=== PATIENT | female | born 1960 | race Caucasian/White ===

== ENCOUNTER → 2022-08-05 | Outpatient (CLI) | payer OTHER ==
--- NOTE | 2022-09-02 09:26 | MM ---
Reason for Exam: Screening (asymptomatic). Patient History: Menarche at age 14. Postmenopausal. Patient used Hormonal Contraceptives for 17 years. Paternal grandmother had breast cancer under age 50. Risk Values: Keri 5 year model risk: 1.1%. NCI Lifetime model risk: 5.2%. Prior Study Comparison: No prior studies available for comparison. Tissue Density: The breast tissue is heterogeneously dense. This may lower the sensitivity of mammography. Findings: Analyzed By CAD. There is no suspicious group of microcalcifications or new suspicious mass in either breast. Overall Assessment: Negative, BI-RAD 1 Management: Screening Mammogram of both breasts in [address] [facility] will attempt to contact patient to return for supplemental views and ultrasound if indicated. Patient should continue monthly self-breast exams. A clinical breast exam by your physician is recommended on an annual basis. This exam should not preclude additional follow-up of suspicious palpable abnormalities. Note on Keri scores and lifetime risk: 1. A Keri score greater than 3% is considered moderate risk. If this is the case, consider specialist referral to assess eligibility for a risk reducing agent. 2. If overall lifetime risk for the development of breast cancer is 20% or higher, the patient may qualify for future screening with alternating mammogram and breast MRI. Electronically signed and approved by: Neo Mckeon DO
== END | disposition home or self-care (01) ==
LOC: RADMAMWWP 15:31
PROVIDERS: ATTEND Family Medicine
DX: Z12.31 Encounter for screening mammogram for malignant neoplasm of breast (principal); Z78.0 Asymptomatic menopausal state; Z80.3 Family history of malignant neoplasm of breast
CPT/HCPCS: 77063; 77067

== ENCOUNTER → 2022-08-20 | Outpatient (CLI) | payer OTHER ==
--- NOTE | 2022-08-20 15:02 | CTL ---
EXAMINATION TYPE: CT Low Dose Lung DATE OF EXAM ORDERED: 08/20/2022 HISTORY: Z87.891. Lung cancer screening. 30 pack-year history, quit [address] DLP: 64.[address] CTDI: 1.8 mGy Automated exposure control for dose reduction was used. SCREENING VISIT: First COMPARISON: None TECHNIQUE: Low dose computed tomography scan was performed through the chest at 1 mm thick sections a nd reconstructed images in multiple planes at 1 mm and [address] DIAGNOSTIC QUALITY: Satisfactory FINDINGS: LUNG NODULES: No clinically significant pulmonary nodules. LUNGS: COPD: Severity: Mild Fibrosis: Severity: None Lymph nodes: None Other findings: Scarring within the lingula. RIGHT PLEURAL SPACE: Effusion: None Calcification: None Thickening: None Pneumothorax: None LEFT PLEURAL SPACE: Effusion: None Calcification: None Thickening: None Pneumothorax: None HEART: Heart Size: Normal Coronary Calcification: None Pericardial Effusion: None OTHER FINDINGS: Upper abdomen: None Bony thorax: None Supraclavicular region: None Other: None IMPRESSION: 1. No clinically significant pulmonary nodules. 2. Mild COPD changes. CT LUNG RAD AND CT CHEST RECOMMENDATION: Lung-Rad 1 Negative: Continue annual screening with LDCT in 12 months. S Modifier (other clinically significant findings): None
== END | disposition home or self-care (01) ==
LOC: RADCTMAIN 13:52
PROVIDERS: ATTEND Family Medicine
DX: Z12.2 Encounter for screening for malignant neoplasm of respiratory organs (principal); J44.9 Chronic obstructive pulmonary disease, unspecified; Z87.891 Personal history of nicotine dependence
CPT/HCPCS: 71271

== ENCOUNTER 2023-06-29 12:31 | Inpatient (IN) | payer OTHER ==
[2023-06-29 12:55] LABS: Basophils # (A) 0.1 k/uL (0-0.2); Basophils % (A) 1 %; Eosinophils # (A) 0.3 k/uL (0-0.7); Eosinophils % (A) 2 %; HCT 29.4 % (34.0-46.0); HGB 9.3 gm/dL (11.4-16.0); Hypochromasia Slight; Lymphocytes # (A) 1.3 k/uL (1.0-4.8); Lymphocytes % (A) 7 %; MCH 27.2 pg (25.0-35.0); MCHC 31.6 g/dL (31.0-37.0); MCV 86.1 fL (80.0-100.0); Mean Platelet Volume 7.7; Monocytes # (A) 0.8 k/uL (0-1.0); Monocytes % (A) 5 %; Neutrophils % (A) 85 %; Platelet Count 665 k/uL (150-450); RBC 3.41 m/uL (3.80-5.40); WBC 18.7 k/uL (3.8-10.6)
--- NOTE | 2023-06-29 13:33 | ED ---
Weakness HPI - General Source: patient, RN notes reviewed Mode of arrival: EMS <Gail Hogan - Last Filed: 06/29/23 13:27> <Nathaniel Wilcox - Last Filed: 06/29/23 19:11> - General Chief complaint: Weakness Stated complaint: Weakness Time Seen by Provider: 06/29/23 12:45 - History of Present Illness Initial comments: Quick Note- This is a 62-year-old female presents to the emergency department chief complaint of muscle weakness and fatigue. She states that she has been experiencing exhaustion and fatigue over the past month states that she is very tired and feels she is unable to complete ADLs due to muscle fatigue. (Gail Hogan) This is a 62-year-old female who presents to the emergency department with a chief complaint of muscle aches and fatigue. Patient states that started about 3 weeks because got progressively worse. Patient states over the last couple days she has not been drinking or eating much because every time she does she vomits. Patient denies any fever chills or cough or patient denies chest pain or difficulty breathing. Patient denies any abdominal pain. Patient denies any headache patient denies numbness or weakness. Patient states she has bodyaches and her and her legs arms and now on her back. Patient denies any previous kidney history patient denies any medication changes. (Nathaniel Wilcox) - Related Data Home Medications Medication Instructions Recorded Confirmed Albuterol Sulfate [Ventolin HFA] 2 puff INHALATION RT-Q6H PRN 06/29/23 06/29/23 Cholecalciferol [Vitamin D3 (25 25 mcg PO DAILY 06/29/23 06/29/23 Mcg = 1000 Iu)] Cyanocobalamin (Vitamin B-12) 1,000 mcg PO DAILY 06/29/23 06/29/23 [Vitamin B-12] Fluticasone/Umeclidin/Vilanter 1 puff INHALATION RT-DAILY 06/29/23 06/29/23 [Trelegy Ellipta 200-62.5-25] Multivit-Min/FA/Lycopen/Lutein 1 tab PO DAILY 06/29/23 06/29/23 [Centrum Silver Tablet] Allergies Allergy/AdvReac Type Severity Reaction Status Date / Time No Known Allergies Allergy Verified 06/29/23 14:45 Review of Systems ROS Other: All systems not noted in ROS Statement are negative. <Gail Hogan - Last Filed: 06/29/23 13:27> ROS Other: All systems not noted in ROS Statement are negative. <Nathaniel Wilcox - Last Filed: 06/29/23 19:11> ROS Statement: Those systems with pertinent positive or pertinent negative responses have been documented in the HPI. Past Medical History Past Medical History: COPD Past Psychological History: No Psychological Hx Reported <Gail Hogan - Last Filed: 06/29/23 13:27> General Exam <Gail Hogan - Last Filed: 06/29/23 13:27> <Nathaniel Wilcox - Last Filed: 06/29/23 19:11> - General Exam Comments Initial Comments: Visual Physical Exam Vital signs reviewed General: Well-appearing, nontoxic, no acute distress. Head: Normocephalic, atraumatic Eyes: PERRLA, EOMI ENT: Airway patent Chest: Nonlabored breathing Skin: No visual rash, normal skin tone Neuro: Alert and oriented 3 Musculoskeletal: No gross abnormalities (Stieler,Gail) GENERAL: Patient is well-developed and well-nourished. Patient is nontoxic and well- hydrated and is in mild distress. ENT: Neck is soft and supple. No significant lymphadenopathy is noted. Oropharynx is clear. Moist mucous membranes. Neck has full range of motion without eliciting any pain. EYES: The sclera were anicteric and conjunctiva were pink and moist. Extraocular movements were intact and pupils were equal round and reactive to light. Eyelids were unremarkable. PULMONARY: Unlabored respirations. Good breath sounds bilaterally. No audible rales rhonchi or wheezing was noted. CARDIOVASCULAR: There is a regular rate and rhythm without any murmurs gallops or rubs. ABDOMEN: Soft and nontender with normal bowel sounds. SKIN: Skin is clear with no lesions or rashes and otherwise unremarkable. NEUROLOGIC: Patient is alert and oriented x3. Cranial nerves II through XII are grossly intact. Motor and sensory are also intact. Normal speech, volume and content. Symmetrical smile. MUSCULOSKELETAL: Normal extremities with adequate strength and full range of motion. No lower extremity swelling or edema. No calf tenderness. LYMPHATICS: No significant lymphadenopathy is noted PSYCHIATRIC: Normal psychiatric evaluation. (Nathaniel Wilcox) Course Vital Signs 06/29/23 06/29/23 12:32 17:09 Temperature 97.7 F Pulse Rate 84 87 Respiratory 16 16 Rate Blood Pressure 126/73 146/83 O2 Sat by Pulse 99 97 Oximetry Medical Decision Making - Lab Data Result diagrams: 06/29/23 12:39 <Gail Hogan - Last Filed: 06/29/23 13:27> - Lab Data Result diagrams: 06/29/23 12:39 06/29/23 12:39 <Nathaniel Wilcox - Last Filed: 06/29/23 19:11> - Medical Decision Making I completed the quick note portion of this chart signed Gail Hogan PA-C (Gail Hogan) EKG is interpreted by myself read EKG shows a sinus rhythm at 71 bpm parables 139 QRS is 80 QT interval 3 8 QTc is 411. Patient's EKG shows no ST segment elevation or depression. Was pt. sent in by a medical professional or institution (RANDEE Pierce, HEATING MECHANIC, urgent care, hospital, or [place] health care facility...) When possible be specific @ -No Did you speak to anyone other than the patient for history (EMS, parent, family, police, friend...)? What history was obtained from this source @ -No Did you review nursing and triage notes (agree or disagree)? Why? @ -I reviewed and agree with nursing and triage notes Were old charts reviewed (outside hosp., previous admission, EMS record, old EKG, old radiological studies, urgent care reports/EKG's, [place] health care facility records)? Report findings @ -I compared patient's creatinine today is significantly elevated to creatinine from a prior visit. Differential Diagnosis (chest pain, altered mental status, abdominal pain women, abdominal pain men, vaginal bleeding, weakness, fever, dyspnea, syncope, headache, dizziness, GI bleed, back pain, seizure, CVA, palpatations, mental health, musculoskeletal)? @ -Not applicable EKG interpreted by me (3pts min.). @ -As above X-rays interpreted by me (1pt min.). @ -Chest x-ray shows no acute abnormality CT interpreted by me (1pt min.). @ -None done U/S interpreted by me (1pt. min.). @ -None done What testing was considered but not performed or refused? (CT, X-rays, U/S, labs)? Why? @ -None What meds were considered but not given or refused? Why? @ -None Did you discuss the management of the patient with other professionals (professionals i.e. , PA, HEATING MECHANIC, lab, RT, psych nurse, social media content manager, medical surgical tech, teacher, chief lifestyle officer, cyanide case hardener)? Give summary @ -I spoke with Dr. Marrero he agreed admit the patient admit the patient. Was smoking cessation discussed for >3mins.? @ -No Was critical care preformed (if so, how long)? @ -No Were there social determinants of health that impacted care today? How? (Homelessness, low income, unemployed, alcoholism, drug addiction, transportation, low edu. Level, literacy, decrease access to med. care, [facility], rehab)? @ -No Was there de-escalation of care discussed even if they declined (Discuss DNR or withdrawal of care, Hospice)? DNR status @ -No What co-morbidities impacted this encounter? (DM, HTN, Smoking, COPD, CAD, Cancer, CVA, ARF, Chemo, Hep., AIDS, mental health diagnosis, sleep apnea, morbid obesity)? @ -None Was patient admitted / discharged? Hospital course, mention meds given and route, prescriptions, significant lab abnormalities, going to OR and other pertinent info. @ -Patient was in acute renal failure. Patient will be started on Rocephin secondary to the fact that the patient's white count was 18,000 I did send a urine culture as well. I ordered an ultrasound for the patient and gave the patient some fluids and I did give the patient antibiotics secondary to the high white count and possible urinary tract infection. Undiagnosed new problem with uncertain prognosis? @ -Acute renal failure Drug Therapy requiring intensive monitoring for toxicity (Heparin, Nitro, Insulin, Cardizem)? @ -No Were any procedures done? @ -No Diagnosis/symptom? @ -Acute renal Acute, or Chronic, or Acute on Chronic? @ -Acute Uncomplicated (without systemic symptoms) or Complicated (systemic symptoms)? @ -Complicated Side effects of treatment? @ -No Exacerbation, Progression, or Severe Exacerbation? @ -No Poses a threat to life or bodily function? How? (Chest pain, [place], [place], pneumonia, PE, COPD, DKA, ARF, appy, cholecystitis, CVA, Diverticulitis, Homicidal, Suicidal, threat to staff... and all critical care pts) @ -Yes this could be life-threatening secondary to electrolyte abnormalities. (Nathaniel Wilcox) - Lab Data Lab Results 06/29/23 06/29/23 06/29/23 Range/Units 12:39 12:39 14:31 WBC 18.7 H (3.8-10.6) k/uL RBC 3.41 L (3.80-5.40) m/uL Hgb 9.3 L (11.4-16.0) gm/dL Hct 29.4 L (34.0-46.0) % MCV 86.1 (80.0-100.0) fL MCH 27.2 (25.0-35.0) pg MCHC 31.6 (31.0-37.0) g/dL RDW 15.0 (11.5-15.5) % Plt Count 665 H (150-450) k/uL MPV 7.7 Neutrophils % 85 % Lymphocytes % 7 % Monocytes % 5 % Eosinophils % 2 % Basophils % 1 % Neutrophils # 16.0 H (1.3-7.7) k/uL Lymphocytes # 1.3 (1.0-4.8) k/uL Monocytes # 0.8 (0-1.0) k/uL Eosinophils # 0.3 (0-0.7) k/uL Basophils # 0.1 (0-0.2) k/uL Hypochromasia Slight Sodium 136 L (137-145) mmol/L Potassium 4.9 (3.5-5.1) mmol/L Chloride 107 (98-107) mmol/L Carbon Dioxide 18 L (22-30) mmol/L Anion Gap 11 mmol/L BUN 73 H (7-17) mg/dL Creatinine 7.02 H* (0.52-1.04) mg/dL Est GFR (CKD-EPI)AfAm 7 (>60 ml/min/1.73 sqM) Est GFR (CKD-EPI)NonAf 6 (>60 ml/min/1.73 sqM) Glucose 105 H (74-99) mg/dL Plasma Lactic Acid [place]yson 1.2 (0.7-2.0) mmol/L Calcium 8.7 (8.4-10.2) mg/dL Magnesium 2.3 (1.6-2.3) mg/dL Total Bilirubin 0.4 (0.2-1.3) mg/dL AST 24 (14-36) U/L ALT 18 (4-34) U/L Alkaline Phosphatase 110 (38-126) U/L Creatine Kinase (30-135) U/L Total Protein 5.6 L (6.3-8.2) g/dL Albumin 2.6 L (3.5-5.0) g/dL TSH (0.465-4.680) mIU/L Urine Color Urine Appearance (Clear) Urine pH (5.0-8.0) Ur Specific [place] (1.001-1.035) Urine Protein (Negative) Urine Glucose (UA) (Negative) Urine Ketones (Negative) Urine Blood (Negative) Urine Nitrite (Negative) Urine Bilirubin (Negative) Urine Urobilinogen (<2.0) mg/dL Ur Leukocyte Esterase (Negative) Urine RBC (0-5) /hpf Urine WBC (0-5) /hpf Ur Squamous Epith Cells (0-4) /hpf Amorphous Sediment (None) /hpf RBC Casts (0) /lpf Urine Mucus (None) /hpf 06/29/23 06/29/23 06/29/23 Range/Units 14:31 14:31 18:07 WBC (3.8-10.6) k/uL RBC (3.80-5.40) m/uL Hgb (11.4-16.0) gm/dL Hct (34.0-46.0) % MCV (80.0-100.0) fL MCH (25.0-35.0) pg MCHC (31.0-37.0) g/dL RDW (11.5-15.5) % Plt Count (150-450) k/uL MPV Neutrophils % % Lymphocytes % % Monocytes % % Eosinophils % % Basophils % % Neutrophils # (1.3-7.7) k/uL Lymphocytes # (1.0-4.8) k/uL Monocytes # (0-1.0) k/uL Eosinophils # (0-0.7) k/uL Basophils # (0-0.2) k/uL Hypochromasia Sodium (137-145) mmol/L Potassium (3.5-5.1) mmol/L Chloride (98-107) mmol/L Carbon Dioxide (22-30) mmol/L Anion Gap mmol/L BUN (7-17) mg/dL Creatinine (0.52-1.04) mg/dL Est GFR (CKD-EPI)AfAm (>60 ml/min/1.73 sqM) Est GFR (CKD-EPI)NonAf (>60 ml/min/1.73 sqM) Glucose (74-99) mg/dL Plasma Lactic Acid Jeyson (0.7-2.0) mmol/L Calcium (8.4-10.2) mg/dL Magnesium (1.6-2.3) mg/dL Total Bilirubin (0.2-1.3) mg/dL AST (14-36) U/L ALT (4-34) U/L Alkaline Phosphatase (38-126) U/L Creatine Kinase 24 L (30-135) U/L Total Protein (6.3-8.2) g/dL Albumin (3.5-5.0) g/dL TSH 2.230 (0.465-4.680) mIU/L Urine Color Colorless Urine Appearance Cloudy H (Clear) Urine pH 5.5 (5.0-8.0) Ur Specific [place] 1.012 (1.001-1.035) Urine Protein 1+ H (Negative) Urine Glucose (UA) Negative (Negative) Urine Ketones Negative (Negative) Urine Blood Moderate H (Negative) Urine Nitrite Negative (Negative) Urine Bilirubin Negative (Negative) Urine Urobilinogen <2.0 (<2.0) mg/dL Ur Leukocyte Esterase Small H (Negative) Urine RBC 126 H (0-5) /hpf Urine WBC 13 H (0-5) /hpf Ur Squamous Epith Cells 2 (0-4) /hpf Amorphous Sediment Rare H (None) /hpf RBC Casts 5 (0) /lpf Urine Mucus Rare H (None) /hpf Disposition <Gail Hogan - Last Filed: 06/29/23 13:27> Time of Disposition: 19:11 <Nathaniel Wilcox - Last Filed: 06/29/23 19:11> Clinical Impression: Acute renal failure Disposition: ADMITTED IP TO THIS HOSP Referrals: Betsy Daniels MD [Primary Care Provider] - 1-2 days
--- NOTE | 2023-06-29 14:02 | XR ---
EXAMINATION TYPE: XR chest 2V DATE OF EXAM: 06/29/2023 1:55 PM CLINICAL INDICATION:Female, 62 years old with history of fatigue; [facility] COMPARISON: No comparison radiographs of the chest. TECHNIQUE: XR chest 2V Frontal and lateral views of the chest. FINDINGS: Lungs/Pleura: There is no evidence of pleural effusion, focal consolidation, or pneumothorax. Lungs appear hyperinflated but clear. Pulmonary vascularity: Unremarkable. Heart/mediastinum: Cardiomediastinal silhouette is unremarkable. Musculoskeletal: No acute osseous pathology. Other findings: None Lines/Tubes: None. IMPRESSION: No acute cardiopulmonary disease/process.
[2023-06-29 14:17] LABS: ALT 18 U/L (4-34); AST 24 U/L (14-36); African American GFR (CKD) 7 (>60 ml/min/1.73 sqM); Albumin 2.6 g/dL (3.5-5.0); Alkaline Phosphatase 110 U/L (38-126); Anion Gap 11 mmol/L; Blood Urea Nitrogen 73 mg/dL (7-17); Calcium 8.7 mg/dL (8.4-10.2); Carbon Dioxide 18 mmol/L (22-30); Chloride 107 mmol/L (98-107); Glucose 105 mg/dL (74-99); Magnesium 2.3 mg/dL (1.6-2.3); Non-African American GFR(CKD) 6 (>60 ml/min/1.73 sqM); Potassium 4.9 mmol/L (3.5-5.1); Sodium 136 mmol/L (137-145); Total Bilirubin 0.4 mg/dL (0.2-1.3); Total Protein 5.6 g/dL (6.3-8.2)
[2023-06-29] MEDS: SODIUM CHLORIDE 0.9% 500 ML 500 ML IV ONE (17:08)
[2023-06-29] MEDS: SODIUM CHLORIDE 0.9% 1,000 ML IV ONE (17:08)
[2023-06-29 18:28] LABS: Amorphous Sediment,Urine Rare /hpf; Appearance,Urine Cloudy (Clear); Bilirubin,Urine Negative (Negative); Blood,Urine Moderate (Negative); Color,Urine Colorless; Glucose,Urine (UA) Negative (Negative); Ketones,Urine Negative (Negative); Leukocyte Esterase,Urine Small (Negative); Mucus,Urine Rare /hpf; Nitrite,Urine Negative (Negative); PH, Urine 5.5 (5.0-8.0); Protein,Urine 1+ (Negative); RBC,Urine 126 /hpf (0-5); Red Blood Cell Casts,Urine 5 /lpf (0); Specific Gravity,Urine 1.012 (1.001-1.035); Squamous Epithelial Cell,Urine 2 /hpf (0-4); Urobilinogen,Urine <2.0 mg/dL (<2.0); WBC,Urine 13 /hpf (0-5)
--- NOTE | 2023-06-29 20:54 | US ---
EXAMINATION TYPE: US renals and bladder DATE OF EXAM: 06/29/2023 COMPARISON: NONE CLINICAL INDICATION: Female, 62 years old with history of Hematuria, renal failure; hematuria. Acute renal failure EXAM MEASUREMENTS: Right Kidney: 12.8 x 5.6 x 4.3 cm Left Kidney: 11.6 x 5.9 x 5.7 cm Right Kidney: No hydronephrosis or masses seen Left Kidney: No hydronephrosis or masses seen Bladder: wnl Bilateral Jets seen: No There is no evidence for hydronephrosis at this point in time. No nephrolithiasis is seen. No per s are identified. The urinary bladder is anechoic. IMPRESSION: 1. Ureteral jets not visualized. 2. Otherwise unremarkable study without evidence of hydronephrosis or shadowing calculus.
[2023-06-29] MEDS: cefTRIAXone IN SWFI 1,000 MG/10 ML SYRINGE IVP STA ×2 (22:42→22:43)
[2023-06-30 07:34] LABS: Basophils # (A) 0.1 k/uL (0-0.2); Basophils % (A) 1 %; Eosinophils # (A) 0.6 k/uL (0-0.7); Eosinophils % (A) 4 %; HCT 26.5 % (34.0-46.0); HGB 8.4 gm/dL (11.4-16.0); Hypochromasia Slight; Lymphocytes # (A) 1.5 k/uL (1.0-4.8); Lymphocytes % (A) 10 %; MCH 27.5 pg (25.0-35.0); MCHC 31.6 g/dL (31.0-37.0); MCV 87.1 fL (80.0-100.0); Monocytes # (A) 0.8 k/uL (0-1.0); Monocytes % (A) 5 %; Neutrophils # (A) 12.2 k/uL (1.3-7.7); Neutrophils % (A) 80 %; Platelet Count 589 k/uL (150-450); RBC 3.05 m/uL (3.80-5.40); WBC 15.3 k/uL (3.8-10.6)
[2023-06-30 08:07] LABS: ALT 19 U/L (4-34); AST 26 U/L (14-36); African American GFR (CKD) 6 (>60 ml/min/1.73 sqM); Albumin 2.2 g/dL (3.5-5.0); Alkaline Phosphatase 124 U/L (38-126); Anion Gap 10 mmol/L; Blood Urea Nitrogen 75 mg/dL (7-17); Calcium 7.8 mg/dL (8.4-10.2); Carbon Dioxide 15 mmol/L (22-30); Chloride 112 mmol/L (98-107); Glucose 91 mg/dL (74-99); Non-African American GFR(CKD) 5 (>60 ml/min/1.73 sqM); Potassium 5.1 mmol/L (3.5-5.1); Sodium 137 mmol/L (137-145); Total Bilirubin 0.3 mg/dL (0.2-1.3); Total Protein 4.9 g/dL (6.3-8.2)
[2023-06-30] MEDS ORDERED: ALBUTEROL HFA INHALER INHALATION PRN (10:49)
--- NOTE | 2023-06-30 10:53 | P.HPIM ---
History of Present Illness H&P Date: 06/30/23 this is a 62-year-old female patient of Dr. Daniels who presented with complaints ofmuscle weakness and fatigue has been occurring over the past month patient reports she's had trouble completing her ADLs because of this muscle fatigue. Patient denies significant medical history except for mild COPD. Patient denies any recent illness or infection. Patient denies any change in medication. Patient denies changed diet.chest x-ray completed showing no acute cardiopulmonary disease. Renal ultrasound completed showing no evidence of hydronephrosis or shadowing calculus. labwork revealing WBC of 18.7, hemoglobin 8.4, creatinine 7.02, bun 73. UA showing small amount of leukocyte Estrace. This time blood and urine cultures will be ordered. Patient started on IV Rocephin. Patient started normal saline. Nephrology services have been consulted. repeat labs ordered Review of Systems please refer to HPI otherwise unremarkable Past Medical History Past Medical History: COPD Past Psychological History: No Psychological Hx Reported Medications and Allergies Home Medications Medication Instructions Recorded Confirmed Type Albuterol Sulfate [Ventolin HFA] 2 puff INHALATION RT-Q6H PRN 06/29/23 06/29/23 History Cholecalciferol [Vitamin D3 (25 25 mcg PO DAILY 06/29/23 06/29/23 History Mcg = 1000 Iu)] Cyanocobalamin (Vitamin B-12) 1,000 mcg PO DAILY 06/29/23 06/29/23 History [Vitamin B-12] Fluticasone/Umeclidin/Vilanter 1 puff INHALATION RT-DAILY 06/29/23 06/29/23 History [Trelegy Ellipta 200-62.5-25] Multivit-Min/FA/Lycopen/Lutein 1 tab PO DAILY 06/29/23 06/29/23 History [Centrum Silver Tablet] Allergies Allergy/AdvReac Type Severity Reaction Status Date / Time No Known Allergies Allergy Verified 06/29/23 14:45 Physical Exam Vitals: Vital Signs Temp Pulse Resp BP Pulse Ox 06/30/23 10:10 98.4 F 81 20 137/66 95 06/30/23 07:35 98.1 F 71 17 129/68 95 06/30/23 05:25 98.3 F 89 16 135/71 93 L 06/30/23 02:59 88 16 130/82 95 06/30/23 02:47 98.8 F 88 15 127/62 96 06/29/23 23:00 99.4 F 83 17 144/63 97 06/29/23 20:54 96 18 141/79 98 06/29/23 17:09 87 16 146/83 97 06/29/23 12:32 97.7 F 84 16 126/73 99 Intake and Output 06/29/23 06/30/23 06/30/23 22:59 06:59 14:59 Other: # Voids 2 Head normocephalic Neck supple Lungs clear to auscultation bilaterally no wheezing or crackles Heart regular rate and rhythm S1-S2, no rub or gallop Abdomen is soft nontender nondistended positive bowel sounds no hepatosplenomega ly Extremities no edema Neuro alert and orientated to 3 Results CBC & Chem 7: 06/30/23 07:18 06/30/23 07:18 Labs: Abnormal Lab Results - Last 24 Hours (Table) 06/29/23 06/29/23 06/29/23 Range/Units 12:39 12:39 14:31 WBC 18.7 H (3.8-10.6) k/uL RBC 3.41 L (3.80-5.40) m/uL Hgb 9.3 L (11.4-16.0) gm/dL Hct 29.4 L (34.0-46.0) % Plt Count 665 H (150-450) k/uL Neutrophils # 16.0 H (1.3-7.7) k/uL Sodium 136 L (137-145) mmol/L Chloride (98-107) mmol/L Carbon Dioxide 18 L (22-30) mmol/L BUN 73 H (7-17) mg/dL Creatinine 7.02 H* (0.52-1.04) mg/dL Glucose 105 H (74-99) mg/dL Calcium (8.4-10.2) mg/dL Creatine Kinase 24 L (30-135) U/L Total Protein 5.6 L (6.3-8.2) g/dL Albumin 2.6 L (3.5-5.0) g/dL Urine Appearance (Clear) Urine Protein (Negative) Urine Blood (Negative) Ur Leukocyte Esterase (Negative) Urine RBC (0-5) /hpf Urine WBC (0-5) /hpf Amorphous Sediment (None) /hpf Urine Mucus (None) /hpf 06/29/23 06/30/23 06/30/23 Range/Units 18:07 07:18 07:18 WBC 15.3 H (3.8-10.6) k/uL RBC 3.05 L (3.80-5.40) m/uL Hgb 8.4 L (11.4-16.0) gm/dL Hct 26.5 L (34.0-46.0) % Plt Count 589 H (150-450) k/uL Neutrophils # 12.2 H (1.3-7.7) k/uL Sodium (137-145) mmol/L Chloride 112 H (98-107) mmol/L Carbon Dioxide 15 L (22-30) mmol/L BUN 75 H (7-17) mg/dL Creatinine 7.41 H* (0.52-1.04) mg/dL Glucose (74-99) mg/dL Calcium 7.8 L (8.4-10.2) mg/dL Creatine Kinase (30-135) U/L Total Protein 4.9 L (6.3-8.2) g/dL Albumin 2.2 L (3.5-5.0) g/dL Urine Appearance Cloudy H (Clear) Urine Protein 1+ H (Negative) Urine Blood Moderate H (Negative) Ur Leukocyte Esterase Small H (Negative) Urine RBC 126 H (0-5) /hpf Urine WBC 13 H (0-5) /hpf Amorphous Sediment Rare H (None) /hpf Urine Mucus Rare H (None) /hpf Assessment and Plan Assessment: 1. Muscle aches and fatigue likely secondary from acute renal failure 2. Acute renal failure 3. Leukocytosis likely secondary from UTI. Urine and blood cultures ordered 3. History of COPD DVT prophylaxis heparin. GI prophylaxis Protonix Nephrology service is consulted Blood and urine cultures ordered Patient started on IV Rocephin Repeat labs ordered Time with Patient: Greater than 30 (Greater than 60% of the total time spent in counseling and coordination of care)
[2023-06-30] MEDS: SODIUM CHLORIDE 0.9% 1,000 ML IV SCH (11:11)
--- NOTE | 2023-06-30 11:52 | P.NPCON ---
History of Present Illness - Reason for Consult acute renal failure - History of Present Illness Reason for consultation: Acute kidney injury History of present illness: Patient is a 62-year-old female seen in renal consultation for acute kidney injury. Patient's creatinine in January 2023 was 0.8. This admission it was elevated at 7.02 and is 7.41 today. Patient came to the hospital due to generalized weakness and bodyaches going on for over a month. Patient states she took steroids and antibiotics given by her primary care physician with improvement in symptoms but the symptoms came right back after she finished the medications. Patient denies use of nonsteroidals. Patient denies family h istory of renal disease. Patient denies history of diabetes or coronary artery disease. Patient states oral intake has been poor. She did have 2 episodes of vomiting but now resolved. She denies gross hematuria or dysuria. Hemodynamically stable. Denies chest pain or shortness of breath. Denies history of autoimmune disease. No rash. Vital signs are stable. General: No acute distress. HEENT: Head exam is unremarkable. LUNGS: No audible rhonchi or wheezes. HEART: Rate and Rhythm are regular. ABDOMEN: Nontender. EXTREMITITES: No edema. Past Medical History Past Medical History: COPD Past Psychological History: No Psychological Hx Reported Medications and Allergies Home Medications Medication Instructions Recorded Confirmed Type Albuterol Sulfate [Ventolin HFA] 2 puff INHALATION RT-Q6H PRN 06/29/23 06/29/23 History Cholecalciferol [Vitamin D3 (25 25 mcg PO DAILY 06/29/23 06/29/23 History Mcg = 1000 Iu)] Cyanocobalamin (Vitamin B-12) 1,000 mcg PO DAILY 06/29/23 06/29/23 History [Vitamin B-12] Fluticasone/Umeclidin/Vilanter 1 puff INHALATION RT-DAILY 06/29/23 06/29/23 History [Trelegy Ellipta 200-62.5-25] Multivit-Min/FA/Lycopen/Lutein 1 tab PO DAILY 06/29/23 06/29/23 History [Centrum Silver Tablet] Allergies Allergy/AdvReac Type Severity Reaction Status Date / Time No Known Allergies Allergy Verified 06/29/23 14:45 Physical Exam Vitals: Vital Signs Temp Pulse Resp BP Pulse Ox 06/30/23 10:10 98.4 F 81 20 137/66 95 06/30/23 07:35 98.1 F 71 17 129/68 95 06/30/23 05:25 98.3 F 89 16 135/71 93 L 06/30/23 02:59 88 16 130/82 95 06/30/23 02:47 98.8 F 88 15 127/62 96 06/29/23 23:00 99.4 F 83 17 144/63 97 06/29/23 20:54 96 18 141/79 98 06/29/23 17:09 87 16 146/83 97 06/29/23 12:32 97.7 F 84 16 126/73 99 Intake and Output 06/29/23 06/30/23 06/30/23 22:59 06:59 14:59 Other: # Voids 2 Results - Lab Results Most recent lab results Calcium 7.8 mg/dL (8.4-10.2) L 06/30/23 07:18 Magnesium 2.3 mg/dL (1.6-2.3) 06/29/23 12:39 06/30/23 07:18 06/30/23 07:18 Assessment and Plan Plan: Assessment: 1. Acute kidney injury secondary to ATN. Rule out GN. No hydronephrosis noted on kidney ultrasound. Creatinine 7.41 today. Creatinine 0.8 in January 2023. UA does show 1+ protein and RBCs as well as RBC casts. 2. Metabolic acidosis secondary to acute kidney injury. 3. Anemia. Rule out iron deficiency. Plan: Change IV fluids to isotonic sodium bicarb drip. Repeat UA. Check UPC. Check serologies. Check iron studies. Avoid nephrotoxins. Check bladder scan to rule out urinary retention. Kidney biopsy discussed with patient for definitive diagnosis. Continue to monitor renal function and urine output. Continue to assess daily for need for renal replacement therapy. Plan to start dialysis tomorrow if no improvement in renal function. Thank you for the consultation. I will continue to follow the patient with you during her hospital stay.
[2023-06-30] MEDS: DEXTROSE 5% IN WATER 1,000 ML with SODIUM BICARB (1 MEQ/ML) 150 ML IV SCH (11:56)
[2023-06-30] MEDS: IPRATROPIUM 0.5 MG/2.5 ML NEBU INHALATION SCH (14:31)
[2023-06-30 15:38] LABS: Hepatitis A Antibody IgM Nonreactive (Nonreactive)
[2023-06-30 15:39] LABS: Hepatitis B Core IgM Nonreactive (Nonreactive); Hepatitis B Surface Antigen Nonreactive (Nonreactive); Hepatitis C IgG Antibody Nonreactive (Nonreactive)
[2023-06-30 15:56] LABS: % Iron Saturation 3.87 (12.00-45.00)
[2023-06-30 16:42] LABS: Uric Acid 8.4 mg/dL (3.7-7.4)
[2023-06-30 16:52] LABS: Anti-DNA, DS unit <1.0 IU/mL; DNA Double-Stranded Negative (Negative)
[2023-06-30 17:02] LABS: C Reactive Protein 19.8 mg/dL (<1.0)
[2023-06-30 19:30] LABS: Creatinine,Urine Random 69.6 mg/dL; Protein/Creatinine Ratio,Urine 1.437
[2023-06-30 20:05] LABS: Amorphous Sediment,Urine Rare /hpf; Appearance,Urine Cloudy (Clear); Bacteria,Urine Occasional /hpf; Bilirubin,Urine Negative (Negative); Blood,Urine Moderate (Negative); Color,Urine Colorless; Glucose,Urine (UA) Negative (Negative); Ketones,Urine Negative (Negative); Leukocyte Esterase,Urine Small (Negative); Mucus,Urine Rare /hpf; Nitrite,Urine Negative (Negative); PH, Urine 5.5 (5.0-8.0); Protein,Urine 1+ (Negative); RBC,Urine 75 /hpf (0-5); Specific Gravity,Urine 1.012 (1.001-1.035); Squamous Epithelial Cell,Urine 7 /hpf (0-4); Urobilinogen,Urine <2.0 mg/dL (<2.0); WBC,Urine 11 /hpf (0-5)
[2023-06-30] MEDS: SYMBICORT 80-4.5 MCG INHALER INHALATION SCH (20:18)
[2023-06-30] MEDS: HEPARIN SODIUM,PORCINE 5,000 UNIT/ML 1 ML VIAL SQ SCH (21:47)
[2023-06-30] MEDS: HYDROcodone/APAP 5-325MG 1 EACH TAB PO PRN (22:14)
[2023-07-01] MEDS: PANTOPRAZOLE 40 MG TABLET PO SCH (06:35)
[2023-07-01 10:23] LABS: Basophils # (A) 0.1 k/uL (0-0.2); Basophils % (A) 0 %; Eosinophils # (A) 0.5 k/uL (0-0.7); Eosinophils % (A) 3 %; HGB 7.8 gm/dL (11.4-16.0); Hypochromasia Slight; Lymphocytes # (A) 1.1 k/uL (1.0-4.8); Lymphocytes % (A) 7 %; MCH 27.1 pg (25.0-35.0); MCHC 31.1 g/dL (31.0-37.0); MCV 87.1 fL (80.0-100.0); Mean Platelet Volume 7.4; Monocytes # (A) 0.8 k/uL (0-1.0); Monocytes % (A) 5 %; Neutrophils # (A) 13.6 k/uL (1.3-7.7); Neutrophils % (A) 84 %; Platelet Count 561 k/uL (150-450); RBC 2.87 m/uL (3.80-5.40); RDW 15.2 % (11.5-15.5); WBC 16.1 k/uL (3.8-10.6)
--- NOTE | 2023-07-01 10:30 | P.PN ---
Subjective Patient is seen in follow-up for acute kidney injury. Morning labs pending. Has been voiding. On IV fluids. Still not feeling well. Nauseous. Vital signs are stable. General: No acute distress. HEENT: Head exam is unremarkable. LUNGS: No audible rhonchi or wheezes. HEART: Rate and Rhythm are regular. ABDOMEN: Nontender. EXTREMITITES: No edema. Objective - Vital Signs Vital signs: Vital Signs Temp 98.3 F 07/01/23 08:00 Pulse 89 07/01/23 08:00 Resp 16 07/01/23 08:00 BP 147/74 07/01/23 08:00 Pulse Ox 94 L 07/01/23 08:00 FiO2 Intake & Output 06/30/23 07/01/23 07/01/23 18:59 06:59 18:59 Intake Total 118 Output Total 100 Balance -100 118 Weight 68.039 kg Intake: Oral 118 Output: Urine 100 - Labs CBC & Chem 7: 07/01/23 09:32 06/30/23 07:18 Labs: Abnormal Lab Results - Last 24 Hours (Table) 06/30/23 06/30/23 06/30/23 Range/Units 07:18 16:00 16:00 WBC (3.8-10.6) k/uL RBC (3.80-5.40) m/uL Hgb (11.4-16.0) gm/dL Hct (34.0-46.0) % Plt Count (150-450) k/uL Neutrophils # (1.3-7.7) k/uL ESR 48 H (0-30) mm/Hr Uric Acid 8.4 H (3.7-7.4) mg/dL Iron 7 L (50-170) UG/DL TIBC 181 L (228-460) UG/DL % Saturation 3.87 L (12.00-45.00) Transferrin 129.0 L (204.0-354.0) mg/dL Ferritin 995.0 H (10.0-291.0) ng/mL C-Reactive Protein 19.8 H (<1.0) mg/dL Urine Appearance (Clear) Urine Protein (Negative) Urine Blood (Negative) Ur Leukocyte Esterase (Negative) Urine RBC (0-5) /hpf Urine WBC (0-5) /hpf Urine WBC Clumps (None) /hpf Ur Squamous Epith Cells (0-4) /hpf Amorphous Sediment (None) /hpf Urine Bacteria (None) /hpf Urine Mucus (None) /hpf Rheumatoid Factor 27 H (0-15) IU/mL 06/30/23 07/01/23 Range/Units 18:45 09:32 WBC 16.1 H (3.8-10.6) k/uL RBC 2.87 L (3.80-5.40) m/uL Hgb 7.8 L (11.4-16.0) gm/dL Hct 25.0 L (34.0-46.0) % Plt Count 561 H (150-450) k/uL Neutrophils # 13.6 H (1.3-7.7) k/uL ESR (0-30) mm/Hr Uric Acid (3.7-7.4) mg/dL Iron (50-170) UG/DL TIBC (228-460) UG/DL % Saturation (12.00-45.00) Transferrin (204.0-354.0) mg/dL Ferritin (10.0-291.0) ng/mL C-Reactive Protein (<1.0) mg/dL Urine Appearance Cloudy H (Clear) Urine Protein 1+ H (Negative) Urine Blood Moderate H (Negative) Ur Leukocyte Esterase Small H (Negative) Urine RBC 75 H (0-5) /hpf Urine WBC 11 H (0-5) /hpf Urine WBC Clumps Rare H (None) /hpf Ur Squamous Epith Cells 7 H (0-4) /hpf Amorphous Sediment Rare H (None) /hpf Urine Bacteria Occasional H (None) /hpf Urine Mucus Rare H (None) /hpf Rheumatoid Factor (0-15) IU/mL Microbiology - Last 24 Hours (Table) 06/29/23 22:25 Blood Culture - Preliminary Blood Assessment and Plan Plan: Assessment: 1. Acute kidney injury secondary to ATN. Rule out GN. No hydronephrosis noted on kidney ultrasound. Creatinine 7.41 yesterday. Creatinine 0.8 in January 2023. UA does show 1+ protein and RBCs as well as RBC casts. Repeat UA shows protein and blood as well. UPC 1.44 g. 2. Metabolic acidosis secondary to acute kidney injury. 3. Anemia. Iron deficiency noted. Plan: Maintain bicarb drip for now. Follow-up serologies. Negative so far. Add IV iron. Avoid nephrotoxins. Continue to monitor renal function and urine output. If no improvement in renal function, initiate renal replacement therapy today. Consult interventional radiology to schedule for CT-guided kidney biopsy. Will give IV DDAVP prior to kidney biopsy. Patient agreeable with above plan.
[2023-07-01 10:35] LABS: ALT 20 U/L (4-34); AST 24 U/L (14-36); African American GFR (CKD) 6 (>60 ml/min/1.73 sqM); Albumin 2.3 g/dL (3.5-5.0); Alkaline Phosphatase 117 U/L (38-126); Anion Gap 12 mmol/L; Blood Urea Nitrogen 72 mg/dL (7-17); Calcium 7.9 mg/dL (8.4-10.2); Carbon Dioxide 18 mmol/L (22-30); Chloride 104 mmol/L (98-107); Glucose 123 mg/dL (74-99); Non-African American GFR(CKD) 5 (>60 ml/min/1.73 sqM); Potassium 4.3 mmol/L (3.5-5.1); Sodium 134 mmol/L (137-145); Total Bilirubin 0.3 mg/dL (0.2-1.3)
[2023-07-01] MEDS: ONDANSETRON 4 MG/2 ML VIAL IVP PRN (10:35)
[2023-07-01 12:30] LABS: INR 1.1 (<1.2); Prothrombin Time 12.3 sec (10.0-12.5)
[2023-07-01] MEDS: SODIUM FERRIC GLUCONAT-SUCROSE 125 MG in SODIUM CHLORIDE 0.9% 100 ML IVPB SCH (13:10)
[2023-07-01] MEDS: SODIUM CHLORIDE 0.9% 250 ML IV ONE (13:40)
[2023-07-01] MEDS: fentaNYL (PF) 50 MCG/ML 2 ML AMP IVP ONE (14:09)
[2023-07-01 14:10] LABS: Anti-Glomerular Basement Memb <1.5 U/mL (<7.0)
[2023-07-01] MEDS: LIDOCAINE 1% INJ 10MG/ML (20 ML MDV) SQ ONE (14:11)
[2023-07-01] MEDS: MIDAZOLAM 2 MG/2 ML VIAL IVP ONE (14:12)
--- NOTE | 2023-07-01 14:47 | P.GSCN ---
History of Present Illness History of present illness: 62-year-old white female, history of acute kidney injury secondary to ATN patient has a creatinine of 7.41 with metabolic acidosis and anemia consented for placement of a dialysis catheter Neck examination neck is supple no bruit appreciated Chest good in both lungs. Second sound present Abdomen soft nontender Vascular femorals are 1+ Plan is placement dialysis catheter risk and complication discussed Past Medical History Past Medical History: COPD History of Any Multi-Drug Resistant Organisms: None Reported Past Psychological History: No Psychological Hx Reported Smoking Status: Former smoker Medications and Allergies Home Medications Medication Instructions Recorded Confirmed Type Albuterol Sulfate [Ventolin HFA] 2 puff INHALATION RT-Q6H PRN 06/29/23 06/29/23 History Cholecalciferol [Vitamin D3 (25 25 mcg PO DAILY 06/29/23 06/29/23 History Mcg = 1000 Iu)] Cyanocobalamin (Vitamin B-12) 1,000 mcg PO DAILY 06/29/23 06/29/23 History [Vitamin B-12] Fluticasone/Umeclidin/Vilanter 1 puff INHALATION RT-DAILY 06/29/23 06/29/23 History [Trelegy Ellipta 200-62.5-25] Multivit-Min/FA/Lycopen/Lutein 1 tab PO DAILY 06/29/23 06/29/23 History [Centrum Silver Tablet] Allergies Allergy/AdvReac Type Severity Reaction Status Date / Time No Known Allergies Allergy Verified 06/29/23 14:45 Surgical - Exam Vital Signs Temp Pulse Resp BP Pulse Ox 97.7 F 84 16 126/73 99 06/29/23 12:32 06/29/23 12:32 06/29/23 12:32 06/29/23 12:32 06/29/23 12:32 Results - Labs 07/01/23 09:32 07/01/23 09:32 Abnormal Lab Results - Last 24 Hours (Table) 06/30/23 06/30/23 06/30/23 Range/Units 07:18 16:00 16:00 WBC (3.8-10.6) k/uL RBC (3.80-5.40) m/uL Hgb (11.4-16.0) gm/dL Hct (34.0-46.0) % Plt Count (150-450) k/uL Neutrophils # (1.3-7.7) k/uL ESR 48 H (0-30) mm/Hr Sodium (137-145) mmol/L Carbon Dioxide (22-30) mmol/L BUN (7-17) mg/dL Creatinine (0.52-1.04) mg/dL Glucose (74-99) mg/dL Uric Acid 8.4 H (3.7-7.4) mg/dL Calcium (8.4-10.2) mg/dL Iron 7 L (50-170) UG/DL TIBC 181 L (228-460) UG/DL % Saturation 3.87 L (12.00-45.00) Transferrin 129.0 L (204.0-354.0) mg/dL Ferritin 995.0 H (10.0-291.0) ng/mL C-Reactive Protein 19.8 H (<1.0) mg/dL Total Protein (6.3-8.2) g/dL Albumin (3.5-5.0) g/dL Urine Appearance (Clear) Urine Protein (Negative) Urine Blood (Negative) Ur Leukocyte Esterase (Negative) Urine RBC (0-5) /hpf Urine WBC (0-5) /hpf Urine WBC Clumps (None) /hpf Ur Squamous Epith Cells (0-4) /hpf Amorphous Sediment (None) /hpf Urine Bacteria (None) /hpf Urine Mucus (None) /hpf Rheumatoid Factor 27 H (0-15) IU/mL 06/30/23 07/01/23 07/01/23 Range/Units 18:45 09:32 09:32 WBC 16.1 H (3.8-10.6) k/uL RBC 2.87 L (3.80-5.40) m/uL Hgb 7.8 L (11.4-16.0) gm/dL Hct 25.0 L (34.0-46.0) % Plt Count 561 H (150-450) k/uL Neutrophils # 13.6 H (1.3-7.7) k/uL ESR (0-30) mm/Hr Sodium 134 L (137-145) mmol/L Carbon Dioxide 18 L (22-30) mmol/L BUN 72 H (7-17) mg/dL Creatinine 8.13 H* (0.52-1.04) mg/dL Glucose 123 H (74-99) mg/dL Uric Acid (3.7-7.4) mg/dL Calcium 7.9 L (8.4-10.2) mg/dL Iron (50-170) UG/DL TIBC (228-460) UG/DL % Saturation (12.00-45.00) Transferrin (204.0-354.0) mg/dL Ferritin (10.0-291.0) ng/mL C-Reactive Protein (<1.0) mg/dL Total Protein 5.0 L (6.3-8.2) g/dL Albumin 2.3 L (3.5-5.0) g/dL Urine Appearance Cloudy H (Clear) Urine Protein 1+ H (Negative) Urine Blood Moderate H (Negative) Ur Leukocyte Esterase Small H (Negative) Urine RBC 75 H (0-5) /hpf Urine WBC 11 H (0-5) /hpf Urine WBC Clumps Rare H (None) /hpf Ur Squamous Epith Cells 7 H (0-4) /hpf Amorphous Sediment Rare H (None) /hpf Urine Bacteria Occasional H (None) /hpf Urine Mucus Rare H (None) /hpf Rheumatoid Factor (0-15) IU/mL Microbiology - Last 24 Hours (Table) 06/29/23 22:25 Blood Culture - Preliminary Blood Diabetes panel 07/01/23 Range/Units 09:32 Sodium 134 L (137-145) mmol/L Potassium 4.3 (3.5-5.1) mmol/L Chloride 104 (98-107) mmol/L Carbon Dioxide 18 L (22-30) mmol/L BUN 72 H (7-17) mg/dL Creatinine 8.13 H* (0.52-1.04) mg/dL Glucose 123 H (74-99) mg/dL Calcium 7.9 L (8.4-10.2) mg/dL AST 24 (14-36) U/L ALT 20 (4-34) U/L Alkaline Phosphatase 117 (38-126) U/L Total Protein 5.0 L (6.3-8.2) g/dL Albumin 2.3 L (3.5-5.0) g/dL Calcium panel 07/01/23 Range/Units 09:32 Calcium 7.9 L (8.4-10.2) mg/dL Albumin 2.3 L (3.5-5.0) g/dL Pituitary panel 07/01/23 Range/Units 09:32 Sodium 134 L (137-145) mmol/L Potassium 4.3 (3.5-5.1) mmol/L Chloride 104 (98-107) mmol/L Carbon Dioxide 18 L (22-30) mmol/L BUN 72 H (7-17) mg/dL Creatinine 8.13 H* (0.52-1.04) mg/dL Glucose 123 H (74-99) mg/dL Calcium 7.9 L (8.4-10.2) mg/dL Adrenal panel 07/01/23 Range/Units 09:32 Sodium 134 L (137-145) mmol/L Potassium 4.3 (3.5-5.1) mmol/L Chloride 104 (98-107) mmol/L Carbon Dioxide 18 L (22-30) mmol/L BUN 72 H (7-17) mg/dL Creatinine 8.13 H* (0.52-1.04) mg/dL Glucose 123 H (74-99) mg/dL Calcium 7.9 L (8.4-10.2) mg/dL Total Bilirubin 0.3 (0.2-1.3) mg/dL AST 24 (14-36) U/L ALT 20 (4-34) U/L Alkaline Phosphatase 117 (38-126) U/L Total Protein 5.0 L (6.3-8.2) g/dL Albumin 2.3 L (3.5-5.0) g/dL
--- NOTE | 2023-07-01 14:49 | P.PCN ---
Description of Procedure: Preop diagnosis is acute chronic renal failure Postop same Procedure ultrasound-guided 90 cm dialysis catheter placement right intrajugular approach Patient was brought to the Actuarial Technician right of the neck and chest was prepped and draped in Prestel manner 1% lidocaine plain for the neck and area ultrasound- guided micropuncture introduced right jugular vein micropuncture guide was passed and 4 point dilator advanced of the guidewire created a tunnel tunnel through the tunnel required 19 cm dialysis catheter guidewire proximal to the inferior vena cava dilators low-dose top of the guidewire then placed a sheath on the top of the guidewire through the sheath. 2 dialysis catheter sheath was removed to catheter superior vena cava after injection flushed with heparin saline hep-locked secured with 3-0 nylon patient resting upright patient taught the procedure well plan is x-ray of the chest
[2023-07-01 15:20] LABS: Protein, Total 6.1 g/dL (6.2-8.2)
--- NOTE | 2023-07-01 15:27 | IR ---
EXAMINATION TYPE: IR cvc insert central tunneled DATE OF EXAM: 07/01/2023 FLUOROSCOPY Fluoroscopy time of 0.6 minutes was used during right-sided double-lumen hemodialysis catheter placem ent.. 257 image/s document/s the procedure. 44.95 uGym2 dose.
--- NOTE | 2023-07-01 17:19 | P.PN ---
Subjective Progress Note Date: 07/01/23 this is a 62-year-old female patient of Dr. Daniels who presented with complaints ofmuscle weakness and fatigue has been occurring over the past month patient reports she's had trouble completing her ADLs because of this muscle fatigue. Patient denies significant medical history except for mild COPD. Patient denies any recent illness or infection. Patient denies any change in medication. Patient denies changed diet.chest x-ray completed showing no acute cardiopulmonary disease. Renal ultrasound completed showing no evidence of hydronephrosis or shadowing calculus. labwork revealing WBC of 18.7, hemoglobin 8.4, creatinine 7.02, bun 73. UA showing small amount of leukocyte Estrace. This time blood and urine cultures will be ordered. Patient started on IV Rocephin. Patient started normal saline. Nephrology services have been consulted. repeat labs ordered On 07/01/2023 patient was seen and examined on the medical floor she is alert and oriented 3 in no apparent distress she is complaining of generalized pain and weakness otherwise she denies any complaints, she is receiving her first session of hemodialysis, there is no fever or chills no headache or dizziness no chest pain no shortness of breath no cough no nausea or vomiting no abdominal pain no diarrhea and no urinary symptoms. Objective - Vital Signs Vital signs: Vital Signs Temp 97.6 F 07/01/23 16:00 Pulse 72 07/01/23 16:00 Resp 18 07/01/23 16:00 BP 123/67 07/01/23 16:00 Pulse Ox 93 L 07/01/23 16:00 FiO2 Intake & Output 06/30/23 07/01/23 07/01/23 18:59 06:59 18:59 Intake Total 168 Output Total 100 Balance -100 168 Weight 68.039 kg Intake: IV 50 Oral 118 Output: Urine 100 Other: Voiding Method Toilet - Exam In general patient is alert and oriented x 3 in no distress HEENT head normocephalic and atraumatic Neck is supple no JVD no goiter no lymphadenopathy no carotid bruit Chest examination is clear to auscultation no crackles no wheezing Cardiac exam reveals regular heart sounds S1 and S2 no gallops no murmurs Abdomen is soft nontender no organomegaly with normal bowel sounds Extremity exam reveals no edema no cyanosis or clubbing Neurological examination reveals no gross focal deficits - Labs CBC & Chem 7: 04/25/24 09:32 07/01/23 09:32 Labs: Abnormal Lab Results - Last 24 Hours (Table) 06/30/23 06/30/23 06/30/23 Range/Units 11:48 16:00 16:00 WBC (3.8-10.6) k/uL RBC (3.80-5.40) m/uL Hgb (11.4-16.0) gm/dL Hct (34.0-46.0) % Plt Count (150-450) k/uL Neutrophils # (1.3-7.7) k/uL ESR 48 H (0-30) mm/Hr Sodium (137-145) mmol/L Carbon Dioxide (22-30) mmol/L BUN (7-17) mg/dL Creatinine (0.52-1.04) mg/dL Glucose (74-99) mg/dL Uric Acid 8.4 H (3.7-7.4) mg/dL Calcium (8.4-10.2) mg/dL C-Reactive Protein 19.8 H (<1.0) mg/dL Total Protein (6.3-8.2) g/dL Total Protein (PEP) 6.1 L (6.2-8.2) g/dL Albumin (3.5-5.0) g/dL Urine Appearance (Clear) Urine Protein (Negative) Urine Blood (Negative) Ur Leukocyte Esterase (Negative) Urine RBC (0-5) /hpf Urine WBC (0-5) /hpf Urine WBC Clumps (None) /hpf Ur Squamous Epith Cells (0-4) /hpf Amorphous Sediment (None) /hpf Urine Bacteria (None) /hpf Urine Mucus (None) /hpf Rheumatoid Factor 27 H (0-15) IU/mL 06/30/23 07/01/23 07/01/23 Range/Units 18:45 09:32 09:32 WBC 16.1 H (3.8-10.6) k/uL RBC 2.87 L (3.80-5.40) m/uL Hgb 7.8 L (11.4-16.0) gm/dL Hct 25.0 L (34.0-46.0) % Plt Count 561 H (150-450) k/uL Neutrophils # 13.6 H (1.3-7.7) k/uL ESR (0-30) mm/Hr Sodium 134 L (137-145) mmol/L Carbon Dioxide 18 L (22-30) mmol/L BUN 72 H (7-17) mg/dL Creatinine 8.13 H* (0.52-1.04) mg/dL Glucose 123 H (74-99) mg/dL Uric Acid (3.7-7.4) mg/dL Calcium 7.9 L (8.4-10.2) mg/dL C-Reactive Protein (<1.0) mg/dL Total Protein 5.0 L (6.3-8.2) g/dL Total Protein (PEP) (6.2-8.2) g/dL Albumin 2.3 L (3.5-5.0) g/dL Urine Appearance Cloudy H (Clear) Urine Protein 1+ H (Negative) Urine Blood Moderate H (Negative) Ur Leukocyte Esterase Small H (Negative) Urine RBC 75 H (0-5) /hpf Urine WBC 11 H (0-5) /hpf Urine WBC Clumps Rare H (None) /hpf Ur Squamous Epith Cells 7 H (0-4) /hpf Amorphous Sediment Rare H (None) /hpf Urine Bacteria Occasional H (None) /hpf Urine Mucus Rare H (None) /hpf Rheumatoid Factor (0-15) IU/mL Microbiology - Last 24 Hours (Table) 06/29/23 18:07 Urine Culture - Final Urine,Clean Catch 06/29/23 22:25 Blood Culture - Preliminary Blood Assessment and Plan Assessment: 1. Muscle aches and fatigue likely secondary from acute renal failure 2. Acute renal failure 3. Leukocytosis likely secondary from UTI. Urine and blood cultures ordered 3. History of COPD DVT prophylaxis heparin. GI prophylaxis Protonix Nephrology service is consulted Blood and urine cultures ordered Patient started on IV Rocephin Repeat labs ordered
[2023-07-01 18:49] LABS: Albumin 2.46 g/dL (3.80-4.90); Gamma Globulin 0.79 g/dL (0.70-1.50)
--- NOTE | 2023-07-02 02:09 | XR ---
EXAM: XR chest 1V portable CLINICAL INDICATION:Female, 62 years old with history of line confirmation; [facility] COMPARISON: 06/29/2023 TECHNIQUE: Chest single view. FINDINGS: Lines/tubes/devices: Interval placement of a dual lumen dialysis catheter on the right entering IJ ap proach with the catheter tip over the mid SVC in good position. EKG leads overlie the chest. Cardiomediastinal silhouette is unchanged. Heart size upper normal. Minor atherosclerotic calcificati ons of the aorta. Lungs and pleural spaces are stable. No evidence of pneumothorax. Mild hyperinflation again noted. Osseous structures are unchanged. Mild degenerative changes without evidence of acute fracture. IMPRESSION: Interval placement of a dual lumen dialysis catheter on the right entering IJ approach with the enrrique ter tip over the mid SVC in good position. No pneumothorax.
[2023-07-02 09:09] LABS: Glucose,Whole Blood 94 mg/dL (70-110)
[2023-07-02] MEDS: PROCHLORPERAZINE INJ 10 MG/2 ML VIAL IVP PRN (10:06)
--- NOTE | 2023-07-02 10:23 | P.PN ---
Subjective Progress Note Date: 07/02/23 this is a 62-year-old female patient of Dr. Daniels who presented with complaints ofmuscle weakness and fatigue has been occurring over the past month patient reports she's had trouble completing her ADLs because of this muscle fatigue. Patient denies significant medical history except for mild COPD. Patient denies any recent illness or infection. Patient denies any change in medication. Patient denies changed diet.chest x-ray completed showing no acute cardiopulmonary disease. Renal ultrasound completed showing no evidence of hydronephrosis or shadowing calculus. labwork revealing WBC of 18.7, hemoglobin 8.4, creatinine 7.02, bun 73. UA showing small amount of leukocyte Estrace. This time blood and urine cultures will be ordered. Patient started on IV Rocephin. Patient started normal saline. Nephrology services have been consulted. repeat labs ordered On 07/01/2023 patient was seen and examined on the medical floor she is alert and oriented 3 in no apparent distress she is complaining of generalized pain and weakness otherwise she denies any complaints, she is receiving her first session of hemodialysis, there is no fever or chills no headache or dizziness no chest pain no shortness of breath no cough no nausea or vomiting no abdominal pain no diarrhea and no urinary symptoms. On 07/02/2023 patient is alert and oriented 3. Patient still complaining of significant body aches with nausea. Patient currently getting second round of hemodialysis. She reports rash possible bites and lower extremities will consult infectious disease services. lyme disease lab work ordered. Nephrology services ordering for kidney biopsy.Current vital signs temp 90.1, heart rate 78, respiratory rate 16, blood pressure 131/67 with a pulse ox 92% on room air Objective - Vital Signs Vital signs: Vital Signs Temp 98.1 F 07/02/23 08:15 Pulse 78 07/02/23 08:15 Resp 16 07/02/23 08:15 BP 131/67 07/02/23 08:15 Pulse Ox 92 L 07/02/23 08:15 FiO2 Intake & Output 07/01/23 07/02/23 07/02/23 18:59 06:59 18:59 Intake Total 168 220 Balance 168 220 Weight 71.3 kg Intake: IV 50 Oral 118 220 Other: Voiding Method Toilet Toilet Toilet # Voids 1 - Labs CBC & Chem 7: 07/01/23 09:32 07/01/23 09:32 Labs: Abnormal Lab Results - Last 24 Hours (Table) 06/30/23 07/01/23 07/01/23 Range/Units 11:48 09:32 09:32 WBC 16.1 H (3.8-10.6) k/uL RBC 2.87 L (3.80-5.40) m/uL Hgb 7.8 L (11.4-16.0) gm/dL Hct 25.0 L (34.0-46.0) % Plt Count 561 H (150-450) k/uL Neutrophils # 13.6 H (1.3-7.7) k/uL Sodium 134 L (137-145) mmol/L Carbon Dioxide 18 L (22-30) mmol/L BUN 72 H (7-17) mg/dL Creatinine 8.13 H* (0.52-1.04) mg/dL Glucose 123 H (74-99) mg/dL Calcium 7.9 L (8.4-10.2) mg/dL Total Protein 5.0 L (6.3-8.2) g/dL Total Protein (PEP) 6.1 L (6.2-8.2) g/dL Albumin 2.3 L (3.5-5.0) g/dL Albumin (PEP) 2.46 L (3.80-4.90) g/dL Hzcta-[id number] 0.80 H (0.10-0.40) g/dL Tbckk-1-Plowcrwhn 1.05 H (0.60-1.00) g/dL Microbiology - Last 24 Hours (Table) 06/29/23 22:25 Blood Culture - Preliminary Blood 06/29/23 18:07 Urine Culture - Final Urine,Clean Catch Assessment and Plan Assessment: 1. Muscle aches and fatigue likely secondary from acute renal failure 2. Acute renal failure. 3. Leukocytosis likely secondary from UTI. Urine and blood cultures ordered 3. History of COPD DVT prophylaxis heparin. GI prophylaxis Protonix Nephrology service is consulted Blood and urine cultures ordered Patient started on IV Rocephin Infectious disease service is following Patient started on hemodialysis Further lab work ordered Repeat labs ordered
[2023-07-02] MEDS ORDERED: DESMOPRESSIN ACETATE 18 MCG in SODIUM CHLORIDE 0.9% 50 ML IVPB ONE (10:25)
[2023-07-02 10:27] LABS: African American GFR (CKD) 9 (>60 ml/min/1.73 sqM); Anion Gap 8 mmol/L; Blood Urea Nitrogen 48 mg/dL (7-17); Calcium 7.9 mg/dL (8.4-10.2); Carbon Dioxide 31 mmol/L (22-30); Chloride 95 mmol/L (98-107); Glucose 87 mg/dL (74-99); Magnesium 1.9 mg/dL (1.6-2.3); Non-African American GFR(CKD) 8 (>60 ml/min/1.73 sqM); Phosphorus 6.1 mg/dL (2.5-4.5); Potassium 4.3 mmol/L (3.5-5.1); Sodium 134 mmol/L (137-145)
--- NOTE | 2023-07-02 10:27 | P.PN ---
Subjective Patient is seen in follow-up for acute kidney injury. Started on hemodialysis July 01, 2023. Tolerating dialysis well. Has been voiding. On IV fluids. Continues to have intermittent nausea and vomiting. Vital signs are stable. General: No acute distress. HEENT: Head exam is unremarkable. LUNGS: No audible rhonchi or wheezes. HEART: Rate and Rhythm are regular. ABDOMEN: Nontender. EXTREMITITES: No edema. Objective - Vital Signs Vital signs: Vital Signs Temp 98.1 F 07/02/23 08:15 Pulse 78 07/02/23 08:15 Resp 16 07/02/23 08:15 BP 131/67 07/02/23 08:15 Pulse Ox 92 L 07/02/23 08:15 FiO2 Intake & Output 07/01/23 07/02/23 07/02/23 18:59 06:59 18:59 Intake Total 168 220 Balance 168 220 Weight 71.3 kg Intake: IV 50 Oral 118 220 Other: Voiding Method Toilet Toilet Toilet # Voids 1 - Labs CBC & Chem 7: 07/01/23 09:32 07/01/23 09:32 Labs: Abnormal Lab Results - Last 24 Hours (Table) 06/30/23 07/01/23 07/01/23 Range/Units 11:48 09:32 09:32 WBC 16.1 H (3.8-10.6) k/uL RBC 2.87 L (3.80-5.40) m/uL Hgb 7.8 L (11.4-16.0) gm/dL Hct 25.0 L (34.0-46.0) % Plt Count 561 H (150-450) k/uL Neutrophils # 13.6 H (1.3-7.7) k/uL Sodium 134 L (137-145) mmol/L Carbon Dioxide 18 L (22-30) mmol/L BUN 72 H (7-17) mg/dL Creatinine 8.13 H* (0.52-1.04) mg/dL Glucose 123 H (74-99) mg/dL Calcium 7.9 L (8.4-10.2) mg/dL Total Protein 5.0 L (6.3-8.2) g/dL Total Protein (PEP) 6.1 L (6.2-8.2) g/dL Albumin 2.3 L (3.5-5.0) g/dL Albumin (PEP) 2.46 L (3.80-4.90) g/dL Gekkv-6-Hkxpxxoqv 0.80 H (0.10-0.40) g/dL Vwojt-1-Gappjwjhy 1.05 H (0.60-1.00) g/dL Microbiology - Last 24 Hours (Table) 06/29/23 22:25 Blood Culture - Preliminary Blood 06/29/23 18:07 Urine Culture - Final Urine,Clean Catch Assessment and Plan Plan: Assessment: 1. Acute kidney injury secondary to ATN. Rule out GN. No hydronephrosis noted on kidney ultrasound. Creatinine 8.13 dated July 01, 2023. Creatinine 0.8 in January 2023. UA does show 1+ protein and RBCs as well as RBC casts. Repeat UA shows protein and blood as well. UPC 1.44 g. Started on hemodialysis July 01, 2023. Has permacath. 2. Metabolic acidosis secondary to acute kidney injury. On bicarb drip. 3. Anemia. Iron deficiency noted. Plan: Currently seen while undergoing hemodialysis. Third treatment tomorrow. Change IV fluids to normal saline. Follow-up serologies. Negative so far. ANCA titers pending. Maintain IV iron. Avoid nephrotoxins. Continue to monitor renal function and urine output. Kidney biopsy scheduled for Wednesday. To receive IV DDAVP prior to biopsy. Erythematous scabs noted on lower extremities. Will see if these can be biopsied as well.
[2023-07-02 11:15] LABS: Glucose,Whole Blood 97 mg/dL (70-110)
[2023-07-02] MEDS: SODIUM CHLORIDE 0.9% 1,000 ML IV SCH (13:02)
[2023-07-02 13:18] LABS: Basophils # (A) 0.1 k/uL (0-0.2); Basophils % (A) 1 %; Eosinophils # (A) 0.6 k/uL (0-0.7); Eosinophils % (A) 4 %; HCT 26.7 % (34.0-46.0); HGB 8.3 gm/dL (11.4-16.0); Hypochromasia Moderate; Lymphocytes # (A) 1.7 k/uL (1.0-4.8); Lymphocytes % (A) 12 %; MCH 27.4 pg (25.0-35.0); MCHC 31.2 g/dL (31.0-37.0); MCV 87.9 fL (80.0-100.0); Mean Platelet Volume 8.6; Monocytes # (A) 0.7 k/uL (0-1.0); Monocytes % (A) 5 %; Neutrophils # (A) 10.8 k/uL (1.3-7.7); Neutrophils % (A) 77 %; Platelet Count 533 k/uL (150-450); RBC 3.04 m/uL (3.80-5.40); RDW 14.9 % (11.5-15.5)
--- NOTE | 2023-07-02 14:13 | XR ---
EXAMINATION TYPE: XR chest 1V DATE OF EXAM: 07/02/2023 1:42 PM CLINICAL INDICATION:Female, 62 years old with history of shortness of breath; [facility] COMPARISON: Chest radiographs from yesterday. TECHNIQUE: XR chest 1V Frontal view of the chest. FINDINGS: Lungs/Pleura: There is no evidence of pleural effusion, focal consolidation, or pneumothorax. Pulmonary vascularity: Unremarkable. Heart/mediastinum: Cardiomediastinal silhouette is unremarkable. Musculoskeletal: No acute osseous pathology. Other findings: None Lines/Tubes: Right internal jugular central venous dual-lumen catheter with distal tip at the cavoatrial junction. IMPRESSION: No acute cardiopulmonary disease/process.
--- NOTE | 2023-07-02 14:43 | P.GSCN ---
History of Present Illness Consult date: 07/02/23 History of present illness: CHIEF COMPLAINT: Weakness and muscle pain HISTORY OF PRESENT ILLNESS: This is a 62-year-old female who presented with weakness, muscle pain and fatigue. Patient has skin lesions noted on both feet bilaterally more so on the left. She also was found to have acute kidney injury and required to be started on hemodialysis during this admission. She is scheduled for kidney biopsy on Wednesday. There are concerns for possible vasculitis. Surgical service has been consulted for skin biopsy. Patient is being started on high-dose IV steroids for possible vasculitis. Patient also having worsening shortness of breath and did require to be placed on oxygen. Pulmonary is now on consult. Patient reports most of her pain is in the right upper thigh. PAST MEDICAL HISTORY: See below PAST SURGICAL HISTORY: See below MEDICATIONS: See below ALLERGIES: See below SOCIAL HISTORY: No illicit drug use. REVIEW OF SYSTEMS: CONSTITUTIONAL: Denies fever or chills. HEENT: Denies blurred vision, vision changes, or eye pain. Denies hemoptysis CARDIOVASCULAR: Denies chest pain or pressure. RESPIRATORY: No shortness of breath. GASTROINTESTINAL: See HPI for pertinent findings HEMATOLOGIC: Denies bleeding disorders. GENITOURINARY: Denies any blood in urine or increased urinary frequency. SKIN: Denies pruitis. Denies rash. PHYSICAL EXAM: VITAL SIGNS: Reviewed GENERAL: no acute distress. ABDOMEN: Soft. Nondistended. Nontender NEUROLOGIC: Alert and oriented. Cranial nerves II through XII grossly intact. SKIN: Dark circular skin lesions noted on both feet bilaterally more so on the left LABORATORY DATA: WBC 14 Hgb 8.3 platelets 533 Sodium 134 potassium 4.3 creatinine as high as 8 now 5.62 IMAGING: Chest x-ray no acute cardiopulmonary disease ASSESSMENT: 1. Muscle weakness, muscle pain and fatigue skin lesions noted on bilateral feet. Concerns for vasculitis 2. Acute kidney injury requiring to be started on hemodialysis PLAN: -Patient scheduled for skin biopsy of left foot skin lesions with Dr. Reyna on Wednesday to evaluate for possible vasculitis -Agree with starting IV steroids Physician Waste Elimination note has been reviewed by physician. Signing provider agrees with the documented findings, assessment, and plan of care. Past Medical History Past Medical History: COPD History of Any Multi-Drug Resistant Organisms: None Reported Past Psychological History: No Psychological Hx Reported Smoking Status: Former smoker Medications and Allergies Home Medications Medication Instructions Recorded Confirmed Type Albuterol Sulfate [Ventolin HFA] 2 puff INHALATION RT-Q6H PRN 06/29/23 06/29/23 History Cholecalciferol [Vitamin D3 (25 25 mcg PO DAILY 06/29/23 06/29/23 History Mcg = 1000 Iu)] Cyanocobalamin (Vitamin B-12) 1,000 mcg PO DAILY 06/29/23 06/29/23 History [Vitamin B-12] Fluticasone/Umeclidin/Vilanter 1 puff INHALATION RT-DAILY 06/29/23 06/29/23 History [Trelegy Ellipta 200-62.5-25] Multivit-Min/FA/Lycopen/Lutein 1 tab PO DAILY 06/29/23 06/29/23 History [Centrum Silver Tablet] Allergies Allergy/AdvReac Type Severity Reaction Status Date / Time No Known Allergies Allergy Verified 06/29/23 14:45 Surgical - Exam Vital Signs Temp Pulse Resp BP Pulse Ox 97.7 F 84 16 126/73 99 06/29/23 12:32 06/29/23 12:32 06/29/23 12:32 06/29/23 12:32 06/29/23 12:32 Results - Labs 07/02/23 08:48 07/02/23 08:48 Abnormal Lab Results - Last 24 Hours (Table) 06/30/23 06/30/23 07/02/23 Range/Units 11:48 11:48 08:48 WBC (3.8-10.6) k/uL RBC (3.80-5.40) m/uL Hgb (11.4-16.0) gm/dL Hct (34.0-46.0) % Plt Count (150-450) k/uL Neutrophils # (1.3-7.7) k/uL Sodium 134 L (137-145) mmol/L Chloride 95 L (98-107) mmol/L Carbon Dioxide 31 H (22-30) mmol/L BUN 48 H (7-17) mg/dL Creatinine 5.62 H (0.52-1.04) mg/dL Calcium 7.9 L (8.4-10.2) mg/dL Phosphorus 6.1 H (2.5-4.5) mg/dL Total Protein (PEP) 6.1 L (6.2-8.2) g/dL Albumin (PEP) 2.46 L (3.80-4.90) g/dL Nwalx-1-Fplsqdhkn 0.80 H (0.10-0.40) g/dL Waata-3-Uccvriafq 1.05 H (0.60-1.00) g/dL c-ANCA 1:80 A (<1:20) Titer 07/02/23 Range/Units 08:48 WBC 14.0 H (3.8-10.6) k/uL RBC 3.04 L (3.80-5.40) m/uL Hgb 8.3 L (11.4-16.0) gm/dL Hct 26.7 L (34.0-46.0) % Plt Count 533 H (150-450) k/uL Neutrophils # 10.8 H (1.3-7.7) k/uL Sodium (137-145) mmol/L Chloride (98-107) mmol/L Carbon Dioxide (22-30) mmol/L BUN (7-17) mg/dL Creatinine (0.52-1.04) mg/dL Calcium (8.4-10.2) mg/dL Phosphorus (2.5-4.5) mg/dL Total Protein (PEP) (6.2-8.2) g/dL Albumin (PEP) (3.80-4.90) g/dL Ectqv-6-Klzrsizdj (0.10-0.40) g/dL Jauli-5-Iyqcliczn (0.60-1.00) g/dL c-ANCA (<1:20) Titer Microbiology - Last 24 Hours (Table) 06/29/23 22:25 Blood Culture - Preliminary Blood 06/29/23 18:07 Urine Culture - Final Urine,Clean Catch Diabetes panel 07/02/23 Range/Units 08:48 Sodium 134 L (137-145) mmol/L Potassium 4.3 (3.5-5.1) mmol/L Chloride 95 L (98-107) mmol/L Carbon Dioxide 31 H (22-30) mmol/L BUN 48 H (7-17) mg/dL Creatinine 5.62 H (0.52-1.04) mg/dL Glucose 87 (74-99) mg/dL Calcium 7.9 L (8.4-10.2) mg/dL Calcium panel 07/02/23 Range/Units 08:48 Calcium 7.9 L (8.4-10.2) mg/dL Phosphorus 6.1 H (2.5-4.5) mg/dL Pituitary panel 07/02/23 Range/Units 08:48 Sodium 134 L (137-145) mmol/L Potassium 4.3 (3.5-5.1) mmol/L Chloride 95 L (98-107) mmol/L Carbon Dioxide 31 H (22-30) mmol/L BUN 48 H (7-17) mg/dL Creatinine 5.62 H (0.52-1.04) mg/dL Glucose 87 (74-99) mg/dL Calcium 7.9 L (8.4-10.2) mg/dL Adrenal panel 07/02/23 Range/Units 08:48 Sodium 134 L (137-145) mmol/L Potassium 4.3 (3.5-5.1) mmol/L Chloride 95 L (98-107) mmol/L Carbon Dioxide 31 H (22-30) mmol/L BUN 48 H (7-17) mg/dL Creatinine 5.62 H (0.52-1.04) mg/dL Glucose 87 (74-99) mg/dL Calcium 7.9 L (8.4-10.2) mg/dL
--- NOTE | 2023-07-02 15:20 | CT ---
EXAMINATION TYPE: CT abdomen pelvis wo con CT DLP: 490 mGycm, Automated exposure control for dose reduction was used. DATE OF EXAM: 07/02/2023 2:50 PM COMPARISON: CT abdomen pelvis most recent from CLINICAL INDICATION:Female, 62 years old with history of Nausea, vomiting, LLQ pain; nausea, vomiting and left lower quadrant pain. TECHNIQUE: Axial CT abdomen pelvis wo con;Sagittal and coronal reformats were created on a separate workstation. Contrast used: mL of , (none if empty) Oral contrast used: without Oral Contrast (none if empty) FINDINGS: LOWER CHEST: Small right pleural effusion with small volume of associated atelectasis. ABDOMEN LIVER: Unremarkable GALLBLADDER AND BILE DUCTS: Unremarkable. PANCREAS: Unremarkable. SPLEEN: Unremarkable. ADRENAL GLANDS: Unremarkable. KIDNEYS AND URETERS: No evidence of hydronephrosis or renal calculus. The ureters are unremarkable. PELVIS BLADDER: Unremarkable REPRODUCTIVE: Unremarkable. ABDOMEN & PELVIS STOMACH AND BOWEL: Stomach and duodenum are unremarkable. Diverticulosis of sigmoid colon, but no div erticulitis appreciated. No evidence of bowel obstruction. PERITONEUM/RETROPERITONEUM: No evidence of pneumoperitoneum or free fluid. VASCULATURE: No evidence of aortic aneurysm. MUSCULOSKELETAL: No acute osseous abnormalities LYMPH NODES: No gross evidence for lymphadenopathy. SOFT TISSUE/ABDOMINAL WALL: Unremarkable IMPRESSION: 1. Small right pleural effusion and small volume of associated atelectasis. 2. Diverticulosis of sigmoid colon, but no diverticulitis appreciated.
[2023-07-02] MEDS ORDERED: DEXTROSE 50% SYRINGE 50 ML IVP PRN ×2 (15:40)
--- NOTE | 2023-07-02 16:21 | P.CNPUL ---
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 Has been maintained on Trelegy and albuterol. She presented here to the emergency room on 06/29/2023 with a 1 month history of progressive weakness and body aches and pains. She had developed poor appetite and was not eating or drinking much she was having issues with vomiting. Initial labs revealed a white count of 18.7. Hemoglobin 9.3. Platelets 665. Sodium 136. Potassium 4.9. Bicarb 18. BUN 73 and a creatinine of 7.02. Glucose 105. Urinalysis was cloudy with moderate blood and high RBCs. Renal ultrasound revealed no significant hydronephrosis. Been seen by nephrology who felt her acute kidney injury was secondary to acute tubular necrosis. There were in the process of ruling out glomerulonephritis. The plan is for kidney biopsy on 07/05/2023. She did have a double-lumen hemodialysis catheter placed in the right internal jugular. He was initiated on hemodialysis yesterday. Work today reveals a white count of 14.0. Hemoglobin 8.3. Platelets 533. Sodium 134. Potassium 4.3. Bicarb 31. BUN 48. Creatinine 5.62. She was found to have a positive C ANCA of 1:80 ratio and high rheumatoid factor of 27. Developed increasing shortness of breath today and we are consulted. She is seen on the regular medical floor. She is currently resting in bed. Awake and alert in no acute distress. She is maintaining O2 saturations in the 90s on room air. He is still having 9 body aches and pains. Urine culture revealed no growth. Blood cultures revealed no growth. Been initiated on Symbicort 80, Ventolin HFA every 6 as needed. She is on ceftriaxone. She is on desmopressin. Receiving iron supplements. Heparin for DVT prophylaxis. She will get methylprednisone 1 g IV piggyback daily for 3 da ys. Chest x-ray reveals no acute cardiopulmonary process. CT scan of the abdomen reveals a small right pleural effusion and small volume of associated atelectasis. Diverticulosis of the sigmoid colon but no diverticulitis. Review of Systems REVIEW OF SYSTEMS: CONSTITUTIONAL: Stated for generalized body aches and pains. Nausea and vomiting. Denies any recent significant weight loss or weight gain. EYES: Denies change in vision. EARS, NOSE, MOUTH, THROAT: Denies headaches, denies sore throat. CARDIOVASCULAR: Denies chest pain, palpitations or syncopal episodes. RESPIRATORY: Positive for shortness of breath, cough, congestion no hemoptysis. GASTROINTESTINAL: Denies change in appetite, denies abdominal pain GENITOURINARY: Denies hematuria, denies infections. MUSKULOSKELETAL: Generalized body aches and pains. INTEGUMENTARY: Denies rash, denies eczema. NEUROLOGICAL: Denies recent memory loss, no recent seizure activity. PSYCHIATRIC: Denies anxiety, denies depression. HEMATOLOGIC/LYMPHATIC: Denies anemia, denies enlarged lymph nodes. Past Medical History Past Medical History: COPD History of Any Multi-Drug Resistant Organisms: None Reported Past Psychological History: No Psychological Hx Reported Smoking Status: Former smoker Medications and Allergies Home Medications Medication Instructions Recorded Confirmed Type Albuterol Sulfate [Ventolin HFA] 2 puff INHALATION RT-Q6H PRN 06/29/23 06/29/23 History Cholecalciferol [Vitamin D3 (25 25 mcg PO DAILY 06/29/23 06/29/23 History Mcg = 1000 Iu)] Cyanocobalamin (Vitamin B-12) 1,000 mcg PO DAILY 06/29/23 06/29/23 History [Vitamin B-12] Fluticasone/Umeclidin/Vilanter 1 puff INHALATION RT-DAILY 06/29/23 06/29/23 History [Trelegy Ellipta 200-62.5-25] Multivit-Min/FA/Lycopen/Lutein 1 tab PO DAILY 06/29/23 06/29/23 History [Centrum Silver Tablet] Allergies Allergy/AdvReac Type Severity Reaction Status Date / Time No Known Allergies Allergy Verified 06/29/23 14:45 Physical Exam Vitals: Vital Signs Temp Pulse Resp BP Pulse Ox 07/02/23 14:51 97.9 F 80 16 129/69 07/02/23 12:00 68 18 128/78 92 L 07/02/23 08:15 98.1 F 78 16 131/67 92 L 07/02/23 04:00 70 16 119/68 94 L 07/02/23 00:00 97.5 F L 74 16 128/71 95 07/01/23 20:00 97.8 F 70 16 120/69 94 L Intake and Output 07/02/23 07/02/23 07/02/23 06:59 14:59 22:59 Intake Total 500 Output Total 500 Balance 0 Intake: Oral 0 Hemodialysis 500 Output: Hemodialysis 500 Other: Voiding Method Toilet Toilet # Voids 1 Weight 71.3 kg GENERAL EXAM: Alert, pleasant 62-year-old female, on room air, continues with generalized aches and pains. HEAD: Normocephalic. EYES: Normal reaction of pupils, equal size. NOSE: Clear with pink turbinates. THROAT: No erythema or exudates. NECK: No masses, no JVD. CHEST: No chest wall deformity. LUNGS: Equal air entry with no crackles, wheeze, rhonchi or dullness. Diminished. CVS: S1 and S2 normal with no audible murmur, regular rhythm. ABDOMEN: No hepatosplenomegaly, normal bowel sounds, no guarding or rigidity. SPINE: No scoliosis or deformity SKIN: No rashes CENTRAL NERVOUS SYSTEM: No focal deficits, tone is normal in all 4 extremities. EXTREMITIES: There is no peripheral edema. No clubbing, no cyanosis. Peripheral pulses are intact. Results - Laboratory Findings CBC and BMP: 07/02/23 08:48 07/02/23 08:48 PT/INR, D-dimer PT 12.3 sec (10.0-12.5) 07/01/23 11:50 INR 1.1 (<1.2) 07/01/23 11:50 Abnormal lab findings: Abnormal Labs 06/29/23 06/29/23 06/29/23 12:39 12:39 14:31 WBC 18.7 H RBC 3.41 L Hgb 9.3 L Hct 29.4 L Plt Count 665 H Neutrophils # 16.0 H ESR Sodium 136 L Chloride Carbon Dioxide 18 L BUN 73 H Creatinine 7.02 H* Glucose 105 H Uric Acid Calcium Phosphorus Iron TIBC % Saturation Transferrin Ferritin Creatine Kinase 24 L C-Reactive Protein Total Protein 5.6 L Total Protein (PEP) Albumin 2.6 L Albumin (PEP) Skolb-5-Smcneycth Fznrp-6-Wfazmhzoe Urine Appearance Urine Protein Urine Blood Ur Leukocyte Esterase Urine RBC Urine WBC Urine WBC Clumps Ur Squamous Epith Cells Amorphous Sediment Urine Bacteria Urine Mucus Rheumatoid Factor c-ANCA 06/29/23 06/30/23 06/30/23 18:07 07:18 07:18 WBC 15.3 H RBC 3.05 L Hgb 8.4 L Hct 26.5 L Plt Count 589 H Neutrophils # 12.2 H ESR Sodium Chloride 112 H Carbon Dioxide 15 L BUN 75 H Creatinine 7.41 H* Glucose Uric Acid Calcium 7.8 L Phosphorus Iron TIBC % Saturation Transferrin Ferritin Creatine Kinase C-Reactive Protein Total Protein 4.9 L Total Protein (PEP) Albumin 2.2 L Albumin (PEP) Bezwn-4-Xilzehkqj Ytewu-7-Dzlmbgdls Urine Appearance Cloudy H Urine Protein 1+ H Urine Blood Moderate H Ur Leukocyte Esterase Small H Urine RBC 126 H Urine WBC 13 H Urine WBC Clumps Ur Squamous Epith Cells Amorphous Sediment Rare H Urine Bacteria Urine Mucus Rare H Rheumatoid Factor c-ANCA 06/30/23 06/30/23 06/30/23 07:18 11:48 11:48 WBC RBC Hgb Hct Plt Count Neutrophils # ESR Sodium Chloride Carbon Dioxide BUN Creatinine Glucose Uric Acid Calcium Phosphorus Iron 7 L TIBC 181 L % Saturation 3.87 L Transferrin 129.0 L Ferritin 995.0 H Creatine Kinase C-Reactive Protein Total Protein Total Protein (PEP) 6.1 L Albumin Albumin (PEP) 2.46 L Nromu-2-Bubrqnnks 0.80 H Qiveb-2-Mjvfkwlve 1.05 H Urine Appearance Urine Protein Urine Blood Ur Leukocyte Esterase Urine RBC Urine WBC Urine WBC Clumps Ur Squamous Epith Cells Amorphous Sediment Urine Bacteria Urine Mucus Rheumatoid Factor c-ANCA 1:80 A 06/30/23 06/30/23 06/30/23 16:00 16:00 18:45 WBC RBC Hgb Hct Plt Count Neutrophils # ESR 48 H Sodium Chloride Carbon Dioxide BUN Creatinine Glucose Uric Acid 8.4 H Calcium Phosphorus Iron TIBC % Saturation Transferrin Ferritin Creatine Kinase C-Reactive Protein 19.8 H Total Protein Total Protein (PEP) Albumin Albumin (PEP) Zkssw-3-Ecimudxes Uvzpk-4-Eoyjkbnho Urine Appearance Cloudy H Urine Protein 1+ H Urine Blood Moderate H Ur Leukocyte Esterase Small H Urine RBC 75 H Urine WBC 11 H Urine WBC Clumps Rare H Ur Squamous Epith Cells 7 H Amorphous Sediment Rare H Urine Bacteria Occasional H Urine Mucus Rare H Rheumatoid Factor 27 H c-ANCA 07/01/23 07/01/23 07/02/23 09:32 09:32 08:48 WBC 16.1 H RBC 2.87 L Hgb 7.8 L Hct 25.0 L Plt Count 561 H Neutrophils # 13.6 H ESR Sodium 134 L 134 L Chloride 95 L Carbon Dioxide 18 L 31 H BUN 72 H 48 H Creatinine 8.13 H* 5.62 H Glucose 123 H Uric Acid Calcium 7.9 L 7.9 L Phosphorus 6.1 H Iron TIBC % Saturation Transferrin Ferritin Creatine Kinase C-Reactive Protein Total Protein 5.0 L Total Protein (PEP) Albumin 2.3 L Albumin (PEP) Iffxq-8-Aqvpkgnpk Bkdwr-9-Iuwygozkk Urine Appearance Urine Protein Urine Blood Ur Leukocyte Esterase Urine RBC Urine WBC Urine WBC Clumps Ur Squamous Epith Cells Amorphous Sediment Urine Bacteria Urine Mucus Rheumatoid Factor c-ANCA 07/02/23 08:48 WBC 14.0 H RBC 3.04 L Hgb 8.3 L Hct 26.7 L Plt Count 533 H Neutrophils # 10.8 H ESR Sodium Chloride Carbon Dioxide BUN Creatinine Glucose Uric Acid Calcium Phosphorus Iron TIBC % Saturation Transferrin Ferritin Creatine Kinase C-Reactive Protein Total Protein Total Protein (PEP) Albumin Albumin (PEP) Ikoqs-7-Ghnuxornr Aqydk-0-Rdvxyrain Urine Appearance Urine Protein Urine Blood Ur Leukocyte Esterase Urine RBC Urine WBC Urine WBC Clumps Ur Squamous Epith Cells Amorphous Sediment Urine Bacteria Urine Mucus Rheumatoid Factor c-ANCA - Diagnostic Findings Chest x-ray: image reviewed Assessment and Plan Assessment: Generalized weakness with associated nausea and vomiting for several days with poor appetite and poor oral intake Acute kidney injury presenting creatinine of 7.02 requiring renal replacement therapy 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 Plan is for kidney biopsy Chronic obstructive pulmonary disease Chronic tobacco dependence Plan: The patient was seen and evaluated Chest x-ray, labs and medications reviewed CT scan, renal ultrasound reviewed Currently stable and on room air To receive Solu-Medrol 1 g daily for 3 days Increase Symbicort to 160-4.5 Add DuoNeb inhalations 4 times daily and as needed Heparin for DVT prophylaxis Currently on ceftriaxone Currently on desmopressin Plan is for kidney biopsy on 07/05/2023 We will continue to follow and make further recommendations based on her clinical status I have personally seen and examined the patient, performed the documentation and the assessment and plan as written. Number of minutes spent on the visit: 20.
[2023-07-02] MEDS ORDERED: IPRATROPIUM-ALBUTEROL 3 ML NEB INHALATION PRN (16:23)
[2023-07-02 16:24] LABS: Glucose,Whole Blood 116 mg/dL (70-110)
[2023-07-02] MEDS: INSULIN ASPART (NovoLOG) 100 UNIT/ML VIAL SQ SCH (16:58)
[2023-07-02] MEDS: methylPREDNISolone SOD SUCCI 40 MG/ML 1 ML VIAL IV SCH (17:02)
[2023-07-02] MEDS: methylPREDNISolone SOD SUCCIN 1,000 MG in SODIUM CHLORIDE 0.9% 250 ML IVPB SCH (17:57)
[2023-07-02 19:54] LABS: Glucose,Whole Blood 105 mg/dL (70-110)
[2023-07-02] MEDS: IPRATROPIUM-ALBUTEROL 3 ML NEB INHALATION SCH (21:46)
[2023-07-02] MEDS: SYMBICORT 160-4.5 MCG INHALER INHALATION SCH (21:46)
--- NOTE | 2023-07-02 22:50 | P.CONS ---
History of Present Illness - Reason for Consult Consult date: 07/02/23 Rash, sudden renal failure Requesting physician: Franklin Marrero - Chief Complaint Fatigue and muscle aches x few days - History of Present Illness Patient is a 62-year-old female past medical history significant for COPD presenting to the hospital 3 days ago for evaluation of muscle weakness and fatigue symptom has been going on for about a month and apparently has been treated with a course of oral Cipro and steroid by her primary care physician for sinus infection patient also mentioned developing rash to the lower extremity denies any itching or pain associated with it. Denies having any joint swelling or any erythema, did have some headache but no URI symptoms no chest pain some shortness of breath and cough which is chronic for her lower nausea no vomiting no abdominal nausea and pain no diarrhea no constipation no urinary symptoms patient on presentation to the hospital was afebrile and no fever have recorded subsequently patient was not tachycardic hypotensive or hypoxic patient did have a white count of 15.7 down to 14,000 today did have el evated bili creatinine liver enzymes are normal CRP 19.8 urine has been mildly positive patient did have a positive rheumatoid factor KATIE screen was positive rest of the rheumatological workup was negative hepatitis panel was negative blood and urine culture has been negative chest x-ray with no acute cardiopulmonary process, infectious was consulted today regarding the rash and acute renal failure with a question of possible infectious etiology Review of Systems Positive point and negatives has been mentioned in the HPI, complete review of systems was performed and all other systems are negative Past Medical History Past Medical History: COPD History of Any Multi-Drug Resistant Organisms: None Reported Past Psychological History: No Psychological Hx Reported Smoking Status: Former smoker Medications and Allergies Home Medications Medication Instructions Recorded Confirmed Type Albuterol Sulfate [Ventolin HFA] 2 puff INHALATION RT-Q6H PRN 06/29/23 06/29/23 History Cholecalciferol [Vitamin D3 (25 25 mcg PO DAILY 06/29/23 06/29/23 History Mcg = 1000 Iu)] Cyanocobalamin (Vitamin B-12) 1,000 mcg PO DAILY 06/29/23 06/29/23 History [Vitamin B-12] Fluticasone/Umeclidin/Vilanter 1 puff INHALATION RT-DAILY 06/29/23 06/29/23 History [Trelegy Ellipta 200-62.5-25] Multivit-Min/FA/Lycopen/Lutein 1 tab PO DAILY 06/29/23 06/29/23 History [Centrum Silver Tablet] Allergies Allergy/AdvReac Type Severity Reaction Status Date / Time No Known Allergies Allergy Verified 06/29/23 14:45 Physical Exam Vitals: Vital Signs Temp Pulse Resp BP Pulse Ox 07/02/23 08:15 98.1 F 78 16 131/67 92 L 07/02/23 04:00 70 16 119/68 94 L 07/02/23 00:00 97.5 F L 74 16 128/71 95 07/01/23 20:00 97.8 F 70 16 120/69 94 L 07/01/23 16:00 97.6 F 72 18 123/67 93 L 07/01/23 12:00 97.6 F 71 18 120/65 96 Intake and Output 07/01/23 07/02/23 07/02/23 22:59 06:59 14:59 Intake Total 220 0 Balance 220 0 Intake: Oral 220 0 Other: Voiding Method Toilet Toilet Toilet # Voids 1 Weight 71.3 kg GENERAL DESCRIPTION: Middle-aged female lying in bed, no distress. No tachypnea or accessory muscle of respiration use. HEENT: Shows Pallor , no scleral icterus. Oral mucous membrane is dry. No pharyngeal erythema or thrush NECK: Trachea central, no thyromegaly. LUNGS: Unlabored breathing. Decreased breath sound the base HEART: S1, S2, regular rate and rhythm. No loud murmur ABDOMEN: Soft, no tenderness , guarding or rigidity, no organomegaly EXTREMITIES: No edema of feet. SKIN: Mild petechial rash no masses palpable NEUROLOGICAL: The patient is awake, alert, oriented x3, mood and affect normal. Results CBC & Chem 7: 07/06/23 08:26 07/06/23 08:26 Labs: Abnormal Lab Results - Last 24 Hours (Table) 06/30/23 07/02/23 Range/Units 11:48 08:48 Sodium 134 L (137-145) mmol/L Chloride 95 L (98-107) mmol/L Carbon Dioxide 31 H (22-30) mmol/L BUN 48 H (7-17) mg/dL Creatinine 5.62 H (0.52-1.04) mg/dL Calcium 7.9 L (8.4-10.2) mg/dL Phosphorus 6.1 H (2.5-4.5) mg/dL Total Protein (PEP) 6.1 L (6.2-8.2) g/dL Albumin (PEP) 2.46 L (3.80-4.90) g/dL Sbokw-4-Adgpeddhj 0.80 H (0.10-0.40) g/dL Erunq-5-Sxgicorbi 1.05 H (0.60-1.00) g/dL Microbiology - Last 24 Hours (Table) 06/29/23 22:25 Blood Culture - Preliminary Blood 06/29/23 18:07 Urine Culture - Final Urine,Clean Catch Assessment and Plan (1) Leukocytosis Status: Acute Code(s): D72.829 - ELEVATED WHITE BLOOD CELL COUNT, UNSPECIFIED SNOMED Code(s): 302768482 (2) Rash Status: Acute Code(s): R21 - RASH AND OTHER NONSPECIFIC SKIN ERUPTION SNOMED Code(s): 262529196 Plan: 1patient did have a very mild petechial rash to the lower extremity in this patient admitted to hospital with generalized weakness fatigue and acute renal failure clinical suspicion low for any infectious etiology 2-did have a positive UA however culture has been negative 3-leukocytosis possibly reactive and is trending down 4-await surgical evaluation and possible biopsy We will follow on clinical condition and cultures to further adjust medication if needed Thank you for this consultation we will follow the patient along with you Dictation was produced using [employer] dictation software. please excuse any grammatical, word or spelling errors. Time with Patient: Greater than 30
[2023-07-03 06:14] LABS: Glucose,Whole Blood 139 mg/dL (70-110)
[2023-07-03 07:50] LABS: Basophils % (A) 0 %; Eosinophils % (A) 0 %; HCT 27.2 % (34.0-46.0); HGB 8.2 gm/dL (11.4-16.0); Hypochromasia Moderate; Lymphocytes % (A) 9 %; MCH 26.4 pg (25.0-35.0); MCHC 29.9 g/dL (31.0-37.0); MCV 88.2 fL (80.0-100.0); Mean Platelet Volume 7.9; Monocytes # (A) 0.1 k/uL (0-1.0); Monocytes % (A) 1 %; Neutrophils # (A) 9.6 k/uL (1.3-7.7); Neutrophils % (A) 89 %; Platelet Count 475 k/uL (150-450); RBC 3.09 m/uL (3.80-5.40); RDW 14.9 % (11.5-15.5); WBC 10.8 k/uL (3.8-10.6)
[2023-07-03 08:06] LABS: ALT 16 U/L (4-34); AST 19 U/L (14-36); African American GFR (CKD) 13 (>60 ml/min/1.73 sqM); Albumin 2.6 g/dL (3.5-5.0); Alkaline Phosphatase 120 U/L (38-126); Anion Gap 7 mmol/L; Blood Urea Nitrogen 30 mg/dL (7-17); Calcium 8.1 mg/dL (8.4-10.2); Carbon Dioxide 30 mmol/L (22-30); Chloride 97 mmol/L (98-107); Glucose 127 mg/dL (74-99); Non-African American GFR(CKD) 11 (>60 ml/min/1.73 sqM); Potassium 4.6 mmol/L (3.5-5.1); Sodium 134 mmol/L (137-145); Total Bilirubin 0.4 mg/dL (0.2-1.3); Total Protein 5.4 g/dL (6.3-8.2)
[2023-07-03 11:39] LABS: Glucose,Whole Blood 128 mg/dL (70-110)
--- NOTE | 2023-07-03 13:26 | P.PN ---
Subjective Progress Note Date: 07/03/23 this is a 62-year-old female patient of Dr. Daniels who presented with complaints ofmuscle weakness and fatigue has been occurring over the past month patient reports she's had trouble completing her ADLs because of this muscle fatigue. Patient denies significant medical history except for mild COPD. Patient denies any recent illness or infection. Patient denies any change in medication. Patient denies changed diet.chest x-ray completed showing no acute cardiopulmonary disease. Renal ultrasound completed showing no evidence of hydronephrosis or shadowing calculus. labwork revealing WBC of 18.7, hemoglobin 8.4, creatinine 7.02, bun 73. UA showing small amount of leukocyte Estrace. This time blood and urine cultures will be ordered. Patient started on IV Rocephin. Patient started normal saline. Nephrology services have been consulted. repeat labs ordered On 07/01/2023 patient was seen and examined on the medical floor she is alert and oriented 3 in no apparent distress she is complaining of generalized pain and weakness otherwise she denies any complaints, she is receiving her first session of hemodialysis, there is no fever or chills no headache or dizziness no chest pain no shortness of breath no cough no nausea or vomiting no abdominal pain no diarrhea and no urinary symptoms. On 07/02/2023 patient is alert and oriented 3. Patient still complaining of significant body aches with nausea. Patient currently getting second round of hemodialysis. She reports rash possible bites and lower extremities will consult infectious disease services. lyme disease lab work ordered. Nephrology services ordering for kidney biopsy.Current vital signs temp 98.1, heart rate 78, respiratory rate 16, blood pressure 131/67 with a pulse ox 92% on room air. On 07/03/2023 patient was seen and examined on the medical floor she is alert alert and oriented 3 in no apparent distress, of generalized body ache and weakness, otherwise she denies any complaints there is no fever or chills no headache or dizziness no chest pain no shortness of breath no cough no nausea or vomiting no abdominal pain no diarrhea and no urinary symptoms vital examination reveals a temperature of 97.9 pulse 72 respiration 20 blood pressure 144/72 pulse ox 97% on 3 L nasal cannula. 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 Objective - Vital Signs Vital signs: Vital Signs Temp 97.9 F 07/03/23 11:43 Pulse 72 07/03/23 11:43 Resp 20 07/03/23 11:43 BP 144/72 07/03/23 11:43 Pulse Ox 97 07/03/23 11:43 FiO2 Intake & Output 07/02/23 07/03/23 07/03/23 18:59 06:59 18:59 Intake Total 900 118 Output Total 1450 250 Balance -550 -250 118 Weight 72.9 kg Intake: Oral 0 118 Hemodialysis 900 Output: Urine 550 250 Hemodialysis 900 Other: Voiding Method Toilet Toilet Toilet # Voids 2 - Exam In general patient is alert and oriented x 3 in no distress HEENT head normocephalic and atraumatic Neck is supple no JVD no goiter no lymphadenopathy no carotid bruit Chest examination is clear to auscultation no crackles no wheezing Cardiac exam reveals regular heart sounds S1 and S2 no gallops no murmurs Abdomen is soft nontender no organomegaly with normal bowel sounds Extremity exam reveals no edema no cyanosis or clubbing Neurological examination reveals no gross focal deficits - Labs CBC & Chem 7: 07/03/23 06:25 07/03/23 06:25 Labs: Abnormal Lab Results - Last 24 Hours (Table) 06/30/23 07/02/23 07/02/23 Range/Units 11:48 08:48 16:23 WBC 14.0 H (3.8-10.6) k/uL RBC 3.04 L (3.80-5.40) m/uL Hgb 8.3 L (11.4-16.0) gm/dL Hct 26.7 L (34.0-46.0) % MCHC (31.0-37.0) g/dL Plt Count 533 H (150-450) k/uL Neutrophils # 10.8 H (1.3-7.7) k/uL Sodium (137-145) mmol/L Chloride (98-107) mmol/L BUN (7-17) mg/dL Creatinine (0.52-1.04) mg/dL Glucose (74-99) mg/dL POC Glucose (mg/dL) 116 H (70-110) mg/dL Calcium (8.4-10.2) mg/dL Total Protein (6.3-8.2) g/dL Albumin (3.5-5.0) g/dL c-ANCA 1:80 A (<1:20) Titer 07/03/23 07/03/23 07/03/23 Range/Units 06:11 06:25 06:25 WBC 10.8 H (3.8-10.6) k/uL RBC 3.09 L (3.80-5.40) m/uL Hgb 8.2 L (11.4-16.0) gm/dL Hct 27.2 L (34.0-46.0) % MCHC 29.9 L (31.0-37.0) g/dL Plt Count 475 H (150-450) k/uL Neutrophils # 9.6 H (1.3-7.7) k/uL Sodium 134 L (137-145) mmol/L Chloride 97 L (98-107) mmol/L BUN 30 H (7-17) mg/dL Creatinine 4.14 H (0.52-1.04) mg/dL Glucose 127 H (74-99) mg/dL POC Glucose (mg/dL) 139 H (70-110) mg/dL Calcium 8.1 L (8.4-10.2) mg/dL Total Protein 5.4 L (6.3-8.2) g/dL Albumin 2.6 L (3.5-5.0) g/dL c-ANCA (<1:20) Titer 07/03/23 Range/Units 11:37 WBC (3.8-10.6) k/uL RBC (3.80-5.40) m/uL Hgb (11.4-16.0) gm/dL Hct (34.0-46.0) % MCHC (31.0-37.0) g/dL Plt Count (150-450) k/uL Neutrophils # (1.3-7.7) k/uL Sodium (137-145) mmol/L Chloride (98-107) mmol/L BUN (7-17) mg/dL Creatinine (0.52-1.04) mg/dL Glucose (74-99) mg/dL POC Glucose (mg/dL) 128 H (70-110) mg/dL Calcium (8.4-10.2) mg/dL Total Protein (6.3-8.2) g/dL Albumin (3.5-5.0) g/dL c-ANCA (<1:20) Titer Microbiology - Last 24 Hours (Table) 06/29/23 22:25 Blood Culture - Preliminary Blood Assessment and Plan Assessment: 1. Muscle aches and fatigue likely secondary from acute renal failure 2. Acute renal failure. 3. Leukocytosis likely secondary from UTI. Urine and blood cultures ordered 3. History of COPD DVT prophylaxis heparin. GI prophylaxis Protonix Nephrology service is consulted Blood and urine cultures ordered Patient started on IV Rocephin Infectious disease service is following Patient started on hemodialysis Further lab work ordered Repeat labs ordered
--- NOTE | 2023-07-03 13:56 | P.PN ---
Subjective Progress Note Date: 07/03/23 Patient is seen in follow-up for acute kidney injury. Started on hemodialysis July 01, 2023. Tolerating dialysis well. Has been voiding. On IV fluids. Continues to have intermittent nausea and vomiting. C-ANCA postive and agreeable to kidney biopsy on Wednesday. Vital signs are stable. General: No acute distress. HEENT: Head exam is unremarkable. LUNGS: No audible rhonchi or wheezes. HEART: Rate and Rhythm are regular. ABDOMEN: Nontender. EXTREMITITES: No edema. Objective - Vital Signs Vital signs: Vital Signs Temp 97.4 F L 07/03/23 08:00 Pulse 72 07/03/23 08:16 Resp 20 07/03/23 08:00 BP 122/64 07/03/23 08:00 Pulse Ox 98 07/03/23 08:00 FiO2 Intake & Output 07/02/23 07/03/23 07/03/23 18:59 06:59 18:59 Intake Total 900 Output Total 1450 250 Balance -550 -250 Weight 72.9 kg Intake: Oral 0 Hemodialysis 900 Output: Urine 550 250 Hemodialysis 900 Other: Voiding Method Toilet Toilet Toilet # Voids 2 - Labs CBC & Chem 7: 07/03/23 06:25 07/03/23 06:25 Labs: Abnormal Lab Results - Last 24 Hours (Table) 06/30/23 07/02/23 07/02/23 Range/Units 11:48 08:48 16:23 WBC 14.0 H (3.8-10.6) k/uL RBC 3.04 L (3.80-5.40) m/uL Hgb 8.3 L (11.4-16.0) gm/dL Hct 26.7 L (34.0-46.0) % MCHC (31.0-37.0) g/dL Plt Count 533 H (150-450) k/uL Neutrophils # 10.8 H (1.3-7.7) k/uL Sodium (137-145) mmol/L Chloride (98-107) mmol/L BUN (7-17) mg/dL Creatinine (0.52-1.04) mg/dL Glucose (74-99) mg/dL POC Glucose (mg/dL) 116 H (70-110) mg/dL Calcium (8.4-10.2) mg/dL Total Protein (6.3-8.2) g/dL Albumin (3.5-5.0) g/dL c-ANCA 1:80 A (<1:20) Titer 07/03/23 07/03/23 07/03/23 Range/Units 06:11 06:25 06:25 WBC 10.8 H (3.8-10.6) k/uL RBC 3.09 L (3.80-5.40) m/uL Hgb 8.2 L (11.4-16.0) gm/dL Hct 27.2 L (34.0-46.0) % MCHC 29.9 L (31.0-37.0) g/dL Plt Count 475 H (150-450) k/uL Neutrophils # 9.6 H (1.3-7.7) k/uL Sodium 134 L (137-145) mmol/L Chloride 97 L (98-107) mmol/L BUN 30 H (7-17) mg/dL Creatinine 4.14 H (0.52-1.04) mg/dL Glucose 127 H (74-99) mg/dL POC Glucose (mg/dL) 139 H (70-110) mg/dL Calcium 8.1 L (8.4-10.2) mg/dL Total Protein 5.4 L (6.3-8.2) g/dL Albumin 2.6 L (3.5-5.0) g/dL c-ANCA (<1:20) Titer Microbiology - Last 24 Hours (Table) 06/29/23 22:25 Blood Culture - Preliminary Blood Assessment and Plan Plan: Assessment: 1. 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 No hydronephrosis noted on kidney ultrasound. Creatinine 8.13 dated July 01, 2023. Creatinine 0.8 in January 2023. UA does show 1+ protein and RBCs as well as RBC casts. Repeat UA shows protein and blood as well. UPC 1.44 g. Started on hemodialysis July 01, 2023. Has permacath. 2. Metabolic acidosis secondary to acute kidney injury. On bicarb drip. 3. Anemia. Iron deficiency noted. Plan: Third HD treatment today. Change IV fluids to normal saline. Kidney biopsy Wednesday to confirm vasculitis. IV solumedrol 3 days, prednisone on Wednesday. Poosible Rituximab infusion after biopsy. Maintain IV iron. Avoid nephrotoxins. Continue to monitor renal function and urine output. To receive IV DDAVP prior to biopsy.
--- NOTE | 2023-07-03 15:02 | P.PN ---
Subjective Progress Note Date: 07/03/23 Principal diagnosis: Vasculitis. This is a very pleasant 62-year-old female patient with a known history of chronic tobacco dependence, chronic obstructive pulmonary disease who she was told about COPD from a wire mill rover while in [place]. Has been maintained on Trelegy and albuterol. She presented here to the emergency room on 06/29/2023 with a 1 month history of progressive weakness and body aches and pains. She had developed poor appetite and was not eating or drinking much she was having issues with vomiting. Initial labs revealed a white count of 18.7. Hemoglobin 9.3. Platelets 665. Sodium 136. Potassium 4.9. Bicarb 18. BUN 73 and a creatinine of 7.02. Glucose 105. Urinalysis was cloudy with moderate blood and high RBCs. Renal ultrasound revealed no significant hydronephrosis. Been seen by nephrology who felt her acute kidney injury was secondary to acute tubular necrosis. There were in the process of ruling out glomerulonephritis. The plan is for kidney biopsy on 07/05/2023. She did have a double-lumen hemodialysis catheter placed in the right internal jugular. He was initiated on hemodialysis yesterday. Work today reveals a white count of 14.0. Hemoglobin 8.3. Platelets 533. Sodium 134. Potassium 4.3. Bicarb 31. BUN 48. Creatinine 5.62. She was found to have a positive C ANCA of 1:80 ratio and high rheumatoid factor of 27. Developed increasing shortness of breath today and we are consulted. She is seen on the regular medical floor. She is currently resting in bed. Awake and alert in no acute distress. She is maintaining O2 saturations in the 90s on room air. He is still having 9 body aches and pains. Urine culture revealed no growth. Blood cultures revealed no growth. Been initiated on Symbicort 80, Ventolin HFA every 6 as needed. She is on ceftriaxone. She is on desmopressin. Receiving iron supplements. Heparin for DVT prophylaxis. She will get methylprednisone 1 g IV piggyback daily for 3 days. Chest x-ray reveals no acute cardiopulmonary process. CT scan of the abdomen reveals a small right pleural effusion and small volume of associated atelectasis. Diverticulosis of the sigmoid colon but no diverticulitis. Progress note dated July 03, 2023. 62-year-old female that we saw yesterday in consultation. She does have a history of COPD, and follows with a wire mill rover in [place]. She presented to the emergency department on June 28, with weakness, body aches, and pains. The patient was noted to have a worsening renal function, rather acute, and, had hematuria. The patient had a c-ANCA performed that was positive. The patient was thought to possibly have a acute vasculitis. The c-ANCA test was positive with a titer of 1:80. The engineer second assistant following the patient, was going to start the patient on high-dose Solu-Medrol, 1 g every day for 3 days. In addition, the patient is apparently scheduled to have a renal biopsy, early next week. Currently, the patient is doing reasonably well. She is on her second dose of Solu-Medrol. She is getting oxygen at 3 L by nasal cannula. She continues on Rocephin. She has got saline at KVO. She is stable from the pulmonary standpoint. Current labs include a white count 10.8, hemoglobin 8.2, hematocrit 27.2, and platelet count 475,000. Sodium 134, potassium 4.6, chloride 97, CO2 30, BUN 30, creatinine 4.14. Albumin is 2.6. Total protein is 5.4. CT of the abdomen pelvis reveals a small right pleural effusion, and evid ence of diverticulosis. Objective - Vital Signs Vital signs: Vital Signs Temp 97.9 F 07/03/23 11:43 Pulse 72 07/03/23 11:43 Resp 20 07/03/23 11:43 BP 144/72 07/03/23 11:43 Pulse Ox 97 07/03/23 11:43 FiO2 Intake & Output 07/02/23 07/03/23 07/03/23 18:59 06:59 18:59 Intake Total 900 118 Output Total 1450 250 Balance -550 -250 118 Weight 72.9 kg Intake: Oral 0 118 Hemodialysis 900 Output: Urine 550 250 Hemodialysis 900 Other: Voiding Method Toilet Toilet Toilet # Voids 2 - Exam No acute distress, oriented 3. The patient is currently on 3 L nasal cannula. No obvious respiratory distress. HEENT examination is grossly unremarkable. Mucous membranes are moist. No oral lesions. Neck supple. Full range of motion. No adenopathy thyromegaly or neck vein distention. Cardiovascular examination reveals regular rhythm rate. S1-S2 normal. No S3 or S4. No discernible murmur noted. Heart rate 72 bpm. Lungs reveal clear breath sounds. Breath sounds are equal bilaterally. No adventitious lung sounds including wheezes rhonchi or crackles. Saturations are 97%. Abdomen soft bowel sounds are heard. No masses or tenderness. Extremities are intact. No cyanosis clubbing or edema. Skin is without rash or lesion. Neurologic examination is brief but nonfocal. - Labs CBC & Chem 7: 07/03/23 06:25 07/03/23 06:25 Labs: Abnormal Lab Results - Last 24 Hours (Table) 07/02/23 07/03/23 07/03/23 Range/Units 16:23 06:11 06:25 WBC 10.8 H (3.8-10.6) k/uL RBC 3.09 L (3.80-5.40) m/uL Hgb 8.2 L (11.4-16.0) gm/dL Hct 27.2 L (34.0-46.0) % MCHC 29.9 L (31.0-37.0) g/dL Plt Count 475 H (150-450) k/uL Neutrophils # 9.6 H (1.3-7.7) k/uL Sodium (137-145) mmol/L Chloride (98-107) mmol/L BUN (7-17) mg/dL Creatinine (0.52-1.04) mg/dL Glucose (74-99) mg/dL POC Glucose (mg/dL) 116 H 139 H (70-110) mg/dL Calcium (8.4-10.2) mg/dL Total Protein (6.3-8.2) g/dL Albumin (3.5-5.0) g/dL 07/03/23 07/03/23 Range/Units 06:25 11:37 WBC (3.8-10.6) k/uL RBC (3.80-5.40) m/uL Hgb (11.4-16.0) gm/dL Hct (34.0-46.0) % MCHC (31.0-37.0) g/dL Plt Count (150-450) k/uL Neutrophils # (1.3-7.7) k/uL Sodium 134 L (137-145) mmol/L Chloride 97 L (98-107) mmol/L BUN 30 H (7-17) mg/dL Creatinine 4.14 H (0.52-1.04) mg/dL Glucose 127 H (74-99) mg/dL POC Glucose (mg/dL) 128 H (70-110) mg/dL Calcium 8.1 L (8.4-10.2) mg/dL Total Protein 5.4 L (6.3-8.2) g/dL Albumin 2.6 L (3.5-5.0) g/dL Microbiology - Last 24 Hours (Table) 06/29/23 22:25 Blood Culture - Preliminary Blood Assessment and Plan Assessment: Generalized weakness with associated nausea and vomiting for several days with poor appetite and poor oral intake. Acute kidney injury presenting creatinine of 7.02 requiring renal replacement therapy. Suspected vasculitis with a C ANCA of 1:80 ratio, rheumatoid factor 27, initiated on 1000 mg of Solu-Medrol daily for 3 days. Plan is for kidney biopsy. Chronic obstructive pulmonary disease. Chronic tobacco dependence. Plan: Plan dated July 03, 2023. The patient stable from the pulmonary standpoint. She remains on 3 L. Patient is receiving Solu-Medrol, 1 g, daily, for 3 days. The plan is for a kidney biopsy early next week. She may have a C ANCA positive vasculitis. Primarily seems to be affecting her kidneys, and not so much her lungs. The patient does have a history of COPD, from previous tobacco use. She does typically take Trelegy at home. We will continue to follow and make recommendations where appropriate. Prognosis is certainly guarded. Time with Patient: Less than 30
[2023-07-03 16:33] LABS: Glucose,Whole Blood 212 mg/dL (70-110)
--- NOTE | 2023-07-03 18:13 | P.PN ---
Subjective Progress Note Date: 07/03/23 Patient resting comfortably. Son at bedside. Patient reports relatively clean family history without vasculitides or connective tissue disorder. Since start of steroids, she reports mild improvement of her joints including headaches. Abdomen: No peritonitis. Skin: Punctate 6 mm ulcerations along the left dorsum foot x 4. Plan: 1. Biopsy for vasculitides pending. In the interim. Steroid treatment advised with improvement clinically at this time Objective - Vital Signs Vital signs: Vital Signs Temp 99 F 07/03/23 16:55 Pulse 76 07/03/23 16:55 Resp 18 07/03/23 16:55 BP 132/70 07/03/23 16:55 Pulse Ox 97 07/03/23 16:13 FiO2 Intake & Output 07/02/23 07/03/23 07/03/23 18:59 06:59 18:59 Intake Total 900 1036 Output Total 1450 250 900 Balance -550 -250 136 Weight 72.9 kg Intake: Intake, IV Titration 400 Amount Sodium Ferric Gluconat- 100 Sucrose 125 mg In Sodium Chloride 0.9% 100 ml @ 100 mls/hr IVPB DAILY [facility] Rx#:[id number] cefTRIAXone 1 gm In 50 Sodium Chloride 0.9% 50 ml @ 100 mls/hr IVPB Q24HR [facility] Rx#:[id number] methylPREDNISolone SOD 250 SUCCIN 1,000 mg In Sodium Chloride 0.9% 250 ml @ 250 mls/hr IVPB DAILY@ 1800 [facility] Rx#:[id number] Oral 0 236 Hemodialysis 900 400 Output: Urine 550 250 Hemodialysis 900 900 Other: Voiding Method Toilet Toilet Toilet # Voids 2 0 - Labs CBC & Chem 7: 07/03/23 06:25 07/03/23 06:25 Labs: Abnormal Lab Results - Last 24 Hours (Table) 07/03/23 07/03/23 07/03/23 Range/Units 06:11 06:25 06:25 WBC 10.8 H (3.8-10.6) k/uL RBC 3.09 L (3.80-5.40) m/uL Hgb 8.2 L (11.4-16.0) gm/dL Hct 27.2 L (34.0-46.0) % MCHC 29.9 L (31.0-37.0) g/dL Plt Count 475 H (150-450) k/uL Neutrophils # 9.6 H (1.3-7.7) k/uL Sodium 134 L (137-145) mmol/L Chloride 97 L (98-107) mmol/L BUN 30 H (7-17) mg/dL Creatinine 4.14 H (0.52-1.04) mg/dL Glucose 127 H (74-99) mg/dL POC Glucose (mg/dL) 139 H (70-110) mg/dL Calcium 8.1 L (8.4-10.2) mg/dL Total Protein 5.4 L (6.3-8.2) g/dL Albumin 2.6 L (3.5-5.0) g/dL 07/03/23 07/03/23 Range/Units 11:37 16:31 WBC (3.8-10.6) k/uL RBC (3.80-5.40) m/uL Hgb (11.4-16.0) gm/dL Hct (34.0-46.0) % MCHC (31.0-37.0) g/dL Plt Count (150-450) k/uL Neutrophils # (1.3-7.7) k/uL Sodium (137-145) mmol/L Chloride (98-107) mmol/L BUN (7-17) mg/dL Creatinine (0.52-1.04) mg/dL Glucose (74-99) mg/dL POC Glucose (mg/dL) 128 H 212 H (70-110) mg/dL Calcium (8.4-10.2) mg/dL Total Protein (6.3-8.2) g/dL Albumin (3.5-5.0) g/dL Microbiology - Last 24 Hours (Table) 06/29/23 22:25 Blood Culture - Preliminary Blood
[2023-07-03 20:26] LABS: Glucose,Whole Blood 136 mg/dL (70-110)
--- NOTE | 2023-07-03 21:47 | P.PN ---
Subjective Progress Note Date: 07/03/23 Principal diagnosis: Reason for follow-up is rash and leukocytosis Patient is a 62-year female presented to hospital with muscle weakness fatigue has been diagnosed with acute renal failure also have a rash concerning for vasculitis versus infectious etiology prompting this consultation. On today's evaluation that is 07/03/2023, Patient is afebrile patient is current ly on 3 L nasal cannula oxygen and denies having any shortness of breath, the patient denies any chest pain or cough, the patient denies any nausea vomiting did not have any abdominal pain and no diarrhea, no new rash. Patient white count is down to 10.8 creatinine is 4.14 blood urine culture has been negative Objective - Vital Signs Vital signs: Vital Signs Temp 97.9 F 07/03/23 11:43 Pulse 76 07/03/23 15:44 Resp 20 07/03/23 11:43 BP 144/72 07/03/23 11:43 Pulse Ox 97 07/03/23 11:43 FiO2 Intake & Output 07/02/23 07/03/23 07/03/23 18:59 06:59 18:59 Intake Total 900 236 Output Total 1450 250 Balance -550 -250 236 Weight 72.9 kg Intake: Oral 0 236 Hemodialysis 900 Output: Urine 550 250 Hemodialysis 900 Other: Voiding Method Toilet Toilet Toilet # Voids 2 - Exam GENERAL DESCRIPTION: Middle-aged female lying in bed in no distress RESPIRATORY SYSTEM: Unlabored breathing , decreased breath sounds at bases HEART: S1 S2 regular rate and rhythm , ABDOMEN: Soft , no tenderness EXTREMITIES: No edema feet - Labs CBC & Chem 7: 07/03/23 06:25 07/03/23 06:25 Labs: Abnormal Lab Results - Last 24 Hours (Table) 07/02/23 07/03/23 07/03/23 Range/Units 16:23 06:11 06:25 WBC 10.8 H (3.8-10.6) k/uL RBC 3.09 L (3.80-5.40) m/uL Hgb 8.2 L (11.4-16.0) gm/dL Hct 27.2 L (34.0-46.0) % MCHC 29.9 L (31.0-37.0) g/dL Plt Count 475 H (150-450) k/uL Neutrophils # 9.6 H (1.3-7.7) k/uL Sodium (137-145) mmol/L Chloride (98-107) mmol/L BUN (7-17) mg/dL Creatinine (0.52-1.04) mg/dL Glucose (74-99) mg/dL POC Glucose (mg/dL) 116 H 139 H (70-110) mg/dL Calcium (8.4-10.2) mg/dL Total Protein (6.3-8.2) g/dL Albumin (3.5-5.0) g/dL 07/03/23 07/03/23 Range/Units 06:25 11:37 WBC (3.8-10.6) k/uL RBC (3.80-5.40) m/uL Hgb (11.4-16.0) gm/dL Hct (34.0-46.0) % MCHC (31.0-37.0) g/dL Plt Count (150-450) k/uL Neutrophils # (1.3-7.7) k/uL Sodium 134 L (137-145) mmol/L Chloride 97 L (98-107) mmol/L BUN 30 H (7-17) mg/dL Creatinine 4.14 H (0.52-1.04) mg/dL Glucose 127 H (74-99) mg/dL POC Glucose (mg/dL) 128 H (70-110) mg/dL Calcium 8.1 L (8.4-10.2) mg/dL Total Protein 5.4 L (6.3-8.2) g/dL Albumin 2.6 L (3.5-5.0) g/dL Microbiology - Last 24 Hours (Table) 06/29/23 22:25 Blood Culture - Preliminary Blood Assessment and Plan (1) Rash Current Visit: Yes Status: Acute Code(s): R21 - RASH AND OTHER NONSPECIFIC SKIN ERUPTION SNOMED Code(s): 213510648 (2) Leukocytosis Current Visit: Yes Status: Acute Code(s): D72.829 - ELEVATED WHITE BLOOD CELL COUNT, UNSPECIFIED SNOMED Code(s): 188253750 Plan: 1patient did have a very mild petechial rash to the lower extremity in this patient admitted to hospital with generalized weakness fatigue and acute renal failure clinical suspicion low for any infectious etiology 2-did have a positive UA however culture has been negative 3-leukocytosis possibly reactive and has normalized 4-await biopsy that will help in the diagnosis and monitor clinical course padmaja morley Dictation was produced using [employer] dictation software. please excuse any grammatical, word or spelling errors. Time with Patient: Less than 30
[2023-07-04 06:14] LABS: Glucose,Whole Blood 136 mg/dL (70-110)
[2023-07-04 06:40] LABS: Basophils % (A) 0 %; Eosinophils % (A) 0 %; HCT 25.5 % (34.0-46.0); HGB 7.8 gm/dL (11.4-16.0); Hypochromasia Slight; Lymphocytes # (A) 1.3 k/uL (1.0-4.8); Lymphocytes % (A) 6 %; MCH 26.5 pg (25.0-35.0); MCHC 30.5 g/dL (31.0-37.0); MCV 86.7 fL (80.0-100.0); Mean Platelet Volume 7.8; Monocytes # (A) 0.5 k/uL (0-1.0); Monocytes % (A) 3 %; Neutrophils # (A) 18.3 k/uL (1.3-7.7); Neutrophils % (A) 91 %; Platelet Count 473 k/uL (150-450); RBC 2.94 m/uL (3.80-5.40); RDW 15.1 % (11.5-15.5); WBC 20.2 k/uL (3.8-10.6)
[2023-07-04 06:52] LABS: ALT 18 U/L (4-34); AST 23 U/L (14-36); African American GFR (CKD) 16 (>60 ml/min/1.73 sqM); Albumin 2.8 g/dL (3.5-5.0); Alkaline Phosphatase 130 U/L (38-126); Anion Gap 8 mmol/L; Blood Urea Nitrogen 30 mg/dL (7-17); Carbon Dioxide 30 mmol/L (22-30); Chloride 93 mmol/L (98-107); Glucose 123 mg/dL (74-99); Non-African American GFR(CKD) 14 (>60 ml/min/1.73 sqM); Potassium 4.2 mmol/L (3.5-5.1); Sodium 131 mmol/L (137-145); Total Bilirubin 0.4 mg/dL (0.2-1.3); Total Protein 5.8 g/dL (6.3-8.2)
[2023-07-04 06:59] LABS: INR 1.1 (<1.2)
--- NOTE | 2023-07-04 10:09 | P.PN ---
Subjective Progress Note Date: 07/04/23 this is a 62-year-old female patient of Dr. Daniels who presented with complaints ofmuscle weakness and fatigue has been occurring over the past month patient reports she's had trouble completing her ADLs because of this muscle fatigue. Patient denies significant medical history except for mild COPD. Patient denies any recent illness or infection. Patient denies any change in medication. Patient denies changed diet.chest x-ray completed showing no acute cardiopulmonary disease. Renal ultrasound completed showing no evidence of hydronephrosis or shadowing calculus. labwork revealing WBC of 18.7, hemoglobin 8.4, creatinine 7.02, bun 73. UA showing small amount of leukocyte Estrace. This time blood and urine cultures will be ordered. Patient started on IV Rocephin. Patient started normal saline. Nephrology services have been consulted. repeat labs ordered On 07/01/2023 patient was seen and examined on the medical floor she is alert and oriented 3 in no apparent distress she is complaining of generalized pain and weakness otherwise she denies any complaints, she is receiving her first session of hemodialysis, there is no fever or chills no headache or dizziness no chest pain no shortness of breath no cough no nausea or vomiting no abdominal pain no diarrhea and no urinary symptoms. On 07/02/2023 patient is alert and oriented 3. Patient still complaining of significant body aches with nausea. Patient currently getting second round of hemodialysis. She reports rash possible bites and lower extremities will consult infectious disease services. lyme disease lab work ordered. Nephrology services ordering for kidney biopsy.Current vital signs temp 98.1, heart rate 78, respiratory rate 16, blood pressure 131/67 with a pulse ox 92% on room air. On 07/03/2023 patient was seen and examined on the medical floor she is alert alert and oriented 3 in no apparent distress, of generalized body ache and weakness, otherwise she denies any complaints there is no fever or chills no headache or dizziness no chest pain no shortness of breath no cough no nausea or vomiting no abdominal pain no diarrhea and no urinary symptoms vital examination reveals a temperature of 97.9 pulse 72 respiration 20 blood pressure 144/72 pulse ox 97% on 3 L nasal cannula. 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 on 07/04/2023 patient's alert and oriented 3. Patient still complaining of generalized ache and weakness current vital signs temp 97.7, heart rate 68, respiratory rate 20, blood pressure 168/84 and pulse ox 99% on 3 L. patient remains on IV Solu-Medrol. Nephrology, infectious disease, surgical critical care services are following. Objective - Vital Signs Vital signs: Vital Signs Temp 97.7 F 07/04/23 08:00 Pulse 76 07/04/23 08:24 Resp 20 07/04/23 08:00 BP 168/84 07/04/23 08:00 Pulse Ox 99 07/04/23 08:00 FiO2 Intake & Output 07/03/23 07/04/23 07/04/23 18:59 06:59 18:59 Intake Total 1154 540 Output Total 900 400 Balance 254 140 Weight 71.6 kg Intake: Intake, IV Titration 400 Amount Sodium Ferric Gluconat- 100 Sucrose 125 mg In Sodium Chloride 0.9% 100 ml @ 100 mls/hr IVPB DAILY [facility] Rx#:[id number] cefTRIAXone 1 gm In 50 Sodium Chloride 0.9% 50 ml @ 100 mls/hr IVPB Q24HR [facility] Rx#:[id number] methylPREDNISolone SOD 250 SUCCIN 1,000 mg In Sodium Chloride 0.9% 250 ml @ 250 mls/hr IVPB DAILY@ 1800 [facility] Rx#:[id number] Oral 354 540 Hemodialysis 400 Output: Urine 400 Hemodialysis 900 Other: Voiding Method Toilet Toilet Toilet # Voids 0 - Exam In general patient is alert and oriented x 3 in no distress HEENT head normocephalic and atraumatic Neck is supple no JVD no goiter no lymphadenopathy no carotid bruit Chest examination is clear to auscultation no crackles no wheezing Cardiac exam reveals regular heart sounds S1 and S2 no gallops no murmurs Abdomen is soft nontender no organomegaly with normal bowel sounds Extremity exam reveals no edema no cyanosis or clubbing Neurological examination reveals no gross focal deficits - Labs CBC & Chem 7: 07/04/23 05:56 07/04/23 05:56 Labs: Abnormal Lab Results - Last 24 Hours (Table) 07/03/23 07/03/23 07/03/23 Range/Units 11:37 16:31 20:24 WBC (3.8-10.6) k/uL RBC (3.80-5.40) m/uL Hgb (11.4-16.0) gm/dL Hct (34.0-46.0) % MCHC (31.0-37.0) g/dL Plt Count (150-450) k/uL Neutrophils # (1.3-7.7) k/uL Sodium (137-145) mmol/L Chloride (98-107) mmol/L BUN (7-17) mg/dL Creatinine (0.52-1.04) mg/dL Glucose (74-99) mg/dL POC Glucose (mg/dL) 128 H 212 H 136 H (70-110) mg/dL Calcium (8.4-10.2) mg/dL Alkaline Phosphatase (38-126) U/L Total Protein (6.3-8.2) g/dL Albumin (3.5-5.0) g/dL 07/04/23 07/04/23 07/04/23 Range/Units 05:56 05:56 06:12 WBC 20.2 H (3.8-10.6) k/uL RBC 2.94 L (3.80-5.40) m/uL Hgb 7.8 L (11.4-16.0) gm/dL Hct 25.5 L (34.0-46.0) % MCHC 30.5 L (31.0-37.0) g/dL Plt Count 473 H (150-450) k/uL Neutrophils # 18.3 H (1.3-7.7) k/uL Sodium 131 L (137-145) mmol/L Chloride 93 L (98-107) mmol/L BUN 30 H (7-17) mg/dL Creatinine 3.38 H (0.52-1.04) mg/dL Glucose 123 H (74-99) mg/dL POC Glucose (mg/dL) 136 H (70-110) mg/dL Calcium 8.0 L (8.4-10.2) mg/dL Alkaline Phosphatase 130 H (38-126) U/L Total Protein 5.8 L (6.3-8.2) g/dL Albumin 2.8 L (3.5-5.0) g/dL Assessment and Plan Assessment: 1. Muscle aches and fatigue likely secondary from acute renal failure 2. Acute renal failure. 3. Leukocytosis likely secondary from UTI. Urine and blood cultures ordered 3. History of COPD DVT prophylaxis heparin. GI prophylaxis Protonix Blood and urine cultures ordered Patient started on IV Rocephin Infectious disease service is following Patient started on hemodialysis plans for kidney biopsy 07/05/2023 Further lab work ordered Repeat labs ordered
--- NOTE | 2023-07-04 10:53 | P.PN ---
Subjective Progress Note Date: 07/04/23 Patient is seen in follow-up for acute kidney injury. Started on hemodialysis July 01, 2023. Tolerating dialysis well. Has been voiding. On IV fluids. Continues to have intermittent nausea and vomiting. C-ANCA postive and agreeable to kidney biopsy on Wednesday. Vital signs are stable. General: No acute distress. HEENT: Head exam is unremarkable. LUNGS: No audible rhonchi or wheezes. HEART: Rate and Rhythm are regular. ABDOMEN: Nontender. EXTREMITITES: No edema. Objective - Vital Signs Vital signs: Vital Signs Temp 98 F 07/03/23 20:00 Pulse 76 07/04/23 08:24 Resp 18 07/04/23 03:59 BP 154/74 07/04/23 03:59 Pulse Ox 96 07/04/23 03:59 FiO2 Intake & Output 07/03/23 07/04/23 07/04/23 18:59 06:59 18:59 Intake Total 1154 540 Output Total 900 400 Balance 254 140 Weight 71.6 kg Intake: Intake, IV Titration 400 Amount Sodium Ferric Gluconat- 100 Sucrose 125 mg In Sodium Chloride 0.9% 100 ml @ 100 mls/hr IVPB DAILY [facility] Rx#:[id number] cefTRIAXone 1 gm In 50 Sodium Chloride 0.9% 50 ml @ 100 mls/hr IVPB Q24HR [facility] Rx#:[id number] methylPREDNISolone SOD 250 SUCCIN 1,000 mg In Sodium Chloride 0.9% 250 ml @ 250 mls/hr IVPB DAILY@ 1800 [facility] Rx#:[id number] Oral 354 540 Hemodialysis 400 Output: Urine 400 Hemodialysis 900 Other: Voiding Method Toilet Toilet # Voids 0 - Labs CBC & Chem 7: 07/04/23 05:56 07/04/23 05:56 Labs: Abnormal Lab Results - Last 24 Hours (Table) 07/03/23 07/03/23 07/03/23 Range/Units 11:37 16:31 20:24 WBC (3.8-10.6) k/uL RBC (3.80-5.40) m/uL Hgb (11.4-16.0) gm/dL Hct (34.0-46.0) % MCHC (31.0-37.0) g/dL Plt Count (150-450) k/uL Neutrophils # (1.3-7.7) k/uL Sodium (137-145) mmol/L Chloride (98-107) mmol/L BUN (7-17) mg/dL Creatinine (0.52-1.04) mg/dL Glucose (74-99) mg/dL POC Glucose (mg/dL) 128 H 212 H 136 H (70-110) mg/dL Calcium (8.4-10.2) mg/dL Alkaline Phosphatase (38-126) U/L Total Protein (6.3-8.2) g/dL Albumin (3.5-5.0) g/dL 07/04/23 07/04/23 07/04/23 Range/Units 05:56 05:56 06:12 WBC 20.2 H (3.8-10.6) k/uL RBC 2.94 L (3.80-5.40) m/uL Hgb 7.8 L (11.4-16.0) gm/dL Hct 25.5 L (34.0-46.0) % MCHC 30.5 L (31.0-37.0) g/dL Plt Count 473 H (150-450) k/uL Neutrophils # 18.3 H (1.3-7.7) k/uL Sodium 131 L (137-145) mmol/L Chloride 93 L (98-107) mmol/L BUN 30 H (7-17) mg/dL Creatinine 3.38 H (0.52-1.04) mg/dL Glucose 123 H (74-99) mg/dL POC Glucose (mg/dL) 136 H (70-110) mg/dL Calcium 8.0 L (8.4-10.2) mg/dL Alkaline Phosphatase 130 H (38-126) U/L Total Protein 5.8 L (6.3-8.2) g/dL Albumin 2.8 L (3.5-5.0) g/dL Microbiology - Last 24 Hours (Table) 06/29/23 22:25 Blood Culture - Preliminary Blood Assessment and Plan Plan: Assessment: 1. 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 No hydronephrosis noted on kidney ultrasound. Creatinine 8.13 dated July 01, 2023. Creatinine 0.8 in January 2023. UA does show 1+ protein and RBCs as well as RBC casts. Repeat UA shows protein and blood as well. UPC 1.44 g. Started on hemodialysis July 01, 2023. Has permacath. 2. Metabolic acidosis secondary to acute kidney injury. On bicarb drip. 3. Anemia. Iron deficiency noted. Plan: HD planned again Wednesday. Continue IV fluids. Kidney biopsy Wednesday to confirm vasculitis. IV solumedrol 3 days, prednisone on Wednesday. Poosible Rituximab infusion after biopsy. Maintain IV iron. Avoid nephrotoxins. Continue to monitor renal function and urine output. To receive IV DDAVP prior to biopsy.
[2023-07-04 11:33] LABS: Glucose,Whole Blood 143 mg/dL (70-110)
--- NOTE | 2023-07-04 12:29 | P.PN ---
Subjective Progress Note Date: 07/04/23 Principal diagnosis: Vasculitis. This is a very pleasant 62-year-old female patient with a known history of chronic tobacco dependence, chronic obstructive pulmonary disease who she was told about COPD from a director medical affairs while in [place]. Has been maintained on Trelegy and albuterol. She presented here to the emergency room on 06/29/2023 with a 1 month history of progressive weakness and body aches and pains. She had developed poor appetite and was not eating or drinking much she was having issues with vomiting. Initial labs revealed a white count of 18.7. Hemoglobin 9.3. Platelets 665. Sodium 136. Potassium 4.9. Bicarb 18. BUN 73 and a creatinine of 7.02. Glucose 105. Urinalysis was cloudy with moderate blood and high RBCs. Renal ultrasound revealed no significant hydronephrosis. Been seen by nephrology who felt her acute kidney injury was secondary to acute tubular necrosis. There were in the process of ruling out glomerulonephritis. The plan is for kidney biopsy on 07/05/2023. She did have a double-lumen hemodialysis catheter placed in the right internal jugular. He was initiated on hemodialysis yesterday. Work today reveals a white count of 14.0. Hemoglobin 8.3. Platelets 533. Sodium 134. Potassium 4.3. Bicarb 31. BUN 48. Creatinine 5.62. She was found to have a positive C ANCA of 1:80 ratio and high rheumatoid factor of 27. Developed increasing shortness of breath today and we are consulted. She is seen on the regular medical floor. She is currently resting in bed. Awake and alert in no acute distress. She is maintaining O2 saturations in the 90s on room air. He is still having 9 body aches and pains. Urine culture revealed no growth. Blood cultures revealed no growth. Been initiated on Symbicort 80, Ventolin HFA every 6 as needed. She is on ceftriaxone. She is on desmopressin. Receiving iron supplements. Heparin for DVT prophylaxis. She will get methylprednisone 1 g IV piggyback daily for 3 days. Chest x-ray reveals no acute cardiopulmonary process. CT scan of the abdomen reveals a small right pleural effusion and small volume of associated atelectasis. Diverticulosis of the sigmoid colon but no diverticulitis. Progress note dated July 03, 2023. 62-year-old female that we saw yesterday in consultation. She does have a history of COPD, and follows with a director medical affairs in [place]. She presented to the emergency department on June 28, with weakness, body aches, and pains. The patient was noted to have a worsening renal function, rather acute, and, had hematuria. The patient had a c-ANCA performed that was positive. The patient was thought to possibly have a acute vasculitis. The c-ANCA test was positive with a titer of 1:80. The retail loss prevention specialist following the patient, was going to start the patient on high-dose Solu-Medrol, 1 g every day for 3 days. In addition, the patient is apparently scheduled to have a renal biopsy, early next week. Currently, the patient is doing reasonably well. She is on her second dose of Solu-Medrol. She is getting oxygen at 3 L by nasal cannula. She continues on Rocephin. She has got saline at KVO. She is stable from the pulmonary standpoint. Current labs include a white count 10.8, hemoglobin 8.2, hematocrit 27.2, and platelet count 475,000. Sodium 134, potassium 4.6, chloride 97, CO2 30, BUN 30, creatinine 4.14. Albumin is 2.6. Total protein is 5.4. CT of the abdomen pelvis reveals a small right pleural effusion, and evid ence of diverticulosis. Progress note dated July 04, 2023. The patient is seen today in room 353. She was seen in consultation 2 days ago. The patient does have an established history of COPD. She was admitted with acute kidney injury, thought to possibly have a vasculitis. Her C ANCA, was po sitive. She was started on high-dose corticosteroids, by nephrology. From the pulmonary standpoint, she is doing about the same, or better. She does continue on 3 L of oxygen. She is not receiving any IV fluids. She is using her Trelegy, which is at the bedside. Current labs include a white count 20.2, hemoglobin 7.8, macro 25.5, and a platelet count of 473,000. Sodium 131, potassium 4.2, chlorides 93, CO2 30, BUN 30, creatinine 3.38. Glucose is 143. Albumin 2.8. Objective - Vital Signs Vital signs: Vital Signs Temp 97.9 F 07/04/23 11:53 Pulse 76 07/04/23 11:53 Resp 20 07/04/23 11:53 BP 170/78 07/04/23 11:53 Pulse Ox 91 L 07/04/23 11:53 FiO2 Intake & Output 07/03/23 07/04/23 07/04/23 18:59 06:59 18:59 Intake Total 1154 540 Output Total 900 400 Balance 254 140 Weight 71.6 kg Intake: Intake, IV Titration 400 Amount Sodium Ferric Gluconat- 100 Sucrose 125 mg In Sodium Chloride 0.9% 100 ml @ 100 mls/hr IVPB DAILY [facility] Rx#:[id number] cefTRIAXone 1 gm In 50 Sodium Chloride 0.9% 50 ml @ 100 mls/hr IVPB Q24HR [facility] Rx#:[id number] methylPREDNISolone SOD 250 SUCCIN 1,000 mg In Sodium Chloride 0.9% 250 ml @ 250 mls/hr IVPB DAILY@ 1800 [facility] Rx#:[id number] Oral 354 540 Hemodialysis 400 Output: Urine 400 Hemodialysis 900 Other: Voiding Method Toilet Toilet Toilet # Voids 0 - Exam No acute distress, oriented 3. The patient is currently on 2 L nasal cannula. No obvious respiratory distress. HEENT examination is grossly unremarkable. Mucous membranes are moist. No oral lesions. Neck supple. Full range of motion. No adenopathy thyromegaly or neck vein distention. Cardiovascular examination reveals regular rhythm rate. S1-S2 normal. No S3 or S4. No discernible murmur noted. Heart rate 76 bpm. Lungs reveal clear breath sounds. Breath sounds are equal bilaterally. No adventitious lung sounds including wheezes rhonchi or crackles. Saturations are 92 %. Abdomen soft bowel sounds are heard. No masses or tenderness. Extremities are intact. No cyanosis clubbing or edema. Skin is without rash or lesion. Neurologic examination is brief but nonfocal. - Labs CBC & Chem 7: 07/04/23 05:56 07/04/23 05:56 Labs: Abnormal Lab Results - Last 24 Hours (Table) 07/03/23 07/03/23 07/04/23 Range/Units 16:31 20:24 05:56 WBC 20.2 H (3.8-10.6) k/uL RBC 2.94 L (3.80-5.40) m/uL Hgb 7.8 L (11.4-16.0) gm/dL Hct 25.5 L (34.0-46.0) % MCHC 30.5 L (31.0-37.0) g/dL Plt Count 473 H (150-450) k/uL Neutrophils # 18.3 H (1.3-7.7) k/uL Sodium (137-145) mmol/L Chloride (98-107) mmol/L BUN (7-17) mg/dL Creatinine (0.52-1.04) mg/dL Glucose (74-99) mg/dL POC Glucose (mg/dL) 212 H 136 H (70-110) mg/dL Calcium (8.4-10.2) mg/dL Alkaline Phosphatase (38-126) U/L Total Protein (6.3-8.2) g/dL Albumin (3.5-5.0) g/dL 07/04/23 07/04/23 07/04/23 Range/Units 05:56 06:12 11:29 WBC (3.8-10.6) k/uL RBC (3.80-5.40) m/uL Hgb (11.4-16.0) gm/dL Hct (34.0-46.0) % MCHC (31.0-37.0) g/dL Plt Count (150-450) k/uL Neutrophils # (1.3-7.7) k/uL Sodium 131 L (137-145) mmol/L Chloride 93 L (98-107) mmol/L BUN 30 H (7-17) mg/dL Creatinine 3.38 H (0.52-1.04) mg/dL Glucose 123 H (74-99) mg/dL POC Glucose (mg/dL) 136 H 143 H (70-110) mg/dL Calcium 8.0 L (8.4-10.2) mg/dL Alkaline Phosphatase 130 H (38-126) U/L Total Protein 5.8 L (6.3-8.2) g/dL Albumin 2.8 L (3.5-5.0) g/dL Assessment and Plan Assessment: Generalized weakness with associated nausea and vomiting for several days with poor appetite and poor oral intake. Acute kidney injury presenting creatinine of 7.02 requiring renal replacement therapy. Suspected vasculitis with a C ANCA of 1:80 ratio, rheumatoid factor 27, initiated on 1000 mg of Solu-Medrol daily for 3 days. Plan is for kidney biopsy. Chronic obstructive pulmonary disease. Chronic tobacco dependence. Plan: Plan dated July 03, 2023. The patient stable from the pulmonary standpoint. She remains on 3 L. Patient is receiving Solu-Medrol, 1 g, daily, for 3 days. The plan is for a kidney biopsy early next week. She may have a C ANCA positive vasculitis. Primarily seems to be affecting her kidneys, and not so much her lungs. The patient does have a history of COPD, from previous tobacco use. She does typically take Jey legy at home. We will continue to follow and make recommendations where appropriate. Prognosis is certainly guarded. Plan dated July 04, 2023. The patient will get her third dose of high-dose Solu-Medrol today. In addition, the patient apparently is scheduled to have a kidney biopsy on Wednesday. She states that her breathing is a bit worse, so we advised her to use her bedside Trelegy, 200, 1 puff daily. Labs, x-rays, medications are reviewed. We will continue to follow the patient, make recommendations along the way. Prognosis is guarded. Respiratory status is reasonably stable. Time with Patient: Less than 30
--- NOTE | 2023-07-04 12:31 | P.PN ---
Subjective Progress Note Date: 07/04/23 patient [place] stable. Her And her rash has remained stable. We will plan for bedside skin biopsy tomorrow. Objective - Vital Signs Vital signs: Vital Signs Temp 97.9 F 07/04/23 11:53 Pulse 76 07/04/23 11:53 Resp 20 07/04/23 11:53 BP 170/78 07/04/23 11:53 Pulse Ox 91 L 07/04/23 11:53 FiO2 Intake & Output 07/03/23 07/04/23 07/04/23 18:59 06:59 18:59 Intake Total 1154 540 Output Total 900 400 Balance 254 140 Weight 71.6 kg Intake: Intake, IV Titration 400 Amount Sodium Ferric Gluconat- 100 Sucrose 125 mg In Sodium Chloride 0.9% 100 ml @ 100 mls/hr IVPB DAILY [facility] Rx#:[id number] cefTRIAXone 1 gm In 50 Sodium Chloride 0.9% 50 ml @ 100 mls/hr IVPB Q24HR [facility] Rx#:[id number] methylPREDNISolone SOD 250 SUCCIN 1,000 mg In Sodium Chloride 0.9% 250 ml @ 250 mls/hr IVPB DAILY@ 1800 [facility] Rx#:[id number] Oral 354 540 Hemodialysis 400 Output: Urine 400 Hemodialysis 900 Other: Voiding Method Toilet Toilet Toilet # Voids 0 - Labs CBC & Chem 7: 07/04/23 05:56 07/04/23 05:56 Labs: Abnormal Lab Results - Last 24 Hours (Table) 07/03/23 07/03/23 07/04/23 Range/Units 16:31 20:24 05:56 WBC 20.2 H (3.8-10.6) k/uL RBC 2.94 L (3.80-5.40) m/uL Hgb 7.8 L (11.4-16.0) gm/dL Hct 25.5 L (34.0-46.0) % MCHC 30.5 L (31.0-37.0) g/dL Plt Count 473 H (150-450) k/uL Neutrophils # 18.3 H (1.3-7.7) k/uL Sodium (137-145) mmol/L Chloride (98-107) mmol/L BUN (7-17) mg/dL Creatinine (0.52-1.04) mg/dL Glucose (74-99) mg/dL POC Glucose (mg/dL) 212 H 136 H (70-110) mg/dL Calcium (8.4-10.2) mg/dL Alkaline Phosphatase (38-126) U/L Total Protein (6.3-8.2) g/dL Albumin (3.5-5.0) g/dL 07/04/23 07/04/23 07/04/23 Range/Units 05:56 06:12 11:29 WBC (3.8-10.6) k/uL RBC (3.80-5.40) m/uL Hgb (11.4-16.0) gm/dL Hct (34.0-46.0) % MCHC (31.0-37.0) g/dL Plt Count (150-450) k/uL Neutrophils # (1.3-7.7) k/uL Sodium 131 L (137-145) mmol/L Chloride 93 L (98-107) mmol/L BUN 30 H (7-17) mg/dL Creatinine 3.38 H (0.52-1.04) mg/dL Glucose 123 H (74-99) mg/dL POC Glucose (mg/dL) 136 H 143 H (70-110) mg/dL Calcium 8.0 L (8.4-10.2) mg/dL Alkaline Phosphatase 130 H (38-126) U/L Total Protein 5.8 L (6.3-8.2) g/dL Albumin 2.8 L (3.5-5.0) g/dL
[2023-07-04] MEDS: ALPRAZolam 0.25 MG TAB PO PRN (15:59)
--- NOTE | 2023-07-04 16:11 | XR ---
EXAMINATION TYPE: XR chest 1V DATE OF EXAM: 07/04/2023 4:06 PM CLINICAL INDICATION:Female, 62 years old with history of short of breathe; COMPARISON: Chest radiographs from 07/02/2023 TECHNIQUE: XR chest 1V Frontal view of the chest. FINDINGS: Lungs/Pleura: Prominent interstitial lung markings are seen scattered throughout the lungs with megan ening of the diaphragm and increased lucency of the lung apices. No evidence of focal consolidation, pneumothorax or pleural effusion. Pulmonary vascularity: Unremarkable. Heart/mediastinum: Cardiomediastinal silhouette is unremarkable. Musculoskeletal: No acute osseous pathology. Other findings: None Lines/Tubes: Right internal jugular central venous catheter with distal tip at the cavoatrial junction. IMPRESSION: 1. Chronic changes without acute pulmonary process. No significant change from prior. 2. Appropriate placement of right internal jugular central venous catheter.
[2023-07-04 16:43] LABS: Glucose,Whole Blood 135 mg/dL (70-110)
[2023-07-04] MEDS: HYDROmorphone 0.5 MG/0.5 ML SYRINGE IVP PRN (16:53)
[2023-07-04 17:43] LABS: ABG Base Excess 2.5 mmol/L; ABG HCO3 29 mmol/L (21-25); ABG Oxygen Saturation 96.8 % (94-97); ABG PCO2 54 mmHg (35-45); ABG PH 7.33 (7.35-7.45); ABG PO2 85 mmHg (83-108); ABG TCO2 30 mmol/L (19-24); Allen Test Performed? Yes
[2023-07-04] MEDS ORDERED: HEPARIN SODIUM 1,000 UN/ML (10ML VL) IV PRN (18:20)
[2023-07-04] MEDS: HEPARIN SODIUM 1,000 UN/ML (10ML VL) IV ONE (18:32)
[2023-07-04] MEDS: HEPARIN SOD,PORK IN 0.45% NACL 25,000 UNIT in 0.45% NACL 1 250ML.BAG IV SCH (18:34)
[2023-07-04 18:47] LABS: Basophils % (A) 0 %; Eosinophils % (A) 0 %; HCT 28.2 % (34.0-46.0); HGB 8.2 gm/dL (11.4-16.0); Hypochromasia Marked; Lymphocytes % (A) 4 %; MCH 26.2 pg (25.0-35.0); MCHC 29.1 g/dL (31.0-37.0); Mean Platelet Volume 7.6; Monocytes # (A) 0.7 k/uL (0-1.0); Monocytes % (A) 3 %; Neutrophils # (A) 20.9 k/uL (1.3-7.7); Neutrophils % (A) 92 %; Platelet Count 497 k/uL (150-450); RBC 3.13 m/uL (3.80-5.40); RDW 15.3 % (11.5-15.5); WBC 22.8 k/uL (3.8-10.6)
[2023-07-04 18:52] LABS: INR 1.1 (<1.2); Partial Thromboplastin Time 29.1 sec (22.0-30.0); Prothrombin Time 11.8 sec (10.0-12.5)
[2023-07-04 20:45] LABS: Glucose,Whole Blood 165 mg/dL (70-110)
[2023-07-05] MEDS ORDERED: ONDANSETRON 4 MG/2 ML VIAL IVP ONE (06:00)
[2023-07-05] MEDS ORDERED: DEXAMETHASONE SOD PHOSPHATE 4 MG/ML 1 ML VIAL IV ONE (06:00)
[2023-07-05 06:20] LABS: Glucose,Whole Blood 82 mg/dL (70-110)
[2023-07-05] MEDS: LACTATED RINGERS 1,000 ML IV SCH (06:31)
[2023-07-05] MEDS: METOPROLOL TARTRATE 5 MG/5 ML VIAL IVP PRN (08:24)
--- NOTE | 2023-07-05 08:35 | P.CRDCN ---
History of Present Illness History of present illness: HISTORY OF PRESENT ILLNESS: This is a 62-year-old female with a past medical history significant for COPD and nicotine dependence. Patient does not follow with a machine stuffer automatic. We have been asked to see the patient in consultation for elevated troponin. Patient examined at the bedside. Patient states she presented to the hospital with a chief complaint of generalized weakness and muscle aches for the past month. She also reports over the past week she has had decreased oral intake and dry heaves. She denied having any chest pain or pressure. Denied any shortness of breath. The patient was found to be in acute renal failure upon admission with a creatinine of 7.02. Patient did receive a hemodialysis catheter and has been started on hemodialysis. Patients CANCA was found to be positive. She is scheduled to undergo a kidney biopsy today and also a biopsy of of her left foot lesion with general surgery. At the time of examination, the patient complains of nausea. She continues to have dry heaves with a emesis basin in front of her. She reports epigastric pain that has been ongoing for the past week that occurs after she has an episode of dry heaves. Overnight the patient had an episode of SVT. She does report feeling palpitations. She states after an episode of palpitations she begins to feel nauseated and then has dry heaves. She was given a dose of antianxiety medications. Remote telemetry this morning reveals sinus tachycardia with a heart rate between [id number]. Blood pressure is stable. Patient was also found to have an elevated D-dimer of 6.28. She underwent VQ scan this morning. Results are currently pending. She remains on IV heparin. DIAGNOSTICS: - EKG on admission reveals sinus mechanism with no signs of acute ischemia. Repeat EKG overnight reveals SVT. - Chest xray chronic changes without acute pulmonary process. No significant change from prior. Appropriate placement of right internal jugular central venous catheter. - Laboratory data: WBC 22.8. Hemoglobin 8.2. Platelet count 497. D-dimer 6.28. Sodium 131. Potassium 4.2. BUN 30. Creatinine 3.38. Troponin 0.116. - Current home cardiac medications include none REVIEW OF SYSTEMS: At the time of my exam: CONSTITUTIONAL: Denies fever or chills. HEENT: Denies blurred vision, vision changes, or eye pain. Denies hemoptysis CARDIOVASCULAR: Reports epigastric pain. Denies orthopnea. Denies PND. Denies palpitations RESPIRATORY: Denies shortness of breath. GASTROINTESTINAL: Denies abdominal pain. Reports nausea and vomiting. HEMATOLOGIC: Denies bleeding disorders. GENITOURINARY: Denies any blood in urine. SKIN: Denies pruitis. Denies rash. PHYSICAL EXAM: VITAL SIGNS: Reviewed. GENERAL: Well-developed in no acute distress. HEENT: Head is normocephalic. Pupils are equal, round. Sclerae anicteric. Mucous membranes of the mouth are moist. Neck supple. No JVD or thyromegaly LUNGS: Respirations even and unlabored. Lungs essentially clear to auscultation bilaterally. HEART: Regular rate and rhythm. S1 and S2 heard. ABDOMEN: Soft. Nondistended. Nontender. EXTREMITIES: Normal range of motion. No clubbing or cyanosis. Peripheral pulses intact. No lower extremity edema NEUROLOGIC: Awake and alert. Oriented x 3. ASSESSMENT: Generalized weakness and muscle aches, x 1 month Nausea and dry heaves Acute renal failure requiring hemodialysis CANCA positive Elevated D-dimer, rule out pulmonary embolism Skin lesions with concerns for vasculitis Elevated troponin, suspect secondary to acute renal failure, type I AL less likely Paroxysmal SVT Sinus tachycardia COPD Nicotine dependence PLAN: Trend troponins Continue IV heparin Await results of VQ scan Begin metoprolol 25 mg twice a day Add IV push metoprolol PRN if patient unable to take oral medications due to nausea and dry heaves Check TSH Continue telemetry monitoring Obtain 2D echo to assess cardiac structure and function Further recommendations pending patient course Nurse practitioner note has been reviewed by physician. Signing provider agrees with the documented findings, assessment, and plan of care documented by INSTRUCTIONAL TECHNOLOGY COORDINATOR as a scribe. Past Medical History Past Medical History: COPD History of Any Multi-Drug Resistant Organisms: None Reported Past Psychological History: No Psychological Hx Reported Smoking Status: Former smoker Medications and Allergies Home Medications Medication Instructions Recorded Confirmed Type Albuterol Sulfate [Ventolin HFA] 2 puff INHALATION RT-Q6H PRN 06/29/23 06/29/23 History Cholecalciferol [Vitamin D3 (25 25 mcg PO DAILY 06/29/23 06/29/23 History Mcg = 1000 Iu)] Cyanocobalamin (Vitamin B-12) 1,000 mcg PO DAILY 06/29/23 06/29/23 History [Vitamin B-12] Fluticasone/Umeclidin/Vilanter 1 puff INHALATION RT-DAILY 06/29/23 06/29/23 History [Trelegy Ellipta 200-62.5-25] Multivit-Min/FA/Lycopen/Lutein 1 tab PO DAILY 06/29/23 06/29/23 History [Centrum Silver Tablet] Allergies Allergy/AdvReac Type Severity Reaction Status Date / Time No Known Allergies Allergy Verified 06/29/23 14:45 Physical Exam Vitals: Vital Signs Temp Pulse Pulse Resp BP Pulse Ox 07/05/23 04:00 132 H 22 129/89 96 07/05/23 02:00 102 H 24 07/05/23 00:00 181 H 24 181/96 95 07/04/23 21:44 80 07/04/23 21:32 75 07/04/23 20:00 118 H 22 135/79 95 07/04/23 17:06 147 H 153/104 07/04/23 15:55 84 07/04/23 15:45 98.2 F 116 H 24 183/96 91 L 07/04/23 15:41 80 07/04/23 11:53 97.9 F 76 20 170/78 91 L 07/04/23 08:24 76 07/04/23 08:14 76 07/04/23 08:00 97.7 F 68 20 168/84 99 Intake and Output 07/04/23 07/05/23 07/05/23 22:59 06:59 14:59 Intake Total 150 102.889 Balance 150 102.889 Intake: Intake, IV Titration 150 102.889 Amount Heparin Sod,Pork in 0.45% 102.889 NaCl 25,000 unit In 0.45 % NaCl 1 250ml.bag @ 18 UNITS/KG/HR 12.888 mls/hr IV .[id number] [facility] Rx#: [id number] Sodium Ferric Gluconat- 100 Sucrose 125 mg In Sodium Chloride 0.9% 100 ml @ 100 mls/hr IVPB DAILY [facility] Rx#:[id number] cefTRIAXone 1 gm In 50 Sodium Chloride 0.9% 50 ml @ 100 mls/hr IVPB Q24HR [facility] Rx#:[id number] Other: Voiding Method Toilet Toilet # Voids 2 Results 07/04/23 17:17 07/04/23 05:56 Cardiac Enzymes 07/04/23 Range/Units 18:01 Troponin I 0.116 H* (0.000-0.034) ng/mL Coagulation 07/04/23 07/05/23 Range/Units 17:17 00:01 PT 11.8 (10.0-12.5) sec APTT 29.1 151.5 H* (22.0-30.0) sec CBC 07/04/23 Range/Units 17:17 WBC 22.8 H (3.8-10.6) k/uL RBC 3.13 L (3.80-5.40) m/uL Hgb 8.2 L (11.4-16.0) gm/dL Hct 28.2 L (34.0-46.0) % Plt Count 497 H (150-450) k/uL Current Medications Generic Name Dose Route Start Last Admin Trade Name Freq PRN Reason Stop Dose Admin Hydrocodone Bitart/Acetaminophen 1 each 06/30/23 11:06 07/05/23 00:17 Hydrocodone/Apap 5-325mg 1 Each Tab PO 1 each Q6HR PRN Administration Pain Albuterol/Ipratropium 3 ml 07/02/23 20:00 07/04/23 21:31 Ipratropium-Albuterol 3 Ml Neb INHALATION 3 ml RT-QID [facility] Administration Albuterol/Ipratropium 3 ml 07/02/23 16:23 Ipratropium-Albuterol 3 Ml Neb INHALATION RT-Q2H PRN Shortness Of Breath Or Wheezing Alprazolam 0.25 mg 07/04/23 15:48 07/05/23 00:16 Alprazolam 0.25 Mg Tab PO 0.25 mg QID PRN Administration Anxiety Dextrose/Water 25 ml 07/02/23 15:40 Dextrose 50% Syringe 50 Ml IVP PER PROTOCOL PRN Hypoglycemia Protocol Dextrose/Water 50 ml 07/02/23 15:40 Dextrose 50% Syringe 50 Ml IVP PER PROTOCOL PRN Hypoglycemia Protocol Heparin Sodium (Porcine) 0 unit 07/04/23 18:20 Heparin Sodium 1,000 Un/Ml (10ml Vl) IV PER PROTOCOL PRN Low PTT Protocol Hydromorphone HCl 0.5 mg 07/02/23 10:13 07/05/23 06:23 Hydromorphone 0.5 Mg/0.5 Ml Syringe IVP 0.5 mg Q3HR PRN Administration Pain Ceftriaxone Sodium 1 gm/ 50 mls @ 100 mls/hr 07/01/23 09:00 07/04/23 08:41 Sodium Chloride IVPB 100 mls/hr Q24HR [facility] Administration Protocol Desmopressin Acetate 18 mcg/ 54.5 mls @ 200 mls/hr 07/05/23 09:00 Sodium Chloride IVPB 07/05/23 09:16 ONCE ONE Lactated Ringer's 1,000 mls @ 20 mls/hr 07/05/23 06:00 07/05/23 06:31 Lactated Ringers IV 20 mls/hr .Q24H [facility] Administration Heparin Sodium/Sodium Chloride 250 mls @ 12.888 mls/hr 07/04/23 18:30 07/05/23 04:02 25,000 unit/ Sodium Chloride IV 15 units/kg/hr .[id number] [facility] 10.74 mls/hr Titration Protocol 18 UNITS/KG/HR Insulin Aspart 0 unit 07/02/23 17:30 07/04/23 21:57 Insulin Aspart (Novolog) 100 Unit/Ml Vial SQ 2 unit ACHS [facility] Administration Protocol Ondansetron HCl 4 mg 06/30/23 16:05 07/05/23 06:24 Ondansetron 4 Mg/2 Ml Vial IVP 4 mg Q6HR PRN Administration Nausea And Vomiting Pantoprazole Sodium 40 mg 07/01/23 07:30 07/05/23 06:27 Pantoprazole 40 Mg Tablet PO 40 mg [id number] [facility] Administration Prochlorperazine Edisylate 5 mg 07/02/23 09:34 07/02/23 22:14 Prochlorperazine Inj 10 Mg/2 Ml Vial IVP 5 mg Q4HR PRN Administration Nausea And Vomiting Intake and Output 07/04/23 07/05/23 07/05/23 22:59 06:59 14:59 Intake Total 150 102.889 Balance 150 102.889 Intake: Intake, IV Titration 150 102.889 Amount Heparin Sod,Pork in 0.45% 102.889 NaCl 25,000 unit In 0.45 % NaCl 1 250ml.bag @ 18 UNITS/KG/HR 12.888 mls/hr IV .[id number] [facility] Rx#: [id number] Sodium Ferric Gluconat- 100 Sucrose 125 mg In Sodium Chloride 0.9% 100 ml @ 100 mls/hr IVPB DAILY [facility] Rx#:[id number] cefTRIAXone 1 gm In 50 Sodium Chloride 0.9% 50 ml @ 100 mls/hr IVPB Q24HR [facility] Rx#:[id number] Other: Voiding Method Toilet Toilet # Voids 2 07/04/23 17:17 07/04/23 05:56
--- NOTE | 2023-07-05 08:37 | P.PN ---
Subjective Progress Note Date: 07/04/23 Principal diagnosis: Reason for follow-up is rash and leukocytosis Patient is a 62-year female presented to hospital with muscle weakness fatigue has been diagnosed with acute renal failure also have a rash concerning for vasculitis versus infectious etiology prompting this consultation. On today's evaluation that is 07/04/2023, patient has been afebrile, patient is breathing comfortably and is currently on 5 L nasal cannula oxygen, patient denies having any significant cough no chest pain shortness of breath, patient denies nausea vomiting or diarrhea and no abdominal pain, no new rash reported. Patient white count is up to 22.8 creatinine is 3.38 Objective - Vital Signs Vital signs: Vital Signs Temp 97.9 F 07/04/23 11:53 Pulse 76 07/04/23 11:53 Resp 20 07/04/23 11:53 BP 170/78 07/04/23 11:53 Pulse Ox 91 L 07/04/23 11:53 FiO2 Intake & Output 07/03/23 07/04/23 07/04/23 18:59 06:59 18:59 Intake Total 1154 540 240 Output Total 900 400 Balance 254 140 240 Weight 71.6 kg Intake: Intake, IV Titration 400 Amount Sodium Ferric Gluconat- 100 Sucrose 125 mg In Sodium Chloride 0.9% 100 ml @ 100 mls/hr IVPB DAILY [facility] Rx#:[id number] cefTRIAXone 1 gm In 50 Sodium Chloride 0.9% 50 ml @ 100 mls/hr IVPB Q24HR [facility] Rx#:[id number] methylPREDNISolone SOD 250 SUCCIN 1,000 mg In Sodium Chloride 0.9% 250 ml @ 250 mls/hr IVPB DAILY@ 1800 [facility] Rx#:[id number] Oral 354 540 240 Hemodialysis 400 Output: Urine 400 Hemodialysis 900 Other: Voiding Method Toilet Toilet Toilet # Voids 0 2 - Exam GENERAL DESCRIPTION: Middle-aged female lying in bed in no distress RESPIRATORY SYSTEM: Unlabored breathing , decreased breath sounds at bases HEART: S1 S2 regular rate and rhythm , ABDOMEN: Soft , no tenderness EXTREMITIES: No edema feet - Labs CBC & Chem 7: 07/04/23 17:17 07/04/23 05:56 Labs: Abnormal Lab Results - Last 24 Hours (Table) 07/03/23 07/03/23 07/04/23 Range/Units 16:31 20:24 05:56 WBC 20.2 H (3.8-10.6) k/uL RBC 2.94 L (3.80-5.40) m/uL Hgb 7.8 L (11.4-16.0) gm/dL Hct 25.5 L (34.0-46.0) % MCHC 30.5 L (31.0-37.0) g/dL Plt Count 473 H (150-450) k/uL Neutrophils # 18.3 H (1.3-7.7) k/uL Sodium (137-145) mmol/L Chloride (98-107) mmol/L BUN (7-17) mg/dL Creatinine (0.52-1.04) mg/dL Glucose (74-99) mg/dL POC Glucose (mg/dL) 212 H 136 H (70-110) mg/dL Calcium (8.4-10.2) mg/dL Alkaline Phosphatase (38-126) U/L Total Protein (6.3-8.2) g/dL Albumin (3.5-5.0) g/dL 07/04/23 07/04/23 07/04/23 Range/Units 05:56 06:12 11:29 WBC (3.8-10.6) k/uL RBC (3.80-5.40) m/uL Hgb (11.4-16.0) gm/dL Hct (34.0-46.0) % MCHC (31.0-37.0) g/dL Plt Count (150-450) k/uL Neutrophils # (1.3-7.7) k/uL Sodium 131 L (137-145) mmol/L Chloride 93 L (98-107) mmol/L BUN 30 H (7-17) mg/dL Creatinine 3.38 H (0.52-1.04) mg/dL Glucose 123 H (74-99) mg/dL POC Glucose (mg/dL) 136 H 143 H (70-110) mg/dL Calcium 8.0 L (8.4-10.2) mg/dL Alkaline Phosphatase 130 H (38-126) U/L Total Protein 5.8 L (6.3-8.2) g/dL Albumin 2.8 L (3.5-5.0) g/dL Assessment and Plan (1) Rash Current Visit: Yes Status: Acute Code(s): R21 - RASH AND OTHER NONSPECIFIC S KIN ERUPTION SNOMED Code(s): 149626514 (2) Leukocytosis Current Visit: Yes Status: Acute Code(s): D72.829 - ELEVATED WHITE BLOOD CELL COUNT, UNSPECIFIED SNOMED Code(s): 512259615 Plan: 1patient did have a very mild petechial rash to the lower extremity in this patient admitted to hospital with generalized weakness fatigue and acute renal failure clinical suspicion low for any infectious etiology 2-did have a positive UA however culture has been negative 3-leukocytosis possibly related to dexamethasone and will be monitored closely 4-await biopsy that will help in the diagnosis and monitor clinical course close ly Dictation was produced using [employer] dictation software. please excuse any grammatical, word or spelling errors. Time with Patient: Less than 30
--- NOTE | 2023-07-05 08:42 | NM ---
EXAMINATION TYPE: NM pul perfusion DATE OF EXAM: 07/05/2023 COMPARISON: 07/04/2023 CLINICAL INDICATION: Female, 62 years old with history of rule out PE; Following administration of 5.1 mCi Tc 99m MAA. Images obtained post injection. FINDINGS: No ventilation images are submitted. There are multifocal areas of reduced uptake with the largest se en involving the left midlung stent into the pleura. No corresponding chest x-ray abnormality. IMPRESSION: Multiple perfusion defects with a larger peripheral based defects seen within the left midlung. A pul monary embolism would be in the differential diagnosis.
[2023-07-05] MEDS ORDERED: DESMOPRESSIN ACETATE 18 MCG in SODIUM CHLORIDE 0.9% 50 ML IVPB ONE (09:00)
[2023-07-05 09:33] LABS: Basophils % (A) 0 %; Eosinophils % (A) 0 %; HCT 26.6 % (34.0-46.0); Hypochromasia Marked; Lymphocytes # (A) 1.5 k/uL (1.0-4.8); Lymphocytes % (A) 6 %; MCHC 30.2 g/dL (31.0-37.0); MCV 89.5 fL (80.0-100.0); Mean Platelet Volume 7.6; Monocytes % (A) 4 %; Neutrophils # (A) 23.5 k/uL (1.3-7.7); Neutrophils % (A) 90 %; Platelet Count 436 k/uL (150-450); RBC 2.97 m/uL (3.80-5.40); RDW 15.5 % (11.5-15.5); WBC 26.1 k/uL (3.8-10.6)
--- NOTE | 2023-07-05 10:19 | US ---
EXAMINATION TYPE: US venous doppler duplex LE DATE OF EXAM: 07/05/2023 10:07 AM COMPARISON: NONE CLINICAL INDICATION: Female, 62 years old with history of r.o DVT; Pain and swelling x 1 month. No hx of DVT. Patient on Heparin. SIDE PERFORMED: Bilateral TECHNIQUE: The lower extremity deep venous system is examined utilizing real time linear array sonog alaina with graded compression, doppler sonography and color-flow sonography. VESSELS IMAGED: Common Femoral Vein Deep Femoral Vein Greater Saphenous Vein * Femoral Vein Popliteal Vein Small Saphenous Vein * Proximal Calf Veins (* superficial vessels) Right Leg: Complex area seen medial right knee: 5.0 x 2.1 x 1.8 cm. No evidence of DVT. Left Leg: Noncompressible vein seen within the left calf. Color flow not seen within. Area appears t o branch from one of the left peroneal deep veins, however limited visibility. Vein is near PTV and P eroneal veins. Probable DVT. Anechoic area seen medial left knee: 3.3 x 3.3 x 1.0 cm. IMPRESSION: 1. Findings are suspicious for a small left peroneal DVT. See above. 2. Complex collection medial right knee measuring 5 cm may represent complex popliteal fossa cyst. Ot her etiologies not excluded consider follow-up MRI. 3. Left popliteal fossa cyst.
[2023-07-05 10:47] LABS: ALT 40 U/L (4-34); AST 98 U/L (14-36); African American GFR (CKD) 10 (>60 ml/min/1.73 sqM); Albumin 3.2 g/dL (3.5-5.0); Alkaline Phosphatase 132 U/L (38-126); Anion Gap 19 mmol/L; Blood Urea Nitrogen 48 mg/dL (7-17); Calcium 8.3 mg/dL (8.4-10.2); Carbon Dioxide 21 mmol/L (22-30); Chloride 91 mmol/L (98-107); Glucose 79 mg/dL (74-99); Non-African American GFR(CKD) 8 (>60 ml/min/1.73 sqM); Potassium 4.5 mmol/L (3.5-5.1); Sodium 131 mmol/L (137-145); Total Bilirubin 0.6 mg/dL (0.2-1.3)
[2023-07-05 11:22] LABS: Glucose,Whole Blood 89 mg/dL (70-110)
--- NOTE | 2023-07-05 11:27 | P.PN ---
Subjective patient is seen for follow-up for acute kidney injury. 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 Status post IV steroids. Started hemodialysis on 07/01/2023 for progressive acute kidney injury. Patient developed worsening shortness of breath and had a VQ scan performed this morning which showed high likelihood for PE. Currently patient is maintained on IV heparin. Heart rate was also elevated up to 125-132 and patient received IV Lopressor. Heart rate has improved now. Kidney biopsy was canceled today as patient was unstable from radiology standpoint. Scheduled for hemodialysis in a.m. Objective - Vital Signs Vital signs: Vital Signs Temp 98.2 F 07/04/23 15:45 Pulse 80 07/05/23 09:08 Resp 20 07/05/23 08:00 BP 154/99 07/05/23 08:00 Pulse Ox 95 07/05/23 08:00 FiO2 Intake & Output 07/04/23 07/05/23 07/05/23 18:59 06:59 18:59 Intake Total 390 102.889 Balance 390 102.889 Intake: Intake, IV Titration 150 102.889 Amount Heparin Sod,Pork in 0.45% 102.889 NaCl 25,000 unit In 0.45 % NaCl 1 250ml.bag @ 18 UNITS/KG/HR 12.888 mls/hr IV .[id number] [facility] Rx#: [id number] Sodium Ferric Gluconat- 100 Sucrose 125 mg In Sodium Chloride 0.9% 100 ml @ 100 mls/hr IVPB DAILY [facility] Rx#:[id number] cefTRIAXone 1 gm In 50 Sodium Chloride 0.9% 50 ml @ 100 mls/hr IVPB Q24HR [facility] Rx#:[id number] Oral 240 Other: Voiding Method Toilet Toilet Toilet # Voids 2 0 - Exam Patient is currently having an echocardiogram done. She is sleepy but arousable. No acute distress Examination of the heart S1 and S2 Examination of the lungs bilateral breath sounds are heard Abdomen is soft nontender Examination of lower extremity shows no significant edema. - Labs CBC & Chem 7: 07/05/23 08:09 07/05/23 08:08 Labs: Abnormal Lab Results - Last 24 Hours (Table) 07/04/23 07/04/23 07/04/23 Range/Units 11:29 16:35 17:17 WBC (3.8-10.6) k/uL RBC (3.80-5.40) m/uL Hgb (11.4-16.0) gm/dL Hct (34.0-46.0) % MCHC (31.0-37.0) g/dL Plt Count (150-450) k/uL Neutrophils # (1.3-7.7) k/uL APTT (22.0-30.0) sec D-Dimer 6.28 H (<0.60) mg/L FEU ABG pH (7.35-7.45) ABG pCO2 (35-45) mmHg ABG HCO3 (21-25) mmol/L ABG Total CO2 (19-24) mmol/L Sodium (137-145) mmol/L Chloride (98-107) mmol/L Carbon Dioxide (22-30) mmol/L BUN (7-17) mg/dL Creatinine (0.52-1.04) mg/dL POC Glucose (mg/dL) 143 H 135 H (70-110) mg/dL Calcium (8.4-10.2) mg/dL AST (14-36) U/L ALT (4-34) U/L Alkaline Phosphatase (38-126) U/L Troponin I (0.000-0.034) ng/mL Total Protein (6.3-8.2) g/dL Albumin (3.5-5.0) g/dL 07/04/23 07/04/23 07/04/23 Range/Units 17:17 17:39 18:01 WBC 22.8 H (3.8-10.6) k/uL RBC 3.13 L (3.80-5.40) m/uL Hgb 8.2 L (11.4-16.0) gm/dL Hct 28.2 L (34.0-46.0) % MCHC 29.1 L (31.0-37.0) g/dL Plt Count 497 H (150-450) k/uL Neutrophils # 20.9 H (1.3-7.7) k/uL APTT (22.0-30.0) sec D-Dimer (<0.60) mg/L FEU ABG pH 7.33 L (7.35-7.45) ABG pCO2 54 H (35-45) mmHg ABG HCO3 29 H (21-25) mmol/L ABG Total CO2 30 H (19-24) mmol/L Sodium (137-145) mmol/L Chloride (98-107) mmol/L Carbon Dioxide (22-30) mmol/L BUN (7-17) mg/dL Creatinine (0.52-1.04) mg/dL POC Glucose (mg/dL) (70-110) mg/dL Calcium (8.4-10.2) mg/dL AST (14-36) U/L ALT (4-34) U/L Alkaline Phosphatase (38-126) U/L Troponin I 0.116 H* (0.000-0.034) ng/mL Total Protein (6.3-8.2) g/dL Albumin (3.5-5.0) g/dL 07/04/23 07/05/23 07/05/23 Range/Units 20:29 00:01 08:08 WBC (3.8-10.6) k/uL RBC (3.80-5.40) m/uL Hgb (11.4-16.0) gm/dL Hct (34.0-46.0) % MCHC (31.0-37.0) g/dL Plt Count (150-450) k/uL Neutrophils # (1.3-7.7) k/uL APTT 151.5 H* (22.0-30.0) sec D-Dimer (<0.60) mg/L FEU ABG pH (7.35-7.45) ABG pCO2 (35-45) mmHg ABG HCO3 (21-25) mmol/L ABG Total CO2 (19-24) mmol/L Sodium 131 L (137-145) mmol/L Chloride 91 L (98-107) mmol/L Carbon Dioxide 21 L (22-30) mmol/L BUN 48 H (7-17) mg/dL Creatinine 5.11 H (0.52-1.04) mg/dL POC Glucose (mg/dL) 165 H (70-110) mg/dL Calcium 8.3 L (8.4-10.2) mg/dL AST 98 H (14-36) U/L ALT 40 H (4-34) U/L Alkaline Phosphatase 132 H (38-126) U/L Troponin I (0.000-0.034) ng/mL Total Protein 6.0 L (6.3-8.2) g/dL Albumin 3.2 L (3.5-5.0) g/dL 07/05/23 07/05/23 07/05/23 Range/Units 08:08 08:09 08:09 WBC 26.1 H (3.8-10.6) k/uL RBC 2.97 L (3.80-5.40) m/uL Hgb 8.0 L (11.4-16.0) gm/dL Hct 26.6 L (34.0-46.0) % MCHC 30.2 L (31.0-37.0) g/dL Plt Count (150-450) k/uL Neutrophils # 23.5 H (1.3-7.7) k/uL APTT 113.7 H* (22.0-30.0) sec D-Dimer (<0.60) mg/L FEU ABG pH (7.35-7.45) ABG pCO2 (35-45) mmHg ABG HCO3 (21-25) mmol/L ABG Total CO2 (19-24) mmol/L Sodium (137-145) mmol/L Chloride (98-107) mmol/L Carbon Dioxide (22-30) mmol/L BUN (7-17) mg/dL Creatinine (0.52-1.04) mg/dL POC Glucose (mg/dL) (70-110) mg/dL Calcium (8.4-10.2) mg/dL AST (14-36) U/L ALT (4-34) U/L Alkaline Phosphatase (38-126) U/L Troponin I 2.390 H* (0.000-0.034) ng/mL Total Protein (6.3-8.2) g/dL Albumin (3.5-5.0) g/dL Microbiology - Last 24 Hours (Table) 06/29/23 22:25 Blood Culture - Final Blood Assessment and Plan Assessment: 1. 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 No hydronephrosis noted on kidney ultrasound. Creatinine 8.13 dated July 01, 2023. Creatinine 0.8 in January 2023. UA does show 1+ protein and RBCs as well as RBC casts. Repeat UA shows protein and blood as well. UPC 1.44 g. Started on hemodialysis on 07/01/2023. Scheduled for hemodialysis in a.m. Status post Solu-Medrol over the weekend. Kidney biopsy which was scheduled for today has been canceled as patient was unstable. 2. Metabolic acidosis secondary to acute kidney injury. status post bicarb drip. improved with hemodialysis 3. Anemia. Iron deficiency noted. 4. SVT being followed by cardiology, improved with IV Lopressor 5. High suspicion for PE left lung, maintained on IV heparin. Small left leg DVT noted on venous Dopplers. Plan: start oral prednisone Consult rheumatology Hemodialysis in a.m. Recommend to transfer patient to tertiary care center. At this time there is no urgent need for plasmapheresis. A kidney biopsy however should be performed PAMELA. Discussed with Dr. Zavala and Dr. Marrero.
[2023-07-05] MEDS: METOPROLOL TARTRATE 25 MG TAB PO SCH (12:18)
[2023-07-05] MEDS: predniSONE 20 MG TAB PO SCH (12:18)
[2023-07-05] MEDS: ASPIRIN 81 MG PO SCH (12:19)
--- NOTE | 2023-07-05 13:38 | P.PN ---
Subjective Progress Note Date: 07/05/23 this is a 62-year-old female patient of Dr. Daniels who presented with complaints ofmuscle weakness and fatigue has been occurring over the past month patient reports she's had trouble completing her ADLs because of this muscle fatigue. Patient denies significant medical history except for mild COPD. Patient denies any recent illness or infection. Patient denies any change in medication. Patient denies changed diet.chest x-ray completed showing no acute cardiopulmonary disease. Renal ultrasound completed showing no evidence of hydronephrosis or shadowing calculus. labwork revealing WBC of 18.7, hemoglobin 8.4, creatinine 7.02, bun 73. UA showing small amount of leukocyte Estrace. This time blood and urine cultures will be ordered. Patient started on IV Rocephin. Patient started normal saline. Nephrology services have been consulted. repeat labs ordered On 07/01/2023 patient was seen and examined on the medical floor she is alert and oriented 3 in no apparent distress she is complaining of generalized pain and weakness otherwise she denies any complaints, she is receiving her first session of hemodialysis, there is no fever or chills no headache or dizziness no chest pain no shortness of breath no cough no nausea or vomiting no abdominal pain no diarrhea and no urinary symptoms. On 07/02/2023 patient is alert and oriented 3. Patient still complaining of significant body aches with nausea. Patient currently getting second round of hemodialysis. She reports rash possible bites and lower extremities will consult infectious disease services. lyme disease lab work ordered. Nephrology services ordering for kidney biopsy.Current vital signs temp 98.1, heart rate 78, respiratory rate 16, blood pressure 131/67 with a pulse ox 92% on room air. On 07/03/2023 patient was seen and examined on the medical floor she is alert alert and oriented 3 in no apparent distress, of generalized body ache and weakness, otherwise she denies any complaints there is no fever or chills no headache or dizziness no chest pain no shortness of breath no cough no nausea or vomiting no abdominal pain no diarrhea and no urinary symptoms vital examination reveals a temperature of 97.9 pulse 72 respiration 20 blood pressure 144/72 pulse ox 97% on 3 L nasal cannula. 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 on 07/04/2023 patient's alert and oriented 3. Patient still complaining of generalized ache and weakness current vital signs temp 97.7, heart rate 68, respiratory rate 20, blood pressure 168/84 and pulse ox 99% on 3 L. patient remains on IV Solu-Medrol. Nephrology, infectious disease, surgical critical care services are following. On 07/05/2023 patient was seen and examined on the telemetry floor, she is alert and oriented 3 in no apparent distress, last night she had an episode of worsening shortness of breath, chest x-ray d-dimer and arterial blood gas were done, d-dimer was elevated significantly, she was started on IV heparin, VQ scan was done and was positive for pulmonary embolism, patient was continued on high intensity IV heparin protocol, troponin level were also slightly elevated yesterday, pulmonary consultation and cardiology consultation were added, today case was discussed in details with cardiology and with nephrology, and the recommendation is to transfer patient to a tertiary care center, kidney biopsy was canceled for this morning, patient remains on IV Solu-Medrol and IV heparin protocol. Objective - Vital Signs Vital signs: Vital Signs Temp 98.2 F 07/04/23 15:45 Pulse 80 07/05/23 09:08 Resp 20 07/05/23 08:00 BP 154/99 07/05/23 08:00 Pulse Ox 95 07/05/23 08:00 FiO2 Intake & Output 07/04/23 07/05/23 07/05/23 18:59 06:59 18:59 Intake Total 390 102.889 Balance 390 102.889 Intake: Intake, IV Titration 150 102.889 Amount Heparin Sod,Pork in 0.45% 102.889 NaCl 25,000 unit In 0.45 % NaCl 1 250ml.bag @ 18 UNITS/KG/HR 12.888 mls/hr IV .[id number] [facility] Rx#: [id number] Sodium Ferric Gluconat- 100 Sucrose 125 mg In Sodium Chloride 0.9% 100 ml @ 100 mls/hr IVPB DAILY [facility] Rx#:[id number] cefTRIAXone 1 gm In 50 Sodium Chloride 0.9% 50 ml @ 100 mls/hr IVPB Q24HR [facility] Rx#:[id number] Oral 240 Other: Voiding Method Toilet Toilet # Voids 2 - Exam In general patient is alert and oriented x 3 in no distress HEENT head normocephalic and atraumatic Neck is supple no JVD no goiter no lymphadenopathy no carotid bruit Chest examination is clear to auscultation no crackles no wheezing Cardiac exam reveals regular heart sounds S1 and S2 no gallops no murmurs Abdomen is soft nontender no organomegaly with normal bowel sounds Extremity exam reveals no edema no cyanosis or clubbing Neurological examination reveals no gross focal deficits - Labs CBC & Chem 7: 07/05/23 08:09 07/05/23 08:08 Labs: Abnormal Lab Results - Last 24 Hours (Table) 07/04/23 07/04/23 07/04/23 Range/Units 11:29 16:35 17:17 WBC (3.8-10.6) k/uL RBC (3.80-5.40) m/uL Hgb (11.4-16.0) gm/dL Hct (34.0-46.0) % MCHC (31.0-37.0) g/dL Plt Count (150-450) k/uL Neutrophils # (1.3-7.7) k/uL APTT (22.0-30.0) sec D-Dimer 6.28 H (<0.60) mg/L FEU ABG pH (7.35-7.45) ABG pCO2 (35-45) mmHg ABG HCO3 (21-25) mmol/L ABG Total CO2 (19-24) mmol/L POC Glucose (mg/dL) 143 H 135 H (70-110) mg/dL Troponin I (0.000-0.034) ng/mL 07/04/23 07/04/23 07/04/23 Range/Units 17:17 17:39 18:01 WBC 22.8 H (3.8-10.6) k/uL RBC 3.13 L (3.80-5.40) m/uL Hgb 8.2 L (11.4-16.0) gm/dL Hct 28.2 L (34.0-46.0) % MCHC 29.1 L (31.0-37.0) g/dL Plt Count 497 H (150-450) k/uL Neutrophils # 20.9 H (1.3-7.7) k/uL APTT (22.0-30.0) sec D-Dimer (<0.60) mg/L FEU ABG pH 7.33 L (7.35-7.45) ABG pCO2 54 H (35-45) mmHg ABG HCO3 29 H (21-25) mmol/L ABG Total CO2 30 H (19-24) mmol/L POC Glucose (mg/dL) (70-110) mg/dL Troponin I 0.116 H* (0.000-0.034) ng/mL 07/04/23 07/05/23 Range/Units 20:29 00:01 WBC (3.8-10.6) k/uL RBC (3.80-5.40) m/uL Hgb (11.4-16.0) gm/dL Hct (34.0-46.0) % MCHC (31.0-37.0) g/dL Plt Count (150-450) k/uL Neutrophils # (1.3-7.7) k/uL APTT 151.5 H* (22.0-30.0) sec D-Dimer (<0.60) mg/L FEU ABG pH (7.35-7.45) ABG pCO2 (35-45) mmHg ABG HCO3 (21-25) mmol/L ABG Total CO2 (19-24) mmol/L POC Glucose (mg/dL) 165 H (70-110) mg/dL Troponin I (0.000-0.034) ng/mL Microbiology - Last 24 Hours (Table) 06/29/23 22:25 Blood Culture - Final Blood Assessment and Plan Assessment: 1. Muscle aches and fatigue likely secondary from acute renal failure 2. Acute renal failure. 3. Leukocytosis likely secondary from UTI. Urine and blood cultures ordered 3. History of COPD DVT prophylaxis heparin. GI prophylaxis Protonix Nephrology service is consulted Blood and urine cultures ordered Patient started on IV Rocephin Infectious disease service is following Patient started on hemodialysis Further lab work ordered Repeat labs ordered
--- NOTE | 2023-07-05 13:40 | P.PN ---
Progress Note - Text Progress Note Date: 07/05/23 follow-up note on Milka Baxters On 07/05/2023 patient was seen and examined Transfer to a tertiary care facility was discussed with the patient She is agreeable to transfer to [facility] Transfer team at [facility] called and briefed about the patient's case Admission at [facility] was accepted At this time we are awaiting bed availability for transfer
--- NOTE | 2023-07-05 14:33 | P.PN ---
Subjective Progress Note Date: 07/05/23 CHIEF COMPLAINT: Weakness and muscle pain HISTORY OF PRESENT ILLNESS: Patient with skin rash bilateral feet. Concerns for vasculitis. Patient was acute kidney injury requiring hemodialysis. Patient scheduled for kidney biopsy today. However this has been postponed until patient is more stable and can be off of IV heparin for 6 hours. Patient is tachycardic with paroxysmal SVT and on IV heparin. She did have elevated troponin. She is also being worked up for possible PE and had VQ scan ordered today with results showing multiple perfusion defects within the mid lung. Pulmonary embolism would be in the differential diagnosis. Venous Doppler suspicious for small left peritoneal DVT. Afebrile. WBC 26.1 patient is being transferred to [facility] PHYSICAL EXAM: VITAL SIGNS: Reviewed. GENERAL: no acute distress. ABDOMEN: Soft. Nondistended. Nontender. ASSESSMENT: 1. Rash bilateral lower extremities. Possible vasculitis 2. Possible PE and left DVT PLAN: -Patient scheduled for skin biopsy of left foot today with Dr. Reyna if still needed -Patient being transferred to [facility] to be evaluated by tertiary care center Physician Validation Intern note has been reviewed by physician. Signing provider agrees with the documented findings, assessment, and plan of care. Objective - Vital Signs Vital signs: Vital Signs Temp 98.2 F 07/04/23 15:45 Pulse 91 07/05/23 12:00 Resp 16 07/05/23 12:00 BP 116/80 07/05/23 12:00 Pulse Ox 93 L 07/05/23 12:00 FiO2 Intake & Output 07/04/23 07/05/23 07/05/23 18:59 06:59 18:59 Intake Total 390 102.889 88.247 Balance 390 102.889 88.247 Intake: Intake, IV Titration 150 102.889 88.247 Amount Heparin Sod,Pork in 0.45% 102.889 88.247 NaCl 25,000 unit In 0.45 % NaCl 1 250ml.bag @ 18 UNITS/KG/HR 12.888 mls/hr IV .[id number] [facility] Rx#: [id number] Sodium Ferric Gluconat- 100 Sucrose 125 mg In Sodium Chloride 0.9% 100 ml @ 100 mls/hr IVPB DAILY [facility] Rx#:[id number] cefTRIAXone 1 gm In 50 Sodium Chloride 0.9% 50 ml @ 100 mls/hr IVPB Q24HR [facility] Rx#:[id number] Oral 240 Other: Voiding Method Toilet Toilet Toilet # Voids 2 0 - Labs CBC & Chem 7: 07/05/23 08:09 07/05/23 08:08 Labs: Abnormal Lab Results - Last 24 Hours (Table) 07/04/23 07/04/23 07/04/23 Range/Units 16:35 17:17 17:17 WBC 22.8 H (3.8-10.6) k/uL RBC 3.13 L (3.80-5.40) m/uL Hgb 8.2 L (11.4-16.0) gm/dL Hct 28.2 L (34.0-46.0) % MCHC 29.1 L (31.0-37.0) g/dL Plt Count 497 H (150-450) k/uL Neutrophils # 20.9 H (1.3-7.7) k/uL APTT (22.0-30.0) sec D-Dimer 6.28 H (<0.60) mg/L FEU ABG pH (7.35-7.45) ABG pCO2 (35-45) mmHg ABG HCO3 (21-25) mmol/L ABG Total CO2 (19-24) mmol/L Sodium (137-145) mmol/L Chloride (98-107) mmol/L Carbon Dioxide (22-30) mmol/L BUN (7-17) mg/dL Creatinine (0.52-1.04) mg/dL POC Glucose (mg/dL) 135 H (70-110) mg/dL Calcium (8.4-10.2) mg/dL AST (14-36) U/L ALT (4-34) U/L Alkaline Phosphatase (38-126) U/L Troponin I (0.000-0.034) ng/mL Total Protein (6.3-8.2) g/dL Albumin (3.5-5.0) g/dL 07/04/23 07/04/23 07/04/23 Range/Units 17:39 18:01 20:29 WBC (3.8-10.6) k/uL RBC (3.80-5.40) m/uL Hgb (11.4-16.0) gm/dL Hct (34.0-46.0) % MCHC (31.0-37.0) g/dL Plt Count (150-450) k/uL Neutrophils # (1.3-7.7) k/uL APTT (22.0-30.0) sec D-Dimer (<0.60) mg/L FEU ABG pH 7.33 L (7.35-7.45) ABG pCO2 54 H (35-45) mmHg ABG HCO3 29 H (21-25) mmol/L ABG Total CO2 30 H (19-24) mmol/L Sodium (137-145) mmol/L Chloride (98-107) mmol/L Carbon Dioxide (22-30) mmol/L BUN (7-17) mg/dL Creatinine (0.52-1.04) mg/dL POC Glucose (mg/dL) 165 H (70-110) mg/dL Calcium (8.4-10.2) mg/dL AST (14-36) U/L ALT (4-34) U/L Alkaline Phosphatase (38-126) U/L Troponin I 0.116 H* (0.000-0.034) ng/mL Total Protein (6.3-8.2) g/dL Albumin (3.5-5.0) g/dL 07/05/23 07/05/23 07/05/23 Range/Units 00:01 08:08 08:08 WBC (3.8-10.6) k/uL RBC (3.80-5.40) m/uL Hgb (11.4-16.0) gm/dL Hct (34.0-46.0) % MCHC (31.0-37.0) g/dL Plt Count (150-450) k/uL Neutrophils # (1.3-7.7) k/uL APTT 151.5 H* (22.0-30.0) sec D-Dimer (<0.60) mg/L FEU ABG pH (7.35-7.45) ABG pCO2 (35-45) mmHg ABG HCO3 (21-25) mmol/L ABG Total CO2 (19-24) mmol/L Sodium 131 L (137-145) mmol/L Chloride 91 L (98-107) mmol/L Carbon Dioxide 21 L (22-30) mmol/L BUN 48 H (7-17) mg/dL Creatinine 5.11 H (0.52-1.04) mg/dL POC Glucose (mg/dL) (70-110) mg/dL Calcium 8.3 L (8.4-10.2) mg/dL AST 98 H (14-36) U/L ALT 40 H (4-34) U/L Alkaline Phosphatase 132 H (38-126) U/L Troponin I 2.390 H* (0.000-0.034) ng/mL Total Protein 6.0 L (6.3-8.2) g/dL Albumin 3.2 L (3.5-5.0) g/dL 07/05/23 07/05/23 Range/Units 08:09 08:09 WBC 26.1 H (3.8-10.6) k/uL RBC 2.97 L (3.80-5.40) m/uL Hgb 8.0 L (11.4-16.0) gm/dL Hct 26.6 L (34.0-46.0) % MCHC 30.2 L (31.0-37.0) g/dL Plt Count (150-450) k/uL Neutrophils # 23.5 H (1.3-7.7) k/uL APTT 113.7 H* (22.0-30.0) sec D-Dimer (<0.60) mg/L FEU ABG pH (7.35-7.45) ABG pCO2 (35-45) mmHg ABG HCO3 (21-25) mmol/L ABG Total CO2 (19-24) mmol/L Sodium (137-145) mmol/L Chloride (98-107) mmol/L Carbon Dioxide (22-30) mmol/L BUN (7-17) mg/dL Creatinine (0.52-1.04) mg/dL POC Glucose (mg/dL) (70-110) mg/dL Calcium (8.4-10.2) mg/dL AST (14-36) U/L ALT (4-34) U/L Alkaline Phosphatase (38-126) U/L Troponin I (0.000-0.034) ng/mL Total Protein (6.3-8.2) g/dL Albumin (3.5-5.0) g/dL Microbiology - Last 24 Hours (Table) 06/29/23 22:25 Blood Culture - Final Blood
--- NOTE | 2023-07-05 15:07 | P.PN ---
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 Has been maintained on Trelegy and albuterol. She presented here to the emergency room on 06/29/2023 with a 1 month history of progressive weakness and body aches and pains. She had developed poor appetite and was not eating or drinking much she was having issues with vomiting. Initial labs revealed a white count of 18.7. Hemoglobin 9.3. Platelets 665. Sodium 136. Potassium 4.9. Bicarb 18. BUN 73 and a creatinine of 7.02. Glucose 105. Urinalysis was cloudy with moderate blood and high RBCs. Renal ultrasound revealed no significant hydronephrosis. Been seen by nephrology who felt her acute kidney injury was secondary to acute tubular necrosis. There were in the process of ruling out glomerulonephritis. The plan is for kidney biopsy on 07/05/2023. She did have a double-lumen hemodialysis catheter placed in the right internal jugular. He was initiated on hemodialysis yesterday. Work today reveals a white count of 14.0. Hemoglobin 8.3. Platelets 533. Sodium 134. Potassium 4.3. Bicarb 31. BUN 48. Creatinine 5.62. She was found to have a positive C ANCA of 1:80 ratio and high rheumatoid factor of 27. Developed increasing shortness of breath today and we are c onsulted. She is seen on the regular medical floor. She is currently resting in bed. Awake and alert in no acute distress. She is maintaining O2 saturations in the 90s on room air. He is still having 9 body aches and pains. Urine culture revealed no growth. Blood cultures revealed no growth. Been initiated on Symbicort 80, Ventolin HFA every 6 as needed. She is on ceftriaxone. She is on desmopressin. Receiving iron supplements. Heparin for DVT prophylaxis. She will get methylprednisone 1 g IV piggyback daily for 3 days. Chest x-ray reveals no acute cardiopulmonary process. CT scan of the abdomen reveals a small right pleural effusion and small volume of associated atelectasis. Diverticulosis of the sigmoid colon but no diverticulitis. Progress note dated July 03, 2023. 62-year-old female that we saw yesterday in consultation. She does have a history of COPD, and follows with a auto air conditioning apprentice in [place]. She presented to the emergency department on June 28, with weakness, body aches, and pains. The patient was noted to have a worsening renal function, rather acute, and, had hematuria. The patient had a c-ANCA performed that was positive. The patient was thought to possibly have a acute vasculitis. The c-ANCA test was positive with a titer of 1:80. The [employer] systems following the patient, was going to start the patient on high-dose Solu-Medrol, 1 g every day for 3 days. In addition, the patient is apparently scheduled to have a renal biopsy, early next week. Currently, the patient is doing reasonably well. She is on her second dose of Solu-Medrol. She is getting oxygen at 3 L by nasal cannula. She continues on Rocephin. She has got saline at KVO. She is stable from the pulmonary standpoint. Current labs include a white count 10.8, hemoglobin 8.2, hematocrit 27.2, and platelet count 475,000. Sodium 134, potassium 4.6, chloride 97, CO2 30, BUN 30, creatinine 4.14. Albumin is 2.6. Total protein is 5.4. CT of the abdomen pelvis reveals a small right pleural effusion, and evidence of diverticulosis. Progress note dated July 04, 2023. The patient is seen today in room 353. She was seen in consultation 2 days ago. The patient does have an established history of COPD. She was admitted with acute kidney injury, thought to possibly have a vasculitis. Her C ANCA, was positive. She was started on high-dose corticosteroids, by nephrology. From the pulmonary standpoint, she is doing about the same, or better. She does continue on 3 L of oxygen. She is not receiving any IV fluids. She is using her Trelegy, which is at the bedside. Current labs include a white count 20.2, hemoglobin 7.8, macro 25.5, and a platelet count of 473,000. Sodium 131, potassium 4.2, chlorides 93, CO2 30, BUN 30, creatinine 3.38. Glucose is 143. Albumin 2.8. 07/05/2023, the patient is awake and alert and she has no specific complaints.. No altered mentation. She is feeling a bit fatigued. The plan is to transfer the patient to a tertiary care center regarding her ongoing suspected vasculitis and renal failure. In terms of her respiratory status, the patient is on 2 L of oxygen by nasal cannula with a pulse ox of 93%. Denies having any major respiratory difficulties. Her VQ scan was positive for multiple perfusion defects with a large peripheral based defect seen in the left midlung. The Doppler of the lower extremity that was done showed a complex area in the right knee without evidence of any DVT. And this was consistent with with a cyst, a popliteal cyst. There was also suspicious finding of a left peroneal DVT. The patient currently remains on IV heparin. Blood work from today shows a WBC count of 26, hemoglobin is at 8 and a platelet count of 436. BUN is 48 with a creatinine of 5.11 and sodium levels at 131. Nephrology on the case and as mentioned, a biopsy of the kidney will be needed and the patient is being considered for transfer. She is scheduled for hemodialysis this morning. Meanwhile, the patient remains on IV Rocephin as an empiric antibiotic coverage. The patient is also on 60 mg of prednisone on a daily basis. Objective - Vital Signs Vital signs: Vital Signs Temp 98.2 F 07/04/23 15:45 Pulse 80 07/05/23 09:08 Resp 20 07/05/23 08:00 BP 154/99 07/05/23 08:00 Pulse Ox 95 07/05/23 08:00 FiO2 Intake & Output 07/04/23 07/05/23 07/05/23 18:59 06:59 18:59 Intake Total 390 102.889 Balance 390 102.889 Intake: Intake, IV Titration 150 102.889 Amount Heparin Sod,Pork in 0.45% 102.889 NaCl 25,000 unit In 0.45 % NaCl 1 250ml.bag @ 18 UNITS/KG/HR 12.888 mls/hr IV .[id number] [facility] Rx#: [id number] Sodium Ferric Gluconat- 100 Sucrose 125 mg In Sodium Chloride 0.9% 100 ml @ 100 mls/hr IVPB DAILY [facility] Rx#:[id number] cefTRIAXone 1 gm In 50 Sodium Chloride 0.9% 50 ml @ 100 mls/hr IVPB Q24HR [facility] Rx#:[id number] Oral 240 Other: Voiding Method Toilet Toilet Toilet # Voids 2 0 - Exam No acute distress, oriented 3. The patient is currently on 2 L nasal cannula. No obvious respiratory distress. HEENT examination is grossly unremarkable. Mucous membranes are moist. No oral lesions. Neck supple. Full range of motion. No adenopathy thyromegaly or neck vein distention. Cardiovascular examination reveals regular rhythm rate. S1-S2 normal. No S3 or S4. No discernible murmur noted. Lungs reveal clear breath sounds. Breath sounds are equal bilaterally. No adventitious lung sounds including wheezes rhonchi or crackles. Abdomen soft bowel sounds are heard. No masses or tenderness. Extremities are intact. No cyanosis clubbing or edema. Skin is without rash or lesion. Neurologic examination is brief but nonfocal. - Labs CBC & Chem 7: 07/05/23 08:09 07/05/23 08:08 Labs: Abnormal Lab Results - Last 24 Hours (Table) 07/04/23 07/04/23 07/04/23 Range/Units 11:29 16:35 17:17 WBC (3.8-10.6) k/uL RBC (3.80-5.40) m/uL Hgb (11.4-16.0) gm/dL Hct (34.0-46.0) % MCHC (31.0-37.0) g/dL Plt Count (150-450) k/uL Neutrophils # (1.3-7.7) k/uL APTT (22.0-30.0) sec D-Dimer 6.28 H (<0.60) mg/L FEU ABG pH (7.35-7.45) ABG pCO2 (35-45) mmHg ABG HCO3 (21-25) mmol/L ABG Total CO2 (19-24) mmol/L Sodium (137-145) mmol/L Chloride (98-107) mmol/L Carbon Dioxide (22-30) mmol/L BUN (7-17) mg/dL Creatinine (0.52-1.04) mg/dL POC Glucose (mg/dL) 143 H 135 H (70-110) mg/dL Calcium (8.4-10.2) mg/dL AST (14-36) U/L ALT (4-34) U/L Alkaline Phosphatase (38-126) U/L Troponin I (0.000-0.034) ng/mL Total Protein (6.3-8.2) g/dL Albumin (3.5-5.0) g/dL 07/04/23 07/04/23 07/04/23 Range/Units 17:17 17:39 18:01 WBC 22.8 H (3.8-10.6) k/uL RBC 3.13 L (3.80-5.40) m/uL Hgb 8.2 L (11.4-16.0) gm/dL Hct 28.2 L (34.0-46.0) % MCHC 29.1 L (31.0-37.0) g/dL Plt Count 497 H (150-450) k/uL Neutrophils # 20.9 H (1.3-7.7) k/uL APTT (22.0-30.0) sec D-Dimer (<0.60) mg/L FEU ABG pH 7.33 L (7.35-7.45) ABG pCO2 54 H (35-45) mmHg ABG HCO3 29 H (21-25) mmol/L ABG Total CO2 30 H (19-24) mmol/L Sodium (137-145) mmol/L Chloride (98-107) mmol/L Carbon Dioxide (22-30) mmol/L BUN (7-17) mg/dL Creatinine (0.52-1.04) mg/dL POC Glucose (mg/dL) (70-110) mg/dL Calcium (8.4-10.2) mg/dL AST (14-36) U/L ALT (4-34) U/L Alkaline Phosphatase (38-126) U/L Troponin I 0.116 H* (0.000-0.034) ng/mL Total Protein (6.3-8.2) g/dL Albumin (3.5-5.0) g/dL 07/04/23 07/05/23 07/05/23 Range/Units 20:29 00:01 08:08 WBC (3.8-10.6) k/uL RBC (3.80-5.40) m/uL Hgb (11.4-16.0) gm/dL Hct (34.0-46.0) % MCHC (31.0-37.0) g/dL Plt Count (150-450) k/uL Neutrophils # (1.3-7.7) k/uL APTT 151.5 H* (22.0-30.0) sec D-Dimer (<0.60) mg/L FEU ABG pH (7.35-7.45) ABG pCO2 (35-45) mmHg ABG HCO3 (21-25) mmol/L ABG Total CO2 (19-24) mmol/L Sodium 131 L (137-145) mmol/L Chloride 91 L (98-107) mmol/L Carbon Dioxide 21 L (22-30) mmol/L BUN 48 H (7-17) mg/dL Creatinine 5.11 H (0.52-1.04) mg/dL POC Glucose (mg/dL) 165 H (70-110) mg/dL Calcium 8.3 L (8.4-10.2) mg/dL AST 98 H (14-36) U/L ALT 40 H (4-34) U/L Alkaline Phosphatase 132 H (38-126) U/L Troponin I (0.000-0.034) ng/mL Total Protein 6.0 L (6.3-8.2) g/dL Albumin 3.2 L (3.5-5.0) g/dL 07/05/23 07/05/23 07/05/23 Range/Units 08:08 08:09 08:09 WBC 26.1 H (3.8-10.6) k/uL RBC 2.97 L (3.80-5.40) m/uL Hgb 8.0 L (11.4-16.0) gm/dL Hct 26.6 L (34.0-46.0) % MCHC 30.2 L (31.0-37.0) g/dL Plt Count (150-450) k/uL Neutrophils # 23.5 H (1.3-7.7) k/uL APTT 113.7 H* (22.0-30.0) sec D-Dimer (<0.60) mg/L FEU ABG pH (7.35-7.45) ABG pCO2 (35-45) mmHg ABG HCO3 (21-25) mmol/L ABG Total CO2 (19-24) mmol/L Sodium (137-145) mmol/L Chloride (98-107) mmol/L Carbon Dioxide (22-30) mmol/L BUN (7-17) mg/dL Creatinine (0.52-1.04) mg/dL POC Glucose (mg/dL) (70-110) mg/dL Calcium (8.4-10.2) mg/dL AST (14-36) U/L ALT (4-34) U/L Alkaline Phosphatase (38-126) U/L Troponin I 2.390 H* (0.000-0.034) ng/mL Total Protein (6.3-8.2) g/dL Albumin (3.5-5.0) g/dL Microbiology - Last 24 Hours (Table) 06/29/23 22:25 Blood Culture - Final Blood Assessment and Plan Plan: Pulmonary embolism with a high probability VQ scan and the left peroneal DVT, currently on IV heparin. Acute hypoxic respiratory failure currently on 2 L of O2 nasal cannula Generalized weakness with associated nausea and vomiting for several days with poor appetite and poor oral intake. Acute kidney injury with an elevated creatinine, hemodialysis scheduled for today. 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 daily. Plan is for kidney biopsy. Chronic obstructive pulmonary disease. Chronic tobacco dependence. Leukocytosis, likely reactive Plan: Hemodialysis today Continue prednisone at a dose of 60 mg p.o. daily Monitor renal function Continue IV heparin The patient is being considered to be transferred to another facility regarding the need for a kidney biopsy and further investigation for a C ANCA vasculitis. We will continue to follow the patient, make recommendations along the way. Prognosis is guarded. Respiratory status is reasonably stable.
[2023-07-05 16:33] LABS: Glucose,Whole Blood 91 mg/dL (70-110)
--- NOTE | 2023-07-05 18:59 | CA ---
Transthoracic Echo Report Name: Milka Coulter Age: 62 Gender: F : 1960 Exam Date: 07/05/2023 09:56 Exam Location: [place] [facility] Ht (in): 62 Wt (lb): 157 Ordering Physician: Ashley Stark Attending/Referring Phys: [id number], [place] [employer] Christiane Mims RDCS Procedure CPT: Indications: LV function Cardiac Hx: Technical Quality: Good Contrast 1: Definity Total Dose (mL): 2 Contrast 2: Total Dose (mL): MEASUREMENTS (Male / Female) Normal Values 2D ECHO LV Diastolic Diameter PLAX 4.7 cm 4.2 - 5.9 / 3.9 - 5.3 cm LV Systolic Diameter PLAX 4.3 cm IVS Diastolic Thickness 0.8 cm 0.6 - 1.0 / 0.6 - 0.9 cm LVPW Diastolic Thickness 0.9 cm 0.6 - 1.0 / 0.6 - 0.9 cm LV Relative Wall Thickness 0.4 RV Internal Dim ED PLAX 2.8 cm LA Systolic Diameter LX 3.6 cm 3.0 - 4.0 / 2.7 - 3.8 cm LV Diastolic Volume MOD BP 81.4 cm??? 67 - 155 / 56 - 104 cm??? LV Systolic Volume MOD BP 61.8 cm??? 22 - 58 / 19 - 49 cm??? LV Ejection Fraction MOD BP 24.1 % >= 55 % LV Cardiac Index MOD BP 899.1 cm???/min???m??? LV Diastolic Volume MOD 4C 82.3 cm??? LV Systolic Volume MOD 4C 64.9 cm??? LV Ejection Fraction MOD 4C 21.1 % LV Cardiac Index MOD 4C 797.8 cm???/min???m??? LV Diastolic Length 4C 8.0 cm LV Systolic Length 4C 7.3 cm LV Diastolic Volume MOD 2C 81.2 cm??? LV Systolic Volume MOD 2C 63.6 cm??? LV Ejection Fraction MOD 2C 21.7 % LV Cardiac Index MOD 2C 807.2 cm???/min???m??? LV Diastolic Length 2C 8.0 cm LV Systolic Length 2C 7.7 cm LA Volume 74.3 cm??? 18 - 58 / 22 - 52 cm??? LA Volume Index 41.6 cm???/m??? 16 - 28 cm???/m??? M-MODE Aortic Root Diameter MM 2.6 cm LA Systolic Diameter MM 2.9 cm LA Ao Ratio MM 1.1 AV Cusp Separation MM 1.6 cm DOPPLER AV Peak Velocity 89.9 cm/s AV Peak Gradient 3.2 mmHg MV Area PHT 3.9 cm??? MR Peak Velocity 463.6 cm/s MR Peak Gradient 86.0 mmHg MR Flow Rate PISA 82.1 cm???/s Mitral E Point Velocity 95.0 cm/s Mitral A Point Velocity 66.4 cm/s Mitral E to A Ratio 1.4 MV Deceleration Time 195.3 ms TR Peak Velocity 234.3 cm/s TR Peak Gradient 22.0 mmHg Right Ventricular Systolic Press 41.7 mmHg FINDINGS Left Ventricle Left ventricular ejection fraction is estimated at 15-20 %. Moderately increased left ventricular systolic volume. Severely decreased left ventricular ejection fraction. Severely reduced global left ventricular systolic function. Right Ventricle Mild right ventricular dilatation. Reduced right ventricular global systolic function. Mild pulmonary hypertension. Right Atrium Moderate right atrial dilatation. Left Atrium Severely increased left atrial volume. Mitral Valve Mitral valve thickened. [id number] mitral regurgitation. Aortic Valve Trileaflet aortic valve. No aortic stenosis. Mild aortic regurgitation. Tricuspid Valve Structurally normal tricuspid valve. Moderate tricuspid regurgitation. Pulmonic Valve Pulmonic valve not well visualized. Trace pulmonic regurgitation. No pulmonic stenosis. Pericardium No pericardial or pleural effusion. Aorta Normal size aortic root and proximal ascending aorta. CONCLUSIONS Severely impaired LV function with an EF at 15-20% with global hypokinesia Intact mitral valve leaflets with moderate to severe mitral regurgitation Mild pulmonary hypertension. Dilated right ventricle. Moderate tricuspid regurgitation Trileaflet aortic valve was mild aortic insufficiency Dilated IVC Previewed by: Dr. Paul Diaz MD (Electronically Signed) Final Date: 05 July 2023 18:58
[2023-07-05 20:19] LABS: Glucose,Whole Blood 55 mg/dL (70-110)
[2023-07-05 20:29] LABS: Glucose,Whole Blood 55 mg/dL (70-110)
[2023-07-05 20:48] LABS: Glucose,Whole Blood 76 mg/dL (70-110)
[2023-07-05] MEDS: ATORVASTATIN 80 MG TAB PO SCH (21:02)
[2023-07-06 05:55] LABS: Glucose,Whole Blood 106 mg/dL (70-110)
--- NOTE | 2023-07-06 08:11 | P.PN ---
Subjective Progress Note Date: 07/05/23 Principal diagnosis: Reason for follow-up is rash and leukocytosis Patient is a 62-year female presented to hospital with muscle weakness fatigue has been diagnosed with acute renal failure also have a rash concerning for vasculitis versus infectious etiology prompting this consultation. On today's evaluation that is 07/05/2023,the patient denies any fever or any chi lls, patient is breathing comfortably on 2 L nasal cannula oxygen , the patient denies chest pain however complaining of some shortness of breath night no significant cough, patient denies abdominal pain, no nausea vomiting or diarrhea, no new rash. Patient white count is up to 26.1 creatinine is 5.11 blood cultures have been negative Objective - Vital Signs Vital signs: Vital Signs Temp 98.2 F 07/04/23 15:45 Pulse 78 07/05/23 15:49 Resp 16 07/05/23 12:00 BP 116/80 07/05/23 12:00 Pulse Ox 93 L 07/05/23 12:00 FiO2 Intake & Output 07/04/23 07/05/23 07/05/23 18:59 06:59 18:59 Intake Total 390 102.889 88.247 Balance 390 102.889 88.247 Intake: Intake, IV Titration 150 102.889 88.247 Amount Heparin Sod,Pork in 0.45% 102.889 88.247 NaCl 25,000 unit In 0.45 % NaCl 1 250ml.bag @ 18 UNITS/KG/HR 12.888 mls/hr IV .[id number] [facility] Rx#: [id number] Sodium Ferric Gluconat- 100 Sucrose 125 mg In Sodium Chloride 0.9% 100 ml @ 100 mls/hr IVPB DAILY [facility] Rx#:[id number] cefTRIAXone 1 gm In 50 Sodium Chloride 0.9% 50 ml @ 100 mls/hr IVPB Q24HR [facility] Rx#:[id number] Oral 240 Other: Voiding Method Toilet Toilet Toilet # Voids 2 0 - Exam GENERAL DESCRIPTION: Middle-aged female lying in bed in no distress RESPIRATORY SYSTEM: Unlabored breathing , decreased breath sounds at bases HEART: S1 S2 regular rate and rhythm , ABDOMEN: Soft , no tenderness EXTREMITIES: No edema feet - Labs CBC & Chem 7: 07/05/23 08:09 07/05/23 08:08 Labs: Abnormal Lab Results - Last 24 Hours (Table) 07/04/23 07/04/23 07/04/23 Range/Units 16:35 17:17 17:17 WBC 22.8 H (3.8-10.6) k/uL RBC 3.13 L (3.80-5.40) m/uL Hgb 8.2 L (11.4-16.0) gm/dL Hct 28.2 L (34.0-46.0) % MCHC 29.1 L (31.0-37.0) g/dL Plt Count 497 H (150-450) k/uL Neutrophils # 20.9 H (1.3-7.7) k/uL APTT (22.0-30.0) sec D-Dimer 6.28 H (<0.60) mg/L FEU ABG pH (7.35-7.45) ABG pCO2 (35-45) mmHg ABG HCO3 (21-25) mmol/L ABG Total CO2 (19-24) mmol/L Sodium (137-145) mmol/L Chloride (98-107) mmol/L Carbon Dioxide (22-30) mmol/L BUN (7-17) mg/dL Creatinine (0.52-1.04) mg/dL POC Glucose (mg/dL) 135 H (70-110) mg/dL Calcium (8.4-10.2) mg/dL AST (14-36) U/L ALT (4-34) U/L Alkaline Phosphatase (38-126) U/L Troponin I (0.000-0.034) ng/mL Total Protein (6.3-8.2) g/dL Albumin (3.5-5.0) g/dL 07/04/23 07/04/23 07/04/23 Range/Units 17:39 18:01 20:29 WBC (3.8-10.6) k/uL RBC (3.80-5.40) m/uL Hgb (11.4-16.0) gm/dL Hct (34.0-46.0) % MCHC (31.0-37.0) g/dL Plt Count (150-450) k/uL Neutrophils # (1.3-7.7) k/uL APTT (22.0-30.0) sec D-Dimer (<0.60) mg/L FEU ABG pH 7.33 L (7.35-7.45) ABG pCO2 54 H (35-45) mmHg ABG HCO3 29 H (21-25) mmol/L ABG Total CO2 30 H (19-24) mmol/L Sodium (137-145) mmol/L Chloride (98-107) mmol/L Carbon Dioxide (22-30) mmol/L BUN (7-17) mg/dL Creatinine (0.52-1.04) mg/dL POC Glucose (mg/dL) 165 H (70-110) mg/dL Calcium (8.4-10.2) mg/dL AST (14-36) U/L ALT (4-34) U/L Alkaline Phosphatase (38-126) U/L Troponin I 0.116 H* (0.000-0.034) ng/mL Total Protein (6.3-8.2) g/dL Albumin (3.5-5.0) g/dL 07/05/23 07/05/23 07/05/23 Range/Units 00:01 08:08 08:08 WBC (3.8-10.6) k/uL RBC (3.80-5.40) m/uL Hgb (11.4-16.0) gm/dL Hct (34.0-46.0) % MCHC (31.0-37.0) g/dL Plt Count (150-450) k/uL Neutrophils # (1.3-7.7) k/uL APTT 151.5 H* (22.0-30.0) sec D-Dimer (<0.60) mg/L FEU ABG pH (7.35-7.45) ABG pCO2 (35-45) mmHg ABG HCO3 (21-25) mmol/L ABG Total CO2 (19-24) mmol/L Sodium 131 L (137-145) mmol/L Chloride 91 L (98-107) mmol/L Carbon Dioxide 21 L (22-30) mmol/L BUN 48 H (7-17) mg/dL Creatinine 5.11 H (0.52-1.04) mg/dL POC Glucose (mg/dL) (70-110) mg/dL Calcium 8.3 L (8.4-10.2) mg/dL AST 98 H (14-36) U/L ALT 40 H (4-34) U/L Alkaline Phosphatase 132 H (38-126) U/L Troponin I 2.390 H* (0.000-0.034) ng/mL Total Protein 6.0 L (6.3-8.2) g/dL Albumin 3.2 L (3.5-5.0) g/dL 07/05/23 07/05/23 07/05/23 Range/Units 08:09 08:09 12:48 WBC 26.1 H (3.8-10.6) k/uL RBC 2.97 L (3.80-5.40) m/uL Hgb 8.0 L (11.4-16.0) gm/dL Hct 26.6 L (34.0-46.0) % MCHC 30.2 L (31.0-37.0) g/dL Plt Count (150-450) k/uL Neutrophils # 23.5 H (1.3-7.7) k/uL APTT 113.7 H* (22.0-30.0) sec D-Dimer (<0.60) mg/L FEU ABG pH (7.35-7.45) ABG pCO2 (35-45) mmHg ABG HCO3 (21-25) mmol/L ABG Total CO2 (19-24) mmol/L Sodium (137-145) mmol/L Chloride (98-107) mmol/L Carbon Dioxide (22-30) mmol/L BUN (7-17) mg/dL Creatinine (0.52-1.04) mg/dL POC Glucose (mg/dL) (70-110) mg/dL Calcium (8.4-10.2) mg/dL AST (14-36) U/L ALT (4-34) U/L Alkaline Phosphatase (38-126) U/L Troponin I 1.900 H* (0.000-0.034) ng/mL Total Protein (6.3-8.2) g/dL Albumin (3.5-5.0) g/dL Microbiology - Last 24 Hours (Table) 06/29/23 22:25 Blood Culture - Final Blood Assessment and Plan (1) Rash Current Visit: Yes Status: Acute Code(s): R21 - RASH AND OTHER NONSPECIFIC SKIN ERUPTION SNOMED Code(s): 227167807 (2) Leukocytosis Current Visit: Yes Status: Acute Code(s): D72.829 - ELEVATED WHITE BLOOD CELL COUNT, UNSPECIFIED SNOMED Code(s): 103100367 Plan: 1patient did have a very mild petechial rash to the lower extremity in this patient admitted to hospital with generalized weakness fatigue and acute renal failure clinical suspicion low for any infectious etiology 2-did have a positive UA however culture has been negative 3-leukocytosis likely steroid related as no evidence of any worsening infection and will monitor closely 4-rash more likely vasculitis clinic doubt infectious etiology currently waiting for biopsy or possible transfer to tertiary care Dictation was produced using [employer] dictation software. please excuse any grammatical, word or spelling errors. Time with Patient: Less than 30
--- NOTE | 2023-07-06 09:20 | P.PN ---
Subjective Progress Note Date: 07/06/23 this is a 62-year-old female patient of Dr. Daniels who presented with complaints ofmuscle weakness and fatigue has been occurring over the past month patient reports she's had trouble completing her ADLs because of this muscle fatigue. Patient denies significant medical history except for mild COPD. Patient denies any recent illness or infection. Patient denies any change in medication. Patient denies changed diet.chest x-ray completed showing no acute cardiopulmonary disease. Renal ultrasound completed showing no evidence of hydronephrosis or shadowing calculus. labwork revealing WBC of 18.7, hemoglobin 8.4, creatinine 7.02, bun 73. UA showing small amount of leukocyte Estrace. This time blood and urine cultures will be ordered. Patient started on IV Rocephin. Patient started normal saline. Nephrology services have been consulted. repeat labs ordered On 07/01/2023 patient was seen and examined on the medical floor she is alert and oriented 3 in no apparent distress she is complaining of generalized pain and weakness otherwise she denies any complaints, she is receiving her first session of hemodialysis, there is no fever or chills no headache or dizziness no chest pain no shortness of breath no cough no nausea or vomiting no abdominal pain no diarrhea and no urinary symptoms. On 07/02/2023 patient is alert and oriented 3. Patient still complaining of significant body aches with nausea. Patient currently getting second round of hemodialysis. She reports rash possible bites and lower extremities will consult infectious disease services. lyme disease lab work ordered. Nephrology services ordering for kidney biopsy.Current vital signs temp 98.1, heart rate 78, respiratory rate 16, blood pressure 131/67 with a pulse ox 92% on room air. On 07/03/2023 patient was seen and examined on the medical floor she is alert alert and oriented 3 in no apparent distress, of generalized body ache and weakness, otherwise she denies any complaints there is no fever or chills no headache or dizziness no chest pain no shortness of breath no cough no nausea or vomiting no abdominal pain no diarrhea and no urinary symptoms vital examination reveals a temperature of 97.9 pulse 72 respiration 20 blood pressure 144/72 pulse ox 97% on 3 L nasal cannula. 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 on 07/04/2023 patient's alert and oriented 3. Patient still complaining of generalized ache and weakness current vital signs temp 97.7, heart rate 68, respiratory rate 20, blood pressure 168/84 and pulse ox 99% on 3 L. patient remains on IV Solu-Medrol. Nephrology, infectious disease, surgical critical care services are following. On 07/05/2023 patient was seen and examined on the telemetry floor, she is alert and oriented 3 in no apparent distress, last night she had an episode of worsening shortness of breath, chest x-ray d-dimer and arterial blood gas were done, d-dimer was elevated significantly, she was started on IV heparin, VQ scan was done and was positive for pulmonary embolism, patient was continued on high intensity IV heparin protocol, troponin level were also slightly elevated y , pulmonary consultation and cardiology consultation were added, today case was discussed in details with cardiology and with nephrology, and the recommendation is to transfer patient to a tertiary care center, kidney biopsy was canceled for this morning, patient remains on IV Solu-Medrol and IV heparin protocol. On 07/06/2023 patient's alert and oriented 3. Patient has been accepted at [facility] awaiting a bed availability. Patient remains on IV heparin.current vital signs temp 97.4, heart rate 95, respiratory rate 18, blood pressure 122/79 with a pulse ox 96% on 2 L. Patient to receive hemodialysis today Objective - Vital Signs Vital signs: Vital Signs Temp 97.4 F L 07/05/23 20:57 Pulse 87 07/06/23 03:17 Resp 18 07/06/23 03:17 BP 117/80 07/06/23 03:17 Pulse Ox 95 07/06/23 03:17 FiO2 Intake & Output 07/05/23 07/06/23 07/06/23 18:59 06:59 18:59 Intake Total 327.111 240 Balance 327.111 240 Weight 72.7 kg Intake: Intake, IV Titration 147.111 Amount Heparin Sod,Pork in 0.45% 147.111 NaCl 25,000 unit In 0.45 % NaCl 1 250ml.bag @ 18 UNITS/KG/HR 12.888 mls/hr IV .[id number] [facility] Rx#: [id number] Oral 180 240 Other: Voiding Method Toilet Toilet # Voids 1 1 - Exam In general patient is alert and oriented x 3 in no distress HEENT head normocephalic and atraumatic Neck is supple no JVD no goiter no lymphadenopathy no carotid bruit Chest examination is clear to auscultation no crackles no wheezing Cardiac exam reveals regular heart sounds S1 and S2 no gallops no murmurs Abdomen is soft nontender no organomegaly with normal bowel sounds Extremity exam reveals no edema no cyanosis or clubbing Neurological examination reveals no gross focal deficits - Labs CBC & Chem 7: 07/05/23 08:09 07/05/23 08:08 Labs: Abnormal Lab Results - Last 24 Hours (Table) 07/05/23 07/05/23 07/05/23 Range/Units 08:08 08:08 08:09 WBC 26.1 H (3.8-10.6) k/uL RBC 2.97 L (3.80-5.40) m/uL Hgb 8.0 L (11.4-16.0) gm/dL Hct 26.6 L (34.0-46.0) % MCHC 30.2 L (31.0-37.0) g/dL Neutrophils # 23.5 H (1.3-7.7) k/uL APTT (22.0-30.0) sec Sodium 131 L (137-145) mmol/L Chloride 91 L (98-107) mmol/L Carbon Dioxide 21 L (22-30) mmol/L BUN 48 H (7-17) mg/dL Creatinine 5.11 H (0.52-1.04) mg/dL POC Glucose (mg/dL) (70-110) mg/dL Calcium 8.3 L (8.4-10.2) mg/dL AST 98 H (14-36) U/L ALT 40 H (4-34) U/L Alkaline Phosphatase 132 H (38-126) U/L Troponin I 2.390 H* (0.000-0.034) ng/mL Total Protein 6.0 L (6.3-8.2) g/dL Albumin 3.2 L (3.5-5.0) g/dL 07/05/23 07/05/23 07/05/23 Range/Units 08:09 12:48 19:04 WBC (3.8-10.6) k/uL RBC (3.80-5.40) m/uL Hgb (11.4-16.0) gm/dL Hct (34.0-46.0) % MCHC (31.0-37.0) g/dL Neutrophils # (1.3-7.7) k/uL APTT 113.7 H* 69.8 H (22.0-30.0) sec Sodium (137-145) mmol/L Chloride (98-107) mmol/L Carbon Dioxide (22-30) mmol/L BUN (7-17) mg/dL Creatinine (0.52-1.04) mg/dL POC Glucose (mg/dL) (70-110) mg/dL Calcium (8.4-10.2) mg/dL AST (14-36) U/L ALT (4-34) U/L Alkaline Phosphatase (38-126) U/L Troponin I 1.900 H* (0.000-0.034) ng/mL Total Protein (6.3-8.2) g/dL Albumin (3.5-5.0) g/dL 07/05/23 07/05/23 Range/Units 19:52 20:14 WBC (3.8-10.6) k/uL RBC (3.80-5.40) m/uL Hgb (11.4-16.0) gm/dL Hct (34.0-46.0) % MCHC (31.0-37.0) g/dL Neutrophils # (1.3-7.7) k/uL APTT (22.0-30.0) sec Sodium (137-145) mmol/L Chloride (98-107) mmol/L Carbon Dioxide (22-30) mmol/L BUN (7-17) mg/dL Creatinine (0.52-1.04) mg/dL POC Glucose (mg/dL) 55 L 55 L (70-110) mg/dL Calcium (8.4-10.2) mg/dL AST (14-36) U/L ALT (4-34) U/L Alkaline Phosphatase (38-126) U/L Troponin I (0.000-0.034) ng/mL Total Protein (6.3-8.2) g/dL Albumin (3.5-5.0) g/dL Assessment and Plan Assessment: 1. Muscle aches and fatigue likely secondary from acute renal failure 2. Acute renal failure. 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 Plan for kidney biopsy but was currently on hold due to development of PE and requiring IV heparin 3. Leukocytosis likely secondary from UTI. Urine and blood cultures ordered 3. History of COPD 4. Pulmonary embolism with high probability VQ scan currently on IV heparin DVT prophylaxis heparin. GI prophylaxis Protonix Nephrology service is consulted Blood and urine cultures ordered Patient started on IV Rocephin Infectious disease service is following Patient started on hemodialysis Further lab work ordered Repeat labs ordered patient has been accepted at [facility] awaiting bed availability
[2023-07-06 09:52] LABS: Anisocytosis Slight; Basophils # (A) 0.1 k/uL (0-0.2); Basophils % (A) 0 %; Eosinophils % (A) 0 %; HCT 26.8 % (34.0-46.0); HGB 8.1 gm/dL (11.4-16.0); Hypochromasia Slight; Lymphocytes # (A) 2.1 k/uL (1.0-4.8); Lymphocytes % (A) 11 %; MCH 26.5 pg (25.0-35.0); MCHC 30.4 g/dL (31.0-37.0); MCV 87.2 fL (80.0-100.0); Mean Platelet Volume 8.7; Monocytes # (A) 0.8 k/uL (0-1.0); Monocytes % (A) 4 %; Neutrophils # (A) 16.9 k/uL (1.3-7.7); Neutrophils % (A) 84 %; Platelet Count 359 k/uL (150-450); RBC 3.07 m/uL (3.80-5.40); RDW 16.1 % (11.5-15.5)
[2023-07-06 09:56] LABS: ALT 328 U/L (4-34); AST 559 U/L (14-36); African American GFR (CKD) 8 (>60 ml/min/1.73 sqM); Albumin 2.8 g/dL (3.5-5.0); Alkaline Phosphatase 174 U/L (38-126); Anion Gap 18 mmol/L; Blood Urea Nitrogen 73 mg/dL (7-17); Calcium 7.7 mg/dL (8.4-10.2); Carbon Dioxide 21 mmol/L (22-30); Chloride 91 mmol/L (98-107); Glucose 94 mg/dL (74-99); Non-African American GFR(CKD) 7 (>60 ml/min/1.73 sqM); Potassium 5.1 mmol/L (3.5-5.1); Sodium 130 mmol/L (137-145); Total Bilirubin 0.6 mg/dL (0.2-1.3); Total Protein 5.4 g/dL (6.3-8.2)
--- NOTE | 2023-07-06 10:41 | P.PN ---
Subjective HISTORY OF PRESENT ILLNESS: This is a 62-year-old female with a past medical history significant for COPD and nicotine dependence. 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 We have been asked to see the patient in consultation for elevated troponin. Patient examined at the bedside. Patient states she presented to the hospital with a chief complaint of generalized weakness and muscle aches for the past month. She also reports over the past week she has had decreased oral intake and dry heaves. She denied having any chest pain or pressure. Denied any shortness of breath. The patient was found to be in acute renal failure upon admission with a creatinine of 7.02. Patient did receive a hemodialysis catheter and has been started on hemodialysis. Patients CANCA was found to be positive. She is scheduled to undergo a kidney biopsy today and also a biopsy of of her left foot lesion with general surgery. At the time of examination, the patient complains of nausea. She continues to have dry heaves with a emesis basin in front of her. She reports epigastric pain that has been ongoing for the past week that occurs after she has an episode of dry heaves. Overnight the patient had an episode of SVT. She does report feeling palpitations. She states after an episode of palpitations she begins to feel nauseated and then has dry heaves. She was given a dose of antianxiety medications. Remote telemetry this morning reveals sinus tachycardia with a heart rate between [id number]. Blood pressure is stable. Patient was also found to have an elevated D-dimer of 6.28. She underwent VQ scan this morning. Results are currently pending. She remains on IV heparin. DIAGNOSTICS: - EKG on admission reveals sinus mechanism with no signs of acute ischemia. Repeat EKG overnight reveals SVT. - Chest xray chronic changes without acute pulmonary process. No significant change from prior. Appropriate placement of right internal jugular central venous catheter. - Laboratory data: WBC 22.8. Hemoglobin 8.2. Platelet count 497. D-dimer 6.28. Sodium 131. Potassium 4.2. BUN 30. Creatinine 3.38. Troponin 0.116. - Current home cardiac medications include none 07/06/2023 Patient examined this morning at the bedside. Patient reports her nausea has improved today. She is eating breakfast at the time of examination. She denies chest pain or pressure. She reports improvement in her shortness of breath. Patient is about to undergo hemodialysis at the time of evaluation. Echocardiogram completed revealing ejection fraction 15 to 20% with global hypokinesia, intact mitral valve leaflets with moderate to severe mitral regurgitation, mild pulm hypertension, dilated right ventricle, moderate tricuspid regurgitation, trileaflet aortic valve with mild aortic insufficiency. Patient underwent VQ scan yesterday revealing multiple perfusion defects with a larger peripheral base defects within the left midlung. A pulmonary embolism would be in the differential diagnosis. Lower extremity Doppler reveals findings suspicious for small left peroneal DVT, complex collection medial right knee measuring 5 cm may represent complex popliteal fossa cyst. She remains on IV heparin. LFTs are elevated this morning with an AST of 559. ALT 328. PHYSICAL EXAM: VITAL SIGNS: Reviewed. GENERAL: Well-developed in no acute distress. HEENT: Head is normocephalic. Pupils are equal, round. Sclerae anicteric. Mucous membranes of the mouth are moist. Neck supple. No JVD or thyromegaly LUNGS: Respirations even and unlabored. Lungs essentially clear to auscultation bilaterally. HEART: Regular rate and rhythm. S1 and S2 heard. ABDOMEN: Soft. Nondistended. Nontender. EXTREMITIES: Normal range of motion. No clubbing or cyanosis. Peripheral pulses intact. No lower extremity edema NEUROLOGIC: Awake and alert. Oriented x 3. ASSESSMENT: Generalized weakness and muscle aches, x 1 month Nausea and dry heaves Acute renal failure requiring hemodialysis CANCA positive Elevated D-dimer, VQ scan reveals likely pulmonary embolism Small left peroneal DVT Severe cardiomyopathy, 15 to 20%, ischemic versus nonischemic Skin lesions with concerns for vasculitis Elevated troponin, suspect secondary to acute renal failure, type I IA less likely Paroxysmal SVT Sinus tachycardia COPD Nicotine dependence Transaminitis PLAN: Continue current cardiac medications Continue IV heparin Discontinue atorvastatin secondary to worsening transaminitis Patient would eventually benefit from JAGRUTI/ARB, Aldactone, and Farxiga once her r enal failure has resolved Primary medicine is transferring patient to [facility]. Agree with transfer to tertiary care center. Further recommendations pending patient course Nurse practitioner note has been reviewed by physician. Signing provider agrees with the documented findings, assessment, and plan of care documented by INSTRUMENTATION SUPERVISOR as a scribe. Objective - Vital Signs Vital signs: Vital Signs Temp 97.7 F 07/06/23 08:00 Pulse 77 07/06/23 09:30 Resp 18 07/06/23 08:00 BP 127/87 07/06/23 08:00 Pulse Ox 96 07/06/23 08:00 FiO2 Intake & Output 07/05/23 07/06/23 07/06/23 18:59 06:59 18:59 Intake Total 327.111 240 139.155 Balance 327.111 240 139.155 Weight 72.7 kg Intake: Intake, IV Titration 147.111 139.155 Amount Heparin Sod,Pork in 0.45% 147.111 139.155 NaCl 25,000 unit In 0.45 % NaCl 1 250ml.bag @ 18 UNITS/KG/HR 12.888 mls/hr IV .[id number] [facility] Rx#: [id number] Oral 180 240 Other: Voiding Method Toilet Toilet Toilet # Voids 1 1 - Labs CBC & Chem 7: 07/06/23 08:26 07/06/23 08:26 Labs: Abnormal Lab Results - Last 24 Hours (Table) 07/05/23 07/05/23 07/05/23 Range/Units 08:08 12:48 19:04 WBC (3.8-10.6) k/uL RBC (3.80-5.40) m/uL Hgb (11.4-16.0) gm/dL Hct (34.0-46.0) % MCHC (31.0-37.0) g/dL RDW (11.5-15.5) % Neutrophils # (1.3-7.7) k/uL APTT 69.8 H (22.0-30.0) sec Sodium 131 L (137-145) mmol/L Chloride 91 L (98-107) mmol/L Carbon Dioxide 21 L (22-30) mmol/L BUN 48 H (7-17) mg/dL Creatinine 5.11 H (0.52-1.04) mg/dL POC Glucose (mg/dL) (70-110) mg/dL Calcium 8.3 L (8.4-10.2) mg/dL AST 98 H (14-36) U/L ALT 40 H (4-34) U/L Alkaline Phosphatase 132 H (38-126) U/L Troponin I 1.900 H* (0.000-0.034) ng/mL Total Protein 6.0 L (6.3-8.2) g/dL Albumin 3.2 L (3.5-5.0) g/dL 07/05/23 07/05/23 07/06/23 Range/Units 19:52 20:14 08:26 WBC 20.0 H (3.8-10.6) k/uL RBC 3.07 L (3.80-5.40) m/uL Hgb 8.1 L (11.4-16.0) gm/dL Hct 26.8 L (34.0-46.0) % MCHC 30.4 L (31.0-37.0) g/dL RDW 16.1 H (11.5-15.5) % Neutrophils # 16.9 H (1.3-7.7) k/uL APTT (22.0-30.0) sec Sodium (137-145) mmol/L Chloride (98-107) mmol/L Carbon Dioxide (22-30) mmol/L BUN (7-17) mg/dL Creatinine (0.52-1.04) mg/dL POC Glucose (mg/dL) 55 L 55 L (70-110) mg/dL Calcium (8.4-10.2) mg/dL AST (14-36) U/L ALT (4-34) U/L Alkaline Phosphatase (38-126) U/L Troponin I (0.000-0.034) ng/mL Total Protein (6.3-8.2) g/dL Albumin (3.5-5.0) g/dL 07/06/23 07/06/23 Range/Units 08:26 08:26 WBC (3.8-10.6) k/uL RBC (3.80-5.40) m/uL Hgb (11.4-16.0) gm/dL Hct (34.0-46.0) % MCHC (31.0-37.0) g/dL RDW (11.5-15.5) % Neutrophils # (1.3-7.7) k/uL APTT 87.9 H (22.0-30.0) sec Sodium 130 L (137-145) mmol/L Chloride 91 L (98-107) mmol/L Carbon Dioxide 21 L (22-30) mmol/L BUN 73 H (7-17) mg/dL Creatinine 6.06 H (0.52-1.04) mg/dL POC Glucose (mg/dL) (70-110) mg/dL Calcium 7.7 L (8.4-10.2) mg/dL AST 559 H (14-36) U/L ALT 328 H (4-34) U/L Alkaline Phosphatase 174 H (38-126) U/L Troponin I (0.000-0.034) ng/mL Total Protein 5.4 L (6.3-8.2) g/dL Albumin 2.8 L (3.5-5.0) g/dL
--- NOTE | 2023-07-06 10:46 | P.CONS ---
Past Medical History Past Medical History: COPD History of Any Multi-Drug Resistant Organisms: None Reported Past Psychological History: No Psychological Hx Reported Smoking Status: Former smoker Medications and Allergies Home Medications Medication Instructions Recorded Confirmed Type Albuterol Sulfate [Ventolin HFA] 2 puff INHALATION RT-Q6H PRN 06/29/23 06/29/23 History Cholecalciferol [Vitamin D3 (25 25 mcg PO DAILY 06/29/23 06/29/23 History Mcg = 1000 Iu)] Cyanocobalamin (Vitamin B-12) 1,000 mcg PO DAILY 06/29/23 06/29/23 History [Vitamin B-12] Fluticasone/Umeclidin/Vilanter 1 puff INHALATION RT-DAILY 06/29/23 06/29/23 History [Trelegy Ellipta 200-62.5-25] Multivit-Min/FA/Lycopen/Lutein 1 tab PO DAILY 06/29/23 06/29/23 History [Centrum Silver Tablet] Allergies Allergy/AdvReac Type Severity Reaction Status Date / Time No Known Allergies Allergy Verified 06/29/23 14:45 Physical Exam Vitals: Vital Signs Temp Pulse Pulse Resp BP Pulse Ox 07/06/23 09:30 77 07/06/23 09:20 75 07/06/23 08:00 97.7 F 90 18 127/87 96 07/06/23 03:17 87 18 117/80 95 07/05/23 23:35 74 16 114/73 95 07/05/23 20:57 97.4 F L 95 18 122/79 96 07/05/23 16:00 94 16 108/66 94 L 07/05/23 15:49 78 07/05/23 15:34 78 07/05/23 12:00 91 16 116/80 93 L Intake and Output 07/05/23 07/06/23 07/06/23 22:59 06:59 14:59 Intake Total 478.864 139.155 Balance 478.864 139.155 Intake: Intake, IV Titration 58.864 139.155 Amount Heparin Sod,Pork in 0.45% 58.864 139.155 NaCl 25,000 unit In 0.45 % NaCl 1 250ml.bag @ 18 UNITS/KG/HR 12.888 mls/hr IV .[id number] [facility] Rx#: [id number] Oral 420 Other: Voiding Method Toilet Toilet Toilet # Voids 1 1 Weight 72.7 kg Results CBC & Chem 7: 07/06/23 08:26 07/06/23 08:26 Labs: Abnormal Lab Results - Last 24 Hours (Table) 07/05/23 07/05/23 07/05/23 Range/Units 08:08 12:48 19:04 WBC (3.8-10.6) k/uL RBC (3.80-5.40) m/uL Hgb (11.4-16.0) gm/dL Hct (34.0-46.0) % MCHC (31.0-37.0) g/dL RDW (11.5-15.5) % Neutrophils # (1.3-7.7) k/uL APTT 69.8 H (22.0-30.0) sec Sodium 131 L (137-145) mmol/L Chloride 91 L (98-107) mmol/L Carbon Dioxide 21 L (22-30) mmol/L BUN 48 H (7-17) mg/dL Creatinine 5.11 H (0.52-1.04) mg/dL POC Glucose (mg/dL) (70-110) mg/dL Calcium 8.3 L (8.4-10.2) mg/dL AST 98 H (14-36) U/L ALT 40 H (4-34) U/L Alkaline Phosphatase 132 H (38-126) U/L Troponin I 1.900 H* (0.000-0.034) ng/mL Total Protein 6.0 L (6.3-8.2) g/dL Albumin 3.2 L (3.5-5.0) g/dL 07/05/23 07/05/23 07/06/23 Range/Units 19:52 20:14 08:26 WBC 20.0 H (3.8-10.6) k/uL RBC 3.07 L (3.80-5.40) m/uL Hgb 8.1 L (11.4-16.0) gm/dL Hct 26.8 L (34.0-46.0) % MCHC 30.4 L (31.0-37.0) g/dL RDW 16.1 H (11.5-15.5) % Neutrophils # 16.9 H (1.3-7.7) k/uL APTT (22.0-30.0) sec Sodium (137-145) mmol/L Chloride (98-107) mmol/L Carbon Dioxide (22-30) mmol/L BUN (7-17) mg/dL Creatinine (0.52-1.04) mg/dL POC Glucose (mg/dL) 55 L 55 L (70-110) mg/dL Calcium (8.4-10.2) mg/dL AST (14-36) U/L ALT (4-34) U/L Alkaline Phosphatase (38-126) U/L Troponin I (0.000-0.034) ng/mL Total Protein (6.3-8.2) g/dL Albumin (3.5-5.0) g/dL 07/06/23 07/06/23 Range/Units 08:26 08:26 WBC (3.8-10.6) k/uL RBC (3.80-5.40) m/uL Hgb (11.4-16.0) gm/dL Hct (34.0-46.0) % MCHC (31.0-37.0) g/dL RDW (11.5-15.5) % Neutrophils # (1.3-7.7) k/uL APTT 87.9 H (22.0-30.0) sec Sodium 130 L (137-145) mmol/L Chloride 91 L (98-107) mmol/L Carbon Dioxide 21 L (22-30) mmol/L BUN 73 H (7-17) mg/dL Creatinine 6.06 H (0.52-1.04) mg/dL POC Glucose (mg/dL) (70-110) mg/dL Calcium 7.7 L (8.4-10.2) mg/dL AST 559 H (14-36) U/L ALT 328 H (4-34) U/L Alkaline Phosphatase 174 H (38-126) U/L Troponin I (0.000-0.034) ng/mL Total Protein 5.4 L (6.3-8.2) g/dL Albumin 2.8 L (3.5-5.0) g/dL Assessment and Plan Assessment: HISTORY OF PRESENT ILLNESS The patient is a 62-year-old female who is seen as an inpatient at [facility], referred to rheumatology by nephrology for vasculitis. It looks like the patient was admitted for acute kidney injury and there is a high suspicion of underlying vasculitis given positive CANCA. The patient has been in the hospital for a week due to renal failure, she prese nted with body aches and weakness. She was started on hemodialysis on 07/01/2023 and her VQ scan showed high likelihood of PE and has been on IV heparin as well. It looks like a kidney biopsy was scheduled, which was canceled because the patient was unstable and the patient is on IV steroids. It looks like the patient presented to emergency room on 06/29/2023 with complaints of muscle weakness and fatigue, which has been getting progressively worse for the past 3 weeks. On admission, she had a c reatinine of 7 and some anemia and was admitted for acute kidney disease. She does deny any other major medical history. her nephew is visiting by the bedside. She experienced an episode of uncontrolled breathing yesterday, characterized by persistent gasping for air. She is currently on anticoagulant therapy and is currently on intravenous steroids, which initially provided relief. She occasio nael uses insulin to manage elevated blood glucose levels. Ther has been discussion of plasmapheresis treatment at [facility]. She reports lesions on her feet and back, which initially presented as a rash in her left leg, initially mistaken for a spider bite. Her primary care physician, Dr. Iesha Daniels at [facility], prescribed steroids and antibiotics, which initially provided relief. She denies any history of dyspnea associated with her Chronic Obstructive Pulmonary Disease (COPD). She has a severe deviated septum, which results in difficulty breathing, with one side n early being completely blocked. Supplemental Information She has asthma. PHYSICAL EXAM The patient's neck is slightly tight. She has a dialysis port and a central line on the right chest for dialysis. Some decreased breath sounds on the right side of the lungs. There is a bruise over the patient's left dorsum of the hand, likely related to an IV. No synovitis is observed. Pitting edema is present in both legs, about 1 to 2 plus. Scabs are present mostly on her left foot and one small scab on the left ankle with significant feet and ankle edema, about 2 plus. No scattered lesions are present. There is one other small scab noted in the left lower back. RESULTS Laboratory Studies White cell count was high at 18.7. Hemoglobin low at 9.3. Labs from 07/05/2023 showed a high white cell count of 26.1, hemoglobin low at 8. AST high at 98, ALT high at 40, ALK phos 132. Rheumatoid factor slightly high at 27. KATIE negative. C-ANCA positive at 1: 80. P-ANCA negative. Double strength DNA negative. Glomerular basement membrane negative. Complements normal. Lyme antibody panel negative. Hepatitis A, B, and C negative. Serum immunofixation showed a small paraprotein in the beta region. Most recent creatinine from 07/05/2023 was 5.1. Uric acid was high at 8.4. Ferritin was high at 995. Last sed rate was 48 on June 29. ASSESSMENT AND PLAN 1. 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 A kidney biopsy has been recommended for the patient. Should the kidney biopsy confirm vasculitis, the patient has been instructed to contact me immediately. Until then she will continue IV steroids through nephrology. There is a possible plan to send her to [facility] for plasmapheresis. At this time I will hold off on doing anything actively and I have told the patient to follow-up with me as an outpatient once we have a confirmed diagnosis. If for any reason the patient is unable to get a biopsy because of anticoagulation I will consider tavnadiaos as an outpatient, if kidney biopsy confirms vasculitis Rituxan would be a better option.
--- NOTE | 2023-07-06 11:09 | P.PN ---
Subjective patient is seen for follow-up for acute kidney injury. 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 Status post IV steroids. Started hemodialysis on 07/01/2023 for progressive acute kidney injury. Patient developed worsening shortness of breath and had a VQ scan performed which showed high likelihood for PE. Currently patient is maintained on IV heparin. heart rate is better controlled. This morning patient is awake and tolerating oral intake. She states she is feeling much better. Scheduled for hemodialysis today. Urine output remains low. Objective - Vital Signs Vital signs: Vital Signs Temp 97.7 F 07/06/23 08:00 Pulse 77 07/06/23 09:30 Resp 18 07/06/23 08:00 BP 127/87 07/06/23 08:00 Pulse Ox 96 07/06/23 08:00 FiO2 Intake & Output 07/05/23 07/06/23 07/06/23 18:59 06:59 18:59 Intake Total 327.111 240 139.155 Balance 327.111 240 139.155 Weight 72.7 kg Intake: Intake, IV Titration 147.111 139.155 Amount Heparin Sod,Pork in 0.45% 147.111 139.155 NaCl 25,000 unit In 0.45 % NaCl 1 250ml.bag @ 18 UNITS/KG/HR 12.888 mls/hr IV .[id number] [facility] Rx#: [id number] Oral 180 240 Other: Voiding Method Toilet Toilet Toilet # Voids 1 1 - Exam Patient is awake. Comfortable. No acute distress. Alert oriented 3. No acute distress Examination of the heart S1 and S2 Examination of the lungs bilateral breath sounds are heard Abdomen is soft nontender Examination of lower extremity shows no significant edema. MOTION PICTURE NARRATOR exam grossly intact - Labs CBC & Chem 7: 07/06/23 08:26 07/06/23 08:26 Labs: Abnormal Lab Results - Last 24 Hours (Table) 07/05/23 07/05/23 07/05/23 Range/Units 12:48 19:04 19:52 WBC (3.8-10.6) k/uL RBC (3.80-5.40) m/uL Hgb (11.4-16.0) gm/dL Hct (34.0-46.0) % MCHC (31.0-37.0) g/dL RDW (11.5-15.5) % Neutrophils # (1.3-7.7) k/uL APTT 69.8 H (22.0-30.0) sec Sodium (137-145) mmol/L Chloride (98-107) mmol/L Carbon Dioxide (22-30) mmol/L BUN (7-17) mg/dL Creatinine (0.52-1.04) mg/dL POC Glucose (mg/dL) 55 L (70-110) mg/dL Calcium (8.4-10.2) mg/dL AST (14-36) U/L ALT (4-34) U/L Alkaline Phosphatase (38-126) U/L Troponin I 1.900 H* (0.000-0.034) ng/mL Total Protein (6.3-8.2) g/dL Albumin (3.5-5.0) g/dL 07/05/23 07/06/23 07/06/23 Range/Units 20:14 08:26 08:26 WBC 20.0 H (3.8-10.6) k/uL RBC 3.07 L (3.80-5.40) m/uL Hgb 8.1 L (11.4-16.0) gm/dL Hct 26.8 L (34.0-46.0) % MCHC 30.4 L (31.0-37.0) g/dL RDW 16.1 H (11.5-15.5) % Neutrophils # 16.9 H (1.3-7.7) k/uL APTT (22.0-30.0) sec Sodium 130 L (137-145) mmol/L Chloride 91 L (98-107) mmol/L Carbon Dioxide 21 L (22-30) mmol/L BUN 73 H (7-17) mg/dL Creatinine 6.06 H (0.52-1.04) mg/dL POC Glucose (mg/dL) 55 L (70-110) mg/dL Calcium 7.7 L (8.4-10.2) mg/dL AST 559 H (14-36) U/L ALT 328 H (4-34) U/L Alkaline Phosphatase 174 H (38-126) U/L Troponin I (0.000-0.034) ng/mL Total Protein 5.4 L (6.3-8.2) g/dL Albumin 2.8 L (3.5-5.0) g/dL 07/06/23 Range/Units 08:26 WBC (3.8-10.6) k/uL RBC (3.80-5.40) m/uL Hgb (11.4-16.0) gm/dL Hct (34.0-46.0) % MCHC (31.0-37.0) g/dL RDW (11.5-15.5) % Neutrophils # (1.3-7.7) k/uL APTT 87.9 H (22.0-30.0) sec Sodium (137-145) mmol/L Chloride (98-107) mmol/L Carbon Dioxide (22-30) mmol/L BUN (7-17) mg/dL Creatinine (0.52-1.04) mg/dL POC Glucose (mg/dL) (70-110) mg/dL Calcium (8.4-10.2) mg/dL AST (14-36) U/L ALT (4-34) U/L Alkaline Phosphatase (38-126) U/L Troponin I (0.000-0.034) ng/mL Total Protein (6.3-8.2) g/dL Albumin (3.5-5.0) g/dL Assessment and Plan Assessment: 1. 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 No hydronephrosis noted on kidney ultrasound. Creatinine 8.13 dated July 01, 2023. Creatinine 0.8 in January 2023. UA does show 1+ protein and RBCs as well as RBC casts. Repeat UA shows protein and blood as well. UPC 1.44 g. Started on hemodialysis on 07/01/2023. Scheduled for hemodialysis in a.m. Status post Solu-Medrol over the weekend. Kidney biopsy canceled yesterday as patient was unstable. 2. Metabolic acidosis secondary to acute kidney injury. status post bicarb drip. improved with hemodialysis 3. Anemia. Iron deficiency noted. 4. SVT being followed by cardiology, improved with IV Lopressor 5. High suspicion for PE left lung, maintained on IV heparin. Small left leg D VT noted on venous Dopplers. Plan: continue with steroids Hemodialysis today Recommend to transfer patient to tertiary care center. At this time there is no urgent need for plasmapheresis. A kidney biopsy however should be performed PAMELA. Will try to schedule for today.
[2023-07-06 11:14] LABS: Glucose,Whole Blood 129 mg/dL (70-110)
--- NOTE | 2023-07-06 12:03 | P.PN ---
Subjective Progress Note Date: 07/06/23 CHIEF COMPLAINT: Weakness and muscle pain HISTORY OF PRESENT ILLNESS: Patient with skin rash bilateral feet. Concerns for vasculitis. Patient being transferred to [facility]. They are awaiting bed placement. Patient reports her breathing is slightly better today. She does remain on IV heparin. WBC 20 Hgb 8.1 creatinine 6.06 elevated liver enzymes PHYSICAL EXAM: VITAL SIGNS: Reviewed. GENERAL: no acute distress. ABDOMEN: Soft. Nondistended. Nontender. ASSESSMENT: 1. Rash bilateral lower extremities. Possible vasculitis 2. Possible PE and left DVT 3. DENICE PLAN: -Transfer to [facility] in progress. They are awaiting bed availability -Holding off on skin biopsy of rash since patient is being transferred Physician Rand Butter note has been reviewed by physician. Signing provider agrees with the documented findings, assessment, and plan of care. Objective - Vital Signs Vital signs: Vital Signs Temp 97.7 F 07/06/23 08:00 Pulse 77 07/06/23 09:30 Resp 18 07/06/23 08:00 BP 127/87 07/06/23 08:00 Pulse Ox 96 07/06/23 08:00 FiO2 Intake & Output 07/05/23 07/06/23 07/06/23 18:59 06:59 18:59 Intake Total 327.111 240 139.155 Balance 327.111 240 139.155 Weight 72.7 kg Intake: Intake, IV Titration 147.111 139.155 Amount Heparin Sod,Pork in 0.45% 147.111 139.155 NaCl 25,000 unit In 0.45 % NaCl 1 250ml.bag @ 18 UNITS/KG/HR 12.888 mls/hr IV .[id number] [facility] Rx#: [id number] Oral 180 240 0 Other: Voiding Method Toilet Toilet Toilet # Voids 1 1 - Labs CBC & Chem 7: 07/06/23 08:26 07/06/23 08:26 Labs: Abnormal Lab Results - Last 24 Hours (Table) 07/05/23 07/05/23 07/05/23 Range/Units 12:48 19:04 19:52 WBC (3.8-10.6) k/uL RBC (3.80-5.40) m/uL Hgb (11.4-16.0) gm/dL Hct (34.0-46.0) % MCHC (31.0-37.0) g/dL RDW (11.5-15.5) % Neutrophils # (1.3-7.7) k/uL APTT 69.8 H (22.0-30.0) sec Sodium (137-145) mmol/L Chloride (98-107) mmol/L Carbon Dioxide (22-30) mmol/L BUN (7-17) mg/dL Creatinine (0.52-1.04) mg/dL POC Glucose (mg/dL) 55 L (70-110) mg/dL Calcium (8.4-10.2) mg/dL AST (14-36) U/L ALT (4-34) U/L Alkaline Phosphatase (38-126) U/L Troponin I 1.900 H* (0.000-0.034) ng/mL Total Protein (6.3-8.2) g/dL Albumin (3.5-5.0) g/dL 07/05/23 07/06/23 07/06/23 Range/Units 20:14 08:26 08:26 WBC 20.0 H (3.8-10.6) k/uL RBC 3.07 L (3.80-5.40) m/uL Hgb 8.1 L (11.4-16.0) gm/dL Hct 26.8 L (34.0-46.0) % MCHC 30.4 L (31.0-37.0) g/dL RDW 16.1 H (11.5-15.5) % Neutrophils # 16.9 H (1.3-7.7) k/uL APTT (22.0-30.0) sec Sodium 130 L (137-145) mmol/L Chloride 91 L (98-107) mmol/L Carbon Dioxide 21 L (22-30) mmol/L BUN 73 H (7-17) mg/dL Creatinine 6.06 H (0.52-1.04) mg/dL POC Glucose (mg/dL) 55 L (70-110) mg/dL Calcium 7.7 L (8.4-10.2) mg/dL AST 559 H (14-36) U/L ALT 328 H (4-34) U/L Alkaline Phosphatase 174 H (38-126) U/L Troponin I (0.000-0.034) ng/mL Total Protein 5.4 L (6.3-8.2) g/dL Albumin 2.8 L (3.5-5.0) g/dL 07/06/23 07/06/23 Range/Units 08:26 11:12 WBC (3.8-10.6) k/uL RBC (3.80-5.40) m/uL Hgb (11.4-16.0) gm/dL Hct (34.0-46.0) % MCHC (31.0-37.0) g/dL RDW (11.5-15.5) % Neutrophils # (1.3-7.7) k/uL APTT 87.9 H (22.0-30.0) sec Sodium (137-145) mmol/L Chloride (98-107) mmol/L Carbon Dioxide (22-30) mmol/L BUN (7-17) mg/dL Creatinine (0.52-1.04) mg/dL POC Glucose (mg/dL) 129 H (70-110) mg/dL Calcium (8.4-10.2) mg/dL AST (14-36) U/L ALT (4-34) U/L Alkaline Phosphatase (38-126) U/L Troponin I (0.000-0.034) ng/mL Total Protein (6.3-8.2) g/dL Albumin (3.5-5.0) g/dL
--- NOTE | 2023-07-06 14:52 | P.PN ---
Subjective Progress Note Date: 07/06/23 This is a very pleasant 62-year-old female patient with a known history of chronic tobacco dependence, chronic obstructive pulmonary disease who she was told about COPD from a shoe sticks repairer while in [place]. Has been maintained on Trelegy and albuterol. She presented here to the emergency room on 06/29/2023 with a 1 month history of progressive weakness and body aches and pains. She had developed poor appetite and was not eating or drinking much she was having issues with vomiting. Initial labs revealed a white count of 18.7. Hemoglobin 9.3. Platelets 665. Sodium 136. Potassium 4.9. Bicarb 18. BUN 73 and a creatinine of 7.02. Glucose 105. Urinalysis was cloudy with moderate blood and high RBCs. Renal ultrasound revealed no significant hydronephrosis. Been seen by nephrology who felt her acute kidney injury was secondary to acute tubular necrosis. There were in the process of ruling out glomerulonephritis. The plan is for kidney biopsy on 07/05/2023. She did have a double-lumen hemodialysis catheter placed in the right internal jugular. He was initiated on hemodialysis yesterday. Work today reveals a white count of 14.0. Hemoglobin 8.3. Platelets 533. Sodium 134. Potassium 4.3. Bicarb 31. BUN 48. Creatinine 5.62. She was found to have a positive C ANCA of 1:80 ratio and high rheumatoid factor of 27. Developed increasing shortness of breath today and we are c onsulted. She is seen on the regular medical floor. She is currently resting in bed. Awake and alert in no acute distress. She is maintaining O2 saturations in the 90s on room air. He is still having 9 body aches and pains. Urine culture revealed no growth. Blood cultures revealed no growth. Been initiated on Symbicort 80, Ventolin HFA every 6 as needed. She is on ceftriaxone. She is on desmopressin. Receiving iron supplements. Heparin for DVT prophylaxis. She will get methylprednisone 1 g IV piggyback daily for 3 days. Chest x-ray reveals no acute cardiopulmonary process. CT scan of the abdomen reveals a small right pleural effusion and small volume of associated atelectasis. Diverticulosis of the sigmoid colon but no diverticulitis. Progress note dated July 03, 2023. 62-year-old female that we saw yesterday in consultation. She does have a history of COPD, and follows with a shoe sticks repairer in [place]. She presented to the emergency department on June 28, with weakness, body aches, and pains. The patient was noted to have a worsening renal function, rather acute, and, had hematuria. The patient had a c-ANCA performed that was positive. The patient was thought to possibly have a acute vasculitis. The c-ANCA test was positive with a titer of 1:80. The manufacturing associate following the patient, was going to start the patient on high-dose Solu-Medrol, 1 g every day for 3 days. In addition, the patient is apparently scheduled to have a renal biopsy, early next week. Currently, the patient is doing reasonably well. She is on her second dose of Solu-Medrol. She is getting oxygen at 3 L by nasal cannula. She continues on Rocephin. She has got saline at KVO. She is stable from the pulmonary standpoint. Current labs include a white count 10.8, hemoglobin 8.2, hematocrit 27.2, and platelet count 475,000. Sodium 134, potassium 4.6, chloride 97, CO2 30, BUN 30, creatinine 4.14. Albumin is 2.6. Total protein is 5.4. CT of the abdomen pelvis reveals a small right pleural effusion, and evidence of diverticulosis. Progress note dated July 04, 2023. The patient is seen today in room 353. She was seen in consultation 2 days ago. The patient does have an established history of COPD. She was admitted with acute kidney injury, thought to possibly have a vasculitis. Her C ANCA, was positive. She was started on high-dose corticosteroids, by nephrology. From the pulmonary standpoint, she is doing about the same, or better. She does continue on 3 L of oxygen. She is not receiving any IV fluids. She is using her Trelegy, which is at the bedside. Current labs include a white count 20.2, hemoglobin 7.8, macro 25.5, and a platelet count of 473,000. Sodium 131, potassium 4.2, chlorides 93, CO2 30, BUN 30, creatinine 3.38. Glucose is 143. Albumin 2.8. 07/05/2023, the patient is awake and alert and she has no specific complaints.. No altered mentation. She is feeling a bit fatigued. The plan is to transfer the patient to a tertiary care center regarding her ongoing suspected vasculitis and renal failure. In terms of her respiratory status, the patient is on 2 L of oxygen by nasal cannula with a pulse ox of 93%. Denies having any major respiratory difficulties. Her VQ scan was positive for multiple perfusion defects with a large peripheral based defect seen in the left midlung. The Doppler of the lower extremity that was done showed a complex area in the right knee without evidence of any DVT. And this was consistent with with a cyst, a popliteal cyst. There was also suspicious finding of a left peroneal DVT. The patient currently remains on IV heparin. Blood work from today shows a WBC count of 26, hemoglobin is at 8 and a platelet count of 436. BUN is 48 with a creatinine of 5.11 and sodium levels at 131. Nephrology on the case and as mentioned, a biopsy of the kidney will be needed and the patient is being considered for transfer. She is scheduled for hemodialysis this morning. Meanwhile, the patient remains on IV Rocephin as an empiric antibiotic coverage. The patient is also on 60 mg of prednisone on a daily basis. On today's evaluation of 07/06/2023, I am seeing the patient for a follow-up. The patient is doing well. No specific complaints. None She is currently 2 L of oxygen by nasal cannula with a pulse ox of 95%. She is currently on IV heparin. The plan is to transfer this patient to [facility] for further evaluation of her renal failure including the possibility of a c-ANCA vasculitis. No interval worsening shortness of breath. She remains on high- dose prednisone as the dose of 60 mg p.o. daily. No other complaints otherwise for now patient is resting comfortably in bed. Nephrology on the case. Patient is being dialyzed periodically. Objective - Vital Signs Vital signs: Vital Signs Temp 97.7 F 07/06/23 08:00 Pulse 77 07/06/23 09:30 Resp 18 07/06/23 08:00 BP 127/87 07/06/23 08:00 Pulse Ox 96 07/06/23 08:00 FiO2 Intake & Output 07/05/23 07/06/23 07/06/23 18:59 06:59 18:59 Intake Total 327.111 240 139.155 Balance 327.111 240 139.155 Weight 72.7 kg Intake: Intake, IV Titration 147.111 139.155 Amount Heparin Sod,Pork in 0.45% 147.111 139.155 NaCl 25,000 unit In 0.45 % NaCl 1 250ml.bag @ 18 UNITS/KG/HR 12.888 mls/hr IV .[id number] [facility] Rx#: [id number] Oral 180 240 Other: Voiding Method Toilet Toilet Toilet # Voids 1 1 - Exam No acute distress, oriented 3. The patient is currently on 2 L nasal cannula. No obvious respiratory distress. HEENT examination is grossly unremarkable. Mucous membranes are moist. No oral lesions. Neck supple. Full range of motion. No adenopathy thyromegaly or neck vein distention. Cardiovascular examination reveals regular rhythm rate. S1-S2 normal. No S3 or S4. No discernible murmur noted. Lungs reveal clear breath sounds. Breath sounds are equal bilaterally. No adv entitious lung sounds including wheezes rhonchi or crackles. Abdomen soft bowel sounds are heard. No masses or tenderness. Extremities are intact. No cyanosis clubbing or edema. Skin is without rash or lesion. Neurologic examination is brief but nonfocal. - Labs CBC & Chem 7: 07/06/23 08:26 07/06/23 08:26 Labs: Abnormal Lab Results - Last 24 Hours (Table) 07/05/23 07/05/23 07/05/23 Range/Units 12:48 19:04 19:52 WBC (3.8-10.6) k/uL RBC (3.80-5.40) m/uL Hgb (11.4-16.0) gm/dL Hct (34.0-46.0) % MCHC (31.0-37.0) g/dL RDW (11.5-15.5) % Neutrophils # (1.3-7.7) k/uL APTT 69.8 H (22.0-30.0) sec Sodium (137-145) mmol/L Chloride (98-107) mmol/L Carbon Dioxide (22-30) mmol/L BUN (7-17) mg/dL Creatinine (0.52-1.04) mg/dL POC Glucose (mg/dL) 55 L (70-110) mg/dL Calcium (8.4-10.2) mg/dL AST (14-36) U/L ALT (4-34) U/L Alkaline Phosphatase (38-126) U/L Troponin I 1.900 H* (0.000-0.034) ng/mL Total Protein (6.3-8.2) g/dL Albumin (3.5-5.0) g/dL 07/05/23 07/06/23 07/06/23 Range/Units 20:14 08:26 08:26 WBC 20.0 H (3.8-10.6) k/uL RBC 3.07 L (3.80-5.40) m/uL Hgb 8.1 L (11.4-16.0) gm/dL Hct 26.8 L (34.0-46.0) % MCHC 30.4 L (31.0-37.0) g/dL RDW 16.1 H (11.5-15.5) % Neutrophils # 16.9 H (1.3-7.7) k/uL APTT (22.0-30.0) sec Sodium 130 L (137-145) mmol/L Chloride 91 L (98-107) mmol/L Carbon Dioxide 21 L (22-30) mmol/L BUN 73 H (7-17) mg/dL Creatinine 6.06 H (0.52-1.04) mg/dL POC Glucose (mg/dL) 55 L (70-110) mg/dL Calcium 7.7 L (8.4-10.2) mg/dL AST 559 H (14-36) U/L ALT 328 H (4-34) U/L Alkaline Phosphatase 174 H (38-126) U/L Troponin I (0.000-0.034) ng/mL Total Protein 5.4 L (6.3-8.2) g/dL Albumin 2.8 L (3.5-5.0) g/dL 07/06/23 07/06/23 Range/Units 08:26 11:12 WBC (3.8-10.6) k/uL RBC (3.80-5.40) m/uL Hgb (11.4-16.0) gm/dL Hct (34.0-46.0) % MCHC (31.0-37.0) g/dL RDW (11.5-15.5) % Neutrophils # (1.3-7.7) k/uL APTT 87.9 H (22.0-30.0) sec Sodium (137-145) mmol/L Chloride (98-107) mmol/L Carbon Dioxide (22-30) mmol/L BUN (7-17) mg/dL Creatinine (0.52-1.04) mg/dL POC Glucose (mg/dL) 129 H (70-110) mg/dL Calcium (8.4-10.2) mg/dL AST (14-36) U/L ALT (4-34) U/L Alkaline Phosphatase (38-126) U/L Troponin I (0.000-0.034) ng/mL Total Protein (6.3-8.2) g/dL Albumin (3.5-5.0) g/dL Assessment and Plan Plan: Pulmonary embolism with a high probability VQ scan and the left peroneal DVT, currently on IV heparin. Acute hypoxic respiratory failure currently on 2 L of O2 nasal cannula Generalized weakness with associated nausea and vomiting for several days with poor appetite and poor oral intake. Acute kidney injury with an elevated creatinine, hemodialysis scheduled for today. 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 daily. Plan is for kidney biopsy. Chronic obstructive pulmonary disease. Chronic tobacco dependence. Leukocytosis, likely reactive Plan: Hemodialysis today no change in treatment plan and the plan is to transfer this patient to [facility]. Continue prednisone at a dose of 60 mg p.o. daily Monitor renal function Continue IV heparin The patient is being considered to be transferred to another facility regarding the need for a kidney biopsy and further investigation for a C ANCA vasculitis. Hemodialysis today We will continue to follow the patient, make recommendations along the way. Prognosis is guarded. Respiratory status is reasonably stable.
[2023-07-06 16:13] LABS: Glucose,Whole Blood 134 mg/dL (70-110)
[2023-07-06 18:10] VITALS: TEMP 97.5
[2023-07-06 19:46] LABS: Glucose,Whole Blood 144 mg/dL (70-110)
[2023-07-06 20:41] VITALS: BP 122/79; PULSE 105; RESP 18
--- NOTE | 2023-07-13 15:56 | P.PN ---
Subjective Progress Note Date: 07/06/23 Principal diagnosis: Reason for follow-up is rash and leukocytosis Patient is a 62-year female presented to hospital with muscle weakness fatigue has been diagnosed with acute renal failure also have a rash concerning for vasculitis versus infectious etiology prompting this consultation. On today's evaluation that is 07/06/2023,the patient remains to be afebrile, pat ient is on 2 L nasal cannula supplemental oxygen and denies any shortness of breath no chest pain or cough.Patient denies having any nausea or vomiting, no abdominal pain and no diarrhea has been reported no new rash. Patient white count of 20,000, creatinine 6.06 cultures negative Objective - Vital Signs Vital signs: Vital Signs Temp 97.7 F 07/06/23 08:00 Pulse 74 07/06/23 12:15 Resp 18 07/06/23 13:45 BP 127/85 07/06/23 12:00 Pulse Ox 95 07/06/23 12:00 FiO2 Intake & Output 07/05/23 07/06/23 07/06/23 18:59 06:59 18:59 Intake Total 327.111 240 139.155 Balance 327.111 240 139.155 Weight 72.7 kg Intake: Intake, IV Titration 147.111 139.155 Amount Heparin Sod,Pork in 0.45% 147.111 139.155 NaCl 25,000 unit In 0.45 % NaCl 1 250ml.bag @ 18 UNITS/KG/HR 12.888 mls/hr IV .[id number] [facility] Rx#: [id number] Oral 180 240 0 Other: Voiding Method Toilet Toilet Toilet # Voids 1 1 - Exam GENERAL DESCRIPTION: Middle-aged female lying in bed in no distress RESPIRATORY SYSTEM: Unlabored breathing , decreased breath sounds at bases HEART: S1 S2 regular rate and rhythm , ABDOMEN: Soft , no tenderness EXTREMITIES: No edema feet - Labs CBC & Chem 7: 07/06/23 08:26 07/06/23 08:26 Labs: Abnormal Lab Results - Last 24 Hours (Table) 07/05/23 07/05/23 07/05/23 Range/Units 19:04 19:52 20:14 WBC (3.8-10.6) k/uL RBC (3.80-5.40) m/uL Hgb (11.4-16.0) gm/dL Hct (34.0-46.0) % MCHC (31.0-37.0) g/dL RDW (11.5-15.5) % Neutrophils # (1.3-7.7) k/uL APTT 69.8 H (22.0-30.0) sec Sodium (137-145) mmol/L Chloride (98-107) mmol/L Carbon Dioxide (22-30) mmol/L BUN (7-17) mg/dL Creatinine (0.52-1.04) mg/dL POC Glucose (mg/dL) 55 L 55 L (70-110) mg/dL Calcium (8.4-10.2) mg/dL AST (14-36) U/L ALT (4-34) U/L Alkaline Phosphatase (38-126) U/L Total Protein (6.3-8.2) g/dL Albumin (3.5-5.0) g/dL 07/06/23 07/06/23 07/06/23 Range/Units 08:26 08:26 08:26 WBC 20.0 H (3.8-10.6) k/uL RBC 3.07 L (3.80-5.40) m/uL Hgb 8.1 L (11.4-16.0) gm/dL Hct 26.8 L (34.0-46.0) % MCHC 30.4 L (31.0-37.0) g/dL RDW 16.1 H (11.5-15.5) % Neutrophils # 16.9 H (1.3-7.7) k/uL APTT 87.9 H (22.0-30.0) sec Sodium 130 L (137-145) mmol/L Chloride 91 L (98-107) mmol/L Carbon Dioxide 21 L (22-30) mmol/L BUN 73 H (7-17) mg/dL Creatinine 6.06 H (0.52-1.04) mg/dL POC Glucose (mg/dL) (70-110) mg/dL Calcium 7.7 L (8.4-10.2) mg/dL AST 559 H (14-36) U/L ALT 328 H (4-34) U/L Alkaline Phosphatase 174 H (38-126) U/L Total Protein 5.4 L (6.3-8.2) g/dL Albumin 2.8 L (3.5-5.0) g/dL 07/06/23 Range/Units 11:12 WBC (3.8-10.6) k/uL RBC (3.80-5.40) m/uL Hgb (11.4-16.0) gm/dL Hct (34.0-46.0) % MCHC (31.0-37.0) g/dL RDW (11.5-15.5) % Neutrophils # (1.3-7.7) k/uL APTT (22.0-30.0) sec Sodium (137-145) mmol/L Chloride (98-107) mmol/L Carbon Dioxide (22-30) mmol/L BUN (7-17) mg/dL Creatinine (0.52-1.04) mg/dL POC Glucose (mg/dL) 129 H (70-110) mg/dL Calcium (8.4-10.2) mg/dL AST (14-36) U/L ALT (4-34) U/L Alkaline Phosphatase (38-126) U/L Total Protein (6.3-8.2) g/dL Albumin (3.5-5.0) g/dL Assessment and Plan (1) Rash Status: Acute Code(s): R21 - RASH AND OTHER NONSPECIFIC SKIN ERUPTION SNOMED Code(s): 054983758 (2) Leukocytosis Status: Acute Code(s): D72.829 - ELEVATED WHITE BLOOD CELL COUNT, UNSPECIFIED SNOMED Code(s): 615194474 Plan: 1patient did have a very mild petechial rash to the lower extremity in this patient admitted to hospital with generalized weakness fatigue and acute renal failure clinical suspicion low for any infectious etiology 2-did have a positive UA however culture has been negative 3-leukocytosis likely steroid related as no evidence of any worsening infection and the patient white count is trending down 4-rash more likely vasculitis clinic doubt infectious etiology currently waiting for possible transfer to tertiary care Questions answered Dictation was produced using [employer] software. please excuse any grammatical, word or spelling errors. Time with Patient: Less than 30
== END 2023-07-06 21:22 | disposition short-term general hospital (02) | DRG 346 ==
LOC: EC 12:31 → 5NMEDONC 20:39 → 3SCARD 06-30 01:08
PROVIDERS: ADMIT Internal Medicine; ATTEND Internal Medicine
PROC: 02HV33Z Insertion of Infusion Device into Superior Vena Cava, Percutaneous Approach (ICD-10-PCS; principal; 2023-07-01 10:10)
PROC: 5A1D70Z Performance of Urinary Filtration, Intermittent, Less than 6 Hours Per Day (ICD-10-PCS; 2023-07-01 10:10)
DX: I77.82 Antineutrophilic cytoplasmic antibody [ANCA] vasculitis (principal); N17.0 Acute kidney failure with tubular necrosis; I26.99 Other pulmonary embolism without acute cor pulmonale; J96.01 Acute respiratory failure with hypoxia; I42.9 Cardiomyopathy, unspecified; I82.452 Acute embolism and thrombosis of left peroneal vein; I77.6 Arteritis, unspecified; E87.20 Acidosis, unspecified; I47.19 Other supraventricular tachycardia; J44.89 Other specified chronic obstructive pulmonary disease; I08.3 Combined rheumatic disorders of mitral, aortic and tricuspid valves; D50.9 Iron deficiency anemia, unspecified; N39.0 Urinary tract infection, site not specified; J34.2 Deviated nasal septum; R74.01 Elevation of levels of liver transaminase levels; K57.30 Diverticulosis of large intestine without perforation or abscess without bleeding; R31.9 Hematuria, unspecified; M71.21 Synovial cyst of popliteal space [Baker], right knee; M62.81 Muscle weakness (generalized); Z79.51 Long term (current) use of inhaled steroids; Z87.891 Personal history of nicotine dependence; Z79.899 Other long term (current) drug therapy
CPT/HCPCS: 36415; 36558; 36600; 71045; 71046; 74176; 76770; 76937; 77001; 78580; 80048; 80053; 80074; 81001; 82550; 82570; 82728; 82805; 83516; 83540; 83550; 83605; 83735; 84100; 84156; 84165; 84443; 84484; 84550; 85025; 85379; 85610; 85652; 85730; 86038; 86140; 86160; 86162; 86225; 86255; 86334; 86335; 86431; 86618; 86850; 86900; 86901; 87040; 87086; 87205; 90935; 93005; 93306; 93970; 94640; 96361; 96365; 96366; 96372; 96375; 99285

== ENCOUNTER → 2023-08-26 | Outpatient (CLI) | payer OTHER ==
[2023-08-26 08:22] VITALS: RESP 16; TEMP 97.8
[2023-08-26] MEDS: diphenhydrAMINE 50 MG/ML 1 ML VIAL IVP NR (08:35)
[2023-08-26] MEDS: methylPREDNISolone SOD SUCCI 125 MG/2 ML VIAL IVP NR (08:35)
[2023-08-26] MEDS: SODIUM CHLORIDE 0.9% 500 ML 500 ML in EMPTY BAG 1 BAG IV PRN (08:35)
[2023-08-26] MEDS: ACETAMINOPHEN TAB 325 MG TAB PO NR (08:35)
[2023-08-26] MEDS: SODIUM CHLORIDE 0.9% IV NR (08:57)
[2023-08-26] MEDS: RITUXIMAB ABBS IV NR (08:57)
[2023-08-26 10:21] VITALS: BP 166/89; PULSE 83
== END ==
LOC: PROCWHC3 07:51
PROVIDERS: ATTEND Nurse Practitioner Family
DX: I77.82 Antineutrophilic cytoplasmic antibody [ANCA] vasculitis (principal)
CPT/HCPCS: 96375; 96413; 96415; J1200; J2919; Q5115

== ENCOUNTER 2023-09-21 13:39 | Inpatient (IN) | payer OTHER ==
[2023-09-21] MEDS: LORazepam 2 MG/ML INJ IV STA (13:44)
--- NOTE | 2023-09-21 13:45 | ED ---
General Adult HPI - General Stated complaint: Respitory Distress Time Seen by Provider: 09/21/23 13:41 Source: patient, EMS, RN notes reviewed Mode of arrival: EMS Limitations: physical limitation - History of Present Illness Initial comments: Patient is a 63-year-old female presenting to the emergency department respiratory distress by EMS. Onset of symptoms was just this morning. Similar symptoms previously associated with COPD. No fever. Minimal cough. No calf pain or swelling. Patient did finish dialysis that was short-term, 2 weeks ago. - Related Data Home Medications Medication Instructions Recorded Confirmed Albuterol Sulfate [Ventolin HFA] 2 puff INHALATION RT-Q6H PRN 06/29/23 08/26/23 Cholecalciferol [Vitamin D3 (25 25 mcg PO DAILY 06/29/23 08/26/23 Mcg = 1000 Iu)] Cyanocobalamin (Vitamin B-12) 1,000 mcg PO DAILY 06/29/23 08/26/23 [Vitamin B-12] Fluticasone/Umeclidin/Vilanter 1 puff INHALATION RT-DAILY 06/29/23 08/26/23 [Trelegy Ellipta 200-62.5-25] Multivit-Min/FA/Lycopen/Lutein 1 tab PO DAILY 06/29/23 08/26/23 [Centrum Silver Tablet] Furosemide [Lasix] 1 tab PO DAILY 08/26/23 08/26/23 Isosorbide Dinitrate [Isordil] 1 tab PO DAILY 08/26/23 08/26/23 Ondansetron [Zofran] 1 tab PO QID PRN 08/26/23 08/26/23 Pantoprazole [Protonix] 1 tab PO DAILY 08/26/23 08/26/23 Sulfamethox-Tmp 800-160Mg [Bactrim 1 tab PO DIRECTED 08/26/23 08/26/23 DS 800-160 mg] Tiotropium 18 Mcg/Puff [Spiriva] 2 puff INHALATION DAILY 08/26/23 08/26/23 Warfarin [Coumadin] 1 tab PO DAILY 08/26/23 08/26/23 carvediloL [Coreg] 1 tab PO BID 08/26/23 08/26/23 guaiFENesin [guaiFENesin Oral 100 mg PO DAILY 08/26/23 08/26/23 Solution] predniSONE [Deltasone] 3 tab PO DAILY 08/26/23 08/26/23 Allergies Allergy/AdvReac Type Severity Reaction Status Date / Time No Known Allergies Allergy Verified 09/21/23 13:49 Review of Systems ROS Statement: Those systems with pertinent positive or pertinent negative responses have been documented in the HPI. ROS Other: All systems not noted in ROS Statement are negative. Constitutional: Denies: fever Eyes: Denies: eye pain ENT: Denies: ear pain Respiratory: Reports: as per HPI, dyspnea, wheezes Cardiovascular: Denies: chest pain Endocrine: Denies: fatigue Gastrointestinal: Denies: abdominal pain Musculoskeletal: Denies: back pain Skin: Denies: rash Past Medical History Past Medical History: COPD History of Any Multi-Drug Resistant Organisms: None Reported Additional Past Surgical History / Comment(s): dialysis port inserted Past Psychological History: No Psychological Hx Reported Smoking Status: Former smoker General Exam Limitations: no limitations General appearance: alert, anxious Head exam: Present: normocephalic Eye exam: Present: normal appearance Neck exam: Present: normal inspection Respiratory exam: Present: respiratory distress, wheezes, decreased breath sounds Cardiovascular Exam: Present: regular rate, normal rhythm GI/Abdominal exam: Present: soft. Absent: tenderness Extremities exam: Present: normal inspection. Absent: pedal edema, calf tenderness Neurological exam: Present: alert Psychiatric exam: Present: normal affect, normal mood Skin exam: Present: normal color Course Vital Signs 09/21/23 09/21/23 09/21/23 13:45 14:04 14:11 Temperature 97.3 F L Pulse Rate 145 H 118 H 112 H Respiratory 28 H Rate Blood Pressure 168/110 O2 Sat by Pulse 98 Oximetry Fraction of 50 Inspired Oxygen (FIO2) 09/21/23 09/21/23 09/21/23 14:30 15:00 15:11 Temperature Pulse Rate 105 H 104 H Respiratory 26 H 27 H Rate Blood Pressure 144/90 148/94 O2 Sat by Pulse 98 98 Oximetry Fraction of 45 Inspired Oxygen (FIO2) 09/21/23 15:28 Temperature Pulse Rate Respiratory Rate Blood Pressure O2 Sat by Pulse Oximetry Fraction of 40 Inspired Oxygen (FIO2) EKG Findings - EKG Results: EKG: interpreted by ERMD, normal axis, normal QRS, normal ST/T EKG shows: tachycardia Medical Decision Making - Medical Decision Making Was pt. sent in by a medical professional or institution (RANDEE Pierce, SENIOR LOAN OFFICER, urgent care, hospital, or shelter...) When possible be specific @ -No Did you speak to anyone other than the patient for history (EMS, parent, family, police, friend...)? What history was obtained from this source @ -EMS provides history as patient's history is limited secondary to dyspnea. They also provided history of medications given Did you review nursing and triage notes (agree or disagree)? Why? @ -I reviewed and agree with nursing and triage notes Were old charts reviewed (outside hosp., previous admission, EMS record, old EKG, old radiological studies, urgent care reports/EKG's, shelter records)? Report findings @ -Previous admission reviewed and x-ray Differential Diagnosis (chest pain, altered mental status, abdominal pain women, abdominal pain men, vaginal bleeding, weakness, fever, dyspnea, syncope, heada mariangel, dizziness, GI bleed, back pain, seizure, CVA, palpatations, mental health, musculoskeletal)? @ -Differential Dyspnea: Coronary syndrome, arrhythmia, tamponade, asthma, COPD, pulmonary embolism, pneumonia, pneumothorax, pulmonary effusion, anaphylaxis, diabetic ketoacidosis, flailed chest, pulmonary contusion, diaphragmatic rupture, anemia, neuromuscular, this is not meant to be an all-inclusive list. EKG interpreted by me (3pts min.). @ -As above X-rays interpreted by me (1pt min.). @ -Chest x-ray shows COPD and interstitial opacities. Previous chest x-ray reviewed. CT interpreted by me (1pt min.). @ -None done U/S interpreted by me (1pt. min.). @ -None done What testing was considered but not performed or refused? (CT, X-rays, U/S, labs)? Why? @ -None What meds were considered but not given or refused? Why? @ -None Did you discuss the management of the patient with other professionals (professionals i.e. RANDEE Pierce, SENIOR LOAN OFFICER, lab, RT, psych nurse, social human services assistants, civil lawyer, teacher, community cultural development officer, block and case maker)? Give summary @ -Case was discussed with Dr. Marrero who will admit covering Dr. Quevedo Was smoking cessation discussed for >3mins.? @ -No Was critical care preformed (if so, how long)? @ -33 minutes critical care time provided Were there social determinants of health that impacted care today? How? (Homelessness, low income, unemployed, alcoholism, drug addiction, tr ansportation, low edu. Level, literacy, decrease access to med. care, halfway, rehab)? @ -No Was there de-escalation of care discussed even if they declined (Discuss DNR or withdrawal of care, Hospice)? DNR status @ -No What co-morbidities impacted this encounter? (DM, HTN, Smoking, COPD, CAD, Cancer, CVA, ARF, Chemo, Hep., AIDS, mental health diagnosis, sleep apnea, morbid obesity)? @ -COPD history Was patient admitted / discharged? Hospital course, mention meds given and route, prescriptions, significant lab abnormalities, going to OR and other pertinent info. @ -Patient presents in respiratory distress, significantly improved with BiPAP. Patient did have CPAP and bag insufflation by EMS. Patient will be admitted with pulmonary consult, admission orders written. Undiagnosed new problem with uncertain prognosis? @ -No Drug Therapy requiring intensive monitoring for toxicity (Heparin, Nitro, Insulin, Cardizem)? @ -No Were any procedures done? @ -No Diagnosis/symptom? @ -COPD, respiratory failure Acute, or Chronic, or Acute on Chronic? @ -Acute, acute Uncomplicated (without systemic symptoms) or Complicated (systemic symptoms)? @ -Default Side effects of treatment? @ -No Exacerbation, Progression, or Severe Exacerbation? @ -Severe exacerbation Poses a threat to life or bodily function? How? (Chest pain, [place], [place], pneumonia, PE, COPD, DKA, ARF, appy, cholecystitis, CVA, Diverticulitis, Homicidal, Suicidal, threat to staff... and all critical care pts) @ -Threat to pulmonary function - Lab Data Result diagrams: 09/21/23 13:50 09/21/23 13:50 Lab Results 09/21/23 09/21/23 09/21/23 Range/Units 13:50 13:50 13:50 WBC 27.9 H (3.8-10.6) k/uL RBC 3.51 L (3.80-5.40) m/uL Hgb 10.5 L (11.4-16.0) gm/dL Hct 33.8 L (34.0-46.0) % MCV 96.0 (80.0-100.0) fL MCH 29.9 (25.0-35.0) pg MCHC 31.2 (31.0-37.0) g/dL RDW 19.8 H (11.5-15.5) % Plt Count 294 (150-450) k/uL MPV 9.6 Neutrophils % (Manual) 72 % Lymphocytes % (Manual) 21 % Monocytes % (Manual) 2 % Metamyelocytes % 4 % Myelocytes % 1 % Neutrophils # (Manual) 20.09 H (1.3-7.7) k/uL Lymphocytes # (Manual) 5.86 H (1.0-4.8) k/uL Monocytes # (Manual) 0.56 (0-1.0) k/uL Metamyelocytes # (Man) 1.12 H (0) k/uL Myelocytes # (Manual) 0.28 H (0) k/uL Nucleated RBCs 0 (0-0) /100 WBC Manual Slide Review Performed Hypochromasia Moderate Anisocytosis Slight Macrocytosis Slight PT 13.4 H (10.0-12.5) sec INR 1.3 H (<1.2) APTT 23.8 (22.0-30.0) sec Sodium 136 L (137-145) mmol/L Potassium 4.3 (3.5-5.1) mmol/L Chloride 98 (98-107) mmol/L Carbon Dioxide 30 (22-30) mmol/L Anion Gap 8 mmol/L BUN 47 H (7-17) mg/dL Creatinine 1.56 H (0.52-1.04) mg/dL Est GFR (CKD-EPI)AfAm 41 (>60 ml/min/1.73 sqM) Est GFR (CKD-EPI)NonAf 36 (>60 ml/min/1.73 sqM) Glucose 196 H (74-99) mg/dL Plasma Lactic Acid Jeyson (0.7-2.0) mmol/L Calcium 8.7 (8.4-10.2) mg/dL Magnesium 2.0 (1.6-2.3) mg/dL Total Bilirubin 0.8 (0.2-1.3) mg/dL AST 35 (14-36) U/L ALT 18 (4-34) U/L Alkaline Phosphatase 88 (38-126) U/L Troponin I (0.000-0.034) ng/mL NT-Pro-B Natriuret Pep 28261 pg/mL Total Protein 5.5 L (6.3-8.2) g/dL Albumin 3.3 L (3.5-5.0) g/dL 09/21/23 09/21/23 Range/Units 13:50 13:50 WBC (3.8-10.6) k/uL RBC (3.80-5.40) m/uL Hgb (11.4-16.0) gm/dL Hct (34.0-46.0) % MCV (80.0-100.0) fL MCH (25.0-35.0) pg MCHC (31.0-37.0) g/dL RDW (11.5-15.5) % Plt Count (150-450) k/uL MPV Neutrophils % (Manual) % Lymphocytes % (Manual) % Monocytes % (Manual) % Metamyelocytes % % Myelocytes % % Neutrophils # (Manual) (1.3-7.7) k/uL Lymphocytes # (Manual) (1.0-4.8) k/uL Monocytes # (Manual) (0-1.0) k/uL Metamyelocytes # (Man) (0) k/uL Myelocytes # (Manual) (0) k/uL Nucleated RBCs (0-0) /100 WBC Manual Slide Review Hypochromasia Anisocytosis Macrocytosis PT (10.0-12.5) sec INR (<1.2) APTT (22.0-30.0) sec Sodium (137-145) mmol/L Potassium (3.5-5.1) mmol/L Chloride (98-107) mmol/L Carbon Dioxide (22-30) mmol/L Anion Gap mmol/L BUN (7-17) mg/dL Creatinine (0.52-1.04) mg/dL Est GFR (CKD-EPI)AfAm (>60 ml/min/1.73 sqM) Est GFR (CKD-EPI)NonAf (>60 ml/min/1.73 sqM) Glucose (74-99) mg/dL Plasma Lactic Acid Jeyson 2.0 (0.7-2.0) mmol/L Calcium (8.4-10.2) mg/dL Magnesium (1.6-2.3) mg/dL Total Bilirubin (0.2-1.3) mg/dL AST (14-36) U/L ALT (4-34) U/L Alkaline Phosphatase (38-126) U/L Troponin I 0.205 H* (0.000-0.034) ng/mL NT-Pro-B Natriuret Pep pg/mL Total Protein (6.3-8.2) g/dL Albumin (3.5-5.0) g/dL Critical Care Time Critical Care Time: Yes Total Critical Care Time: 33 Disposition Clinical Impression: Acute exacerbation of chronic obstructive pulmonary disease, Acute respiratory failure Disposition: ADMITTED IP TO THIS HOSP Condition: Serious Is patient prescribed a controlled substance at d/c from ED?: No Referrals: Betsy Daniels MD [Primary Care Provider] - 1-2 days Time of Disposition: 15:47
[2023-09-21] MEDS: IPRATROPIUM-ALBUTEROL 3 ML NEB INHALATION STA (14:01)
[2023-09-21 14:23] LABS: INR 1.3 (<1.2); Partial Thromboplastin Time 23.8 sec (22.0-30.0); Prothrombin Time 13.4 sec (10.0-12.5)
[2023-09-21 14:29] LABS: ALT 18 U/L (4-34); AST 35 U/L (14-36); African American GFR (CKD) 41 (>60 ml/min/1.73 sqM); Albumin 3.3 g/dL (3.5-5.0); Alkaline Phosphatase 88 U/L (38-126); Anion Gap 8 mmol/L; Blood Urea Nitrogen 47 mg/dL (7-17); Calcium 8.7 mg/dL (8.4-10.2); Carbon Dioxide 30 mmol/L (22-30); Chloride 98 mmol/L (98-107); Glucose 196 mg/dL (74-99); Non-African American GFR(CKD) 36 (>60 ml/min/1.73 sqM); Potassium 4.3 mmol/L (3.5-5.1); Sodium 136 mmol/L (137-145); Total Bilirubin 0.8 mg/dL (0.2-1.3); Total Protein 5.5 g/dL (6.3-8.2)
[2023-09-21] MEDS ORDERED: NALOXONE 0.4 MG/ML 1 ML VIAL IVP PRN (14:33)
[2023-09-21 14:45] LABS: Anisocytosis Slight; HCT 33.8 % (34.0-46.0); HGB 10.5 gm/dL (11.4-16.0); Hypochromasia Moderate; MCH 29.9 pg (25.0-35.0); MCHC 31.2 g/dL (31.0-37.0); Macrocytosis Slight; Mean Platelet Volume 9.6; Platelet Count 294 k/uL (150-450); RBC 3.51 m/uL (3.80-5.40); RDW 19.8 % (11.5-15.5); WBC 27.9 k/uL (3.8-10.6)
--- NOTE | 2023-09-21 14:58 | XR ---
EXAMINATION TYPE: XR chest 1V portable DATE OF EXAM: 09/21/2023 Comparison: 07/04/2023 Clinical History: 63-year-old female shortness of breath, apple Findings: Right-sided double-lumen hemodialysis catheter, tips at the mid SVC level. Heart upper limits of norm al in size. Hyperinflation with diffuse interstitial opacity. No sizable pleural effusion seen. Impression: COPD with superimposed interstitial opacities, possible interstitial pulmonary edema versus atypical pneumonias. Clinically correlate.
[2023-09-21 15:07] LABS: NT-Pro-B-Type Natriuretic Pept 60000 pg/mL
[2023-09-21 15:17] LABS: Lymphocytes # (M) 5.86 k/uL (1.0-4.8); Metamyelocytes # (M) 1.12 k/uL (0); Metamyelocytes % 4 %; Monocytes # (M) 0.56 k/uL (0-1.0); Myelocytes # (M) 0.28 k/uL (0); Myelocytes % 1 %; Neutrophils # (M) 20.09 k/uL (1.3-7.7); Neutrophils % (M) 72 %; Nucleated Red Blood Cells 0 /100 WBC (0-0); Total Cells Counted 100
[2023-09-21] MEDS ORDERED: PNEUMONIA PROTOCOL UTILIZED 1 EACH MISC PO PRN (15:50)
[2023-09-21] MEDS ORDERED: NITROGLYCERIN SL TABS 0.4 MG TAB SUBLINGUAL PRN (15:52)
--- NOTE | 2023-09-21 16:14 | P.CNPUL ---
History of Present Illness Consult date: 09/21/23 Requesting physician: Doc Arthur Reason for consult: COPD Chief complaint: Shortness of breath History of present illness: This is a 63-year-old female patient with a known history of chronic obstructive pulmonary disease, former smoker, previous acute kidney injury requiring dialysis that she completed approximately 2 weeks ago. She presented here to the emergency room today with increasing shortness of breath. Symptoms started just this morning. No fever or chills. No cough or congestion. Mainly dyspnea on minimal exertion. Chest x-ray reveals evidence of COPD with superimposed inte rstitial opacities, possible pulmonary edema versus atypical pneumonia. White count 27.9. Hemoglobin 10.5. Platelets 294. INR 1.3. Sodium 136. Potassium 4.3. Bicarb 30. BUN 47. Creatinine 1.56. Glucose 196. Troponin 0.205. proBNP 60,000. The patient is seen in consultation in the emergency department. She is currently sitting up on the stretcher. Awake and alert. On BiPAP 14/5 and 40% FiO2 to maintain O2 saturations in the 90s. Been initiated on a heparin drip. Initiated on antibiotics, bronchodilators and steroids. Review of Systems REVIEW OF SYSTEMS: CONSTITUTIONAL: Denies any recent significant weight loss or weight gain. EYES: Denies change in vision. EARS, NOSE, MOUTH, THROAT: Denies headaches, denies sore throat. CARDIOVASCULAR: Denies chest pain, palpitations or syncopal episodes. RESPIRATORY: Positive for shortness of breath, no cough, congestion or hemoptysis. GASTROINTESTINAL: Denies change in appetite, denies abdominal pain GENITOURINARY: Denies hematuria, denies infections. MUSKULOSKELETAL: Denies pain, denies swelling. INTEGUMENTARY: Denies rash, denies eczema. NEUROLOGICAL: Denies recent memory loss, no recent seizure activity. PSYCHIATRIC: Denies anxiety, denies depression. HEMATOLOGIC/LYMPHATIC: Denies anemia, denies enlarged lymph nodes. Past Medical History Past Medical History: COPD History of Any Multi-Drug Resistant Organisms: None Reported Additional Past Surgical History / Comment(s): dialysis port inserted Past Psychological History: No Psychological Hx Reported Smoking Status: Former smoker Medications and Allergies Home Medications Medication Instructions Recorded Confirmed Type Albuterol Sulfate [Ventolin HFA] 2 puff INHALATION RT-Q6H PRN 06/29/23 08/26/23 History Cholecalciferol [Vitamin D3 (25 25 mcg PO DAILY 06/29/23 08/26/23 History Mcg = 1000 Iu)] Cyanocobalamin (Vitamin B-12) 1,000 mcg PO DAILY 06/29/23 08/26/23 History [Vitamin B-12] Fluticasone/Umeclidin/Vilanter 1 puff INHALATION RT-DAILY 06/29/23 08/26/23 History [Trelegy Ellipta 200-62.5-25] Multivit-Min/FA/Lycopen/Lutein 1 tab PO DAILY 06/29/23 08/26/23 History [Centrum Silver Tablet] Furosemide [Lasix] 1 tab PO DAILY 08/26/23 08/26/23 History Isosorbide Dinitrate [Isordil] 1 tab PO DAILY 08/26/23 08/26/23 History Ondansetron [Zofran] 1 tab PO QID PRN 08/26/23 08/26/23 History Pantoprazole [Protonix] 1 tab PO DAILY 08/26/23 08/26/23 History Sulfamethox-Tmp 800-160Mg [Bactrim 1 tab PO DIRECTED 08/26/23 08/26/23 History DS 800-160 mg] Tiotropium 18 Mcg/Puff [Spiriva] 2 puff INHALATION DAILY 08/26/23 08/26/23 History Warfarin [Coumadin] 1 tab PO DAILY 08/26/23 08/26/23 History carvediloL [Coreg] 1 tab PO BID 08/26/23 08/26/23 History guaiFENesin [guaiFENesin Oral 100 mg PO DAILY 08/26/23 08/26/23 History Solution] predniSONE [Deltasone] 3 tab PO DAILY 08/26/23 08/26/23 History Allergies Allergy/AdvReac Type Severity Reaction Status Date / Time No Known Allergies Allergy Verified 09/21/23 13:49 Physical Exam Vitals: Vital Signs Temp Pulse Resp BP Pulse Ox FiO2 09/21/23 15:28 40 09/21/23 15:11 45 09/21/23 15:00 104 H 27 H 148/94 98 09/21/23 14:30 105 H 26 H 144/90 98 09/21/23 14:11 112 H 09/21/23 14:04 118 H 09/21/23 13:45 97.3 F L 145 H 28 H 168/110 98 50 Intake and Output 09/21/23 09/21/23 09/21/23 06:59 14:59 22:59 Other: Weight 68.039 kg GENERAL EXAM: Alert, pleasant 63-year-old female on BiPAP 14/5 and 40% FiO2, fairly comfortable in no apparent distress. HEAD: Normocephalic. EYES: Normal reaction of pupils, equal size. NOSE: Clear with pink turbinates. THROAT: No erythema or exudates. NECK: No masses, no JVD. CHEST: No chest wall deformity. LUNGS: Equal air entry with bibasilar crackles, diminished. CVS: S1 and S2 normal with no audible murmur, regular rhythm. ABDOMEN: No hepatosplenomegaly, normal bowel sounds, no guarding or rigidity. SPINE: No scoliosis or deformity SKIN: No rashes CENTRAL NERVOUS SYSTEM: No focal deficits, tone is normal in all 4 extremities. EXTREMITIES: There is no peripheral edema. No clubbing, no cyanosis. Periphe ral pulses are intact. Results - Laboratory Findings CBC and BMP: 09/21/23 13:50 09/21/23 13:50 PT/INR, D-dimer PT 13.4 sec (10.0-12.5) H 09/21/23 13:50 INR 1.3 (<1.2) H 09/21/23 13:50 Abnormal lab findings: Abnormal Labs 09/21/23 09/21/23 09/21/23 13:50 13:50 13:50 WBC 27.9 H RBC 3.51 L Hgb 10.5 L Hct 33.8 L RDW 19.8 H Neutrophils # (Manual) 20.09 H Lymphocytes # (Manual) 5.86 H Metamyelocytes # (Man) 1.12 H Myelocytes # (Manual) 0.28 H PT 13.4 H INR 1.3 H Sodium 136 L BUN 47 H Creatinine 1.56 H Glucose 196 H Troponin I Total Protein 5.5 L Albumin 3.3 L 09/21/23 13:50 WBC RBC Hgb Hct RDW Neutrophils # (Manual) Lymphocytes # (Manual) Metamyelocytes # (Man) Myelocytes # (Manual) PT INR Sodium BUN Creatinine Glucose Troponin I 0.205 H* Total Protein Albumin - Diagnostic Findings Chest x-ray: image reviewed Assessment and Plan Assessment: Acute hypoxemic respiratory failure secondary to an acute exacerbation of chronic obstructive pulmonary disease, acute systolic congestive heart failure Troponin leak Acute kidney injury Leukocytosis Severe cardiomyopathy with an ejection fraction of 15 to 20% History of chronic obstructive pulmonary disease Chronic tobacco dependence Question of vasculitis and was to have had a kidney biopsy in June 2023 unclear if this was done Acute kidney injury requiring temporary hemodialysis, states completed 2 weeks ago History of PE/DVT, on warfarin subtherapeutic INR at 1.3 Plan: The patient was seen and evaluated Chest x-ray, labs and medications reviewed Add DuoNeb inhalations, Solu-Medrol, Pulmicort and Perforomist inhalations Titrate the FiO2 as tolerated Check a procalcitonin Continue antibiotics for now Received Lasix IVP x 1 Heparin drip for elevated troponin Cardiology consult We will continue to follow and make further recommendations based on her clinical status I have personally seen and examined the patient, performed the documentation and the assessment and plan as written. Number of minutes spent on the visit: 20.
[2023-09-21] MEDS: HEPARIN SODIUM 1,000 UN/ML (10ML VL) IV ONE (16:15)
[2023-09-21] MEDS: HEPARIN SOD,PORK IN 0.45% NACL 25,000 UNIT in 0.45% NACL 1 250ML.BAG IV SCH (16:16)
[2023-09-21] MEDS: FUROSEMIDE 10 MG/ML 2 ML VIAL IV ONE (16:18)
[2023-09-21] MEDS: ASPIRIN 81 MG PO STA (16:19)
[2023-09-21] MEDS: AZITHROMYCIN 500 MG in SODIUM CHLORIDE 0.9% 250 ML IVPB STA (17:05)
[2023-09-21] MEDS: methylPREDNISolone SOD SUCCI 125 MG/2 ML VIAL IV SCH (17:48)
[2023-09-21] MEDS: NITROGLYCERIN OINT 1 INCH/GM PACKET TOPICAL SCH (17:50)
[2023-09-21] MEDS: BUDESONIDE 1 MG/2 ML NEBU INHALATION STA (20:20)
[2023-09-21] MEDS: FORMOTEROL FUMARATE 20 MCG/2 ML NEBU INHALATION SCH (20:20)
[2023-09-21] MEDS: IPRATROPIUM-ALBUTEROL 3 ML NEB INHALATION SCH (20:20)
[2023-09-21] MEDS ORDERED: ONDANSETRON ODT 4 MG TAB PO PRN (20:40)
[2023-09-21] MEDS: POTASSIUM CHLORIDE ER 20 MEQ TAB.ER PO SCH (21:00)
[2023-09-21] MEDS: carvediloL 6.25 MG TAB PO SCH (21:00)
[2023-09-22] MEDS: ACETAMINOPHEN TAB 325 MG TAB PO PRN (05:45)
[2023-09-22 07:41] LABS: Mean Platelet Volume 9.3; Platelet Count 290 k/uL (150-450)
[2023-09-22] MEDS: SYMBICORT 80-4.5 MCG INHALER INHALATION SCH (08:11)
--- NOTE | 2023-09-22 08:32 | XR ---
EXAMINATION TYPE: XR chest 1V portable DATE OF EXAM: 09/22/2023 Comparison: 09/21/2023 Clinical History: 63-year-old female pneumonia Findings: Right-sided double lumen hemodialysis catheter tips at the mid SVC level. Heart borderline in size. D iffuse interstitial opacities persist with slight improving aeration at the right lower lung. Patchy opacity at the left lower lung is similar. No sizable pleural effusion seen. Impression: Diffuse interstitial opacities show slight improvement particularly at the right lower lung. Addition al patchy left basilar opacity is similar.
[2023-09-22] MEDS ORDERED: ISOSORBIDE DINITRATE 10 MG TAB PO SCH (09:00)
[2023-09-22] MEDS ORDERED: ASPIRIN 325 MG TAB PO SCH (09:00)
--- NOTE | 2023-09-22 09:21 | P.CRDCN ---
History of Present Illness Consult date: 09/22/23 Reason for Consult (text): Respiratory failure, evaluate for CHF History of present illness: This is a 63-year-old female with past medical history of COPD, tobacco use and dependence. 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 We have been asked to evaluate the patient for respiratory failure, eval for CHF. Patient was recently seen by cardiology in June of this year at which time she was admitted to the hospital and consultation was for elevated troponins. At that time, patient was also diagnosed with pulmonary embolism with small left peroneal DVT, acute kidney injury, severe cardiomyopathy with EF of 15 to 20%. Patient was s ubsequently transferred to [facility]. Patient states that she had a cardiac catheterization done at [facility]. She was also started on hemodialysis which was discontinued about 2 weeks ago. Patient states she came into the hospital because she [facility] an [facility] at [facility] PM and was going to get into the car and could not catch her breath. She denies having any chest pain. She states she has been staying in the house and out of humidity and on oxygen. She states that she is following a low-sodium diet. She is also taking all of her medications as directed. She states she had an episode similar to this but not as bad a week ago. Blood pressure 139/94, heart rate 95, pulse ox 95% on 2 L nasal cannula. Patient presented with blood pressure 168/110, heart rate 145, patient was initially on BiPAP. Patient is seen today in the emergency center waiting for a bed on the cardiac stepdown unit. She has been started on a heparin drip and is status post IV Lasix 20 mg x 1. EKG: Sinus tachycardia at 146 bpm, #2 sinus rhythm with ventricular rate of 90, no acute ST-T wave changes. Chest x-ray: COPD with superimposed interstitial opacities, possible interstitial pulmonary edema versus atypical pneumonias. Laboratory studies: WBC 27.9, hemoglobin 10.5, platelet count 294. INR 1.3. Sodium 136, potassium 4.3, BUN 47 creatinine 1.56. Glucose 196. Troponins 0.205, 0.403, 0.521. proBNP 60,000. Influenza A, influenza B, RSV, COVID-19 not detected. Home cardiac medications: Atorvastatin 40 mg daily, Coreg 6.25 mg twice daily, Lasix 80 mg daily, isosorbide 10 mg daily, potassium chloride 20 mill equivalents twice daily, warfarin 2.5 mg daily. Echocardiogram performed 07/05/2023 reveals EF of 15 to 20% with global hypokinesia. Intact mitral valve leaflets with moderate to severe mitral regurgitation. Mild pulmonary hypertension. Moderate tricuspid regurgitation, mild aortic insufficiency. Review Of Systems: At the time of my exam: CONSTITUTIONAL: Denies fever or chills. HEENT: Denies blurred vision, vision changes, or eye pain. Denies hemoptysis CARDIOVASCULAR: Denies chest pain. Denies orthopnea. Denies PND. Denies palpitations RESPIRATORY: Reports dyspnea on exertion, reports shortness of breath. GASTROINTESTINAL: Denies abdominal pain. Denies nausea or vomiting. HEMATOLOGIC: Denies bleeding disorders. GENITOURINARY: Denies any blood in urine. SKIN: Denies puritis. Denies rash. Physical examination: Gen: This is a 63-year-old female in no acute distress VS: reviewed HEENT: Head is atraumatic, normocephalic. Pupils equal, round. Sclerae is anicteric. NECK: Supple. No JVD. LUNGS: Diminished bilateral. No intercostal retractions. HEART: Regular rate and rhythm. No murmur. ABDOMEN: Soft No tenderness. EXTREMITIES: No pedal edema. No calf tenderness. NEUROLOGICAL: Patient is awake, alert and oriented x3. Assessment: Acute hypoxic respiratory failure secondary to acute exacerbation of COPD, acute systolic heart failure Flat elevated troponin secondary to chronic CHF Cardiomyopathy with known EF of 15 to 20%, unknown if ischemic or nonischemic Valvular heart disease with moderate to severe MR, moderate tricuspid regurgitation, mild aortic insufficiency Acute kidney injury Vasculitis status post biopsy Recent history of PE/DVT on Coumadin Subtherapeutic INR Tobacco use and dependence, recently quit Plan: Resume patient's home cardiac medications Change aspirin 81 mg daily Discontinue Nitropaste Ordered pharmacy to dose Coumadin and continue heparin until INR is therapeutic Obtain 2-D echocardiogram and Doppler study to assess cardiac structure and function Patient will eventually need ischemic workup Patient will eventually benefit from JAGRUTI/ARB, Aldactone, and Farxiga but for now we will only increase Coreg due to patient's abnormal renal function. Obtain records from [facility] Further recommendations to follow based upon clinical course Thank you kindly for this consultation. Nurse practitioner note has been reviewed, I agree with documented findings and plan of care. Patient was seen and examined. Past Medical History Past Medical History: COPD History of Any Multi-Drug Resistant Organisms: None Reported Additional Past Surgical History / Comment(s): dialysis port inserted Past Psychological History: No Psychological Hx Reported Smoking Status: Former smoker Medications and Allergies Home Medications Medication Instructions Recorded Confirmed Type Albuterol Sulfate [Ventolin HFA] 1 - 2 puff INHALATION RT-Q4H PRN 06/29/23 09/21/23 History Cholecalciferol [Vitamin D3 (25 25 mcg PO DAILY 06/29/23 09/21/23 History Mcg = 1000 Iu)] Fluticasone/Umeclidin/Vilanter 1 puff INHALATION RT-DAILY 06/29/23 09/21/23 History [Trelegy Ellipta 200-62.5-25] Furosemide [Lasix] 80 mg PO DAILY 08/26/23 09/21/23 History Isosorbide Dinitrate [Isordil] 10 mg PO DAILY 08/26/23 09/21/23 History Pantoprazole [Protonix] 40 mg PO DAILY 08/26/23 09/21/23 History Sulfamethox-Tmp 800-160Mg [Bactrim 2 tab PO DIRECTED 08/26/23 09/21/23 History DS 800-160 mg] Warfarin [Coumadin] 2.5 mg PO DAILY 08/26/23 09/21/23 History carvediloL [Coreg] 6.25 mg PO BID 08/26/23 09/21/23 History guaiFENesin [guaiFENesin Oral 200 mg PO Q4H PRN 08/26/23 09/21/23 History Solution] predniSONE [Deltasone] 60 mg PO DAILY 08/26/23 09/21/23 History Atorvastatin [Lipitor] 40 mg PO DAILY 09/21/23 09/21/23 History Ondansetron Odt [Zofran Odt] 4 mg PO Q6H PRN 09/21/23 09/21/23 History Oyster Shell Calcium 500 mg PO DAILY 09/21/23 09/21/23 History Potassium Chloride [Potassium 20 meq PO BID 09/21/23 09/21/23 History Chloride ER (K-Dur GEQ)] Allergies Allergy/AdvReac Type Severity Reaction Status Date / Time No Known Allergies Allergy Verified 07/16/24 16:39 Physical Exam Vitals: Vital Signs Temp Pulse Resp BP Pulse Ox FiO2 09/22/23 05:56 95 17 139/94 95 09/22/23 03:00 84 18 122/73 94 L 09/21/23 23:29 89 18 119/79 95 09/21/23 20:46 96 09/21/23 20:31 94 09/21/23 20:30 94 09/21/23 20:21 91 35 09/21/23 19:36 92 21 148/98 99 09/21/23 19:00 103 H 140/93 09/21/23 18:30 98 20 135/103 99 09/21/23 18:00 106 H 19 140/103 98 09/21/23 17:30 109 H 23 156/107 98 09/21/23 17:00 98 19 143/94 97 09/21/23 16:30 98 21 145/98 98 09/21/23 16:26 100 22 145/98 98 09/21/23 16:00 98 21 143/95 97 09/21/23 15:30 102 H 21 152/100 99 09/21/23 15:28 40 09/21/23 15:11 45 09/21/23 15:00 104 H 27 H 148/94 98 09/21/23 14:30 105 H 26 H 144/90 98 09/21/23 14:11 112 H 09/21/23 14:04 118 H 09/21/23 13:45 97.3 F L 145 H 28 H 168/110 98 50 Intake and Output 09/21/23 09/22/23 09/22/23 22:59 06:59 14:59 Intake Total 59.196 Balance 59.196 Intake: Intake, IV Titration 59.196 Amount Heparin Sod,Pork in 0.45% 59.196 NaCl 25,000 unit In 0.45 % NaCl 1 250ml.bag @ 12 UNITS/KG/HR 8.165 mls/hr IV .Q24H [facility] Rx#: [id number] Results 09/22/23 07:17 09/21/23 13:50 Cardiac Enzymes 09/21/23 09/21/23 09/21/23 Range/Units 13:50 13:50 16:15 AST 35 (14-36) U/L Troponin I 0.205 H* 0.403 H* (0.000-0.034) ng/mL 09/21/23 Range/Units 18:57 AST (14-36) U/L Troponin I 0.521 H* (0.000-0.034) ng/mL Coagulation 09/21/23 09/21/23 09/21/23 Range/Units 13:50 16:15 22:00 PT 13.4 H (10.0-12.5) sec APTT 23.8 24.9 132.4 H* (22.0-30.0) sec CBC 09/21/23 Range/Units 13:50 WBC 27.9 H (3.8-10.6) k/uL RBC 3.51 L (3.80-5.40) m/uL Hgb 10.5 L (11.4-16.0) gm/dL Hct 33.8 L (34.0-46.0) % Plt Count 294 (150-450) k/uL Comprehensive Metabolic Panel 09/21/23 Range/Units 13:50 Sodium 136 L (137-145) mmol/L Potassium 4.3 (3.5-5.1) mmol/L Chloride 98 (98-107) mmol/L Carbon Dioxide 30 (22-30) mmol/L BUN 47 H (7-17) mg/dL Creatinine 1.56 H (0.52-1.04) mg/dL Glucose 196 H (74-99) mg/dL Calcium 8.7 (8.4-10.2) mg/dL AST 35 (14-36) U/L ALT 18 (4-34) U/L Alkaline Phosphatase 88 (38-126) U/L Total Protein 5.5 L (6.3-8.2) g/dL Albumin 3.3 L (3.5-5.0) g/dL Current Medications Generic Name Dose Route Start Last Admin Trade Name Freq PRN Reason Stop Dose Admin Acetaminophen 650 mg 09/21/23 14:33 09/22/23 05:45 Acetaminophen Tab 325 Mg Tab PO 650 mg Q4HR PRN Administration Mild Pain or Fever > 100.5 Albuterol/Ipratropium 3 ml 09/21/23 20:00 09/21/23 20:20 Ipratropium-Albuterol 3 Ml Neb INHALATION 3 ml RT-QID [facility] Administration Albuterol/Ipratropium 3 ml 09/21/23 14:33 Ipratropium-Albuterol 3 Ml Neb INHALATION RT-Q2H PRN Shortness Of Breath Or Wheezing Aspirin 325 mg 09/22/23 09:00 Aspirin 325 Mg Tab PO DAILY [facility] Atorvastatin Calcium 40 mg 09/22/23 09:00 Atorvastatin 40 Mg Tab PO DAILY [facility] Azithromycin 500 mg 09/22/23 09:00 Azithromycin 500 Mg Tab PO 09/23/23 09:01 DAILY [facility] Protocol Budesonide/Formoterol Fumarate 2 puff 09/22/23 08:00 Symbicort 80-4.5 Mcg Inhaler INHALATION RT-BID [facility] Calcium Carbonate 500 each 09/22/23 09:00 Calcium Carb-Vit D 500 Mg-5 Mcg Tab PO DAILY [facility] Carvedilol 6.25 mg 09/21/23 21:00 09/21/23 21:00 Carvedilol 6.25 Mg Tab PO 6.25 mg BID [facility] Administration Cholecalciferol 25 mcg 09/22/23 09:00 Cholecalciferol 25 Mcg (1000 Iu) Tablet PO DAILY [facility] Formoterol Fumarate 20 mcg 09/21/23 20:00 09/21/23 20:20 Formoterol Fumarate 20 Mcg/2 Ml Nebu INHALATION 20 mcg RT-BID [facility] Administration Furosemide 80 mg 09/22/23 09:00 Furosemide 80 Mg Tab PO DAILY [facility] Guaifenesin 200 mg 09/21/23 20:40 Guaifenesin Syrup 100mg/5ml 200 Mg/10 Ml Cup PO Q4H PRN Cough Ceftriaxone Sodium 2 gm/ 50 mls @ 100 mls/hr 09/22/23 09:00 Sodium Chloride IVPB 09/25/23 09:29 Q24HR [facility] Protocol Heparin Sodium/Sodium Chloride 250 mls @ 8.165 mls/hr 09/21/23 16:00 09/22/23 00:35 25,000 unit/ Sodium Chloride IV 9 units/kg/hr .Q24H [facility] 6.124 mls/hr Titration Protocol 12 UNITS/KG/HR Isosorbide Dinitrate 10 mg 09/22/23 09:00 Isosorbide Dinitrate 10 Mg Tab PO DAILY [facility] Methylprednisolone Sodium Succinate 60 mg 09/21/23 18:00 09/22/23 05:55 Methylprednisolone Sod Succi 125 Mg/2 Ml Vial IV 60 mg Q6HR [facility] Administration Miscellaneous Information 1 each 09/21/23 15:50 Pneumonia Protocol Utilized 1 Each Misc PO ONCE PRN Per Protocol Naloxone HCl 0.2 mg 09/21/23 14:33 Naloxone 0.4 Mg/Ml 1 Ml Vial IVP Q2M PRN Opioid Reversal Nitroglycerin 0.4 mg 09/21/23 15:52 Nitroglycerin Sl Tabs 0.4 Mg Tab SUBLINGUAL Q5M PRN Chest Pain Nitroglycerin 1 inch 09/21/23 18:00 09/22/23 05:57 Nitroglycerin Oint 1 Inch/Gm Packet TOPICAL Not Given Q6HR [facility] Ondansetron HCl 4 mg 09/21/23 20:40 Ondansetron Odt 4 Mg Tab PO Q6H PRN Nausea Pantoprazole Sodium 40 mg 09/22/23 09:00 Pantoprazole 40 Mg Tablet PO DAILY [facility] Potassium Chloride 20 meq 09/21/23 21:00 09/21/23 21:00 Potassium Chloride Er 20 Meq Tab.Er PO 20 meq BID [facility] Administration Intake and Output 09/21/23 09/22/23 09/22/23 22:59 06:59 14:59 Intake Total 59.196 Balance 59.196 Intake: Intake, IV Titration 59.196 Amount Heparin Sod,Pork in 0.45% 59.196 NaCl 25,000 unit In 0.45 % NaCl 1 250ml.bag @ 12 UNITS/KG/HR 8.165 mls/hr IV .Q24H [facility] Rx#: [id number] 09/21/23 13:50 09/21/23 13:50
[2023-09-22] MEDS: carvediloL 6.25 MG TAB PO SCH (10:14)
[2023-09-22] MEDS: PANTOPRAZOLE 40 MG TABLET PO SCH (10:15)
[2023-09-22] MEDS: ATORVASTATIN 40 MG TAB PO SCH (10:15)
[2023-09-22] MEDS: FUROSEMIDE 80 MG TAB PO SCH (10:15)
[2023-09-22] MEDS: AZITHROMYCIN 500 MG TAB PO SCH (10:15)
[2023-09-22] MEDS: CHOLECALCIFEROL 25 MCG (1000 IU) TABLET PO SCH (10:15)
[2023-09-22] MEDS: ASPIRIN 81 MG PO SCH (10:16)
[2023-09-22] MEDS: CALCIUM CARB-VIT D 500 MG-5 MCG TAB PO SCH (10:16)
[2023-09-22] MEDS: ISOSORBIDE DINITRATE 10 MG TAB PO SCH (10:29)
--- NOTE | 2023-09-22 10:54 | CA ---
Transthoracic Echo Report Name: Milka Coulter Age: 63 Gender: F : 1960 Exam Date: 09/22/2023 08:22 Exam Location: [place] [facility] Ht (in): 67 Wt (lb): 150 Ordering Physician: Doc Arthur DO Attending/Referring Phys: [employer] Christiane Mims RDCS Procedure CPT: Indications: dyspnea Cardiac Hx: CHF Technical Quality: Good Contrast 1: Total Dose (mL): Contrast 2: Total Dose (mL): MEASUREMENTS (Male / Female) Normal Values 2D ECHO LV Diastolic Diameter PLAX 4.8 cm 4.2 - 5.9 / 3.9 - 5.3 cm LV Systolic Diameter PLAX 4.2 cm IVS Diastolic Thickness 0.9 cm 0.6 - 1.0 / 0.6 - 0.9 cm LVPW Diastolic Thickness 0.8 cm 0.6 - 1.0 / 0.6 - 0.9 cm LV Relative Wall Thickness 0.4 RV Internal Dim ED PLAX 2.0 cm LA Systolic Diameter LX 4.4 cm 3.0 - 4.0 / 2.7 - 3.8 cm LV Diastolic Volume MOD BP 99.9 cm??? 67 - 155 / 56 - 104 cm??? LV Systolic Volume MOD BP 61.7 cm??? 22 - 58 / 19 - 49 cm??? LV Ejection Fraction MOD BP 38.3 % >= 55 % LV Cardiac Index MOD BP 1850.2 cm???/min???m??? LV Diastolic Volume MOD 4C 83.8 cm??? LV Systolic Volume MOD 4C 61.1 cm??? LV Ejection Fraction MOD 4C 27.0 % LV Cardiac Index MOD 4C 1095.4 cm???/min???m??? LV Diastolic Length 4C 7.6 cm LV Systolic Length 4C 6.8 cm LV Diastolic Volume MOD 2C 115.4 cm??? LV Systolic Volume MOD 2C 64.7 cm??? LV Ejection Fraction MOD 2C 43.9 % LV Cardiac Index MOD 2C 2451.9 cm???/min???m??? LV Diastolic Length 2C 7.9 cm LV Systolic Length 2C 7.1 cm LA Volume 68.5 cm??? 18 - 58 / 22 - 52 cm??? LA Volume Index 38.1 cm???/m??? 16 - 28 cm???/m??? M-MODE Aortic Root Diameter MM 2.6 cm LA Systolic Diameter MM 4.0 cm LA Ao Ratio MM 1.5 AV Cusp Separation MM 1.7 cm DOPPLER AI Peak Velocity 303.8 cm/s AI Peak Gradient 36.9 mmHg AI Pressure Half Time 1061.8 ms MR Peak Velocity 574.1 cm/s MR Peak Gradient 131.8 mmHg MR Flow Rate PISA 109.0 cm???/s TR Peak Velocity 360.6 cm/s TR Peak Gradient 52.0 mmHg Right Ventricular Systolic Press 62.0 mmHg FINDINGS Left Ventricle Left ventricular ejection fraction is estimated at 25-30 %. Moderately increased left ventricular systolic volume. Severely reduced global left ventricular systolic function. Right Ventricle Normal right ventricular size and function. Severe pulmonary hypertension. Right ventricular systolic pressure estimated at 62mm hg. Right Atrium Right atrial dilatation. Left Atrium Moderately increased left atrial diameter. Moderately increased left atrial volume. Mitral Valve Mitral valve thickened. Moderate to severe mitral regurgitation. Aortic Valve Trileaflet aortic valve. Mild aortic regurgitation. Tricuspid Valve Structurally normal tricuspid valve. Moderate tricuspid regurgitation. Pulmonic Valve Structurally normal pulmonic valve. Pericardium No pericardial or pleural effusion. Aorta Normal size aortic root and proximal ascending aorta. CONCLUSIONS Left ventricular ejection fraction 25-30% RVSP 62 Moderately dilated left atrium Moderate to severe central mitral regurgitation Mild aortic regurgitation Moderate tricuspid regurgitation Previewed by: Dr. Esteban Choi DO (Electronically Signed) Final Date: 22 September 2023 10:53
--- NOTE | 2023-09-22 11:23 | P.HPIM ---
History of Present Illness H&P Date: 09/22/23 This is a 63-year-old female patient of Dr. Daniels who presented to the ER with concerns of increased shortness of breath. Patient was recently admitted at [facility] last week for similar symptoms but did leave AMA prior to completion of treatment. Patient was alsopatient was also recently admitted recently admitted and transferred to [facility] and transferred to [facility] due to diagnosis of vasculitis and required hemodialysis during the hospital stay patient also had episode of pulmonary embolism in which she was started on Coumadin. Patient recently had hemodialysis catheter DC'd.. Additional medical history includes COPD and ex-smoker. Chest x-ray completed in ER showing COPD with superimposed interstitial opacities possible interstitial pulmonary edema versus atypicalCOPD with superimposed interstitial bases possible interstitial pulmonary edema versus atypical pneumonitis. Lab work revealing BNP level 60,000.. [id number] 0.205, 0.403 and 0.521. Creatinine 1.56 bun 47. White blood cell 27.9 hemoglobin 10.5 . Patient was started on Zithromax and Rocep hin. Given dose of IV Lasix. Started on heparin drip for elevated troponins. Cardiology pulmonary and nephrology services consulted. Cardiology pulmonary and nephrology service is consulted. Current vital signs Temp 97.3, heart rate 95, respiratory rate 18, blood pressure 143/88 with a pulse ox of 96% on 2 L. Review of Systems Please refer to HPI otherwise unremarkable Past Medical History Past Medical History: COPD History of Any Multi-Drug Resistant Organisms: None Reported Additional Past Surgical History / Comment(s): dialysis port inserted Past Psychological History: No Psychological Hx Reported Smoking Status: Former smoker Medications and Allergies Home Medications Medication Instructions Recorded Confirmed Type Albuterol Sulfate [Ventolin HFA] 1 - 2 puff INHALATION RT-Q4H PRN 06/29/23 09/21/23 History Cholecalciferol [Vitamin D3 (25 25 mcg PO DAILY 06/29/23 09/21/23 History Mcg = 1000 Iu)] Fluticasone/Umeclidin/Vilanter 1 puff INHALATION RT-DAILY 06/29/23 09/21/23 History [Trelegy Ellipta 200-62.5-25] Furosemide [Lasix] 80 mg PO DAILY 08/26/23 09/21/23 History Isosorbide Dinitrate [Isordil] 10 mg PO DAILY 08/26/23 09/21/23 History Pantoprazole [Protonix] 40 mg PO DAILY 08/26/23 09/21/23 History Sulfamethox-Tmp 800-160Mg [Bactrim 2 tab PO DIRECTED 08/26/23 09/21/23 History DS 800-160 mg] Warfarin [Coumadin] 2.5 mg PO DAILY 08/26/23 09/21/23 History carvediloL [Coreg] 6.25 mg PO BID 08/26/23 09/21/23 History guaiFENesin [guaiFENesin Oral 200 mg PO Q4H PRN 08/26/23 09/21/23 History Solution] predniSONE [Deltasone] 60 mg PO DAILY 08/26/23 09/21/23 History Atorvastatin [Lipitor] 40 mg PO DAILY 09/21/23 09/21/23 History Ondansetron Odt [Zofran Odt] 4 mg PO Q6H PRN 09/21/23 09/21/23 History Oyster Shell Calcium 500 mg PO DAILY 09/21/23 09/21/23 History Potassium Chloride [Potassium 20 meq PO BID 09/21/23 09/21/23 History Chloride ER (K-Dur GEQ)] Allergies Allergy/AdvReac Type Severity Reaction Status Date / Time No Known Allergies Allergy Verified 09/21/23 16:39 Physical Exam Vitals: Vital Signs Temp Pulse Resp BP Pulse Ox FiO2 09/22/23 10:26 95 18 143/88 96 09/22/23 08:32 96 09/22/23 08:15 92 09/22/23 05:56 95 17 139/94 95 09/22/23 03:00 84 18 122/73 94 L 09/21/23 23:29 89 18 119/79 95 09/21/23 20:46 96 09/21/23 20:31 94 09/21/23 20:30 94 09/21/23 20:21 91 35 09/21/23 19:36 92 21 148/98 99 09/21/23 19:00 103 H 140/93 09/21/23 18:30 98 20 135/103 99 09/21/23 18:00 106 H 19 140/103 98 09/21/23 17:30 109 H 23 156/107 98 09/21/23 17:00 98 19 143/94 97 09/21/23 16:30 98 21 145/98 98 09/21/23 16:26 100 22 145/98 98 09/21/23 16:00 98 21 143/95 97 09/21/23 15:30 102 H 21 152/100 99 09/21/23 15:28 40 09/21/23 15:11 45 09/21/23 15:00 104 H 27 H 148/94 98 09/21/23 14:30 105 H 26 H 144/90 98 09/21/23 14:11 112 H 09/21/23 14:04 118 H 09/21/23 13:45 97.3 F L 145 H 28 H 168/110 98 50 Intake and Output 09/21/23 09/22/23 09/22/23 22:59 06:59 14:59 Intake Total 59.196 59.811 Balance 59.196 59.811 Intake: Intake, IV Titration 59.196 59.811 Amount Heparin Sod,Pork in 0.45% 59.196 59.811 NaCl 25,000 unit In 0.45 % NaCl 1 250ml.bag @ 12 UNITS/KG/HR 8.165 mls/hr IV .Q24H [facility] Rx#: [id number] Physical examHead normocephalic Neck supple Lungs diminished bilaterally Heart regular rate and rhythm S1-S2, no rub or gallop Abdomen is soft nontender nondistended positive bowel sounds no hepatosplenomegaly Extremities no edema Neuro alert and orientated to 3 Results CBC & Chem 7: 09/22/23 07:17 09/21/23 13:50 Labs: Abnormal Lab Results - Last 24 Hours (Table) 09/21/23 09/21/23 09/21/23 Range/Units 13:50 13:50 13:50 WBC 27.9 H (3.8-10.6) k/uL RBC 3.51 L (3.80-5.40) m/uL Hgb 10.5 L (11.4-16.0) gm/dL Hct 33.8 L (34.0-46.0) % RDW 19.8 H (11.5-15.5) % Neutrophils # (Manual) 20.09 H (1.3-7.7) k/uL Lymphocytes # (Manual) 5.86 H (1.0-4.8) k/uL Metamyelocytes # (Man) 1.12 H (0) k/uL Myelocytes # (Manual) 0.28 H (0) k/uL PT 13.4 H (10.0-12.5) sec INR 1.3 H (<1.2) APTT (22.0-30.0) sec Sodium 136 L (137-145) mmol/L BUN 47 H (7-17) mg/dL Creatinine 1.56 H (0.52-1.04) mg/dL Glucose 196 H (74-99) mg/dL Troponin I (0.000-0.034) ng/mL Total Protein 5.5 L (6.3-8.2) g/dL Albumin 3.3 L (3.5-5.0) g/dL 09/21/23 09/21/23 09/21/23 Range/Units 13:50 16:15 18:57 WBC (3.8-10.6) k/uL RBC (3.80-5.40) m/uL Hgb (11.4-16.0) gm/dL Hct (34.0-46.0) % RDW (11.5-15.5) % Neutrophils # (Manual) (1.3-7.7) k/uL Lymphocytes # (Manual) (1.0-4.8) k/uL Metamyelocytes # (Man) (0) k/uL Myelocytes # (Manual) (0) k/uL PT (10.0-12.5) sec INR (<1.2) APTT (22.0-30.0) sec Sodium (137-145) mmol/L BUN (7-17) mg/dL Creatinine (0.52-1.04) mg/dL Glucose (74-99) mg/dL Troponin I 0.205 H* 0.403 H* 0.521 H* (0.000-0.034) ng/mL Total Protein (6.3-8.2) g/dL Albumin (3.5-5.0) g/dL 09/21/23 09/22/23 Range/Units 22:00 07:17 WBC (3.8-10.6) k/uL RBC (3.80-5.40) m/uL Hgb (11.4-16.0) gm/dL Hct (34.0-46.0) % RDW (11.5-15.5) % Neutrophils # (Manual) (1.3-7.7) k/uL Lymphocytes # (Manual) (1.0-4.8) k/uL Metamyelocytes # (Man) (0) k/uL Myelocytes # (Manual) (0) k/uL PT (10.0-12.5) sec INR (<1.2) APTT 132.4 H* 72.6 H (22.0-30.0) sec Sodium (137-145) mmol/L BUN (7-17) mg/dL Creatinine (0.52-1.04) mg/dL Glucose (74-99) mg/dL Troponin I (0.000-0.034) ng/mL Total Protein (6.3-8.2) g/dL Albumin (3.5-5.0) g/dL Assessment and Plan Assessment: 1. Acute hypoxic respiratory failure secondary to acute exacerbation of COPD and acute systolic congestive heart failure 2. Acute exacerbation of COPD. Patient started on IV steroids 3. Acute systolic congestive heart failure 4. Elevated troponins 5. Acute on chronic kidney disease 6. Recent diagnosis of vasculitis at [facility] 7. Recent history of PE/DVT maintained on Coumadin 8. History of cardiomyopathy with EF of 15 to 20% 9. History of tobacco abuse recently quit DVT prophylaxis heparin drip. GI prophylaxis Protonix Pulmonary, cardiology and nephrology services consulted Patient started on IV steroids and IV antibiotics Started on IV heparin drip Time with Patient: Greater than 30 (Greater than 60% of the total time spent in counseling and coordination of care)
--- NOTE | 2023-09-22 14:41 | P.NPCON ---
History of Present Illness - Reason for Consult acute renal failure - History of Present Illness Reason for consultation: Acute kidney injury History of present illness: Patient is a 63-year-old female seen in renal consultation for acute kidney injury. Patient underwent kidney biopsy which showed ANCA vasculitis and was treated at [facility]. Patient completed 2 doses of rituximab 1 g and is currently being weaned off prednisone. At this time she is maintained on 30 mg daily. Patient will in the hospital due to shortness of breath which began yesterday morning. Patient states she tried her inhalers which did not help. Patient does wear 2 L oxygen at home. Denies fever or chills. No cough. No vomiting or diarrhea. Denies history of diabetes. Denies history of coronary artery disease. Echocardiogram showed ejection fraction of 25 to 30% with severe pulmonary hypertension, moderate tricuspid regurgitation. Denies gross hematuria or dysuria. Patient was recently taken off hemodialysis due to recovering kidney function. Creatinine today is 1.56. Creatinine September 07, 2023 was 1.9. Patient does have history of PE and is maintained on anticoagulation. Vital signs are stable. General: No acute distress. HEENT: Head exam is unremarkable. On nasal cannula. LUNGS: No audible rhonchi or wheezes. HEART: Rate and Rhythm are regular. ABDOMEN: Nontender. EXTREMITITES: No edema. Past Medical History Past Medical History: COPD History of Any Multi-Drug Resistant Organisms: None Reported Additional Past Surgical History / Comment(s): dialysis port inserted Past Psychological History: No Psychological Hx Reported Smoking Status: Former smoker Medications and Allergies Home Medications Medication Instructions Recorded Confirmed Type Albuterol Sulfate [Ventolin HFA] 1 - 2 puff INHALATION RT-Q4H PRN 06/29/23 09/21/23 History Cholecalciferol [Vitamin D3 (25 25 mcg PO DAILY 06/29/23 09/21/23 History Mcg = 1000 Iu)] Fluticasone/Umeclidin/Vilanter 1 puff INHALATION RT-DAILY 06/29/23 09/21/23 History [Trelegy Ellipta 200-62.5-25] Furosemide [Lasix] 80 mg PO DAILY 08/26/23 09/21/23 History Isosorbide Dinitrate [Isordil] 10 mg PO DAILY 08/26/23 09/21/23 History Pantoprazole [Protonix] 40 mg PO DAILY 08/26/23 09/21/23 History Sulfamethox-Tmp 800-160Mg [Bactrim 2 tab PO DIRECTED 08/26/23 09/21/23 History DS 800-160 mg] Warfarin [Coumadin] 2.5 mg PO DAILY 08/26/23 09/21/23 History carvediloL [Coreg] 6.25 mg PO BID 08/26/23 09/21/23 History guaiFENesin [guaiFENesin Oral 200 mg PO Q4H PRN 08/26/23 09/21/23 History Solution] predniSONE [Deltasone] 60 mg PO DAILY 08/26/23 09/21/23 History Atorvastatin [Lipitor] 40 mg PO DAILY 09/21/23 09/21/23 History Ondansetron Odt [Zofran Odt] 4 mg PO Q6H PRN 09/21/23 09/21/23 History Oyster Shell Calcium 500 mg PO DAILY 09/21/23 09/21/23 History Potassium Chloride [Potassium 20 meq PO BID 09/21/23 09/21/23 History Chloride ER (K-Dur GEQ)] Allergies Allergy/AdvReac Type Severity Reaction Status Date / Time No Known Allergies Allergy Verified 09/21/23 16:39 Physical Exam Vitals: Vital Signs Temp Pulse Resp BP Pulse Ox FiO2 09/22/23 14:23 18 09/22/23 14:22 98.1 F 105 H 18 119/69 96 09/22/23 13:22 100 16 114/69 100 09/22/23 11:52 100 09/22/23 11:43 94 09/22/23 10:30 96 09/22/23 10:26 95 18 143/88 96 09/22/23 08:32 96 09/22/23 08:15 92 09/22/23 05:56 95 17 139/94 95 09/22/23 03:00 84 18 122/73 94 L 09/21/23 23:29 89 18 119/79 95 09/21/23 20:46 96 09/21/23 20:31 94 09/21/23 20:30 94 09/21/23 20:21 91 35 09/21/23 19:36 92 21 148/98 99 09/21/23 19:00 103 H 140/93 09/21/23 18:30 98 20 135/103 99 07/16/24 18:00 106 H 19 140/103 98 09/21/23 17:30 109 H 23 156/107 98 09/21/23 17:00 98 19 143/94 97 09/21/23 16:30 98 21 145/98 98 09/21/23 16:26 100 22 145/98 98 09/21/23 16:00 98 21 143/95 97 09/21/23 15:30 102 H 21 152/100 99 09/21/23 15:28 40 09/21/23 15:11 45 09/21/23 15:00 104 H 27 H 148/94 98 Intake and Output 09/21/23 09/22/23 09/22/23 22:59 06:59 14:59 Intake Total 59.196 59.811 Balance 59.196 59.811 Intake: Intake, IV Titration 59.196 59.811 Amount Heparin Sod,Pork in 0.45% 59.196 59.811 NaCl 25,000 unit In 0.45 % NaCl 1 250ml.bag @ 12 UNITS/KG/HR 8.165 mls/hr IV .Q24H [facility] Rx#: [id number] Results - Lab Results Most recent lab results Calcium 8.7 mg/dL (8.4-10.2) 09/21/23 13:50 Magnesium 2.0 mg/dL (1.6-2.3) 09/21/23 13:50 09/22/23 07:17 09/21/23 13:50 Assessment and Plan Plan: Assessment: 1. 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 Also component of cardiorenal syndrome. Creatinine 1.56 today. Renal function has been gradually improving. Creatinine was 1.9 dated September 07, 2023. Patient was hemodialysis dependent but was recently taken off hemodialysis. She still has permacath in place. Ultrasound from June 2023 showed no evidence of hydronephrosis. 2. ANCA vasculitis maintained on prednisone. Status post 2 doses of IV rituximab 1 g completed August 2023. 3. Acute on chronic systolic CHF ejection fraction of 25 to 30% with severe pulmonary hypertension and moderate tricuspid regurgitation. 4. Acute hypoxic respiratory failure secondary to COPD exacerbation as well as CHF. 5. History of PE maintained on anticoagulation. Plan: Maintain Lasix. Add Farxiga. Resume prednisone along with Bactrim upon discharge. Currently on IV Solu- Medrol and antibiotics. Will DC permacath this admission if renal function remains stable. Avoid nephrotoxins. Continue to monitor renal function and urine output. Thank you for the consultation. I will continue to follow the patient with you during her hospital stay.
[2023-09-22 15:52] LABS: Chol/HDL Ratio 2.28 Ratio; LDL Cholesterol,Calculated 67.5 mg/dL (0.0-131.0); VLDL Calculation 17.42 mg/dL (5.00-40.00)
--- NOTE | 2023-09-22 15:55 | P.PN ---
Subjective Progress Note Date: 09/22/23 This is a 63-year-old female patient with a known history of chronic obstructive pulmonary disease, former smoker, previous acute kidney injury requiring dialysis that she completed approximately 2 weeks ago. She presented here to the emergency room today with increasing shortness of breath. Symptoms started just this morning. No fever or chills. No cough or congestion. Mainly dyspnea on minimal exertion. Chest x-ray reveals evidence of COPD with superimposed interstitial opacities, possible pulmonary edema versus atypical pneumonia. White count 27.9. Hemoglobin 10.5. Platelets 294. INR 1.3. Sodium 136. Potassium 4.3. Bicarb 30. BUN 47. Creatinine 1.56. Glucose 196. Troponin 0.205. proBNP 60,000. The patient is seen in consultation in the emergency department. She is currently sitting up on the stretcher. Awake and alert. On BiPAP 14/5 and 40% FiO2 to maintain O2 saturations in the 90s. Been initiated on a heparin drip. Initiated on antibiotics, bronchodilators and steroids. The patient is seen today September 22, 2023 in follow-up in the emergency department. She is awake and alert in no acute distress. Breathing easier today compared to yesterday. She is maintaining good O2 saturations in the 90s on 2 L/min per nasal cannula. She has been off the BiPAP. She remains on a heparin drip. Peak troponin 0.521. She is continued on DuoNeb inhalations, Symbicort, Solu-Medrol. She is continued on ceftriaxone. Chest x-ray shows diffuse interstitial opacities with slight improvement. Objective - Vital Signs Vital signs: Vital Signs Temp 98.1 F 09/22/23 14:22 Pulse 105 H 09/22/23 14:22 Resp 18 09/22/23 14:23 BP 119/69 09/22/23 14:22 Pulse Ox 96 09/22/23 14:22 FiO2 35 09/21/23 20:21 Intake & Output 09/21/23 09/22/23 09/22/23 18:59 06:59 18:59 Intake Total 59.196 59.811 Balance 59.196 59.811 Weight 68.039 kg Intake: Intake, IV Titration 59.196 59.811 Amount Heparin Sod,Pork in 0.45% 59.196 59.811 NaCl 25,000 unit In 0.45 % NaCl 1 250ml.bag @ 12 UNITS/KG/HR 8.165 mls/hr IV .Q24H [facility] Rx#: [id number] - Exam GENERAL EXAM: Alert, pleasant 63-year-old female on 2 L/min per nasal cannula, comfortable in no apparent distress. HEAD: Normocephalic. EYES: Normal reaction of pupils, equal size. NOSE: Clear with pink turbinates. THROAT: No erythema or exudates. NECK: No masses, no JVD. CHEST: No chest wall deformity. LUNGS: Equal air entry with bibasilar crackles, diminished. CVS: S1 and S2 normal with no audible murmur, regular rhythm. ABDOMEN: No hepatosplenomegaly, normal bowel sounds, no guarding or rigidity. SPINE: No scoliosis or deformity SKIN: No rashes CENTRAL NERVOUS SYSTEM: No focal deficits, tone is normal in all 4 extremities. EXTREMITIES: There is no peripheral edema. No clubbing, no cyanosis. Peripheral pulses are intact. - Labs CBC & Chem 7: 09/22/23 07:17 09/21/23 13:50 Labs: Abnormal Lab Results - Last 24 Hours (Table) 09/21/23 09/21/23 09/21/23 Range/Units 16:15 18:57 22:00 APTT 132.4 H* (22.0-30.0) sec Troponin I 0.403 H* 0.521 H* (0.000-0.034) ng/mL 09/22/23 Range/Units 07:17 APTT 72.6 H (22.0-30.0) sec Troponin I (0.000-0.034) ng/mL Assessment and Plan Assessment: Acute hypoxemic respiratory failure secondary to an acute exacerbation of chronic obstructive pulmonary disease, acute systolic congestive heart failure Troponin leak Acute kidney injury Leukocytosis Severe cardiomyopathy with an ejection fraction of 25-30 % History of chronic obstructive pulmonary disease Chronic tobacco dependence Question of vasculitis and was to have had a kidney biopsy in June 2023 unclear if this was done Acute kidney injury requiring temporary hemodialysis, states completed 2 weeks ago History of PE/DVT, on warfarin subtherapeutic INR at 1.3 Plan: The patient was seen and evaluated Chest x-ray, labs and medications reviewed Continue bronchodilators, steroids Titrate the FiO2 as tolerated Heparin drip for elevated troponin We will continue to follow I have personally seen and examined the patient, performed the documentation and the assessment and plan as written. Number of minutes spent on the visit: 10.
[2023-09-22] MEDS: WARFARIN 5 MG TAB PO ONE (17:55)
[2023-09-23 08:11] LABS: Anisocytosis Slight; Basophils % (A) 0 %; Eosinophils % (A) 0 %; HCT 26.3 % (34.0-46.0); Hypochromasia Slight; INR 2.1 (<1.2); Lymphocytes # (A) 0.8 k/uL (1.0-4.8); Lymphocytes % (A) 3 %; MCH 29.8 pg (25.0-35.0); MCV 93.1 fL (80.0-100.0); Monocytes # (A) 0.8 k/uL (0-1.0); Monocytes % (A) 3 %; Neutrophils # (A) 21.5 k/uL (1.3-7.7); Neutrophils % (A) 93 %; Platelet Count 294 k/uL (150-450); RBC 2.83 m/uL (3.80-5.40); RDW 19.7 % (11.5-15.5); WBC 23.1 k/uL (3.8-10.6)
[2023-09-23 08:14] LABS: HGB 8.4 gm/dL (11.4-16.0)
[2023-09-23 08:47] LABS: ALT 16 U/L (4-34); AST 24 U/L (14-36); African American GFR (CKD) 33 (>60 ml/min/1.73 sqM); Albumin 2.8 g/dL (3.5-5.0); Alkaline Phosphatase 97 U/L (38-126); Anion Gap 10 mmol/L; Blood Urea Nitrogen 57 mg/dL (7-17); Calcium 8.6 mg/dL (8.4-10.2); Carbon Dioxide 26 mmol/L (22-30); Chloride 99 mmol/L (98-107); Glucose 175 mg/dL (74-99); Non-African American GFR(CKD) 29 (>60 ml/min/1.73 sqM); Potassium 3.9 mmol/L (3.5-5.1); Sodium 135 mmol/L (137-145); Total Bilirubin 0.3 mg/dL (0.2-1.3); Total Protein 4.8 g/dL (6.3-8.2)
[2023-09-23] MEDS: DAPAGLIFLOZIN PROPANEDIOL 5 MG TABLET PO SCH (09:38)
--- NOTE | 2023-09-23 11:55 | P.PN ---
Subjective Patient is seen in follow-up for acute kidney injury. Creatinine 1.85 today. On Lasix and Farxiga. Denies chest pain. Dyspnea improved. Hemodynamically stable. Vital signs are stable. General: No acute distress. HEENT: Head exam is unremarkable. LUNGS: No audible rhonchi or wheezes. HEART: Rate and Rhythm are regular. ABDOMEN: Nontender. EXTREMITITES: No edema. Objective - Vital Signs Vital signs: Vital Signs Temp 97.7 F 09/23/23 04:00 Pulse 88 09/23/23 09:57 Resp 20 09/23/23 04:00 BP 124/68 09/23/23 04:00 Pulse Ox 98 09/23/23 04:00 FiO2 35 09/21/23 20:21 Intake & Output 09/22/23 09/23/23 09/23/23 18:59 06:59 18:59 Intake Total 59.811 104.546 118 Output Total 100 Balance 59.811 104.546 18 Weight 68.039 kg 57.5 kg Intake: IV 10 0.9 10 Intake, IV Titration 59.811 94.546 Amount Heparin Sod,Pork in 0.45% 59.811 94.546 NaCl 25,000 unit In 0.45 % NaCl 1 250ml.bag @ 12 UNITS/KG/HR 8.165 mls/hr IV .Q24H [facility] Rx#: [id number] Oral 118 Output: Urine 100 Other: Voiding Method Toilet # Voids 2 - Labs CBC & Chem 7: 09/23/23 07:33 09/23/23 07:33 Labs: Abnormal Lab Results - Last 24 Hours (Table) 09/22/23 09/22/23 09/23/23 Range/Units 07:17 16:32 07:33 WBC 23.1 H (3.8-10.6) k/uL RBC 2.83 L (3.80-5.40) m/uL Hgb 8.4 L D (11.4-16.0) gm/dL Hct 26.3 L (34.0-46.0) % RDW 19.7 H (11.5-15.5) % Neutrophils # 21.5 H (1.3-7.7) k/uL Lymphocytes # 0.8 L (1.0-4.8) k/uL PT (10.0-12.5) sec INR (<1.2) APTT 53.4 H (22.0-30.0) sec Sodium (137-145) mmol/L BUN (7-17) mg/dL Creatinine (0.52-1.04) mg/dL Glucose (74-99) mg/dL Total Protein (6.3-8.2) g/dL Albumin (3.5-5.0) g/dL HDL Cholesterol 66.10 H (40.00-60.00) mg/dL 09/23/23 09/23/23 09/23/23 Range/Units 07:33 07:33 07:33 WBC (3.8-10.6) k/uL RBC (3.80-5.40) m/uL Hgb (11.4-16.0) gm/dL Hct (34.0-46.0) % RDW (11.5-15.5) % Neutrophils # (1.3-7.7) k/uL Lymphocytes # (1.0-4.8) k/uL PT 21.0 H (10.0-12.5) sec INR 2.1 H (<1.2) APTT 51.4 H (22.0-30.0) sec Sodium 135 L (137-145) mmol/L BUN 57 H (7-17) mg/dL Creatinine 1.85 H (0.52-1.04) mg/dL Glucose 175 H (74-99) mg/dL Total Protein 4.8 L (6.3-8.2) g/dL Albumin 2.8 L (3.5-5.0) g/dL HDL Cholesterol (40.00-60.00) mg/dL Microbiology - Last 24 Hours (Table) 09/21/23 14:20 Blood Culture - Preliminary Blood 09/21/23 14:05 Blood Culture - Preliminary Blood Assessment and Plan Plan: Assessment: 1. 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 Also component of cardiorenal syndrome. Creatinine 1.85 today. Creatinine was 1.9 dated September 07, 2023. Patient was hemodialysis dependent but was recently taken off hemodialysis. She still has permacath in place. Ultrasound from June 2023 showed no evidence of hydronephrosis. 2. ANCA vasculitis maintained on prednisone. Status post 2 doses of IV tom ximab 1 g completed August 2023. Maintained on 30 mg of prednisone outpatient. 3. Acute on chronic systolic CHF ejection fraction of 25 to 30% with severe pulmonary hypertension and moderate tricuspid regurgitation. 4. Acute hypoxic respiratory failure secondary to COPD exacerbation as well as CHF. 5. History of PE maintained on anticoagulation. 6. Anemia. Rule out iron deficiency. Plan: Maintain Lasix. Decrease dose to 60 mg. Maintain Farxiga. Resume prednisone along with Bactrim upon discharge. Currently on IV Solu- Medrol and antibiotics. Will DC permacath this admission if renal function remains stable. Avoid nephrotoxins. Continue to monitor renal function and urine output. Check iron studies.
--- NOTE | 2023-09-23 12:15 | CDI ---
Documentation Clarification Form Date: 09/23/2023 From: Dana Burgess Phone: [phone] Admit Date: 09/21/2023 02:34:00 PM Patient Name: Milka Coulter Visit Number: [id number] Discharge Date: ATTENTION: The Clinical Documentation Specialists (CDI) and [facility] Coding Staff appreciate your assistance in clarifying documentation. Please respond to the clarification below the line at the bottom and electronically sign. The CDI & [facility] Coding staff will review the response and follow-up if needed. Please note: Queries are made part of the Legal Health Record. If you have any questions, please contact the author of this message via ITS. Doctor/Provider: SASHA AdenC: Your patient has troponin level(s) of: 0.205, 0.403 and 0.521 on 09/20. Please clarify if there is an additional diagnosis and/or clinical significance related to this value. Patient history/risk factors: 63-year-old female with a history of COPD, recent DENICE requiring hemodialysis, who presented with increasing SOB and found to have exacerbation of COPD and exacerbation of systolic heart failure Clinical indicators: 09/20 Triage VS: 168/110, 97.3, 145, 28, 98% on BiPAP 09/20 Pulmonology Consult, Assessment: "Troponin leak" 09/21 Cardiology consult, Assessment: "Flat elevated troponin secondary to chronic CHF" 09/21 H&P, HPI: "Started on heparin drip for elevated troponins. 09/20 BNP: 60,000 Treatment: Solumedrol 60mg IV Q6 hours start 09/20 Aspirin 324mg oral once 09/20 then 81mg oral daily start 09/21 Coreg 6.25mg oral BID on 09/20 then 9.375mg oral BID start 09/21 Isordil 10mg oral TID start 09/21 Ceftriaxone 2gram IV once 09/20 then Q24 hours for a total of 4 doses start 09/21 Zithromax 500mg IV once 09/20 Heparin 4000units once 09/20 then titrated drip start 09/20 Nitro-bid ointment 1inch given once 09/20 Is there an additional diagnosis and/or clinical significance related to the above lab result/information: [ X ] Type 2 NC due to (specify cause systolic heart failure) [ ] Non-ischemic with acute myocardial injury [ ] No additional diagnosis/Not clinically significant [ ] Other, please specify [ ] Unable to determine Reference: [employer] Fourth [place] Definition of Myocardial Infarction Elevated Cardiac Troponin >99th percentile with Troponin rise and/or fall With Acute ischemia o Acute Myocardial Infarction ? Atherosclerosis thrombosis Type I NC ? Oxygen supply and demand imbalance Type II NC (Please indicate etiology) Without acute ischemia o Acute Myocardial Injury MTDD
--- NOTE | 2023-09-23 12:24 | P.PN ---
Subjective Progress Note Date: 09/23/23 Reason for Consult (text): Respiratory failure, evaluate for CHF History of present illness: This is a 63-year-old female with past medical history of COPD, tobacco use and dependence. 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 We have been asked to evaluate the patient for respiratory failure, eval for CHF. Patient was recently seen by cardiology in June of this year at which time she was admitted to the hospital and consultation was for elevated troponins. At that time, patient was also diagnosed with pulmonary embolism with small left peroneal DVT, acute kidney injury, severe cardiomyopathy with EF of 15 to 20%. Patient was subsequently transferred to [facility]. Patient states that she had a cardiac catheterization done at [facility]. She was also started on hemodialysis which was discontinued about 2 weeks ago. Patient states she came into the hospital because she [facility] and was going to get into the car and could not catch her breath. She denies having any chest pain. She states she has been staying in the house and out of humidity and on oxygen. She states that she is following a low-sodium diet. She is also taking all of her medications as directed. She states she had an episode similar to this but not as bad a week ago. Blood pressure 139/94, heart rate 95, pulse ox 95% on 2 L nasal cannula. Patient presented with blood pressure 168/110, heart rate 145, patient was initially on BiPAP. Patient is seen today in the emergency center waiting for a bed on the cardiac stepdown unit. She has been started on a heparin drip and is status post IV Lasix 20 mg x 1. EKG: Sinus tachycardia at 146 bpm, #2 sinus rhythm with ventricular rate of 90, no acute ST-T wave changes. Chest x-ray: COPD with superimposed interstitial opacities, possible interstitial pulmonary edema versus atypical pneumonias. Laboratory studies: WBC 27.9, hemoglobin 10.5, platelet count 294. INR 1.3. Sodium 136, potassium 4.3, BUN 47 creatinine 1.56. Glucose 196. Troponins 0.205, 0.403, 0.521. proBNP 60,000. Influenza A, influenza B, RSV, COVID-19 not detected. Home cardiac medications: Atorvastatin 40 mg daily, Coreg 6.25 mg twice daily, Lasix 80 mg daily, isosorbide 10 mg daily, potassium chloride 20 mill equivalents twice daily, warfarin 2.5 mg daily. Echocardiogram performed 07/05/2023 reveals EF of 15 to 20% with global hypokinesia. Intact mitral valve leaflets with moderate to severe mitral regurgitation. Mild pulmonary hypertension. Moderate tricuspid regurgitation, mild aortic insufficiency. 09/22 Patient has no new concerns today. Breathing status seems to be stable. No chest pain. Patient has been maintained on IV heparin while Coumadin is being dosed by pharmacy. INR today is at 2.1 we will plan to discontinue the heparin drip. Echocardiogram reveals EF of 25 to 30%, RVSP 62, moderately dilated left atrium, moderate to severe central mitral regurgitation, mild aortic regurgitation, moderate tricuspid regurgitation. Information has been obtained from [facility]: Echocardiogram found EF 25 to 30%, contrast bubble study was negative with no evidence of intracardiac shunt with abdominal pressure and rest. Moderate to severe mitral regurgitation, moderate to severe tricuspid regurgitation, mild to moderate a ortic regurgitation. Physical examination: Gen: This is a 63-year-old female in no acute distress VS: reviewed HEENT: Head is atraumatic, normocephalic. Pupils equal, round. Sclerae is anicteric. NECK: Supple. No JVD. LUNGS: Diminished bilateral. No intercostal retractions. HEART: Regular rate and rhythm. No murmur. ABDOMEN: Soft No tenderness. EXTREMITIES: No pedal edema. No calf tenderness. NEUROLOGICAL: Patient is awake, alert and oriented x3. Assessment: Acute hypoxic respiratory failure secondary to acute exacerbation of COPD, acute systolic heart failure Flat elevated troponin secondary to chronic CHF Cardiomyopathy with known EF of 15 to 20%, unknown if ischemic or nonischemic Valvular heart disease with moderate to severe MR, moderate tricuspid regurgitation, mild aortic insufficiency Acute kidney injury ANCA Vasculitis on steroids Recent history of PE/DVT on Coumadin Subtherapeutic INR Tobacco use and dependence, recently quit Plan: Continue patient's home cardiac medications Continue aspirin 81 mg daily Discontinue heparin drip and continue patient on Coumadin, pharmacy dosing No further cardiac workup at this time. Patient will follow-up with her assistant professor of communication at [facility] in 1 to 2 weeks following discharge. Cardiology will sign off this case and follow on an as-needed basis. Please reconsult for any new concerns. Nurse practitioner note has been reviewed, I agree with documented findings and plan of care. Patient was seen and examined. Objective - Vital Signs Vital signs: Vital Signs Temp 97.6 F 09/23/23 08:00 Pulse 88 09/23/23 09:57 Resp 20 09/23/23 08:00 BP 129/76 09/23/23 08:00 Pulse Ox 96 09/23/23 08:00 FiO2 35 09/21/23 20:21 Intake & Output 09/22/23 09/23/23 09/23/23 18:59 06:59 18:59 Intake Total 59.811 104.546 118 Output Total 100 Balance 59.811 104.546 18 Weight 68.039 kg 57.5 kg Intake: IV 10 0.9 10 Intake, IV Titration 59.811 94.546 Amount Heparin Sod,Pork in 0.45% 59.811 94.546 NaCl 25,000 unit In 0.45 % NaCl 1 250ml.bag @ 12 UNITS/KG/HR 8.165 mls/hr IV .Q24H [facility] Rx#: [id number] Oral 118 Output: Urine 100 Other: Voiding Method Toilet # Voids 2 - Labs CBC & Chem 7: 09/23/23 07:33 09/23/23 07:33 Labs: Abnormal Lab Results - Last 24 Hours (Table) 09/22/23 09/22/23 09/23/23 Range/Units 07:17 16:32 07:33 WBC 23.1 H (3.8-10.6) k/uL RBC 2.83 L (3.80-5.40) m/uL Hgb 8.4 L D (11.4-16.0) gm/dL Hct 26.3 L (34.0-46.0) % RDW 19.7 H (11.5-15.5) % Neutrophils # 21.5 H (1.3-7.7) k/uL Lymphocytes # 0.8 L (1.0-4.8) k/uL PT (10.0-12.5) sec INR (<1.2) APTT 53.4 H (22.0-30.0) sec Sodium (137-145) mmol/L BUN (7-17) mg/dL Creatinine (0.52-1.04) mg/dL Glucose (74-99) mg/dL Total Protein (6.3-8.2) g/dL Albumin (3.5-5.0) g/dL HDL Cholesterol 66.10 H (40.00-60.00) mg/dL 09/23/23 09/23/23 09/23/23 Range/Units 07:33 07:33 07:33 WBC (3.8-10.6) k/uL RBC (3.80-5.40) m/uL Hgb (11.4-16.0) gm/dL Hct (34.0-46.0) % RDW (11.5-15.5) % Neutrophils # (1.3-7.7) k/uL Lymphocytes # (1.0-4.8) k/uL PT 21.0 H (10.0-12.5) sec INR 2.1 H (<1.2) APTT 51.4 H (22.0-30.0) sec Sodium 135 L (137-145) mmol/L BUN 57 H (7-17) mg/dL Creatinine 1.85 H (0.52-1.04) mg/dL Glucose 175 H (74-99) mg/dL Total Protein 4.8 L (6.3-8.2) g/dL Albumin 2.8 L (3.5-5.0) g/dL HDL Cholesterol (40.00-60.00) mg/dL Microbiology - Last 24 Hours (Table) 09/21/23 14:20 Blood Culture - Preliminary Blood 09/21/23 14:05 Blood Culture - Preliminary Blood
[2023-09-23 12:41] LABS: Appearance,Urine Clear (Clear); Bilirubin,Urine Negative (Negative); Blood,Urine Trace (Negative); Color,Urine Colorless; Glucose,Urine (UA) Negative (Negative); Ketones,Urine Negative (Negative); Leukocyte Esterase,Urine Negative (Negative); Mucus,Urine Rare /hpf; Nitrite,Urine Negative (Negative); PH, Urine 5.5 (5.0-8.0); Protein,Urine 2+ (Negative); RBC,Urine 1 /hpf (0-5); Specific Gravity,Urine 1.013 (1.001-1.035); Squamous Epithelial Cell,Urine 1 /hpf (0-4); Urobilinogen,Urine <2.0 mg/dL (<2.0); WBC,Urine 6 /hpf (0-5)
--- NOTE | 2023-09-23 12:41 | CT ---
EXAMINATION TYPE: CT abdomen pelvis wo con CT DLP: 409.9 mGycm, Automated exposure control for dose reduction was used. DATE OF EXAM: 09/23/2023 12:25 PM COMPARISON: CT abdomen pelvis most recent from 07/01/2023 . CLINICAL INDICATION:Female, 63 years old with history of abdominal pain; Abdominal pain TECHNIQUE: Standard CT of the abdomen and pelvis following the administration of oral contrast. Cor onal and sagittal reformats were performed. FINDINGS: LOWER CHEST: Patchy airspace opacities identified within the bilateral lower lobes and right greater the left. Mildly enlarged heart. ABDOMEN LIVER: Unremarkable GALLBLADDER AND BILE DUCTS: Unremarkable. PANCREAS: Unremarkable. SPLEEN: Unremarkable. ADRENAL GLANDS: Unremarkable. KIDNEYS AND URETERS: No evidence of hydronephrosis or renal calculus. PELVIS BLADDER: Incompletely distended but grossly unremarkable. REPRODUCTIVE: Unremarkable. ABDOMEN & PELVIS STOMACH AND BOWEL: Oral contrast is demonstrated within the distal esophagus extending to the stomach . Distal colonic diverticulosis most prominently involving the sigmoid colon. There is some fat stran ding with wall thickening involving the sigmoid colon. Small bowel gas-filled dilatation measuring up to 3.1 cm. Few air-fluid level regions identified within the pelvis. No definitive well organized fl uid collection within the pelvis. PERITONEUM: Peritoneum identified. VASCULATURE: Mild to moderate atherosclerotic calcifications are present throughout the abdominal aor ta and its branches. No evidence of aortic aneurysm. MUSCULOSKELETAL: No acute osseous abnormalities LYMPH NODES: No gross evidence for lymphadenopathy. SOFT TISSUE/ABDOMINAL WALL: Unremarkable IMPRESSION: 1. Pneumoperitoneum with findings of sigmoid diverticulitis. Additionally there is reactive small mauricio wel ileus. Examination is limited due to lack of intravenous contrast. Oral contrast only reaches the proximal stomach. Cannot exclude pelvic abscess. 2. Patchy airspace opacities within both lower lobes suggestive of pneumonia. Findings called to and discussed with at Dr. Franklin Marrero at 12:38 PM on 09/23/2023.
--- NOTE | 2023-09-23 12:49 | P.PN ---
Subjective Progress Note Date: 09/23/23 Principal diagnosis: Shortness of breath. This is a 63-year-old female patient with a known history of chronic obstructive pulmonary disease, former smoker, previous acute kidney injury requiring dialysis that she completed approximately 2 weeks ago. She presented here to the emergency room today with increasing shortness of breath. Symptoms started just this morning. No fever or chills. No cough or congestion. Mainly dyspnea on minimal exertion. Chest x-ray reveals evidence of COPD with superimposed interstitial opacities, possible pulmonary edema versus atypical pneumonia. White count 27.9. Hemoglobin 10.5. Platelets 294. INR 1.3. Sodium 136. Potassium 4.3. Bicarb 30. BUN 47. Creatinine 1.56. Glucose 196. Troponin 0.205. proBNP 60,000. The patient is seen in consultation in the emergency department. She is currently sitting up on the stretcher. Awake and alert. On BiPAP 14/5 and 40% FiO2 to maintain O2 saturations in the 90s. Been initiated o n a heparin drip. Initiated on antibiotics, bronchodilators and steroids. The patient is seen today September 22, 2023 in follow-up in the emergency department. She is awake and alert in no acute distress. Breathing easier today compared to yesterday. She is maintaining good O2 saturations in the 90s on 2 L/min per nasal cannula. She has been off the BiPAP. She remains on a heparin drip. Peak troponin 0.521. She is continued on DuoNeb inhalations, Symbicort, Solu-Medrol. She is continued on ceftriaxone. Chest x-ray shows diffuse interstitial opacities with slight improvement. Progress note dated September 23, 2023. 63-year-old female with a history of underlying COPD. The patient was initially seen in the emergency department, 2 days ago, with a COPD exacerbation. Initially, the patient had mental status changes, and she was not particularly alert, and required BiPAP. Currently, she is doing much better. She is currently on 2 L. She did not use the BiPAP last night. She is complaining of left groin pain, and thinks that she may have a bladder infection. The urinalysis call, culture and sensitivity have been ordered. From the pulmonary standpoint, she is improved. Current labs include a white count 23.1, hemoglobin 8.4, hematocrit 26.3, and platelet count 294,000. PT 21, INR 2.1, PTT 51.4. Sodium 135, potassium 3.9, chloride 99, CO2 26, BUN 57, creatinine 1.85. Urine is colorless and clear. There is 2+ protein. Trace ketones. Nitrite was negative. LE was negative. There is only 6 WBCs, no bacteria. CT of the abdomen and pelvis shows evidence of pneumoperitoneum with findings of sigmoid diverticulitis. Objective - Vital Signs Vital signs: Vital Signs Temp 97.6 F 09/23/23 08:00 Pulse 110 H 09/23/23 12:00 Resp 20 09/23/23 12:00 BP 133/86 09/23/23 12:00 Pulse Ox 94 L 09/23/23 12:00 FiO2 35 09/21/23 20:21 Intake & Output 09/22/23 09/23/23 09/23/23 18:59 06:59 18:59 Intake Total 59.811 104.546 118 Output Total 100 Balance 59.811 104.546 18 Weight 68.039 kg 57.5 kg Intake: IV 10 0.9 10 Intake, IV Titration 59.811 94.546 Amount Heparin Sod,Pork in 0.45% 59.811 94.546 NaCl 25,000 unit In 0.45 % NaCl 1 250ml.bag @ 12 UNITS/KG/HR 8.165 mls/hr IV .Q24H [facility] Rx#: [id number] Oral 118 Output: Urine 100 Other: Voiding Method Toilet # Voids 2 - Exam No acute distress, oriented 3. The patient is complaining of severe pain in the left groin area. She is currently on 2 L. HEENT examination is grossly unremarkable. Mucous membranes are moist. No oral lesions. Neck supple. Full range of motion. No adenopathy thyromegaly or neck vein distention. Cardiovascular examination reveals regular rhythm rate. S1-S2 normal. No S3 or S4. No discernible murmur noted. Heart rate 110 bpm. Lungs reveal mostly clear breath sounds. Breath sounds are improved. There is scattered rhonchi noted. No wheezes or crackles. Abdomen soft bowel sounds are heard. No masses or tenderness. Extremities are intact. No cyanosis clubbing or edema. Skin is without rash or lesion. Neurologic examination is brief but nonfocal. - Labs CBC & Chem 7: 09/23/23 07:33 09/23/23 07:33 Labs: Abnormal Lab Results - Last 24 Hours (Table) 09/22/23 09/22/23 09/23/23 Range/Units 07:17 16:32 07:33 WBC 23.1 H (3.8-10.6) k/uL RBC 2.83 L (3.80-5.40) m/uL Hgb 8.4 L D (11.4-16.0) gm/dL Hct 26.3 L (34.0-46.0) % RDW 19.7 H (11.5-15.5) % Neutrophils # 21.5 H (1.3-7.7) k/uL Lymphocytes # 0.8 L (1.0-4.8) k/uL PT (10.0-12.5) sec INR (<1.2) APTT 53.4 H (22.0-30.0) sec Sodium (137-145) mmol/L BUN (7-17) mg/dL Creatinine (0.52-1.04) mg/dL Glucose (74-99) mg/dL Total Protein (6.3-8.2) g/dL Albumin (3.5-5.0) g/dL HDL Cholesterol 66.10 H (40.00-60.00) mg/dL Urine Protein (Negative) Urine Blood (Negative) Urine WBC (0-5) /hpf Urine Mucus (None) /hpf 09/23/23 09/23/23 09/23/23 Range/Units 07:33 07:33 07:33 WBC (3.8-10.6) k/uL RBC (3.80-5.40) m/uL Hgb (11.4-16.0) gm/dL Hct (34.0-46.0) % RDW (11.5-15.5) % Neutrophils # (1.3-7.7) k/uL Lymphocytes # (1.0-4.8) k/uL PT 21.0 H (10.0-12.5) sec INR 2.1 H (<1.2) APTT 51.4 H (22.0-30.0) sec Sodium 135 L (137-145) mmol/L BUN 57 H (7-17) mg/dL Creatinine 1.85 H (0.52-1.04) mg/dL Glucose 175 H (74-99) mg/dL Total Protein 4.8 L (6.3-8.2) g/dL Albumin 2.8 L (3.5-5.0) g/dL HDL Cholesterol (40.00-60.00) mg/dL Urine Protein (Negative) Urine Blood (Negative) Urine WBC (0-5) /hpf Urine Mucus (None) /hpf 09/23/23 Range/Units 12:10 WBC (3.8-10.6) k/uL RBC (3.80-5.40) m/uL Hgb (11.4-16.0) gm/dL Hct (34.0-46.0) % RDW (11.5-15.5) % Neutrophils # (1.3-7.7) k/uL Lymphocytes # (1.0-4.8) k/uL PT (10.0-12.5) sec INR (<1.2) APTT (22.0-30.0) sec Sodium (137-145) mmol/L BUN (7-17) mg/dL Creatinine (0.52-1.04) mg/dL Glucose (74-99) mg/dL Total Protein (6.3-8.2) g/dL Albumin (3.5-5.0) g/dL HDL Cholesterol (40.00-60.00) mg/dL Urine Protein 2+ H (Negative) Urine Blood Trace H (Negative) Urine WBC 6 H (0-5) /hpf Urine Mucus Rare H (None) /hpf Microbiology - Last 24 Hours (Table) 09/21/23 14:20 Blood Culture - Preliminary Blood 09/21/23 14:05 Blood Culture - Preliminary Blood Assessment and Plan Assessment: Acute hypoxemic respiratory failure secondary to an acute exacerbation of chronic obstructive pulmonary disease, acute systolic congestive heart failure. Acute left lower quadrant pain, with evidence of pneumoperitoneum, and sigmoid diverticulitis. Troponin leak. Acute kidney injury. Leukocytosis. Severe cardiomyopathy with an ejection fraction of 25-30 %. History of chronic obstructive pulmonary disease. Chronic tobacco dependence. Question of vasculitis and was to have had a kidney biopsy in June 2023. Acute kidney injury requiring temporary hemodialysis, states completed 2 weeks ago. History of PE/DVT, on warfarin subtherapeutic INR at 1.3. Plan: Plan dated September 23, 2023. The patient certainly doing much better from the pulmonary standpoint. Unfortunately, she complained of acute left lower quadrant/groin pain and we ordered a urinalysis which was clear. A CT scan of the abdomen and pelvis reveals evidence of pneumoperitoneum, with evidence of sigmoid diverticulitis. Surgery obviously should be consulted. Labs, x-rays and medications are reviewed. The patient is a no code patient. Time with Patient: Less than 30
--- NOTE | 2023-09-23 14:18 | P.GSCN ---
History of Present Illness Consult date: 09/23/23 History of present illness: CHIEF COMPLAINT: Shortness of breath HISTORY OF PRESENT ILLNESS: This is a 63-year-old female who presented with shortness of breath and was found to have evidence of a COPD exacerbation. 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 Patient reports having lower abdominal pain for the last 3 to 4 days. Pain was more in the lower suprapubic area. Per nursing staff patient had significant increased pain and today in which she the attending was notified and a CT scan abdomen and pelvis was completed that reported pneumoperitoneum with findings of sigmoid diverticulitis. Surgical consult was called place due to the pneumoperitoneum. Patient denies any prior history of diverticulitis. She reports her last colonoscopy was 5 years ago and was unremarkable. Patient does report that she currently has no pain. She does feel a little bloated. Patient does report having had constipation but now having normal bowel movements. PAST MEDICAL HISTORY: See below PAST SURGICAL HISTORY: See below MEDICATIONS: See below ALLERGIES: See below SOCIAL HISTORY: No illicit drug use. REVIEW OF SYSTEMS: CONSTITUTIONAL: Denies fever or chills. HEENT: Denies blurred vision, vision changes, or eye pain. Denies hemoptysis CARDIOVASCULAR: Denies chest pain or pressure. RESPIRATORY: No shortness of breath. GASTROINTESTINAL: See HPI for pertinent findings HEMATOLOGIC: Denies bleeding disorders. GENITOURINARY: Denies any blood in urine or increased urinary frequency. SKIN: Denies pruitis. Denies rash. PHYSICAL EXAM: VITAL SIGNS: Reviewed GENERAL: Well-developed in no acute distress. HEENT: No sclera icterus. Extraocular movements grossly intact. Moist buccal mucosa. Head is atraumatic, normocephalic. No nasal drainage. ABDOMEN: Soft. Mildly distended. Currently nontender NEUROLOGIC: Alert and oriented. Cranial nerves II through XII grossly intact. LABORATORY DATA: WBC 23.1 Hgb 8.4 platelets 294 INR 2.1 Sodium 135 potassium 3.9 creatinine 1.85 IMAGING: CT scan abdomen pelvis reports pneumoperitoneum with findings of sigmoid diverticulitis additionally there is reactive small bowel ileus. Cannot exclude pelvic abscess. Patchy airspace opacities within both lower lobes suggestive of pneumonia. Echo EF of 25 to 30%, moderate to severe mitral regurgitation, mild aortic reg urgitation moderate tricuspid regurgitation ASSESSMENT: 1. Pneumoperitoneum with findings of sigmoid diverticulitis. Suspected perforated diverticulitis. PLAN: -Patient scheduled for exploratory laparotomy with partial colectomy and colostomy today with Dr. Alvarenga -Patient made n.p.o. -Agree with antibiotics -INR is 2.1, Coumadin will need to be reversed prior to surgery Physician Play Writer note has been reviewed by physician. Signing provider agrees with the documented findings, assessment, and plan of care. I have personally seen and examined the patient, reviewed the FOOD EQUIPMENT SERVICE TECHNICIAN /PAs history, exam and MDM and agree with the assessment and plan as written. Based on total visit time, I have performed more than 50% of the visit. As above: 63-year-old female with lower abdominal pain. Patient with significant leukocytosis and CAT scan findings showing large volume pneumoperitoneum with multiple air collections in the pelvis suspicious for multiloculated perforation. On exam patient has tenderness in the left lower quadrant. Clinical scenario discussed with the patient and also pulmonary and cardiology. Patient is high risk for intervention however given the CAT scan findings along with tachycardia and significant leukocytosis surgical intervention remains a viable option. Options of laparotomy versus observation discussed with patient. Surgery likely to include sigmoid resection with colostomy placement. Patient is agreeable. Will proceed with exploratory laparotomy, partial colectomy, possible colostomy. Risks of bleeding, infection, abscess, hernia, dehiscence, respiratory and cardiac complications. She understands and wishes to proceed. Past Medical History Past Medical History: COPD, Dialysis Additional Past Medical History / Comment(s): ANCA vasculitis, dialysis-recently discontinued History of Any Multi-Drug Resistant Organisms: None Reported Additional Past Surgical History / Comment(s): dialysis port inserted Past Psychological History: No Psychological Hx Reported Smoking Status: Former smoker Past Alcohol Use History: Unable to Obtain Past Drug Use History: Unable to Obtain Medications and Allergies Home Medications Medication Instructions Recorded Confirmed Type Albuterol Sulfate [Ventolin HFA] 1 - 2 puff INHALATION RT-Q4H PRN 06/29/23 09/21/23 History Cholecalciferol [Vitamin D3 (25 25 mcg PO DAILY 06/29/23 09/21/23 History Mcg = 1000 Iu)] Fluticasone/Umeclidin/Vilanter 1 puff INHALATION RT-DAILY 06/29/23 09/21/23 History [Trelegy Ellipta 200-62.5-25] Furosemide [Lasix] 80 mg PO DAILY 08/26/23 09/21/23 History Isosorbide Dinitrate [Isordil] 10 mg PO DAILY 08/26/23 09/21/23 History Pantoprazole [Protonix] 40 mg PO DAILY 08/26/23 09/21/23 History Sulfamethox-Tmp 800-160Mg [Bactrim 2 tab PO DIRECTED 08/26/23 09/21/23 History DS 800-160 mg] Warfarin [Coumadin] 2.5 mg PO DAILY 08/26/23 09/21/23 History carvediloL [Coreg] 6.25 mg PO BID 08/26/23 09/21/23 History guaiFENesin [guaiFENesin Oral 200 mg PO Q4H PRN 08/26/23 09/21/23 History Solution] predniSONE [Deltasone] 60 mg PO DAILY 08/26/23 09/21/23 History Atorvastatin [Lipitor] 40 mg PO DAILY 09/21/23 09/21/23 History Ondansetron Odt [Zofran Odt] 4 mg PO Q6H PRN 09/21/23 09/21/23 History Oyster Shell Calcium 500 mg PO DAILY 09/21/23 09/21/23 History Potassium Chloride [Potassium 20 meq PO BID 09/21/23 09/21/23 History Chloride ER (K-Dur GEQ)] Allergies Allergy/AdvReac Type Severity Reaction Status Date / Time No Known Allergies Allergy Verified 09/21/23 16:39 Surgical - Exam Vital Signs Temp Pulse Resp BP Pulse Ox FiO2 97.3 F L 145 H 28 H 168/110 98 50 09/21/23 13:45 09/21/23 13:45 09/21/23 13:45 09/21/23 13:45 09/21/23 13:45 09/21/23 13:45 Results - Labs 09/23/23 07:33 09/23/23 07:33 Abnormal Lab Results - Last 24 Hours (Table) 09/22/23 09/22/23 09/23/23 Range/Units 07:17 16:32 07:33 WBC 23.1 H (3.8-10.6) k/uL RBC 2.83 L (3.80-5.40) m/uL Hgb 8.4 L D (11.4-16.0) gm/dL Hct 26.3 L (34.0-46.0) % RDW 19.7 H (11.5-15.5) % Neutrophils # 21.5 H (1.3-7.7) k/uL Lymphocytes # 0.8 L (1.0-4.8) k/uL PT (10.0-12.5) sec INR (<1.2) APTT 53.4 H (22.0-30.0) sec Sodium (137-145) mmol/L BUN (7-17) mg/dL Creatinine (0.52-1.04) mg/dL Glucose (74-99) mg/dL Total Protein (6.3-8.2) g/dL Albumin (3.5-5.0) g/dL HDL Cholesterol 66.10 H (40.00-60.00) mg/dL Urine Protein (Negative) Urine Blood (Negative) Urine WBC (0-5) /hpf Urine Mucus (None) /hpf 09/23/23 09/23/23 09/23/23 Range/Units 07:33 07:33 07:33 WBC (3.8-10.6) k/uL RBC (3.80-5.40) m/uL Hgb (11.4-16.0) gm/dL Hct (34.0-46.0) % RDW (11.5-15.5) % Neutrophils # (1.3-7.7) k/uL Lymphocytes # (1.0-4.8) k/uL PT 21.0 H (10.0-12.5) sec INR 2.1 H (<1.2) APTT 51.4 H (22.0-30.0) sec Sodium 135 L (137-145) mmol/L BUN 57 H (7-17) mg/dL Creatinine 1.85 H (0.52-1.04) mg/dL Glucose 175 H (74-99) mg/dL Total Protein 4.8 L (6.3-8.2) g/dL Albumin 2.8 L (3.5-5.0) g/dL HDL Cholesterol (40.00-60.00) mg/dL Urine Protein (Negative) Urine Blood (Negative) Urine WBC (0-5) /hpf Urine Mucus (None) /hpf 09/23/23 Range/Units 12:10 WBC (3.8-10.6) k/uL RBC (3.80-5.40) m/uL Hgb (11.4-16.0) gm/dL Hct (34.0-46.0) % RDW (11.5-15.5) % Neutrophils # (1.3-7.7) k/uL Lymphocytes # (1.0-4.8) k/uL PT (10.0-12.5) sec INR (<1.2) APTT (22.0-30.0) sec Sodium (137-145) mmol/L BUN (7-17) mg/dL Creatinine (0.52-1.04) mg/dL Glucose (74-99) mg/dL Total Protein (6.3-8.2) g/dL Albumin (3.5-5.0) g/dL HDL Cholesterol (40.00-60.00) mg/dL Urine Protein 2+ H (Negative) Urine Blood Trace H (Negative) Urine WBC 6 H (0-5) /hpf Urine Mucus Rare H (None) /hpf Microbiology - Last 24 Hours (Table) 09/21/23 14:20 Blood Culture - Preliminary Blood 09/21/23 14:05 Blood Culture - Preliminary Blood Diabetes panel 09/22/23 09/23/23 Range/Units 07:17 07:33 Sodium 135 L (137-145) mmol/L Potassium 3.9 (3.5-5.1) mmol/L Chloride 99 (98-107) mmol/L Carbon Dioxide 26 (22-30) mmol/L BUN 57 H (7-17) mg/dL Creatinine 1.85 H (0.52-1.04) mg/dL Glucose 175 H (74-99) mg/dL Calcium 8.6 (8.4-10.2) mg/dL AST 24 (14-36) U/L ALT 16 (4-34) U/L Alkaline Phosphatase 97 (38-126) U/L Total Protein 4.8 L (6.3-8.2) g/dL Albumin 2.8 L (3.5-5.0) g/dL Triglycerides 87.10 (0.00-149.00) mg/dL HDL Cholesterol 66.10 H (40.00-60.00) mg/dL Calcium panel 09/23/23 Range/Units 07:33 Calcium 8.6 (8.4-10.2) mg/dL Albumin 2.8 L (3.5-5.0) g/dL Pituitary panel 09/23/23 Range/Units 07:33 Sodium 135 L (137-145) mmol/L Potassium 3.9 (3.5-5.1) mmol/L Chloride 99 (98-107) mmol/L Carbon Dioxide 26 (22-30) mmol/L BUN 57 H (7-17) mg/dL Creatinine 1.85 H (0.52-1.04) mg/dL Glucose 175 H (74-99) mg/dL Calcium 8.6 (8.4-10.2) mg/dL Adrenal panel 09/23/23 Range/Units 07:33 Sodium 135 L (137-145) mmol/L Potassium 3.9 (3.5-5.1) mmol/L Chloride 99 (98-107) mmol/L Carbon Dioxide 26 (22-30) mmol/L BUN 57 H (7-17) mg/dL Creatinine 1.85 H (0.52-1.04) mg/dL Glucose 175 H (74-99) mg/dL Calcium 8.6 (8.4-10.2) mg/dL Total Bilirubin 0.3 (0.2-1.3) mg/dL AST 24 (14-36) U/L ALT 16 (4-34) U/L Alkaline Phosphatase 97 (38-126) U/L Total Protein 4.8 L (6.3-8.2) g/dL Albumin 2.8 L (3.5-5.0) g/dL
[2023-09-23] MEDS: PHYTONADIONE 10 MG in SODIUM CHLORIDE 0.9% 50 ML IVPB STA (15:01)
[2023-09-23 15:34] LABS: % Iron Saturation 11.92 (12.00-45.00)
[2023-09-23] MEDS: IV FLUID CONTINUATION 1,000 ML IV ONE (16:34)
[2023-09-23] MEDS: ONDANSETRON 4 MG/2 ML VIAL IVP STA (16:58)
--- NOTE | 2023-09-23 17:33 | P.PN ---
Subjective Progress Note Date: 09/23/23 This is a 63-year-old female patient of Dr. Daniels who presented to the ER with concerns of increased shortness of breath. Patient was recently admitted at [facility] last week for similar symptoms but did leave AMA prior to completion of treatment. Patient was alsopatient was also recently admitted recently admitted and transferred to [facility] and transferred to [facility] due to diagnosis of vasculitis and required hemodialysis during the hospital stay patient also had episode of pulmonary embolism in which she was started on Coumadin. Patient recently had hemodialysis catheter DC'd.. Additional medical history includes COPD and ex-smoker. Chest x-ray completed in ER showing COPD with superimposed interstitial opacities possible interstitial pulmonary edema versus atypicalCOPD with superimposed interstitial bases possible interstitial pulmonary edema versus atypical pneumonitis. Lab work revealing BNP level 60,000.. [id number] 0.205, 0.403 and 0.521. Creatinine 1.56 bun 47. White blood cell 27.9 hemoglobin 10.5 . Patient was started on Zithromax and Rocephin. Given dose of IV Lasix. Started on heparin drip for elevated troponins. Cardiology pulmonary and nephrology services consulted. Cardiology pulmonary and nephrology service is consulted. Current vital signs Temp 97.3, heart rate 95, respiratory rate 18, blood pressure 143/88 with a pulse ox of 96% on 2 L. On 09/23/2023 patient was seen and examined on the medical floor she is alert and oriented x 3 in no apparent distress, she started complaining of severe abdominal pain in the bilateral lower quadrants this morning, otherwise she denies any complaints there is no fever or chills no headache or dizziness no chest pain no shortness of breath no cough no nausea or vomiting no diarrhea no blood in the stools no burning with urination no frequency or urgency and no hematuria, CT scan of the abdomen and pelvis without contrast was ordered, will follow closely Objective - Vital Signs Vital signs: Vital Signs Temp 96.8 F L 09/23/23 17:13 Pulse 96 09/23/23 17:13 Resp 18 09/23/23 17:13 BP 142/92 09/23/23 17:13 Pulse Ox 95 09/23/23 17:13 FiO2 35 09/21/23 20:21 Intake & Output 09/22/23 09/23/23 09/23/23 18:59 06:59 18:59 Intake Total 59.811 104.546 236 Output Total 100 Balance 59.811 104.546 136 Weight 68.039 kg 57.5 kg Intake: IV 10 0.9 10 Intake, IV Titration 59.811 94.546 Amount Heparin Sod,Pork in 0.45% 59.811 94.546 NaCl 25,000 unit In 0.45 % NaCl 1 250ml.bag @ 12 UNITS/KG/HR 8.165 mls/hr IV .Q24H [facility] Rx#: [id number] Oral 236 Blood Product 0 Ffp 24 Pher Acda Cnt1 0 Unit [id number] Output: Urine 100 Other: Voiding Method Toilet # Voids 2 - Exam Physical examHead normocephalic Neck supple Lungs diminished bilaterally Heart regular rate and rhythm S1-S2, no rub or gallop Abdomen is soft with mild diffuse tenderness especially in the pelvic area bilaterally no organomegaly no palpable masses Extremities no edema Neuro alert and orientated to 3 - Labs CBC & Chem 7: 09/23/23 07:33 09/23/23 07:33 Labs: Abnormal Lab Results - Last 24 Hours (Table) 09/23/23 09/23/23 09/23/23 Range/Units 07:33 07:33 07:33 WBC 23.1 H (3.8-10.6) k/uL RBC 2.83 L (3.80-5.40) m/uL Hgb 8.4 L D (11.4-16.0) gm/dL Hct 26.3 L (34.0-46.0) % RDW 19.7 H (11.5-15.5) % Neutrophils # 21.5 H (1.3-7.7) k/uL Lymphocytes # 0.8 L (1.0-4.8) k/uL PT (10.0-12.5) sec INR (<1.2) APTT 51.4 H (22.0-30.0) sec Sodium 135 L (137-145) mmol/L BUN 57 H (7-17) mg/dL Creatinine 1.85 H (0.52-1.04) mg/dL Glucose 175 H (74-99) mg/dL Iron (50-170) UG/DL % Saturation (12.00-45.00) Transferrin (204.0-354.0) mg/dL Ferritin (10.0-291.0) ng/mL Total Protein 4.8 L (6.3-8.2) g/dL Albumin 2.8 L (3.5-5.0) g/dL Urine Protein (Negative) Urine Blood (Negative) Urine WBC (0-5) /hpf Urine Mucus (None) /hpf 09/23/23 09/23/23 09/23/23 Range/Units 07:33 07:33 12:10 WBC (3.8-10.6) k/uL RBC (3.80-5.40) m/uL Hgb (11.4-16.0) gm/dL Hct (34.0-46.0) % RDW (11.5-15.5) % Neutrophils # (1.3-7.7) k/uL Lymphocytes # (1.0-4.8) k/uL PT 21.0 H (10.0-12.5) sec INR 2.1 H (<1.2) APTT (22.0-30.0) sec Sodium (137-145) mmol/L BUN (7-17) mg/dL Creatinine (0.52-1.04) mg/dL Glucose (74-99) mg/dL Iron 31 L (50-170) UG/DL % Saturation 11.92 L (12.00-45.00) Transferrin 186.0 L (204.0-354.0) mg/dL Ferritin 1231.0 H (10.0-291.0) ng/mL Total Protein (6.3-8.2) g/dL Albumin (3.5-5.0) g/dL Urine Protein 2+ H (Negative) Urine Blood Trace H (Negative) Urine WBC 6 H (0-5) /hpf Urine Mucus Rare H (None) /hpf Microbiology - Last 24 Hours (Table) 09/21/23 14:20 Blood Culture - Preliminary Blood 09/21/23 14:05 Blood Culture - Preliminary Blood Assessment and Plan Assessment: 1. Acute hypoxic respiratory failure secondary to acute exacerbation of COPD and acute systolic congestive heart failure 2. Acute exacerbation of COPD. Patient started on IV steroids 3. Acute systolic congestive heart failure 4. Elevated troponins 5. Acute on chronic kidney disease 6. Recent diagnosis of vasculitis at [facility] 7. Recent history of PE/DVT maintained on Coumadin 8. History of cardiomyopathy with EF of 15 to 20% 9. History of tobacco abuse recently quit DVT prophylaxis heparin drip. GI prophylaxis Protonix Pulmonary, cardiology and nephrology services consulted Patient started on IV steroids and IV antibiotics Started on IV heparin drip
[2023-09-23] MEDS ORDERED: ROCURONIUM 10 MG/ML (5 ML VIAL) IV ONE (17:41)
[2023-09-23] MEDS ORDERED: ALBUTEROL HFA INHALER INHALATION ONE (17:41)
[2023-09-23] MEDS ORDERED: SUCCINYLCHOLINE CHLORIDE 200 MG/10 ML VIAL IV ONE (17:41)
[2023-09-23] MEDS ORDERED: fentaNYL (PF) 50 MCG/ML 2 ML AMP ONE (17:41)
[2023-09-23] MEDS ORDERED: PROPOFOL 10 MG/ML 20 ML VIAL IV ONE (17:41)
[2023-09-23] MEDS ORDERED: LIDOCAINE 1% INJ 10MG/ML (20 ML MDV) ONE (17:41)
[2023-09-23] MEDS: LACTATED RINGERS 500 ML IV ONE (17:41)
[2023-09-23] MEDS ORDERED: SUGAMMADEX SODIUM 200 MG/2 ML SDV IV ONE (17:41)
[2023-09-23] MEDS ORDERED: WARFARIN 2.5 MG TAB PO ONE (18:00)
[2023-09-23] MEDS ORDERED: ONDANSETRON 4 MG/2 ML VIAL IVP PRN (20:02)
[2023-09-23] MEDS ORDERED: traMADol 50 MG TAB PO PRN (20:02)
--- NOTE | 2023-09-23 20:09 | P.OP ---
Date of Procedure: 09/23/23 Procedure(s) Performed: PREOPERATIVE DIAGNOSIS: Perforated sigmoid diverticulitis POSTOPERATIVE DIAGNOSIS: Same PROCEDURE: Diagnostic laparoscopy, sigmoid colectomy with end colostomy SURGEON: Colette EBL: 25 mL ANESTHESIA: General COMPLICATIONS: None OPERATIVE PROCEDURE: Patient place in the operative table in the supine position. The patient was placed under general anesthesia. The abdomen was prepped and draped in usual sterile fashion. A 5 mm optical trocar was used to enter the peritoneal cavity in the right upper quadrant. Full insufflation took place to 15 mmHg. 2 additional 5 mm trocars were then placed. The small bowel had a few loops that were densely adherent to the pelvis. These were lysed superiorly and in doing so I entered into a feculent appearing purulent collection. Once that was visualized I decided to abort our laparoscopic approach and convert to open. Pneumoperitoneum was evacuated. A vertical incision was made extending from the suprapubic region to the umbilicus. The fascia was divided as well. Upon entrance into the peritoneal cavity purulent fluid was identified. Cultures were taken. The Bookwalter retractor was utilized. There were small bowel loops that were gently adherence to the inflamed sigmoid colon loop. These were able to be lysed quite easily. The sigmoid colon was quite inflamed. This was mobilized initially bluntly. Later the white line of Toldt was divided mobilizing further. The site of perforation was identified. I divided the sigmoid colon proximal to this using a linear 75 stapler. The mesentery was divided at that time using the LigaSure device. Beyond the inflamed segment I divided the distal sigmoid colon using a additional load of the linear stapler. Once I had enough length on the colon the abdomen was copiously irrigated with 3 L of saline. No further purulence was encountered at that time. A circular incision was made in the left midabdomen. Dissection through the subcutaneous fat and fascia took place using electrocautery. I bluntly entered the peritoneal cavity and this was further bluntly opened. The bowel was brought out through this defect in the left midabdomen. A drain was brought into the abdomen through one of our 5 mm trocar sites. This was placed deep in the pelvis and sutured to the skin using a 3-0 silk stitch. The midline fascia was then reapproximated using 2 separate double-stranded #1 PDS sutures. The subcutaneous tissues were irrigated. The subcutaneous tissues were closed using 3-0 Vicryl sutures. The skin was then closed using willam. The ostomy was then addressed. A portion of the pericolonic fat was removed using the LigaSure device. The staple line was then removed using electrocautery. The ostomy was then matured in a [place] sal[place] fashion using interrupted 3-0 Vicryl sutures. An ostomy appliance was then applied. Sterile dressings were then applied to the midline incision. DISPOSITION: Stable to recovery room
[2023-09-23] MEDS: HYDROmorphone 0.5 MG/0.5 ML SYRINGE IVP PRN (20:11)
[2023-09-23] MEDS: PIPERACILLIN-TAZOBACTAM 3.375 GM in SODIUM CHLORIDE 0.9% 100 ML IVPB SCH (21:24)
[2023-09-23] MEDS: LACTATED RINGERS 1,000 ML IV SCH (21:40)
--- NOTE | 2023-09-23 21:57 | P.CONS ---
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 and has received 2 doses of rituximab currently on prednisone presenting to the hospital 3 days ago for evaluation of increasing shortness of breath and this patient symptom has been going on for a day or 2 before presentation the hospital patient denies having any chest pain she did have a cough not bring up any sputum patient also complaining of abdominal pain over the last few days that has got worse yesterday patient describes the pain to be sharp moderate to severe intensity about 7 out of 10 mostly lower abdominal area without any radiation nausea but no vomiting denies having any diarrhea and constipation with a bowel movement daily over the last few days however the patient when she was constipated about a week ago with the symptoms the patient has been evaluated on presentation to the hospital patient was afebrile and no fever have recorded during this hospital stay patient was tachycardic but not hypotensive mildly hypoxic on supplemental oxygen patient did have white count 27 point 9 repeat is 23.1 as of yesterday no CBC was done today patient did have elevated BUN and creatinine with a creatinine 1.85 today electrolytes has been normal liver enzymes are normal troponin was elevated blood cultures has been negative so far patient did have a chest x-ray on admission COPD with superimposed interstitial opacities possible interstitial pulm edema versus atypical pne umonia patient did have a CT of abdominal pelvis completed this afternoon reported as pneumoperitoneum findings of sigmoid diverticulitis and reactive small bowel ileus patient is vasopressor within the both lower lobes patient be started on Zosyn infectious was consulted for further management of antibiotic therapy Review of Systems Positive point and negatives has been mentioned in the HPI, complete review of systems was performed and all other systems are negative Past Medical History Past Medical History: COPD, Dialysis Additional Past Medical History / Comment(s): ANCA vasculitis, dialysis-recently discontinued History of Any Multi-Drug Resistant Organisms: None Reported Additional Past Surgical History / Comment(s): dialysis port inserted Past Psychological History: No Psychological Hx Reported Smoking Status: Former smoker Past Alcohol Use History: Unable to Obtain Past Drug Use History: Unable to Obtain Medications and Allergies Home Medications Medication Instructions Recorded Confirmed Type Albuterol Sulfate [Ventolin HFA] 1 - 2 puff INHALATION RT-Q4H PRN 06/29/23 09/21/23 History Cholecalciferol [Vitamin D3 (25 25 mcg PO DAILY 06/29/23 09/21/23 History Mcg = 1000 Iu)] Fluticasone/Umeclidin/Vilanter 1 puff INHALATION RT-DAILY 06/29/23 09/21/23 History [Trelegy Ellipta 200-62.5-25] Furosemide [Lasix] 80 mg PO DAILY 08/26/23 09/21/23 History Isosorbide Dinitrate [Isordil] 10 mg PO DAILY 08/26/23 09/21/23 History Pantoprazole [Protonix] 40 mg PO DAILY 08/26/23 09/21/23 History Sulfamethox-Tmp 800-160Mg [Bactrim 2 tab PO DIRECTED 08/26/23 09/21/23 History DS 800-160 mg] Warfarin [Coumadin] 2.5 mg PO DAILY 08/26/23 09/21/23 History carvediloL [Coreg] 6.25 mg PO BID 08/26/23 09/21/23 History guaiFENesin [guaiFENesin Oral 200 mg PO Q4H PRN 08/26/23 09/21/23 History Solution] predniSONE [Deltasone] 60 mg PO DAILY 08/26/23 09/21/23 History Atorvastatin [Lipitor] 40 mg PO DAILY 09/21/23 09/21/23 History Ondansetron Odt [Zofran Odt] 4 mg PO Q6H PRN 09/21/23 09/21/23 History Oyster Shell Calcium 500 mg PO DAILY 09/21/23 09/21/23 History Potassium Chloride [Potassium 20 meq PO BID 09/21/23 09/21/23 History Chloride ER (K-Dur GEQ)] Allergies Allergy/AdvReac Type Severity Reaction Status Date / Time No Known Allergies Allergy Verified 09/21/23 16:39 Physical Exam Vitals: Vital Signs Temp Pulse Pulse Resp BP BP Pulse Ox 09/23/23 12:00 110 H 20 133/86 94 L 09/23/23 09:57 88 09/23/23 09:38 90 09/23/23 08:00 97.6 F 102 H 20 129/76 96 09/23/23 04:00 97.7 F 85 20 124/68 98 09/23/23 02:00 85 20 09/23/23 00:00 97.6 F 96 20 119/73 93 L 09/22/23 22:36 92 09/22/23 22:23 92 09/22/23 20:00 85 20 09/22/23 19:38 97.8 F 72 20 123/77 98 09/22/23 16:10 98.2 F 100 18 126/84 96 09/22/23 16:05 96 09/22/23 16:00 18 124/77 96 09/22/23 15:55 91 09/22/23 14:23 18 09/22/23 14:22 98.1 F 105 H 18 119/69 96 Intake and Output 09/22/23 09/23/23 09/23/23 22:59 06:59 14:59 Intake Total 104.546 118 Output Total 100 Balance 104.546 18 Intake: IV 10 0.9 10 Intake, IV Titration 94.546 Amount Heparin Sod,Pork in 0.45% 94.546 NaCl 25,000 unit In 0.45 % NaCl 1 250ml.bag @ 12 UNITS/KG/HR 8.165 mls/hr IV .[facility]H [facility] Rx#: [id number] Oral 118 Output: Urine 100 Other: Voiding Method Toilet Toilet # Voids 2 Weight 68.039 kg 57.5 kg GENERAL DESCRIPTION: Middle-aged female lying in bed, no distress. No tachypnea or accessory muscle of respiration use. HEENT: Shows Pallor , no scleral icterus. Oral mucous membrane is dry. NECK: Trachea central, no thyromegaly. LUNGS: Unlabored breathing. Coarse breath sounds bilaterally HEART: S1, S2, regular rate and rhythm. No loud murmur ABDOMEN: Soft, mild distention and tenderness EXTREMITIES: No edema of feet. SKIN: No rash, no masses palpable. NEUROLOGICAL: The patient is awake, alert, oriented x3, mood and affect normal. Results CBC & Chem 7: 09/23/23 07:33 09/23/23 07:33 Labs: Abnormal Lab Results - Last 24 Hours (Table) 09/22/23 09/22/23 09/23/23 Range/Units 07:17 16:32 07:33 WBC 23.1 H (3.8-10.6) k/uL RBC 2.83 L (3.80-5.40) m/uL Hgb 8.4 L D (11.4-16.0) gm/dL Hct 26.3 L (34.0-46.0) % RDW 19.7 H (11.5-15.5) % Neutrophils # 21.5 H (1.3-7.7) k/uL Lymphocytes # 0.8 L (1.0-4.8) k/uL PT (10.0-12.5) sec INR (<1.2) APTT 53.4 H (22.0-30.0) sec Sodium (137-145) mmol/L BUN (7-17) mg/dL Creatinine (0.52-1.04) mg/dL Glucose (74-99) mg/dL Total Protein (6.3-8.2) g/dL Albumin (3.5-5.0) g/dL HDL Cholesterol 66.10 H (40.00-60.00) mg/dL Urine Protein (Negative) Urine Blood (Negative) Urine WBC (0-5) /hpf Urine Mucus (None) /hpf 09/23/23 09/23/23 09/23/23 Range/Units 07:33 07:33 07:33 WBC (3.8-10.6) k/uL RBC (3.80-5.40) m/uL Hgb (11.4-16.0) gm/dL Hct (34.0-46.0) % RDW (11.5-15.5) % Neutrophils # (1.3-7.7) k/uL Lymphocytes # (1.0-4.8) k/uL PT 21.0 H (10.0-12.5) sec INR 2.1 H (<1.2) APTT 51.4 H (22.0-30.0) sec Sodium 135 L (137-145) mmol/L BUN 57 H (7-17) mg/dL Creatinine 1.85 H (0.52-1.04) mg/dL Glucose 175 H (74-99) mg/dL Total Protein 4.8 L (6.3-8.2) g/dL Albumin 2.8 L (3.5-5.0) g/dL HDL Cholesterol (40.00-60.00) mg/dL Urine Protein (Negative) Urine Blood (Negative) Urine WBC (0-5) /hpf Urine Mucus (None) /hpf 09/23/23 Range/Units 12:10 WBC (3.8-10.6) k/uL RBC (3.80-5.40) m/uL Hgb (11.4-16.0) gm/dL Hct (34.0-46.0) % RDW (11.5-15.5) % Neutrophils # (1.3-7.7) k/uL Lymphocytes # (1.0-4.8) k/uL PT (10.0-12.5) sec INR (<1.2) APTT (22.0-30.0) sec Sodium (137-145) mmol/L BUN (7-17) mg/dL Creatinine (0.52-1.04) mg/dL Glucose (74-99) mg/dL Total Protein (6.3-8.2) g/dL Albumin (3.5-5.0) g/dL HDL Cholesterol (40.00-60.00) mg/dL Urine Protein 2+ H (Negative) Urine Blood Trace H (Negative) Urine WBC 6 H (0-5) /hpf Urine Mucus Rare H (None) /hpf Microbiology - Last 24 Hours (Table) 09/21/23 14:20 Blood Culture - Preliminary Blood 09/21/23 14:05 Blood Culture - Preliminary Blood Assessment and Plan (1) Perforation of sigmoid colon due to diverticulitis Current Visit: Yes Status: Acute Code(s): K57.20 - DVTRCLI OF LG INT W PERFORATION AND ABSCESS W/O BLEEDING SNOMED Code(s): 8657257005808028 (2) Peritonitis Current Visit: Yes Status: Acute Code(s): K65.9 - PERITONITIS, UNSPECIFIED SNOMED Code(s): 35417042 (3) Leukocytosis Current Visit: No Status: Acute Code(s): D72.829 - ELEVATED WHITE BLOOD CELL COUNT, UNSPECIFIED SNOMED Code(s): 956652667 (4) Sepsis Current Visit: Yes Status: Acute Code(s): A41.9 - SEPSIS, UNSPECIFIED ORGANISM SNOMED Code(s): 00292764 Plan: 1patient with sepsis in this patient who did have a fever tachycardia meeting criteria for SIRS source is likely perforated diverticulitis with peritonitis and need to cover for the enteric gram-negative both aerobes and anaerobes patient also have complaint of increasing shortness of breath and cough CT shows bilateral lower lobe consolidation, possible pneumonia 2-await surgical evaluation possible surgical intervention, culture should be obtained intraoperatively to guide further antibiotic therapy 3-Zosyn 3.375 g every 8 hours should provide adequate antibiotic coverage at this point We will follow on clinical condition and cultures to further adjust medication if needed Thank you for this consultation we will follow the patient along with you Dictation was produced using [email or web address] dictation software. please excuse any grammatical, word or spelling errors. Time with Patient: Greater than 30
[2023-09-23 22:57] LABS: Glucose,Whole Blood 138 mg/dL (70-110)
[2023-09-24 06:00] LABS: Anisocytosis Slight; Basophils # (A) 0.1 k/uL (0-0.2); Basophils % (A) 0 %; Eosinophils % (A) 0 %; HCT 24.2 % (34.0-46.0); HGB 7.4 gm/dL (11.4-16.0); Hypochromasia Marked; Lymphocytes # (A) 0.4 k/uL (1.0-4.8); Lymphocytes % (A) 2 %; MCH 28.9 pg (25.0-35.0); MCHC 30.6 g/dL (31.0-37.0); MCV 94.3 fL (80.0-100.0); Macrocytosis Slight; Mean Platelet Volume 8.1; Monocytes # (A) 0.5 k/uL (0-1.0); Monocytes % (A) 3 %; Neutrophils # (A) 19.5 k/uL (1.3-7.7); Neutrophils % (A) 95 %; Platelet Count 280 k/uL (150-450); RBC 2.57 m/uL (3.80-5.40); RDW 19.9 % (11.5-15.5); WBC 20.5 k/uL (3.8-10.6)
[2023-09-24 06:09] LABS: African American GFR (CKD) 35 (>60 ml/min/1.73 sqM); Anion Gap 7 mmol/L; Blood Urea Nitrogen 55 mg/dL (7-17); Calcium 8.8 mg/dL (8.4-10.2); Carbon Dioxide 27 mmol/L (22-30); Chloride 102 mmol/L (98-107); Glucose 125 mg/dL (74-99); Magnesium 1.9 mg/dL (1.6-2.3); Non-African American GFR(CKD) 30 (>60 ml/min/1.73 sqM); Potassium 4.6 mmol/L (3.5-5.1); Sodium 136 mmol/L (137-145)
[2023-09-24] MEDS ORDERED: Magnesium Replacement Protocol 1 EACH MISC MISCELLANE PRN (06:11)
[2023-09-24] MEDS: MAGNESIUM SULFATE-D5W PMX 1 GM in DEXTROSE/WATER 1 100ML.BAG IVPB ONE (06:21)
[2023-09-24 06:31] LABS: INR 1.2 (<1.2)
[2023-09-24 06:39] LABS: Glucose,Whole Blood 148 mg/dL (70-110)
[2023-09-24] MEDS ORDERED: HYDROmorphone 0.5 MG/0.5 ML SYRINGE IVP PRN (07:00)
[2023-09-24] MEDS: ENOXAPARIN 30 MG/0.3 ML SYRINGE SQ SCH (09:06)
--- NOTE | 2023-09-24 09:35 | P.PN ---
Subjective Progress Note Date: 09/24/23 This is a 63-year-old female patient of Dr. Daniels who presented to the ER with concerns of increased shortness of breath. Patient was recently admitted at [facility] last week for similar symptoms but did leave AMA prior to completion of treatment. Patient was alsopatient was also recently admitted recently admitted and transferred to [facility] and transferred to [facility] due to diagnosis of vasculitis and required hemodialysis during the hospital stay patient also had episode of pulmonary embolism in which she was started on Coumadin. Patient recently had hemodialysis catheter DC'd.. Additional medical history includes COPD and ex-smoker. Chest x-ray completed in ER showing COPD with superimposed interstitial opacities possible interstitial pulmonary edema versus atypicalCOPD with superimposed interstitial bases possible interstitial pulmonary edema versus atypical pneumonitis. Lab work revealing BNP level 60,000.. [id number] 0.205, 0.403 and 0.521. Creatinine 1.56 bun 47. White blood cell 27.9 hemoglobin 10.5 . Patient was started on Zithromax and Rocephin. Given dose of IV Lasix. Started on heparin drip for elevated troponins. Cardiology pulmonary and nephrology services consulted. Cardiology pulmonary and nephrology service is consulted. Current vital signs Temp 97.3, heart rate 95, respiratory rate 18, blood pressure 143/88 with a pulse ox of 96% on 2 L. On 09/23/2023 patient was seen and examined on the medical floor she is alert and oriented x 3 in no apparent distress, she started complaining of severe abdominal pain in the bilateral lower quadrants this morning, otherwise she denies any complaints there is no fever or chills no headache or dizziness no chest pain no shortness of breath no cough no nausea or vomiting no diarrhea no blood in the stools no burning with urination no frequency or urgency and no hematuria, CT scan of the abdomen and pelvis without contrast was ordered, will follow closely On 09/24/2023 Patient's alert and oriented 3. Patient is status post diagnostic laparoscopy sigmoid colectomy with end colostomy secondary to perforated sigmoid diverticulitis. Patient is currently postop day 1. Patient was transferred to the intensive care unit postoperatively but has been extubated to 2 L. Patient remains on IV Zosyn. Vertical care, nephrology, surgical, infectious disease service is following. Patient denies chest pain or shortness breath. Patient denies nausea vomiting or diarrhea. Burning or frequency Objective - Vital Signs Vital signs: Vital Signs Temp 97.7 F 09/24/23 04:00 Pulse 101 H 09/24/23 09:02 Resp 14 09/24/23 08:48 BP 134/100 09/24/23 07:00 Pulse Ox 96 09/24/23 08:51 FiO2 35 09/21/23 20:21 Intake & Output 09/23/23 09/24/23 09/24/23 18:59 06:59 18:59 Intake Total 1446 875 Output Total 100 870 Balance 1346 5 Intake: IV 700 875 0.9 100 Lactated Ringers 1,000 ml 675 @ 75 mls/hr IV .[id number] [facility] Rx#:[id number] Piperacillin-Tazobactam 3 100 .375 gm In Sodium Chloride 0.9% 100 ml @ 25 mls/hr IVPB Q8HR [facility] Rx# :[id number] Oral 236 Blood Product 510 Ffp 24 Cpd Unit 284 [id number] Ffp 24 Pher Acda Cnt1 226 Unit [id number] Output: Drainage 95 SILVIO Abdomen 95 Urine 100 750 Estimated Blood Loss 25 Other: Voiding Method Indwelling Catheter - Exam Physical examHead normocephalic Neck supple Lungs diminished bilaterally Heart regular rate and rhythm S1-S2, no rub or gallop Abdomen is soft with mild diffuse tenderness especially in the pelvic area bilaterally no organomegaly no palpable masses Extremities no edema Neuro alert and orientated to 3 - Labs CBC & Chem 7: 09/24/23 05:28 09/24/23 05:28 Labs: Abnormal Lab Results - Last 24 Hours (Table) 09/23/23 09/23/23 09/23/23 Range/Units 07:33 12:10 22:56 WBC (3.8-10.6) k/uL RBC (3.80-5.40) m/uL Hgb (11.4-16.0) gm/dL Hct (34.0-46.0) % MCHC (31.0-37.0) g/dL RDW (11.5-15.5) % Neutrophils # (1.3-7.7) k/uL Lymphocytes # (1.0-4.8) k/uL PT (10.0-12.5) sec INR (<1.2) Sodium (137-145) mmol/L BUN (7-17) mg/dL Creatinine (0.52-1.04) mg/dL Glucose (74-99) mg/dL POC Glucose (mg/dL) 138 H (70-110) mg/dL Iron 31 L (50-170) UG/DL % Saturation 11.92 L (12.00-45.00) Transferrin 186.0 L (204.0-354.0) mg/dL Ferritin 1231.0 H (10.0-291.0) ng/mL Urine Protein 2+ H (Negative) Urine Blood Trace H (Negative) Urine WBC 6 H (0-5) /hpf Urine Mucus Rare H (None) /hpf 09/24/23 09/24/23 09/24/23 Range/Units 05:28 05:28 05:28 WBC 20.5 H (3.8-10.6) k/uL RBC 2.57 L (3.80-5.40) m/uL Hgb 7.4 L (11.4-16.0) gm/dL Hct 24.2 L (34.0-46.0) % MCHC 30.6 L (31.0-37.0) g/dL RDW 19.9 H (11.5-15.5) % Neutrophils # 19.5 H (1.3-7.7) k/uL Lymphocytes # 0.4 L (1.0-4.8) k/uL PT 13.0 H (10.0-12.5) sec INR 1.2 H (<1.2) Sodium 136 L (137-145) mmol/L BUN 55 H (7-17) mg/dL Creatinine 1.78 H (0.52-1.04) mg/dL Glucose 125 H (74-99) mg/dL POC Glucose (mg/dL) (70-110) mg/dL Iron (50-170) UG/DL % Saturation (12.00-45.00) Transferrin (204.0-354.0) mg/dL Ferritin (10.0-291.0) ng/mL Urine Protein (Negative) Urine Blood (Negative) Urine WBC (0-5) /hpf Urine Mucus (None) /hpf 09/24/23 Range/Units 06:37 WBC (3.8-10.6) k/uL RBC (3.80-5.40) m/uL Hgb (11.4-16.0) gm/dL Hct (34.0-46.0) % MCHC (31.0-37.0) g/dL RDW (11.5-15.5) % Neutrophils # (1.3-7.7) k/uL Lymphocytes # (1.0-4.8) k/uL PT (10.0-12.5) sec INR (<1.2) Sodium (137-145) mmol/L BUN (7-17) mg/dL Creatinine (0.52-1.04) mg/dL Glucose (74-99) mg/dL POC Glucose (mg/dL) 148 H (70-110) mg/dL Iron (50-170) UG/DL % Saturation (12.00-45.00) Transferrin (204.0-354.0) mg/dL Ferritin (10.0-291.0) ng/mL Urine Protein (Negative) Urine Blood (Negative) Urine WBC (0-5) /hpf Urine Mucus (None) /hpf Microbiology - Last 24 Hours (Table) 09/23/23 18:51 Gram Stain - Preliminary Other - Other 09/21/23 14:20 Blood Culture - Preliminary Blood 09/21/23 14:05 Blood Culture - Preliminary Blood Assessment and Plan Assessment: Acute hypoxic respiratory failure secondary to acute exacerbation of COPD and acute systolic congestive heart failure Acute exacerbation of COPD. Patient started on IV steroids Acute systolic congestive heart failure Perforated sigmoid diverticulitis status postS igmoid colectomy with end colostomy on Elevated troponins Acute on chronic kidney disease Recent diagnosis of vasculitis at [facility] Recent history of PE/DVT maintained on Coumadin History of cardiomyopathy with EF of 15 to 20% History of tobacco abuse recently quit DVT prophylaxis lovenox. GI prophylaxis Protonix Pulmonary, cardiology and nephrology services consulted Patient started on IV steroids and IV antibiotics The patient was transferred to the intensive care unit postoperatively
[2023-09-24] MEDS: CALCIUM CARB-VIT D 500 MG-5 MCG TAB PO SCH (10:19)
[2023-09-24] MEDS: FUROSEMIDE 20 MG TAB PO SCH (10:21)
[2023-09-24] MEDS: HYDROcodone/APAP 5-325MG 1 EACH TAB PO PRN (10:38)
--- NOTE | 2023-09-24 10:44 | P.PN ---
Subjective Patient is seen in follow-up for acute kidney injury. renal function stable. Denies chest pain. denies chest pain or shortness of breath. noted to have pneumoperitoneum and underwent sigmoid colectomy with end colostomy yesterday. Vital signs are stable. General: No acute distress. HEENT: Head exam is unremarkable. LUNGS: No audible rhonchi or wheezes. HEART: Rate and Rhythm are regular. ABDOMEN: colostomy noted. No drainage. EXTREMITITES: No edema. Objective - Vital Signs Vital signs: Vital Signs Temp 97.7 F 09/24/23 04:00 Pulse 84 09/24/23 10:00 Resp 10 L 09/24/23 10:00 BP 141/99 09/24/23 10:00 Pulse Ox 92 L 09/24/23 10:00 FiO2 35 09/21/23 20:21 Intake & Output 09/23/23 09/24/23 09/24/23 18:59 06:59 18:59 Intake Total 1446 875 525 Output Total 100 870 95 Balance 1346 5 430 Intake: IV 700 875 285 0.9 100 60 Lactated Ringers 1,000 ml 675 225 @ 75 mls/hr IV .[id number] [facility] Rx#:[id number] Piperacillin-Tazobactam 3 100 .375 gm In Sodium Chloride 0.9% 100 ml @ 25 mls/hr IVPB Q8HR [facility] Rx# :[id number] Oral 236 240 Blood Product 510 Ffp 24 Cpd Unit 284 [id number] Ffp 24 Pher Acda Cnt1 226 Unit [id number] Output: Drainage 95 SILVIO Abdomen 95 Urine 100 750 95 Estimated Blood Loss 25 Other: Voiding Method Indwelling Catheter - Labs CBC & Chem 7: 09/24/23 05:28 09/24/23 05:28 Labs: Abnormal Lab Results - Last 24 Hours (Table) 09/23/23 09/23/23 09/23/23 Range/Units 07:33 12:10 22:56 WBC (3.8-10.6) k/uL RBC (3.80-5.40) m/uL Hgb (11.4-16.0) gm/dL Hct (34.0-46.0) % MCHC (31.0-37.0) g/dL RDW (11.5-15.5) % Neutrophils # (1.3-7.7) k/uL Lymphocytes # (1.0-4.8) k/uL PT (10.0-12.5) sec INR (<1.2) Sodium (137-145) mmol/L BUN (7-17) mg/dL Creatinine (0.52-1.04) mg/dL Glucose (74-99) mg/dL POC Glucose (mg/dL) 138 H (70-110) mg/dL Iron 31 L (50-170) UG/DL % Saturation 11.92 L (12.00-45.00) Transferrin 186.0 L (204.0-354.0) mg/dL Ferritin 1231.0 H (10.0-291.0) ng/mL Urine Protein 2+ H (Negative) Urine Blood Trace H (Negative) Urine WBC 6 H (0-5) /hpf Urine Mucus Rare H (None) /hpf 09/24/23 09/24/23 09/24/23 Range/Units 05:28 05:28 05:28 WBC 20.5 H (3.8-10.6) k/uL RBC 2.57 L (3.80-5.40) m/uL Hgb 7.4 L (11.4-16.0) gm/dL Hct 24.2 L (34.0-46.0) % MCHC 30.6 L (31.0-37.0) g/dL RDW 19.9 H (11.5-15.5) % Neutrophils # 19.5 H (1.3-7.7) k/uL Lymphocytes # 0.4 L (1.0-4.8) k/uL PT 13.0 H (10.0-12.5) sec INR 1.2 H (<1.2) Sodium 136 L (137-145) mmol/L BUN 55 H (7-17) mg/dL Creatinine 1.78 H (0.52-1.04) mg/dL Glucose 125 H (74-99) mg/dL POC Glucose (mg/dL) (70-110) mg/dL Iron (50-170) UG/DL % Saturation (12.00-45.00) Transferrin (204.0-354.0) mg/dL Ferritin (10.0-291.0) ng/mL Urine Protein (Negative) Urine Blood (Negative) Urine WBC (0-5) /hpf Urine Mucus (None) /hpf 09/24/23 Range/Units 06:37 WBC (3.8-10.6) k/uL RBC (3.80-5.40) m/uL Hgb (11.4-16.0) gm/dL Hct (34.0-46.0) % MCHC (31.0-37.0) g/dL RDW (11.5-15.5) % Neutrophils # (1.3-7.7) k/uL Lymphocytes # (1.0-4.8) k/uL PT (10.0-12.5) sec INR (<1.2) Sodium (137-145) mmol/L BUN (7-17) mg/dL Creatinine (0.52-1.04) mg/dL Glucose (74-99) mg/dL POC Glucose (mg/dL) 148 H (70-110) mg/dL Iron (50-170) UG/DL % Saturation (12.00-45.00) Transferrin (204.0-354.0) mg/dL Ferritin (10.0-291.0) ng/mL Urine Protein (Negative) Urine Blood (Negative) Urine WBC (0-5) /hpf Urine Mucus (None) /hpf Microbiology - Last 24 Hours (Table) 09/23/23 18:51 Gram Stain - Preliminary Other - Other 09/21/23 14:20 Blood Culture - Preliminary Blood 09/21/23 14:05 Blood Culture - Preliminary Blood Assessment and Plan Plan: Assessment: 1. 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 Also component of cardiorenal syndrome. renal function stable. Creatinine was 1.9 dated September 06. Patient was hemodialysis dependent but was recently taken off hemodialysis. She still has permacath in place. Ultrasound from June 2023 showed no evidence of hydronephrosis. 2. ANCA vasculitis maintained on prednisone. Status post 2 doses of IV rituximab 1 g completed August 2023. Maintained on 30 mg of prednisone outpatient. 3. Acute on chronic systolic CHF ejection fraction of 25 to 30% with severe pulmonary hypertension and moderate tricuspid regurgitation. 4. Acute hypoxic respiratory failure secondary to COPD exacerbation as well as CHF. 5. History of PE maintained on anticoagulation. 6. Anemia. high ferritin noted. 7. No peritoneum status post diagnostic laparoscopy, sigmoid colectomy with end colostomy 09/23/2023. Plan: hold Lasix and farxiga today. Resume prednisone along with Bactrim upon discharge. Currently on IV Solu- Medrol and antibiotics. Will DC permacath this admission if renal function remains stable. Avoid nephrotoxins. Continue to monitor renal function and urine output. add Aranesp. Hold off on IV iron at this time. currently on clear liquid diet.
[2023-09-24] MEDS: DARBEPOETIN ALFA 40 MCG/0.4 ML SYRINGE SQ SCH (13:48)
--- NOTE | 2023-09-24 13:56 | P.PN ---
Subjective Progress Note Date: 09/24/23 CHIEF COMPLAINT: Perforated sigmoid diverticulitis HISTORY OF PRESENT ILLNESS: postop day 1 status post diagnostic laparoscopy with sigmoid colectomy and end colostomy. Patient is in the ICU. She is on room air. Her pain is controlled. She denies any nausea vomiting. SILVIO drain 95 mL serosanguineous output. Afebrile.WBC 20.5 HgB7.4 PHYSICAL EXAM: VITAL SIGNS: Reviewed. GENERAL: Well-developed in no acute distress. ABDOMEN: Soft. mildly distended. Surgical dressing clean dry and intact. Colostomy on the left with stoma pink. No output. NEUROLOGIC: Alert and oriented. Cranial nerves II through XII grossly intact. ASSESSMENT: 1. perforated sigmoid diverticulitis PLAN: -patient can be transferred out of the ICU -Continue clear liquid diet -Consult ostomy nurse for ostomy education -Continue pain management -continue IV fluids -GI prophylaxis Protonix and DVT prophylaxis Lovenox Physician Flight Surveyor note has been reviewed by physician. Signing provider agrees with the documented findings, assessment, and plan of care. I have personally seen and examined the patient, reviewed the MARKETING PROPOSAL SPECIALIST /PAs history, exam and MDM and agree with the assessment and plan as written. Based on total visit time, I have performed more than 50% of the visit. As above: Patient doing well today. Pain is improved. SILVIO drain serosanguineous. Ostomy is pink. Continue liquid diet. May transfer out of ICU. Objective - Vital Signs Vital signs: Vital Signs Temp 97.7 F 09/24/23 04:00 Pulse 90 09/24/23 12:01 Resp 18 09/24/23 11:38 BP 141/99 09/24/23 10:00 Pulse Ox 92 L 09/24/23 10:00 FiO2 35 09/21/23 20:21 Intake & Output 09/23/23 09/24/23 09/24/23 18:59 06:59 18:59 Intake Total 1446 875 525 Output Total 100 870 95 Balance 1346 5 430 Intake: IV 700 875 285 0.9 100 60 Lactated Ringers 1,000 ml 675 225 @ 75 mls/hr IV .[id number] [facility] Rx#:[id number] Piperacillin-Tazobactam 3 100 .375 gm In Sodium Chloride 0.9% 100 ml @ 25 mls/hr IVPB Q8HR [facility] Rx# :[id number] Oral 236 240 Blood Product 510 Ffp 24 Cpd Unit 284 [id number] Ffp 24 Pher Acda Cnt1 226 Unit [id number] Output: Drainage 95 SILVIO Abdomen 95 Urine 100 750 95 Estimated Blood Loss 25 Other: Voiding Method Indwelling Catheter - Labs CBC & Chem 7: 09/24/23 05:28 09/24/23 05:28 Labs: Abnormal Lab Results - Last 24 Hours (Table) 09/23/23 09/23/23 09/24/23 Range/Units 07:33 22:56 05:28 WBC (3.8-10.6) k/uL RBC (3.80-5.40) m/uL Hgb (11.4-16.0) gm/dL Hct (34.0-46.0) % MCHC (31.0-37.0) g/dL RDW (11.5-15.5) % Neutrophils # (1.3-7.7) k/uL Lymphocytes # (1.0-4.8) k/uL PT (10.0-12.5) sec INR (<1.2) Sodium 136 L (137-145) mmol/L BUN 55 H (7-17) mg/dL Creatinine 1.78 H (0.52-1.04) mg/dL Glucose 125 H (74-99) mg/dL POC Glucose (mg/dL) 138 H (70-110) mg/dL Iron 31 L (50-170) UG/DL % Saturation 11.92 L (12.00-45.00) Transferrin 186.0 L (204.0-354.0) mg/dL Ferritin 1231.0 H (10.0-291.0) ng/mL 09/24/23 09/24/23 09/24/23 Range/Units 05:28 05:28 06:37 WBC 20.5 H (3.8-10.6) k/uL RBC 2.57 L (3.80-5.40) m/uL Hgb 7.4 L (11.4-16.0) gm/dL Hct 24.2 L (34.0-46.0) % MCHC 30.6 L (31.0-37.0) g/dL RDW 19.9 H (11.5-15.5) % Neutrophils # 19.5 H (1.3-7.7) k/uL Lymphocytes # 0.4 L (1.0-4.8) k/uL PT 13.0 H (10.0-12.5) sec INR 1.2 H (<1.2) Sodium (137-145) mmol/L BUN (7-17) mg/dL Creatinine (0.52-1.04) mg/dL Glucose (74-99) mg/dL POC Glucose (mg/dL) 148 H (70-110) mg/dL Iron (50-170) UG/DL % Saturation (12.00-45.00) Transferrin (204.0-354.0) mg/dL Ferritin (10.0-291.0) ng/mL Microbiology - Last 24 Hours (Table) 09/23/23 18:51 Gram Stain - Preliminary Other - Other 09/21/23 14:20 Blood Culture - Preliminary Blood 09/21/23 14:05 Blood Culture - Preliminary Blood
--- NOTE | 2023-09-24 14:53 | P.PN ---
Subjective Progress Note Date: 09/24/23 Principal diagnosis: Reason for follow-up is perforated diverticulitis Patient is a 63-year-old female past medical history significant for COPD vasculitis history of acute kidney injury secondary to ANCA vasculitis presenting to the hospital with shortness of breath and abdominal pain has been diagnosed with a perforated sigmoid diverticulitis in this patient who is status post diagnostic laparoscopic sigmoid colectomy with end colostomy. On today's evaluation that is 09/24/2023, patient has been afebrile, patient is breathing comfortably and is currently on 2 L nasal cannula oxygen patient denies having any significant cough no chest pain shortness of breath, patient denies nausea vomiting abdominal pain has decreased in intensity and controlled with pain medication. Patient white count is down to 20.5 creatinine is 1.78 Objective - Vital Signs Vital signs: Vital Signs Temp 97.7 F 09/24/23 04:00 Pulse 90 09/24/23 12:01 Resp 18 09/24/23 11:38 BP 141/99 09/24/23 10:00 Pulse Ox 92 L 09/24/23 10:00 FiO2 35 09/21/23 20:21 Intake & Output 09/23/23 09/24/23 09/24/23 18:59 06:59 18:59 Intake Total 1446 875 525 Output Total 100 870 95 Balance 1346 5 430 Intake: IV 700 875 285 0.9 100 60 Lactated Ringers 1,000 ml 675 225 @ 75 mls/hr IV .[id number] [facility] Rx#:[id number] Piperacillin-Tazobactam 3 100 .375 gm In Sodium Chloride 0.9% 100 ml @ 25 mls/hr IVPB Q8HR [facility] Rx# :[id number] Oral 236 240 Blood Product 510 Ffp 24 Cpd Unit 284 [id number] Ffp 24 Pher Acda Cnt1 226 Unit [id number] Output: Drainage 95 SILVIO Abdomen 95 Urine 100 750 95 Estimated Blood Loss 25 Other: Voiding Method Indwelling Catheter - Exam GENERAL DESCRIPTION: Middle-aged female lying in bed in no distress RESPIRATORY SYSTEM: Unlabored breathing , decreased breath sounds at bases HEART: S1 S2 regular rate and rhythm , ABDOMEN: Soft , mild tenderness EXTREMITIES: No edema feet - Labs CBC & Chem 7: 09/24/23 05:28 09/24/23 05:28 Labs: Abnormal Lab Results - Last 24 Hours (Table) 09/23/23 09/23/23 09/24/23 Range/Units 07:33 22:56 05:28 WBC (3.8-10.6) k/uL RBC (3.80-5.40) m/uL Hgb (11.4-16.0) gm/dL Hct (34.0-46.0) % MCHC (31.0-37.0) g/dL RDW (11.5-15.5) % Neutrophils # (1.3-7.7) k/uL Lymphocytes # (1.0-4.8) k/uL PT (10.0-12.5) sec INR (<1.2) Sodium 136 L (137-145) mmol/L BUN 55 H (7-17) mg/dL Creatinine 1.78 H (0.52-1.04) mg/dL Glucose 125 H (74-99) mg/dL POC Glucose (mg/dL) 138 H (70-110) mg/dL Iron 31 L (50-170) UG/DL % Saturation 11.92 L (12.00-45.00) Transferrin 186.0 L (204.0-354.0) mg/dL Ferritin 1231.0 H (10.0-291.0) ng/mL 09/24/23 09/24/23 09/24/23 Range/Units 05:28 05:28 06:37 WBC 20.5 H (3.8-10.6) k/uL RBC 2.57 L (3.80-5.40) m/uL Hgb 7.4 L (11.4-16.0) gm/dL Hct 24.2 L (34.0-46.0) % MCHC 30.6 L (31.0-37.0) g/dL RDW 19.9 H (11.5-15.5) % Neutrophils # 19.5 H (1.3-7.7) k/uL Lymphocytes # 0.4 L (1.0-4.8) k/uL PT 13.0 H (10.0-12.5) sec INR 1.2 H (<1.2) Sodium (137-145) mmol/L BUN (7-17) mg/dL Creatinine (0.52-1.04) mg/dL Glucose (74-99) mg/dL POC Glucose (mg/dL) 148 H (70-110) mg/dL Iron (50-170) UG/DL % Saturation (12.00-45.00) Transferrin (204.0-354.0) mg/dL Ferritin (10.0-291.0) ng/mL Microbiology - Last 24 Hours (Table) 09/23/23 18:51 Gram Stain - Preliminary Other - Other 09/21/23 14:20 Blood Culture - Preliminary Blood 09/21/23 14:05 Blood Culture - Preliminary Blood Assessment and Plan (1) Perforation of sigmoid colon due to diverticulitis Current Visit: Yes Status: Acute Code(s): K57.20 - DVTRCLI OF LG INT W PERFORATION AND ABSCESS W/O BLEEDING SNOMED Code(s): 0599837597834660 (2) Peritonitis Current Visit: Yes Status: Acute Code(s): K65.9 - PERITONITIS, UNSPECIFIED SNOMED Code(s): 62687383 (3) Leukocytosis Current Visit: No Status: Acute Code(s): D72.829 - ELEVATED WHITE BLOOD CELL COUNT, UNSPECIFIED SNOMED Code(s): 863064690 (4) Sepsis Current Visit: Yes Status: Acute Code(s): A41.9 - SEPSIS, UNSPECIFIED ORGANISM SNOMED Code(s): 48577826 Plan: 1patient presented to the hospital with sepsis in this patient who did have a fever tachycardia meeting criteria for SIRS source is likely perforated diverticulitis with peritonitis and need to cover for the enteric gram-negative both aerobes and anaerobes patient also have complaint of increasing shortness of breath and cough CT shows bilateral lower lobe consolidation, possible pneumonia 2-patient is status post diagnostic laparoscopy sigmoid resection and end colostomy 3-patient to continue with Zosyn 3.375 g every 8 hours and monitor clinical course closely Dictation was produced using [employer] dictation software. please excuse any grammatical, word or spelling errors. Time with Patient: Less than 30
[2023-09-24] MEDS: methylPREDNISolone SOD SUCCI 40 MG/ML 1 ML VIAL IV SCH (17:50)
[2023-09-24] MEDS: guaiFENesin SYRUP 100MG/5ML 200 MG/10 ML CUP PO PRN (22:24)
[2023-09-25 01:10] LABS: Glucose,Whole Blood 143 mg/dL (70-110)
--- NOTE | 2023-09-25 05:31 | PN ---
PROGRESS NOTE DATE OF SERVICE: 09/24/2023 SUBJECTIVE: This is a 63-year-old female with a history of COPD. We initially saw her in consultation in the emergency department. When we saw her yesterday, the patient was complaining of left groin pain. She thought she might have a urinary tract infection. Her UA was normal. Rather, on CT scan, it appears that she had pneumoperitoneum, and probably bowel perforation. The patient went to the OR yesterday. She is postop day #1, status post exploratory laparotomy, perforated sigmoid diverticulitis, colectomy, and sigmoid colostomy. Dr. Alvarenga did the surgery. Again today postop day #1. Currently, she is on 2 L. Lactated Ringer's at 75 mL an hour, and Zosyn. LABORATORY DATA: Current labs include a white count 20.5, hemoglobin 7.4, hematocrit 24.2, and a platelet count of 280,000. Sodium 136, potassium 4.6, chloride 102, CO2 27, BUN 55, creatinine 1.78. Glucose is 148. Calcium is 8.8, magnesium 1.9. Microbiologic studies are currently negative. No chest x-ray. PHYSICAL EXAMINATION: VITAL SIGNS: Current vital signs include a temperature which is normal, heart rate which is 84, respiratory rate 10, blood pressure 141/99 with mean of 113, 2 L saturation 92%. She appears in no acute distress. She is complaining of pain at the surgical site. HEENT: Grossly unremarkable. NECK: Supple, full range of motion. No adenopathy or thyromegaly. Neck veins are flat. CARDIOVASCULAR: Reveals regular rhythm and rate. Heart rate 84 beats per minute. LUNGS: A few scattered rhonchi. No wheezes or crackles. ABDOMEN: Soft, but tender on palpation. No bowel sounds. EXTREMITIES: Intact. No cyanosis, clubbing, or edema. SKIN: Without rash. NEUROLOGIC: Examination is brief but nonfocal. ASSESSMENT: 1. Postoperative day #1 status post exploratory laparotomy for perforated sigmoid diverticulum, with a sigmoid colectomy and colostomy. 2. Acute hypoxemic respiratory failure secondary to COPD exacerbation and acute systolic congestive heart failure. 3. Acute left lower lobe pain with evidence of pneumoperitoneum, and sigmoid diverticulitis necessitating surgery. 4. Troponin leak. 5. Acute kidney injury. 6. Leukocytosis. 7. Severe cardiomyopathy with ejection fraction of 25%-30%. 8. History of chronic obstructive pulmonary disease. 9. Chronic tobacco dependence. 10.Questionable history of vasculitis on a previous admission in June of this year. 11.Acute kidney injury, requiring temporary hemodialysis. 12.History of PE/DVT. PLAN: The patient was able to get through surgery, and was extubated by Anesthesia. She is seen today in the intensive care unit, room 261. She continues on 2 L. She is getting LR at 75 mL an hour. She is on Zosyn. The Solu-Medrol has dropped down to 40 mg q.8 hours. Today as mentioned is postop day #1. We will continue to follow. Make recommendations on the way. We do recommend hourly use of incentive spirometry, as well as deep breathing, coughing, clearing of secretions. RHIANNON / ARTURON: [id number] /
[2023-09-25 06:04] LABS: Glucose,Whole Blood 132 mg/dL (70-110)
[2023-09-25 06:32] LABS: INR 1.2 (<1.2); Prothrombin Time 12.4 sec (10.0-12.5)
[2023-09-25 09:46] LABS: Basophils # (A) 0.04 X 10*3/uL (0.00-0.10); Basophils % (A) 0.2 %; Eosinophils # (A) 0 X 10*3/uL (0.04-0.35); Eosinophils % (A) 0 %; HCT 22.4 % (37.2-46.3); HGB 6.7 g/dL (12.0-15.0); Lymphocytes # (A) 0.36 X 10*3/uL (0.90-5.00); Lymphocytes % (A) 1.9 %; MCH 29.3 pg (27.0-32.0); MCHC 29.9 g/dL (32.0-37.0); MCV 97.8 FL (80.0-97.0); Mean Platelet Volume 11.4 FL (9.5-12.2); Monocytes # (A) 0.15 X 10*3/uL (0.20-1.00); Monocytes % (A) 0.8 %; NRBC Per 100 WBC 0.05 X 10*3/uL (0.00-0.01); Neutrophils % (A) 95.2 %; Platelet Count 235 X 10*3/uL (140-440); RBC 2.29 X 10*6/uL (4.10-5.20); RDW 20.2 % (11.5-14.5); WBC 19.11 X 10*3/uL (4.50-10.00)
[2023-09-25 09:51] LABS: ALT 25 U/L (8-44); AST 25 U/L (13-35); Albumin/Globulin Ratio 1.67 Ratio (1.60-3.17); Alkaline Phosphatase 75 U/L (41-126); BUN/Creat Ratio 21.42 Ratio (12.00-20.00); Blood Urea Nitrogen 51.4 mg/dL (9.0-27.0); Calcium 8.7 mg/dL (8.7-10.3); Carbon Dioxide 25.1 mmol/L (21.6-31.8); Chloride 98 mmol/L (96-109); Globulin 1.8 g/dL (1.6-3.3); Glucose 119 mg/dL (70-110); Potassium 5.3 mmol/L (3.5-5.5); Sodium 137 mmol/L (135-145); Total Bilirubin 0.2 mg/dL (0.3-1.2); Total Protein 4.8 g/dL (6.2-8.2)
--- NOTE | 2023-09-25 11:40 | P.PN ---
Subjective Progress Note Date: 09/25/23 This is a 63-year-old female patient of Dr. Daniels who presented to the ER with concerns of increased shortness of breath. Patient was recently admitted at [facility] last week for similar symptoms but did leave AMA prior to completion of treatment. Patient was alsopatient was also recently admitted recently admitted and transferred to [facility] and transferred to [facility] due to diagnosis of vasculitis and required hemodialysis during the hospital stay patient also had episode of pulmonary embolism in which she was started on Coumadin. Patient recently had hemodialysis catheter DC'd.. Additional medical history includes COPD and ex-smoker. Chest x-ray completed in ER showing COPD with superimposed interstitial opacities possible interstitial pulmonary edema versus atypicalCOPD with superimposed interstitial bases possible interstitial pulmonary edema versus atypical pneumonitis. Lab work revealing BNP level 60,000.. D2ettfrkvc 0.205, 0.403 and 0.521. Creatinine 1.56 bun 47. White blood cell 27.9 hemoglobin 10.5 . Patient was started on Zithromax and Rocephin. Given dose of IV Lasix. Started on heparin drip for elevated troponins. Cardiology pulmonary and nephrology services consulted. Cardiology pulmonary and nephrology service is consulted. Current vital signs Temp 97.3, heart rate 95, respiratory rate 18, blood pressure 143/88 with a pulse ox of 96% on 2 L. On 09/23/2023 patient was seen and examined on the medical floor she is alert and oriented x 3 in no apparent distress, she started complaining of severe abdominal pain in the bilateral lower quadrants this morning, otherwise she denies any complaints there is no fever or chills no headache or dizziness no chest pain no shortness of breath no cough no nausea or vomiting no diarrhea no blood in the stools no burning with urination no frequency or urgency and no hematuria, CT scan of the abdomen and pelvis without contrast was ordered, will follow closely On 09/24/2023 Patient's alert and oriented 3. Patient is status post diagnostic laparoscopy sigmoid colectomy with end colostomy secondary to perforated sigmoid diverticulitis. Patient is currently postop day 1. Patient was transferred to the intensive care unit postoperatively but has been extubated to 2 L. Patient remains on IV Zosyn. Vertical care, nephrology, surgical, infectious disease service is following. Patient denies chest pain or shortness breath. Patient denies nausea vomiting or diarrhea. Burning or frequency On 09/25/2023 patient was seen and examined on the medical floor, she is alert and oriented x 3 in no apparent distress, there is no fever or chills no headache or dizziness no chest pain no shortness of breath no cough no nausea or vomiting no abdominal pain no diarrhea and no urinary symptoms, patient was noticed by her nurse to have an equal pupils, patient denies any previous knowl edge of abnormal pupil size, CT scan of the brain and neurology consultation will be initiated, hemoglobin today is down to 6.7 and patient will be given 1 unit of red blood cells. Objective - Vital Signs Vital signs: Vital Signs Temp 98.2 F 09/25/23 06:47 Pulse 98 09/25/23 08:12 Resp 18 09/25/23 06:47 BP 136/81 09/25/23 06:47 Pulse Ox 93 L 09/25/23 06:47 FiO2 35 09/21/23 20:21 Intake & Output 09/24/23 09/25/23 09/25/23 18:59 06:59 18:59 Intake Total 1470 Output Total 405 300 Balance 1065 -300 Weight 64 kg Intake: IV 830 0.9 230 Lactated Ringers 1,000 ml 600 @ 75 mls/hr IV .[id number] [facility] Rx#:[id number] Oral 640 Output: Drainage 60 SILVIO Abdomen 60 Urine 345 300 Other: Voiding Method Indwelling Catheter Indwelling Catheter - Exam Physical examHead normocephalic Neck supple Lungs diminished bilaterally Heart regular rate and rhythm S1-S2, no rub or gallop Abdomen is soft with mild diffuse tenderness especially in the pelvic area bilaterally no organomegaly no palpable masses Extremities no edema Neuro alert and orientated to 3 - Labs CBC & Chem 7: 09/25/23 05:45 09/25/23 05:45 Labs: Abnormal Lab Results - Last 24 Hours (Table) 09/25/23 09/25/23 09/25/23 Range/Units 01:09 05:45 05:45 WBC 19.11 H (4.50-10.00) X 10*3/uL RBC 2.29 L (4.10-5.20) X 10*6/uL Hgb 6.7 A* (12.0-15.0) g/dL Hct 22.4 L (37.2-46.3) % MCV 97.8 H (80.0-97.0) FL MCHC 29.9 L (32.0-37.0) g/dL RDW 20.2 H (11.5-14.5) % Immature Gran # 0.36 H (0.00-0.04) X 10*3/uL Neutrophils # 18.20 H (1.80-7.70) X 10*3/uL Lymphocytes # 0.36 L (0.90-5.00) X 10*3/uL Monocytes # 0.15 L (0.20-1.00) X 10*3/uL Eosinophils # 0 L (0.04-0.35) X 10*3/uL NRBC/100 WBC Diff 0.05 H (0.00-0.01) X 10*3/uL INR 1.2 H (<1.2) Anion Gap (4.00-12.00) mmol/L BUN (9.0-27.0) mg/dL Creatinine (0.6-1.5) mg/dL Est GFR (CKD-EPI) (>=60) BUN/Creatinine Ratio (12.00-20.00) Ratio Glucose (70-110) mg/dL POC Glucose (mg/dL) 143 H (70-110) mg/dL Total Bilirubin (0.3-1.2) mg/dL Total Protein (6.2-8.2) g/dL Albumin (3.8-4.9) g/dL 09/25/23 09/25/23 Range/Units 05:45 06:02 WBC (4.50-10.00) X 10*3/uL RBC (4.10-5.20) X 10*6/uL Hgb (12.0-15.0) g/dL Hct (37.2-46.3) % MCV (80.0-97.0) FL MCHC (32.0-37.0) g/dL RDW (11.5-14.5) % Immature Gran # (0.00-0.04) X 10*3/uL Neutrophils # (1.80-7.70) X 10*3/uL Lymphocytes # (0.90-5.00) X 10*3/uL Monocytes # (0.20-1.00) X 10*3/uL Eosinophils # (0.04-0.35) X 10*3/uL NRBC/100 WBC Diff (0.00-0.01) X 10*3/uL INR (<1.2) Anion Gap 13.90 H (4.00-12.00) mmol/L BUN 51.4 H (9.0-27.0) mg/dL Creatinine 2.4 H (0.6-1.5) mg/dL Est GFR (CKD-EPI) 22 L (>=60) BUN/Creatinine Ratio 21.42 H (12.00-20.00) Ratio Glucose 119 H (70-110) mg/dL POC Glucose (mg/dL) 132 H (70-110) mg/dL Total Bilirubin 0.2 L (0.3-1.2) mg/dL Total Protein 4.8 L (6.2-8.2) g/dL Albumin 3.0 L (3.8-4.9) g/dL Microbiology - Last 24 Hours (Table) 09/23/23 18:51 Gram Stain - Preliminary Other - Other Wound Culture - Preliminary Enterococcus faecium Enterococcus faecalis 09/21/23 14:20 Blood Culture - Preliminary Blood 09/21/23 14:05 Blood Culture - Preliminary Blood Assessment and Plan Assessment: Acute hypoxic respiratory failure secondary to acute exacerbation of COPD and acute systolic congestive heart failure Acute exacerbation of COPD. Patient started on IV steroids Acute systolic congestive heart failure Perforated sigmoid diverticulitis status postS igmoid colectomy with end colostomy on Elevated troponins Acute on chronic kidney disease Recent diagnosis of vasculitis at [facility] Recent history of PE/DVT maintained on Coumadin History of cardiomyopathy with EF of 15 to 20% History of tobacco abuse recently quit DVT prophylaxis lovenox. GI prophylaxis Protonix Pulmonary, cardiology and nephrology services consulted Patient started on IV steroids and IV antibiotics The patient was transferred to the intensive care unit postoperatively
--- NOTE | 2023-09-25 12:53 | P.PN ---
Subjective Progress Note Date: 09/25/23 Principal diagnosis: Shortness of breath. This is a 63-year-old female patient with a known history of chronic obstructive pulmonary disease, former smoker, previous acute kidney injury requiring dialysis that she completed approximately 2 weeks ago. She presented here to the emergency room today with increasing shortness of breath. Symptoms started just this morning. No fever or chills. No cough or congestion. Mainly dyspnea on minimal exertion. Chest x-ray reveals evidence of COPD with superimposed interstitial opacities, possible pulmonary edema versus atypical pneumonia. White count 27.9. Hemoglobin 10.5. Platelets 294. INR 1.3. Sodium 136. Potassium 4.3. Bicarb 30. BUN 47. Creatinine 1.56. Glucose 196. Troponin 0.205. proBNP 60,000. The patient is seen in consultation in the emergency department. She is currently sitting up on the stretcher. Awake and alert. On BiPAP 14/5 and 40% FiO2 to maintain O2 saturations in the 90s. Been initiated o n a heparin drip. Initiated on antibiotics, bronchodilators and steroids. The patient is seen today September 22, 2023 in follow-up in the emergency department. She is awake and alert in no acute distress. Breathing easier today compared to yesterday. She is maintaining good O2 saturations in the 90s on 2 L/min per nasal cannula. She has been off the BiPAP. She remains on a heparin drip. Peak troponin 0.521. She is continued on DuoNeb inhalations, Symbicort, Solu-Medrol. She is continued on ceftriaxone. Chest x-ray shows diffuse interstitial opacities with slight improvement. Progress note dated September 23, 2023. 63-year-old female with a history of underlying COPD. The patient was initially seen in the emergency department, 2 days ago, with a COPD exacerbation. Initially, the patient had mental status changes, and she was not particularly alert, and required BiPAP. Currently, she is doing much better. She is currently on 2 L. She did not use the BiPAP last night. She is complaining of left groin pain, and thinks that she may have a bladder infection. The urinalysis call, culture and sensitivity have been ordered. From the pulmonary standpoint, she is improved. Current labs include a white count 23.1, hemoglobin 8.4, hematocrit 26.3, and platelet count 294,000. PT 21, INR 2.1, PTT 51.4. Sodium 135, potassium 3.9, chloride 99, CO2 26, BUN 57, creatinine 1.85. Urine is colorless and clear. There is 2+ protein. Trace ketones. Nitrite was negative. LE was negative. There is only 6 WBCs, no bacteria. CT of the abdomen and pelvis shows evidence of pneumoperitoneum with findings of sigmoid diverticulitis. Progress note dated September 25, 2023. 63-year-old female with history of COPD. She presented to the emergency department with a COPD exacerbation. More recently, the patient was complaining of left groin pain, a CT scan was done which showed pneumoperitoneum, and bowel perforation. She is postop day #2, status post exploratory laparotomy, for perf orated sigmoid diverticulitis, with a colectomy and sigmoid colostomy. She is currently doing much better. She is on 2 L of oxygen. Saturations are 98%. Current labs include a white count of 19.1, hemoglobin 6.7, hematocrit 22.4, and a platelet count of 235,000. Sodium 137, potassium 5.3, chlorides 98, CO2 25, BUN 51, and creatinine 2.4. Glucose is 132. The patient's wound culture shows evidence of Enterococcus faefium and Enterococcus faecalis. Therapies are currently pending. No recent chest x-ray. The patient is currently on Zosyn. Objective - Vital Signs Vital signs: Vital Signs Temp 98.2 F 09/25/23 06:47 Pulse 92 09/25/23 12:07 Resp 18 09/25/23 06:47 BP 136/81 09/25/23 06:47 Pulse Ox 93 L 09/25/23 06:47 FiO2 35 09/21/23 20:21 Intake & Output 09/24/23 09/25/23 09/25/23 18:59 06:59 18:59 Intake Total 1470 Output Total 405 300 Balance 1065 -300 Weight 64 kg Intake: IV 830 0.9 230 Lactated Ringers 1,000 ml 600 @ 75 mls/hr IV .[id number] [facility] Rx#:[id number] Oral 640 Output: Drainage 60 SILVIO Abdomen 60 Urine 345 300 Other: Voiding Method Indwelling Catheter Indwelling Catheter Indwelling Catheter - Exam No acute distress, oriented 3. She is currently on 2 L. HEENT examination is grossly unremarkable. Mucous membranes are moist. No oral lesions. Neck supple. Full range of motion. No adenopathy thyromegaly or neck vein dist ention. Cardiovascular examination reveals regular rhythm rate. S1-S2 normal. No S3 or S4. No discernible murmur noted. Heart rate 92 bpm. Lungs reveal mostly clear breath sounds. Breath sounds are improved. There is scattered rhonchi noted. No wheezes or crackles. Abdomen soft bowel sounds are heard. No masses or tenderness. Incision is clean and dry. Colostomy is noted. Extremities are intact. No cyanosis clubbing or edema. Skin is without rash or lesion. Neurologic examination is brief but nonfocal. - Labs CBC & Chem 7: 09/25/23 05:45 09/25/23 05:45 Labs: Abnormal Lab Results - Last 24 Hours (Table) 09/23/23 09/25/23 09/25/23 Range/Units 14:46 01:09 05:45 WBC (4.50-10.00) X 10*3/uL RBC (4.10-5.20) X 10*6/uL Hgb (12.0-15.0) g/dL Hct (37.2-46.3) % MCV (80.0-97.0) FL MCHC (32.0-37.0) g/dL RDW (11.5-14.5) % Immature Gran # (0.00-0.04) X 10*3/uL Neutrophils # (1.80-7.70) X 10*3/uL Lymphocytes # (0.90-5.00) X 10*3/uL Monocytes # (0.20-1.00) X 10*3/uL Eosinophils # (0.04-0.35) X 10*3/uL NRBC/100 WBC Diff (0.00-0.01) X 10*3/uL INR 1.2 H (<1.2) Anion Gap (4.00-12.00) mmol/L BUN (9.0-27.0) mg/dL Creatinine (0.6-1.5) mg/dL Est GFR (CKD-EPI) (>=60) BUN/Creatinine Ratio (12.00-20.00) Ratio Glucose (70-110) mg/dL POC Glucose (mg/dL) 143 H (70-110) mg/dL Total Bilirubin (0.3-1.2) mg/dL Total Protein (6.2-8.2) g/dL Albumin (3.8-4.9) g/dL Crossmatch See Detail 09/25/23 09/25/23 09/25/23 Range/Units 05:45 05:45 06:02 WBC 19.11 H (4.50-10.00) X 10*3/uL RBC 2.29 L (4.10-5.20) X 10*6/uL Hgb 6.7 A* (12.0-15.0) g/dL Hct 22.4 L (37.2-46.3) % MCV 97.8 H (80.0-97.0) FL MCHC 29.9 L (32.0-37.0) g/dL RDW 20.2 H (11.5-14.5) % Immature Gran # 0.36 H (0.00-0.04) X 10*3/uL Neutrophils # 18.20 H (1.80-7.70) X 10*3/uL Lymphocytes # 0.36 L (0.90-5.00) X 10*3/uL Monocytes # 0.15 L (0.20-1.00) X 10*3/uL Eosinophils # 0 L (0.04-0.35) X 10*3/uL NRBC/100 WBC Diff 0.05 H (0.00-0.01) X 10*3/uL INR (<1.2) Anion Gap 13.90 H (4.00-12.00) mmol/L BUN 51.4 H (9.0-27.0) mg/dL Creatinine 2.4 H (0.6-1.5) mg/dL Est GFR (CKD-EPI) 22 L (>=60) BUN/Creatinine Ratio 21.42 H (12.00-20.00) Ratio Glucose 119 H (70-110) mg/dL POC Glucose (mg/dL) 132 H (70-110) mg/dL Total Bilirubin 0.2 L (0.3-1.2) mg/dL Total Protein 4.8 L (6.2-8.2) g/dL Albumin 3.0 L (3.8-4.9) g/dL Crossmatch Microbiology - Last 24 Hours (Table) 09/23/23 18:51 Gram Stain - Preliminary Other - Other Wound Culture - Preliminary Enterococcus faecium Enterococcus faecalis 09/21/23 14:20 Blood Culture - Preliminary Blood 09/21/23 14:05 Blood Culture - Preliminary Blood Assessment and Plan Assessment: Acute hypoxemic respiratory failure secondary to an acute exacerbation of chronic obstructive pulmonary disease, acute systolic congestive heart failure. Postop day #2, status post exploratory laparotomy, sigmoid colectomy, and sigmoid colostomy, for ruptured sigmoid diverticulum. Acute left lower quadrant pain, with evidence of pneumoperitoneum, and sigmoid diverticulitis. Troponin leak. Acute kidney injury. Leukocytosis. Severe cardiomyopathy with an ejection fraction of 25-30 %. History of chronic obstructive pulmonary disease. Chronic tobacco dependence. Question of vasculitis and was to have had a kidney biopsy in June 2023. Acute kidney injury requiring temporary hemodialysis, states completed 2 weeks ago. History of PE/DVT, on warfarin subtherapeutic INR at 1.3. Plan: Plan dated September 23, 2023. The patient certainly doing much better from the pulmonary standpoint. Unfortunately, she complained of acute left lower quadrant/groin pain and we ordered a urinalysis which was clear. A CT scan of the abdomen and pelvis reveals evidence of pneumoperitoneum, with evidence of sigmoid diverticulitis. Surgery obviously should be consulted. Labs, x-rays and medications are reviewed. The patient is a no code patient. Plan dated September 25, 2023. The patient was seen in room 452. The patient is actually doing very well. She is on 2 L. Vital signs are stable. Patient continues on Zosyn. She is postoperative day #2. We encourage deep breathing, coughing, clearing of secretions. In addition, we recommend hourly use of the incentive spirometer. The rest of the labs and medications are appropriate. We will continue to follow. No additional recommendations are made at this time. Time with Patient: Less than 30
--- NOTE | 2023-09-25 13:18 | P.PN ---
Subjective Progress Note Date: 09/25/23 Patient is seen in follow-up for acute kidney injury. renal function stable. Denies chest pain. denies chest pain or shortness of breath. Vital signs are stable. General: No acute distress. HEENT: Head exam is unremarkable. LUNGS: No audible rhonchi or wheezes. HEART: Rate and Rhythm are regular. ABDOMEN: colostomy noted. No drainage. EXTREMITITES: No edema. Objective - Vital Signs Vital signs: Vital Signs Temp 98.2 F 09/25/23 06:47 Pulse 92 09/25/23 12:07 Resp 18 09/25/23 06:47 BP 136/81 09/25/23 06:47 Pulse Ox 93 L 09/25/23 06:47 FiO2 35 09/21/23 20:21 Intake & Output 09/24/23 09/25/23 09/25/23 18:59 06:59 18:59 Intake Total 1470 Output Total 405 300 Balance 1065 -300 Weight 64 kg Intake: IV 830 0.9 230 Lactated Ringers 1,000 ml 600 @ 75 mls/hr IV .[id number] [facility] Rx#:[id number] Oral 640 Output: Drainage 60 SILVIO Abdomen 60 Urine 345 300 Other: Voiding Method Indwelling Catheter Indwelling Catheter Indwelling Catheter - Labs CBC & Chem 7: 09/25/23 05:45 09/25/23 05:45 Labs: Abnormal Lab Results - Last 24 Hours (Table) 09/23/23 09/25/23 09/25/23 Range/Units 14:46 01:09 05:45 WBC (4.50-10.00) X 10*3/uL RBC (4.10-5.20) X 10*6/uL Hgb (12.0-15.0) g/dL Hct (37.2-46.3) % MCV (80.0-97.0) FL MCHC (32.0-37.0) g/dL RDW (11.5-14.5) % Immature Gran # (0.00-0.04) X 10*3/uL Neutrophils # (1.80-7.70) X 10*3/uL Lymphocytes # (0.90-5.00) X 10*3/uL Monocytes # (0.20-1.00) X 10*3/uL Eosinophils # (0.04-0.35) X 10*3/uL NRBC/100 WBC Diff (0.00-0.01) X 10*3/uL INR 1.2 H (<1.2) Anion Gap (4.00-12.00) mmol/L BUN (9.0-27.0) mg/dL Creatinine (0.6-1.5) mg/dL Est GFR (CKD-EPI) (>=60) BUN/Creatinine Ratio (12.00-20.00) Ratio Glucose (70-110) mg/dL POC Glucose (mg/dL) 143 H (70-110) mg/dL Total Bilirubin (0.3-1.2) mg/dL Total Protein (6.2-8.2) g/dL Albumin (3.8-4.9) g/dL Crossmatch See Detail 09/25/23 09/25/23 09/25/23 Range/Units 05:45 05:45 06:02 WBC 19.11 H (4.50-10.00) X 10*3/uL RBC 2.29 L (4.10-5.20) X 10*6/uL Hgb 6.7 A* (12.0-15.0) g/dL Hct 22.4 L (37.2-46.3) % MCV 97.8 H (80.0-97.0) FL MCHC 29.9 L (32.0-37.0) g/dL RDW 20.2 H (11.5-14.5) % Immature Gran # 0.36 H (0.00-0.04) X 10*3/uL Neutrophils # 18.20 H (1.80-7.70) X 10*3/uL Lymphocytes # 0.36 L (0.90-5.00) X 10*3/uL Monocytes # 0.15 L (0.20-1.00) X 10*3/uL Eosinophils # 0 L (0.04-0.35) X 10*3/uL NRBC/100 WBC Diff 0.05 H (0.00-0.01) X 10*3/uL INR (<1.2) Anion Gap 13.90 H (4.00-12.00) mmol/L BUN 51.4 H (9.0-27.0) mg/dL Creatinine 2.4 H (0.6-1.5) mg/dL Est GFR (CKD-EPI) 22 L (>=60) BUN/Creatinine Ratio 21.42 H (12.00-20.00) Ratio Glucose 119 H (70-110) mg/dL POC Glucose (mg/dL) 132 H (70-110) mg/dL Total Bilirubin 0.2 L (0.3-1.2) mg/dL Total Protein 4.8 L (6.2-8.2) g/dL Albumin 3.0 L (3.8-4.9) g/dL Crossmatch Microbiology - Last 24 Hours (Table) 09/23/23 18:51 Gram Stain - Preliminary Other - Other Wound Culture - Preliminary Enterococcus faecium Enterococcus faecalis 09/21/23 14:20 Blood Culture - Preliminary Blood 09/21/23 14:05 Blood Culture - Preliminary Blood Assessment and Plan Assessment: 1. 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 Also component of cardio renal syndrome. renal function stable. Creatinine was 1.9 dated September 07, 2023. Patient was hemodialysis dependent but was recently taken off hemodialysis. She still has permacath in place. Ultrasound from June 2023 showed no evidence of hydronephrosis. Creatinine elevated today 2.4 likely related to anemia. 2. ANCA vasculitis maintained on prednisone. Status post 2 doses of IV rituximab 1 g completed August 2023. Maintained on 30 mg of prednisone outpatient. 3. Acute on chronic systolic CHF ejection fraction of 25 to 30% with severe pulmonary hypertension and moderate tricuspid regurgitation. 4. Acute hypoxic respiratory failure secondary to COPD exacerbation as well as CHF. 5. History of PE maintained on anticoagulation. 6. Anemia. high ferritin noted. 7. No peritoneum status post diagnostic laparoscopy, sigmoid colectomy with end colostomy 09/23/2023. Plan: Discontinue Lasix for now. Continue Farxiga. Resume prednisone along with Bactrim upon discharge. Currently on IV Solu- Medrol and antibiotics. Will DC permacath this admission if renal function remains stable on Wednesday. Continue to monitor renal function and urine output. Hold off on IV iron at this time. currently on clear liquid diet. Transfuse for Hb <7.0
--- NOTE | 2023-09-25 13:19 | P.CNNES ---
History of Present Illness Consult date: 09/25/23 Requesting physician: Franklin Marrero Reason for Consult: unequal pupils History of Present Illness: This is a 63-year-old woman with history of vasculitis and according to her that led to her kidney issues since June 2023, cardiac issue as well as her weakness and had dialysis as a result, pulmonary embolism, DVT on Coumadin, COPD who presents to the emergency department with a shortness of breath. During this hospital visit patient found to have perforated sigmoid diverticulitis and had diagnostic laparoscopically with sigmoid colectomy and end colostomy on 09/23/2023. This admission she was found to have unequal pupils left more than the right according to the nurse that it was felt she had it while in the ICU and neurology is consulted as a result today. According to the patient she denies any headache, any difficulty swallowing a difficulty getting her words out. Denies any visual disturbance. She is not aware that her pupils are unequal. She stated that she was severely weak as a result of her vasculitis and significant weakness in her lower extremity but is improving and currently is able to walk with a walker. She denies any numbness. Denies any weakness in the upper extremity that she appreciates. Denies any history of stroke. Is that she was on dialysis but her kidneys is improving. Again as stated above she stated that she was found to have recent vasculitis that led to her kidney issues cardiac issues and weakness in the legs. She was also found to have pulmonary embolism while she was hospitalized at [facility]. Some of the workup during this hospital visit consisted of: White blood cell on presentation is 27,000 and is trending down. Hemoglobin is 6.7 and is trending down Most recent creatinine is 2.4. It is drastically better compared to 06/29/2023. Per recent TSH on 07/05/2023 is 3.73 which is normal Also her CK level on 06/29/2023 is 24. Review of Systems The positive and negative as per HPI. Past Medical History Past Medical History: COPD, Dialysis Additional Past Medical History / Comment(s): ANCA vasculitis, dialysis-recently discontinued History of Any Multi-Drug Resistant Organisms: None Reported Additional Past Surgical History / Comment(s): dialysis port inserted Past Psychological History: No Psychological Hx Reported Smoking Status: Former smoker Past Alcohol Use History: Unable to Obtain Past Drug Use History: Unable to Obtain Medications and Allergies Home Medications Medication Instructions Recorded Confirmed Type Albuterol Sulfate [Ventolin HFA] 1 - 2 puff INHALATION RT-Q4H PRN 06/29/23 09/21/23 History Cholecalciferol [Vitamin D3 (25 25 mcg PO DAILY 06/29/23 09/21/23 History Mcg = 1000 Iu)] Fluticasone/Umeclidin/Vilanter 1 puff INHALATION RT-DAILY 06/29/23 09/21/23 History [Trelegy Ellipta 200-62.5-25] Furosemide [Lasix] 80 mg PO DAILY 08/26/23 09/21/23 History Isosorbide Dinitrate [Isordil] 10 mg PO DAILY 08/26/23 09/21/23 History Pantoprazole [Protonix] 40 mg PO DAILY 08/26/23 09/21/23 History Sulfamethox-Tmp 800-160Mg [Bactrim 2 tab PO DIRECTED 08/26/23 09/21/23 History DS 800-160 mg] Warfarin [Coumadin] 2.5 mg PO DAILY 08/26/23 09/21/23 History carvediloL [Coreg] 6.25 mg PO BID 08/26/23 09/21/23 History guaiFENesin [guaiFENesin Oral 200 mg PO Q4H PRN 08/26/23 09/21/23 History Solution] predniSONE [Deltasone] 60 mg PO DAILY 08/26/23 09/21/23 History Atorvastatin [Lipitor] 40 mg PO DAILY 09/21/23 09/21/23 History Ondansetron Odt [Zofran Odt] 4 mg PO Q6H PRN 09/21/23 09/21/23 History Oyster Shell Calcium 500 mg PO DAILY 09/21/23 09/21/23 History Potassium Chloride [Potassium 20 meq PO BID 09/21/23 09/21/23 History Chloride ER (K-Dur GEQ)] Allergies Allergy/AdvReac Type Severity Reaction Status Date / Time No Known Allergies Allergy Verified 09/21/23 16:39 Physical Examination - Vital Signs Vital Signs: Vital Signs Temp Pulse Pulse Pulse Resp BP BP 09/25/23 12:07 92 09/25/23 11:56 90 09/25/23 08:12 98 09/25/23 07:53 96 09/25/23 06:47 98.2 F 95 18 136/81 09/25/23 06:29 100 130/79 09/25/23 02:29 98.0 F 89 18 131/80 09/24/23 21:02 98 09/24/23 20:54 96 09/24/23 18:59 97.8 F 93 18 147/84 09/24/23 17:00 95 22 150/106 09/24/23 16:52 100 09/24/23 16:38 96 09/24/23 16:00 86 13 137/99 09/24/23 15:00 82 11 L 130/93 09/24/23 14:00 97 26 H 138/91 09/24/23 13:00 100 15 135/96 Pulse Ox 09/25/23 12:07 09/25/23 11:56 09/25/23 08:12 09/25/23 07:53 09/25/23 06:47 93 L 09/25/23 06:29 93 L 09/25/23 02:29 95 09/24/23 21:02 09/24/23 20:54 09/24/23 18:59 92 L 09/24/23 17:00 95 09/24/23 16:52 09/24/23 16:38 09/24/23 16:00 96 09/24/23 15:00 97 09/24/23 14:00 95 09/24/23 13:00 95 Intake and Output 09/24/23 09/25/23 09/25/23 22:59 06:59 14:59 Intake Total 415 Output Total 210 300 Balance 205 -300 Intake: IV 175 0.9 100 Lactated Ringers 1,000 ml 75 @ 75 mls/hr IV .[id number] [facility] Rx#:[id number] Oral 240 Output: Drainage 60 SILVIO Abdomen 60 Urine 150 300 Other: Voiding Method Indwelling Catheter Indwelling Catheter Weight 64 kg GENERAL: The patient is lying in bed and is not in acute distress. Integumentary: Bruises on upper extremities. NEUROLOGICAL: Higher mental function: The patient is awake, alert, oriented to self, place and time. Patient is following commands. No aphasia and no neglect. Cranial nerves: The pupils are round, right is 3mm and left is 4mm and reactive to light and accommodation. Visual gomez are full to confrontation throughout. Extraocular movement is intact no nystagmus is noted. Facial sensation is normal to touch throughout. The facial strength is normal throughout. Hearing is normal bilaterally to hand rub. Tongue is midline and moved [id number] without any difficulty. No dysarthria is noted. Shoulder shrug is normal bi laterally. Motor: The strength is bilateral proximal flexion is 4+ while extension is 5-, forearm extension is 4+ while extension is 5-. Lowers proximal is 3, knees are 2 while ankles are 4+. Mild decrease tone in lowers. Normal bulk. Cerebellum: Normal finger to nose bilaterally. Unable to assess lowers because of weakness. Sensation: Sensation is normal to touch throughout. Reflexes (right/left): Biceps 2+/2+; triceps1+/1+; brachioradialis 1+/1+; patellar 0-1+/0-1+; ankles 0-1+/0-1+. Plantars are mute bilaterally. Results - Laboratory Findings CBC and BMP: 09/25/23 05:45 09/25/23 05:45 Abnormal Lab Findings: Abnormal Labs 09/21/23 09/21/23 09/21/23 13:50 13:50 13:50 WBC 27.9 H RBC 3.51 L Hgb 10.5 L Hct 33.8 L MCV MCHC RDW 19.8 H Immature Gran # Neutrophils # Neutrophils # (Manual) 20.09 H Lymphocytes # Lymphocytes # (Manual) 5.86 H Monocytes # Eosinophils # Metamyelocytes # (Man) 1.12 H Myelocytes # (Manual) 0.28 H NRBC/100 WBC Diff PT 13.4 H INR 1.3 H APTT Sodium 136 L Anion Gap BUN 47 H Creatinine 1.56 H Est GFR (CKD-EPI) BUN/Creatinine Ratio Glucose 196 H POC Glucose (mg/dL) Iron % Saturation Transferrin Ferritin Total Bilirubin Troponin I Total Protein 5.5 L Albumin 3.3 L HDL Cholesterol Urine Protein Urine Blood Urine WBC Urine Mucus Crossmatch 09/21/23 09/21/23 09/21/23 13:50 16:15 18:57 WBC RBC Hgb Hct MCV MCHC RDW Immature Gran # Neutrophils # Neutrophils # (Manual) Lymphocytes # Lymphocytes # (Manual) Monocytes # Eosinophils # Metamyelocytes # (Man) Myelocytes # (Manual) NRBC/100 WBC Diff PT INR APTT Sodium Anion Gap BUN Creatinine Est GFR (CKD-EPI) BUN/Creatinine Ratio Glucose POC Glucose (mg/dL) Iron % Saturation Transferrin Ferritin Total Bilirubin Troponin I 0.205 H* 0.403 H* 0.521 H* Total Protein Albumin HDL Cholesterol Urine Protein Urine Blood Urine WBC Urine Mucus Crossmatch 09/21/23 09/22/23 09/22/23 22:00 07:17 07:17 WBC RBC Hgb Hct MCV MCHC RDW Immature Gran # Neutrophils # Neutrophils # (Manual) Lymphocytes # Lymphocytes # (Manual) Monocytes # Eosinophils # Metamyelocytes # (Man) Myelocytes # (Manual) NRBC/100 WBC Diff PT INR APTT 132.4 H* 72.6 H Sodium Anion Gap BUN Creatinine Est GFR (CKD-EPI) BUN/Creatinine Ratio Glucose POC Glucose (mg/dL) Iron % Saturation Transferrin Ferritin Total Bilirubin Troponin I Total Protein Albumin HDL Cholesterol 66.10 H Urine Protein Urine Blood Urine WBC Urine Mucus Crossmatch 09/22/23 09/23/23 09/23/23 16:32 07:33 07:33 WBC 23.1 H RBC 2.83 L Hgb 8.4 L D Hct 26.3 L MCV MCHC RDW 19.7 H Immature Gran # Neutrophils # 21.5 H Neutrophils # (Manual) Lymphocytes # 0.8 L Lymphocytes # (Manual) Monocytes # Eosinophils # Metamyelocytes # (Man) Myelocytes # (Manual) NRBC/100 WBC Diff PT INR APTT 53.4 H Sodium 135 L Anion Gap BUN 57 H Creatinine 1.85 H Est GFR (CKD-EPI) BUN/Creatinine Ratio Glucose 175 H POC Glucose (mg/dL) Iron % Saturation Transferrin Ferritin Total Bilirubin Troponin I Total Protein 4.8 L Albumin 2.8 L HDL Cholesterol Urine Protein Urine Blood Urine WBC Urine Mucus Crossmatch 09/23/23 09/23/23 09/23/23 07:33 07:33 07:33 WBC RBC Hgb Hct MCV MCHC RDW Immature Gran # Neutrophils # Neutrophils # (Manual) Lymphocytes # Lymphocytes # (Manual) Monocytes # Eosinophils # Metamyelocytes # (Man) Myelocytes # (Manual) NRBC/100 WBC Diff PT 21.0 H INR 2.1 H APTT 51.4 H Sodium Anion Gap BUN Creatinine Est GFR (CKD-EPI) BUN/Creatinine Ratio Glucose POC Glucose (mg/dL) Iron 31 L % Saturation 11.92 L Transferrin 186.0 L Ferritin 1231.0 H Total Bilirubin Troponin I Total Protein Albumin HDL Cholesterol Urine Protein Urine Blood Urine WBC Urine Mucus Crossmatch 09/23/23 09/23/23 09/23/23 12:10 14:46 22:56 WBC RBC Hgb Hct MCV MCHC RDW Immature Gran # Neutrophils # Neutrophils # (Manual) Lymphocytes # Lymphocytes # (Manual) Monocytes # Eosinophils # Metamyelocytes # (Man) Myelocytes # (Manual) NRBC/100 WBC Diff PT INR APTT Sodium Anion Gap BUN Creatinine Est GFR (CKD-EPI) BUN/Creatinine Ratio Glucose POC Glucose (mg/dL) 138 H Iron % Saturation Transferrin Ferritin Total Bilirubin Troponin I Total Protein Albumin HDL Cholesterol Urine Protein 2+ H Urine Blood Trace H Urine WBC 6 H Urine Mucus Rare H Crossmatch See Detail 09/24/23 09/24/23 09/24/23 05:28 05:28 05:28 WBC 20.5 H RBC 2.57 L Hgb 7.4 L Hct 24.2 L MCV MCHC 30.6 L RDW 19.9 H Immature Gran # Neutrophils # 19.5 H Neutrophils # (Manual) Lymphocytes # 0.4 L Lymphocytes # (Manual) Monocytes # Eosinophils # Metamyelocytes # (Man) Myelocytes # (Manual) NRBC/100 WBC Diff PT 13.0 H INR 1.2 H APTT Sodium 136 L Anion Gap BUN 55 H Creatinine 1.78 H Est GFR (CKD-EPI) BUN/Creatinine Ratio Glucose 125 H POC Glucose (mg/dL) Iron % Saturation Transferrin Ferritin Total Bilirubin Troponin I Total Protein Albumin HDL Cholesterol Urine Protein Urine Blood Urine WBC Urine Mucus Crossmatch 09/24/23 09/25/23 09/25/23 06:37 01:09 05:45 WBC RBC Hgb Hct MCV MCHC RDW Immature Gran # Neutrophils # Neutrophils # (Manual) Lymphocytes # Lymphocytes # (Manual) Monocytes # Eosinophils # Metamyelocytes # (Man) Myelocytes # (Manual) NRBC/100 WBC Diff PT INR 1.2 H APTT Sodium Anion Gap BUN Creatinine Est GFR (CKD-EPI) BUN/Creatinine Ratio Glucose POC Glucose (mg/dL) 148 H 143 H Iron % Saturation Transferrin Ferritin Total Bilirubin Troponin I Total Protein Albumin HDL Cholesterol Urine Protein Urine Blood Urine WBC Urine Mucus Crossmatch 09/25/23 09/25/23 09/25/23 05:45 05:45 06:02 WBC 19.11 H RBC 2.29 L Hgb 6.7 A* Hct 22.4 L MCV 97.8 H MCHC 29.9 L RDW 20.2 H Immature Gran # 0.36 H Neutrophils # 18.20 H Neutrophils # (Manual) Lymphocytes # 0.36 L Lymphocytes # (Manual) Monocytes # 0.15 L Eosinophils # 0 L Metamyelocytes # (Man) Myelocytes # (Manual) NRBC/100 WBC Diff 0.05 H PT INR APTT Sodium Anion Gap 13.90 H BUN 51.4 H Creatinine 2.4 H Est GFR (CKD-EPI) 22 L BUN/Creatinine Ratio 21.42 H Glucose 119 H POC Glucose (mg/dL) 132 H Iron % Saturation Transferrin Ferritin Total Bilirubin 0.2 L Troponin I Total Protein 4.8 L Albumin 3.0 L HDL Cholesterol Urine Protein Urine Blood Urine WBC Urine Mucus Crossmatch Assessment and Plan Assessment: This is a 63-year-old woman who was 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 During this admission she was found to have unequal pupils left slightly bigger than the right but she denies of any headache visual disturbance difficulty swallowing. Anisocoria left pupil is 4 mm and the right is 3 mm and both reactive to light: Unsure exact etiology. Unsure if it is due to the vasculitis. Unsure if due to medication ?(on nebulizers). On examination visual gomez are full and no nystagmus. Recent perforated sigmoid diverticulitis status post diagnostic laparoscopy with sigmoid colectomy and end colostomy on 09/23/2023 Acute kidney injury since June 2023 and patient required temporary dialysis which she completed and kidneys are improving but not back to baseline Anemia Has significant bilateral lower extremity weakness more than upper since June 2023 the patient states her strength is improving and now she is walking with a walker. Cardiomyopathy and ejection fraction of 25 to 30% since she had vasculitis History of recent pulmonary embolism DVT and is on Coumadin History of COPD Ex tobacco user Plan: CT of the head is ordered I ordered CK level, KATIE, SSA/SSB, jaz Able to obtain CT angiography of the head and neck since the patient has acute kidney injury. Obtain carotid duplex If CT of the head is negative we can obtain MRI of the brain. The patient is on methylprednisolone 40 mg every 8 hours. Pulm medication was prednisone 60 mg daily but it was stopped and patient is on methylprednisolone started by the pulmonary team. Can consider a temporal artery biopsy to rule out giant cell arteritis. Pulmonary team is on board, ID team is on board, nephrology team is on board and cardiology team is on board Will defer the rest of the medical management to primary and other specialist Plan discussed with the patient and her nurse Thank you for the consultation. Time with Patient: Greater than 30
--- NOTE | 2023-09-25 13:38 | CT ---
EXAMINATION TYPE: CT brain wo con CT DLP: 1109.4 mGycm, Automated exposure control for dose reduction was used. DATE OF EXAM: 09/25/2023 12:53 PM COMPARISON: None. CLINICAL INDICATION:Female, 63 years old with history of unequal pupils, unequal pupils TECHNIQUE: Brain: Axial CT images of the brain were obtained with coronal and sagittal reformats created and rev iewed. Contrast used: None. Oral contrast used: None. FINDINGS: Brain: Extra-axial spaces: No abnormal extra-axial fluid collections. Ventricular system: Dilatation in proportion to cerebral atrophy. Cerebral parenchyma: Cerebral atrophy. No acute intraparenchymal hemorrhage or mass effect. The flower -white junction is well differentiated. Scattered hypoattenuating areas are seen within the white mat ter. Cerebellum: Unremarkable. Mass effect: No evidence of midline shift. Intracranial vasculature: unremarkable Soft tissues: Normal. Calvarium/osseous structures: No depressed skull fracture. Paranasal sinuses and mastoid air cells: Mild scattered paranasal sinus disease. Visualized orbits: Orbital contents are intact. IMPRESSION: 1. No acute intracranial process. 2. Nonspecific white matter changes, likely secondary to chronic small vessel ischemic disease.
--- NOTE | 2023-09-25 15:12 | US ---
EXAMINATION TYPE: US carotid duplex BILAT DATE OF EXAM: 09/25/2023 COMPARISON: NONE CLINICAL INDICATION: Female, 63 years old with history of stroke.; HTN per patient. TECHNIQUE: Carotid duplex ultrasound examination. Indirect Doppler criteria was utilized. FINDINGS: EXAM MEASUREMENTS: RIGHT: Peak Systolic Velocity (PSV) cm/sec ----- Right CCA: 44.8 ----- Right ICA: 44.8 ----- Right ECA: 46.9 ICA/CCA ratio: 1.0 RIGHT: End Diastole cm/sec ----- Right CCA: 13.5 ----- Right ICA: 9.9 ----- Right ECA: 0.0 LEFT: Peak Systolic Velocity (PSV) cm/sec ----- Left CCA: 40.5 ----- Left ICA: 46.2 ----- Left ECA: 58.4 ICA/CCA ratio: 1.1 LEFT: End Diastole cm/sec ----- Left CCA: 12.0 ----- Left ICA: 17.0 ----- Left ECA: 8.6 VERTEBRALS (direction of flow): Right Vertebral: Antegrade Left Vertebral: Antegrade Rhythm: Normal GUM REMOVER NOTES: Small plaque bilateral bulbs. No elevated velocities or wall thickening. IMPRESSION: Less than 50% stenosis of the bilateral carotid bifurcations. Criteria for Assigning % of Stenosis / Diameter reduction (Estimation based on the indirect measurements of the internal carotid artery velocities (ICA PSV). 1. Normal (no stenosis)=ICA PSV < 125 cm/s: ratio < 2.0: ICA EDV<40 cm/s. 2. Less than 50% stenosis=ICA PSV < 125 cm/s: ratio < 2.0: ICA EDV<40 cm/s. 3. 50 to 69% stenosis=ICA PSV of 125 to 230 cm/s: ration 2.0 ? 4.0: ICA EDV 40-100 cm/s. 4. Greater than 70% stenosis to near occlusion= ICA PSV > 230 cm/s: ratio > 4.0: ICA EDV > 100 cm/s. 5. Near occlusion= ICA PSV velocities may be low or undetectable: variable ratio and ICA EDV. 6. Total occlusion=unable to detect flow.
--- NOTE | 2023-09-25 16:38 | P.PN ---
Progress Note - Text Progress Note Date: 09/25/23 CHIEF COMPLAINT: Perforated sigmoid diverticulitis HISTORY OF PRESENT ILLNESS: POD #2 status post diagnostic laparoscopy with sigmoid colectomy and end colostomy. Pain is controlled. She denies any nausea and vomiting. SILVIO has serosanguineous output. Afebrile. PHYSICAL EXAM: VITAL SIGNS: Reviewed. GENERAL: Well-developed in no acute distress. ABDOMEN: Soft. mildly distended. Surgical dressing clean dry and intact. Colostomy on the left with stoma pink. No output. NEUROLOGIC: Alert and oriented. Cranial nerves II through XII grossly intact. ASSESSMENT: 1. perforated sigmoid diverticulitis PLAN: -Full Liquid Diet -Patient receiving 2 units PRBCs -Maintain tolbert while getting IV Lasix -Consult ostomy nurse for ostomy education -Continue pain management -continue IV fluids -GI prophylaxis Protonix and DVT prophylaxis Lovenox
[2023-09-26 05:04] LABS: INR 1.4 (<1.2); Prothrombin Time 14.8 sec (10.0-12.5)
--- NOTE | 2023-09-26 07:50 | P.PN ---
Subjective Progress Note Date: 09/26/23 Principal diagnosis: Shortness of breath. This is a 63-year-old female patient with a known history of chronic obstructive pulmonary disease, former smoker, previous acute kidney injury requiring dialysis that she completed approximately 2 weeks ago. She presented here to the emergency room today with increasing shortness of breath. Symptoms started just this morning. No fever or chills. No cough or congestion. Mainly dyspnea on minimal exertion. Chest x-ray reveals evidence of COPD with superimposed interstitial opacities, possible pulmonary edema versus atypical pneumonia. White count 27.9. Hemoglobin 10.5. Platelets 294. INR 1.3. Sodium 136. Potassium 4.3. Bicarb 30. BUN 47. Creatinine 1.56. Glucose 196. Troponin 0.205. proBNP 60,000. The patient is seen in consultation in the emergency department. She is currently sitting up on the stretcher. Awake and alert. On BiPAP 14/5 and 40% FiO2 to maintain O2 saturations in the 90s. Been initiated o n a heparin drip. Initiated on antibiotics, bronchodilators and steroids. The patient is seen today September 22, 2023 in follow-up in the emergency department. She is awake and alert in no acute distress. Breathing easier today compared to yesterday. She is maintaining good O2 saturations in the 90s on 2 L/min per nasal cannula. She has been off the BiPAP. She remains on a heparin drip. Peak troponin 0.521. She is continued on DuoNeb inhalations, Symbicort, Solu-Medrol. She is continued on ceftriaxone. Chest x-ray shows diffuse interstitial opacities with slight improvement. Progress note dated September 23, 2023. 63-year-old female with a history of underlying COPD. The patient was initially seen in the emergency department, 2 days ago, with a COPD exacerbation. Initially, the patient had mental status changes, and she was not particularly alert, and required BiPAP. Currently, she is doing much better. She is currently on 2 L. She did not use the BiPAP last night. She is complaining of left groin pain, and thinks that she may have a bladder infection. The urinalysis call, culture and sensitivity have been ordered. From the pulmonary standpoint, she is improved. Current labs include a white count 23.1, hemoglobin 8.4, hematocrit 26.3, and platelet count 294,000. PT 21, INR 2.1, PTT 51.4. Sodium 135, potassium 3.9, chloride 99, CO2 26, BUN 57, creatinine 1.85. Urine is colorless and clear. There is 2+ protein. Trace ketones. Nitrite was negative. LE was negative. There is only 6 WBCs, no bacteria. CT of the abdomen and pelvis shows evidence of pneumoperitoneum with findings of sigmoid diverticulitis. Progress note dated September 25, 2023. 63-year-old female with history of COPD. She presented to the emergency department with a COPD exacerbation. More recently, the patient was complaining of left groin pain, a CT scan was done which showed pneumoperitoneum, and bowel perforation. She is postop day #2, status post exploratory laparotomy, for perf orated sigmoid diverticulitis, with a colectomy and sigmoid colostomy. She is currently doing much better. She is on 2 L of oxygen. Saturations are 98%. Current labs include a white count of 19.1, hemoglobin 6.7, hematocrit 22.4, and a platelet count of 235,000. Sodium 137, potassium 5.3, chlorides 98, CO2 25, BUN 51, and creatinine 2.4. Glucose is 132. The patient's wound culture shows evidence of Enterococcus faefium and Enterococcus faecalis. Therapies are currently pending. No recent chest x-ray. The patient is currently on Zosyn. Progress note dated September 26, 2023. The patient is seen today in room 452. The patient is 63-year-old female. She initially presented with a COPD exacerbation. She is postoperative day #3, status post exploratory laparotomy, for perforated sigmoid diverticulum with colectomy and sigmoid colostomy. Currently, the patient is on 3 L of oxygen. She is receiving lactated Ringer's at 75 cc an hour. She continues on Zosyn. The patient is feeling much better. Laboratory data includes only a PT of 14.8, and INR of 1.4. Abdominal cultures, from September 22 show Bacteroides, and cultures from the wound, on September 22 show evidence of Enterococcus, which are vancomycin- resistant enterococci. Objective - Vital Signs Vital signs: Vital Signs Temp 98.2 F 09/26/23 07:14 Pulse 82 09/26/23 07:41 Resp 17 07/21/24 07:14 BP 151/89 09/26/23 07:14 Pulse Ox 95 09/26/23 07:14 FiO2 35 09/21/23 20:21 Intake & Output 09/25/23 09/26/23 09/26/23 18:59 06:59 18:59 Intake Total 2200 Output Total 1310 585 45 Balance 890 -585 -45 Weight 60 kg Intake: IV 1100 Lactated Ringers 1,000 ml 900 @ 75 mls/hr IV .[id number] [facility] Rx#:[id number] Piperacillin-Tazobactam 3 200 .375 gm In Sodium Chloride 0.9% 100 ml @ 25 mls/hr IVPB Q8HR [facility] Rx# :[id number] Oral 480 Blood Product 620 Rc As-1 Unit 310 [id number] Output: Drainage 35 35 45 SILVIO Abdomen 35 35 45 Urine 1275 550 Other: Voiding Method Indwelling Catheter Indwelling Catheter # Voids 2 - Exam No acute distress, oriented 3. She is currently on 3 L. HEENT examination is grossly unremarkable. Mucous membranes are moist. No oral lesions. Neck supple. Full range of motion. No adenopathy thyromegaly or neck vein distention. Cardiovascular examination reveals regular rhythm rate. S1-S2 normal. No S3 or S4. No discernible murmur noted. Heart rate 82 bpm. Lungs reveal mostly clear breath sounds. Breath sounds are improved. There is scattered rhonchi noted. No wheezes or crackles. Saturations are 95%. Abdomen soft bowel sounds are heard. No masses or tenderness. Incision is clean and dry. Colostomy is noted. Extremities are intact. No cyanosis clubbing or edema. Skin is without rash or lesion. Neurologic examination is brief but nonfocal. - Labs CBC & Chem 7: 09/25/23 05:45 09/25/23 05:45 Labs: Abnormal Lab Results - Last 24 Hours (Table) 09/23/23 09/25/23 09/25/23 Range/Units 14:46 05:45 05:45 WBC 19.11 H (4.50-10.00) X 10*3/uL RBC 2.29 L (4.10-5.20) X 10*6/uL Hgb 6.7 A* (12.0-15.0) g/dL Hct 22.4 L (37.2-46.3) % MCV 97.8 H (80.0-97.0) FL MCHC 29.9 L (32.0-37.0) g/dL RDW 20.2 H (11.5-14.5) % Immature Gran # 0.36 H (0.00-0.04) X 10*3/uL Neutrophils # 18.20 H (1.80-7.70) X 10*3/uL Lymphocytes # 0.36 L (0.90-5.00) X 10*3/uL Monocytes # 0.15 L (0.20-1.00) X 10*3/uL Eosinophils # 0 L (0.04-0.35) X 10*3/uL NRBC/100 WBC Diff 0.05 H (0.00-0.01) X 10*3/uL PT (10.0-12.5) sec INR (<1.2) Anion Gap 13.90 H (4.00-12.00) mmol/L BUN 51.4 H (9.0-27.0) mg/dL Creatinine 2.4 H (0.6-1.5) mg/dL Est GFR (CKD-EPI) 22 L (>=60) BUN/Creatinine Ratio 21.42 H (12.00-20.00) Ratio Glucose 119 H (70-110) mg/dL Total Bilirubin 0.2 L (0.3-1.2) mg/dL Creatine Kinase (30-135) U/L Total Protein 4.8 L (6.2-8.2) g/dL Albumin 3.0 L (3.8-4.9) g/dL Crossmatch See Detail 09/25/23 09/26/23 Range/Units 13:20 04:10 WBC (4.50-10.00) X 10*3/uL RBC (4.10-5.20) X 10*6/uL Hgb (12.0-15.0) g/dL Hct (37.2-46.3) % MCV (80.0-97.0) FL MCHC (32.0-37.0) g/dL RDW (11.5-14.5) % Immature Gran # (0.00-0.04) X 10*3/uL Neutrophils # (1.80-7.70) X 10*3/uL Lymphocytes # (0.90-5.00) X 10*3/uL Monocytes # (0.20-1.00) X 10*3/uL Eosinophils # (0.04-0.35) X 10*3/uL NRBC/100 WBC Diff (0.00-0.01) X 10*3/uL PT 14.8 H (10.0-12.5) sec INR 1.4 H (<1.2) Anion Gap (4.00-12.00) mmol/L BUN (9.0-27.0) mg/dL Creatinine (0.6-1.5) mg/dL Est GFR (CKD-EPI) (>=60) BUN/Creatinine Ratio (12.00-20.00) Ratio Glucose (70-110) mg/dL Total Bilirubin (0.3-1.2) mg/dL Creatine Kinase 25 L (30-135) U/L Total Protein (6.2-8.2) g/dL Albumin (3.8-4.9) g/dL Crossmatch Microbiology - Last 24 Hours (Table) 09/23/23 18:51 Gram Stain - Preliminary Other - Other Wound Culture - Preliminary Enterococcus faecium VRE Enterococcus faecalis VRE 09/23/23 18:51 Anaerobic Culture - Final Abdominal Fluid Bacteroides thetaiotaomicron Bacteroides fragilis Assessment and Plan Assessment: Acute hypoxemic respiratory failure secondary to an acute exacerbation of chronic obstructive pulmonary disease, acute systolic congestive heart failure. Postop day #3, status post exploratory laparotomy, sigmoid colectomy, and sigmoid colostomy, for ruptured sigmoid diverticulum. Acute left lower quadrant pain, with evidence of pneumoperitoneum, and sigmoid diverticulitis. Troponin leak. Acute kidney injury. Leukocytosis. Severe cardiomyopathy with an ejection fraction of 25-30 %. History of chronic obstructive pulmonary disease. Chronic tobacco dependence. Question of vasculitis and was to have had a kidney biopsy in June 2023. Acute kidney injury requiring temporary hemodialysis, states completed 2 weeks ago. History of PE/DVT, on warfarin. Plan: Plan dated September 23, 2023. The patient certainly doing much better from the pulmonary standpoint. Unfortunately, she complained of acute left lower quadrant/groin pain and we ordered a urinalysis which was clear. A CT scan of the abdomen and pelvis reveals evidence of pneumoperitoneum, with evidence of sigmoid diverticulitis. Surgery obviously should be consulted. Labs, x-rays and medications are reviewed. The patient is a no code patient. Plan dated September 25, 2023. The patient was seen in room 452. The patient is actually doing very well. She is on 2 L. Vital signs are stable. Patient continues on Zosyn. She is postoperative day #2. We encourage deep breathing, coughing, clearing of secretions. In addition, we recommend hourly use of the incentive spirometer. The rest of the labs and medications are appropriate. We will continue to follow. No additional recommendations are made at this time. Plan dated September 26, 2023. The patient is seen today in room 452. She continues on oxygen at 3 L/min. She is getting lactated Ringer's at 75 cc an hour. She continues to work on her incentive spirometer. Clinically, she looks well. She continues to improve. We will continue to follow. Labs, x-rays, medications are reviewed. She continues on Zosyn. No additional recommendations at this time. Time with Patient: Less than 30
[2023-09-26 08:41] LABS: Anisocytosis Slight; HCT 26.9 % (34.0-46.0); HGB 8.6 gm/dL (11.4-16.0); Hypochromasia Moderate; MCH 30.1 pg (25.0-35.0); MCHC 31.8 g/dL (31.0-37.0); MCV 94.6 fL (80.0-100.0); Macrocytosis Slight; Mean Platelet Volume 9.2; Platelet Count 243 k/uL (150-450); RBC 2.85 m/uL (3.80-5.40); RDW 19.7 % (11.5-15.5)
[2023-09-26 09:02] LABS: African American GFR (CKD) 23 (>60 ml/min/1.73 sqM); Blood Urea Nitrogen 54 mg/dL (7-17); Calcium 8.9 mg/dL (8.4-10.2); Carbon Dioxide 27 mmol/L (22-30); Glucose 156 mg/dL (74-99); Non-African American GFR(CKD) 20 (>60 ml/min/1.73 sqM); Potassium 4.5 mmol/L (3.5-5.1); Sodium 135 mmol/L (137-145)
[2023-09-26 09:09] LABS: Lymphocytes # (M) 0.31 k/uL (1.0-4.8); Metamyelocytes % 1 %; Neutrophils % (M) 96 %; Nucleated Red Blood Cells 2 /100 WBC (0-0); Total Cells Counted 100
[2023-09-26 09:10] LABS: Metamyelocytes # (M) 0.15 k/uL (0); Monocytes # (M) 0.15 k/uL (0-1.0); Neutrophils # (M) 14.78 k/uL (1.3-7.7); WBC 15.4 k/uL (3.8-10.6)
[2023-09-26 09:22] LABS: Chloride 99 mmol/L (98-107)
[2023-09-26 09:23] LABS: Anion Gap 9 mmol/L
--- NOTE | 2023-09-26 09:47 | P.PN ---
Subjective Progress Note Date: 09/26/23 This is a 63-year-old female patient of Dr. Daniels who presented to the ER with concerns of increased shortness of breath. Patient was recently admitted at [facility] last week for similar symptoms but did leave AMA prior to completion of treatment. Patient was alsopatient was also recently admitted recently admitted and transferred to [facility] and transferred to [facility] due to diagnosis of vasculitis and required hemodialysis during the hospital stay patient also had episode of pulmonary embolism in which she was started on Coumadin. Patient recently had hemodialysis catheter DC'd.. Additional medical history includes COPD and ex-smoker. Chest x-ray completed in ER showing COPD with superimposed interstitial opacities possible interstitial pulmonary edema versus atypicalCOPD with superimposed interstitial bases possible interstitial pulmonary edema versus atypical pneumonitis. Lab work revealing BNP level 60,000.. [id number] 0.205, 0.403 and 0.521. Creatinine 1.56 bun 47. White blood cell 27.9 hemoglobin 10.5 . Patient was started on Zithromax and Rocephin. Given dose of IV Lasix. Started on heparin drip for elevated troponins. Cardiology pulmonary and nephrology services consulted. Cardiology pulmonary and nephrology service is consulted. Current vital signs Temp 97.3, heart rate 95, respiratory rate 18, blood pressure 143/88 with a pulse ox of 96% on 2 L. On 09/23/2023 patient was seen and examined on the medical floor she is alert and oriented x 3 in no apparent distress, she started complaining of severe abdominal pain in the bilateral lower quadrants this morning, otherwise she denies any complaints there is no fever or chills no headache or dizziness no chest pain no shortness of breath no cough no nausea or vomiting no diarrhea no blood in the stools no burning with urination no frequency or urgency and no hematuria, CT scan of the abdomen and pelvis without contrast was ordered, will follow closely On 09/24/2023 Patient's alert and oriented 3. Patient is status post diagnostic laparoscopy sigmoid colectomy with end colostomy secondary to perforated sigmoid diverticulitis. Patient is currently postop day 1. Patient was transferred to the intensive care unit postoperatively but has been extubated to 2 L. Patient remains on IV Zosyn. Vertical care, nephrology, surgical, infectious disease service is following. Patient denies chest pain or shortness breath. Patient denies nausea vomiting or diarrhea. Burning or frequency On 09/25/2023 patient was seen and examined on the medical floor, she is alert and oriented x 3 in no apparent distress, there is no fever or chills no headache or dizziness no chest pain no shortness of breath no cough no nausea or vomiting no abdominal pain no diarrhea and no urinary symptoms, patient was noticed by her nurse to have an equal pupils, patient denies any previous knowl edge of abnormal pupil size, CT scan of the brain and neurology consultation will be initiated, hemoglobin today is down to 6.7 and patient will be given 1 unit of red blood cells. On 09/26/2023 patient is alert and oriented x 3. Patient has been tolerating full liquid diet. Patient el on IV Zosyn. Neurology services are following. Current vital signs Temp 98.2, rate 85, respiratory rate 15, blood pressure 151/89 with a pulse ox of 95% on 2 L. Patient denies chest pain or shortness of breath. Patient denies nausea vomiting or diarrhea. Patient denies any urinary burning or frequency Objective - Vital Signs Vital signs: Vital Signs Temp 98.2 F 09/26/23 07:14 Pulse 84 09/26/23 07:53 Resp 17 09/26/23 07:14 BP 151/89 09/26/23 07:14 Pulse Ox 95 09/26/23 07:14 FiO2 35 09/21/23 20:21 Intake & Output 09/25/23 09/26/23 09/26/23 18:59 06:59 18:59 Intake Total 2200 Output Total 1310 585 45 Balance 890 -585 -45 Weight 60 kg Intake: IV 1100 Lactated Ringers 1,000 ml 900 @ 75 mls/hr IV .[id number] [facility] Rx#:[id number] Piperacillin-Tazobactam 3 200 .375 gm In Sodium Chloride 0.9% 100 ml @ 25 mls/hr IVPB Q8HR [facility] Rx# :[id number] Oral 480 Blood Product 620 Rc As-1 Unit 310 [id number] Output: Drainage 35 35 45 ISLVIO Abdomen 35 35 45 Urine 1275 550 Other: Voiding Method Indwelling Catheter Indwelling Catheter # Voids 2 - Exam Physical examHead normocephalic Neck supple Lungs diminished bilaterally Heart regular rate and rhythm S1-S2, no rub or gallop Abdomen is soft with mild diffuse tenderness especially in the pelvic area bilaterally no organomegaly no palpable masses Extremities no edema Neuro alert and orientated to 3 - Labs CBC & Chem 7: 09/26/23 08:23 09/26/23 08:23 Labs: Abnormal Lab Results - Last 24 Hours (Table) 09/23/23 09/25/23 09/25/23 Range/Units 14:46 05:45 05:45 WBC 19.11 H (4.50-10.00) X 10*3/uL RBC 2.29 L (4.10-5.20) X 10*6/uL Hgb 6.7 A* (12.0-15.0) g/dL Hct 22.4 L (37.2-46.3) % MCV 97.8 H (80.0-97.0) FL MCHC 29.9 L (32.0-37.0) g/dL RDW 20.2 H (11.5-14.5) % Immature Gran # 0.36 H (0.00-0.04) X 10*3/uL Neutrophils # 18.20 H (1.80-7.70) X 10*3/uL Neutrophils # (Manual) (1.3-7.7) k/uL Lymphocytes # 0.36 L (0.90-5.00) X 10*3/uL Lymphocytes # (Manual) (1.0-4.8) k/uL Monocytes # 0.15 L (0.20-1.00) X 10*3/uL Eosinophils # 0 L (0.04-0.35) X 10*3/uL Metamyelocytes # (Man) (0) k/uL Nucleated RBCs (0-0) /100 WBC NRBC/100 WBC Diff 0.05 H (0.00-0.01) X 10*3/uL PT (10.0-12.5) sec INR (<1.2) Sodium (137-145) mmol/L Anion Gap 13.90 H (4.00-12.00) mmol/L BUN 51.4 H (9.0-27.0) mg/dL Creatinine 2.4 H (0.6-1.5) mg/dL Est GFR (CKD-EPI) 22 L (>=60) BUN/Creatinine Ratio 21.42 H (12.00-20.00) Ratio Glucose 119 H (70-110) mg/dL Total Bilirubin 0.2 L (0.3-1.2) mg/dL Creatine Kinase (30-135) U/L Total Protein 4.8 L (6.2-8.2) g/dL Albumin 3.0 L (3.8-4.9) g/dL Crossmatch See Detail 09/25/23 09/26/23 09/26/23 Range/Units 13:20 04:10 08:23 WBC 15.4 H (4.50-10.00) X 10*3/uL RBC 2.85 L (4.10-5.20) X 10*6/uL Hgb 8.6 L (12.0-15.0) g/dL Hct 26.9 L (37.2-46.3) % MCV (80.0-97.0) FL MCHC (32.0-37.0) g/dL RDW 19.7 H (11.5-14.5) % Immature Gran # (0.00-0.04) X 10*3/uL Neutrophils # (1.80-7.70) X 10*3/uL Neutrophils # (Manual) 14.78 H (1.3-7.7) k/uL Lymphocytes # (0.90-5.00) X 10*3/uL Lymphocytes # (Manual) 0.31 L (1.0-4.8) k/uL Monocytes # (0.20-1.00) X 10*3/uL Eosinophils # (0.04-0.35) X 10*3/uL Metamyelocytes # (Man) 0.15 H (0) k/uL Nucleated RBCs 2 H (0-0) /100 WBC NRBC/100 WBC Diff (0.00-0.01) X 10*3/uL PT 14.8 H (10.0-12.5) sec INR 1.4 H (<1.2) Sodium (137-145) mmol/L Anion Gap (4.00-12.00) mmol/L BUN (9.0-27.0) mg/dL Creatinine (0.6-1.5) mg/dL Est GFR (CKD-EPI) (>=60) BUN/Creatinine Ratio (12.00-20.00) Ratio Glucose (70-110) mg/dL Total Bilirubin (0.3-1.2) mg/dL Creatine Kinase 25 L (30-135) U/L Total Protein (6.2-8.2) g/dL Albumin (3.8-4.9) g/dL Crossmatch 09/26/23 Range/Units 08:23 WBC (4.50-10.00) X 10*3/uL RBC (4.10-5.20) X 10*6/uL Hgb (12.0-15.0) g/dL Hct (37.2-46.3) % MCV (80.0-97.0) FL MCHC (32.0-37.0) g/dL RDW (11.5-14.5) % Immature Gran # (0.00-0.04) X 10*3/uL Neutrophils # (1.80-7.70) X 10*3/uL Neutrophils # (Manual) (1.3-7.7) k/uL Lymphocytes # (0.90-5.00) X 10*3/uL Lymphocytes # (Manual) (1.0-4.8) k/uL Monocytes # (0.20-1.00) X 10*3/uL Eosinophils # (0.04-0.35) X 10*3/uL Metamyelocytes # (Man) (0) k/uL Nucleated RBCs (0-0) /100 WBC NRBC/100 WBC Diff (0.00-0.01) X 10*3/uL PT (10.0-12.5) sec INR (<1.2) Sodium 135 L (137-145) mmol/L Anion Gap (4.00-12.00) mmol/L BUN 54 H (9.0-27.0) mg/dL Creatinine 2.53 H (0.6-1.5) mg/dL Est GFR (CKD-EPI) (>=60) BUN/Creatinine Ratio (12.00-20.00) Ratio Glucose 156 H (70-110) mg/dL Total Bilirubin (0.3-1.2) mg/dL Creatine Kinase (30-135) U/L Total Protein (6.2-8.2) g/dL Albumin (3.8-4.9) g/dL Crossmatch Microbiology - Last 24 Hours (Table) 09/23/23 18:51 Gram Stain - Preliminary Other - Other Wound Culture - Preliminary Enterococcus faecium VRE Enterococcus faecalis VRE 09/23/23 18:51 Anaerobic Culture - Final Abdominal Fluid Bacteroides thetaiotaomicron Bacteroides fragilis Assessment and Plan Assessment: Acute hypoxic respiratory failure secondary to acute exacerbation of COPD and acute systolic congestive heart failure Acute exacerbation of COPD. Patient started on IV steroids Acute systolic congestive heart failure Perforated sigmoid diverticulitis status postS igmoid colectomy with end colost debora on 09/23/2023 Elevated troponins Acute on chronic kidney disease Recent diagnosis of vasculitis at [facility] Recent history of PE/DVT maintained on Coumadin History of cardiomyopathy with EF of 15 to 20% History of tobacco abuse recently quit Unequal pupil size. Neurology service is following DVT prophylaxis lovenox. GI prophylaxis Protonix Pulmonary, cardiology and nephrology services consulted Patient started on IV steroids and IV antibiotics The patient was transferred to the intensive care unit postoperatively
--- NOTE | 2023-09-26 10:15 | P.PN ---
Subjective Progress Note Date: 09/26/23 Patient states she feels well. She has had no significant output through colostomy. On exam vital signs are stable. Abdomen is soft. Incisions clean dry intact. Status post sigmoid resection for diverticulitis. Patient to receive supportive care. Objective - Vital Signs Vital signs: Vital Signs Temp 98.2 F 09/26/23 07:14 Pulse 84 09/26/23 07:53 Resp 17 09/26/23 07:14 BP 151/89 09/26/23 07:14 Pulse Ox 95 09/26/23 07:14 FiO2 35 09/21/23 20:21 Intake & Output 09/25/23 09/26/23 09/26/23 18:59 06:59 18:59 Intake Total 2200 Output Total 1310 585 45 Balance 890 -585 -45 Weight 60 kg Intake: IV 1100 Lactated Ringers 1,000 ml 900 @ 75 mls/hr IV .[id number] [facility] Rx#:[id number] Piperacillin-Tazobactam 3 200 .375 gm In Sodium Chloride 0.9% 100 ml @ 25 mls/hr IVPB Q8HR [facility] Rx# :[id number] Oral 480 Blood Product 620 Rc As-1 Unit 310 [id number] Output: Drainage 35 35 45 SILVIO Abdomen 35 35 45 Urine 1275 550 Other: Voiding Method Indwelling Catheter Indwelling Catheter # Voids 2 - Labs CBC & Chem 7: 09/26/23 08:23 09/26/23 08:23 Labs: Abnormal Lab Results - Last 24 Hours (Table) 09/23/23 09/25/23 09/26/23 Range/Units 14:46 13:20 04:10 WBC (3.8-10.6) k/uL RBC (3.80-5.40) m/uL Hgb (11.4-16.0) gm/dL Hct (34.0-46.0) % RDW (11.5-15.5) % Neutrophils # (Manual) (1.3-7.7) k/uL Lymphocytes # (Manual) (1.0-4.8) k/uL Metamyelocytes # (Man) (0) k/uL Nucleated RBCs (0-0) /100 WBC PT 14.8 H (10.0-12.5) sec INR 1.4 H (<1.2) Sodium (137-145) mmol/L BUN (7-17) mg/dL Creatinine (0.52-1.04) mg/dL Glucose (74-99) mg/dL Creatine Kinase 25 L (30-135) U/L Crossmatch See Detail 09/26/23 09/26/23 Range/Units 08:23 08:23 WBC 15.4 H (3.8-10.6) k/uL RBC 2.85 L (3.80-5.40) m/uL Hgb 8.6 L (11.4-16.0) gm/dL Hct 26.9 L (34.0-46.0) % RDW 19.7 H (11.5-15.5) % Neutrophils # (Manual) 14.78 H (1.3-7.7) k/uL Lymphocytes # (Manual) 0.31 L (1.0-4.8) k/uL Metamyelocytes # (Man) 0.15 H (0) k/uL Nucleated RBCs 2 H (0-0) /100 WBC PT (10.0-12.5) sec INR (<1.2) Sodium 135 L (137-145) mmol/L BUN 54 H (7-17) mg/dL Creatinine 2.53 H (0.52-1.04) mg/dL Glucose 156 H (74-99) mg/dL Creatine Kinase (30-135) U/L Crossmatch Microbiology - Last 24 Hours (Table) 09/23/23 18:51 Gram Stain - Preliminary Other - Other Wound Culture - Preliminary Enterococcus faecium VRE Enterococcus faecalis VRE 09/23/23 18:51 Anaerobic Culture - Final Abdominal Fluid Bacteroides thetaiotaomicron Bacteroides fragilis
--- NOTE | 2023-09-26 11:50 | P.PN ---
Subjective Progress Note Date: 09/26/23 I am following up with the patient and patient continues to deny any headache, any nausea any vomiting, any visual disturbance. She feels she is stable otherwise. She stated that she had a biopsy kidney over at [facility] and that confirmed her vasculitis in June 2023. Objective - Vital Signs Vital signs: Vital Signs Temp 98.2 F 09/26/23 07:14 Pulse 84 09/26/23 07:53 Resp 17 09/26/23 08:52 BP 151/89 09/26/23 07:14 Pulse Ox 95 09/26/23 07:14 FiO2 35 09/21/23 20:21 Intake & Output 09/25/23 09/26/23 09/26/23 18:59 06:59 18:59 Intake Total 2200 Output Total 1310 585 65 Balance 890 -585 -65 Weight 60 kg Intake: IV 1100 Lactated Ringers 1,000 ml 900 @ 75 mls/hr IV .[id number] [facility] Rx#:[id number] Piperacillin-Tazobactam 3 200 .375 gm In Sodium Chloride 0.9% 100 ml @ 25 mls/hr IVPB Q8HR [facility] Rx# :[id number] Oral 480 Blood Product 620 Rc As-1 Unit 310 [id number] Output: Drainage 35 35 65 SLIVIO Abdomen 35 35 65 Urine 1275 550 Other: Voiding Method Indwelling Catheter Indwelling Catheter Indwelling Catheter # Voids 2 - Exam GENERAL: The patient is lying in bed and is not in acute distress. Integumentary: Bruises on upper extremities. NEUROLOGICAL: Higher mental function: The patient is awake, alert, oriented to self, place and time. Patient is following commands. No aphasia and no neglect. Cranial nerves: The pupils are round, right is 3mm and left is 4mm and reactive to light and accommodation. Visual gomez are full to confrontation throughout. Extraocular movement is intact no nystagmus is noted. Facial sensation is normal to touch throughout. The facial strength is normal throughout. Hearing is normal bilaterally to hand rub. Tongue is midline and moved [id number] without any difficulty. No dysarthria is noted. Shoulder shrug is normal bilaterally. Motor: The strength is bilateral proximal flexion is 4+ while extension is 5-, forearm extension is 4+ while extension is 5-. Lowers proximal is 3, knees are 2 while ankles are 4+. Mild decrease tone in lowers. Normal bulk. Cerebellum: Normal finger to nose bilaterally. Unable to assess lowers because of weakness. Sensation: Sensation is normal to touch throughout. Reflexes (right/left): Biceps 2+/2+; triceps1+/1+; brachioradialis 1+/1+; patellar 0-1+/0-1+; ankles 0-1+/0-1+. Plantars are mute bilaterally. Some of the workup during this hospital visit consisted of: White blood cell on presentation is 27,000 and is trending down. Hemoglobin is 6.7 and today is 8.6 Most recent creatinine is 2.4. It is drastically better compared to 06/29/2023. Per recent TSH on 07/05/2023 is 3.73 which is normal CK level 25 CT head: It is reported as no acute intracranial process. Nonspecific white matter changes, likely secondary due to chronic small vessel ischemic disease. I personally reviewed the CT and I agree with the report. Carotid duplex: Less than 50% stenosis bilateral carotid bifurcation - Labs CBC & Chem 7: 09/26/23 08:23 09/26/23 08:23 Labs: Abnormal Lab Results - Last 24 Hours (Table) 09/23/23 09/25/23 09/26/23 Range/Units 14:46 13:20 04:10 WBC (3.8-10.6) k/uL RBC (3.80-5.40) m/uL Hgb (11.4-16.0) gm/dL Hct (34.0-46.0) % RDW (11.5-15.5) % Neutrophils # (Manual) (1.3-7.7) k/uL Lymphocytes # (Manual) (1.0-4.8) k/uL Metamyelocytes # (Man) (0) k/uL Nucleated RBCs (0-0) /100 WBC PT 14.8 H (10.0-12.5) sec INR 1.4 H (<1.2) Sodium (137-145) mmol/L BUN (7-17) mg/dL Creatinine (0.52-1.04) mg/dL Glucose (74-99) mg/dL Creatine Kinase 25 L (30-135) U/L Crossmatch See Detail 09/26/23 09/26/23 Range/Units 08:23 08:23 WBC 15.4 H (3.8-10.6) k/uL RBC 2.85 L (3.80-5.40) m/uL Hgb 8.6 L (11.4-16.0) gm/dL Hct 26.9 L (34.0-46.0) % RDW 19.7 H (11.5-15.5) % Neutrophils # (Manual) 14.78 H (1.3-7.7) k/uL Lymphocytes # (Manual) 0.31 L (1.0-4.8) k/uL Metamyelocytes # (Man) 0.15 H (0) k/uL Nucleated RBCs 2 H (0-0) /100 WBC PT (10.0-12.5) sec INR (<1.2) Sodium 135 L (137-145) mmol/L BUN 54 H (7-17) mg/dL Creatinine 2.53 H (0.52-1.04) mg/dL Glucose 156 H (74-99) mg/dL Creatine Kinase (30-135) U/L Crossmatch Microbiology - Last 24 Hours (Table) 09/23/23 18:51 Gram Stain - Preliminary Other - Other Wound Culture - Preliminary Enterococcus faecium VRE Enterococcus faecalis VRE 09/23/23 18:51 Anaerobic Culture - Final Abdominal Fluid Bacteroides thetaiotaomicron Bacteroides fragilis Assessment and Plan Assessment: This is a 63-year-old woman who was 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 During this admission she was found to have unequal pupils left slightly bigger than the right but she denies of any headache visual disturbance difficulty swallowing. Anisocoria left pupil is 4 mm and the right is 3 mm and both reactive to light and denies any headache or visual disturbance: Unsure exact etiology. Possible physiological since only 1mm difference vs medication iduced ?(on nebulizers) vs ?vasculitis.CT head and carotid duplex are unremarkable. Recent perforated sigmoid diverticulitis status post diagnostic laparoscopy with sigmoid colectomy and end colostomy on 09/23/2023 Recent diagnosis of vasculitis and had kidney biopsy at [facility] in June 2023 Acute kidney injury since June 2023 and patient required temporary dialysis which she completed and kidneys are improving but not back to baseline Anemia Has significant bilateral lower extremity weakness more than upper since June 2023 the patient states her strength is improving and now she is walking with a walker. Cardiomyopathy and ejection fraction of 25 to 30% since she had vasculitis History of recent pulmonary embolism DVT and is on Coumadin History of COPD Ex tobacco user Plan: Pending KATIE, SSA/SSB, jaz The patient is on methylprednisolone 40 mg every 8 hours. Pulm medication was prednisone 60 mg daily but it was stopped and patient is on methylprednisolone started by the pulmonary team. Patient does not want any further or escalation of work-up for her anisocoria at this time otherwise. Does not want MRI Brain and does not want to pursue with temporal biopsy. I highly doubt giant cell arteritis. Patient is in agreement if has any headache or visual disturbance then will proceed with work-up. Recommend the patient to be evaluated by [facility] as outpatient within 2- 3 weeks. Pulmonary team is on board, ID team is on board, nephrology team is on board and cardiology team is on board Will defer the rest of the medical management to primary and other specialist Plan discussed with the patient and her nurse and primary attending. Dr. Cagle will resume neurology service tomorrow. Time with Patient: Less than 30
--- NOTE | 2023-09-26 12:09 | P.PN ---
Subjective Progress Note Date: 09/26/23 Patient is seen in follow-up for acute kidney injury. renal function stable. Denies chest pain. Doing well and no new complaints. Vital signs are stable. General: No acute distress. HEENT: Head exam is unremarkable. LUNGS: No audible rhonchi or wheezes. HEART: Rate and Rhythm are regular. ABDOMEN: colostomy noted. No drainage. EXTREMITITES: No edema. Objective - Vital Signs Vital signs: Vital Signs Temp 98.2 F 09/26/23 07:14 Pulse 83 09/26/23 11:55 Resp 17 09/26/23 08:52 BP 151/89 09/26/23 07:14 Pulse Ox 95 09/26/23 07:14 FiO2 35 09/21/23 20:21 Intake & Output 09/25/23 09/26/23 09/26/23 18:59 06:59 18:59 Intake Total 2200 Output Total 1310 585 65 Balance 890 -585 -65 Weight 60 kg Intake: IV 1100 Lactated Ringers 1,000 ml 900 @ 75 mls/hr IV .[id number] [facility] Rx#:[id number] Piperacillin-Tazobactam 3 200 .375 gm In Sodium Chloride 0.9% 100 ml @ 25 mls/hr IVPB Q8HR [facility] Rx# :[id number] Oral 480 Blood Product 620 Rc As-1 Unit 310 [id number] Output: Drainage 35 35 65 SILVIO Abdomen 35 35 65 Urine 1275 550 Other: Voiding Method Indwelling Catheter Indwelling Catheter Indwelling Catheter # Voids 2 - Labs CBC & Chem 7: 09/26/23 08:23 09/26/23 08:23 Labs: Abnormal Lab Results - Last 24 Hours (Table) 09/23/23 09/25/23 09/26/23 Range/Units 14:46 13:20 04:10 WBC (3.8-10.6) k/uL RBC (3.80-5.40) m/uL Hgb (11.4-16.0) gm/dL Hct (34.0-46.0) % RDW (11.5-15.5) % Neutrophils # (Manual) (1.3-7.7) k/uL Lymphocytes # (Manual) (1.0-4.8) k/uL Metamyelocytes # (Man) (0) k/uL Nucleated RBCs (0-0) /100 WBC PT 14.8 H (10.0-12.5) sec INR 1.4 H (<1.2) Sodium (137-145) mmol/L BUN (7-17) mg/dL Creatinine (0.52-1.04) mg/dL Glucose (74-99) mg/dL Creatine Kinase 25 L (30-135) U/L Crossmatch See Detail 09/26/23 09/26/23 Range/Units 08:23 08:23 WBC 15.4 H (3.8-10.6) k/uL RBC 2.85 L (3.80-5.40) m/uL Hgb 8.6 L (11.4-16.0) gm/dL Hct 26.9 L (34.0-46.0) % RDW 19.7 H (11.5-15.5) % Neutrophils # (Manual) 14.78 H (1.3-7.7) k/uL Lymphocytes # (Manual) 0.31 L (1.0-4.8) k/uL Metamyelocytes # (Man) 0.15 H (0) k/uL Nucleated RBCs 2 H (0-0) /100 WBC PT (10.0-12.5) sec INR (<1.2) Sodium 135 L (137-145) mmol/L BUN 54 H (7-17) mg/dL Creatinine 2.53 H (0.52-1.04) mg/dL Glucose 156 H (74-99) mg/dL Creatine Kinase (30-135) U/L Crossmatch Microbiology - Last 24 Hours (Table) 09/23/23 18:51 Gram Stain - Preliminary Other - Other Wound Culture - Preliminary Enterococcus faecium VRE Enterococcus faecalis VRE 09/23/23 18:51 Anaerobic Culture - Final Abdominal Fluid Bacteroides thetaiotaomicron Bacteroides fragilis Assessment and Plan Assessment: 1. 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 Also component of cardiorenal syndrome. renal function stable. Creatinine was 1.9 dated September 07, 2023. Patient was hemodialysis dependent but was recently taken off hemodialysis. She still has permacath in place. Ultrasound from June 2023 showed no evidence of hydronephrosis. Creatinine stable today 2.5 likely related to anemia. 2. ANCA vasculitis maintained on prednisone. Status post 2 doses of IV rituximab 1 g completed August 2023. Maintained on 30 mg of prednisone outpatient. 3. Acute on chronic systolic CHF ejection fraction of 25 to 30% with severe pulmonary hypertension and moderate tricuspid regurgitation. 4. Acute hypoxic respiratory failure secondary to COPD exacerbation as well as CHF. 5. History of PE maintained on anticoagulation. 6. Anemia. high ferritin noted. 7. No peritoneum status post diagnostic laparoscopy, sigmoid colectomy with end colostomy 09/23/2023. Plan: Continue to hold Lasix for now. Continue Farxiga. Prednisone along with Bactrim upon discharge. Currently on IV Solu-Medrol and antibiotics. Will DC permacath this admission if renal function remains stable on Wednesday. Continue to monitor renal function and urine output. Hold off on IV iron at this time. currently on clear liquid diet. Transfuse for Hb <7.0
[2023-09-26] MEDS: DAPTOmycin 350 MG in SODIUM CHLORIDE 0.9% 50 ML IVPB SCH (14:01)
--- NOTE | 2023-09-26 20:32 | P.PN ---
Subjective Progress Note Date: 09/25/23 Principal diagnosis: Reason for follow-up is perforated diverticulitis Patient is a 63-year-old female past medical history significant for COPD vasculitis history of acute kidney injury secondary to ANCA vasculitis presenting to the hospital with shortness of breath and abdominal pain has been diagnosed with a perforated sigmoid diverticulitis in this patient who is status post diagnostic laparoscopic sigmoid colectomy with end colostomy. On today's evaluation that is 09/25/2023, Patient is afebrile this morning patient denies having any chest pain shortness of breath or cough, the patient is breathing comfortably and currently on room air, patient denies any worsening abdominal pain no diarrhea some nausea but no vomiting. Patient white count is slightly of 90,000. Hemoglobin of 6.7 creatinine is 2.4 abdominal culture with Enterococcus faecium and faecalis Objective - Vital Signs Vital signs: Vital Signs Temp 98.0 F 09/25/23 13:54 Pulse 82 09/25/23 13:54 Resp 18 09/25/23 13:54 BP 133/83 09/25/23 13:54 Pulse Ox 98 09/25/23 13:54 FiO2 35 09/21/23 20:21 Intake & Output 09/24/23 09/25/23 09/25/23 18:59 06:59 18:59 Intake Total 1470 Output Total 405 300 Balance 1065 -300 Weight 64 kg Intake: IV 830 0.9 230 Lactated Ringers 1,000 ml 600 @ 75 mls/hr IV .[id number] [facility] Rx#:[id number] Oral 640 Output: Drainage 60 SILVIO Abdomen 60 Urine 345 300 Other: Voiding Method Indwelling Catheter Indwelling Catheter Indwelling Catheter - Exam GENERAL DESCRIPTION: Middle-aged female lying in bed in no distress RESPIRATORY SYSTEM: Unlabored breathing , decreased breath sounds at bases HEART: S1 S2 regular rate and rhythm , ABDOMEN: Soft , mild tenderness EXTREMITIES: No edema feet - Labs CBC & Chem 7: 09/25/23 05:45 09/25/23 05:45 Labs: Abnormal Lab Results - Last 24 Hours (Table) 09/23/23 09/25/23 09/25/23 Range/Units 14:46 01:09 05:45 WBC (4.50-10.00) X 10*3/uL RBC (4.10-5.20) X 10*6/uL Hgb (12.0-15.0) g/dL Hct (37.2-46.3) % MCV (80.0-97.0) FL MCHC (32.0-37.0) g/dL RDW (11.5-14.5) % Immature Gran # (0.00-0.04) X 10*3/uL Neutrophils # (1.80-7.70) X 10*3/uL Lymphocytes # (0.90-5.00) X 10*3/uL Monocytes # (0.20-1.00) X 10*3/uL Eosinophils # (0.04-0.35) X 10*3/uL NRBC/100 WBC Diff (0.00-0.01) X 10*3/uL INR 1.2 H (<1.2) Anion Gap (4.00-12.00) mmol/L BUN (9.0-27.0) mg/dL Creatinine (0.6-1.5) mg/dL Est GFR (CKD-EPI) (>=60) BUN/Creatinine Ratio (12.00-20.00) Ratio Glucose (70-110) mg/dL POC Glucose (mg/dL) 143 H (70-110) mg/dL Total Bilirubin (0.3-1.2) mg/dL Creatine Kinase (30-135) U/L Total Protein (6.2-8.2) g/dL Albumin (3.8-4.9) g/dL Crossmatch See Detail 09/25/23 09/25/23 09/25/23 Range/Units 05:45 05:45 06:02 WBC 19.11 H (4.50-10.00) X 10*3/uL RBC 2.29 L (4.10-5.20) X 10*6/uL Hgb 6.7 A* (12.0-15.0) g/dL Hct 22.4 L (37.2-46.3) % MCV 97.8 H (80.0-97.0) FL MCHC 29.9 L (32.0-37.0) g/dL RDW 20.2 H (11.5-14.5) % Immature Gran # 0.36 H (0.00-0.04) X 10*3/uL Neutrophils # 18.20 H (1.80-7.70) X 10*3/uL Lymphocytes # 0.36 L (0.90-5.00) X 10*3/uL Monocytes # 0.15 L (0.20-1.00) X 10*3/uL Eosinophils # 0 L (0.04-0.35) X 10*3/uL NRBC/100 WBC Diff 0.05 H (0.00-0.01) X 10*3/uL INR (<1.2) Anion Gap 13.90 H (4.00-12.00) mmol/L BUN 51.4 H (9.0-27.0) mg/dL Creatinine 2.4 H (0.6-1.5) mg/dL Est GFR (CKD-EPI) 22 L (>=60) BUN/Creatinine Ratio 21.42 H (12.00-20.00) Ratio Glucose 119 H (70-110) mg/dL POC Glucose (mg/dL) 132 H (70-110) mg/dL Total Bilirubin 0.2 L (0.3-1.2) mg/dL Creatine Kinase (30-135) U/L Total Protein 4.8 L (6.2-8.2) g/dL Albumin 3.0 L (3.8-4.9) g/dL Crossmatch 09/25/23 Range/Units 13:20 WBC (4.50-10.00) X 10*3/uL RBC (4.10-5.20) X 10*6/uL Hgb (12.0-15.0) g/dL Hct (37.2-46.3) % MCV (80.0-97.0) FL MCHC (32.0-37.0) g/dL RDW (11.5-14.5) % Immature Gran # (0.00-0.04) X 10*3/uL Neutrophils # (1.80-7.70) X 10*3/uL Lymphocytes # (0.90-5.00) X 10*3/uL Monocytes # (0.20-1.00) X 10*3/uL Eosinophils # (0.04-0.35) X 10*3/uL NRBC/100 WBC Diff (0.00-0.01) X 10*3/uL INR (<1.2) Anion Gap (4.00-12.00) mmol/L BUN (9.0-27.0) mg/dL Creatinine (0.6-1.5) mg/dL Est GFR (CKD-EPI) (>=60) BUN/Creatinine Ratio (12.00-20.00) Ratio Glucose (70-110) mg/dL POC Glucose (mg/dL) (70-110) mg/dL Total Bilirubin (0.3-1.2) mg/dL Creatine Kinase 25 L (30-135) U/L Total Protein (6.2-8.2) g/dL Albumin (3.8-4.9) g/dL Crossmatch Microbiology - Last 24 Hours (Table) 09/23/23 18:51 Gram Stain - Preliminary Other - Other Wound Culture - Preliminary Enterococcus faecium Enterococcus faecalis 09/21/23 14:20 Blood Culture - Preliminary Blood 09/21/23 14:05 Blood Culture - Preliminary Blood Assessment and Plan (1) Perforation of sigmoid colon due to diverticulitis Current Visit: Yes Status: Acute Code(s): K57.20 - DVTRCLI OF LG INT W PERFORATION AND ABSCESS W/O BLEEDING SNOMED Code(s): 2693760977884504 (2) Peritonitis Current Visit: Yes Status: Acute Code(s): K65.9 - PERITONITIS, UNSPECIFIED SNOMED Code(s): 12730575 (3) Leukocytosis Current Visit: No Status: Acute Code(s): D72.829 - ELEVATED WHITE BLOOD CELL COUNT, UNSPECIFIED SNOMED Code(s): 150093518 (4) Sepsis Current Visit: Yes Status: Acute Code(s): A41.9 - SEPSIS, UNSPECIFIED ORGANISM SNOMED Code(s): 78781301 Plan: 1patient presented to the hospital with sepsis in this patient who did have a fever tachycardia meeting criteria for SIRS source is likely perforated diverticulitis with peritonitis and need to cover for the enteric gram-negative both aerobes and anaerobes patient also have complaint of increasing shortness of breath and cough CT shows bilateral lower lobe consolidation, possible pneumonia 2-patient is status post diagnostic laparoscopy sigmoid resection and end colostomy abdominal culture currently growing Enterococcus faecium and faecalis 3-patient to continue with Zosyn however we will add daptomycin to cover for Enterococcus pending sensitivity Dictation was produced using [employer] dictation software. please excuse any grammatical, word or spelling errors. Time with Patient: Less than 30
[2023-09-26 21:14] LABS: ABG Base Excess 2.6 mmol/L; ABG HCO3 28 mmol/L (21-25); ABG Oxygen Saturation 93.1 % (94-97); ABG PCO2 46 mmHg (35-45); ABG PH 7.39 (7.35-7.45); ABG PO2 66 mmHg (83-108); ABG TCO2 29 mmol/L (19-24); Allen Test Performed? Yes
--- NOTE | 2023-09-26 21:19 | XR ---
EXAMINATION TYPE: XR chest 1V portable DATE OF EXAM: 09/26/2023 9:12 PM CLINICAL INDICATION:Female, 63 years old with history of sob, wheezing; [facility] COMPARISON: Chest radiographs from 09/22/2023 TECHNIQUE: XR chest 1V portable Frontal view of the chest. FINDINGS: Lungs/Pleura: Prominent interstitial lung markings are seen scattered throughout the lungs. These quinton ear similar to prior. No evidence of focal consolidation, pneumothorax or pleural effusion. Pulmonary vascularity: Unremarkable. Heart/mediastinum: Cardiomediastinal silhouette is unremarkable. Musculoskeletal: No acute osseous pathology. Other findings: None Lines/Tubes: Right internal jugular central venous catheter with distal tip at the cavoatrial junction. IMPRESSION: Interstitial opacities similar to prior..
[2023-09-26 22:31] LABS: Anisocytosis Moderate; Basophils % (A) 0 %; Eosinophils # (A) 0.1 k/uL (0-0.7); Eosinophils % (A) 0 %; HCT 26.1 % (34.0-46.0); HGB 8.2 gm/dL (11.4-16.0); Hypochromasia Slight; Lymphocytes # (A) 0.5 k/uL (1.0-4.8); Lymphocytes % (A) 2 %; MCH 30.8 pg (25.0-35.0); MCHC 31.3 g/dL (31.0-37.0); MCV 98.3 fL (80.0-100.0); Macrocytosis Slight; Mean Platelet Volume 9.1; Monocytes # (A) 0.4 k/uL (0-1.0); Monocytes % (A) 2 %; Neutrophils # (A) 17.8 k/uL (1.3-7.7); Neutrophils % (A) 95 %; Platelet Count 211 k/uL (150-450); RBC 2.66 m/uL (3.80-5.40); RDW 20.3 % (11.5-15.5)
[2023-09-26 22:35] LABS: ALT 25 U/L (4-34); AST 37 U/L (14-36); African American GFR (CKD) 24 (>60 ml/min/1.73 sqM); Albumin 2.6 g/dL (3.5-5.0); Albumin/Globulin Ratio 1.3; Alkaline Phosphatase 79 U/L (38-126); Anion Gap 9 mmol/L; Blood Urea Nitrogen 59 mg/dL (7-17); Calcium 8.8 mg/dL (8.4-10.2); Carbon Dioxide 24 mmol/L (22-30); Chloride 101 mmol/L (98-107); Glucose 151 mg/dL (74-99); Non-African American GFR(CKD) 20 (>60 ml/min/1.73 sqM); Sodium 134 mmol/L (137-145); Total Bilirubin 0.5 mg/dL (0.2-1.3); Total Protein 4.6 g/dL (6.3-8.2)
[2023-09-26 22:49] LABS: Band Neutrophils % 4 %; Lymphocytes # (M) 0.37 k/uL (1.0-4.8); Myelocytes # (M) 0.19 k/uL (0); Myelocytes % 1 %; Neutrophils % (M) 93 %; Nucleated Red Blood Cells 1 /100 WBC (0-0); Total Cells Counted 200
[2023-09-26 22:50] LABS: WBC 18.5 k/uL (3.8-10.6)
[2023-09-26 22:51] LABS: Toxic Granulation Present
[2023-09-26] MEDS: FLUCONAZOLE 100 MG TAB PO SCH (23:05)
[2023-09-27 05:26] LABS: Anisocytosis Moderate; HCT 26.8 % (34.0-46.0); HGB 8.7 gm/dL (11.4-16.0); Hypochromasia Slight; MCH 31.6 pg (25.0-35.0); MCHC 32.6 g/dL (31.0-37.0); MCV 97.1 fL (80.0-100.0); Macrocytosis Slight; Mean Platelet Volume 8.7; Platelet Count 227 k/uL (150-450); RBC 2.75 m/uL (3.80-5.40); RDW 20.3 % (11.5-15.5)
[2023-09-27 05:50] LABS: Band Neutrophils % 2 %; Myelocytes % 1 %; Neutrophils % (M) 93 %; Nucleated Red Blood Cells 2 /100 WBC (0-0); Total Cells Counted 200
[2023-09-27 05:51] LABS: WBC 20.1 k/uL (3.8-10.6)
[2023-09-27 05:52] LABS: Anisocytosis (M) Present; Ovalocytes Present; Poikilocytosis (M) Present; Polychromasia Present; RBC Fragments Present; Toxic Granulation Present
[2023-09-27 05:57] LABS: ALT 25 U/L (4-34); AST 41 U/L (14-36); African American GFR (CKD) 24 (>60 ml/min/1.73 sqM); Albumin 2.7 g/dL (3.5-5.0); Albumin/Globulin Ratio 1.4; Alkaline Phosphatase 82 U/L (38-126); Anion Gap 9 mmol/L; Blood Urea Nitrogen 63 mg/dL (7-17); Carbon Dioxide 23 mmol/L (22-30); Chloride 103 mmol/L (98-107); Glucose 124 mg/dL (74-99); Non-African American GFR(CKD) 20 (>60 ml/min/1.73 sqM); Potassium 5.8 mmol/L (3.5-5.1); Sodium 135 mmol/L (137-145); Total Bilirubin 0.5 mg/dL (0.2-1.3); Total Protein 4.7 g/dL (6.3-8.2)
[2023-09-27] MEDS: FUROSEMIDE 10 MG/ML 4 ML VIAL IV STA (09:09)
--- NOTE | 2023-09-27 11:19 | P.PN ---
Subjective Progress Note Date: 09/27/23 This is a 63-year-old female patient with a known history of chronic obstructive pulmonary disease, former smoker, previous acute kidney injury requiring dialysis that she completed approximately 2 weeks ago. She presented here to the emergency room today with increasing shortness of breath. Symptoms started just this morning. No fever or chills. No cough or congestion. Mainly dyspnea on minimal exertion. Chest x-ray reveals evidence of COPD with superimposed interstitial opacities, possible pulmonary edema versus atypical pneumonia. White count 27.9. Hemoglobin 10.5. Platelets 294. INR 1.3. Sodium 136. Potassium 4.3. Bicarb 30. BUN 47. Creatinine 1.56. Glucose 196. Troponin 0.205. proBNP 60,000. The patient is seen in consultation in the emergency department. She is currently sitting up on the stretcher. Awake and alert. On BiPAP 14/5 and 40% FiO2 to maintain O2 saturations in the 90s. Been initiated on a heparin drip. Initiated on antibiotics, bronchodilators and steroids. The patient is seen today September 22, 2023 in follow-up in the emergency department. She is awake and alert in no acute distress. Breathing easier today compared to yesterday. She is maintaining good O2 saturations in the 90s on 2 L/min per nasal cannula. She has been off the BiPAP. She remains on a heparin drip. Peak troponin 0.521. She is continued on DuoNeb inhalations, Symbicort, Solu-Medrol. She is continued on ceftriaxone. Chest x-ray shows diffuse interstitial opacities with slight improvement. The patient is seen today September 27, 2023 in follow-up on the regular medical [facility] or. She is currently sitting up in a chair. Awake and alert in no acute distress. She is still receiving oxygen at 6 L/min per nasal cannula. Lactated Ringer's at 75 MLS per hour. She did have an episode of shortness of breath and anxiety last evening. She states she is feeling better today. X-ray reveals evidence of fluid volume overload. No focal consolidation, pneumothorax or pleural effusion. Right internal jugular catheter in place. She is status post 1 unit of packed red blood cells and 2 units of fresh frozen plasma this admission. Abdominal fluid cultures were positive for bacteroids. Wound culture positive for Enterococcus faecium VRE, Enterococcus faecalis VRE and Cha. White count 20.1. Hemoglobin 8.7. Platelets 227. Sodium 135. Potassium 5.8. Bicarb 23. BUN 63. Creatinine 2.46. Glucose 124. She is continued on DuoNeb inhalations, Symbicort, daptomycin and Zosyn. Lovenox for DVT prophylaxis. Objective - Vital Signs Vital signs: Vital Signs Temp 97.8 F 09/27/23 07:13 Pulse 86 09/27/23 09:34 Resp 18 09/27/23 07:13 BP 149/99 09/27/23 07:13 Pulse Ox 90 L 09/27/23 07:13 FiO2 35 09/21/23 20:21 Intake & Output 09/26/23 09/27/23 09/27/23 18:59 06:59 18:59 Output Total 405 620 Balance -405 -620 Weight 63.5 kg Output: Drainage 105 20 SILVIO Abdomen 105 20 Urine 300 600 Other: Voiding Method Indwelling Catheter Indwelling Catheter - Exam GENERAL EXAM: Alert, pleasant 63-year-old female, sitting up in a chair, on 6 L/min per nasal cannula, in no apparent distress. HEAD: Normocephalic. EYES: Normal reaction of pupils, equal size. NOSE: Clear with pink turbinates. THROAT: No erythema or exudates. NECK: No masses, no JVD. CHEST: No chest wall deformity. LUNGS: Equal air entry with bibasilar crackles, diminished. CVS: S1 and S2 normal with no audible murmur, regular rhythm. ABDOMEN: No hepatosplenomegaly, normal bowel sounds, no guarding or rigidity. SPINE: No scoliosis or deformity SKIN: No rashes CENTRAL NERVOUS SYSTEM: No focal deficits, tone is normal in all 4 extremities. EXTREMITIES: There is no peripheral edema. No clubbing, no cyanosis. Peripheral pulses are intact. - Labs CBC & Chem 7: 09/27/23 04:54 09/27/23 04:54 Labs: Abnormal Lab Results - Last 24 Hours (Table) 09/26/23 09/26/23 09/26/23 Range/Units 20:59 21:27 21:27 WBC 18.5 H (3.8-10.6) k/uL RBC 2.66 L (3.80-5.40) m/uL Hgb 8.2 L (11.4-16.0) gm/dL Hct 26.1 L (34.0-46.0) % RDW 20.3 H (11.5-15.5) % Neutrophils # 17.8 H (1.3-7.7) k/uL Neutrophils # (Manual) 17.90 H (1.3-7.7) k/uL Lymphocytes # 0.5 L (1.0-4.8) k/uL Lymphocytes # (Manual) 0.37 L (1.0-4.8) k/uL Myelocytes # (Manual) 0.19 H (0) k/uL Nucleated RBCs 1 H (0-0) /100 WBC ABG pCO2 46 H (35-45) mmHg ABG pO2 66 L (83-108) mmHg ABG HCO3 28 H (21-25) mmol/L ABG Total CO2 29 H (19-24) mmol/L ABG O2 Saturation 93.1 L (94-97) % Sodium 134 L (137-145) mmol/L Potassium (3.5-5.1) mmol/L BUN 59 H (7-17) mg/dL Creatinine 2.45 H (0.52-1.04) mg/dL Glucose 151 H (74-99) mg/dL AST 37 H (14-36) U/L Total Protein 4.6 L (6.3-8.2) g/dL Albumin 2.6 L (3.5-5.0) g/dL 09/27/23 09/27/23 Range/Units 04:54 04:54 WBC 20.1 H (3.8-10.6) k/uL RBC 2.75 L (3.80-5.40) m/uL Hgb 8.7 L (11.4-16.0) gm/dL Hct 26.8 L (34.0-46.0) % RDW 20.3 H (11.5-15.5) % Neutrophils # (1.3-7.7) k/uL Neutrophils # (Manual) 19.00 H (1.3-7.7) k/uL Lymphocytes # (1.0-4.8) k/uL Lymphocytes # (Manual) 0.60 L (1.0-4.8) k/uL Myelocytes # (Manual) 0.20 H (0) k/uL Nucleated RBCs 2 H (0-0) /100 WBC ABG pCO2 (35-45) mmHg ABG pO2 (83-108) mmHg ABG HCO3 (21-25) mmol/L ABG Total CO2 (19-24) mmol/L ABG O2 Saturation (94-97) % Sodium 135 L (137-145) mmol/L Potassium 5.8 H (3.5-5.1) mmol/L BUN 63 H (7-17) mg/dL Creatinine 2.46 H (0.52-1.04) mg/dL Glucose 124 H (74-99) mg/dL AST 41 H (14-36) U/L Total Protein 4.7 L (6.3-8.2) g/dL Albumin 2.7 L (3.5-5.0) g/dL Microbiology - Last 24 Hours (Table) 09/21/23 14:20 Blood Culture - Final Blood 09/21/23 14:05 Blood Culture - Final Blood 09/23/23 18:51 Gram Stain - Final Other - Other Wound Culture - Final Enterococcus faecium VRE Enterococcus faecalis VRE Cha albicans Assessment and Plan Assessment: Acute hypoxemic respiratory failure secondary to an acute exacerbation of chronic obstructive pulmonary disease, acute systolic congestive heart failure Status post exploratory laparotomy, sigmoid colectomy, and sigmoid colostomy for ruptured sigmoid diverticulum. Postoperative day #4. Cultures positive for bacteroids. Enterococcus faecium VRE, Enterococcus faecalis VRE, Cha. Currently on daptomycin and Zosyn Acute kidney injury Leukocytosis Severe cardiomyopathy with an ejection fraction of 25-30 % History of chronic obstructive pulmonary disease Chronic tobacco dependence Question of vasculitis and was to have had a kidney biopsy in June 2023 unclear if this was done History of acute kidney injury requiring temporary hemodialysis, states completed 2 weeks ago History of PE/DVT, on warfarin subtherapeutic INR at 1.3 Plan: The patient was seen and evaluated Chest x-ray, labs and medications reviewed Discontinue Symbicort Add Pulmicort and Perforomist inhalations Increase Solu-Medrol to 60mg every 6 hours Give Lasix 40 mg IVP x 1 Decrease IV fluids to KVO Continue daptomycin and Zosyn Titrate the FiO2 as tolerated This patient was seen independently by the pulmonary nurse practitioner addres sing pulmonary issues I have personally seen and examined the patient, performed the documentation and the assessment and plan as written. Number of minutes spent on the visit: 23.
[2023-09-27] MEDS: methylPREDNISolone SOD SUCCI 40 MG/ML 1 ML VIAL IV SCH (13:04)
--- NOTE | 2023-09-27 13:13 | P.PN ---
Subjective patient is seen for follow-up for acute kidney injury. History of hemodialysis dependent acute kidney injury with recovery of renal function and patient has been off of dialysis for about 3 weeks now. Right IJ permacath remains in place and was scheduled to have been discontinued as outpatient. Admitted with shortness of breath with volume overload. Patient has been diuresed and diuretics were held for the last few days. This morning patient is complaining of shortness of breath. No complaints of chest pains. Serum creatinine staying at about 2.4 mg/dL. 24 hour urine output at 1.8 L. Objective - Vital Signs Vital signs: Vital Signs Temp 97.8 F 09/27/23 07:13 Pulse 82 09/27/23 12:12 Resp 18 09/27/23 11:33 BP 149/99 09/27/23 07:13 Pulse Ox 90 L 09/27/23 07:13 FiO2 35 09/21/23 20:21 Intake & Output 09/26/23 09/27/23 09/27/23 18:59 06:59 18:59 Intake Total 200 Output Total 405 620 Balance -405 -620 200 Weight 63.5 kg Intake: Oral 200 Output: Drainage 105 20 SILVIO Abdomen 105 20 Urine 300 600 Other: Voiding Method Indwelling Catheter Indwelling Catheter Indwelling Catheter - Exam patient is awake, comfortable, mild respiratory distress. Examination of the heart S1 and S2 Examination of the lungs bilateral breath sounds are heard Abdomen is soft nontender Examination of lower extremities shows trace edema. [employer] IN C[employer] exam grossly intact - Labs CBC & Chem 7: 09/27/23 04:54 09/27/23 04:54 Labs: Abnormal Lab Results - Last 24 Hours (Table) 09/26/23 09/26/23 09/26/23 Range/Units 20:59 21:27 21:27 WBC 18.5 H (3.8-10.6) k/uL RBC 2.66 L (3.80-5.40) m/uL Hgb 8.2 L (11.4-16.0) gm/dL Hct 26.1 L (34.0-46.0) % RDW 20.3 H (11.5-15.5) % Neutrophils # 17.8 H (1.3-7.7) k/uL Neutrophils # (Manual) 17.90 H (1.3-7.7) k/uL Lymphocytes # 0.5 L (1.0-4.8) k/uL Lymphocytes # (Manual) 0.37 L (1.0-4.8) k/uL Myelocytes # (Manual) 0.19 H (0) k/uL Nucleated RBCs 1 H (0-0) /100 WBC ABG pCO2 46 H (35-45) mmHg ABG pO2 66 L (83-108) mmHg ABG HCO3 28 H (21-25) mmol/L ABG Total CO2 29 H (19-24) mmol/L ABG O2 Saturation 93.1 L (94-97) % Sodium 134 L (137-145) mmol/L Potassium (3.5-5.1) mmol/L BUN 59 H (7-17) mg/dL Creatinine 2.45 H (0.52-1.04) mg/dL Glucose 151 H (74-99) mg/dL AST 37 H (14-36) U/L Total Protein 4.6 L (6.3-8.2) g/dL Albumin 2.6 L (3.5-5.0) g/dL 09/27/23 09/27/23 Range/Units 04:54 04:54 WBC 20.1 H (3.8-10.6) k/uL RBC 2.75 L (3.80-5.40) m/uL Hgb 8.7 L (11.4-16.0) gm/dL Hct 26.8 L (34.0-46.0) % RDW 20.3 H (11.5-15.5) % Neutrophils # (1.3-7.7) k/uL Neutrophils # (Manual) 19.00 H (1.3-7.7) k/uL Lymphocytes # (1.0-4.8) k/uL Lymphocytes # (Manual) 0.60 L (1.0-4.8) k/uL Myelocytes # (Manual) 0.20 H (0) k/uL Nucleated RBCs 2 H (0-0) /100 WBC ABG pCO2 (35-45) mmHg ABG pO2 (83-108) mmHg ABG HCO3 (21-25) mmol/L ABG Total CO2 (19-24) mmol/L ABG O2 Saturation (94-97) % Sodium 135 L (137-145) mmol/L Potassium 5.8 H (3.5-5.1) mmol/L BUN 63 H (7-17) mg/dL Creatinine 2.46 H (0.52-1.04) mg/dL Glucose 124 H (74-99) mg/dL AST 41 H (14-36) U/L Total Protein 4.7 L (6.3-8.2) g/dL Albumin 2.7 L (3.5-5.0) g/dL Microbiology - Last 24 Hours (Table) 09/21/23 14:20 Blood Culture - Final Blood 09/21/23 14:05 Blood Culture - Final Blood 09/23/23 18:51 Gram Stain - Final Other - Other Wound Culture - Final Enterococcus faecium VRE Enterococcus faecalis VRE Cha albicans Assessment and Plan Assessment: 1. 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 Also component of cardiorenal syndrome. renal function stable. Creatinine was 1.9 dated September 07, 2023. Patient was hemodialysis dependent but was recently taken off hemodialysis. She still has permacath in place. Ultrasound from June 2023 showed no evidence of hydronephrosis. Creatinine stable today 2.4 likely related to anemia and cardiorenal syndrome. Blood pressure has not been low. 2. ANCA vasculitis maintained on prednisone. Status post 2 doses of IV rituximab 1 g completed August 2023. Maintained on 30 mg of prednisone outpatient. 3. Acute on chronic systolic CHF ejection fraction of 25 to 30% with severe pulmonary hypertension and moderate tricuspid regurgitation. 4. Acute hypoxic respiratory failure secondary to COPD exacerbation as well as CHF. 5. History of PE maintained on anticoagulation. 6. Anemia. high ferritin noted. 7. Pneumoperitoneum status post diagnostic laparoscopy, sigmoid colectomy with end colostomy 09/23/2023. Plan: I will have the hemodialysis nurse flush the catheter today. Agree with restarting diuretics. Repeat chest x-ray in a.m. Repeat labs in a.m.
--- NOTE | 2023-09-27 13:16 | P.PN ---
Subjective Progress Note Date: 09/26/23 Principal diagnosis: Reason for follow-up is perforated diverticulitis Patient is a 63-year-old female past medical history significant for COPD vasculitis history of acute kidney injury secondary to ANCA vasculitis presenting to the hospital with shortness of breath and abdominal pain has been diagnosed with a perforated sigmoid diverticulitis in this patient who is status post diagnostic laparoscopic sigmoid colectomy with end colostomy. On today's evaluation that is 09/26/2023,the patient denies any fever or any chills, patient is breathing comfortably on room air, the patient denies chest pain shortness of breath and no significant cough, patient abdominal pain has decreased intensity no nausea no vomiting. Patient white count is down to 15.4 creatinine is 2.53 abdominal cultures growing Enterococcus faecium and faecalis VRE. Objective - Vital Signs Vital signs: Vital Signs Temp 98.3 F 09/26/23 20:00 Pulse 93 09/26/23 20:00 Resp 20 09/26/23 20:00 BP 150/92 09/26/23 20:00 Pulse Ox 90 L 09/26/23 20:00 FiO2 35 09/21/23 20:21 Intake & Output 09/26/23 09/26/23 09/27/23 06:59 18:59 06:59 Output Total 585 405 Balance -585 -405 Weight 60 kg Output: Drainage 35 105 SILVIO Abdomen 35 105 Urine 550 300 Other: Voiding Method Indwelling Catheter Indwelling Catheter - Exam GENERAL DESCRIPTION: Middle-aged female lying in bed in no distress RESPIRATORY SYSTEM: Unlabored breathing , decreased breath sounds at bases HEART: S1 S2 regular rate and rhythm , ABDOMEN: Soft , mild tenderness EXTREMITIES: No edema feet - Labs CBC & Chem 7: 09/26/23 08:23 09/26/23 08:23 Labs: Abnormal Lab Results - Last 24 Hours (Table) 09/26/23 09/26/23 09/26/23 Range/Units 04:10 08:23 08:23 WBC 15.4 H (3.8-10.6) k/uL RBC 2.85 L (3.80-5.40) m/uL Hgb 8.6 L (11.4-16.0) gm/dL Hct 26.9 L (34.0-46.0) % RDW 19.7 H (11.5-15.5) % Neutrophils # (Manual) 14.78 H (1.3-7.7) k/uL Lymphocytes # (Manual) 0.31 L (1.0-4.8) k/uL Metamyelocytes # (Man) 0.15 H (0) k/uL Nucleated RBCs 2 H (0-0) /100 WBC PT 14.8 H (10.0-12.5) sec INR 1.4 H (<1.2) Sodium 135 L (137-145) mmol/L BUN 54 H (7-17) mg/dL Creatinine 2.53 H (0.52-1.04) mg/dL Glucose 156 H (74-99) mg/dL Microbiology - Last 24 Hours (Table) 09/23/23 18:51 Gram Stain - Final Other - Other Wound Culture - Final Enterococcus faecium VRE Enterococcus faecalis VRE Cha albicans 09/23/23 18:51 Anaerobic Culture - Final Abdominal Fluid Bacteroides thetaiotaomicron Bacteroides fragilis Assessment and Plan (1) Perforation of sigmoid colon due to diverticulitis Current Visit: Yes Status: Acute Code(s): K57.20 - DVTRCLI OF LG INT W PERFORATION AND ABSCESS W/O BLEEDING SNOMED Code(s): 8601946009202395 (2) Peritonitis Current Visit: Yes Status: Acute Code(s): K65.9 - PERITONITIS, UNSPECIFIED SNOMED Code(s): 98057981 (3) Leukocytosis Current Visit: No Status: Acute Code(s): D72.829 - ELEVATED WHITE BLOOD CELL COUNT, UNSPECIFIED SNOMED Code(s): 459951440 (4) Sepsis Current Visit: Yes Status: Acute Code(s): A41.9 - SEPSIS, UNSPECIFIED ORGANISM SNOMED Code(s): 65233349 Plan: 1patient presented to the hospital with sepsis in this patient who did have a fever tachycardia meeting criteria for SIRS source is likely perforated diverticulitis with peritonitis and need to cover for the enteric gram-negative both aerobes and anaerobes patient also have complaint of increasing shortness of breath and cough CT shows bilateral lower lobe consolidation, possible pn eumonia 2-patient is status post diagnostic laparoscopy sigmoid resection and end colostomy abdominal culture currently growing Enterococcus faecium and faecalis 3-patient to continue with Zosyn and daptomycin added to cover for Enterococcus faecium and faecalis both unremarkable VRE also growing Cha we will add Diflucan Dictation was produced using [employer] software. please excuse any grammatical, word or spelling errors.
--- NOTE | 2023-09-27 14:02 | P.PN ---
Subjective Progress Note Date: 09/27/23 CHIEF COMPLAINT: Perforated sigmoid diverticulitis HISTORY OF PRESENT ILLNESS: postop day #4 status post diagnostic laparoscopy with sigmoid colectomy and end colostomy. Patient currently on regular medical floor. She is now on 6 L of oxygen. She did have some bleeding at the incision site. Her dressing was saturated. Nurse did report oozing at the incision site. Hemoglobin 8.7. Patient was tachycardic during the night this has now improved. Nursing staff reports that patient was very anxious at that time. SILVIO drain with 20 mL serosanguineous output. Afebrile. WBC 18.5 up to 20.1 Hgb 8.7 patient reports her pain is controlled. Denies any nausea or vomiting. No stool output. PHYSICAL EXAM: VITAL SIGNS: Reviewed. GENERAL: Well-developed in no acute distress. ABDOMEN: Soft. mildly distended. Colostomy with pale pink stoma. No stool. Incision site dressing pulled back. Large blood clot at the incision. This was removed. No further active bleeding noted on my exam. NEUROLOGIC: Alert and oriented. Cranial nerves II through XII grossly intact. ASSESSMENT: 1. perforated sigmoid diverticulitis PLAN: -Abdominal dressing to be changed. Apply abdominal binder. -Hold Lovenox today -Continue to monitor -Continue antibiotics -GI prophylaxis Protonix and DVT prophylaxis Lovenox Physician Steel Pourer note has been reviewed by physician. Signing provider agrees with the documented findings, assessment, and plan of care. Objective - Vital Signs Vital signs: Vital Signs Temp 97.8 F 09/27/23 07:13 Pulse 91 09/27/23 11:33 Resp 18 09/27/23 11:33 BP 149/99 09/27/23 07:13 Pulse Ox 90 L 09/27/23 07:13 FiO2 35 09/21/23 20:21 Intake & Output 09/26/23 09/27/23 09/27/23 18:59 06:59 18:59 Output Total 405 620 Balance -405 -620 Weight 63.5 kg Output: Drainage 105 20 SILVIO Abdomen 105 20 Urine 300 600 Other: Voiding Method Indwelling Catheter Indwelling Catheter Indwelling Catheter - Labs CBC & Chem 7: 09/27/23 04:54 09/27/23 04:54 Labs: Abnormal Lab Results - Last 24 Hours (Table) 09/26/23 09/26/23 09/26/23 Range/Units 20:59 21:27 21:27 WBC 18.5 H (3.8-10.6) k/uL RBC 2.66 L (3.80-5.40) m/uL Hgb 8.2 L (11.4-16.0) gm/dL Hct 26.1 L (34.0-46.0) % RDW 20.3 H (11.5-15.5) % Neutrophils # 17.8 H (1.3-7.7) k/uL Neutrophils # (Manual) 17.90 H (1.3-7.7) k/uL Lymphocytes # 0.5 L (1.0-4.8) k/uL Lymphocytes # (Manual) 0.37 L (1.0-4.8) k/uL Myelocytes # (Manual) 0.19 H (0) k/uL Nucleated RBCs 1 H (0-0) /100 WBC ABG pCO2 46 H (35-45) mmHg ABG pO2 66 L (83-108) mmHg ABG HCO3 28 H (21-25) mmol/L ABG Total CO2 29 H (19-24) mmol/L ABG O2 Saturation 93.1 L (94-97) % Sodium 134 L (137-145) mmol/L Potassium (3.5-5.1) mmol/L BUN 59 H (7-17) mg/dL Creatinine 2.45 H (0.52-1.04) mg/dL Glucose 151 H (74-99) mg/dL AST 37 H (14-36) U/L Total Protein 4.6 L (6.3-8.2) g/dL Albumin 2.6 L (3.5-5.0) g/dL 09/27/23 09/27/23 Range/Units 04:54 04:54 WBC 20.1 H (3.8-10.6) k/uL RBC 2.75 L (3.80-5.40) m/uL Hgb 8.7 L (11.4-16.0) gm/dL Hct 26.8 L (34.0-46.0) % RDW 20.3 H (11.5-15.5) % Neutrophils # (1.3-7.7) k/uL Neutrophils # (Manual) 19.00 H (1.3-7.7) k/uL Lymphocytes # (1.0-4.8) k/uL Lymphocytes # (Manual) 0.60 L (1.0-4.8) k/uL Myelocytes # (Manual) 0.20 H (0) k/uL Nucleated RBCs 2 H (0-0) /100 WBC ABG pCO2 (35-45) mmHg ABG pO2 (83-108) mmHg ABG HCO3 (21-25) mmol/L ABG Total CO2 (19-24) mmol/L ABG O2 Saturation (94-97) % Sodium 135 L (137-145) mmol/L Potassium 5.8 H (3.5-5.1) mmol/L BUN 63 H (7-17) mg/dL Creatinine 2.46 H (0.52-1.04) mg/dL Glucose 124 H (74-99) mg/dL AST 41 H (14-36) U/L Total Protein 4.7 L (6.3-8.2) g/dL Albumin 2.7 L (3.5-5.0) g/dL Microbiology - Last 24 Hours (Table) 09/21/23 14:20 Blood Culture - Final Blood 09/21/23 14:05 Blood Culture - Final Blood 09/23/23 18:51 Gram Stain - Final Other - Other Wound Culture - Final Enterococcus faecium VRE Enterococcus faecalis VRE Cha albicans
[2023-09-27 15:22] LABS: Anti-Smith Ab Interp Negative (Negative)
--- NOTE | 2023-09-27 16:54 | XR ---
EXAMINATION TYPE: XR chest 1V DATE OF EXAM: 09/27/2023 4:50 PM CLINICAL INDICATION:Female, 63 years old with history of chf; COMPARISON: 09/22/2023 TECHNIQUE: XR chest 1V Frontal view of the chest. FINDINGS: Lungs/Pleura: Right lung blunting of costophrenic angle with pulmonary vascular congestion. There is no evidence of left pleural effusion, focal consolidation, or pneumothorax. Pulmonary vascularity: Unremarkable. Heart/mediastinum: Cardiomediastinal silhouette is unremarkable. Musculoskeletal: No acute osseous pathology. Other findings: None Lines/Tubes: [id number] projecting over the right hemithorax with distal tip at the cavoatrial junction. IMPRESSION: Right pleural effusion with pulmonary vascular congestion. The left lung is relatively clear no evide nce for pleural effusion.
--- NOTE | 2023-09-27 17:31 | P.PN ---
Subjective Progress Note Date: 09/27/23 This is a 63-year-old female patient of Dr. Daniels who presented to the ER with concerns of increased shortness of breath. [place] [facility] [place] but did leave AMA prior to completion of treatment. Patient was alsopatient was also recently admitted recently admitted and transferred to [facility] and transferred to [facility] due to diagnosis of vasculitis and required hemodialysis during the hospital stay patient also had episode of pulmonary embolism in which she was started on Coumadin. Patient recently had hemodialysis catheter DC'd.. Additional medical history includes COPD and ex-smoker. Chest x-ray completed in ER showing COPD with superimposed interstitial opacities possible interstitial pulmonary edema versus atypicalCOPD with superimposed interstitial bases possible interstitial pulmonary edema versus atypical pneumonitis. Lab work revealing BNP level 60,000.. [id number] 0.205, 0.403 and 0.521. Creatinine 1.56 bun 47. White blood cell 27.9 hemoglobin 10.5 . Patient was started on Zithromax and Rocephin. Given dose of IV Lasix. Started on heparin drip for elevated troponins. Cardiology pulmonary and nephrology services consulted. Cardiology pulmonary and nephrology service is consulted. Current vital signs Temp 97.3, heart rate 95, respiratory rate 18, blood pressure 143/88 with a pulse ox of 96% on 2 L. On 09/23/2023 patient was seen and examined on the medical floor she is alert and oriented x 3 in no apparent distress, she started complaining of severe abdominal pain in the bilateral lower quadrants this morning, otherwise she denies any complaints there is no fever or chills no headache or dizziness no chest pain no shortness of breath no cough no nausea or vomiting no diarrhea no blood in the stools no burning with urination no frequency or urgency and no hematuria, CT scan of the abdomen and pelvis without contrast was ordered, will follow closely On 09/24/2023 Patient's alert and oriented 3. Patient is status post diagnostic laparoscopy sigmoid colectomy with end colostomy secondary to perforated sigmoid diverticulitis. Patient is currently postop day 1. Patient was transferred to the intensive care unit postoperatively but has been extubated to 2 L. Patient remains on IV Zosyn. Vertical care, nephrology, surgical, infectious disease service is following. Patient denies chest pain or shortness breath. Patient denies nausea vomiting or diarrhea. Burning or frequency On 09/25/2023 patient was seen and examined on the medical floor, she is alert and oriented x 3 in no apparent distress, there is no fever or chills no headache or dizziness no chest pain no shortness of breath no cough no nausea or vomiting no abdominal pain no diarrhea and no urinary symptoms, patient was noticed by her nurse to have an equal pupils, patient denies any previous knowl edge of abnormal pupil size, CT scan of the brain and neurology consultation will be initiated, hemoglobin today is down to 6.7 and patient will be given 1 unit of red blood cells. On 09/26/2023 patient is alert and oriented x 3. Patient has been tolerating full liquid diet. Patient el on IV Zosyn. Neurology services are following. Current vital signs Temp 98.2, rate 85, respiratory rate 15, blood pressure 151/89 with a pulse ox of 95% on 2 L. Patient denies chest pain or shortness of breath. Patient denies nausea vomiting or diarrhea. Patient denies any urinary burning or frequency. On 09/27/2023 patient was seen and examined on the medical floor, she is alert and oriented x 3 in no distress she denies any symptoms at this time there is no fever or chills, no headache or dizziness no chest pain no shortness of breath no cough no nausea or vomiting no abdominal pain no diarrhea no urinary symptoms Objective - Vital Signs Vital signs: Vital Signs Temp 97.9 F 09/27/23 13:06 Pulse 92 09/27/23 13:06 Resp 17 09/27/23 13:06 BP 143/89 09/27/23 13:06 Pulse Ox 96 09/27/23 13:06 FiO2 35 09/21/23 20:21 Intake & Output 09/26/23 09/27/23 09/27/23 18:59 06:59 18:59 Intake Total 200 Output Total 405 620 Balance -405 -620 200 Weight 63.5 kg Intake: Oral 200 Output: Drainage 105 20 SILVIO Abdomen 105 20 Urine 300 600 Other: Voiding Method Indwelling Catheter Indwelling Catheter Indwelling Catheter - Exam Physical examHead normocephalic Neck supple Lungs diminished bilaterally Heart regular rate and rhythm S1-S2, no rub or gallop Abdomen is soft with mild diffuse tenderness especially in the pelvic area bilaterally no organomegaly no palpable masses Extremities no edema Neuro alert and orientated to 3 - Labs CBC & Chem 7: 09/27/23 04:54 09/27/23 04:54 Labs: Abnormal Lab Results - Last 24 Hours (Table) 09/26/23 09/26/23 09/26/23 Range/Units 20:59 21:27 21:27 WBC 18.5 H (3.8-10.6) k/uL RBC 2.66 L (3.80-5.40) m/uL Hgb 8.2 L (11.4-16.0) gm/dL Hct 26.1 L (34.0-46.0) % RDW 20.3 H (11.5-15.5) % Neutrophils # 17.8 H (1.3-7.7) k/uL Neutrophils # (Manual) 17.90 H (1.3-7.7) k/uL Lymphocytes # 0.5 L (1.0-4.8) k/uL Lymphocytes # (Manual) 0.37 L (1.0-4.8) k/uL Myelocytes # (Manual) 0.19 H (0) k/uL Nucleated RBCs 1 H (0-0) /100 WBC ABG pCO2 46 H (35-45) mmHg ABG pO2 66 L (83-108) mmHg ABG HCO3 28 H (21-25) mmol/L ABG Total CO2 29 H (19-24) mmol/L ABG O2 Saturation 93.1 L (94-97) % Sodium 134 L (137-145) mmol/L Potassium (3.5-5.1) mmol/L BUN 59 H (7-17) mg/dL Creatinine 2.45 H (0.52-1.04) mg/dL Glucose 151 H (74-99) mg/dL AST 37 H (14-36) U/L Total Protein 4.6 L (6.3-8.2) g/dL Albumin 2.6 L (3.5-5.0) g/dL 09/27/23 09/27/23 Range/Units 04:54 04:54 WBC 20.1 H (3.8-10.6) k/uL RBC 2.75 L (3.80-5.40) m/uL Hgb 8.7 L (11.4-16.0) gm/dL Hct 26.8 L (34.0-46.0) % RDW 20.3 H (11.5-15.5) % Neutrophils # (1.3-7.7) k/uL Neutrophils # (Manual) 19.00 H (1.3-7.7) k/uL Lymphocytes # (1.0-4.8) k/uL Lymphocytes # (Manual) 0.60 L (1.0-4.8) k/uL Myelocytes # (Manual) 0.20 H (0) k/uL Nucleated RBCs 2 H (0-0) /100 WBC ABG pCO2 (35-45) mmHg ABG pO2 (83-108) mmHg ABG HCO3 (21-25) mmol/L ABG Total CO2 (19-24) mmol/L ABG O2 Saturation (94-97) % Sodium 135 L (137-145) mmol/L Potassium 5.8 H (3.5-5.1) mmol/L BUN 63 H (7-17) mg/dL Creatinine 2.46 H (0.52-1.04) mg/dL Glucose 124 H (74-99) mg/dL AST 41 H (14-36) U/L Total Protein 4.7 L (6.3-8.2) g/dL Albumin 2.7 L (3.5-5.0) g/dL Microbiology - Last 24 Hours (Table) 09/21/23 14:20 Blood Culture - Final Blood 09/21/23 14:05 Blood Culture - Final Blood 09/23/23 18:51 Gram Stain - Final Other - Other Wound Culture - Final Enterococcus faecium VRE Enterococcus faecalis VRE Cha albicans Assessment and Plan Assessment: Acute hypoxic respiratory failure secondary to acute exacerbation of COPD and acute systolic congestive heart failure Acute exacerbation of COPD. Patient started on IV steroids Acute systolic congestive heart failure Perforated sigmoid diverticulitis status postS igmoid colectomy with end colostomy on 09/23/2023 Elevated troponins Acute on chronic kidney disease Recent diagnosis of vasculitis at [facility] Recent history of PE/DVT maintained on Coumadin History of cardiomyopathy with EF of 15 to 20% History of tobacco abuse recently quit Unequal pupil size. Neurology service is following DVT prophylaxis lovenox. GI prophylaxis Protonix Pulmonary, cardiology and nephrology services consulted Patient started on IV steroids and IV antibiotics The patient was transferred to the intensive care unit postoperatively
[2023-09-27] MEDS: BUDESONIDE 1 MG/2 ML NEBU INHALATION SCH (21:04)
[2023-09-27] MEDS: FORMOTEROL FUMARATE 20 MCG/2 ML NEBU INHALATION SCH (21:04)
--- NOTE | 2023-09-28 09:44 | P.PN ---
Subjective Progress Note Date: 09/27/23 Patient is a 63-year-old female with recent diagnosis of vasculitis (since June 2023) with multiple organ dysfunction. Patient has anisocoria about 1 mm difference between her eyes. No headache, visual disturbance. Patient does not want to proceed with MRI or additional workup. Patient was seen for a follow-up. Patient is sitting comfortably in the recliner. Patient denies any headache any numbness or tingling, denies any strokelike symptoms. Her vision is "good". Patient says that she was diagnosed with vasculitis and [facility]. She had some IV infusion 2 to treat her vasculitis, the name she does not remember says something starts with "Vitr". Patient developed acute renal failure on 06/30/2023 and was started on hemodialysis shortly after. Some of the workup during this hospital visit consisted of: White blood cell on presentation is 27,000 and is trending down. Hemoglobin is 6.7 and today is 8.6 Most recent creatinine is 2.4. It is drastically better compared to 06/29/2023. Per recent TSH on 07/05/2023 is 3.73 which is normal CK level 25 CT head: It is reported as no acute intracranial process. Nonspecific white matter changes, likely secondary due to chronic small vessel ischemic disease. I personally reviewed the CT and I agree with the report. Carotid duplex: Less than 50% stenosis bilateral carotid bifurcation Objective - Vital Signs Vital signs: Vital Signs Temp 97.9 F 09/27/23 13:06 Pulse 92 09/27/23 13:06 Resp 17 09/27/23 13:06 BP 143/89 09/27/23 13:06 Pulse Ox 96 09/27/23 13:06 FiO2 35 09/21/23 20:21 Intake & Output 09/26/23 09/27/23 09/27/23 18:59 06:59 18:59 Intake Total 200 Output Total 405 620 Balance -405 -620 200 Weight 63.5 kg Intake: Oral 200 Output: Drainage 105 20 SILVIO Abdomen 105 20 Urine 300 600 Other: Voiding Method Indwelling Catheter Indwelling Catheter Indwelling Catheter - Exam On examination patient is a late middle aged female, sitting comfortably in the recliner, in no distress. Patient is alert and oriented 4. Speech and language functions are normal. Cranial nerves are significant for very mild anisocoria. The left pupil is slightly larger than the right. Both are reactive. Visual gomez are full on confrontation. Extraocular muscles intact with no nystagmus. Facial strength is normal. Hearing is normal. Tongue protrudes the midline. Sensations are equal. No pronator drift. No ataxia in the upper limbs. - Labs CBC & Chem 7: 09/27/23 04:54 09/27/23 04:54 Labs: Abnormal Lab Results - Last 24 Hours (Table) 09/26/23 09/26/23 09/26/23 Range/Units 20:59 21:27 21:27 WBC 18.5 H (3.8-10.6) k/uL RBC 2.66 L (3.80-5.40) m/uL Hgb 8.2 L (11.4-16.0) gm/dL Hct 26.1 L (34.0-46.0) % RDW 20.3 H (11.5-15.5) % Neutrophils # 17.8 H (1.3-7.7) k/uL Neutrophils # (Manual) 17.90 H (1.3-7.7) k/uL Lymphocytes # 0.5 L (1.0-4.8) k/uL Lymphocytes # (Manual) 0.37 L (1.0-4.8) k/uL Myelocytes # (Manual) 0.19 H (0) k/uL Nucleated RBCs 1 H (0-0) /100 WBC ABG pCO2 46 H (35-45) mmHg ABG pO2 66 L (83-108) mmHg ABG HCO3 28 H (21-25) mmol/L ABG Total CO2 29 H (19-24) mmol/L ABG O2 Saturation 93.1 L (94-97) % Sodium 134 L (137-145) mmol/L Potassium (3.5-5.1) mmol/L BUN 59 H (7-17) mg/dL Creatinine 2.45 H (0.52-1.04) mg/dL Glucose 151 H (74-99) mg/dL AST 37 H (14-36) U/L Total Protein 4.6 L (6.3-8.2) g/dL Albumin 2.6 L (3.5-5.0) g/dL 07/22/24 07/22/24 Range/Units 04:54 04:54 WBC 20.1 H (3.8-10.6) k/uL RBC 2.75 L (3.80-5.40) m/uL Hgb 8.7 L (11.4-16.0) gm/dL Hct 26.8 L (34.0-46.0) % RDW 20.3 H (11.5-15.5) % Neutrophils # (1.3-7.7) k/uL Neutrophils # (Manual) 19.00 H (1.3-7.7) k/uL Lymphocytes # (1.0-4.8) k/uL Lymphocytes # (Manual) 0.60 L (1.0-4.8) k/uL Myelocytes # (Manual) 0.20 H (0) k/uL Nucleated RBCs 2 H (0-0) /100 WBC ABG pCO2 (35-45) mmHg ABG pO2 (83-108) mmHg ABG HCO3 (21-25) mmol/L ABG Total CO2 (19-24) mmol/L ABG O2 Saturation (94-97) % Sodium 135 L (137-145) mmol/L Potassium 5.8 H (3.5-5.1) mmol/L BUN 63 H (7-17) mg/dL Creatinine 2.46 H (0.52-1.04) mg/dL Glucose 124 H (74-99) mg/dL AST 41 H (14-36) U/L Total Protein 4.7 L (6.3-8.2) g/dL Albumin 2.7 L (3.5-5.0) g/dL Microbiology - Last 24 Hours (Table) 09/21/23 14:20 Blood Culture - Final Blood 09/21/23 14:05 Blood Culture - Final Blood 09/23/23 18:51 Gram Stain - Final Other - Other Wound Culture - Final Enterococcus faecium VRE Enterococcus faecalis VRE Cha albicans Assessment and Plan Assessment: This is a 63-year-old woman who was 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 During this admission she was found to have unequal pupils left slightly bigger than the right but she denies of any headache visual disturbance difficulty swallowing. Anisocoria left pupil is 4 mm and the right is 3 mm and both reactive to light and denies any headache or visual disturbance: Unsure exact etiology. Possible physiological since only 1mm difference vs medication iduced ?(on nebulizers) vs ?vasculitis.CT head and carotid duplex are unremarkable. Recent perforated sigmoid diverticulitis status post diagnostic laparoscopy with sigmoid colectomy and end colostomy on 09/23/2023 Recent diagnosis of vasculitis and had kidney biopsy at [facility] in June 2023 Acute kidney injury since June 2023 and patient required temporary dialysis which she completed and kidneys are improving but not back to baseline Anemia Has significant bilateral lower extremity weakness more than upper since June 2023 the patient states her strength is improving and now she is walking with a walker. Cardiomyopathy and ejection fraction of 25 to 30% since she had vasculitis History of recent pulmonary embolism DVT and is on Coumadin History of COPD Ex tobacco user Plan: KATIE negative, SSA/SSB negative, anti-Hurst antibodies negative, TIRE MAKER antibodies negative. The patient is on methylprednisolone 60 mg IV every 6 hours, as per pulmonary team. Patient does not want any further or escalation of work-up for her anisocoria at this time otherwise. Does not want MRI Brain and does not want to pursue with temporal biopsy. I highly doubt giant cell arteritis. Patient is in agreement if has any headache or visual disturbance then will proceed with work-up. Recommend the patient to be evaluated by [employer] as outpatient within 2- 3 weeks. Pulmonary team is on board, ID team is on board, nephrology team is on board and cardiology team is on board Will defer the rest of the medical management to primary and other specialist
[2023-09-28] MEDS: FUROSEMIDE 10 MG/ML 10 ML VIAL IV STA (09:48)
--- NOTE | 2023-09-28 10:20 | P.PN ---
Subjective Progress Note Date: 09/28/23 CHIEF COMPLAINT: Perforated sigmoid diverticulitis HISTORY OF PRESENT ILLNESS: postop day #5 status post diagnostic laparoscopy with sigmoid colectomy and end colostomy. Patient continues to have some ble eding from the incision site. The lower aspect of the incisional dressing has blood. No stool from her ostomy. Denies any nausea or vomiting. She reports her pain is controlled. Afebrile. Labs for today pending. SILVIO drain serosanguineous output 120ml yesterday and 40 ml through the night. Patient does have a cough. Patient has been receiving IV Lasix. Chest x-ray reporting right pleural effusion with pulmonary vascular congestion. PHYSICAL EXAM: VITAL SIGNS: Reviewed. GENERAL: no acute distress. ABDOMEN: Soft. mildly distended. Colostomy with pale pink stoma. No stool. Incisional dressing saturated with blood the lower aspect. No active bleeding noted at incision ASSESSMENT: 1. perforated sigmoid diverticulitis PLAN: -Incisional dressing being changed. Discussed with nursing staff to apply the abdominal binder. -Hold Lovenox again today because of incisional bleeding. SCDs added for DVT prophylaxis -Encourage patient to increase activity level -Okay from surgical standpoint to discontinue Hadley catheter -Continue to monitor -Continue antibiotics -GI prophylaxis Protonix Physician Barbering Instructor note has been reviewed by physician. Signing provider agrees with the documented findings, assessment, and plan of care. Objective - Vital Signs Vital signs: Vital Signs Temp 97.6 F 09/28/23 07:23 Pulse 88 09/28/23 09:36 Resp 18 09/28/23 07:23 BP 157/97 09/28/23 07:23 Pulse Ox 92 L 09/28/23 07:23 FiO2 35 09/21/23 20:21 Intake & Output 09/27/23 09/28/23 09/28/23 18:59 06:59 18:59 Intake Total 400 Output Total 1395 590 Balance -995 -590 Weight 66.5 kg Intake: Oral 400 Output: Drainage 20 140 SILVIO Abdomen 20 140 Urine 1375 450 Other: Voiding Method Indwelling Catheter Indwelling Catheter - Labs CBC & Chem 7: 09/27/23 04:54 09/27/23 04:54
[2023-09-28 10:32] LABS: Anion Gap 8 mmol/L; Blood Urea Nitrogen 69 mg/dL (7-17); Calcium 8.7 mg/dL (8.4-10.2); Carbon Dioxide 23 mmol/L (22-30); Chloride 100 mmol/L (98-107); Glucose 146 mg/dL (74-99); Potassium 5.1 mmol/L (3.5-5.1); Sodium 131 mmol/L (137-145)
[2023-09-28 10:38] LABS: African American GFR (CKD) 21 (>60 ml/min/1.73 sqM); Non-African American GFR(CKD) 18 (>60 ml/min/1.73 sqM)
[2023-09-28 10:47] LABS: Anisocytosis Moderate; HCT 27.3 % (34.0-46.0); HGB 8.7 gm/dL (11.4-16.0); Hypochromasia Moderate; MCH 29.9 pg (25.0-35.0); MCHC 31.8 g/dL (31.0-37.0); MCV 93.8 fL (80.0-100.0); Macrocytosis Slight; Mean Platelet Volume 8.6; Platelet Count 284 k/uL (150-450); RBC 2.91 m/uL (3.80-5.40); RDW 20.1 % (11.5-15.5)
--- NOTE | 2023-09-28 10:53 | P.PN ---
Subjective Progress Note Date: 09/28/23 This is a 63-year-old female patient with a known history of chronic obstructive pulmonary disease, former smoker, previous acute kidney injury requiring dialysis that she completed approximately 2 weeks ago. She presented here to the emergency room today with increasing shortness of breath. Symptoms started just this morning. No fever or chills. No cough or congestion. Mainly dyspnea on minimal exertion. Chest x-ray reveals evidence of COPD with superimposed interstitial opacities, possible pulmonary edema versus atypical pneumonia. White count 27.9. Hemoglobin 10.5. Platelets 294. INR 1.3. Sodium 136. Potassium 4.3. Bicarb 30. BUN 47. Creatinine 1.56. Glucose 196. Troponin 0.205. proBNP 60,000. The patient is seen in consultation in the emergency department. She is currently sitting up on the stretcher. Awake and alert. On BiPAP 14/5 and 40% FiO2 to maintain O2 saturations in the 90s. Been initiated on a heparin drip. Initiated on antibiotics, bronchodilators and steroids. The patient is seen today September 22, 2023 in follow-up in the emergency department. She is awake and alert in no acute distress. Breathing easier today compared to yesterday. She is maintaining good O2 saturations in the 90s on 2 L/min per nasal cannula. She has been off the BiPAP. She remains on a heparin drip. Peak troponin 0.521. She is continued on DuoNeb inhalations, Symbicort, Solu-Medrol. She is continued on ceftriaxone. Chest x-ray shows diffuse interstitial opacities with slight improvement. The patient is seen today September 27, 2023 in follow-up on the regular medical [facility] or. She is currently sitting up in a chair. Awake and alert in no acute distress. She is still receiving oxygen at 6 L/min per nasal cannula. Lactated Ringer's at 75 MLS per hour. She did have an episode of shortness of breath and anxiety last evening. She states she is feeling better today. X-ray reveals evidence of fluid volume overload. No focal consolidation, pneumothorax or pleural effusion. Right internal jugular catheter in place. She is status post 1 unit of packed red blood cells and 2 units of fresh frozen plasma this admission. Abdominal fluid cultures were positive for bacteroids. Wound culture positive for Enterococcus faecium VRE, Enterococcus faecalis VRE and Cha. White count 20.1. Hemoglobin 8.7. Platelets 227. Sodium 135. Potassium 5.8. Bicarb 23. BUN 63. Creatinine 2.46. Glucose 124. She is continued on DuoNeb inhalations, Symbicort, daptomycin and Zosyn. Lovenox for DVT prophylaxis. The patient is seen today September 27, 2023 in follow-up on the regular medical floor. She is currently resting in bed. Awake and alert in no acute distress. Feeling better today compared to yesterday. She is maintaining good O2 saturations in the 90s on 4 L/min per nasal cannula. No IV fluids. She is continued on daptomycin and Zosyn. Chest x-ray reveals right pleural effusion with pulmonary vascular congestion. Left lung is relatively clear. She remains on DuoNeb ventilations, Pulmicort and Perforomist inhalations, Solu-Medrol. Lovenox for DVT prophylaxis. Sodium 131. Potassium 5.1. Bicarb 23. BUN 69. Creatinine 2.68. Glucose 146. She was given Lasix 60 mg IVP x 1. She is currently in a -1.5 L balance. Objective - Vital Signs Vital signs: Vital Signs Temp 97.6 F 09/28/23 07:23 Pulse 88 09/28/23 09:36 Resp 18 09/28/23 07:23 BP 157/97 09/28/23 07:23 Pulse Ox 92 L 09/28/23 07:23 FiO2 35 09/21/23 20:21 Intake & Output 09/27/23 09/28/23 09/28/23 18:59 06:59 18:59 Intake Total 400 Output Total 1395 590 Balance -995 -590 Weight 66.5 kg Intake: Oral 400 Output: Drainage 20 140 SILVIO Abdomen 20 140 Urine 1375 450 Other: Voiding Method Indwelling Catheter Indwelling Catheter - Exam GENERAL EXAM: Alert, pleasant 63-year-old female, sitting comfortably in bed, on 4 L/min per nasal cannula, in no apparent distress. HEAD: Normocephalic. EYES: Normal reaction of pupils, equal size. NOSE: Clear with pink turbinates. THROAT: No erythema or exudates. NECK: No masses, no JVD. CHEST: No chest wall deformity. LUNGS: Equal air entry with bibasilar crackles, diminished. CVS: S1 and S2 normal with no audible murmur, regular rhythm. ABDOMEN: Colostomy with pink stoma. No stool. Incisional drainage noted on the lower aspect of the dressing. SPINE: No scoliosis or deformity SKIN: No rashes CENTRAL NERVOUS SYSTEM: No focal deficits, tone is normal in all 4 extremities. EXTREMITIES: There is 1+ peripheral edema. No clubbing, no cyanosis. Per ipheral pulses are intact. - Labs CBC & Chem 7: 09/27/23 04:54 09/28/23 09:38 Labs: Abnormal Lab Results - Last 24 Hours (Table) 09/28/23 Range/Units 09:38 Sodium 131 L (137-145) mmol/L BUN 69 H (7-17) mg/dL Creatinine 2.68 H (0.52-1.04) mg/dL Glucose 146 H (74-99) mg/dL Assessment and Plan Assessment: Acute hypoxemic respiratory failure secondary to an acute exacerbation of chronic obstructive pulmonary disease, acute systolic congestive heart failure Status post exploratory laparotomy, sigmoid colectomy, and end sigmoid colostomy for ruptured sigmoid diverticulum on September 23, 2023. Cultures positive for bacteroids. Enterococcus faecium VRE, Enterococcus faecalis VRE, Cha. Currently on daptomycin and Zosyn Acute kidney injury Leukocytosis Severe cardiomyopathy with an ejection fraction of 25-30 % History of chronic obstructive pulmonary disease Chronic tobacco dependence Question of vasculitis and was to have had a kidney biopsy in June 2023 unclear if this was done History of acute kidney injury requiring temporary hemodialysis, states completed 2 weeks ago History of PE/DVT, on Lovenox postoperatively Plan: The patient was seen and evaluated Chest x-ray, labs and medications reviewed Lovenox held due to incisional bleeding Continue Pulmicort and Perforomist inhalations Continue Solu-Medrol to 60mg every 6 hours Give Lasix 60 mg IVP x 1 Decrease IV fluids to KVO Continue daptomycin and Zosyn Titrate the FiO2 as tolerated This patient was seen independently by the pulmonary nurse practitioner addressing pulmonary issues I have personally seen and examined the patient, performed the documentation and the assessment and plan as written. Number of minutes spent on the visit: 24.
[2023-09-28 12:08] LABS: Lymphocytes # (M) 0.92 k/uL (1.0-4.8); Metamyelocytes # (M) 0.18 k/uL (0); Metamyelocytes % 1 %; Monocytes # (M) 0.18 k/uL (0-1.0); Myelocytes # (M) 0.18 k/uL (0); Myelocytes % 1 %; Neutrophils # (M) 17.11 k/uL (1.3-7.7); Neutrophils % (M) 93 %; Nucleated Red Blood Cells 5 /100 WBC (0-0); Total Cells Counted 200; WBC 18.4 k/uL (3.8-10.6)
[2023-09-28 12:09] LABS: Poikilocytosis (M) Present; Polychromasia Present
--- NOTE | 2023-09-28 12:33 | P.PN ---
Subjective patient is seen for follow-up for acute kidney injury. History of hemodialysis dependent acute kidney injury with recovery of renal function and patient has been off of dialysis for about 3 weeks now. Right IJ permacath remains in place and was scheduled to have been discontinued as outpatient. Admitted with shortness of breath with volume overload. Patient has been diuresed and diuretics were held for the last few days. Restarted yesterday. This morning patient is complaining of shortness of breath. No complaints of chest pains. Serum creatinine increased to 2.6 mg/dL today. 24 hour urine output at 1.8 L. Objective - Vital Signs Vital signs: Vital Signs Temp 97.6 F 09/28/23 07:23 Pulse 96 09/28/23 12:24 Resp 18 09/28/23 07:23 BP 157/97 09/28/23 07:23 Pulse Ox 92 L 09/28/23 07:23 FiO2 35 09/21/23 20:21 Intake & Output 09/27/23 09/28/23 09/28/23 18:59 06:59 18:59 Intake Total 400 Output Total 1395 590 Balance -995 -590 Weight 66.5 kg Intake: Oral 400 Output: Drainage 20 140 SILVIO Abdomen 20 140 Urine 1375 450 Other: Voiding Method Indwelling Catheter Indwelling Catheter Indwelling Catheter - Exam patient is awake, comfortable, mild respiratory distress. Examination of the heart S1 and S2 Examination of the lungs bilateral breath sounds are heard Abdomen is soft nontender Examination of lower extremities shows trace edema. 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 grossly intact - Labs CBC & Chem 7: 09/28/23 09:38 09/28/23 09:38 Labs: Abnormal Lab Results - Last 24 Hours (Table) 09/28/23 09/28/23 Range/Units 09:38 09:38 WBC 18.4 H (3.8-10.6) k/uL RBC 2.91 L (3.80-5.40) m/uL Hgb 8.7 L (11.4-16.0) gm/dL Hct 27.3 L (34.0-46.0) % RDW 20.1 H (11.5-15.5) % Neutrophils # (Manual) 17.11 H (1.3-7.7) k/uL Lymphocytes # (Manual) 0.92 L (1.0-4.8) k/uL Metamyelocytes # (Man) 0.18 H (0) k/uL Myelocytes # (Manual) 0.18 H (0) k/uL Nucleated RBCs 5 H (0-0) /100 WBC Sodium 131 L (137-145) mmol/L BUN 69 H (7-17) mg/dL Creatinine 2.68 H (0.52-1.04) mg/dL Glucose 146 H (74-99) mg/dL Assessment and Plan Assessment: 1. 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 Also component of cardiorenal syndrome. renal function slowly worsening. Creatinine was 1.9 dated September 07, 2023. Patient was hemodialysis dependent but was recently taken off hemodialysis. She still has permacath in place. Ultrasound from June 2023 showed no evidence of hydronephrosis. Creatinine stable today 2.68 likely related to anemia and cardiorenal syndrome. Blood pressure has not been low. 2. ANCA vasculitis maintained on prednisone. Status post 2 doses of IV rituximab 1 g completed August 2023. Maintained on 30 mg of prednisone outpatient. 3. Acute on chronic systolic CHF ejection fraction of 25 to 30% with severe pulmonary hypertension and moderate tricuspid regurgitation. 4. Acute hypoxic respiratory failure secondary to COPD exacerbation as well as CHF. 5. History of PE maintained on anticoagulation. 6. Anemia. high ferritin noted. 7. Pneumoperitoneum status post diagnostic laparoscopy, sigmoid colectomy with end colostomy 09/23/2023. Plan: continue with Lasix. proceed with hemodialysis today as patient remains with volume overload along with worsening renal function.
--- NOTE | 2023-09-28 16:48 | P.PN ---
Subjective Progress Note Date: 09/28/23 This is a 63-year-old female patient of Dr. Daniels who presented to the ER with concerns of increased shortness of breath. Patient was recently admitted at [facility] last week for similar symptoms but did leave AMA prior to completion of treatment. Patient was alsopatient was also recently admitted recently admitted and transferred to [facility] and transferred to [facility] due to diagnosis of vasculitis and required hemodialysis during the hospital stay patient also had episode of pulmonary embolism in which she was started on Coumadin. Patient recently had hemodialysis catheter DC'd.. Additional medical history includes COPD and ex-smoker. Chest x-ray completed in ER showing COPD with superimposed interstitial opacities possible interstitial pulmonary edema versus atypicalCOPD with superimposed interstitial bases possible interstitial pulmonary edema versus atypical pneumonitis. Lab work revealing BNP level 60,000.. [id number] 0.205, 0.403 and 0.521. Creatinine 1.56 bun 47. White blood cell 27.9 hemoglobin 10.5 . Patient was started on Zithromax and Rocephin. Given dose of IV Lasix. Started on heparin drip for elevated troponins. Cardiology pulmonary and nephrology services consulted. Cardiology pulmonary and nephrology service is consulted. Current vital signs Temp 97.3, heart rate 95, respiratory rate 18, blood pressure 143/88 with a pulse ox of 96% on 2 L. On 09/23/2023 patient was seen and examined on the medical floor she is alert and oriented x 3 in no apparent distress, she started complaining of severe abdominal pain in the bilateral lower quadrants this morning, otherwise she denies any complaints there is no fever or chills no headache or dizziness no chest pain no shortness of breath no cough no nausea or vomiting no diarrhea no blood in the stools no burning with urination no frequency or urgency and no hematuria, CT scan of the abdomen and pelvis without contrast was ordered, will follow closely On 09/24/2023 Patient's alert and oriented 3. Patient is status post diagnostic laparoscopy sigmoid colectomy with end colostomy secondary to perforated sigmoid diverticulitis. Patient is currently postop day 1. Patient was transferred to the intensive care unit postoperatively but has been extubated to 2 L. Patient remains on IV Zosyn. Vertical care, nephrology, surgical, infectious disease service is following. Patient denies chest pain or shortness breath. Patient denies nausea vomiting or diarrhea. Burning or frequency On 09/25/2023 patient was seen and examined on the medical floor, she is alert and oriented x 3 in no apparent distress, there is no fever or chills no headache or dizziness no chest pain no shortness of breath no cough no nausea or vomiting no abdominal pain no diarrhea and no urinary symptoms, patient was noticed by her nurse to have an equal pupils, patient denies any previous knowl edge of abnormal pupil size, CT scan of the brain and neurology consultation will be initiated, hemoglobin today is down to 6.7 and patient will be given 1 unit of red blood cells. On 09/26/2023 patient is alert and oriented x 3. Patient has been tolerating full liquid diet. Patient el on IV Zosyn. Neurology services are following. Current vital signs Temp 98.2, rate 85, respiratory rate 15, blood pressure 151/89 with a pulse ox of 95% on 2 L. Patient denies chest pain or shortness of breath. Patient denies nausea vomiting or diarrhea. Patient denies any urinary burning or frequency. On 09/27/2023 patient was seen and examined on the medical floor, she is alert and oriented x 3 in no distress she denies any symptoms at this time there is no fever or chills, no headache or dizziness no chest pain no shortness of breath no cough no nausea or vomiting no abdominal pain no diarrhea no urinary symptoms On 09/28/2023 patient was seen and examined on the medical floor she is alert and oriented in no apparent distress there is no fever or chills no headache or dizziness no chest pain no shortness of breath no cough no nausea or vomiting no abdominal pain no diarrhea no urinary symptoms multiple specialist input reviewed today will follow in a.m. Objective - Vital Signs Vital signs: Vital Signs Temp 97.6 F 09/28/23 13:12 Pulse 80 09/28/23 16:03 Resp 17 09/28/23 13:12 BP 149/100 09/28/23 13:12 Pulse Ox 92 L 09/28/23 07:23 FiO2 35 09/21/23 20:21 Intake & Output 09/27/23 09/28/23 09/28/23 18:59 06:59 18:59 Intake Total 400 Output Total 1395 590 Balance -995 -590 Weight 66.5 kg 66.5 kg Intake: Oral 400 Output: Drainage 20 140 SILVIO Abdomen 20 140 Urine 1375 450 Other: Voiding Method Indwelling Catheter Indwelling Catheter Indwelling Catheter - Exam Physical examHead normocephalic Neck supple Lungs diminished bilaterally Heart regular rate and rhythm S1-S2, no rub or gallop Abdomen is soft with mild diffuse tenderness especially in the pelvic area bilaterally no organomegaly no palpable masses Extremities no edema Neuro alert and orientated to 3 - Labs CBC & Chem 7: 09/28/23 09:38 09/28/23 09:38 Labs: Abnormal Lab Results - Last 24 Hours (Table) 09/28/23 09/28/23 Range/Units 09:38 09:38 WBC 18.4 H (3.8-10.6) k/uL RBC 2.91 L (3.80-5.40) m/uL Hgb 8.7 L (11.4-16.0) gm/dL Hct 27.3 L (34.0-46.0) % RDW 20.1 H (11.5-15.5) % Neutrophils # (Manual) 17.11 H (1.3-7.7) k/uL Lymphocytes # (Manual) 0.92 L (1.0-4.8) k/uL Metamyelocytes # (Man) 0.18 H (0) k/uL Myelocytes # (Manual) 0.18 H (0) k/uL Nucleated RBCs 5 H (0-0) /100 WBC Sodium 131 L (137-145) mmol/L BUN 69 H (7-17) mg/dL Creatinine 2.68 H (0.52-1.04) mg/dL Glucose 146 H (74-99) mg/dL Assessment and Plan Assessment: Acute hypoxic respiratory failure secondary to acute exacerbation of COPD and acute systolic congestive heart failure Acute exacerbation of COPD. Patient started on IV steroids Acute systolic congestive heart failure Perforated sigmoid diverticulitis status post sigmoid colectomy with end co lostomy on 09/23/2023 Elevated troponins, likely related to renal failure, seen by cardiology no in tervention recommended at this time Acute on chronic kidney disease Recent diagnosis of vasculitis at [facility] Recent history of PE/DVT maintained on Coumadin History of cardiomyopathy with EF of 15 to 20% History of tobacco abuse recently quit Unequal pupil size. Neurology service is following DVT prophylaxis lovenox. GI prophylaxis Protonix Pulmonary, cardiology and nephrology services consulted Patient started on IV steroids and IV antibiotics The patient was transferred to the intensive care unit postoperatively
[2023-09-28 21:35] LABS: Hepatitis B Surface Antigen Nonreactive (Nonreactive)
[2023-09-28 23:32] LABS: Hepatitis B Surface AB- Quant 3.5 mIU/mL
--- NOTE | 2023-09-29 07:20 | P.PN ---
Subjective Progress Note Date: 09/28/23 09/28/2023: Patient was seen for a follow-up. Patient states that her legs are getting weaker. She has been in the hospital since last Wednesday, 7 days ago. Patient was able to tell me that she has received rituximab infusion in July 2023 as well as on 08/26/2023 for vasculitis. Patient is getting ready for hemodialysis. 09/27/2023: Patient is a 63-year-old female with recent diagnosis of vasculitis (since June 2023) with multiple organ dysfunction. Patient has anisocoria about 1 mm difference between her eyes. No headache, visual disturbance. Patient does not want to proceed with MRI or additional workup. Patient was seen for a follow-up. Patient is sitting comfortably in the recliner. Patient denies any headache any numbness or tingling, denies any strokelike symptoms. Her vision is "good". Patient says that she was diagnosed with vasculitis and [facility]. She had some IV infusion 2 to treat her vasculitis, the name she does not remember says something starts with "Vitr". Patient developed acute renal failure on 06/30/2023 and was started on hemodialysis shortly after. Some of the workup during this hospital visit consisted of: White blood cell on presentation is 27,000 and is trending down. Hemoglobin is 6.7 and today is 8.6 Most recent creatinine is 2.4. It is drastically better compared to 06/29/2023. Per recent TSH on 07/05/2023 is 3.73 which is normal CK level 25 CT head: It is reported as no acute intracranial process. Nonspecific white matter changes, likely secondary due to chronic small vessel ischemic disease. I personally reviewed the CT and I agree with the report. Carotid duplex: Less than 50% stenosis bilateral carotid bifurcation Objective - Vital Signs Vital signs: Vital Signs Temp 97.6 F 09/28/23 13:12 Pulse 89 09/28/23 13:12 Resp 17 09/28/23 13:12 BP 149/100 09/28/23 13:12 Pulse Ox 92 L 09/28/23 07:23 FiO2 35 09/21/23 20:21 Intake & Output 09/27/23 09/28/23 09/28/23 18:59 06:59 18:59 Intake Total 400 Output Total 1395 590 Balance -995 -590 Weight 66.5 kg Intake: Oral 400 Output: Drainage 20 140 SILVIO Abdomen 20 140 Urine 1375 450 Other: Voiding Method Indwelling Catheter Indwelling Catheter Indwelling Catheter - Exam On examination patient is a late middle aged female, sitting comfortably in the recliner, in no distress. Patient is alert and oriented 4. Speech and language functions are normal. Cranial nerves are significant for very mild anisocoria. The left pupil is slightly larger than the right. Both are reactive. Visual gomez are full on confrontation. Extraocular muscles intact with no nystagmus. Facial strength is normal. Hearing is normal. Tongue protrudes the midline. Sensations are equal. No pronator drift. The muscle strength is (right/left) deltoid 5-4+/5-4+, biceps 4/4, triceps 4+/4+, motor tester 5-/5-, hip flexion 1-2/1-2, hip adduction 4/4, hip abduction 4/4+, knee extension 4/4-, ankle dorsiflexion 4/4. Deep tendon reflexes are (right/left) biceps 1+/trace, brachioradialis 1+/1, and triceps trace/trace, knee 0/0, ankles 0/0 and plantars are flat. No ataxia in the upper limbs. - Labs CBC & Chem 7: 09/28/23 09:38 09/28/23 09:38 Labs: Abnormal Lab Results - Last 24 Hours (Table) 09/28/23 09/28/23 Range/Units 09:38 09:38 WBC 18.4 H (3.8-10.6) k/uL RBC 2.91 L (3.80-5.40) m/uL Hgb 8.7 L (11.4-16.0) gm/dL Hct 27.3 L (34.0-46.0) % RDW 20.1 H (11.5-15.5) % Neutrophils # (Manual) 17.11 H (1.3-7.7) k/uL Lymphocytes # (Manual) 0.92 L (1.0-4.8) k/uL Metamyelocytes # (Man) 0.18 H (0) k/uL Myelocytes # (Manual) 0.18 H (0) k/uL Nucleated RBCs 5 H (0-0) /100 WBC Sodium 131 L (137-145) mmol/L BUN 69 H (7-17) mg/dL Creatinine 2.68 H (0.52-1.04) mg/dL Glucose 146 H (74-99) mg/dL Assessment and Plan Assessment: This is a 63-year-old woman who was 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 During this admission she was found to have unequal pupils left slightly bigger than the right but she denies of any headache visual disturbance difficulty swallowing. Anisocoria left pupil is 4 mm and the right is 3 mm and both reactive to light and denies any headache or visual disturbance: Unsure exact etiology. Possible physiological since only 1mm difference vs medication iduced ?(on nebulizers) vs ?vasculitis. CT head and carotid duplex are unremarkable. Recent perforated sigmoid diverticulitis status post diagnostic laparoscopy with sigmoid colectomy and end colostomy on 09/23/2023 Recent diagnosis of vasculitis and had kidney biopsy at [facility] in June 2023 Acute kidney injury since June 2023 and patient required temporary dialysis which she completed and kidneys are improving but not back to baseline Anemia Has significant bilateral lower extremity weakness more than upper since June 2023. Although patient initially mentioned that her strength is improving, but now states arms and legs are getting weaker. Exact cause is uncertain. Rule out polyneuropathy/CIDP. Cardiomyopathy and ejection fraction of 25 to 30% since she had vasculitis History of recent pulmonary embolism DVT and is on Coumadin History of COPD Ex tobacco user Plan: KATIE negative, SSA/SSB negative, anti-Hurst antibodies negative, HUMAN RESOURCE STATISTICIAN antibodies negative. The patient is on methylprednisolone 60 mg IV every 6 hours, as per pulmonary team. Patient does not want any further or escalation of work-up for her anisocoria at this time otherwise. Does not want MRI Brain and does not want to pursue with temporal biopsy. I highly doubt giant cell arteritis. Patient is in agreement if has any headache or visual disturbance then will proceed with work-up. Recommend the patient to be evaluated by Concrete Pipe Plant Supervisor as outpatient within 2- 3 weeks. Patient believes she is getting weaker in her arms and legs. Patient will need EMG and nerve conductions of upper and lower extremities to evaluate for polyneuropathy. I discussed with patient about performing lumbar puncture to rule out elevated proteins, which may suggest an inflammatory component. Patient completely declined lumbar puncture. We will observe her clinically. Pulmonary team is on board, ID team is on board, nephrology team is on board and cardiology team is on board Will defer the rest of the medical management to primary and other specialist
[2023-09-29 08:29] LABS: Basophils # (A) 0.03 X 10*3/uL (0.00-0.10); Basophils % (A) 0.2 %; Eosinophils # (A) 0 X 10*3/uL (0.04-0.35); Eosinophils % (A) 0 %; HCT 25.1 % (37.2-46.3); HGB 7.9 g/dL (12.0-15.0); Lymphocytes # (A) 0.46 X 10*3/uL (0.90-5.00); Lymphocytes % (A) 2.6 %; MCH 29.5 pg (27.0-32.0); MCHC 31.5 g/dL (32.0-37.0); MCV 93.7 FL (80.0-97.0); Mean Platelet Volume 10.9 FL (9.5-12.2); Monocytes # (A) 0.23 X 10*3/uL (0.20-1.00); Monocytes % (A) 1.3 %; Neutrophils # (A) 16.61 X 10*3/uL (1.80-7.70); Neutrophils % (A) 93.5 %; Platelet Count 233 X 10*3/uL (140-440); RBC 2.68 X 10*6/uL (4.10-5.20); RDW 20.3 % (11.5-14.5); WBC 17.76 X 10*3/uL (4.50-10.00)
[2023-09-29 09:34] LABS: ALT 24 U/L (8-44); AST 32 U/L (13-35); Albumin 2.7 g/dL (3.8-4.9); Albumin/Globulin Ratio 1.69 Ratio (1.60-3.17); Alkaline Phosphatase 77 U/L (41-126); Blood Urea Nitrogen 33.4 mg/dL (9.0-27.0); Calcium 8.1 mg/dL (8.7-10.3); Carbon Dioxide 27.5 mmol/L (21.6-31.8); Chloride 95 mmol/L (96-109); Globulin 1.6 g/dL (1.6-3.3); Glucose 152 mg/dL (70-110); Potassium 3.5 mmol/L (3.5-5.5); Sodium 136 mmol/L (135-145); Total Bilirubin 0.3 mg/dL (0.3-1.2); Total Protein 4.3 g/dL (6.2-8.2)
--- NOTE | 2023-09-29 10:30 | P.PN ---
Subjective Progress Note Date: 09/29/23 This is a 63-year-old female patient of Dr. Daniels who presented to the ER with concerns of increased shortness of breath. Patient was recently admitted at [facility] last week for similar symptoms but did leave AMA prior to completion of treatment. Patient was alsopatient was also recently admitted recently admitted and transferred to [facility] and transferred to [facility] due to diagnosis of vasculitis and required hemodialysis during the hospital stay patient also had episode of pulmonary embolism in which she was started on Coumadin. Patient recently had hemodialysis catheter DC'd.. Additional medical history includes COPD and ex-smoker. Chest x-ray completed in ER showing COPD with superimposed interstitial opacities possible interstitial pulmonary edema versus atypicalCOPD with superimposed interstitial bases possible interstitial pulmonary edema versus atypical pneumonitis. Lab work revealing BNP level 60,000.. [id number] 0.205, 0.403 and 0.521. Creatinine 1.56 bun 47. White blood cell 27.9 hemoglobin 10.5 . Patient was started on Zithromax and Rocephin. Given dose of IV Lasix. Started on heparin drip for elevated troponins. Cardiology pulmonary and nephrology services consulted. Cardiology pulmonary and nephrology service is consulted. Current vital signs Temp 97.3, heart rate 95, respiratory rate 18, blood pressure 143/88 with a pulse ox of 96% on 2 L. On 09/23/2023 patient was seen and examined on the medical floor she is alert and oriented x 3 in no apparent distress, she started complaining of severe abdominal pain in the bilateral lower quadrants this morning, otherwise she denies any complaints there is no fever or chills no headache or dizziness no chest pain no shortness of breath no cough no nausea or vomiting no diarrhea no blood in the stools no burning with urination no frequency or urgency and no hematuria, CT scan of the abdomen and pelvis without contrast was ordered, will follow closely On 09/24/2023 Patient's alert and oriented 3. Patient is status post diagnostic laparoscopy sigmoid colectomy with end colostomy secondary to perforated sigmoid diverticulitis. Patient is currently postop day 1. Patient was transferred to the intensive care unit postoperatively but has been extubated to 2 L. Patient remains on IV Zosyn. Vertical care, nephrology, surgical, infectious disease service is following. Patient denies chest pain or shortness breath. Patient denies nausea vomiting or diarrhea. Burning or frequency On 09/25/2023 patient was seen and examined on the medical floor, she is alert and oriented x 3 in no apparent distress, there is no fever or chills no headache or dizziness no chest pain no shortness of breath no cough no nausea or vomiting no abdominal pain no diarrhea and no urinary symptoms, patient was noticed by her nurse to have an equal pupils, patient denies any previous knowl edge of abnormal pupil size, CT scan of the brain and neurology consultation will be initiated, hemoglobin today is down to 6.7 and patient will be given 1 unit of red blood cells. On 09/26/2023 patient is alert and oriented x 3. Patient has been tolerating full liquid diet. Patient el on IV Zosyn. Neurology services are following. Current vital signs Temp 98.2, rate 85, respiratory rate 15, blood pressure 151/89 with a pulse ox of 95% on 2 L. Patient denies chest pain or shortness of breath. Patient denies nausea vomiting or diarrhea. Patient denies any urinary burning or frequency. On 09/27/2023 patient was seen and examined on the medical floor, she is alert and oriented x 3 in no distress she denies any symptoms at this time there is no fever or chills, no headache or dizziness no chest pain no shortness of breath no cough no nausea or vomiting no abdominal pain no diarrhea no urinary symptoms On 09/28/2023 patient was seen and examined on the medical floor she is alert and oriented in no apparent distress there is no fever or chills no headache or dizziness no chest pain no shortness of breath no cough no nausea or vomiting no abdominal pain no diarrhea no urinary symptoms multiple specialist input reviewed today will follow in a.m. on 09/29/2023atient is alert and oriented 3. Patient underwent hemodialysis yesterday patient remains on IV steroids at [facility] and sy. White blood cell trending down 17.76.current vital signs temp 97.7, heart rate 84, resp iratory rate 17, blood pressure 157/99 with pulse ox 98% on 4 L Objective - Vital Signs Vital signs: Vital Signs Temp 97.7 F 09/29/23 07:21 Pulse 74 09/29/23 08:13 Resp 17 09/29/23 07:21 BP 157/99 09/29/23 07:21 Pulse Ox 98 07/24/24 07:53 FiO2 35 09/21/23 20:21 Intake & Output 09/28/23 09/29/23 09/29/23 18:59 06:59 18:59 Intake Total 500 Output Total 600 5850 Balance -600 -5350 Weight 66.5 kg 66.5 kg Intake: Hemodialysis 500 Output: Drainage 50 SILVIO Abdomen 50 Urine 600 300 Hemodialysis 3000 Hemodialysis Net Amount 2500 Other: Voiding Method Indwelling Catheter Indwelling Catheter - Exam Physical examHead normocephalic Neck supple Lungs diminished bilaterally Heart regular rate and rhythm S1-S2, no rub or gallop Abdomen is soft with mild diffuse tenderness especially in the pelvic area bilaterally no organomegaly no palpable masses Extremities no edema Neuro alert and orientated to 3 - Labs CBC & Chem 7: 09/29/23 04:27 09/29/23 04:27 Labs: Abnormal Lab Results - Last 24 Hours (Table) 09/28/23 09/28/23 09/29/23 Range/Units 09:38 09:38 04:27 WBC 18.4 H 17.76 H (3.8-10.6) k/uL RBC 2.91 L 2.68 L (3.80-5.40) m/uL Hgb 8.7 L 7.9 L (11.4-16.0) gm/dL Hct 27.3 L 25.1 L (34.0-46.0) % MCHC 31.5 L (32.0-37.0) g/dL RDW 20.1 H 20.3 H (11.5-15.5) % Immature Gran # 0.43 H (0.00-0.04) X 10*3/uL Neutrophils # 16.61 H (1.80-7.70) X 10*3/uL Neutrophils # (Manual) 17.11 H (1.3-7.7) k/uL Lymphocytes # 0.46 L (0.90-5.00) X 10*3/uL Lymphocytes # (Manual) 0.92 L (1.0-4.8) k/uL Eosinophils # 0 L (0.04-0.35) X 10*3/uL Metamyelocytes # (Man) 0.18 H (0) k/uL Myelocytes # (Manual) 0.18 H (0) k/uL Nucleated RBCs 5 H (0-0) /100 WBC NRBC/100 WBC Diff 1.40 H (0.00-0.01) X 10*3/uL Sodium 131 L (137-145) mmol/L Chloride (96-109) mmol/L Anion Gap (4.00-12.00) mmol/L BUN 69 H (7-17) mg/dL Creatinine 2.68 H (0.52-1.04) mg/dL Est GFR (CKD-EPI) (>=60) Glucose 146 H (74-99) mg/dL Calcium (8.7-10.3) mg/dL Total Protein (6.2-8.2) g/dL Albumin (3.8-4.9) g/dL 09/29/23 Range/Units 04:27 WBC (3.8-10.6) k/uL RBC (3.80-5.40) m/uL Hgb (11.4-16.0) gm/dL Hct (34.0-46.0) % MCHC (32.0-37.0) g/dL RDW (11.5-15.5) % Immature Gran # (0.00-0.04) X 10*3/uL Neutrophils # (1.80-7.70) X 10*3/uL Neutrophils # (Manual) (1.3-7.7) k/uL Lymphocytes # (0.90-5.00) X 10*3/uL Lymphocytes # (Manual) (1.0-4.8) k/uL Eosinophils # (0.04-0.35) X 10*3/uL Metamyelocytes # (Man) (0) k/uL Myelocytes # (Manual) (0) k/uL Nucleated RBCs (0-0) /100 WBC NRBC/100 WBC Diff (0.00-0.01) X 10*3/uL Sodium (137-145) mmol/L Chloride 95 L (96-109) mmol/L Anion Gap 13.50 H (4.00-12.00) mmol/L BUN 33.4 H (7-17) mg/dL Creatinine 2.0 H (0.52-1.04) mg/dL Est GFR (CKD-EPI) 28 L (>=60) Glucose 152 H (74-99) mg/dL Calcium 8.1 L (8.7-10.3) mg/dL Total Protein 4.3 L (6.2-8.2) g/dL Albumin 2.7 L (3.8-4.9) g/dL Assessment and Plan Assessment: Acute hypoxic respiratory failure secondary to acute exacerbation of COPD and acute systolic congestive heart failure Acute exacerbation of COPD. Patient started on IV steroids Acute systolic congestive heart failure Perforated sigmoid diverticulitis status post sigmoid colectomy with end colostomy on 09/23/2023 Elevated troponins, likely related to renal failure, seen by cardiology no intervention recommended at this time Acute on chronic kidney disease Recent diagnosis of vasculitis at [facility] Recent history of PE/DVT maintained on Coumadin History of cardiomyopathy with EF of 15 to 20% History of tobacco abuse recently quit Unequal pupil size. Neurology service is following DVT prophylaxis lovenox. GI prophylaxis Protonix Pulmonary, cardiology and nephrology services consulted Patient started on IV steroids and IV antibiotics The patient was transferred to the intensive care unit postoperatively
--- NOTE | 2023-09-29 10:51 | P.PN ---
Subjective Progress Note Date: 09/29/23 This is a 63-year-old female patient with a known history of chronic obstructive pulmonary disease, former smoker, previous acute kidney injury requiring dialysis that she completed approximately 2 weeks ago. She presented here to the emergency room today with increasing shortness of breath. Symptoms started just this morning. No fever or chills. No cough or congestion. Mainly dyspnea on minimal exertion. Chest x-ray reveals evidence of COPD with superimposed interstitial opacities, possible pulmonary edema versus atypical pneumonia. White count 27.9. Hemoglobin 10.5. Platelets 294. INR 1.3. Sodium 136. Potassium 4.3. Bicarb 30. BUN 47. Creatinine 1.56. Glucose 196. Troponin 0.205. proBNP 60,000. The patient is seen in consultation in the emergency department. She is currently sitting up on the stretcher. Awake and alert. On BiPAP 14/5 and 40% FiO2 to maintain O2 saturations in the 90s. Been initiated on a heparin drip. Initiated on antibiotics, bronchodilators and steroids. The patient is seen today September 22, 2023 in follow-up in the emergency department. She is awake and alert in no acute distress. Breathing easier today compared to yesterday. She is maintaining good O2 saturations in the 90s on 2 L/min per nasal cannula. She has been off the BiPAP. She remains on a heparin drip. Peak troponin 0.521. She is continued on DuoNeb inhalations, Symbicort, Solu-Medrol. She is continued on ceftriaxone. Chest x-ray shows diffuse interstitial opacities with slight improvement. The patient is seen today September 27, 2023 in follow-up on the regular medical [facility] or. She is currently sitting up in a chair. Awake and alert in no acute distress. She is still receiving oxygen at 6 L/min per nasal cannula. Lactated Ringer's at 75 MLS per hour. She did have an episode of shortness of breath and anxiety last evening. She states she is feeling better today. X-ray reveals evidence of fluid volume overload. No focal consolidation, pneumothorax or pleural effusion. Right internal jugular catheter in place. She is status post 1 unit of packed red blood cells and 2 units of fresh frozen plasma this admission. Abdominal fluid cultures were positive for bacteroids. Wound culture positive for Enterococcus faecium VRE, Enterococcus faecalis VRE and Cha. White count 20.1. Hemoglobin 8.7. Platelets 227. Sodium 135. Potassium 5.8. Bicarb 23. BUN 63. Creatinine 2.46. Glucose 124. She is continued on DuoNeb inhalations, Symbicort, daptomycin and Zosyn. Lovenox for DVT prophylaxis. The patient is seen today September 28, 2023 in follow-up on the regular medical floor. She is currently resting in bed. Awake and alert in no acute distress. Feeling better today compared to yesterday. She is maintaining good O2 saturations in the 90s on 4 L/min per nasal cannula. No IV fluids. She is continued on daptomycin and Zosyn. Chest x-ray reveals right pleural effusion with pulmonary vascular congestion. Left lung is relatively clear. She remains on DuoNeb ventilations, Pulmicort and Perforomist inhalations, Solu-Medrol. Lovenox for DVT prophylaxis. Sodium 131. Potassium 5.1. Bicarb 23. BUN 69. Creatinine 2.68. Glucose 146. She was given Lasix 60 mg IVP x 1. She is currently in a -1.5 L balance. The patient is seen today September 29, 2023 in follow-up on the regular medical floor. She is currently sitting up in bed. Awake and alert in no acute distress. Maintaining good O2 saturations in the 90s on 4 L/min per nasal neida sorin. She is status post 1 unit of packed red blood cells and 2 units of platelets fresh frozen plasma this admission. Abdominal fluid and wound cultures were positive for Enterococcus faecium VRE, Enterococcus faecalis VRE, Cha. White count 17.7. Hemoglobin 7.9. Platelets 233. Sodium 136. Potassium 3.5. Bicarb 27. BUN 33. Creatinine 2.0. Glucose 152. She remains on DuoNeb inhalations, Pulmicort and Perforomist inhalations, Solu-Medrol. Antibiotics in the form of daptomycin and Zosyn. Objective - Vital Signs Vital signs: Vital Signs Temp 97.7 F 09/29/23 07:21 Pulse 74 09/29/23 08:13 Resp 17 09/29/23 07:21 BP 157/99 09/29/23 07:21 Pulse Ox 98 09/29/23 07:53 FiO2 35 09/21/23 20:21 Intake & Output 09/28/23 09/29/23 09/29/23 18:59 06:59 18:59 Intake Total 500 Output Total 600 5850 Balance -600 -5350 Weight 66.5 kg 66.5 kg Intake: Hemodialysis 500 Output: Drainage 50 SILVIO Abdomen 50 Urine 600 300 Hemodialysis 3000 Hemodialysis Net Amount 2500 Other: Voiding Method Indwelling Catheter Indwelling Catheter - Exam GENERAL EXAM: Alert, 63-year-old female, resting in bed, on 4 L/min per nasal cannula, in no apparent distress. HEAD: Normocephalic. EYES: Normal reaction of pupils, equal size. NOSE: Clear with pink turbinates. THROAT: No erythema or exudates. NECK: No masses, no JVD. CHEST: No chest wall deformity. LUNGS: Equal air entry with bibasilar crackles, diminished. CVS: S1 and S2 normal with no audible murmur, regular rhythm. ABDOMEN: Colostomy with pink stoma. No stool. Incisional drainage noted on the lower aspect of the dressing. SPINE: No scoliosis or deformity SKIN: No rashes CENTRAL NERVOUS SYSTEM: No focal deficits, tone is normal in all 4 extremities. EXTREMITIES: There is 1+ peripheral edema. No clubbing, no cyanosis. Peripheral pulses are intact. - Labs CBC & Chem 7: 09/29/23 04:27 09/29/23 04:27 Labs: Abnormal Lab Results - Last 24 Hours (Table) 09/28/23 09/29/23 09/29/23 Range/Units 09:38 04:27 04:27 WBC 18.4 H 17.76 H (3.8-10.6) k/uL RBC 2.91 L 2.68 L (3.80-5.40) m/uL Hgb 8.7 L 7.9 L (11.4-16.0) gm/dL Hct 27.3 L 25.1 L (34.0-46.0) % MCHC 31.5 L (32.0-37.0) g/dL RDW 20.1 H 20.3 H (11.5-15.5) % Immature Gran # 0.43 H (0.00-0.04) X 10*3/uL Neutrophils # 16.61 H (1.80-7.70) X 10*3/uL Neutrophils # (Manual) 17.11 H (1.3-7.7) k/uL Lymphocytes # 0.46 L (0.90-5.00) X 10*3/uL Lymphocytes # (Manual) 0.92 L (1.0-4.8) k/uL Eosinophils # 0 L (0.04-0.35) X 10*3/uL Metamyelocytes # (Man) 0.18 H (0) k/uL Myelocytes # (Manual) 0.18 H (0) k/uL Nucleated RBCs 5 H (0-0) /100 WBC NRBC/100 WBC Diff 1.40 H (0.00-0.01) X 10*3/uL Chloride 95 L (96-109) mmol/L Anion Gap 13.50 H (4.00-12.00) mmol/L BUN 33.4 H (9.0-27.0) mg/dL Creatinine 2.0 H (0.6-1.5) mg/dL Est GFR (CKD-EPI) 28 L (>=60) Glucose 152 H (70-110) mg/dL Calcium 8.1 L (8.7-10.3) mg/dL Total Protein 4.3 L (6.2-8.2) g/dL Albumin 2.7 L (3.8-4.9) g/dL Assessment and Plan Assessment: Acute hypoxemic respiratory failure secondary to an acute exacerbation of chronic obstructive pulmonary disease, acute systolic congestive heart failure Status post exploratory laparotomy, sigmoid colectomy, and end sigmoid colostomy for ruptured sigmoid diverticulum on September 23, 2023. Cultures positive for bacteroids. Enterococcus faecium VRE, Enterococcus faecalis VRE, Cha. Currently on daptomycin and Zosyn Acute kidney injury Leukocytosis Severe cardiomyopathy with an ejection fraction of 25-30 % History of chronic obstructive pulmonary disease Chronic tobacco dependence Question of vasculitis and was to have had a kidney biopsy in June 2023 unclear if this was done History of acute kidney injury requiring temporary hemodialysis, states completed 2 weeks ago History of PE/DVT, on Lovenox postoperatively Plan: The patient was seen and evaluated Labs and medications reviewed Titrate down the FiO2 as tolerated Continue incentive spirometer and flutter valve Discontinue Pulmicort and Perforomist Add Symbicort Decrease Solu-Medrol to 40 mg every 8 hours Continue daptomycin and Zosyn Titrate the FiO2 as tolerated This patient was seen independently by the pulmonary nurse practitioner addressing pulmonary issues I have personally seen and examined the patient, performed the documentation and the assessment and plan as written. Number of minutes spent on the visit: 25.
--- NOTE | 2023-09-29 11:52 | CDI ---
Documentation Clarification Form Date: 09/29/2023 11:52:00 AM From: Dana Burgess Phone: [phone] Admit Date: 09/21/2023 02:34:00 PM Patient Name: Milka Coulter Visit Number: [id number] Discharge Date: ATTENTION: The Clinical Documentation Specialists (CDI) and [facility] Coding Staff appreciate your assistance in clarifying documentation. Please respond to the clarification below the line at the bottom and electronically sign. The CDI & [facility] Coding staff will review the response and follow-up if needed. Please note: Queries are made part of the Legal Health Record. If you have any questions, please contact the author of this message via ITS. Doctor/Provider: Kyle Alvarenga MD: There is documentation of bleeding at the incision site in the Surgical progress note 09/26. Based on this information and the findings below, is there an additional diagnosis that is clinically appropriate for this patient? History/Risk Factors: 63-year-old F with a history of COPD who presented with respiratory distress, found to have acute exacerbation of COPD, elevated troponins and exacerbation of CHF, complained of abdominal pain during the admission and found to have pneumoperitoneum with sigmoid diverticulitis s/p diagnostic laparoscopy, sigmoid colectomy with end colostomy Clinical Indicators: 09/26 Surgical PN, HPI: "She did have some bleeding at the incision site. Her dressing was saturated. Nurse did report oozing at the incision site." 09/27 Surgical PN, HPI: "Patient continues to have some bleeding from the incision site. The lower aspect of the incisional dressing has blood." 10/05 Surgery PN, Assessment: "Subcutaneous hematoma at incision site" 09/20, 09/22-09/25 PT 13.4, 21.0, 13.0, 12.4, 14.8 INR: 1.3, 2.1, 1.2, 1.2, 1.4 09/21, 09/22 APTT: 53.4, 51.4 10/05 CT Abdomen/Pelvis, Impression: "1.Bibasilar pneumonia. 2. Drainage tube in abscess in the pelvis. 3. Borderline abnormally dilated loops of small intestine in the mid left and left upper quadrant." Treatment: Abdominal binder, hold Lovenox Lovenox 30mg SubQ start 09/23- held 09/26-09/27 resumed 09/28 Heparin titrated drip 09/20-09/22 Aspirin 81mg oral daily start 09/20 Desmopressin Acetate 18mcg once 10/04 Is there an additional diagnosis that is clinically appropriate for this patient? [X ] Hemorrhage/Hematoma due to Heparin and Lovenox [ ] Other, please specify [ ] Unable to determine MTDD
--- NOTE | 2023-09-29 12:09 | P.PN ---
Subjective patient is seen for follow-up for acute kidney injury. History of hemodialysis dependent acute kidney injury with recovery of renal function and patient has been off of dialysis for about 3 weeks now. Patient has been significantly short of breath due to CHF and volume overload. She is maintained on diuretics. Serum creatinine has been slowly increasing and patient was dialyzed yesterday. She tolerated 2.5 L of UF and states that she is feeling better. oxygen requirement decreased to about 4 L today. Objective - Vital Signs Vital signs: Vital Signs Temp 97.7 F 09/29/23 07:21 Pulse 78 09/29/23 11:35 Resp 17 09/29/23 07:21 BP 157/99 09/29/23 07:21 Pulse Ox 98 09/29/23 07:53 FiO2 35 09/21/23 20:21 Intake & Output 09/28/23 09/29/23 09/29/23 18:59 06:59 18:59 Intake Total 500 Output Total 600 5850 10 Balance -600 -5350 -10 Weight 66.5 kg 66.5 kg Intake: Hemodialysis 500 Output: Drainage 50 10 SILVIO Abdomen 50 10 Urine 600 300 Hemodialysis 3000 Hemodialysis Net Amount 2500 Other: Voiding Method Indwelling Catheter Indwelling Catheter - Exam patient is awake, comfortable, mild respiratory distress. Examination of the heart S1 and S2 Examination of the lungs bilateral breath sounds are heard Abdomen is soft nontender Examination of lower extremities shows trace edema. OYSTER HARVESTER exam grossly intact - Labs CBC & Chem 7: 09/29/23 04:27 09/29/23 04:27 Labs: Abnormal Lab Results - Last 24 Hours (Table) 09/28/23 09/29/23 09/29/23 Range/Units 09:38 04:27 04:27 WBC 18.4 H 17.76 H (3.8-10.6) k/uL RBC 2.68 L (4.10-5.20) X 10*6/uL Hgb 7.9 L (12.0-15.0) g/dL Hct 25.1 L (37.2-46.3) % MCHC 31.5 L (32.0-37.0) g/dL RDW 20.3 H (11.5-14.5) % Immature Gran # 0.43 H (0.00-0.04) X 10*3/uL Neutrophils # 16.61 H (1.80-7.70) X 10*3/uL Neutrophils # (Manual) 17.11 H (1.3-7.7) k/uL Lymphocytes # 0.46 L (0.90-5.00) X 10*3/uL Lymphocytes # (Manual) 0.92 L (1.0-4.8) k/uL Eosinophils # 0 L (0.04-0.35) X 10*3/uL Metamyelocytes # (Man) 0.18 H (0) k/uL Myelocytes # (Manual) 0.18 H (0) k/uL Nucleated RBCs 5 H (0-0) /100 WBC NRBC/100 WBC Diff 1.40 H (0.00-0.01) X 10*3/uL Chloride 95 L (96-109) mmol/L Anion Gap 13.50 H (4.00-12.00) mmol/L BUN 33.4 H (9.0-27.0) mg/dL Creatinine 2.0 H (0.6-1.5) mg/dL Est GFR (CKD-EPI) 28 L (>=60) Glucose 152 H (70-110) mg/dL Calcium 8.1 L (8.7-10.3) mg/dL Total Protein 4.3 L (6.2-8.2) g/dL Albumin 2.7 L (3.8-4.9) g/dL Assessment and Plan Assessment: 1. 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 Also component of cardiorenal syndrome. renal function slowly worsening. Creatinine was 1.9 dated September 07, 2023. Patient was hemodialysis dependent but was recently taken off hemodialysis. She still has permacath in place. Ultrasound from June 2023 showed no evidence of hydronephrosis. Creatinine stable today 2.68 likely related to anemia and cardiorenal syndrome. Restarted hemodialysis on 09/28/2023 due to worsening renal function and volume status. 2. ANCA vasculitis maintained on prednisone. Status post 2 doses of IV rituximab 1 g completed August 2023. Maintained on 30 mg of prednisone outpatien t. 3. Acute on chronic systolic CHF ejection fraction of 25 to 30% with severe pulmonary hypertension and moderate tricuspid regurgitation. 4. Acute hypoxic respiratory failure secondary to COPD exacerbation as well as CHF. 5. History of PE maintained on anticoagulation. 6. Anemia. high ferritin noted. 7. Pneumoperitoneum status post diagnostic laparoscopy, sigmoid colectomy with end colostomy 09/23/2023. Plan: continue with Lasix. repeat hemodialysis today and again in a.m.
--- NOTE | 2023-09-29 13:42 | P.PN ---
Subjective Progress Note Date: 09/29/23 CHIEF COMPLAINT: Perforated sigmoid diverticulitis HISTORY OF PRESENT ILLNESS: postop day #6 status post diagnostic laparoscopy with sigmoid colectomy and end colostomy. Patient has had no further bleeding from the incision site. She reports her pain is controlled. She was restarted on hemodialysis yesterday. SILVIO drain with 10 mL serosanguineous output. Afebrile. WBC is down from 18.4-17.76 Hgb 7.9 PHYSICAL EXAM: VITAL SIGNS: Reviewed. GENERAL: no acute distress. ABDOMEN: Soft. mildly distended. Colostomy with pale pink stoma. No stool. There is pinkish, clearish liquid in ostomy bag. No active bleeding at incision site ASSESSMENT: 1. perforated sigmoid diverticulitis PLAN: -Okay to resume Lovenox -Encourage patient to increase activity level -Continue antibiotics -Continue full liquids -GI prophylaxis Protonix and DVT prophylaxis Lovenox Physician Economic Specialist note has been reviewed by physician. Signing provider agrees with the documented findings, assessment, and plan of care. Objective - Vital Signs Vital signs: Vital Signs Temp 97.7 F 09/29/23 07:21 Pulse 78 09/29/23 11:35 Resp 18 09/29/23 13:03 BP 157/99 09/29/23 07:21 Pulse Ox 98 09/29/23 07:53 FiO2 35 09/21/23 20:21 Intake & Output 09/28/23 09/29/23 09/29/23 18:59 06:59 18:59 Intake Total 500 650 Output Total 600 5850 10 Balance -600 -5350 640 Weight 66.5 kg 66.5 kg Intake: Oral 650 Hemodialysis 500 Output: Drainage 50 10 SILVIO Abdomen 50 10 Urine 600 300 Hemodialysis 3000 Hemodialysis Net Amount 2500 Other: Voiding Method Indwelling Catheter Indwelling Catheter Indwelling Catheter - Labs CBC & Chem 7: 09/29/23 04:27 09/29/23 04:27 Labs: Abnormal Lab Results - Last 24 Hours (Table) 09/29/23 09/29/23 Range/Units 04:27 04:27 WBC 17.76 H (4.50-10.00) X 10*3/uL RBC 2.68 L (4.10-5.20) X 10*6/uL Hgb 7.9 L (12.0-15.0) g/dL Hct 25.1 L (37.2-46.3) % MCHC 31.5 L (32.0-37.0) g/dL RDW 20.3 H (11.5-14.5) % Immature Gran # 0.43 H (0.00-0.04) X 10*3/uL Neutrophils # 16.61 H (1.80-7.70) X 10*3/uL Lymphocytes # 0.46 L (0.90-5.00) X 10*3/uL Eosinophils # 0 L (0.04-0.35) X 10*3/uL NRBC/100 WBC Diff 1.40 H (0.00-0.01) X 10*3/uL Chloride 95 L (96-109) mmol/L Anion Gap 13.50 H (4.00-12.00) mmol/L BUN 33.4 H (9.0-27.0) mg/dL Creatinine 2.0 H (0.6-1.5) mg/dL Est GFR (CKD-EPI) 28 L (>=60) Glucose 152 H (70-110) mg/dL Calcium 8.1 L (8.7-10.3) mg/dL Total Protein 4.3 L (6.2-8.2) g/dL Albumin 2.7 L (3.8-4.9) g/dL
[2023-09-29] MEDS: methylPREDNISolone SOD SUCCI 40 MG/ML 1 ML VIAL IV SCH (17:39)
[2023-09-29] MEDS: SYMBICORT 160-4.5 MCG INHALER INHALATION SCH (20:47)
[2023-09-29] MEDS: FUROSEMIDE 10 MG/ML 10 ML VIAL IV SCH (21:30)
[2023-09-30 08:38] LABS: ALT 27 U/L (8-44); AST 30 U/L (13-35); Albumin 2.6 g/dL (3.8-4.9); Albumin/Globulin Ratio 1.73 Ratio (1.60-3.17); Alkaline Phosphatase 66 U/L (41-126); BUN/Creat Ratio 17.81 Ratio (12.00-20.00); Blood Urea Nitrogen 46.3 mg/dL (9.0-27.0); Carbon Dioxide 24.2 mmol/L (21.6-31.8); Chloride 97 mmol/L (96-109); Globulin 1.5 g/dL (1.6-3.3); Glucose 160 mg/dL (70-110); Potassium 3.8 mmol/L (3.5-5.5); Sodium 137 mmol/L (135-145); Total Bilirubin 0.2 mg/dL (0.3-1.2); Total Protein 4.1 g/dL (6.2-8.2)
[2023-09-30 08:43] LABS: Basophils # (A) 0.03 X 10*3/uL (0.00-0.10); Basophils % (A) 0.2 %; Eosinophils # (A) 0 X 10*3/uL (0.04-0.35); Eosinophils % (A) 0 %; HCT 23.7 % (37.2-46.3); HGB 7.5 g/dL (12.0-15.0); Lymphocytes # (A) 0.36 X 10*3/uL (0.90-5.00); Lymphocytes % (A) 1.8 %; MCHC 31.6 g/dL (32.0-37.0); MCV 94.8 FL (80.0-97.0); Mean Platelet Volume 10.7 FL (9.5-12.2); Monocytes # (A) 0.31 X 10*3/uL (0.20-1.00); Monocytes % (A) 1.6 %; NRBC Per 100 WBC 1.42 X 10*3/uL (0.00-0.01); Neutrophils # (A) 18.36 X 10*3/uL (1.80-7.70); Neutrophils % (A) 93.2 %; Platelet Count 225 X 10*3/uL (140-440); RDW 20.3 % (11.5-14.5); WBC 19.69 X 10*3/uL (4.50-10.00)
--- NOTE | 2023-09-30 10:29 | P.PN ---
Subjective Progress Note Date: 09/30/23 This is a 63-year-old female patient of Dr. Daniels who presented to the ER with concerns of increased shortness of breath. Patient was recently admitted at [facility] last week for similar symptoms but did leave AMA prior to completion of treatment. Patient was alsopatient was also recently admitted recently admitted and transferred to [facility] and transferred to [facility] due to diagnosis of vasculitis and required hemodialysis during the hospital stay patient also had episode of pulmonary embolism in which she was started on Coumadin. Patient recently had hemodialysis catheter DC'd.. Additional medical history includes COPD and ex-smoker. Chest x-ray completed in ER showing COPD with superimposed interstitial opacities possible interstitial pulmonary edema versus atypicalCOPD with superimposed interstitial bases possible interstitial pulmonary edema versus atypical pneumonitis. Lab work revealing BNP level 60,000.. [id number] 0.205, 0.403 and 0.521. Creatinine 1.56 bun 47. White blood cell 27.9 hemoglobin 10.5 . Patient was started on Zithromax and Rocephin. Given dose of IV Lasix. Started on heparin drip for elevated troponins. Cardiology pulmonary and nephrology services consulted. Cardiology pulmonary and nephrology service is consulted. Current vital signs Temp 97.3, heart rate 95, respiratory rate 18, blood pressure 143/88 with a pulse ox of 96% on 2 L. On 09/23/2023 patient was seen and examined on the medical floor she is alert and oriented x 3 in no apparent distress, she started complaining of severe abdominal pain in the bilateral lower quadrants this morning, otherwise she denies any complaints there is no fever or chills no headache or dizziness no chest pain no shortness of breath no cough no nausea or vomiting no diarrhea no blood in the stools no burning with urination no frequency or urgency and no hematuria, CT scan of the abdomen and pelvis without contrast was ordered, will follow closely On 09/24/2023 Patient's alert and oriented 3. Patient is status post diagnostic laparoscopy sigmoid colectomy with end colostomy secondary to perforated sigmoid diverticulitis. Patient is currently postop day 1. Patient was transferred to the intensive care unit postoperatively but has been extubated to 2 L. Patient remains on IV Zosyn. Vertical care, nephrology, surgical, infectious disease service is following. Patient denies chest pain or shortness breath. Patient denies nausea vomiting or diarrhea. Burning or frequency On 09/25/2023 patient was seen and examined on the medical floor, she is alert and oriented x 3 in no apparent distress, there is no fever or chills no headache or dizziness no chest pain no shortness of breath no cough no nausea or vomiting no abdominal pain no diarrhea and no urinary symptoms, patient was noticed by her nurse to have an equal pupils, patient denies any previous knowl edge of abnormal pupil size, CT scan of the brain and neurology consultation will be initiated, hemoglobin today is down to 6.7 and patient will be given 1 unit of red blood cells. On 09/26/2023 patient is alert and oriented x 3. Patient has been tolerating full liquid diet. Patient el on IV Zosyn. Neurology services are following. Current vital signs Temp 98.2, rate 85, respiratory rate 15, blood pressure 151/89 with a pulse ox of 95% on 2 L. Patient denies chest pain or shortness of breath. Patient denies nausea vomiting or diarrhea. Patient denies any urinary burning or frequency. On 09/27/2023 patient was seen and examined on the medical floor, she is alert and oriented x 3 in no distress she denies any symptoms at this time there is no fever or chills, no headache or dizziness no chest pain no shortness of breath no cough no nausea or vomiting no abdominal pain no diarrhea no urinary symptoms On 09/28/2023 patient was seen and examined on the medical floor she is alert and oriented in no apparent distress there is no fever or chills no headache or dizziness no chest pain no shortness of breath no cough no nausea or vomiting no abdominal pain no diarrhea no urinary symptoms multiple specialist input reviewed today will follow in a.m. on 09/29/2023atient is alert and oriented 3. Patient underwent hemodialysis yesterday patient remains on IV steroids at [facility] and Zosyn. White blood cell trending down 17.76.current vital signs temp 97.7, heart rate 84, resp iratory rate 17, blood pressure 157/99 with pulse ox 98% on 4 L on 09/29/2024 patient's alert and oriented 3 patientto have hemodialysis today. Creatinine 2.6 bun 46.3.patient remains on Zosyn, Diflucan and daptomycin. Patient also remains on IV Lasix. Patient maintained on full liquid diet per surgical services. This time patient denies chest pain or shortness of breath. Patient denies nausea vomiting or diarrhea. Patient denies any urinary burning or frequency Objective - Vital Signs Vital signs: Vital Signs Temp 97.3 F L 09/30/23 07:21 Pulse 78 09/30/23 08:05 Resp 18 09/30/23 07:21 BP 158/55 09/30/23 07:21 Pulse Ox 93 L 09/30/23 07:53 FiO2 35 09/21/23 20:21 Intake & Output 09/29/23 09/30/23 09/30/23 18:59 06:59 18:59 Intake Total 1150 Output Total 300 610 Balance 850 -610 Weight 66.7 kg Intake: Oral 1150 Output: Drainage 175 145 SILVIO Abdomen 175 145 Urine 125 450 Uretheral (Hadley) 450 Stool 15 Other: Voiding Method Indwelling Catheter Indwelling Catheter - Exam Physical examHead normocephalic Neck supple Lungs diminished bilaterally Heart regular rate and rhythm S1-S2, no rub or gallop Abdomen is soft with mild diffuse tenderness especially in the pelvic area bilat erally no organomegaly no palpable masses Extremities no edema Neuro alert and orientated to 3 - Labs CBC & Chem 7: 09/30/23 06:13 09/30/23 06:13 Labs: Abnormal Lab Results - Last 24 Hours (Table) 09/30/23 09/30/23 Range/Units 06:13 06:13 WBC 19.69 H (4.50-10.00) X 10*3/uL RBC 2.50 L (4.10-5.20) X 10*6/uL Hgb 7.5 L (12.0-15.0) g/dL Hct 23.7 L (37.2-46.3) % MCHC 31.6 L (32.0-37.0) g/dL RDW 20.3 H (11.5-14.5) % Immature Gran # 0.63 H (0.00-0.04) X 10*3/uL Neutrophils # 18.36 H (1.80-7.70) X 10*3/uL Lymphocytes # 0.36 L (0.90-5.00) X 10*3/uL Eosinophils # 0 L (0.04-0.35) X 10*3/uL NRBC/100 WBC Diff 1.42 H (0.00-0.01) X 10*3/uL Anion Gap 15.80 H (4.00-12.00) mmol/L BUN 46.3 H (9.0-27.0) mg/dL Creatinine 2.6 H (0.6-1.5) mg/dL Est GFR (CKD-EPI) 20 L (>=60) Glucose 160 H (70-110) mg/dL Calcium 8.0 L (8.7-10.3) mg/dL Total Bilirubin 0.2 L (0.3-1.2) mg/dL Total Protein 4.1 L (6.2-8.2) g/dL Albumin 2.6 L (3.8-4.9) g/dL Globulin 1.5 L (1.6-3.3) g/dL Assessment and Plan Assessment: Acute hypoxic respiratory failure secondary to acute exacerbation of COPD and acute systolic congestive heart failure Acute exacerbation of COPD. Patient started on IV steroids Acute systolic congestive heart failure Perforated sigmoid diverticulitis status post sigmoid colectomy with end colostomy on 09/23/2023 Elevated troponins, likely related to renal failure, seen by cardiology no intervention recommended at this time Acute on chronic kidney disease Recent diagnosis of vasculitis at [facility] Recent history of PE/DVT maintained on Coumadin History of cardiomyopathy with EF of 15 to 20% History of tobacco abuse recently quit Unequal pupil size. Neurology service is following DVT prophylaxis lovenox. GI prophylaxis Protonix Pulmonary, cardiology and nephrology services consulted Patient started on IV steroids and IV antibiotics patient started back on hemodialysis
--- NOTE | 2023-09-30 11:47 | P.PN ---
Subjective Progress Note Date: 09/29/23 09/29/2023: Patient was seen for a follow-up. Patient is sitting comfortable in the recliner. Offers no new complaints. Continues to complain about generalized weakness. Patient claims her legs are very weak. Patient believes that weakness is partly related to being in the hospital for so long and sitting in the chair and with minimal activity. No new concerns. 09/28/2023: Patient was seen for a follow-up. Patient states that her legs are getting weaker. She has been in the hospital since last Wednesday, 7 days ago. Patient was able to tell me that she has received rituximab infusion in July 2023 as well as on 08/26/2023 for vasculitis. Patient is getting ready for hemodialysis. 09/27/2023: Patient is a 63-year-old female with recent diagnosis of vasculitis (since June 2023) with multiple organ dysfunction. Patient has anisocoria abou t 1 mm difference between her eyes. No headache, visual disturbance. Patient does not want to proceed with MRI or additional workup. Patient was seen for a follow-up. Patient is sitting comfortably in the recliner. Patient denies any headache any numbness or tingling, denies any strokelike symptoms. Her vision is "good". Patient says that she was diagnosed with vasculitis and [facility]. She had some IV infusion 2 to treat her vasculitis, the name she does not remember says something starts with "Vitr". Patient developed acute renal failure on 06/30/2023 and was started on hemodialysis shortly after. Some of the workup during this hospital visit consisted of: White blood cell on presentation is 27,000 and is trending down. Hemoglobin is 6.7 and today is 8.6 Most recent creatinine is 2.4. It is drastically better compared to 06/29/2023. Per recent TSH on 07/05/2023 is 3.73 which is normal CK level 25 CT head: It is reported as no acute intracranial process. Nonspecific white matter changes, likely secondary due to chronic small vessel ischemic disease. I personally reviewed the CT and I agree with the report. Carotid duplex: Less than 50% stenosis bilateral carotid bifurcation Objective - Vital Signs Vital signs: Vital Signs Temp 97.3 F L 09/30/23 07:21 Pulse 80 09/30/23 11:05 Resp 18 09/30/23 07:21 BP 158/55 09/30/23 07:21 Pulse Ox 93 L 09/30/23 07:53 FiO2 35 09/21/23 20:21 Intake & Output 09/29/23 09/30/23 09/30/23 18:59 06:59 18:59 Intake Total 1150 Output Total 300 610 Balance 850 -610 Weight 66.7 kg Intake: Oral 1150 Output: Drainage 175 145 SILVIO Abdomen 175 145 Urine 125 450 Uretheral (Hadley) 450 Stool 15 Other: Voiding Method Indwelling Catheter Indwelling Catheter - Exam On examination patient is a late middle aged female, sitting comfortably in the recliner, in no distress. Patient is alert and oriented 4. Speech and language functions are normal. Cranial nerves are significant for very mild anisocoria. The left pupil is slightly larger than the right. Both are reactive. Visual gomez are full on confrontation. Extraocular muscles intact with no nystagmus. Facial strength is normal. Hearing is normal. Tongue protrudes the midline. Sensations are equal. No pronator drift. The muscle strength is (right/left) deltoid 5-4+/5-4+, biceps 4/4, triceps 4+/4+, plunket nurse 5-/5-, hip flexion 1-2/1-2, hip adduction 4/4, hip abduction 4/4+, knee extension 4/4-, ankle dorsiflexion 4/4. Deep tendon reflexes are (right/left) biceps 1+/trace, brachioradialis 1+/1, and triceps trace/trace, knee 0/0, ankles 0/0 and plantars are flat. No ataxia in the upper limbs. - Labs CBC & Chem 7: 09/30/23 06:13 09/30/23 06:13 Labs: Abnormal Lab Results - Last 24 Hours (Table) 09/30/23 09/30/23 Range/Units 06:13 06:13 WBC 19.69 H (4.50-10.00) X 10*3/uL RBC 2.50 L (4.10-5.20) X 10*6/uL Hgb 7.5 L (12.0-15.0) g/dL Hct 23.7 L (37.2-46.3) % MCHC 31.6 L (32.0-37.0) g/dL RDW 20.3 H (11.5-14.5) % Immature Gran # 0.63 H (0.00-0.04) X 10*3/uL Neutrophils # 18.36 H (1.80-7.70) X 10*3/uL Lymphocytes # 0.36 L (0.90-5.00) X 10*3/uL Eosinophils # 0 L (0.04-0.35) X 10*3/uL NRBC/100 WBC Diff 1.42 H (0.00-0.01) X 10*3/uL Anion Gap 15.80 H (4.00-12.00) mmol/L BUN 46.3 H (9.0-27.0) mg/dL Creatinine 2.6 H (0.6-1.5) mg/dL Est GFR (CKD-EPI) 20 L (>=60) Glucose 160 H (70-110) mg/dL Calcium 8.0 L (8.7-10.3) mg/dL Total Bilirubin 0.2 L (0.3-1.2) mg/dL Total Protein 4.1 L (6.2-8.2) g/dL Albumin 2.6 L (3.8-4.9) g/dL Globulin 1.5 L (1.6-3.3) g/dL Assessment and Plan Assessment: This is a 63-year-old woman who was 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 During this admission she was found to have unequal pupils left slightly bigger than the right but she denies of any headache visual disturbance difficulty swallowing. Anisocoria left pupil is 4 mm and the right is 3 mm and both reactive to light and denies any headache or visual disturbance: Unsure exact etiology. Possible physiological since only 1mm difference vs medication iduced ?(on nebulizers) vs ?vasculitis. CT head and carotid duplex are unremarkable. Recent perforated sigmoid diverticulitis status post diagnostic laparoscopy with sigmoid colectomy and end colostomy on 09/23/2023 Recent diagnosis of vasculitis and had kidney biopsy at [facility] in June 2023 Acute kidney injury since June 2023 and patient required temporary dialysis which she completed and kidneys are improving but not back to baseline Anemia Has significant bilateral lower extremity weakness more than upper since June 2023. Although patient initially mentioned that her strength is improving, but now states arms and legs are getting weaker. Exact cause is uncertain. Rule out polyneuropathy/CIDP. Cardiomyopathy and ejection fraction of 25 to 30% since she had vasculitis History of recent pulmonary embolism DVT and is on Coumadin History of COPD Ex tobacco user Plan: KATIE negative, SSA/SSB negative, anti-Hurst antibodies negative, OPTICAL SCIENTIST antibodies negative. The patient is on methylprednisolone tapering dose of 40 mg IV every 8 hours, as per pulmonary team. Patient does not want any further or escalation of work-up for her anisocoria at this time otherwise. Does not want MRI Brain and does not want to pursue with temporal biopsy. I highly doubt giant cell arteritis. Patient is in agreement if has any headache or visual disturbance then will proceed with work-up. Recommend the patient to be evaluated by Medical Office Assistant Instructor as outpatient within 2- 3 weeks. Patient believes she is getting weaker in her arms and legs. Patient will need EMG and nerve conductions of upper and lower extremities to evaluate for polyneuropathy. I discussed with patient about performing lumbar puncture to rule out elevated proteins, which may suggest an inflammatory component. Patient completely declined lumbar puncture. We will observe her clinically. She again declined LP today. Pulmonary team is on board, ID team is on board, nephrology team is on board and cardiology team is on board Will defer the rest of the medical management to primary and other specialist Recommend patient follow-up with neurologist outpatient for EMG testing. DVT prophylaxis: Patient on Lovenox 60 mg every 24 hours.
[2023-09-30 12:09] LABS: INR 1.4 (<1.2); Prothrombin Time 14.3 sec (10.0-12.5)
--- NOTE | 2023-09-30 12:45 | P.PN ---
Subjective Progress Note Date: 09/30/23 This is a 63-year-old female patient with a known history of chronic obstructive pulmonary disease, former smoker, previous acute kidney injury requiring dialysis that she completed approximately 2 weeks ago. She presented here to the emergency room today with increasing shortness of breath. Symptoms started just this morning. No fever or chills. No cough or congestion. Mainly dyspnea on minimal exertion. Chest x-ray reveals evidence of COPD with superimposed interstitial opacities, possible pulmonary edema versus atypical pneumonia. White count 27.9. Hemoglobin 10.5. Platelets 294. INR 1.3. Sodium 136. Potassium 4.3. Bicarb 30. BUN 47. Creatinine 1.56. Glucose 196. Troponin 0.205. proBNP 60,000. The patient is seen in consultation in the emergency department. She is currently sitting up on the stretcher. Awake and alert. On BiPAP 14/5 and 40% FiO2 to maintain O2 saturations in the 90s. Been initiated on a heparin drip. Initiated on antibiotics, bronchodilators and steroids. The patient is seen today September 22, 2023 in follow-up in the emergency department. She is awake and alert in no acute distress. Breathing easier today compared to yesterday. She is maintaining good O2 saturations in the 90s on 2 L/min per nasal cannula. She has been off the BiPAP. She remains on a heparin drip. Peak troponin 0.521. She is continued on DuoNeb inhalations, Symbicort, Solu-Medrol. She is continued on ceftriaxone. Chest x-ray shows diffuse interstitial opacities with slight improvement. The patient is seen today September 27, 2023 in follow-up on the regular medical [facility] or. She is currently sitting up in a chair. Awake and alert in no acute distress. She is still receiving oxygen at 6 L/min per nasal cannula. Lactated Ringer's at 75 MLS per hour. She did have an episode of shortness of breath and anxiety last evening. She states she is feeling better today. X-ray reveals evidence of fluid volume overload. No focal consolidation, pneumothorax or pleural effusion. Right internal jugular catheter in place. She is status post 1 unit of packed red blood cells and 2 units of fresh frozen plasma this admission. Abdominal fluid cultures were positive for bacteroids. Wound culture positive for Enterococcus faecium VRE, Enterococcus faecalis VRE and Cha. White count 20.1. Hemoglobin 8.7. Platelets 227. Sodium 135. Potassium 5.8. Bicarb 23. BUN 63. Creatinine 2.46. Glucose 124. She is continued on DuoNeb inhalations, Symbicort, daptomycin and Zosyn. Lovenox for DVT prophylaxis. The patient is seen today September 28, 2023 in follow-up on the regular medical floor. She is currently resting in bed. Awake and alert in no acute distress. Feeling better today compared to yesterday. She is maintaining good O2 saturations in the 90s on 4 L/min per nasal cannula. No IV fluids. She is continued on daptomycin and Zosyn. Chest x-ray reveals right pleural effusion with pulmonary vascular congestion. Left lung is relatively clear. She remains on DuoNeb ventilations, Pulmicort and Perforomist inhalations, Solu-Medrol. Lovenox for DVT prophylaxis. Sodium 131. Potassium 5.1. Bicarb 23. BUN 69. Creatinine 2.68. Glucose 146. She was given Lasix 60 mg IVP x 1. She is currently in a -1.5 L balance. The patient is seen today September 29, 2023 in follow-up on the regular medical floor. She is currently sitting up in bed. Awake and alert in no acute distress. Maintaining good O2 saturations in the 90s on 4 L/min per nasal neida sorin. She is status post 1 unit of packed red blood cells and 2 units of platelets fresh frozen plasma this admission. Abdominal fluid and wound cultures were positive for Enterococcus faecium VRE, Enterococcus faecalis VRE, Cha. White count 17.7. Hemoglobin 7.9. Platelets 233. Sodium 136. Potassium 3.5. Bicarb 27. BUN 33. Creatinine 2.0. Glucose 152. She remains on DuoNeb inhalations, Pulmicort and Perforomist inhalations, Solu-Medrol. Antibiotics in the form of daptomycin and Zosyn. The patient is seen today September 30, 2023 in follow-up on the regular medical floor. She is resting comfortably in bed. Maintaining good O2 saturations in the 90s on 5 L/min per nasal cannula. She is status post 1 unit of packed red blood cells and 2 fresh frozen plasma this admission. Abdominal cultures were positive for Enterococcus faecium and Enterococcus faecalis both VRE. White cou nt 19.6. Hemoglobin 7.5. Platelets 225. INR 1.4. Sodium 137. Potassium 3.8. Bicarb 24. BUN 46. Creatinine 2.6. Glucose 160. She is continued on DuoNeb inhalations, Symbicort, Solu-Medrol. Antibiotics in the form of Zosyn and daptomycin. Lovenox for DVT prophylaxis. Currently on Lasix 60 mg IV every 12 hours. Currently in a -5.9 L balance. Objective - Vital Signs Vital signs: Vital Signs Temp 97.3 F L 09/30/23 07:21 Pulse 80 09/30/23 11:05 Resp 18 09/30/23 07:21 BP 158/55 09/30/23 07:21 Pulse Ox 93 L 09/30/23 07:53 FiO2 35 09/21/23 20:21 Intake & Output 09/29/23 09/30/23 09/30/23 18:59 06:59 18:59 Intake Total 1150 Output Total 300 610 Balance 850 -610 Weight 66.7 kg Intake: Oral 1150 Output: Drainage 175 145 SILVIO Abdomen 175 145 Urine 125 450 Uretheral (Hadley) 450 Stool 15 Other: Voiding Method Indwelling Catheter Indwelling Catheter - Exam GENERAL EXAM: Alert, pleasant 63-year-old female, resting in bed, on 5 L/min per nasal cannula, in no apparent distress. HEAD: Normocephalic. EYES: Normal reaction of pupils, equal size. NOSE: Clear with pink turbinates. THROAT: No erythema or exudates. NECK: No masses, no JVD. CHEST: No chest wall deformity. LUNGS: Equal air entry with bibasilar crackles, diminished. CVS: S1 and S2 normal with no audible murmur, regular rhythm. ABDOMEN: Colostomy with pink stoma. No stool. Pinkish clear liquid. Incisional drainage noted on the lower aspect of the dressing. SPINE: No scoliosis or deformity SKIN: No rashes CENTRAL NERVOUS SYSTEM: No focal deficits, tone is normal in all 4 extremities. EXTREMITIES: There is 1+ peripheral edema. No clubbing, no cyanosis. Peripheral pulses are intact. - Labs CBC & Chem 7: 09/30/23 06:13 09/30/23 06:13 Labs: Abnormal Lab Results - Last 24 Hours (Table) 09/30/23 09/30/23 09/30/23 Range/Units 06:13 06:13 11:23 WBC 19.69 H (4.50-10.00) X 10*3/uL RBC 2.50 L (4.10-5.20) X 10*6/uL Hgb 7.5 L (12.0-15.0) g/dL Hct 23.7 L (37.2-46.3) % MCHC 31.6 L (32.0-37.0) g/dL RDW 20.3 H (11.5-14.5) % Immature Gran # 0.63 H (0.00-0.04) X 10*3/uL Neutrophils # 18.36 H (1.80-7.70) X 10*3/uL Lymphocytes # 0.36 L (0.90-5.00) X 10*3/uL Eosinophils # 0 L (0.04-0.35) X 10*3/uL NRBC/100 WBC Diff 1.42 H (0.00-0.01) X 10*3/uL PT 14.3 H (10.0-12.5) sec INR 1.4 H (<1.2) Anion Gap 15.80 H (4.00-12.00) mmol/L BUN 46.3 H (9.0-27.0) mg/dL Creatinine 2.6 H (0.6-1.5) mg/dL Est GFR (CKD-EPI) 20 L (>=60) Glucose 160 H (70-110) mg/dL Calcium 8.0 L (8.7-10.3) mg/dL Total Bilirubin 0.2 L (0.3-1.2) mg/dL Total Protein 4.1 L (6.2-8.2) g/dL Albumin 2.6 L (3.8-4.9) g/dL Globulin 1.5 L (1.6-3.3) g/dL Assessment and Plan Assessment: Acute hypoxemic respiratory failure secondary to an acute exacerbation of chronic obstructive pulmonary disease, acute systolic congestive heart failure Status post exploratory laparotomy, sigmoid colectomy, and end sigmoid colostomy for ruptured sigmoid diverticulum on September 23, 2023. Cultures positive for bacteroids. Enterococcus faecium VRE, Enterococcus faecalis VRE, Cha. Currently on daptomycin and Zosyn Acute kidney injury secondary to ANCA vasculitis and cardiorenal syndrome p reviously on hemodialysis. Permacath still in place and restarted on hemodialysis 09/28/2023 Leukocytosis Anemia requiring 1 unit of packed red blood cells this admission. Current hemoglobin 7.5 Severe cardiomyopathy with an ejection fraction of 25-30 % History of chronic obstructive pulmonary disease Chronic tobacco dependence ANCA vasculitis and was to have had a kidney biopsy in June 2023 unclear if this was done History of PE/DVT, on Lovenox postoperatively Plan: The patient was seen and evaluated Labs and medications reviewed Remains on IV diuretics Titrate down the FiO2 as tolerated Continue incentive spirometer and flutter valve Continue DuoNeb inhalations, Symbicort, Solu-Medrol Continue daptomycin and Zosyn Increase her activity as tolerated Plan is for [facility] at discharge This patient was seen independently by the pulmonary nurse practitioner addr alexis pulmonary issues I have personally seen and examined the patient, performed the documentation and the assessment and plan as written. Number of minutes spent on the visit: 23.
--- NOTE | 2023-09-30 12:52 | P.PN ---
Subjective Progress Note Date: 09/30/23 CHIEF COMPLAINT: Perforated sigmoid diverticulitis HISTORY OF PRESENT ILLNESS: postop day #7 status post diagnostic laparoscopy with sigmoid colectomy and end colostomy. Patient started stool output through her ostomy yesterday. Her pain is controlled. She denies any nausea or vomiting. She is tolerating diet. SILVIO drain 80 mL serosanguineous output. Afebrile. WBC is up from 17-19 HGB 7.5 plt 225 Medicine service is resuming Coumadin and patient on Lovenox for history of DVT and PE PHYSICAL EXAM: VITAL SIGNS: Reviewed. GENERAL: no acute distress. ABDOMEN: Soft. nondistended. ostomy with stool present ASSESSMENT: 1. perforated sigmoid diverticulitis PLAN: -Advance diet to low fiber -Encourage patient to increase activity level -Continue antibiotics -GI prophylaxis Protonix Physician [employer] Cell Battery Technician note has been reviewed by physician. Signing provider agrees with the documented findings, assessment, and plan of care. Objective - Vital Signs Vital signs: Vital Signs Temp 97.3 F L 09/30/23 07:21 Pulse 82 09/30/23 10:44 Resp 18 09/30/23 07:21 BP 158/55 09/30/23 07:21 Pulse Ox 93 L 09/30/23 07:53 FiO2 35 09/21/23 20:21 Intake & Output 09/29/23 09/30/23 09/30/23 18:59 06:59 18:59 Intake Total 1150 Output Total 300 610 Balance 850 -610 Weight 66.7 kg Intake: Oral 1150 Output: Drainage 175 145 SILVIO Abdomen 175 145 Urine 125 450 Uretheral (Hadley) 450 Stool 15 Other: Voiding Method Indwelling Catheter Indwelling Catheter - Labs CBC & Chem 7: 09/30/23 06:13 09/30/23 06:13 Labs: Abnormal Lab Results - Last 24 Hours (Table) 09/30/23 09/30/23 Range/Units 06:13 06:13 WBC 19.69 H (4.50-10.00) X 10*3/uL RBC 2.50 L (4.10-5.20) X 10*6/uL Hgb 7.5 L (12.0-15.0) g/dL Hct 23.7 L (37.2-46.3) % MCHC 31.6 L (32.0-37.0) g/dL RDW 20.3 H (11.5-14.5) % Immature Gran # 0.63 H (0.00-0.04) X 10*3/uL Neutrophils # 18.36 H (1.80-7.70) X 10*3/uL Lymphocytes # 0.36 L (0.90-5.00) X 10*3/uL Eosinophils # 0 L (0.04-0.35) X 10*3/uL NRBC/100 WBC Diff 1.42 H (0.00-0.01) X 10*3/uL Anion Gap 15.80 H (4.00-12.00) mmol/L BUN 46.3 H (9.0-27.0) mg/dL Creatinine 2.6 H (0.6-1.5) mg/dL Est GFR (CKD-EPI) 20 L (>=60) Glucose 160 H (70-110) mg/dL Calcium 8.0 L (8.7-10.3) mg/dL Total Bilirubin 0.2 L (0.3-1.2) mg/dL Total Protein 4.1 L (6.2-8.2) g/dL Albumin 2.6 L (3.8-4.9) g/dL Globulin 1.5 L (1.6-3.3) g/dL
--- NOTE | 2023-09-30 13:04 | P.PN ---
Subjective patient is seen for follow-up for acute kidney injury. History of hemodialysis dependent acute kidney injury with recovery of renal function and patient has been off of dialysis for about 3 weeks now. Restarted on dialysis this admission. Patient has been significantly short of breath due to CHF and volume overload. She is maintained on diuretics. Serum creatinine has been slowly increasing and patient was restarted on hemodialysis on 09/28/2023. She tolerated 2.5 L of UF and states that she is feeling better. Oxygen requirement decreased but patient remains quite debilitated. There are plans for discharge to subacute rehab Objective - Vital Signs Vital signs: Vital Signs Temp 97.3 F L 09/30/23 07:21 Pulse 80 09/30/23 11:05 Resp 18 09/30/23 07:21 BP 158/55 09/30/23 07:21 Pulse Ox 93 L 09/30/23 07:53 FiO2 35 09/21/23 20:21 Intake & Output 09/29/23 09/30/23 09/30/23 18:59 06:59 18:59 Intake Total 1150 Output Total 300 610 Balance 850 -610 Weight 66.7 kg Intake: Oral 1150 Output: Drainage 175 145 SILVIO Abdomen 175 145 Urine 125 450 Uretheral (Hadley) 450 Stool 15 Other: Voiding Method Indwelling Catheter Indwelling Catheter - Exam patient is awake, comfortable, mild respiratory distress. Examination of the heart S1 and S2 Examination of the lungs bilateral breath sounds are heard Abdomen is soft nontender Examination of lower extremities shows trace edema. ELECTRONIC SECURITY TECHNICIAN exam grossly intact - Labs CBC & Chem 7: 09/30/23 06:13 09/30/23 06:13 Labs: Abnormal Lab Results - Last 24 Hours (Table) 09/30/23 09/30/23 09/30/23 Range/Units 06:13 06:13 11:23 WBC 19.69 H (4.50-10.00) X 10*3/uL RBC 2.50 L (4.10-5.20) X 10*6/uL Hgb 7.5 L (12.0-15.0) g/dL Hct 23.7 L (37.2-46.3) % MCHC 31.6 L (32.0-37.0) g/dL RDW 20.3 H (11.5-14.5) % Immature Gran # 0.63 H (0.00-0.04) X 10*3/uL Neutrophils # 18.36 H (1.80-7.70) X 10*3/uL Lymphocytes # 0.36 L (0.90-5.00) X 10*3/uL Eosinophils # 0 L (0.04-0.35) X 10*3/uL NRBC/100 WBC Diff 1.42 H (0.00-0.01) X 10*3/uL PT 14.3 H (10.0-12.5) sec INR 1.4 H (<1.2) Anion Gap 15.80 H (4.00-12.00) mmol/L BUN 46.3 H (9.0-27.0) mg/dL Creatinine 2.6 H (0.6-1.5) mg/dL Est GFR (CKD-EPI) 20 L (>=60) Glucose 160 H (70-110) mg/dL Calcium 8.0 L (8.7-10.3) mg/dL Total Bilirubin 0.2 L (0.3-1.2) mg/dL Total Protein 4.1 L (6.2-8.2) g/dL Albumin 2.6 L (3.8-4.9) g/dL Globulin 1.5 L (1.6-3.3) g/dL Assessment and Plan Assessment: 1. 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 Also component of cardiorenal syndrome. renal function slowly worsening. Creatinine was 1.9 dated September 07, 2023. Patient was hemodialysis dependent but was recently taken off hemodialysis. She still has permacath in place. Ultrasound from June 2023 showed no evidence of hydronephrosis. Restarted hemodialysis on 09/28/2023 due to worsening renal function and volume status. 2. ANCA vasculitis maintained on prednisone. Status post 2 doses of IV rituximab 1 g completed August 2023. Maintained on 30 mg of prednisone outpatient. 3. Acute on chronic systolic CHF ejection fraction of 25 to 30% with severe pulmonary hypertension and moderate tricuspid regurgitation. 4. Acute hypoxic respiratory failure secondary to COPD exacerbation as well as CHF. 5. History of PE maintained on anticoagulation. 6. Anemia. high ferritin noted. 7. Pneumoperitoneum status post diagnostic laparoscopy, sigmoid colectomy with end colostomy 09/23/2023. 8. Volume overload Plan: continue with Lasix. repeat hemodialysis today Repeat chest x-ray post dialysis
[2023-09-30] MEDS: ENOXAPARIN 60 MG/0.6 ML SYRINGE SQ SCH (15:30)
--- NOTE | 2023-09-30 15:33 | P.PN ---
Subjective Progress Note Date: 09/27/23 Principal diagnosis: Reason for follow-up is perforated diverticulitis Patient is a 63-year-old female past medical history significant for COPD vasculitis history of acute kidney injury secondary to ANCA vasculitis presenting to the hospital with shortness of breath and abdominal pain has been diagnosed with a perforated sigmoid diverticulitis in this patient who is status post diagnostic laparoscopic sigmoid colectomy with end colostomy. On today's evaluation that is 09/27/2023,the patient remains to be afebrile, patient is on 4 L nasal cannula supplemental oxygen and denies any shortness of breath no chest pain or cough.Patient denies having any nausea or vomiting, abdominal pain currently controlled no nausea no vomiting. Patient white count is slightly up to 20.1 creatinine is 2.46 Objective - Vital Signs Vital signs: Vital Signs Temp 97.8 F 09/27/23 07:13 Pulse 82 09/27/23 12:12 Resp 18 09/27/23 11:33 BP 149/99 09/27/23 07:13 Pulse Ox 90 L 09/27/23 07:13 FiO2 35 09/21/23 20:21 Intake & Output 09/26/23 09/27/23 09/27/23 18:59 06:59 18:59 Intake Total 200 Output Total 405 620 Balance -405 -620 200 Weight 63.5 kg Intake: Oral 200 Output: Drainage 105 20 SILVIO Abdomen 105 20 Urine 300 600 Other: Voiding Method Indwelling Catheter Indwelling Catheter Indwelling Catheter - Exam GENERAL DESCRIPTION: Middle-aged female lying in bed in no distress RESPIRATORY SYSTEM: Unlabored breathing , decreased breath sounds at bases HEART: S1 S2 regular rate and rhythm , ABDOMEN: Soft , mild tenderness EXTREMITIES: No edema feet - Labs CBC & Chem 7: 09/30/23 06:13 09/30/23 06:13 Labs: Abnormal Lab Results - Last 24 Hours (Table) 09/26/23 09/26/23 09/26/23 Range/Units 20:59 21:27 21:27 WBC 18.5 H (3.8-10.6) k/uL RBC 2.66 L (3.80-5.40) m/uL Hgb 8.2 L (11.4-16.0) gm/dL Hct 26.1 L (34.0-46.0) % RDW 20.3 H (11.5-15.5) % Neutrophils # 17.8 H (1.3-7.7) k/uL Neutrophils # (Manual) 17.90 H (1.3-7.7) k/uL Lymphocytes # 0.5 L (1.0-4.8) k/uL Lymphocytes # (Manual) 0.37 L (1.0-4.8) k/uL Myelocytes # (Manual) 0.19 H (0) k/uL Nucleated RBCs 1 H (0-0) /100 WBC ABG pCO2 46 H (35-45) mmHg ABG pO2 66 L (83-108) mmHg ABG HCO3 28 H (21-25) mmol/L ABG Total CO2 29 H (19-24) mmol/L ABG O2 Saturation 93.1 L (94-97) % Sodium 134 L (137-145) mmol/L Potassium (3.5-5.1) mmol/L BUN 59 H (7-17) mg/dL Creatinine 2.45 H (0.52-1.04) mg/dL Glucose 151 H (74-99) mg/dL AST 37 H (14-36) U/L Total Protein 4.6 L (6.3-8.2) g/dL Albumin 2.6 L (3.5-5.0) g/dL 09/27/23 09/27/23 Range/Units 04:54 04:54 WBC 20.1 H (3.8-10.6) k/uL RBC 2.75 L (3.80-5.40) m/uL Hgb 8.7 L (11.4-16.0) gm/dL Hct 26.8 L (34.0-46.0) % RDW 20.3 H (11.5-15.5) % Neutrophils # (1.3-7.7) k/uL Neutrophils # (Manual) 19.00 H (1.3-7.7) k/uL Lymphocytes # (1.0-4.8) k/uL Lymphocytes # (Manual) 0.60 L (1.0-4.8) k/uL Myelocytes # (Manual) 0.20 H (0) k/uL Nucleated RBCs 2 H (0-0) /100 WBC ABG pCO2 (35-45) mmHg ABG pO2 (83-108) mmHg ABG HCO3 (21-25) mmol/L ABG Total CO2 (19-24) mmol/L ABG O2 Saturation (94-97) % Sodium 135 L (137-145) mmol/L Potassium 5.8 H (3.5-5.1) mmol/L BUN 63 H (7-17) mg/dL Creatinine 2.46 H (0.52-1.04) mg/dL Glucose 124 H (74-99) mg/dL AST 41 H (14-36) U/L Total Protein 4.7 L (6.3-8.2) g/dL Albumin 2.7 L (3.5-5.0) g/dL Microbiology - Last 24 Hours (Table) 09/21/23 14:20 Blood Culture - Final Blood 09/21/23 14:05 Blood Culture - Final Blood 09/23/23 18:51 Gram Stain - Final Other - Other Wound Culture - Final Enterococcus faecium VRE Enterococcus faecalis VRE Cha albicans Assessment and Plan (1) Perforation of sigmoid colon due to diverticulitis Current Visit: Yes Status: Acute Code(s): K57.20 - DVTRCLI OF LG INT W PERFORATION AND ABSCESS W/O BLEEDING SNOMED Code(s): 5505727396341222 (2) Peritonitis Current Visit: Yes Status: Acute Code(s): K65.9 - PERITONITIS, UNSPECIFIED SNOMED Code(s): 14083636 (3) Leukocytosis Current Visit: No Status: Acute Code(s): D72.829 - ELEVATED WHITE BLOOD CELL COUNT, UNSPECIFIED SNOMED Code(s): 657836522 (4) Sepsis Current Visit: Yes Status: Acute Code(s): A41.9 - SEPSIS, UNSPECIFIED ORGANISM SNOMED Code(s): 88894108 Plan: 1patient presented to the hospital with sepsis in this patient who did have a fever tachycardia meeting criteria for SIRS source is likely perforated diverticulitis with peritonitis and need to cover for the enteric gram-negative both aerobes and anaerobes patient also have complaint of increasing shortness of breath and cough CT shows bilateral lower lobe consolidation, possible pneumonia 2-patient is status post diagnostic laparoscopy sigmoid resection and end colostomy abdominal culture currently growing Enterococcus faecium and faecalis 3-patient is afebrile white count slightly up need to monitor closely for now to continue with Zosyn, daptomycin and Diflucan Dictation was produced using [employer] dictation software. please excuse any grammatical, word or spelling errors. Time with Patient: Less than 30
--- NOTE | 2023-09-30 15:34 | P.PN ---
Subjective Progress Note Date: 09/28/23 Principal diagnosis: Reason for follow-up is perforated diverticulitis Patient is a 63-year-old female past medical history significant for COPD vasculitis history of acute kidney injury secondary to ANCA vasculitis presenting to the hospital with shortness of breath and abdominal pain has been diagnosed with a perforated sigmoid diverticulitis in this patient who is status post diagnostic laparoscopic sigmoid colectomy with end colostomy. On today's evaluation that is 09/28/2023, the patient continues to be afebrile, the patient is on 3 L nasal oxygen and breathing comfortably, the Pt denies having any chest pain or cough, the patient denies any worsening nausea vomiting abdominal pain is currently controlled no new symptoms. Patient white count is down to 18.4 creatinine is 2.68 Objective - Vital Signs Vital signs: Vital Signs Temp 97.6 F 09/28/23 13:12 Pulse 89 09/28/23 13:12 Resp 17 09/28/23 13:12 BP 149/100 09/28/23 13:12 Pulse Ox 92 L 09/28/23 07:23 FiO2 35 09/21/23 20:21 Intake & Output 09/27/23 09/28/23 09/28/23 18:59 06:59 18:59 Intake Total 400 Output Total 1395 590 Balance -995 -590 Weight 66.5 kg Intake: Oral 400 Output: Drainage 20 140 SILVIO Abdomen 20 140 Urine 1375 450 Other: Voiding Method Indwelling Catheter Indwelling Catheter Indwelling Catheter - Exam GENERAL DESCRIPTION: Middle-aged female lying in bed in no distress RESPIRATORY SYSTEM: Unlabored breathing , decreased breath sounds at bases HEART: S1 S2 regular rate and rhythm , ABDOMEN: Soft , mild tenderness EXTREMITIES: No edema feet - Labs CBC & Chem 7: 09/30/23 06:13 09/30/23 06:13 Labs: Abnormal Lab Results - Last 24 Hours (Table) 09/28/23 09/28/23 Range/Units 09:38 09:38 WBC 18.4 H (3.8-10.6) k/uL RBC 2.91 L (3.80-5.40) m/uL Hgb 8.7 L (11.4-16.0) gm/dL Hct 27.3 L (34.0-46.0) % RDW 20.1 H (11.5-15.5) % Neutrophils # (Manual) 17.11 H (1.3-7.7) k/uL Lymphocytes # (Manual) 0.92 L (1.0-4.8) k/uL Metamyelocytes # (Man) 0.18 H (0) k/uL Myelocytes # (Manual) 0.18 H (0) k/uL Nucleated RBCs 5 H (0-0) /100 WBC Sodium 131 L (137-145) mmol/L BUN 69 H (7-17) mg/dL Creatinine 2.68 H (0.52-1.04) mg/dL Glucose 146 H (74-99) mg/dL Assessment and Plan (1) Perforation of sigmoid colon due to diverticulitis Current Visit: Yes Status: Acute Code(s): K57.20 - DVTRCLI OF LG INT W PERFORATION AND ABSCESS W/O BLEEDING SNOMED Code(s): 3434064439617793 (2) Peritonitis Current Visit: Yes Status: Acute Code(s): K65.9 - PERITONITIS, UNSPECIFIED SNOMED Code(s): 63468915 (3) Leukocytosis Current Visit: No Status: Acute Code(s): D72.829 - ELEVATED WHITE BLOOD CELL COUNT, UNSPECIFIED SNOMED Code(s): 474433661 (4) Sepsis Current Visit: Yes Status: Acute Code(s): A41.9 - SEPSIS, UNSPECIFIED ORGANISM SNOMED Code(s): 45625489 Plan: 1patient presented to the hospital with sepsis in this patient who did have a fever tachycardia meeting criteria for SIRS source is likely perforated diverticulitis with peritonitis and need to cover for the enteric gram-negative both aerobes and anaerobes patient also have complaint of increasing shortness of breath and cough CT shows bilateral lower lobe consolidation, possible pneumonia 2-patient is status post diagnostic laparoscopy sigmoid resection and end colostomy abdominal culture currently growing Enterococcus faecium and faecalis 3-patient is afebrile white count is trending down down to 18.8 today, patient to continue with Zosyn, daptomycin and Diflucan Dictation was produced using [employer] dictation software. please excuse any gr ammatical, word or spelling errors. Time with Patient: Less than 30
--- NOTE | 2023-09-30 15:39 | P.PN ---
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 On today's evaluation that is 09/30/2023, patient has been afebrile, patient is breathing comfortably and is currently on 5 L nasal cannula oxygen, patient denies having any significant cough no chest pain shortness of breath, patient denies nausea vomiting abdominal pain is controlled with pain medication did have output in the colostomy Patient white count is slightly up to 19.69 today, creatinine is 2.6 Objective - Vital Signs Vital signs: Vital Signs Temp 97.8 F 09/30/23 15:20 Pulse 73 09/30/23 15:20 Resp 17 09/30/23 15:20 BP 159/94 09/30/23 15:20 Pulse Ox 100 09/30/23 15:20 FiO2 35 09/21/23 20:21 Intake & Output 09/29/23 09/30/23 09/30/23 18:59 06:59 18:59 Intake Total 1150 Output Total 300 610 Balance 850 -610 Weight 66.7 kg 66.7 kg Intake: Oral 1150 Output: Drainage 175 145 SILVIO Abdomen 175 145 Urine 125 450 Uretheral ([place]) 450 Stool 15 Other: Voiding Method Indwelling Catheter Indwelling Catheter - Exam GENERAL DESCRIPTION: Middle-aged female lying in bed in no distress RESPIRATORY SYSTEM: Unlabored breathing , decreased breath sounds at bases HEART: S1 S2 regular rate and rhythm , ABDOMEN: Soft , mild tenderness EXTREMITIES: No edema feet - Labs CBC & Chem 7: 09/30/23 06:13 09/30/23 06:13 Labs: Abnormal Lab Results - Last 24 Hours (Table) 09/30/23 09/30/23 09/30/23 Range/Units 06:13 06:13 11:23 WBC 19.69 H (4.50-10.00) X 10*3/uL RBC 2.50 L (4.10-5.20) X 10*6/uL Hgb 7.5 L (12.0-15.0) g/dL Hct 23.7 L (37.2-46.3) % MCHC 31.6 L (32.0-37.0) g/dL RDW 20.3 H (11.5-14.5) % Immature Gran # 0.63 H (0.00-0.04) X 10*3/uL Neutrophils # 18.36 H (1.80-7.70) X 10*3/uL Lymphocytes # 0.36 L (0.90-5.00) X 10*3/uL Eosinophils # 0 L (0.04-0.35) X 10*3/uL NRBC/100 WBC Diff 1.42 H (0.00-0.01) X 10*3/uL PT 14.3 H (10.0-12.5) sec INR 1.4 H (<1.2) Anion Gap 15.80 H (4.00-12.00) mmol/L BUN 46.3 H (9.0-27.0) mg/dL Creatinine 2.6 H (0.6-1.5) mg/dL Est GFR (CKD-EPI) 20 L (>=60) Glucose 160 H (70-110) mg/dL Calcium 8.0 L (8.7-10.3) mg/dL Total Bilirubin 0.2 L (0.3-1.2) mg/dL Total Protein 4.1 L (6.2-8.2) g/dL Albumin 2.6 L (3.8-4.9) g/dL Globulin 1.5 L (1.6-3.3) g/dL Assessment and Plan (1) Perforation of sigmoid colon due to diverticulitis Current Visit: Yes Status: Acute Code(s): K57.20 - DVTRCLI OF LG INT W PERFORATION AND ABSCESS W/O BLEEDING SNOMED Code(s): 3138706443314709 (2) Peritonitis Current Visit: Yes Status: Acute Code(s): K65.9 - PERITONITIS, UNSPECIFIED SNOMED Code(s): 20623387 (3) Leukocytosis Current Visit: No Status: Acute Code(s): D72.829 - ELEVATED WHITE BLOOD CELL COUNT, UNSPECIFIED SNOMED Code(s): 494503840 (4) Sepsis Current Visit: Yes Status: Acute Code(s): A41.9 - SEPSIS, UNSPECIFIED ORGANISM SNOMED Code(s): 78137590 Plan: 1patient presented to the hospital with sepsis in this patient who did have a fever tachycardia meeting criteria for SIRS source is likely perforated dive rticulitis with peritonitis and need to cover for the enteric gram-negative both aerobes and anaerobes patient also have complaint of increasing shortness of breath and cough CT shows bilateral lower lobe consolidation, possible pneumonia 2-patient is status post diagnostic laparoscopy sigmoid resection and end colostomy abdominal culture currently growing Enterococcus faecium and faecalis and Cha 3-patient is afebrile white count is up to 19.69 today more likely related to steroid as the patient is on Solu-Medrol as no evidence of any worsening infection 4-patient to continue with Zosyn, daptomycin and Diflucan and will monitor clinical course closely Dictation was produced using [employer] dictation software. please excuse any grammatical, word or spelling errors. Time with Patient: Less than 30
--- NOTE | 2023-09-30 15:39 | P.PN ---
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 On today's evaluation that is 09/29/2023, Patient is afebrile patient is currently on 4 L nasal cannula oxygen and denies having any shortness of breath, the patient denies any chest pain or cough, the patient did have some nausea but no vomiting abdominal pain is controlled with pain medication did have output in colostomy. Patient white count is down to 17.76 creatinine is 2.0 Objective - Vital Signs Vital signs: Vital Signs Temp 97.4 F 09/29/23 14:02 Pulse 73 09/29/23 14:02 Resp 18 09/29/23 14:02 BP 143/80 09/29/23 14:02 Pulse Ox 97 09/29/23 14:02 FiO2 4L 09/29/23 14:02 - Exam GENERAL DESCRIPTION: Middle-aged female lying in bed in no distress RESPIRATORY SYSTEM: Unlabored breathing , decreased breath sounds at bases HEART: S1 S2 regular rate and rhythm , ABDOMEN: Soft , mild tenderness EXTREMITIES: No edema feet - Labs CBC & Chem 7: 09/30/23 06:13 09/30/23 06:13 Labs: Abnormal Lab Results - Last 24 Hours (Table) 09/30/23 09/30/23 09/30/23 Range/Units 06:13 06:13 11:23 WBC 19.69 H (4.50-10.00) X 10*3/uL RBC 2.50 L (4.10-5.20) X 10*6/uL Hgb 7.5 L (12.0-15.0) g/dL Hct 23.7 L (37.2-46.3) % MCHC 31.6 L (32.0-37.0) g/dL RDW 20.3 H (11.5-14.5) % Immature Gran # 0.63 H (0.00-0.04) X 10*3/uL Neutrophils # 18.36 H (1.80-7.70) X 10*3/uL Lymphocytes # 0.36 L (0.90-5.00) X 10*3/uL Eosinophils # 0 L (0.04-0.35) X 10*3/uL NRBC/100 WBC Diff 1.42 H (0.00-0.01) X 10*3/uL PT 14.3 H (10.0-12.5) sec INR 1.4 H (<1.2) Anion Gap 15.80 H (4.00-12.00) mmol/L BUN 46.3 H (9.0-27.0) mg/dL Creatinine 2.6 H (0.6-1.5) mg/dL Est GFR (CKD-EPI) 20 L (>=60) Glucose 160 H (70-110) mg/dL Calcium 8.0 L (8.7-10.3) mg/dL Total Bilirubin 0.2 L (0.3-1.2) mg/dL Total Protein 4.1 L (6.2-8.2) g/dL Albumin 2.6 L (3.8-4.9) g/dL Globulin 1.5 L (1.6-3.3) g/dL Assessment and Plan (1) Perforation of sigmoid colon due to diverticulitis Current Visit: Yes Status: Acute Code(s): K57.20 - DVTRCLI OF LG INT W PERFORATION AND ABSCESS W/O BLEEDING SNOMED Code(s): 8940883160231828 (2) Peritonitis Current Visit: Yes Status: Acute Code(s): K65.9 - PERITONITIS, UNSPECIFIED SNOMED Code(s): 08716283 (3) Leukocytosis Current Visit: No Status: Acute Code(s): D72.829 - ELEVATED WHITE BLOOD CELL COUNT, UNSPECIFIED SNOMED Code(s): 278734821 (4) Sepsis Current Visit: Yes Status: Acute Code(s): A41.9 - SEPSIS, UNSPECIFIED ORGANISM SNOMED Code(s): 63719055 Plan: 1patient presented to the hospital with sepsis in this patient who did have a fever tachycardia meeting criteria for SIRS source is likely perforated diverticulitis with peritonitis and need to cover for the enteric gram-negative both aerobes and anaerobes patient also have complaint of increasing shortness of breath and cough CT shows bilateral lower lobe consolidation, possible pneumonia 2-patient is status post diagnostic laparoscopy sigmoid resection and end colos ashley abdominal culture currently growing Enterococcus faecium and faecalis and Cha 3-patient is afebrile white count is trending down down to 17.76 today, 4-patient to continue with Zosyn, daptomycin and Diflucan Dictation was produced using [employer] dictation software. please excuse any grammatical, word or spelling errors. Time with Patient: Less than 30
--- NOTE | 2023-09-30 16:20 | XR ---
EXAMINATION TYPE: XR chest 1V DATE OF EXAM: 09/30/2023 3:12 PM CLINICAL INDICATION:Female, 63 years old with history of chf; [facility] COMPARISON: 09/27/2023. TECHNIQUE: XR chest 1V Frontal view of the chest. FINDINGS: Lungs/Pleura: No evidence of focal consolidation or pneumothorax. Blunting of the costophrenic angles is present. Pulmonary vascularity: Asymmetric increased right-sided and predominantly lower airspace opacities po ssibly pulmonary edema. Heart/mediastinum: Cardiomediastinal silhouette is unremarkable. Musculoskeletal: No acute osseous pathology. Other findings: None Lines/Tubes: Right internal jugular central venous catheter with distal tip at the cavoatrial junction. IMPRESSION: Overall similar exam. Right central venous catheter with tip in appropriate position. Pulmonary edema within the right lung with possible bilateral pleural effusions.
[2023-09-30] MEDS: WARFARIN 2.5 MG TAB PO ONE (17:32)
--- NOTE | 2023-10-01 07:49 | XR ---
EXAMINATION TYPE: XR chest 1V portable DATE OF EXAM: 10/01/2023 COMPARISON: 09/30/2023 HISTORY: Ataxia TECHNIQUE: Single frontal view of the chest is obtained. FINDINGS: Emphysematous changes with dialysis catheter stable. Bilateral consolidation with small ef fusion on the left stable. No pneumothorax. Osseous structures are stable. Heart size upper limits of normal.. IMPRESSION: COPD with bilateral lower lobe infiltrate and small effusion correlate for CHF otherwise consider pneumonia.
[2023-10-01] MEDS: FOLIC ACID 1 MG TAB PO SCH (08:40)
[2023-10-01 10:11] LABS: HCT 26.5 % (37.2-46.3); HGB 8.2 g/dL (12.0-15.0); MCHC 30.9 g/dL (32.0-37.0); MCV 97.1 FL (80.0-97.0); NRBC Per 100 WBC 1.53 X 10*3/uL (0.00-0.01); Platelet Count 238 X 10*3/uL (140-440); RBC 2.73 X 10*6/uL (4.10-5.20); RDW 20.7 % (11.5-14.5); WBC 23.76 X 10*3/uL (4.50-10.00)
[2023-10-01 10:26] LABS: ALT 30 U/L (8-44); AST 35 U/L (13-35); Albumin 2.9 g/dL (3.8-4.9); Albumin/Globulin Ratio 1.93 Ratio (1.60-3.17); Alkaline Phosphatase 78 U/L (41-126); BUN/Creat Ratio 14.21 Ratio (12.00-20.00); Calcium 8.2 mg/dL (8.7-10.3); Carbon Dioxide 26.4 mmol/L (21.6-31.8); Chloride 98 mmol/L (96-109); Globulin 1.5 g/dL (1.6-3.3); Glucose 140 mg/dL (70-110); Potassium 4.3 mmol/L (3.5-5.5); Sodium 136 mmol/L (135-145); Total Bilirubin 0.4 mg/dL (0.3-1.2); Total Protein 4.4 g/dL (6.2-8.2)
--- NOTE | 2023-10-01 10:37 | P.PN ---
Subjective Progress Note Date: 10/01/23 This is a 63-year-old female patient of Dr. Daniels who presented to the ER with concerns of increased shortness of breath. Patient was recently admitted at [facility] last week for similar symptoms but did leave AMA prior to completion of treatment. Patient was alsopatient was also recently admitted recently admitted and transferred to [facility] and transferred to [facility] due to diagnosis of vasculitis and required hemodialysis during the hospital stay patient also had episode of pulmonary embolism in which she was started on Coumadin. Patient recently had hemodialysis catheter DC'd.. Additional medical history includes COPD and ex-smoker. Chest x-ray completed in ER showing COPD with superimposed interstitial opacities possible interstitial pulmonary edema versus atypicalCOPD with superimposed interstitial bases possible interstitial pulmonary edema versus atypical pneumonitis. Lab work revealing BNP level 60,000.. [id number] 0.205, 0.403 and 0.521. Creatinine 1.56 bun 47. White blood cell 27.9 hemoglobin 10.5 . Patient was started on Zithromax and Rocephin. Given dose of IV Lasix. Started on heparin drip for elevated troponins. Cardiology pulmonary and nephrology services consulted. Cardiology pulmonary and nephrology service is consulted. Current vital signs Temp 97.3, heart rate 95, respiratory rate 18, blood pressure 143/88 with a pulse ox of 96% on 2 L. On 09/23/2023 patient was seen and examined on the medical floor she is alert and oriented x 3 in no apparent distress, she started complaining of severe abdominal pain in the bilateral lower quadrants this morning, otherwise she denies any complaints there is no fever or chills no headache or dizziness no chest pain no shortness of breath no cough no nausea or vomiting no diarrhea no blood in the stools no burning with urination no frequency or urgency and no hematuria, CT scan of the abdomen and pelvis without contrast was ordered, will follow closely On 09/24/2023 Patient's alert and oriented 3. Patient is status post diagnostic laparoscopy sigmoid colectomy with end colostomy secondary to perforated sigmoid diverticulitis. Patient is currently postop day 1. Patient was transferred to the intensive care unit postoperatively but has been extubated to 2 L. Patient remains on IV Zosyn. Vertical care, nephrology, surgical, infectious disease service is following. Patient denies chest pain or shortness breath. Patient denies nausea vomiting or diarrhea. Burning or frequency On 09/25/2023 patient was seen and examined on the medical floor, she is alert and oriented x 3 in no apparent distress, there is no fever or chills no headache or dizziness no chest pain no shortness of breath no cough no nausea or vomiting no abdominal pain no diarrhea and no urinary symptoms, patient was noticed by her nurse to have an equal pupils, patient denies any previous knowl edge of abnormal pupil size, CT scan of the brain and neurology consultation will be initiated, hemoglobin today is down to 6.7 and patient will be given 1 unit of red blood cells. On 09/26/2023 patient is alert and oriented x 3. Patient has been tolerating full liquid diet. Patient el on IV Zosyn. Neurology services are following. Current vital signs Temp 98.2, rate 85, respiratory rate 15, blood pressure 151/89 with a pulse ox of 95% on 2 L. Patient denies chest pain or shortness of breath. Patient denies nausea vomiting or diarrhea. Patient denies any urinary burning or frequency. On 09/27/2023 patient was seen and examined on the medical floor, she is alert and oriented x 3 in no distress she denies any symptoms at this time there is no fever or chills, no headache or dizziness no chest pain no shortness of breath no cough no nausea or vomiting no abdominal pain no diarrhea no urinary symptoms On 09/28/2023 patient was seen and examined on the medical floor she is alert and oriented in no apparent distress there is no fever or chills no headache or dizziness no chest pain no shortness of breath no cough no nausea or vomiting no abdominal pain no diarrhea no urinary symptoms multiple specialist input reviewed today will follow in a.m. on 09/29/2023atient is alert and oriented 3. Patient underwent hemodialysis yesterday patient remains on IV steroids at [facility] and Zosyn. White blood cell trending down 17.76.current vital signs temp 97.7, heart rate 84, resp iratory rate 17, blood pressure 157/99 with pulse ox 98% on 4 L on 09/29/2024 patient's alert and oriented 3 patientto have hemodialysis today. Creatinine 2.6 bun 46.3.patient remains on Zosyn, Diflucan and daptomycin. Patient also remains on IV Lasix. Patient maintained on full liquid diet per surgical services. This time patient denies chest pain or shortness of breath. Patient denies nausea vomiting or diarrhea. Patient denies any urinary burning or frequency on 10/01/2023 patient is alert and oriented 3. Patient's diet has been advanced per surgical services. Patient denies chest pain or shortness of breath. Patient denies nausea vomiting or diarrhea. Patient denies any urinary burning or frequency.white blood cell increasing to 23. Patient remains on IV Zosyn, daptomycin and Diflucan. Infectious disease services are following.current vital signs temp 97.5, heart rate 75, respiratory rate 18, blood pressure 158/89 with pulse ox 97% on 4 L Objective - Vital Signs Vital signs: Vital Signs Temp 97.5 F L 10/01/23 06:50 Pulse 79 10/01/23 07:56 Resp 18 10/01/23 06:50 BP 158/89 10/01/23 06:50 Pulse Ox 94 L 10/01/23 07:44 FiO2 35 09/21/23 20:21 Intake & Output 09/30/23 10/01/23 10/01/23 18:59 06:59 18:59 Intake Total 600 Output Total 5600 300 Balance -5000 -300 Weight 66.7 kg 63 kg Intake: Hemodialysis 600 Output: Urine 200 300 Hemodialysis 3000 Hemodialysis Net Amount 2400 Other: Voiding Method Indwelling Catheter - Exam Physical examHead normocephalic Neck supple Lungs diminished bilaterally Heart regular rate and rhythm S1-S2, no rub or gallop Abdomen is soft with mild diffuse tenderness especially in the pelvic area bilaterally no organomegaly no palpable masses Extremities no edema Neuro alert and orientated to 3 - Labs CBC & Chem 7: 10/01/23 06:02 10/01/23 06:02 Labs: Abnormal Lab Results - Last 24 Hours (Table) 09/30/23 09/30/23 10/01/23 Range/Units 11:23 12:36 06:02 WBC 23.76 H (4.50-10.00) X 10*3/uL RBC 2.73 L (4.10-5.20) X 10*6/uL Hgb 8.2 L (12.0-15.0) g/dL Hct 26.5 L (37.2-46.3) % MCV 97.1 H (80.0-97.0) FL MCHC 30.9 L (32.0-37.0) g/dL RDW 20.7 H (11.5-14.5) % NRBC/100 WBC Diff 1.53 H (0.00-0.01) X 10*3/uL PT 14.3 H (10.0-12.5) sec INR 1.4 H (<1.2) Creatinine (0.6-1.5) mg/dL Est GFR (CKD-EPI) (>=60) Glucose (70-110) mg/dL Calcium (8.7-10.3) mg/dL Total Protein (6.2-8.2) g/dL Albumin (3.8-4.9) g/dL Globulin (1.6-3.3) g/dL Vitamin B12 2425.0 H (200.0-944.0) pg/mL 10/01/23 Range/Units 06:02 WBC (4.50-10.00) X 10*3/uL RBC (4.10-5.20) X 10*6/uL Hgb (12.0-15.0) g/dL Hct (37.2-46.3) % MCV (80.0-97.0) FL MCHC (32.0-37.0) g/dL RDW (11.5-14.5) % NRBC/100 WBC Diff (0.00-0.01) X 10*3/uL PT (10.0-12.5) sec INR (<1.2) Creatinine 1.9 H (0.6-1.5) mg/dL Est GFR (CKD-EPI) 29 L (>=60) Glucose 140 H (70-110) mg/dL Calcium 8.2 L (8.7-10.3) mg/dL Total Protein 4.4 L (6.2-8.2) g/dL Albumin 2.9 L (3.8-4.9) g/dL Globulin 1.5 L (1.6-3.3) g/dL Vitamin B12 (200.0-944.0) pg/mL Assessment and Plan Assessment: Acute hypoxic respiratory failure secondary to acute exacerbation of COPD and acute systolic congestive heart failure Acute exacerbation of COPD. Patient started on IV steroids Acute systolic congestive heart failure Perforated sigmoid diverticulitis status post sigmoid colectomy with end colostomy on 09/23/2023 Elevated troponins, likely related to renal failure, seen by cardiology no intervention recommended at this time Acute on chronic kidney disease Recent diagnosis of vasculitis at [facility] Recent history of PE/DVT maintained on Coumadin History of cardiomyopathy with EF of 15 to 20% History of tobacco abuse recently quit Unequal pupil size. Neurology service is following DVT prophylaxis lovenox. GI prophylaxis Protonix Pulmonary, cardiology and nephrology services consulted Patient started on IV steroids and IV antibiotics patient started back on hemodialysis
[2023-10-01 10:46] LABS: Basophils # (A) 0.05 X 10*3/uL (0.00-0.10); Basophils % (A) 0.2 %; Eosinophils # (A) 0 X 10*3/uL (0.04-0.35); Eosinophils % (A) 0 %; Lymphocytes # (A) 0.32 X 10*3/uL (0.90-5.00); Lymphocytes % (A) 1.3 %; Monocytes # (A) 0.32 X 10*3/uL (0.20-1.00); Monocytes % (A) 1.3 %; Neutrophils # (A) 22.29 X 10*3/uL (1.80-7.70); Neutrophils % (A) 93.9 %
[2023-10-01 10:54] LABS: INR 1.64 sec (0.93-1.11); Prothrombin Time 17.1 sec (9.9-11.9)
--- NOTE | 2023-10-01 12:08 | P.PN ---
Subjective Progress Note Date: 10/01/23 This is a 63-year-old female patient with a known history of chronic obstructive pulmonary disease, former smoker, previous acute kidney injury requiring dialysis that she completed approximately 2 weeks ago. She presented here to the emergency room today with increasing shortness of breath. Symptoms started just this morning. No fever or chills. No cough or congestion. Mainly dyspnea on minimal exertion. Chest x-ray reveals evidence of COPD with superimposed interstitial opacities, possible pulmonary edema versus atypical pneumonia. White count 27.9. Hemoglobin 10.5. Platelets 294. INR 1.3. Sodium 136. Potassium 4.3. Bicarb 30. BUN 47. Creatinine 1.56. Glucose 196. Troponin 0.205. proBNP 60,000. The patient is seen in consultation in the emergency department. She is currently sitting up on the stretcher. Awake and alert. On BiPAP 14/5 and 40% FiO2 to maintain O2 saturations in the 90s. Been initiated on a heparin drip. Initiated on antibiotics, bronchodilators and steroids. The patient is seen today September 22, 2023 in follow-up in the emergency department. She is awake and alert in no acute distress. Breathing easier today compared to yesterday. She is maintaining good O2 saturations in the 90s on 2 L/min per nasal cannula. She has been off the BiPAP. She remains on a heparin drip. Peak troponin 0.521. She is continued on DuoNeb inhalations, Symbicort, Solu-Medrol. She is continued on ceftriaxone. Chest x-ray shows diffuse interstitial opacities with slight improvement. The patient is seen today September 27, 2023 in follow-up on the regular medical [facility]. She is currently sitting up in a chair. Awake and alert in no acute distress. She is still receiving oxygen at 6 L/min per nasal cannula. Lactated Ringer's at 75 MLS per hour. She did have an episode of shortness of breath and anxiety last evening. She states she is feeling better today. X-ray reveals evidence of fluid volume overload. No focal consolidation, pneumothorax or pleural effusion. Right internal jugular catheter in place. She is status post 1 unit of packed red blood cells and 2 units of fresh frozen plasma this admission. Abdominal fluid cultures were positive for bacteroids. Wound culture positive for Enterococcus faecium VRE, Enterococcus faecalis VRE and Cha. White count 20.1. Hemoglobin 8.7. Platelets 227. Sodium 135. Potassium 5.8. Bicarb 23. BUN 63. Creatinine 2.46. Glucose 124. She is continued on DuoNeb inhalations, Symbicort, daptomycin and Zosyn. Lovenox for DVT prophylaxis. The patient is seen today September 28, 2023 in follow-up on the regular medical floor. She is currently resting in bed. Awake and alert in no acute distress. Feeling better today compared to yesterday. She is maintaining good O2 saturations in the 90s on 4 L/min per nasal cannula. No IV fluids. She is continued on daptomycin and Zosyn. Chest x-ray reveals right pleural effusion with pulmonary vascular congestion. Left lung is relatively clear. She remains on DuoNeb ventilations, Pulmicort and Perforomist inhalations, Solu-Medrol. Lovenox for DVT prophylaxis. Sodium 131. Potassium 5.1. Bicarb 23. BUN 69. Creatinine 2.68. Glucose 146. She was given Lasix 60 mg IVP x 1. She is currently in a -1.5 L balance. The patient is seen today September 29, 2023 in follow-up on the regular medical floor. She is currently sitting up in bed. Awake and alert in no acute distress. Maintaining good O2 saturations in the 90s on 4 L/min per nasal neida sorin. She is status post 1 unit of packed red blood cells and 2 units of platelets fresh frozen plasma this admission. Abdominal fluid and wound cultures were positive for Enterococcus faecium VRE, Enterococcus faecalis VRE, Cha. White count 17.7. Hemoglobin 7.9. Platelets 233. Sodium 136. Potassium 3.5. Bicarb 27. BUN 33. Creatinine 2.0. Glucose 152. She remains on DuoNeb inhalations, Pulmicort and Perforomist inhalations, Solu-Medrol. Antibiotics in the form of daptomycin and Zosyn. The patient is seen today September 30, 2023 in follow-up on the regular medical floor. She is resting comfortably in bed. Maintaining good O2 saturations in the 90s on 5 L/min per nasal cannula. She is status post 1 unit of packed red blood cells and 2 fresh frozen plasma this admission. Abdominal cultures were positive for Enterococcus faecium and Enterococcus faecalis both VRE. White cou nt 19.6. Hemoglobin 7.5. Platelets 225. INR 1.4. Sodium 137. Potassium 3.8. Bicarb 24. BUN 46. Creatinine 2.6. Glucose 160. She is continued on DuoNeb inhalations, Symbicort, Solu-Medrol. Antibiotics in the form of Zosyn and daptomycin. Lovenox for DVT prophylaxis. Currently on Lasix 60 mg IV every 12 hours. Currently in a -5.9 L balance. The patient is seen today October 01, 2023 in follow-up on the regular medical floor. She is sitting up in bed. Awake and alert in no acute distress. Feeling stronger each day. She is maintaining O2 saturations in the 90s on 4 L/min per nasal cannula. She has been resumed on hemodialysis. She remains on Zosyn and daptomycin. Abdominal cultures were positive for Enterococcus faecium and Enterococcus faecalis both VRE. She remains on DuoNeb inhalations, Symbicort, Solu-Medrol. Remains on Lovenox. White count 23.7. Hemoglobin 8.2. Platelets 238. INR 1.64. Sodium 136. Potassium 4.3. Bicarb 26. BUN 27. Creatinine 1.9. Glucose 140. Objective - Vital Signs Vital signs: Vital Signs Temp 97.5 F L 10/01/23 06:50 Pulse 70 10/01/23 11:44 Resp 18 10/01/23 06:50 BP 158/89 10/01/23 06:50 Pulse Ox 94 L 10/01/23 07:44 FiO2 35 09/21/23 20:21 Intake & Output 09/30/23 10/01/23 10/01/23 18:59 06:59 18:59 Intake Total 600 Output Total 5600 300 Balance -5000 -300 Weight 66.7 kg 63 kg Intake: Hemodialysis 600 Output: Urine 200 300 Hemodialysis 3000 Hemodialysis Net Amount 2400 Other: Voiding Method Indwelling Catheter - Exam GENERAL EXAM: Alert, pleasant 63-year-old female, sitting up in bed, on 4 L/min per nasal cannula, in no apparent distress. HEAD: Normocephalic. EYES: Normal reaction of pupils, equal size. NOSE: Clear with pink turbinates. THROAT: No erythema or exudates. NECK: No masses, no JVD. CHEST: No chest wall deformity. LUNGS: Equal air entry with bibasilar crackles, diminished. CVS: S1 and S2 normal with no audible murmur, regular rhythm. ABDOMEN: Colostomy with pink stoma. No stool. Pinkish clear liquid. Incisional drainage noted on the lower aspect of the dressing. SPINE: No scoliosis or deformity SKIN: No rashes CENTRAL NERVOUS SYSTEM: No focal deficits, tone is normal in all 4 extremities. EXTREMITIES: There is 1+ peripheral edema. No clubbing, no cyanosis. Peripheral pulses are intact. - Labs CBC & Chem 7: 10/01/23 06:02 10/01/23 06:02 Labs: Abnormal Lab Results - Last 24 Hours (Table) 09/30/23 09/30/23 10/01/23 Range/Units 11:23 12:36 06:02 WBC 23.76 H (4.50-10.00) X 10*3/uL RBC 2.73 L (4.10-5.20) X 10*6/uL Hgb 8.2 L (12.0-15.0) g/dL Hct 26.5 L (37.2-46.3) % MCV 97.1 H (80.0-97.0) FL MCHC 30.9 L (32.0-37.0) g/dL RDW 20.7 H (11.5-14.5) % Immature Gran # 0.78 H (0.00-0.04) X 10*3/uL Neutrophils # 22.29 H (1.80-7.70) X 10*3/uL Lymphocytes # 0.32 L (0.90-5.00) X 10*3/uL Eosinophils # 0 L (0.04-0.35) X 10*3/uL NRBC/100 WBC Diff 1.53 H (0.00-0.01) X 10*3/uL PT 14.3 H (10.0-12.5) sec INR 1.4 H (<1.2) Creatinine (0.6-1.5) mg/dL Est GFR (CKD-EPI) (>=60) Glucose (70-110) mg/dL Calcium (8.7-10.3) mg/dL Total Protein (6.2-8.2) g/dL Albumin (3.8-4.9) g/dL Globulin (1.6-3.3) g/dL Vitamin B12 2425.0 H (200.0-944.0) pg/mL 10/01/23 10/01/23 Range/Units 06:02 06:02 WBC (4.50-10.00) X 10*3/uL RBC (4.10-5.20) X 10*6/uL Hgb (12.0-15.0) g/dL Hct (37.2-46.3) % MCV (80.0-97.0) FL MCHC (32.0-37.0) g/dL RDW (11.5-14.5) % Immature Gran # (0.00-0.04) X 10*3/uL Neutrophils # (1.80-7.70) X 10*3/uL Lymphocytes # (0.90-5.00) X 10*3/uL Eosinophils # (0.04-0.35) X 10*3/uL NRBC/100 WBC Diff (0.00-0.01) X 10*3/uL PT 17.1 H (10.0-12.5) sec INR 1.64 H (<1.2) Creatinine 1.9 H (0.6-1.5) mg/dL Est GFR (CKD-EPI) 29 L (>=60) Glucose 140 H (70-110) mg/dL Calcium 8.2 L (8.7-10.3) mg/dL Total Protein 4.4 L (6.2-8.2) g/dL Albumin 2.9 L (3.8-4.9) g/dL Globulin 1.5 L (1.6-3.3) g/dL Vitamin B12 (200.0-944.0) pg/mL Assessment and Plan Assessment: Acute hypoxemic respiratory failure secondary to an acute exacerbation of chronic obstructive pulmonary disease, acute systolic congestive heart failure Status post exploratory laparotomy, sigmoid colectomy, and end sigmoid colostomy for ruptured sigmoid diverticulum on September 23, 2023. Cultures positive for bacteroids. Enterococcus faecium VRE, Enterococcus faecalis VRE, Cha. Currently on daptomycin and Zosyn Acute kidney injury secondary to ANCA vasculitis and cardiorenal syndrome previously on hemodialysis. Permacath still in place and restarted on hemodialysis 09/28/2023 Leukocytosis Anemia requiring 1 unit of packed red blood cells this admission. Current hemoglobin 7.5 Severe cardiomyopathy with an ejection fraction of 25-30 % History of chronic obstructive pulmonary disease Chronic tobacco dependence ANCA vasculitis and was to have had a kidney biopsy in June 2023 unclear if this was done History of PE/DVT, on Lovenox postoperatively Plan: The patient was seen and evaluated Labs and medications reviewed Titrate down the FiO2 as tolerated Continue the current treatment plan Increase her activity as tolerated Plan is for [facility] at discharge I have personally seen and examined the patient, performed the documentation and the assessment and plan as written. Number of minutes spent on the visit: 10.
--- NOTE | 2023-10-01 13:34 | P.PN ---
Subjective patient is seen for follow-up for acute kidney injury. History of hemodialysis dependent acute kidney injury with recovery of renal function and patient has been off of dialysis for about 3 weeks now. Restarted on dialysis this admission due to severe volume overload and worsening renal function. UF of 2.4 L yesterday Oxygen requirement decreased but patient remains quite debilitated. There are plans for discharge to subacute rehab Objective - Vital Signs Vital signs: Vital Signs Temp 97.5 F L 10/01/23 06:50 Pulse 70 10/01/23 11:44 Resp 18 10/01/23 06:50 BP 158/89 10/01/23 06:50 Pulse Ox 94 L 10/01/23 07:44 FiO2 35 09/21/23 20:21 Intake & Output 09/30/23 10/01/23 10/01/23 18:59 06:59 18:59 Intake Total 600 Output Total 5600 300 Balance -5000 -300 Weight 66.7 kg 63 kg Intake: Hemodialysis 600 Output: Urine 200 300 Hemodialysis 3000 Hemodialysis Net Amount 2400 Other: Voiding Method Indwelling Catheter - Exam patient is awake, comfortable, mild respiratory distress. Examination of the heart S1 and S2 Examination of the lungs bilateral breath sounds are heard Abdomen is soft nontender Examination of lower extremities shows trace edema. 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 - Labs CBC & Chem 7: 10/01/23 06:02 10/01/23 06:02 Labs: Abnormal Lab Results - Last 24 Hours (Table) 09/30/23 10/01/23 10/01/23 Range/Units 12:36 06:02 06:02 WBC 23.76 H (4.50-10.00) X 10*3/uL RBC 2.73 L (4.10-5.20) X 10*6/uL Hgb 8.2 L (12.0-15.0) g/dL Hct 26.5 L (37.2-46.3) % MCV 97.1 H (80.0-97.0) FL MCHC 30.9 L (32.0-37.0) g/dL RDW 20.7 H (11.5-14.5) % Immature Gran # 0.78 H (0.00-0.04) X 10*3/uL Neutrophils # 22.29 H (1.80-7.70) X 10*3/uL Lymphocytes # 0.32 L (0.90-5.00) X 10*3/uL Eosinophils # 0 L (0.04-0.35) X 10*3/uL NRBC/100 WBC Diff 1.53 H (0.00-0.01) X 10*3/uL PT (9.9-11.9) sec INR (0.93-1.11) sec Creatinine 1.9 H (0.6-1.5) mg/dL Est GFR (CKD-EPI) 29 L (>=60) Glucose 140 H (70-110) mg/dL Calcium 8.2 L (8.7-10.3) mg/dL Total Protein 4.4 L (6.2-8.2) g/dL Albumin 2.9 L (3.8-4.9) g/dL Globulin 1.5 L (1.6-3.3) g/dL Vitamin B12 2425.0 H (200.0-944.0) pg/mL 10/01/23 Range/Units 06:02 WBC (4.50-10.00) X 10*3/uL RBC (4.10-5.20) X 10*6/uL Hgb (12.0-15.0) g/dL Hct (37.2-46.3) % MCV (80.0-97.0) FL MCHC (32.0-37.0) g/dL RDW (11.5-14.5) % Immature Gran # (0.00-0.04) X 10*3/uL Neutrophils # (1.80-7.70) X 10*3/uL Lymphocytes # (0.90-5.00) X 10*3/uL Eosinophils # (0.04-0.35) X 10*3/uL NRBC/100 WBC Diff (0.00-0.01) X 10*3/uL PT 17.1 H (9.9-11.9) sec INR 1.64 H (0.93-1.11) sec Creatinine (0.6-1.5) mg/dL Est GFR (CKD-EPI) (>=60) Glucose (70-110) mg/dL Calcium (8.7-10.3) mg/dL Total Protein (6.2-8.2) g/dL Albumin (3.8-4.9) g/dL Globulin (1.6-3.3) g/dL Vitamin B12 (200.0-944.0) pg/mL Assessment and Plan Assessment: 1. 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 Also component of cardiorenal syndrome. renal function slowly worsening. Creatinine was 1.9 dated September 07, 2023. Patient was hemodialysis dependent but was recently taken off hemodialysis. She still has permacath in place. Ultrasound from June 2023 showed no evidence of hydronephrosis. Restarted hemodialysis on 09/28/2023 due to worsening renal function and volume status. 2. ANCA vasculitis maintained on prednisone. Status post 2 doses of IV rituximab 1 g completed August 2023. Maintained on 30 mg of prednisone outpatient. 3. Acute on chronic systolic CHF ejection fraction of 25 to 30% with severe pulmonary hypertension and moderate tricuspid regurgitation. 4. Acute hypoxic respiratory failure secondary to COPD exacerbation as well as CHF. Some improvement in chest x-ray noted with ultrafiltration with hemodialysis. 5. History of PE maintained on anticoagulation. 6. Anemia. high ferritin noted. 7. Pneumoperitoneum status post diagnostic laparoscopy, sigmoid colectomy with end colostomy 09/23/2023. 8. Volume overload, improving Plan: continue with Lasix. repeat hemodialysis today repeat serologies Continue steroids
--- NOTE | 2023-10-01 14:24 | P.PN ---
Subjective Progress Note Date: 10/01/23 CHIEF COMPLAINT: Perforated sigmoid diverticulitis HISTORY OF PRESENT ILLNESS: The patient is a 63-year-old female status post perforated diverticulitis. Patient is undergoing dialysis. She denies any increased abdominal pain. She is resting comfortably in the bed. ROS: No reports of nausea and vomiting. No fevers or chills. No new chest pain. No productive sputum PHYSICAL EXAM: VITAL SIGNS: Reviewed CONSTITUTIONAL: Well developed and in no acute distress. EYES: Conjuctivae without sclera icterus. Extraocular movements grossly intact. HEAD, EARS, NOSE, THROAT: Moist buccal mucosa. Head is atraumatic, normocephalic. Hears conversational speech. No nasal drainage. RESPIRATORY: Non-labored respirations and equal bilateral excursions. CARDIOVASCULAR: Palpable 2+ radial pulses. ABDOMEN: Dressing intact. SILVIO serosanguineous. MUSCULOSKELETAL: No gross deformity of the lower extremities noted. No clubbing. No cyanosis. SKIN: Good skin turgor. Well perfused. NEUROLOGIC: Cranial nerves II through XII grossly intact. No focal or lateralizing signs. PSYCH: Appropriate affect. Alert and oriented to person, place and time. CLINICAL LABS: Reviewed. WBC elevated 19,020 3000. Hemoglobin of 7.5-8.2. ASSESSMENT: 1. Perforated sigmoid diverticulitis 2. Acute kidney injury secondary to ANCA vasculitis PLAN: 1. Dialysis per nephrology 2. Continue low fiber diet 3. Antibiotic management per infectious disease due to increasing leukocytosis Objective - Vital Signs Vital signs: Vital Signs Temp 97.5 F L 10/01/23 06:50 Pulse 70 10/01/23 11:44 Resp 18 10/01/23 06:50 BP 158/89 10/01/23 06:50 Pulse Ox 94 L 10/01/23 07:44 FiO2 35 09/21/23 20:21 Intake & Output 09/30/23 10/01/23 10/01/23 18:59 06:59 18:59 Intake Total 600 Output Total 5600 300 Balance -5000 -300 Weight 66.7 kg 63 kg Intake: Hemodialysis 600 Output: Urine 200 300 Hemodialysis 3000 Hemodialysis Net Amount 2400 Other: Voiding Method Indwelling Catheter - Labs CBC & Chem 7: 10/01/23 06:02 10/01/23 06:02 Labs: Abnormal Lab Results - Last 24 Hours (Table) 09/30/23 10/01/23 10/01/23 Range/Units 12:36 06:02 06:02 WBC 23.76 H (4.50-10.00) X 10*3/uL RBC 2.73 L (4.10-5.20) X 10*6/uL Hgb 8.2 L (12.0-15.0) g/dL Hct 26.5 L (37.2-46.3) % MCV 97.1 H (80.0-97.0) FL MCHC 30.9 L (32.0-37.0) g/dL RDW 20.7 H (11.5-14.5) % Immature Gran # 0.78 H (0.00-0.04) X 10*3/uL Neutrophils # 22.29 H (1.80-7.70) X 10*3/uL Lymphocytes # 0.32 L (0.90-5.00) X 10*3/uL Eosinophils # 0 L (0.04-0.35) X 10*3/uL NRBC/100 WBC Diff 1.53 H (0.00-0.01) X 10*3/uL PT (9.9-11.9) sec INR (0.93-1.11) sec Creatinine 1.9 H (0.6-1.5) mg/dL Est GFR (CKD-EPI) 29 L (>=60) Glucose 140 H (70-110) mg/dL Calcium 8.2 L (8.7-10.3) mg/dL Total Protein 4.4 L (6.2-8.2) g/dL Albumin 2.9 L (3.8-4.9) g/dL Globulin 1.5 L (1.6-3.3) g/dL Vitamin B12 2425.0 H (200.0-944.0) pg/mL 10/01/23 Range/Units 06:02 WBC (4.50-10.00) X 10*3/uL RBC (4.10-5.20) X 10*6/uL Hgb (12.0-15.0) g/dL Hct (37.2-46.3) % MCV (80.0-97.0) FL MCHC (32.0-37.0) g/dL RDW (11.5-14.5) % Immature Gran # (0.00-0.04) X 10*3/uL Neutrophils # (1.80-7.70) X 10*3/uL Lymphocytes # (0.90-5.00) X 10*3/uL Eosinophils # (0.04-0.35) X 10*3/uL NRBC/100 WBC Diff (0.00-0.01) X 10*3/uL PT 17.1 H (9.9-11.9) sec INR 1.64 H (0.93-1.11) sec Creatinine (0.6-1.5) mg/dL Est GFR (CKD-EPI) (>=60) Glucose (70-110) mg/dL Calcium (8.7-10.3) mg/dL Total Protein (6.2-8.2) g/dL Albumin (3.8-4.9) g/dL Globulin (1.6-3.3) g/dL Vitamin B12 (200.0-944.0) pg/mL
--- NOTE | 2023-10-01 15:32 | P.PN ---
Subjective Progress Note Date: 10/01/23 Principal diagnosis: Reason for follow-up is perforated diverticulitis Patient is a 63-year-old female past medical history significant for COPD vasculitis history of acute kidney injury secondary to ANCA vasculitis presenting to the hospital with shortness of breath and abdominal pain has been diagnosed with a perforated sigmoid diverticulitis in this patient who is status post diagnostic laparoscopic sigmoid colectomy with end colostomy. On today's evaluation that is 10/01/2023, Patient is afebrile this morning patient denies having any chest pain shortness of breath did have mild cough, the patient is breathing comfortably and currently on 4 L nasal cannula oxygen, patient abdominal pain has decreased in intensity no nausea vomiting did have output in colostomy. Patient white count is 23.76 creatinine is 1.9 Objective - Vital Signs Vital signs: Vital Signs Temp 97.5 F L 10/01/23 06:50 Pulse 70 10/01/23 15:28 Resp 18 10/01/23 06:50 BP 158/89 10/01/23 06:50 Pulse Ox 94 L 10/01/23 07:44 FiO2 35 09/21/23 20:21 Intake & Output 09/30/23 10/01/23 10/01/23 18:59 06:59 18:59 Intake Total 600 Output Total 5600 300 Balance -5000 -300 Weight 66.7 kg 63 kg Intake: Hemodialysis 600 Output: Urine 200 300 Hemodialysis 3000 Hemodialysis Net Amount 2400 Other: Voiding Method Indwelling Catheter - Exam GENERAL DESCRIPTION: Middle-aged female lying in bed in no distress RESPIRATORY SYSTEM: Unlabored breathing , decreased breath sounds at bases HEART: S1 S2 regular rate and rhythm , ABDOMEN: Soft , mild tenderness EXTREMITIES: No edema feet - Labs CBC & Chem 7: 10/01/23 06:02 10/01/23 06:02 Labs: Abnormal Lab Results - Last 24 Hours (Table) 09/30/23 10/01/23 10/01/23 Range/Units 12:36 06:02 06:02 WBC 23.76 H (4.50-10.00) X 10*3/uL RBC 2.73 L (4.10-5.20) X 10*6/uL Hgb 8.2 L (12.0-15.0) g/dL Hct 26.5 L (37.2-46.3) % MCV 97.1 H (80.0-97.0) FL MCHC 30.9 L (32.0-37.0) g/dL RDW 20.7 H (11.5-14.5) % Immature Gran # 0.78 H (0.00-0.04) X 10*3/uL Neutrophils # 22.29 H (1.80-7.70) X 10*3/uL Lymphocytes # 0.32 L (0.90-5.00) X 10*3/uL Eosinophils # 0 L (0.04-0.35) X 10*3/uL NRBC/100 WBC Diff 1.53 H (0.00-0.01) X 10*3/uL PT (9.9-11.9) sec INR (0.93-1.11) sec Creatinine 1.9 H (0.6-1.5) mg/dL Est GFR (CKD-EPI) 29 L (>=60) Glucose 140 H (70-110) mg/dL Calcium 8.2 L (8.7-10.3) mg/dL Total Protein 4.4 L (6.2-8.2) g/dL Albumin 2.9 L (3.8-4.9) g/dL Globulin 1.5 L (1.6-3.3) g/dL Vitamin B12 2425.0 H (200.0-944.0) pg/mL 10/01/23 Range/Units 06:02 WBC (4.50-10.00) X 10*3/uL RBC (4.10-5.20) X 10*6/uL Hgb (12.0-15.0) g/dL Hct (37.2-46.3) % MCV (80.0-97.0) FL MCHC (32.0-37.0) g/dL RDW (11.5-14.5) % Immature Gran # (0.00-0.04) X 10*3/uL Neutrophils # (1.80-7.70) X 10*3/uL Lymphocytes # (0.90-5.00) X 10*3/uL Eosinophils # (0.04-0.35) X 10*3/uL NRBC/100 WBC Diff (0.00-0.01) X 10*3/uL PT 17.1 H (9.9-11.9) sec INR 1.64 H (0.93-1.11) sec Creatinine (0.6-1.5) mg/dL Est GFR (CKD-EPI) (>=60) Glucose (70-110) mg/dL Calcium (8.7-10.3) mg/dL Total Protein (6.2-8.2) g/dL Albumin (3.8-4.9) g/dL Globulin (1.6-3.3) g/dL Vitamin B12 (200.0-944.0) pg/mL Assessment and Plan (1) Perforation of sigmoid colon due to diverticulitis Current Visit: Yes Status: Acute Code(s): K57.20 - DVTRCLI OF LG INT W PERFORATION AND ABSCESS W/O BLEEDING SNOMED Code(s): 7474884639185561 (2) Peritonitis Current Visit: Yes Status: Acute Code(s): K65.9 - PERITONITIS, UNSPECIFIED SNOMED Code(s): 21928403 (3) Leukocytosis Current Visit: No Status: Acute Code(s): D72.829 - ELEVATED WHITE BLOOD CELL COUNT, UNSPECIFIED SNOMED Code(s): 956071436 (4) Sepsis Current Visit: Yes Status: Acute Code(s): A41.9 - SEPSIS, UNSPECIFIED ORGANISM SNOMED Code(s): 96160157 Plan: 1patient presented to the hospital with sepsis in this patient who did have a fever tachycardia meeting criteria for SIRS source is likely perforated diverticulitis with peritonitis and need to cover for the enteric gram-negative both aerobes and anaerobes patient also have complaint of increasing shortness of breath and cough CT shows bilateral lower lobe consolidation, possible pneumonia 2-patient is status post diagnostic laparoscopy sigmoid resection and end colostomy abdominal culture currently growing Enterococcus faecium and faecalis and Hca 3-patient is afebrile , further worsening the white count more likely due to Solu-Medrol as no evidence of any worsening infection 4-patient to continue with Zosyn, daptomycin and Diflucan and will monitor clinical course closely Dictation was produced using [employer]Along dictation software. please excuse any grammatical, word or spelling errors. Time with Patient: Less than 30
[2023-10-01] MEDS: WARFARIN 2.5 MG TAB PO ONE (16:51)
[2023-10-02 04:18] LABS: Prothrombin Time 19.8 sec (10.0-12.5)
--- NOTE | 2023-10-02 10:41 | P.PN ---
Subjective Progress Note Date: 09/30/23 09/30/2023: Patient was seen for a follow-up. Patient is laying comfortably in the bed. Offers no new complaints. Continues to have weakness. 09/29/2023: Patient was seen for a follow-up. Patient is sitting comfortable in the recliner. Offers no new complaints. Continues to complain about generalized weakness. Patient claims her legs are very weak. Patient believes that weakness is partly related to being in the hospital for so long and sitting in the chair and with minimal activity. No new concerns. 09/28/2023: Patient was seen for a follow-up. Patient states that her legs are getting weaker. She has been in the hospital since last Wednesday, 7 days ago. Patient was able to tell me that she has received rituximab infusion in July 2023 as well as on 08/26/2023 for vasculitis. Patient is getting ready for hemodialysis. 09/27/2023: Patient is a 63-year-old female with recent diagnosis of vasculitis (since June 2023) with multiple organ dysfunction. Patient has anisocoria about 1 mm difference between her eyes. No headache, visual disturbance. Patient does not want to proceed with MRI or additional workup. Patient was seen for a follow-up. Patient is sitting comfortably in the recliner. Patient denies any headache any numbness or tingling, denies any strokelike symptoms. Her vision is "good". Patient says that she was diagnosed with vasculitis and [facility]. She had some IV infusion 2 to treat her vasculitis, the name she does not remember says something starts with "Vitr". Patient developed acute renal failure on 06/30/2023 and was started on hemodialysis shortly after. Some of the workup during this hospital visit consisted of: White blood cell on presentation is 27,000 and is trending down. Hemoglobin is 6.7 and today is 8.6 Most recent creatinine is 2.4. It is drastically better compared to 06/29/2023. Per recent TSH on 07/05/2023 is 3.73 which is normal CK level 25 CT head: It is reported as no acute intracranial process. Nonspecific white matter changes, likely secondary due to chronic small vessel ischemic disease. I personally reviewed the CT and I agree with the report. Carotid duplex: Less than 50% stenosis bilateral carotid bifurcation Objective - Vital Signs Vital signs: Vital Signs Temp 97.3 F L 09/30/23 07:21 Pulse 80 09/30/23 11:05 Resp 18 09/30/23 07:21 BP 158/55 09/30/23 07:21 Pulse Ox 93 L 09/30/23 07:53 FiO2 35 09/21/23 20:21 Intake & Output 09/29/23 09/30/23 09/30/23 18:59 06:59 18:59 Intake Total 1150 Output Total 300 610 Balance 850 -610 Weight 66.7 kg Intake: Oral 1150 Output: Drainage 175 145 SILVIO Abdomen 175 145 Urine 125 450 Uretheral (Hadley) 450 Stool 15 Other: Voiding Method Indwelling Catheter Indwelling Catheter - Exam On examination patient is a late middle aged female, sitting comfortably in the recliner, in no distress. Patient is alert and oriented 4. Speech and language functions are normal. Cranial nerves are significant for very mild anisocoria. The left pupil is slightly larger than the right. Both are reactive. Visual gomez are full on confrontation. Extraocular muscles intact with no nystagmus. Facial strength is normal. Hearing is normal. Tongue protrudes the midline. Sensations are equal. No pronator drift. The muscle strength is (right/left) deltoid 5-4+/5-4+, biceps 4/4, triceps 4+/4+, elevator constructor helper 5-/5-, hip flexion 1-2/1-2, hip adduction 4/4, hip abduction 4/4+, knee extension 4/4-, ankle dorsiflexion 4/4. Deep tendon reflexes are (right/left) biceps 1+/trace, brachioradialis 1+/1, and triceps trace/trace, knee 0/0, ankles 0/0 and plantars are flat. No ataxia in the upper limbs. - Labs CBC & Chem 7: 10/01/23 06:02 10/01/23 06:02 Labs: Abnormal Lab Results - Last 24 Hours (Table) 09/30/23 09/30/23 09/30/23 Range/Units 06:13 06:13 11:23 WBC 19.69 H (4.50-10.00) X 10*3/uL RBC 2.50 L (4.10-5.20) X 10*6/uL Hgb 7.5 L (12.0-15.0) g/dL Hct 23.7 L (37.2-46.3) % MCHC 31.6 L (32.0-37.0) g/dL RDW 20.3 H (11.5-14.5) % Immature Gran # 0.63 H (0.00-0.04) X 10*3/uL Neutrophils # 18.36 H (1.80-7.70) X 10*3/uL Lymphocytes # 0.36 L (0.90-5.00) X 10*3/uL Eosinophils # 0 L (0.04-0.35) X 10*3/uL NRBC/100 WBC Diff 1.42 H (0.00-0.01) X 10*3/uL PT 14.3 H (10.0-12.5) sec INR 1.4 H (<1.2) Anion Gap 15.80 H (4.00-12.00) mmol/L BUN 46.3 H (9.0-27.0) mg/dL Creatinine 2.6 H (0.6-1.5) mg/dL Est GFR (CKD-EPI) 20 L (>=60) Glucose 160 H (70-110) mg/dL Calcium 8.0 L (8.7-10.3) mg/dL Total Bilirubin 0.2 L (0.3-1.2) mg/dL Total Protein 4.1 L (6.2-8.2) g/dL Albumin 2.6 L (3.8-4.9) g/dL Globulin 1.5 L (1.6-3.3) g/dL Assessment and Plan Assessment: This is a 63-year-old woman who was found to have vasculitis and appears led to acute kidney injury in June 2023 and required temporary dialysis, as well as the vasculitis led to severe cardiomyopathy with ejection fraction 25 to 30%, had significant weakness since June 2023 in the lower extremity but states is i mproving and now is able to walk with a walker, had a a pulmonary embolism/DVT and is on Coumadin, COPD who presents because of respiratory distress and was found to have perforated sigmoid diverticulitis which required diagnostic laparoscopy with sigmoid colectomy and end colostomy on 09/23/2023. During this admission she was found to have unequal pupils left slightly bigger than the right but she denies of any headache visual disturbance difficulty swallowing. Anisocoria left pupil is 4 mm and the right is 3 mm and both reactive to light and denies any headache or visual disturbance: Unsure exact etiology. Possible physiological since only 1mm difference vs medication iduced ?(on nebulizers) vs ?vasculitis. CT head and carotid duplex are unremarkable. Recent perforated sigmoid diverticulitis status post diagnostic laparoscopy with sigmoid colectomy and end colostomy on 09/23/2023 Recent diagnosis of vasculitis and had kidney biopsy at [facility] in June 2023 Acute kidney injury since June 2023 and patient required temporary dialysis which she completed and kidneys are improving but not back to baseline Anemia Has significant bilateral lower extremity weakness more than upper since June 2023. Although patient initially mentioned that her strength is improving, but now states arms and legs are getting weaker. Exact cause is uncertain. Rule out polyneuropathy/CIDP. Cardiomyopathy and ejection fraction of 25 to 30% since she had vasculitis History of recent pulmonary embolism DVT and is on Coumadin History of COPD Ex tobacco user Plan: KATIE negative, SSA/SSB negative, anti-Hurst antibodies negative, CONSUMER PRODUCT ADVISOR antibodies negative. Check B12, folate, MMA. The patient is on methylprednisolone tapering dose of 40 mg IV every 8 hours, as per pulmonary team. Patient does not want any further or escalation of work-up for her anisocoria at this time otherwise. Does not want MRI Brain and does not want to pursue with temporal biopsy. I highly doubt giant cell arteritis. Patient is in agreement if has any headache or visual disturbance then will proceed with work-up. Recommend the patient to be evaluated by Neon Sign Worker as outpatient within 2- 3 weeks. Patient believes she is getting weaker in her arms and legs. Patient will need EMG and nerve conductions of upper and lower extremities to evaluate for polyneuropathy. I discussed with patient about performing lumbar puncture to rule out elevated proteins, which may suggest an inflammatory component. Patient completely declined lumbar puncture. We will observe her clinically. She again declined LP today as well. Pulmonary team is on board, ID team is on board, nephrology team is on board and cardiology team is on board Will defer the rest of the medical management to primary and other specialist Recommend patient follow-up with neurologist outpatient for EMG testing. DVT prophylaxis: Patient on Lovenox 60 mg every 24 hours.
--- NOTE | 2023-10-02 10:46 | P.PN ---
Subjective Progress Note Date: 10/01/23 10/01/2023: Patient was seen for follow-up. Patient is undergoing hemodialysis. Offers no new complaints. Continues to have weakness in the arms and legs. States no change. 09/30/2023: Patient was seen for a follow-up. Patient is laying comfortably in the bed. Offers no new complaints. Continues to have weakness. 09/29/2023: Patient was seen for a follow-up. Patient is sitting comfortable in the recliner. Offers no new complaints. Continues to complain about generalized weakness. Patient claims her legs are very weak. Patient believes that weakness is partly related to being in the hospital for so long and sitting in the chair and with minimal activity. No new concerns. 09/28/2023: Patient was seen for a follow-up. Patient states that her legs are getting weaker. She has been in the hospital since last Wednesday, 7 days ago. Patient was able to tell me that she has received rituximab infusion in July 2023 as well as on 08/26/2023 for vasculitis. Patient is getting ready for hemodialysis. 09/27/2023: Patient is a 63-year-old female with recent diagnosis of vasculitis (since June 2023) with multiple organ dysfunction. Patient has anisocoria about 1 mm difference between her eyes. No headache, visual disturbance. Patient does not want to proceed with MRI or additional workup. Patient was seen for a follow-up. Patient is sitting comfortably in the recliner. Patient denies any headache any numbness or tingling, denies any strokelike symptoms. Her vision is "good". Patient says that she was diagnosed with vasculitis and [facility]. She had some IV infusion 2 to treat her vasculitis, the name she does not remember says something starts with "Vitr". Patient developed acute renal failure on 06/30/2023 and was started on hemodialysis shortly after. Some of the workup during this hospital visit consisted of: White blood cell on presentation is 27,000 and is trending down. Hemoglobin is 6.7 and today is 8.6 Most recent creatinine is 2.4. It is drastically better compared to 06/29/2023. Per recent TSH on 07/05/2023 is 3.73 which is normal CK level 25 CT head: It is reported as no acute intracranial process. Nonspecific white matter changes, likely secondary due to chronic small vessel ischemic disease. I personally reviewed the CT and I agree with the report. Carotid duplex: Less than 50% stenosis bilateral carotid bifurcation Objective - Vital Signs Vital signs: Vital Signs Temp 98.4 F 10/01/23 14:25 Pulse 100 10/01/23 14:25 Resp 17 10/01/23 14:25 BP 110/67 10/01/23 14:25 Pulse Ox 94 L 10/01/23 14:25 FiO2 35 09/21/23 20:21 Intake & Output 09/30/23 10/01/23 10/01/23 18:59 06:59 18:59 Intake Total 600 Output Total 5600 300 Balance -5000 -300 Weight 66.7 kg 63 kg Intake: Hemodialysis 600 Output: Urine 200 300 Hemodialysis 3000 Hemodialysis Net Amount 2400 Other: Voiding Method Indwelling Catheter - Exam On examination patient is a late middle aged female, sitting comfortably in the recliner, in no distress. Patient is alert and oriented 4. Speech and language functions are normal. Cranial nerves are significant for very mild anisocoria. The left pupil is slightly larger than the right. Both are reactive. Visual gomez are full on confrontation. Extraocular muscles intact with no nystagmus. Facial strength is normal. Hearing is normal. Tongue protrudes the midline. Sensations are equal. No pronator drift. The muscle strength is (right/left) deltoid 5-4+/5-4+, biceps 4/4, triceps 4+/4+, supervisor glycerin 5-/5-, hip flexion 1-2/1-2, hip adduction 4/4, hip abduction 4/4+, knee extension 4/4-, ankle dorsiflexion 4-/4-. Deep tendon reflexes are (right/left) biceps 1+/trace, brachioradialis 1+/1, and triceps trace/trace, knee 0/0, ankles 0/0 and plantars are flat. No ataxia in the upper limbs. - Labs CBC & Chem 7: 10/01/23 06:02 10/01/23 06:02 Labs: Abnormal Lab Results - Last 24 Hours (Table) 09/30/23 10/01/23 10/01/23 Range/Units 12:36 06:02 06:02 WBC 23.76 H (4.50-10.00) X 10*3/uL RBC 2.73 L (4.10-5.20) X 10*6/uL Hgb 8.2 L (12.0-15.0) g/dL Hct 26.5 L (37.2-46.3) % MCV 97.1 H (80.0-97.0) FL MCHC 30.9 L (32.0-37.0) g/dL RDW 20.7 H (11.5-14.5) % Immature Gran # 0.78 H (0.00-0.04) X 10*3/uL Neutrophils # 22.29 H (1.80-7.70) X 10*3/uL Lymphocytes # 0.32 L (0.90-5.00) X 10*3/uL Eosinophils # 0 L (0.04-0.35) X 10*3/uL NRBC/100 WBC Diff 1.53 H (0.00-0.01) X 10*3/uL PT (9.9-11.9) sec INR (0.93-1.11) sec Creatinine 1.9 H (0.6-1.5) mg/dL Est GFR (CKD-EPI) 29 L (>=60) Glucose 140 H (70-110) mg/dL Calcium 8.2 L (8.7-10.3) mg/dL Total Protein 4.4 L (6.2-8.2) g/dL Albumin 2.9 L (3.8-4.9) g/dL Globulin 1.5 L (1.6-3.3) g/dL Vitamin B12 2425.0 H (200.0-944.0) pg/mL 10/01/23 Range/Units 06:02 WBC (4.50-10.00) X 10*3/uL RBC (4.10-5.20) X 10*6/uL Hgb (12.0-15.0) g/dL Hct (37.2-46.3) % MCV (80.0-97.0) FL MCHC (32.0-37.0) g/dL RDW (11.5-14.5) % Immature Gran # (0.00-0.04) X 10*3/uL Neutrophils # (1.80-7.70) X 10*3/uL Lymphocytes # (0.90-5.00) X 10*3/uL Eosinophils # (0.04-0.35) X 10*3/uL NRBC/100 WBC Diff (0.00-0.01) X 10*3/uL PT 17.1 H (9.9-11.9) sec INR 1.64 H (0.93-1.11) sec Creatinine (0.6-1.5) mg/dL Est GFR (CKD-EPI) (>=60) Glucose (70-110) mg/dL Calcium (8.7-10.3) mg/dL Total Protein (6.2-8.2) g/dL Albumin (3.8-4.9) g/dL Globulin (1.6-3.3) g/dL Vitamin B12 (200.0-944.0) pg/mL Assessment and Plan Assessment: This is a 63-year-old woman who was 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 During this admission she was found to have unequal pupils left slightly bigger than the right but she denies of any headache visual disturbance difficulty swallowing. Anisocoria left pupil is 4 mm and the right is 3 mm and both reactive to light and denies any headache or visual disturbance: Unsure exact etiology. Possible physiological since only 1mm difference vs medication iduced ?(on nebulizers) vs ?vasculitis. CT head and carotid duplex are unremarkable. Recent perforated sigmoid diverticulitis status post diagnostic laparoscopy with sigmoid colectomy and end colostomy on 09/23/2023 Recent diagnosis of vasculitis and had kidney biopsy at [facility] in June 2023 Acute kidney injury since June 2023 and patient required temporary dialysis which she completed and kidneys are improving but not back to baseline Anemia Has significant bilateral lower extremity weakness more than upper since June 2023. Although patient initially mentioned that her strength is improving, but now states arms and legs are getting weaker. Exact cause is uncertain. Rule out polyneuropathy/CIDP. Cardiomyopathy and ejection fraction of 25 to 30% since she had vasculitis History of recent pulmonary embolism DVT and is on Coumadin History of COPD Ex tobacco user Folate deficiency Plan: KATIE negative, SSA/SSB negative, anti-Hurst antibodies negative, MEDICATION RECONCILIATION TECHNICIAN antibodies negative. B12 2425, folate 4.70, MMA. Patient to be started on folic acid 1 mg daily. The patient is on methylprednisolone tapering dose of 40 mg IV every 8 hours, as per pulmonary team. Patient does not want any further or escalation of work-up for her anisocoria at this time otherwise. Does not want MRI Brain and does not want to pursue with temporal biopsy. I highly doubt giant cell arteritis. Patient is in agreement if has any headache or visual disturbance then will proceed with work-up. Recommend the patient to be evaluated by Athletics Director as outpatient within 2- 3 weeks. Patient believes she is getting weaker in her arms and legs. Patient will need EMG and nerve conductions of upper and lower extremities to evaluate for polyneuropathy. I discussed with patient about performing lumbar puncture to rule out elevated proteins, which may suggest an inflammatory component. Patient declines lumbar puncture. Pulmonary team is on board, ID team is on board, nephrology team is on board and cardiology team is on board Will defer the rest of the medical management to primary and other specialist Recommend patient follow-up with neurologist outpatient for EMG testing. DVT prophylaxis: Patient on Lovenox 60 [address] every [address] Josh Barber to resume neurology service from Wednesday.
--- NOTE | 2023-10-02 10:47 | P.PN ---
Subjective Progress Note Date: 10/02/23 This is a 63-year-old female patient with a known history of chronic obstructive pulmonary disease, former smoker, previous acute kidney injury requiring dialysis that she completed approximately 2 weeks ago. She presented here to the emergency room today with increasing shortness of breath. Symptoms started just this morning. No fever or chills. No cough or congestion. Mainly dyspnea on minimal exertion. Chest x-ray reveals evidence of COPD with superimposed interstitial opacities, possible pulmonary edema versus atypical pneumonia. White count 27.9. Hemoglobin 10.5. Platelets 294. INR 1.3. Sodium 136. Potassium 4.3. Bicarb 30. BUN 47. Creatinine 1.56. Glucose 196. Troponin 0.205. proBNP 60,000. The patient is seen in consultation in the emergency department. She is currently sitting up on the stretcher. Awake and alert. On BiPAP 14/5 and 40% FiO2 to maintain O2 saturations in the 90s. Been initiated on a heparin drip. Initiated on antibiotics, bronchodilators and steroids. The patient is seen today September 22, 2023 in follow-up in the emergency department. She is awake and alert in no acute distress. Breathing easier today compared to yesterday. She is maintaining good O2 saturations in the 90s on 2 L/min per nasal cannula. She has been off the BiPAP. She remains on a heparin drip. Peak troponin 0.521. She is continued on DuoNeb inhalations, Symbicort, Solu-Medrol. She is continued on ceftriaxone. Chest x-ray shows diffuse interstitial opacities with slight improvement. The patient is seen today September 27, 2023 in follow-up on the regular medical [facility] or. She is currently sitting up in a chair. Awake and alert in no acute distress. She is still receiving oxygen at 6 L/min per nasal cannula. Lactated Ringer's at 75 MLS per hour. She did have an episode of shortness of breath and anxiety last evening. She states she is feeling better today. X-ray reveals evidence of fluid volume overload. No focal consolidation, pneumothorax or pleural effusion. Right internal jugular catheter in place. She is status post 1 unit of packed red blood cells and 2 units of fresh frozen plasma this admission. Abdominal fluid cultures were positive for bacteroids. Wound culture positive for Enterococcus faecium VRE, Enterococcus faecalis VRE and Cha. White count 20.1. Hemoglobin 8.7. Platelets 227. Sodium 135. Potassium 5.8. Bicarb 23. BUN 63. Creatinine 2.46. Glucose 124. She is continued on DuoNeb inhalations, Symbicort, daptomycin and Zosyn. Lovenox for DVT prophylaxis. The patient is seen today September 28, 2023 in follow-up on the regular medical floor. She is currently resting in bed. Awake and alert in no acute distress. Feeling better today compared to yesterday. She is maintaining good O2 saturations in the 90s on 4 L/min per nasal cannula. No IV fluids. She is continued on daptomycin and Zosyn. Chest x-ray reveals right pleural effusion with pulmonary vascular congestion. Left lung is relatively clear. She remains on DuoNeb ventilations, Pulmicort and Perforomist inhalations, Solu-Medrol. Lovenox for DVT prophylaxis. Sodium 131. Potassium 5.1. Bicarb 23. BUN 69. Creatinine 2.68. Glucose 146. She was given Lasix 60 mg IVP x 1. She is currently in a -1.5 L balance. The patient is seen today September 29, 2023 in follow-up on the regular medical floor. She is currently sitting up in bed. Awake and alert in no acute distress. Maintaining good O2 saturations in the 90s on 4 L/min per nasal neida sorin. She is status post 1 unit of packed red blood cells and 2 units of platelets fresh frozen plasma this admission. Abdominal fluid and wound cultures were positive for Enterococcus faecium VRE, Enterococcus faecalis VRE, Cha. White count 17.7. Hemoglobin 7.9. Platelets 233. Sodium 136. Potassium 3.5. Bicarb 27. BUN 33. Creatinine 2.0. Glucose 152. She remains on DuoNeb inhalations, Pulmicort and Perforomist inhalations, Solu-Medrol. Antibiotics in the form of daptomycin and Zosyn. The patient is seen today September 30, 2023 in follow-up on the regular medical floor. She is resting comfortably in bed. Maintaining good O2 saturations in the 90s on 5 L/min per nasal cannula. She is status post 1 unit of packed red blood cells and 2 fresh frozen plasma this admission. Abdominal cultures were positive for Enterococcus faecium and Enterococcus faecalis both VRE. White cou nt 19.6. Hemoglobin 7.5. Platelets 225. INR 1.4. Sodium 137. Potassium 3.8. Bicarb 24. BUN 46. Creatinine 2.6. Glucose 160. She is continued on DuoNeb inhalations, Symbicort, Solu-Medrol. Antibiotics in the form of Zosyn and daptomycin. Lovenox for DVT prophylaxis. Currently on Lasix 60 mg IV every 12 hours. Currently in a -5.9 L balance. The patient is seen today October 01, 2023 in follow-up on the regular medical floor. She is sitting up in bed. Awake and alert in no acute distress. Feeling stronger each day. She is maintaining O2 saturations in the 90s on 4 L/min per nasal cannula. She has been resumed on hemodialysis. She remains on Zosyn and daptomycin. Abdominal cultures were positive for Enterococcus faecium and Enterococcus faecalis both VRE. She remains on DuoNeb inhalations, Symbicort, Solu-Medrol. Remains on Lovenox. White count 23.7. Hemoglobin 8.2. Platelets 238. INR 1.64. Sodium 136. Potassium 4.3. Bicarb 26. BUN 27. Creatinine 1.9. Glucose 140. The patient is seen today October 02, 2023 in follow-up on the regular medical floor. She is sitting up at the bedside. Awake and alert in no acute distress. She has had some issues with dizziness while up. She did receive hemodialysis yesterday with 1.9 L removed. The plan is for hemodialysis again today. She is maintaining good O2 saturations in the 90s on 3.5 L/min per nasal cannula. Normal saline at KVO. She is continued on DuoNeb inhalations, Symbicort, Solu- Medrol. Lovenox for anticoagulation. She remains on daptomycin and Zosyn. Anticoagulated with warfarin. INR 2.0. She remains on Lasix 60 mg every 12 hours. Currently in a -5 L balance. Objective - Vital Signs Vital signs: Vital Signs Temp 97.2 F L 10/02/23 07:10 Pulse 78 10/02/23 08:55 Resp 17 10/02/23 07:10 BP 156/94 10/02/23 07:10 Pulse Ox 98 10/02/23 07:10 FiO2 35 09/21/23 20:21 Intake & Output 0710/02/23 10/02/23 18:59 06:59 18:59 Intake Total 500 250 Output Total 4850 920 125 Balance -4350 -670 -125 Weight 61.5 kg Intake: Oral 250 Hemodialysis 500 Output: Drainage 100 SILVIO Abdomen 100 Urine 550 800 Stool 20 125 Hemodialysis 2400 Hemodialysis Net Amount 1900 Other: Voiding Method Indwelling Catheter External Catheter - Exam GENERAL EXAM: Alert, pleasant 63-year-old female, sitting at the bedside, on 3.5 L/min per nasal cannula, in no apparent distress. HEAD: Normocephalic. EYES: Normal reaction of pupils, equal size. NOSE: Clear with pink turbinates. THROAT: No erythema or exudates. NECK: No masses, no JVD. CHEST: No chest wall deformity. LUNGS: Equal air entry with bibasilar crackles, diminished. CVS: S1 and S2 normal with no audible murmur, regular rhythm. ABDOMEN: Colostomy with stool present. Dressing intact. SPINE: No scoliosis or deformity SKIN: No rashes CENTRAL NERVOUS SYSTEM: No focal deficits, tone is normal in all 4 extremities. EXTREMITIES: There is 1+ peripheral edema. No clubbing, no cyanosis. Peripheral pulses are intact. - Labs CBC & Chem 7: 10/01/23 06:02 10/01/23 06:02 Labs: Abnormal Lab Results - Last 24 Hours (Table) 10/01/23 10/01/23 10/02/23 Range/Units 06:02 06:02 03:19 Immature Gran # 0.78 H (0.00-0.04) X 10*3/uL Neutrophils # 22.29 H (1.80-7.70) X 10*3/uL Lymphocytes # 0.32 L (0.90-5.00) X 10*3/uL Eosinophils # 0 L (0.04-0.35) X 10*3/uL PT 17.1 H 19.8 H (9.9-11.9) sec INR 1.64 H 2.0 H (0.93-1.11) sec Assessment and Plan Assessment: Acute hypoxemic respiratory failure secondary to an acute exacerbation of chronic obstructive pulmonary disease, acute systolic congestive heart failure Status post exploratory laparotomy, sigmoid colectomy, and end sigmoid colostomy for ruptured sigmoid diverticulum on September 23, 2023. Cultures positive for bacteroids. Enterococcus faecium VRE, Enterococcus faecalis VRE, Cha. Currently on daptomycin and Zosyn Acute kidney injury secondary to ANCA vasculitis and cardiorenal syndrome previously on hemodialysis. Permacath still in place and restarted on hemodialysis 09/28/2023 Leukocytosis Anemia requiring 1 unit of packed red blood cells this admission. Current hemoglobin 8.2 Severe cardiomyopathy with an ejection fraction of 25-30 % History of chronic obstructive pulmonary disease Chronic tobacco dependence ANCA vasculitis and was to have had a kidney biopsy in June 2023 unclear if this was done History of PE/DVT, on warfarin, INR 2.0 Plan: The patient was seen and evaluated Labs and medications reviewed Resumed back on hemodialysis Continued on IV diuretics Follow-up chest x-ray in a.m. Titrate down the FiO2 as tolerated Continue the current treatment plan Increase her activity as tolerated Plan is for Maribel rod Sterling at discharge I have personally seen and examined the patient, performed the documentation and the assessment and plan as written. Number of minutes spent on the visit: 10.
--- NOTE | 2023-10-02 13:55 | P.PN ---
Subjective patient is seen for follow-up for acute kidney injury. History of hemodialysis dependent acute kidney injury with recovery of renal function and patient has been off of dialysis for about 3 weeks now. Restarted on dialysis this admission due to severe volume overload and worsening renal function. UF of about 7.5 L over the last 4 days Oxygen requirement decreased but patient remains quite debilitated. There are plans for discharge to subacute rehab. patient was seen on hemodialysis today. Net UF only 700 ML today. Objective - Vital Signs Vital signs: Vital Signs Temp 97.8 F 10/02/23 13:42 Pulse 72 10/02/23 13:42 Resp 18 10/02/23 13:42 BP 124/83 10/02/23 13:42 Pulse Ox 98 10/02/23 07:10 FiO2 35 09/21/23 20:21 Intake & Output 10/01/23 10/02/23 10/02/23 18:59 06:59 18:59 Intake Total 500 250 600 Output Total 4850 920 2125 Balance -5792 -970 -8140 Weight 61.5 kg Intake: Oral 250 Hemodialysis 500 600 Output: Drainage 100 SILVIO Abdomen 100 Urine 550 800 Stool 20 125 Hemodialysis 2400 1300 Hemodialysis Net Amount 1900 700 Other: Voiding Method Indwelling Catheter External Catheter - Exam patient is awake, comfortable, mild respiratory distress. Examination of the heart S1 and S2 Examination of the lungs bilateral breath sounds are heard Abdomen is soft nontender Examination of lower extremities shows no edema SUSTAINABILITY ENGINEER exam grossly intact - Labs CBC & Chem 7: 10/01/23 06:02 10/01/23 06:02 Labs: Abnormal Lab Results - Last 24 Hours (Table) 10/02/23 Range/Units 03:19 PT 19.8 H (10.0-12.5) sec INR 2.0 H (<1.2) Assessment and Plan Assessment: 1. 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 Also component of cardiorenal syndrome. renal function slowly worsening. Creatinine was 1.9 dated September 07, 2023. Patient was hemodialysis dependent but was recently taken off hemodialysis. Ultrasound from June 2023 showed no evidence of hydronephrosis. Restarted hemodialysis on 09/28/2023 due to worsening renal function and volume overload. 2. ANCA vasculitis maintained on prednisone. Status post 2 doses of IV rituximab 1 g completed August 2023. Maintained on 30 mg of prednisone o utpatient. 3. Acute on chronic systolic CHF ejection fraction of 25 to 30% with severe pulmonary hypertension and moderate tricuspid regurgitation. 4. Acute hypoxic respiratory failure secondary to COPD exacerbation as well as CHF. Some improvement in chest x-ray noted with ultrafiltration with he modialysis. 5. History of PE maintained on anticoagulation. 6. Anemia. high ferritin noted. 7. Pneumoperitoneum status post diagnostic laparoscopy, sigmoid colectomy with end colostomy 09/23/2023. 8. Volume overload, improving. Status post UF close to 8 L over the last 4 days. Plan: continue with Lasix. next hemodialysis on 10/04/2023 repeat serologies pending. Continue steroids
--- NOTE | 2023-10-02 14:58 | P.PN ---
Subjective Progress Note Date: 10/02/23 Principal diagnosis: Reason for follow-up is perforated diverticulitis Patient is a 63-year-old female past medical history significant for COPD vasculitis history of acute kidney injury secondary to ANCA vasculitis presenting to the hospital with shortness of breath and abdominal pain has been diagnosed with a perforated sigmoid diverticulitis in this patient who is status post diagnostic laparoscopic sigmoid colectomy with end colostomy. On today's evaluation that is 10/02/2023,the patient denies any fever or any chills, patient is breathing comfortably on 3 L current oxygen, the patient denies chest pain shortness of breath and no significant cough, patient abdominal pain has decreased in intensity tolerating her diet no nausea no vomiting did have output in her colostomy. Patient did have INR of 2.0 no CBC was done today Objective - Vital Signs Vital signs: Vital Signs Temp 97.8 F 10/02/23 13:42 Pulse 72 10/02/23 13:42 Resp 18 10/02/23 13:42 BP 124/83 10/02/23 13:42 Pulse Ox 99 10/02/23 12:36 FiO2 35 09/21/23 20:21 Intake & Output 10/01/23 10/02/23 10/02/23 18:59 06:59 18:59 Intake Total 500 250 600 Output Total 4850 920 2125 Balance -3615 -623 -0653 Weight 61.5 kg Intake: Oral 250 Hemodialysis 500 600 Output: Drainage 100 SILVIO Abdomen 100 Urine 550 800 Stool 20 125 Hemodialysis 2400 1300 Hemodialysis Net Amount 1900 700 Other: Voiding Method Indwelling Catheter External Catheter - Exam GENERAL DESCRIPTION: Middle-aged female lying in bed in no distress RESPIRATORY SYSTEM: Unlabored breathing , decreased breath sounds at bases HEART: S1 S2 regular rate and rhythm , ABDOMEN: Soft , mild tenderness EXTREMITIES: No edema feet - Labs CBC & Chem 7: 10/01/23 06:02 10/01/23 06:02 Labs: Abnormal Lab Results - Last 24 Hours (Table) 10/02/23 Range/Units 03:19 PT 19.8 H (10.0-12.5) sec INR 2.0 H (<1.2) Assessment and Plan (1) Perforation of sigmoid colon due to diverticulitis Current Visit: Yes Status: Acute Code(s): K57.20 - DVTRCLI OF LG INT W PERFORATION AND ABSCESS W/O BLEEDING SNOMED Code(s): 1067677485009509 (2) Peritonitis Current Visit: Yes Status: Acute Code(s): K65.9 - PERITONITIS, UNSPECIFIED SNOMED Code(s): 79038963 (3) Leukocytosis Current Visit: No Status: Acute Code(s): D72.829 - ELEVATED WHITE BLOOD CELL COUNT, UNSPECIFIED SNOMED Code(s): 198358695 (4) Sepsis Current Visit: Yes Status: Acute Code(s): A41.9 - SEPSIS, UNSPECIFIED ORGANISM SNOMED Code(s): 30241108 Plan: 1patient presented to the hospital with sepsis in this patient who did have a fever tachycardia meeting criteria for SIRS source is likely perforated diverticulitis with peritonitis and need to cover for the enteric gram-negative both aerobes and anaerobes patient also have complaint of increasing shortness of breath and cough CT shows bilateral lower lobe consolidation, possible pneumonia 2-patient is status post diagnostic laparoscopy sigmoid resection and end colostomy abdominal culture currently growing Enterococcus faecium and faecalis and Cha 3-patient is afebrile , further worsening the white count more likely due to Solu-Medrol as no evidence of any worsening infection 4-patient to continue with Zosyn, daptomycin and Diflucan while inpatient and monitor clinical course closely Dictation was produced using [employer] dictation software. please excuse any grammatical, word or spelling errors. Time with Patient: Less than 30
[2023-10-02] MEDS: WARFARIN 2.5 MG TAB PO ONE (17:11)
[2023-10-03] MEDS: IPRATROPIUM-ALBUTEROL 3 ML NEB INHALATION PRN (00:13)
--- NOTE | 2023-10-03 00:18 | P.PN ---
Subjective Patient seen and evaluated at bedside. Doing well, no complaints, tolerating diet, stool in bag Objective - Vital Signs Vital signs: Vital Signs Temp 97.3 F L 10/02/23 19:38 Pulse 76 10/02/23 21:06 Resp 17 10/02/23 19:38 BP 130/86 10/02/23 19:38 Pulse Ox 99 10/02/23 19:38 FiO2 35 09/21/23 20:21 Intake & Output 10/02/23 10/02/23 10/03/23 06:59 18:59 06:59 Intake Total 250 600 Output Total 920 2150 Balance -670 -1550 Weight 61.5 kg Intake: Oral 250 Hemodialysis 600 Output: Drainage 100 25 SILVIO Abdomen 100 25 Urine 800 Stool 20 125 Hemodialysis 1300 Hemodialysis Net Amount 700 Other: Voiding Method Indwelling Catheter External Catheter External Catheter # Voids 1 - Exam gen: nad cv: rrr pul: non labored breathing abd: soft, min tenderness to palpation, ostomy pink/patent/producing. - Labs CBC & Chem 7: 10/01/23 06:02 10/01/23 06:02 Labs: Abnormal Lab Results - Last 24 Hours (Table) 10/02/23 Range/Units 03:19 PT 19.8 H (10.0-12.5) sec INR 2.0 H (<1.2) Assessment and Plan Assessment: 63 yo female s/p perforated diverticulitis with nely's -continue diet -jonh -defer abx to infectious diesease Time with Patient: Less than 30
[2023-10-03 05:26] LABS: INR 3.6 (<1.2); Prothrombin Time 35.7 sec (10.0-12.5)
--- NOTE | 2023-10-03 07:14 | XR ---
EXAMINATION TYPE: XR chest 1V portable DATE OF EXAM: 10/03/2023 COMPARISON: 10/01/2023 HISTORY: CHF TECHNIQUE: Single frontal view of the chest is obtained. FINDINGS: No change in the position of the right-sided jugular permacath. No change in the left lung opacity consistent with atelectasis and small pleural effusion. The pulmonary vasculature appears less congested There is no pneumothorax. The osseous structures are intact IMPRESSION: 1. No change in the left lung opacity and effusion. 2. Decreased pulmonary vascular congestion
--- NOTE | 2023-10-03 09:30 | P.PN ---
Subjective Progress Note Date: 10/02/23 This is a 63-year-old female patient of Dr. Daniels who presented to the ER with concerns of increased shortness of breath. Patient was recently admitted at [facility] last week for similar symptoms but did leave AMA prior to completion of treatment. Patient was alsopatient was also recently admitted recently admitted and transferred to [facility] and transferred to [facility] due to diagnosis of vasculitis and required hemodialysis during the hospital stay patient also had episode of pulmonary embolism in which she was started on Coumadin. Patient recently had hemodialysis catheter DC'd.. Additional medical history includes COPD and ex-smoker. Chest x-ray completed in ER showing COPD with superimposed interstitial opacities possible interstitial pulmonary edema versus atypicalCOPD with superimposed interstitial bases possible interstitial pulmonary edema versus atypical pneumonitis. Lab work revealing BNP level 60,000.. W2scrgawwt 0.205, 0.403 and 0.521. Creatinine 1.56 bun 47. White blood cell 27.9 hemoglobin 10.5 . Patient was started on Zithromax and Rocephin. Given dose of IV Lasix. Started on heparin drip for elevated troponins. Cardiology pulmonary and nephrology services consulted. Cardiology pulmonary and nephrology service is consulted. Current vital signs Temp 97.3, heart rate 95, respiratory rate 18, blood pressure 143/88 with a pulse ox of 96% on 2 L. On 09/23/2023 patient was seen and examined on the medical floor she is alert and oriented x 3 in no apparent distress, she started complaining of severe abdominal pain in the bilateral lower quadrants this morning, otherwise she denies any complaints there is no fever or chills no headache or dizziness no chest pain no shortness of breath no cough no nausea or vomiting no diarrhea no blood in the stools no burning with urination no frequency or urgency and no hematuria, CT scan of the abdomen and pelvis without contrast was ordered, will follow closely On 09/24/2023 Patient's alert and oriented 3. Patient is status post diagnostic laparoscopy sigmoid colectomy with end colostomy secondary to perforated sigmoid diverticulitis. Patient is currently postop day 1. Patient was transferred to the intensive care unit postoperatively but has been extubated to 2 L. Patient remains on IV Zosyn. Vertical care, nephrology, surgical, infectious disease service is following. Patient denies chest pain or shortness breath. Patient denies nausea vomiting or diarrhea. Burning or frequency On 09/25/2023 patient was seen and examined on the medical floor, she is alert and oriented x 3 in no apparent distress, there is no fever or chills no headache or dizziness no chest pain no shortness of breath no cough no nausea or vomiting no abdominal pain no diarrhea and no urinary symptoms, patient was noticed by her nurse to have an equal pupils, patient denies any previous knowl edge of abnormal pupil size, CT scan of the brain and neurology consultation will be initiated, hemoglobin today is down to 6.7 and patient will be given 1 unit of red blood cells. On 09/26/2023 patient is alert and oriented x 3. Patient has been tolerating full liquid diet. Patient el on IV Zosyn. Neurology services are following. Current vital signs Temp 98.2, rate 85, respiratory rate 15, blood pressure 151/89 with a pulse ox of 95% on 2 L. Patient denies chest pain or shortness of breath. Patient denies nausea vomiting or diarrhea. Patient denies any urinary burning or frequency. On 09/27/2023 patient was seen and examined on the medical floor, she is alert and oriented x 3 in no distress she denies any symptoms at this time there is no fever or chills, no headache or dizziness no chest pain no shortness of breath no cough no nausea or vomiting no abdominal pain no diarrhea no urinary symptoms On 09/28/2023 patient was seen and examined on the medical floor she is alert and oriented in no apparent distress there is no fever or chills no headache or dizziness no chest pain no shortness of breath no cough no nausea or vomiting no abdominal pain no diarrhea no urinary symptoms multiple specialist input reviewed today will follow in a.m. on 09/29/2023atient is alert and oriented 3. Patient underwent hemodialysis yesterday patient remains on IV steroids at [facility] and Zosyn. White blood cell trending down 17.76.current vital signs temp 97.7, heart rate 84, resp iratory rate 17, blood pressure 157/99 with pulse ox 98% on 4 L on 09/29/2024 patient's alert and oriented 3 patientto have hemodialysis today. Creatinine 2.6 bun 46.3.patient remains on Zosyn, Diflucan and daptomycin. Patient also remains on IV Lasix. Patient maintained on full liquid diet per surgical services. This time patient denies chest pain or shortness of breath. Patient denies nausea vomiting or diarrhea. Patient denies any urinary burning or frequency on 10/01/2023 patient is alert and oriented 3. Patient's diet has been advanced per surgical services. Patient denies chest pain or shortness of breath. Patient denies nausea vomiting or diarrhea. Patient denies any urinary burning or frequency.white blood cell increasing to 23. Patient remains on IV Zosyn, daptomycin and Diflucan. Infectious disease services are following.current vital signs temp 97.5, heart rate 75, respiratory rate 18, blood pressure 158/89 with pulse ox 97% on 4 L On 10/02/2023 patient was seen and examined on the medical floor she is alert and oriented x 3 in no apparent distress there is no fever or chills no headache or dizziness no chest pain no shortness of breath no cough no nausea or vomiting no abdominal pain no diarrhea and no urinary symptoms. Currently she is receiving hemodialysis will continue with current management will follow closely Objective - Vital Signs Vital signs: Vital Signs Temp 97.2 F L 10/02/23 07:10 Pulse 78 10/02/23 08:55 Resp 17 10/02/23 07:10 BP 156/94 10/02/23 07:10 Pulse Ox 98 10/02/23 07:10 FiO2 35 09/21/23 20:21 Intake & Output 10/01/23 10/02/23 10/02/23 18:59 06:59 18:59 Intake Total 500 250 Output Total 4850 920 125 Balance -4350 -670 -125 Weight 61.5 kg Intake: Oral 250 Hemodialysis 500 Output: Drainage 100 SILVIO Abdomen 100 Urine 550 800 Stool 20 125 Hemodialysis 2400 Hemodialysis Net Amount 1900 Other: Voiding Method Indwelling Catheter External Catheter - Exam Physical examHead normocephalic Neck supple Lungs diminished bilaterally Heart regular rate and rhythm S1-S2, no rub or gallop Abdomen is soft with mild diffuse tenderness especially in the pelvic area bilaterally no organomegaly no palpable masses Extremities no edema Neuro alert and orientated to 3 - Labs CBC & Chem 7: 10/01/23 06:02 10/01/23 06:02 Labs: Abnormal Lab Results - Last 24 Hours (Table) 10/02/23 Range/Units 03:19 PT 19.8 H (10.0-12.5) sec INR 2.0 H (<1.2) Assessment and Plan Assessment: Acute hypoxic respiratory failure secondary to acute exacerbation of COPD and acute systolic congestive heart failure Acute exacerbation of COPD. Patient started on IV steroids Acute systolic congestive heart failure Perforated sigmoid diverticulitis status post sigmoid colectomy with end colostomy on 09/23/2023 Elevated troponins, likely related to renal failure, seen by cardiology no intervention recommended at this time Acute on chronic kidney disease Recent diagnosis of vasculitis at [facility] Recent history of PE/DVT maintained on Coumadin History of cardiomyopathy with EF of 15 to 20% History of tobacco abuse recently quit Unequal pupil size. Neurology service is following DVT prophylaxis lovenox. GI prophylaxis Protonix Pulmonary, cardiology and nephrology services consulted Patient started on IV steroids and IV antibiotics patient started back on hemodialysis
--- NOTE | 2023-10-03 09:31 | P.PN ---
Subjective Progress Note Date: 10/03/23 This is a 63-year-old female patient of Dr. Daniels who presented to the ER with concerns of increased shortness of breath. Patient was recently admitted at [facility] last week for similar symptoms but did leave AMA prior to completion of treatment. Patient was alsopatient was also recently admitted recently admitted and transferred to [facility] and transferred to [facility] due to diagnosis of vasculitis and required hemodialysis during the hospital stay patient also had episode of pulmonary embolism in which she was started on Coumadin. Patient recently had hemodialysis catheter DC'd.. Additional medical history includes COPD and ex-smoker. Chest x-ray completed in ER showing COPD with superimposed interstitial opacities possible interstitial pulmonary edema versus atypicalCOPD with superimposed interstitial bases possible interstitial pulmonary edema versus atypical pneumonitis. Lab work revealing BNP level 60,000.. [id number] 0.205, 0.403 and 0.521. Creatinine 1.56 bun 47. White blood cell 27.9 hemoglobin 10.5 . Patient was started on Zithromax and Rocephin. Given dose of IV Lasix. Started on heparin drip for elevated troponins. Cardiology pulmonary and nephrology services consulted. Cardiology pulmonary and nephrology service is consulted. Current vital signs Temp 97.3, heart rate 95, respiratory rate 18, blood pressure 143/88 with a pulse ox of 96% on 2 L. On 09/23/2023 patient was seen and examined on the medical floor she is alert and oriented x 3 in no apparent distress, she started complaining of severe abdominal pain in the bilateral lower quadrants this morning, otherwise she denies any complaints there is no fever or chills no headache or dizziness no chest pain no shortness of breath no cough no nausea or vomiting no diarrhea no blood in the stools no burning with urination no frequency or urgency and no hematuria, CT scan of the abdomen and pelvis without contrast was ordered, will follow closely On 09/24/2023 Patient's alert and oriented 3. Patient is status post diagnostic laparoscopy sigmoid colectomy with end colostomy secondary to perforated sigmoid diverticulitis. Patient is currently postop day 1. Patient was transferred to the intensive care unit postoperatively but has been extubated to 2 L. Patient remains on IV Zosyn. Vertical care, nephrology, surgical, infectious disease service is following. Patient denies chest pain or shortness breath. Patient denies nausea vomiting or diarrhea. Burning or frequency On 09/25/2023 patient was seen and examined on the medical floor, she is alert and oriented x 3 in no apparent distress, there is no fever or chills no headache or dizziness no chest pain no shortness of breath no cough no nausea or vomiting no abdominal pain no diarrhea and no urinary symptoms, patient was noticed by her nurse to have an equal pupils, patient denies any previous knowl edge of abnormal pupil size, CT scan of the brain and neurology consultation will be initiated, hemoglobin today is down to 6.7 and patient will be given 1 unit of red blood cells. On 09/26/2023 patient is alert and oriented x 3. Patient has been tolerating full liquid diet. Patient el on IV Zosyn. Neurology services are following. Current vital signs Temp 98.2, rate 85, respiratory rate 15, blood pressure 151/89 with a pulse ox of 95% on 2 L. Patient denies chest pain or shortness of breath. Patient denies nausea vomiting or diarrhea. Patient denies any urinary burning or frequency. On 09/27/2023 patient was seen and examined on the medical floor, she is alert and oriented x 3 in no distress she denies any symptoms at this time there is no fever or chills, no headache or dizziness no chest pain no shortness of breath no cough no nausea or vomiting no abdominal pain no diarrhea no urinary symptoms On 09/28/2023 patient was seen and examined on the medical floor she is alert and oriented in no apparent distress there is no fever or chills no headache or dizziness no chest pain no shortness of breath no cough no nausea or vomiting no abdominal pain no diarrhea no urinary symptoms multiple specialist input reviewed today will follow in a.m. on 09/29/2023atient is alert and oriented 3. Patient underwent hemodialysis yesterday patient remains on IV steroids at [facility] and Zosyn. White blood cell trending down 17.76.current vital signs temp 97.7, heart rate 84, resp iratory rate 17, blood pressure 157/99 with pulse ox 98% on 4 L on 09/29/2024 patient's alert and oriented 3 patientto have hemodialysis today. Creatinine 2.6 bun 46.3.patient remains on Zosyn, Diflucan and daptomycin. Patient also remains on IV Lasix. Patient maintained on full liquid diet per surgical services. This time patient denies chest pain or shortness of breath. Patient denies nausea vomiting or diarrhea. Patient denies any urinary burning or frequency on 10/01/2023 patient is alert and oriented 3. Patient's diet has been advanced per surgical services. Patient denies chest pain or shortness of breath. Patient denies nausea vomiting or diarrhea. Patient denies any urinary burning or frequency.white blood cell increasing to 23. Patient remains on IV Zosyn, daptomycin and Diflucan. Infectious disease services are following.current vital signs temp 97.5, heart rate 75, respiratory rate 18, blood pressure 158/89 with pulse ox 97% on 4 L On 10/02/2023 patient was seen and examined on the medical floor she is alert and oriented x 3 in no apparent distress there is no fever or chills no headache or dizziness no chest pain no shortness of breath no cough no nausea or vomiting no abdominal pain no diarrhea and no urinary symptoms. Currently she is receiving hemodialysis will continue with current management will follow closely On 10/03/2023 patient is alert and oriented x 3. Patient reports she just does not feel too well today. Current current vital signs Temp 97.5, heart rate 79, respiratory rate 17, blood pressure 118/76 with pulse ox of 99% on 3 L. Lab work currently pending. Patient denies chest pain or shortness of breath. Patient denies nausea vomiting or diarrhea. Patient denies any urinary burning or frequency. Patient has been tolerating low fiber diet Objective - Vital Signs Vital signs: Vital Signs Temp 97.5 F L 10/03/23 07:07 Pulse 79 10/03/23 07:07 Resp 17 10/03/23 07:07 BP 118/76 10/03/23 07:07 Pulse Ox 99 10/03/23 07:07 FiO2 35 09/21/23 20:21 Intake & Output 10/02/23 10/03/23 10/03/23 18:59 06:59 18:59 Intake Total 600 Output Total 2150 700 Balance -1550 -700 Weight 57.3 kg Intake: Hemodialysis 600 Output: Drainage 25 SILVIO Abdomen 25 Urine 500 Stool 125 200 Hemodialysis 1300 Hemodialysis Net Amount 700 Other: Voiding Method External Catheter External Catheter # Voids 1 - Exam Physical examHead normocephalic Neck supple Lungs diminished bilaterally Heart regular rate and rhythm S1-S2, no rub or gallop Abdomen is soft with mild diffuse tenderness especially in the pelvic area bilaterally no organomegaly no palpable masses Extremities no edema Neuro alert and orientated to 3 - Labs CBC & Chem 7: 10/01/23 06:02 10/01/23 06:02 Labs: Abnormal Lab Results - Last 24 Hours (Table) 10/03/23 Range/Units 05:00 PT 35.7 H (10.0-12.5) sec INR 3.6 H (<1.2) Assessment and Plan Assessment: Acute hypoxic respiratory failure secondary to acute exacerbation of COPD and acute systolic congestive heart failure Acute exacerbation of COPD. Patient started on IV steroids Acute systolic congestive heart failure Perforated sigmoid diverticulitis status post sigmoid colectomy with end colostomy on 09/23/2023 Elevated troponins, likely related to renal failure, seen by cardiology no intervention recommended at this time Acute on chronic kidney disease Recent diagnosis of vasculitis at [facility] Recent history of PE/DVT maintained on Coumadin History of cardiomyopathy with EF of 15 to 20% History of tobacco abuse recently quit Unequal pupil size. Neurology service is following DVT prophylaxis lovenox. GI prophylaxis Protonix Pulmonary, cardiology and nephrology services consulted Patient started on IV steroids and IV antibiotics patient started back on hemodialysis
--- NOTE | 2023-10-03 11:49 | P.PN ---
Subjective Progress Note Date: 10/03/23 This is a 63-year-old female patient with a known history of chronic obstructive pulmonary disease, former smoker, previous acute kidney injury requiring dialysis that she completed approximately 2 weeks ago. She presented here to the emergency room today with increasing shortness of breath. Symptoms started just this morning. No fever or chills. No cough or congestion. Mainly dyspnea on minimal exertion. Chest x-ray reveals evidence of COPD with superimposed interstitial opacities, possible pulmonary edema versus atypical pneumonia. White count 27.9. Hemoglobin 10.5. Platelets 294. INR 1.3. Sodium 136. Potassium 4.3. Bicarb 30. BUN 47. Creatinine 1.56. Glucose 196. Troponin 0.205. proBNP 60,000. The patient is seen in consultation in the emergency department. She is currently sitting up on the stretcher. Awake and alert. On BiPAP 14/5 and 40% FiO2 to maintain O2 saturations in the 90s. Been initiated on a heparin drip. Initiated on antibiotics, bronchodilators and steroids. The patient is seen today September 22, 2023 in follow-up in the emergency department. She is awake and alert in no acute distress. Breathing easier today compared to yesterday. She is maintaining good O2 saturations in the 90s on 2 L/min per nasal cannula. She has been off the BiPAP. She remains on a heparin drip. Peak troponin 0.521. She is continued on DuoNeb inhalations, Symbicort, Solu-Medrol. She is continued on ceftriaxone. Chest x-ray shows diffuse interstitial opacities with slight improvement. The patient is seen today September 27, 2023 in follow-up on the regular medical [facility] or. She is currently sitting up in a chair. Awake and alert in no acute distress. She is still receiving oxygen at 6 L/min per nasal cannula. Lactated Ringer's at 75 MLS per hour. She did have an episode of shortness of breath and anxiety last evening. She states she is feeling better today. X-ray reveals evidence of fluid volume overload. No focal consolidation, pneumothorax or pleural effusion. Right internal jugular catheter in place. She is status post 1 unit of packed red blood cells and 2 units of fresh frozen plasma this admission. Abdominal fluid cultures were positive for bacteroids. Wound culture positive for Enterococcus faecium VRE, Enterococcus faecalis VRE and Cha. White count 20.1. Hemoglobin 8.7. Platelets 227. Sodium 135. Potassium 5.8. Bicarb 23. BUN 63. Creatinine 2.46. Glucose 124. She is continued on DuoNeb inhalations, Symbicort, daptomycin and Zosyn. Lovenox for DVT prophylaxis. The patient is seen today September 28, 2023 in follow-up on the regular medical floor. She is currently resting in bed. Awake and alert in no acute distress. Feeling better today compared to yesterday. She is maintaining good O2 saturations in the 90s on 4 L/min per nasal cannula. No IV fluids. She is continued on daptomycin and Zosyn. Chest x-ray reveals right pleural effusion with pulmonary vascular congestion. Left lung is relatively clear. She remains on DuoNeb ventilations, Pulmicort and Perforomist inhalations, Solu-Medrol. Lovenox for DVT prophylaxis. Sodium 131. Potassium 5.1. Bicarb 23. BUN 69. Creatinine 2.68. Glucose 146. She was given Lasix 60 mg IVP x 1. She is currently in a -1.5 L balance. The patient is seen today September 29, 2023 in follow-up on the regular medical floor. She is currently sitting up in bed. Awake and alert in no acute distress. Maintaining good O2 saturations in the 90s on 4 L/min per nasal neida sorin. She is status post 1 unit of packed red blood cells and 2 units of platelets fresh frozen plasma this admission. Abdominal fluid and wound cultures were positive for Enterococcus faecium VRE, Enterococcus faecalis VRE, Cha. White count 17.7. Hemoglobin 7.9. Platelets 233. Sodium 136. Potassium 3.5. Bicarb 27. BUN 33. Creatinine 2.0. Glucose 152. She remains on DuoNeb inhalations, Pulmicort and Perforomist inhalations, Solu-Medrol. Antibiotics in the form of daptomycin and Zosyn. The patient is seen today September 30, 2023 in follow-up on the regular medical floor. She is resting comfortably in bed. Maintaining good O2 saturations in the 90s on 5 L/min per nasal cannula. She is status post 1 unit of packed red blood cells and 2 fresh frozen plasma this admission. Abdominal cultures were positive for Enterococcus faecium and Enterococcus faecalis both VRE. White cou nt 19.6. Hemoglobin 7.5. Platelets 225. INR 1.4. Sodium 137. Potassium 3.8. Bicarb 24. BUN 46. Creatinine 2.6. Glucose 160. She is continued on DuoNeb inhalations, Symbicort, Solu-Medrol. Antibiotics in the form of Zosyn and daptomycin. Lovenox for DVT prophylaxis. Currently on Lasix 60 mg IV every 12 hours. Currently in a -5.9 L balance. The patient is seen today October 01, 2023 in follow-up on the regular medical floor. She is sitting up in bed. Awake and alert in no acute distress. Feeling stronger each day. She is maintaining O2 saturations in the 90s on 4 L/min per nasal cannula. She has been resumed on hemodialysis. She remains on Zosyn and daptomycin. Abdominal cultures were positive for Enterococcus faecium and Enterococcus faecalis both VRE. She remains on DuoNeb inhalations, Symbicort, Solu-Medrol. Remains on Lovenox. White count 23.7. Hemoglobin 8.2. Platelets 238. INR 1.64. Sodium 136. Potassium 4.3. Bicarb 26. BUN 27. Creatinine 1.9. Glucose 140. The patient is seen today October 02, 2023 in follow-up on the regular medical floor. She is sitting up at the bedside. Awake and alert in no acute distress. She has had some issues with dizziness while up. She did receive hemodialysis yesterday with 1.9 L removed. The plan is for hemodialysis again today. She is maintaining good O2 saturations in the 90s on 3.5 L/min per nasal cannula. Normal saline at KVO. She is continued on DuoNeb inhalations, Symbicort, Solu- Medrol. Lovenox for anticoagulation. She remains on daptomycin and Zosyn. Anticoagulated with warfarin. INR 2.0. She remains on Lasix 60 mg every 12 hours. Currently in a -5 L balance. The patient is seen today October 03, 2023 in follow-up on the regular medical floor. She is sitting up at the bedside. Awake and alert in no acute distress. Feeling stronger each day. She maintains a good O2 saturations in the 90s on 3 L/min per nasal cannula. No IV fluids. Chest x-ray continues to small small atelectasis/effusions. Stable. She remains on DuoNeb inhalations, Symbicort, Solu-Medrol. Antibiotics in the form of Zosyn. She remains on Lasix 60 mg IV every 12 hours. Currently in a -5 L balance. Plan is for hemodialysis on Wednesday, October 04, 2023. Objective - Vital Signs Vital signs: Vital Signs Temp 97.5 F L 10/03/23 07:07 Pulse 80 10/03/23 10:05 Resp 17 10/03/23 07:07 BP 118/76 10/03/23 07:07 Pulse Ox 96 10/03/23 09:49 FiO2 35 09/21/23 20:21 Intake & Output 10/02/23 10/03/23 10/03/23 18:59 06:59 18:59 Intake Total 600 Output Total 2150 700 Balance -1550 -700 Weight 57.3 kg Intake: Hemodialysis 600 Output: Drainage 25 SILVIO Abdomen 25 Urine 500 Stool 125 200 Hemodialysis 1300 Hemodialysis Net Amount 700 Other: Voiding Method External Catheter External Catheter # Voids 1 - Exam GENERAL EXAM: Alert, pleasant 63-year-old female, on 3 L/min per nasal cannula, in no apparent distress. HEAD: Normocephalic. EYES: Normal reaction of pupils, equal size. NOSE: Clear with pink turbinates. THROAT: No erythema or exudates. NECK: No masses, no JVD. CHEST: No chest wall deformity. LUNGS: Equal air entry with bibasilar crackles, diminished. CVS: S1 and S2 normal with no audible murmur, regular rhythm. ABDOMEN: Colostomy with stool present. Dressing intact. SPINE: No scoliosis or deformity SKIN: No rashes CENTRAL NERVOUS SYSTEM: No focal deficits, tone is normal in all 4 extremities. EXTREMITIES: There is 1+ peripheral edema. No clubbing, no cyanosis. Peripheral pulses are intact. - Labs CBC & Chem 7: 10/01/23 06:02 10/01/23 06:02 Labs: Abnormal Lab Results - Last 24 Hours (Table) 10/03/23 Range/Units 05:00 PT 35.7 H (10.0-12.5) sec INR 3.6 H (<1.2) Assessment and Plan Assessment: Acute hypoxemic respiratory failure secondary to an acute exacerbation of chronic obstructive pulmonary disease, acute systolic congestive heart failure Status post exploratory laparotomy, sigmoid colectomy, and end sigmoid colostomy for ruptured sigmoid diverticulum on September 23, 2023. Cultures positive for bacteroids. Enterococcus faecium VRE, Enterococcus faecalis VRE, Cha. Currently on daptomycin and Zosyn Acute kidney injury secondary to ANCA vasculitis and cardiorenal syndrome previously on hemodialysis. Permacath still in place and restarted on hemodialysis 09/28/2023 Leukocytosis Anemia requiring 1 unit of packed red blood cells this admission. Current hemoglobin 8.2 Severe cardiomyopathy with an ejection fraction of 25-30 % History of chronic obstructive pulmonary disease Chronic tobacco dependence ANCA vasculitis and was to have had a kidney biopsy in June 2023 unclear if this was done History of PE/DVT, on warfarin, INR 3.6 Plan: The patient was seen and evaluated Chest x-ray, labs and medications reviewed Titrate down the FiO2 as tolerated Continue the current treatment plan Increase her activity as tolerated Plan is for hemodialysis tomorrow Plan is for [facility] at discharge I have personally seen and examined the patient, performed the documentation and the assessment and plan as written. Number of minutes spent on the visit: 10.
[2023-10-03 11:57] LABS: Anisocytosis Moderate; HCT 20.2 % (34.0-46.0); Hypochromasia Moderate; MCH 33.2 pg (25.0-35.0); MCHC 34.4 g/dL (31.0-37.0); MCV 96.5 fL (80.0-100.0); Macrocytosis Moderate; Platelet Count 208 k/uL (150-450); Poikilocytosis Slight; RDW 22.1 % (11.5-15.5)
--- NOTE | 2023-10-03 12:00 | P.PN ---
Subjective Progress Note Date: 10/03/23 Principal diagnosis: Shortness of breath. This is a 63-year-old female patient with a known history of chronic obstructive pulmonary disease, former smoker, previous acute kidney injury requiring dialysis that she completed approximately 2 weeks ago. She presented here to the emergency room today with increasing shortness of breath. Symptoms started just this morning. No fever or chills. No cough or congestion. Mainly dyspnea on minimal exertion. Chest x-ray reveals evidence of COPD with superimposed interstitial opacities, possible pulmonary edema versus atypical pneumonia. White count 27.9. Hemoglobin 10.5. Platelets 294. INR 1.3. Sodium 136. Potassium 4.3. Bicarb 30. BUN 47. Creatinine 1.56. Glucose 196. Troponin 0.205. proBNP 60,000. The patient is seen in consultation in the emergency department. She is currently sitting up on the stretcher. Awake and alert. On BiPAP 14/5 and 40% FiO2 to maintain O2 saturations in the 90s. Been initiated o n a heparin drip. Initiated on antibiotics, bronchodilators and steroids. The patient is seen today September 22, 2023 in follow-up in the emergency department. She is awake and alert in no acute distress. Breathing easier today compared to yesterday. She is maintaining good O2 saturations in the 90s on 2 L/min per nasal cannula. She has been off the BiPAP. She remains on a heparin drip. Peak troponin 0.521. She is continued on DuoNeb inhalations, Symbicort, Solu-Medrol. She is continued on ceftriaxone. Chest x-ray shows diffuse interstitial opacities with slight improvement. Progress note dated September 23, 2023. 63-year-old female with a history of underlying COPD. The patient was initially seen in the emergency department, 2 days ago, with a COPD exacerbation. Initially, the patient had mental status changes, and she was not particularly alert, and required BiPAP. Currently, she is doing much better. She is currently on 2 L. She did not use the BiPAP last night. She is complaining of left groin pain, and thinks that she may have a bladder infection. The urinalysis call, culture and sensitivity have been ordered. From the pulmonary standpoint, she is improved. Current labs include a white count 23.1, hemoglobin 8.4, hematocrit 26.3, and platelet count 294,000. PT 21, INR 2.1, PTT 51.4. Sodium 135, potassium 3.9, chloride 99, CO2 26, BUN 57, creatinine 1.85. Urine is colorless and clear. There is 2+ protein. Trace ketones. Nitrite was negative. LE was negative. There is only 6 WBCs, no bacteria. CT of the abdomen and pelvis shows evidence of pneumoperitoneum with findings of sigmoid diverticulitis. Progress note dated September 25, 2023. 63-year-old female with history of COPD. She presented to the emergency department with a COPD exacerbation. More recently, the patient was complaining of left groin pain, a CT scan was done which showed pneumoperitoneum, and bowel perforation. She is postop day #2, status post exploratory laparotomy, for perf orated sigmoid diverticulitis, with a colectomy and sigmoid colostomy. She is currently doing much better. She is on 2 L of oxygen. Saturations are 98%. Current labs include a white count of 19.1, hemoglobin 6.7, hematocrit 22.4, and a platelet count of 235,000. Sodium 137, potassium 5.3, chlorides 98, CO2 25, BUN 51, and creatinine 2.4. Glucose is 132. The patient's wound culture shows evidence of Enterococcus faefium and Enterococcus faecalis. Therapies are currently pending. No recent chest x-ray. The patient is currently on Zosyn. Progress note dated September 26, 2023. The patient is seen today in room 452. The patient is 63-year-old female. She initially presented with a COPD exacerbation. She is postoperative day #3, status post exploratory laparotomy, for perforated sigmoid diverticulum with colectomy and sigmoid colostomy. Currently, the patient is on 3 L of oxygen. She is receiving lactated Ringer's at 75 cc an hour. She continues on Zosyn. The patient is feeling much better. Laboratory data includes only a PT of 14.8, and INR of 1.4. Abdominal cultures, from September 22 show Bacteroides, and cultures from the wound, on September 22 show evidence of Enterococcus, which are vancomycin- resistant enterococci. Objective - Vital Signs Vital signs: Vital Signs Temp 97.5 F L 10/03/23 07:07 Pulse 80 10/03/23 10:05 Resp 17 10/03/23 07:07 BP 118/76 07/28/24 07:07 Pulse Ox 96 10/03/23 09:49 FiO2 35 09/21/23 20:21 Intake & Output 10/02/23 10/03/23 10/03/23 18:59 06:59 18:59 Intake Total 600 Output Total 2150 700 Balance -1550 -700 Weight 57.3 kg Intake: Hemodialysis 600 Output: Drainage 25 SILVIO Abdomen 25 Urine 500 Stool 125 200 Hemodialysis 1300 Hemodialysis Net Amount 700 Other: Voiding Method External Catheter External Catheter # Voids 1 - Labs CBC & Chem 7: 10/01/23 06:02 10/01/23 06:02 Labs: Abnormal Lab Results - Last 24 Hours (Table) 10/03/23 Range/Units 05:00 PT 35.7 H (10.0-12.5) sec INR 3.6 H (<1.2)
[2023-10-03 12:02] LABS: ALT 20 U/L (4-34); AST 28 U/L (14-36); African American GFR (CKD) 34 (>60 ml/min/1.73 sqM); Albumin 2.4 g/dL (3.5-5.0); Albumin/Globulin Ratio 1.3; Alkaline Phosphatase 63 U/L (38-126); Anion Gap 6 mmol/L; Blood Urea Nitrogen 39 mg/dL (7-17); Calcium 8.2 mg/dL (8.4-10.2); Carbon Dioxide 25 mmol/L (22-30); Chloride 99 mmol/L (98-107); Globulin 1.8 g/dL; Glucose 142 mg/dL (74-99); Non-African American GFR(CKD) 30 (>60 ml/min/1.73 sqM); Potassium 4.9 mmol/L (3.5-5.1); Sodium 130 mmol/L (137-145); Total Bilirubin 0.6 mg/dL (0.2-1.3); Total Protein 4.2 g/dL (6.3-8.2)
--- NOTE | 2023-10-03 12:02 | P.PN ---
Subjective Progress Note Date: 10/03/23 CHIEF COMPLAINT: Perforated sigmoid diverticulitis HISTORY OF PRESENT ILLNESS: The patient is a 63-year-old female status post diverting colostomy for perforated diverticulitis. She is resting comfortably in the bed. No acute overnight events. ROS: No reports of nausea and vomiting. No fevers or chills. No new chest pain. No productive sputum PHYSICAL EXAM: VITAL SIGNS: Reviewed CONSTITUTIONAL: Well developed and in no acute distress. Nontoxic in appearance. EYES: Conjuctivae without sclera icterus. Extraocular movements grossly intact. HEAD, EARS, NOSE, THROAT: Moist buccal mucosa. Head is atraumatic, normocephalic. Hears conversational speech. No nasal drainage. RESPIRATORY: Non-labored respirations and equal bilateral excursions. CARDIOVASCULAR: Palpable 2+ radial pulses. ABDOMEN: Dressing intact. SILVIO serosanguineous. Ostomy functioning. MUSCULOSKELETAL: No gross deformity of the lower extremities noted. No clubbing. No cyanosis. SKIN: Good skin turgor. Well perfused. NEUROLOGIC: Cranial nerves II through XII grossly intact. No focal or lateralizing signs. PSYCH: Appropriate affect. CLINICAL LABS: Reviewed. WBC elevated 19,000-23 patient is now on Solu-M edrol.,000. ASSESSMENT: 1. Perforated sigmoid diverticulitis status post colostomy 2. Acute kidney injury secondary to ANCA vasculitis PLAN: 1. Leukocytosis is elevated secondary to start of Solu-Medrol. Otherwise nontoxic in appearance. 2. Antibiotic management per infectious disease. Objective - Vital Signs Vital signs: Vital Signs Temp 97.5 F L 10/03/23 07:07 Pulse 80 10/03/23 10:05 Resp 17 10/03/23 07:07 BP 118/76 10/03/23 07:07 Pulse Ox 96 10/03/23 09:49 FiO2 35 09/21/23 20:21 Intake & Output 10/02/23 10/03/23 10/03/23 18:59 06:59 18:59 Intake Total 600 Output Total 2150 700 Balance -1550 -700 Weight 57.3 kg Intake: Hemodialysis 600 Output: Drainage 25 SILVIO Abdomen 25 Urine 500 Stool 125 200 Hemodialysis 1300 Hemodialysis Net Amount 700 Other: Voiding Method External Catheter External Catheter # Voids 1 - Labs CBC & Chem 7: 10/01/23 06:02 10/01/23 06:02 Labs: Abnormal Lab Results - Last 24 Hours (Table) 10/03/23 Range/Units 05:00 PT 35.7 H (10.0-12.5) sec INR 3.6 H (<1.2)
[2023-10-03 13:33] LABS: Neutrophils % (M) 97 %; Nucleated Red Blood Cells 8 /100 WBC (0-0); Total Cells Counted 100
[2023-10-03 13:34] LABS: Polychromasia Present
--- NOTE | 2023-10-03 13:49 | P.PN ---
Subjective patient is seen for follow-up for acute kidney injury. History of hemodialysis dependent acute kidney injury with recovery of renal function and patient has been off of dialysis for about 3 weeks now. Restarted on dialysis this admission due to severe volume overload and worsening renal function. UF of about 8 L over the last 4 days Oxygen requirement decreased but patient remains quite debilitated. There are plans for discharge to subacute rehab. complaining of abdominal pain today. Objective - Vital Signs Vital signs: Vital Signs Temp 97.5 F L 10/03/23 07:07 Pulse 88 10/03/23 13:26 Resp 17 10/03/23 07:07 BP 118/76 10/03/23 07:07 Pulse Ox 96 10/03/23 09:49 FiO2 35 09/21/23 20:21 Intake & Output 10/02/23 10/03/23 10/03/23 18:59 06:59 18:59 Intake Total 600 Output Total 2150 700 Balance -1550 -700 Weight 57.3 kg Intake: Hemodialysis 600 Output: Drainage 25 SILVIO Abdomen 25 Urine 500 Stool 125 200 Hemodialysis 1300 Hemodialysis Net Amount 700 Other: Voiding Method External Catheter External Catheter # Voids 1 - Exam patient is awake, comfortable, mild respiratory distress. Examination of the heart S1 and S2 Examination of the lungs bilateral breath sounds are heard Abdomen is soft ,mild tenderness Examination of lower extremities shows no edema FLOWER GROWER exam grossly intact - Labs CBC & Chem 7: 10/03/23 11:06 10/03/23 11:06 Labs: Abnormal Lab Results - Last 24 Hours (Table) 10/03/23 10/03/23 10/03/23 Range/Units 05:00 11:06 11:06 WBC 30.0 H (3.8-10.6) k/uL RBC 2.10 L (3.80-5.40) m/uL Hgb 7.0 L D (11.4-16.0) gm/dL Hct 20.2 L (34.0-46.0) % RDW 22.1 H (11.5-15.5) % Neutrophils # (Manual) 29.10 H (1.3-7.7) k/uL Lymphocytes # (Manual) 0.60 L (1.0-4.8) k/uL Nucleated RBCs 8 H (0-0) /100 WBC PT 35.7 H (10.0-12.5) sec INR 3.6 H (<1.2) Sodium 130 L (137-145) mmol/L BUN 39 H (7-17) mg/dL Creatinine 1.81 H (0.52-1.04) mg/dL Glucose 142 H (74-99) mg/dL Calcium 8.2 L (8.4-10.2) mg/dL Total Protein 4.2 L (6.3-8.2) g/dL Albumin 2.4 L (3.5-5.0) g/dL Assessment and Plan Assessment: 1. 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 Also component of cardiorenal syndrome. Renal function slowly worsening this admission. Creatinine was 1.9 dated September 07, 2023. Patient was hemodialysis dependent but was recently taken off hemodialysis. Ultrasound from June 2023 showed no evidence of hydronephrosis. Restarted hemodialysis on 09/28/2023 due to worsening renal function and volume overload. 2. ANCA vasculitis maintained on prednisone. Status post 2 doses of IV r ituximab 1 g completed August 2023. Maintained on 30 mg of prednisone outpatient. 3. Acute on chronic systolic CHF ejection fraction of 25 to 30% with severe pulmonary hypertension and moderate tricuspid regurgitation. 4. Acute hypoxic respiratory failure secondary to COPD exacerbation as well as CHF. Some improvement in chest x-ray noted with ultrafiltration with hemodialysis. 5. History of PE maintained on anticoagulation. 6. Anemia. high ferritin noted. 7. Pneumoperitoneum status post diagnostic laparoscopy, sigmoid colectomy with end colostomy 09/23/2023. 8. Volume overload, improving. Status post UF close to 8 L over the last 4 days. Plan: continue with Lasix. next hemodialysis on 10/04/2023 repeat serologies pending. Continue IV steroids
[2023-10-03] MEDS: WARFARIN 0.5 MG TAB PO ONE (15:57)
--- NOTE | 2023-10-03 17:12 | P.PN ---
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 On today's evaluation that is 10/03/2023,the patient remains to be afebrile, patient is on 2 L nasal cannula supplemental oxygen and denies any shortness of breath no chest pain or cough.Patient denies having any nausea or vomiting, no abdominal pain patient mention has been slightly groggy she did not sleep last night. Patient white count is up to 30,000, creatinine is 1.81 INR is 3.6 Objective - Vital Signs Vital signs: Vital Signs Temp 96.9 F L 10/03/23 14:00 Pulse 88 10/03/23 16:56 Resp 18 10/03/23 16:56 BP 133/70 10/03/23 14:00 Pulse Ox 96 10/03/23 14:00 FiO2 35 09/21/23 20:21 Intake & Output 10/02/23 10/03/23 10/03/23 18:59 06:59 18:59 Intake Total 600 Output Total 2150 700 200 Balance -1550 -700 -200 Weight 57.3 kg Intake: Hemodialysis 600 Output: Drainage 25 SILVIO Abdomen 25 Urine 500 200 Stool 125 200 Hemodialysis 1300 Hemodialysis Net Amount 700 Other: Voiding Method External Catheter External Catheter # Voids 1 - Exam GENERAL DESCRIPTION: Middle-aged female lying in bed in no distress RESPIRATORY SYSTEM: Unlabored breathing , decreased breath sounds at bases HEART: S1 S2 regular rate and rhythm , ABDOMEN: Soft , mild tenderness EXTREMITIES: No edema feet - Labs CBC & Chem 7: 10/03/23 11:06 10/03/23 11:06 Labs: Abnormal Lab Results - Last 24 Hours (Table) 10/03/23 10/03/23 10/03/23 Range/Units 05:00 11:06 11:06 WBC 30.0 H (3.8-10.6) k/uL RBC 2.10 L (3.80-5.40) m/uL Hgb 7.0 L D (11.4-16.0) gm/dL Hct 20.2 L (34.0-46.0) % RDW 22.1 H (11.5-15.5) % Neutrophils # (Manual) 29.10 H (1.3-7.7) k/uL Lymphocytes # (Manual) 0.60 L (1.0-4.8) k/uL Nucleated RBCs 8 H (0-0) /100 WBC PT 35.7 H (10.0-12.5) sec INR 3.6 H (<1.2) Sodium 130 L (137-145) mmol/L BUN 39 H (7-17) mg/dL Creatinine 1.81 H (0.52-1.04) mg/dL Glucose 142 H (74-99) mg/dL Calcium 8.2 L (8.4-10.2) mg/dL Total Protein 4.2 L (6.3-8.2) g/dL Albumin 2.4 L (3.5-5.0) g/dL Assessment and Plan (1) Perforation of sigmoid colon due to diverticulitis Current Visit: Yes Status: Acute Code(s): K57.20 - DVTRCLI OF LG INT W PERFORATION AND ABSCESS W/O BLEEDING SNOMED Code(s): 2290585832705069 (2) Peritonitis Current Visit: Yes Status: Acute Code(s): K65.9 - PERITONITIS, UNSPECIFIED SNOMED Code(s): 43842045 (3) Leukocytosis Current Visit: No Status: Acute Code(s): D72.829 - ELEVATED WHITE BLOOD CELL COUNT, UNSPECIFIED SNOMED Code(s): 451572667 (4) Sepsis Current Visit: Yes Status: Acute Code(s): A41.9 - SEPSIS, UNSPECIFIED ORGANISM SNOMED Code(s): 43870642 Plan: 1patient presented to the hospital with sepsis in this patient who did have a fever tachycardia meeting criteria for SIRS source is likely perforated diverticulitis with peritonitis and need to cover for the enteric gram-negative both aerobes and anaerobes patient also have complaint of increasing shortness of breath and cough CT shows bilateral lower lobe consolidation, possible pneumonia 2-patient is status post diagnostic laparoscopy sigmoid resection and end colostomy abdominal culture currently growing Enterococcus faecium and faecalis and Cha 3-patient is afebrile , further worsening the white count more likely due to Solu-Medrol, consider getting back on the dose of Solu-Medrol if any further worsening may benefit from CT abdominal pelvis to make sure no evidence of any worsening infection 4-patient is currently covered with with Zosyn, daptomycin and Diflucan while inpatient, and monitor clinical course closely Dictation was produced using [employer] dictation software. please excuse any gramma tical, word or spelling errors. Time with Patient: Less than 30
[2023-10-04 06:01] LABS: INR 4.6 (<1.2); Prothrombin Time 44.7 sec (10.0-12.5)
[2023-10-04 08:57] LABS: ALT 25 U/L (8-44); AST 28 U/L (13-35); Albumin 2.8 g/dL (3.8-4.9); Albumin/Globulin Ratio 1.87 Ratio (1.60-3.17); Alkaline Phosphatase 74 U/L (41-126); BUN/Creat Ratio 18.56 Ratio (12.00-20.00); Blood Urea Nitrogen 50.1 mg/dL (9.0-27.0); Calcium 8.1 mg/dL (8.7-10.3); Carbon Dioxide 23.6 mmol/L (21.6-31.8); Chloride 97 mmol/L (96-109); Globulin 1.5 g/dL (1.6-3.3); Glucose 162 mg/dL (70-110); Sodium 135 mmol/L (135-145); Total Bilirubin 0.3 mg/dL (0.3-1.2); Total Protein 4.3 g/dL (6.2-8.2)
[2023-10-04 09:22] LABS: Acanthocytes 2+; Anisocytosis (M) 2+; Basophils # (M) 0 X 10*3/uL (0.00-0.10); Eosinophils # (M) 0 X 10*3/uL (0.04-0.35); HCT 19.2 % (37.2-46.3); Lymphocytes # (M) 1.38 X 10*3/uL (0.90-5.00); MCH 30.9 pg (27.0-32.0); MCHC 31.3 g/dL (32.0-37.0); Monocytes # (M) 0 X 10*3/uL (0.20-1.00); Myelocytes % 1 % (0-0); NRBC Per 100 WBC 3.33 X 10*3/uL (0.00-0.01); Neutrophils # (M) 32.88 X 10*3/uL (1.80-7.70); Neutrophils % (M) 95 %; Platelet Count 191 X 10*3/uL (140-440); Polychromasia 2+; RBC 1.94 X 10*6/uL (4.10-5.20); RDW 23.2 % (11.5-14.5); Schistocytes 1+; Toxic Vacuolation 2+; WBC 34.61 X 10*3/uL (4.50-10.00)
[2023-10-04] MEDS ORDERED: IOPAMIDOL CONTRAST (ORAL USE) VIAL PO PRN (11:52)
--- NOTE | 2023-10-04 12:29 | P.PN ---
Subjective Progress Note Date: 10/04/23 CHIEF COMPLAINT: Perforated sigmoid diverticulitis HISTORY OF PRESENT ILLNESS: postop day #10 status post diagnostic laparoscopy with sigmoid colectomy and end colostomy. Patient currently getting hemodia lysis this morning. She denies any abdominal pain. Denies any nausea or vomiting. She is having stool through her colostomy bag. No blood noted in stool. Stool is brown and formed. Afebrile. WBC is up at 34.6 hemoglobin is down from 7-6.0 platelets 191 INR 4.6 creatinine 2.7 PHYSICAL EXAM: VITAL SIGNS: Reviewed. GENERAL: no acute distress. ABDOMEN: Soft. nondistended. Incision site with ecchymosis and likely hematoma. There is some firmness around the middle of the incision. Ostomy with stool present ASSESSMENT: 1. perforated sigmoid diverticulitis 2. Leukocytosis PLAN: -Concerns for possible hematoma at incision site with elevated INR and drop in hemoglobin. Vitamin K 5 mg IV ordered. Agree with blood transfusion. Hold Coumadin -Repeat hemoglobin and INR in a.m. -CT scan abdomen pelvis with contrast ordered for further evaluation of elevated white count. Dr. Alvarenga did discuss case with infectious disease Dr. Benton -Continue low fiber -Continue antibiotics Physician Attendant Arcade note has been reviewed by physician. Signing provider agrees with the documented findings, assessment, and plan of care. Objective - Vital Signs Vital signs: Vital Signs Temp 97.1 F L 10/04/23 07:37 Pulse 81 10/04/23 08:54 Resp 22 10/04/23 08:54 BP 133/75 10/04/23 07:37 Pulse Ox 93 L 10/04/23 07:37 FiO2 35 09/21/23 20:21 Intake & Output 10/03/23 10/04/23 10/04/23 18:59 06:59 18:59 Output Total 200 580 Balance -200 -580 Weight 57.3 kg Output: Drainage 30 SILVIO Abdomen 30 Urine 200 350 Straight 50 Stool 200 Other: Voiding Method External Catheter External Catheter # Voids 1 - Labs CBC & Chem 7: 10/04/23 05:24 10/04/23 05:24 Labs: Abnormal Lab Results - Last 24 Hours (Table) 10/03/23 10/04/23 10/04/23 Range/Units 11:06 05:24 05:24 WBC 30.0 H 34.61 H (3.8-10.6) k/uL RBC 2.10 L 1.94 L (3.80-5.40) m/uL Hgb 7.0 L D 6.0 A* (11.4-16.0) gm/dL Hct 20.2 L 19.2 A* (34.0-46.0) % MCV 99.0 H (80.0-97.0) FL MCHC 31.3 L (32.0-37.0) g/dL RDW 22.1 H 23.2 H (11.5-15.5) % Neutrophils # (Manual) 29.10 H 32.88 H (1.3-7.7) k/uL Lymphocytes # (Manual) 0.60 L (1.0-4.8) k/uL Monocytes # (Manual) 0 L (0.20-1.00) X 10*3/uL Eosinophils # (Manual) 0 L (0.04-0.35) X 10*3/uL Nucleated RBCs 8 H (0-0) /100 WBC NRBC/100 WBC Diff 3.33 H (0.00-0.01) X 10*3/uL Toxic Vacuolation 2+ A Polychromasia 2+ A Anisocytosis (manual) 2+ A Acanthocytes (Spur) 2+ A Schistocytes 1+ A PT (10.0-12.5) sec INR (<1.2) Anion Gap 14.40 H (4.00-12.00) mmol/L BUN 50.1 H (9.0-27.0) mg/dL Creatinine 2.7 H (0.6-1.5) mg/dL Est GFR (CKD-EPI) 19 L (>=60) Glucose 162 H (70-110) mg/dL Calcium 8.1 L (8.7-10.3) mg/dL Total Protein 4.3 L (6.2-8.2) g/dL Albumin 2.8 L (3.8-4.9) g/dL Globulin 1.5 L (1.6-3.3) g/dL 10/04/23 Range/Units 05:24 WBC (3.8-10.6) k/uL RBC (3.80-5.40) m/uL Hgb (11.4-16.0) gm/dL Hct (34.0-46.0) % MCV (80.0-97.0) FL MCHC (32.0-37.0) g/dL RDW (11.5-15.5) % Neutrophils # (Manual) (1.3-7.7) k/uL Lymphocytes # (Manual) (1.0-4.8) k/uL Monocytes # (Manual) (0.20-1.00) X 10*3/uL Eosinophils # (Manual) (0.04-0.35) X 10*3/uL Nucleated RBCs (0-0) /100 WBC NRBC/100 WBC Diff (0.00-0.01) X 10*3/uL Toxic Vacuolation Polychromasia Anisocytosis (manual) Acanthocytes (Spur) Schistocytes PT 44.7 H (10.0-12.5) sec INR 4.6 H (<1.2) Anion Gap (4.00-12.00) mmol/L BUN (9.0-27.0) mg/dL Creatinine (0.6-1.5) mg/dL Est GFR (CKD-EPI) (>=60) Glucose (70-110) mg/dL Calcium (8.7-10.3) mg/dL Total Protein (6.2-8.2) g/dL Albumin (3.8-4.9) g/dL Globulin (1.6-3.3) g/dL
--- NOTE | 2023-10-04 13:44 | P.PN ---
Subjective Progress Note Date: 10/04/23 This is a 63-year-old female patient with a known history of chronic obstructive pulmonary disease, former smoker, previous acute kidney injury requiring dialysis that she completed approximately 2 weeks ago. She presented here to the emergency room today with increasing shortness of breath. Symptoms started just this morning. No fever or chills. No cough or congestion. Mainly dyspnea on minimal exertion. Chest x-ray reveals evidence of COPD with superimposed interstitial opacities, possible pulmonary edema versus atypical pneumonia. White count 27.9. Hemoglobin 10.5. Platelets 294. INR 1.3. Sodium 136. Potassium 4.3. Bicarb 30. BUN 47. Creatinine 1.56. Glucose 196. Troponin 0.205. proBNP 60,000. The patient is seen in consultation in the emergency department. She is currently sitting up on the stretcher. Awake and alert. On BiPAP 14/5 and 40% FiO2 to maintain O2 saturations in the 90s. Been initiated on a heparin drip. Initiated on antibiotics, bronchodilators and steroids. The patient is seen today September 22, 2023 in follow-up in the emergency department. She is awake and alert in no acute distress. Breathing easier today compared to yesterday. She is maintaining good O2 saturations in the 90s on 2 L/min per nasal cannula. She has been off the BiPAP. She remains on a heparin drip. Peak troponin 0.521. She is continued on DuoNeb inhalations, Symbicort, Solu-Medrol. She is continued on ceftriaxone. Chest x-ray shows diffuse interstitial opacities with slight improvement. The patient is seen today September 27, 2023 in follow-up on the regular medical [facility] or. She is currently sitting up in a chair. Awake and alert in no acute distress. She is still receiving oxygen at 6 L/min per nasal cannula. Lactated Ringer's at 75 MLS per hour. She did have an episode of shortness of breath and anxiety last evening. She states she is feeling better today. X-ray reveals evidence of fluid volume overload. No focal consolidation, pneumothorax or pleural effusion. Right internal jugular catheter in place. She is status post 1 unit of packed red blood cells and 2 units of fresh frozen plasma this admission. Abdominal fluid cultures were positive for bacteroids. Wound culture positive for Enterococcus faecium VRE, Enterococcus faecalis VRE and Cha. White count 20.1. Hemoglobin 8.7. Platelets 227. Sodium 135. Potassium 5.8. Bicarb 23. BUN 63. Creatinine 2.46. Glucose 124. She is continued on DuoNeb inhalations, Symbicort, daptomycin and Zosyn. Lovenox for DVT prophylaxis. The patient is seen today September 28, 2023 in follow-up on the regular medical floor. She is currently resting in bed. Awake and alert in no acute distress. Feeling better today compared to yesterday. She is maintaining good O2 saturations in the 90s on 4 L/min per nasal cannula. No IV fluids. She is continued on daptomycin and Zosyn. Chest x-ray reveals right pleural effusion with pulmonary vascular congestion. Left lung is relatively clear. She remains on DuoNeb ventilations, Pulmicort and Perforomist inhalations, Solu-Medrol. Lovenox for DVT prophylaxis. Sodium 131. Potassium 5.1. Bicarb 23. BUN 69. Creatinine 2.68. Glucose 146. She was given Lasix 60 mg IVP x 1. She is currently in a -1.5 L balance. The patient is seen today September 29, 2023 in follow-up on the regular medical floor. She is currently sitting up in bed. Awake and alert in no acute distress. Maintaining good O2 saturations in the 90s on 4 L/min per nasal neida sorin. She is status post 1 unit of packed red blood cells and 2 units of platelets fresh frozen plasma this admission. Abdominal fluid and wound cultures were positive for Enterococcus faecium VRE, Enterococcus faecalis VRE, Cha. White count 17.7. Hemoglobin 7.9. Platelets 233. Sodium 136. Potassium 3.5. Bicarb 27. BUN 33. Creatinine 2.0. Glucose 152. She remains on DuoNeb inhalations, Pulmicort and Perforomist inhalations, Solu-Medrol. Antibiotics in the form of daptomycin and Zosyn. The patient is seen today September 30, 2023 in follow-up on the regular medical floor. She is resting comfortably in bed. Maintaining good O2 saturations in the 90s on 5 L/min per nasal cannula. She is status post 1 unit of packed red blood cells and 2 fresh frozen plasma this admission. Abdominal cultures were positive for Enterococcus faecium and Enterococcus faecalis both VRE. White cou nt 19.6. Hemoglobin 7.5. Platelets 225. INR 1.4. Sodium 137. Potassium 3.8. Bicarb 24. BUN 46. Creatinine 2.6. Glucose 160. She is continued on DuoNeb inhalations, Symbicort, Solu-Medrol. Antibiotics in the form of Zosyn and daptomycin. Lovenox for DVT prophylaxis. Currently on Lasix 60 mg IV every 12 hours. Currently in a -5.9 L balance. The patient is seen today October 01, 2023 in follow-up on the regular medical floor. She is sitting up in bed. Awake and alert in no acute distress. Feeling stronger each day. She is maintaining O2 saturations in the 90s on 4 L/min per nasal cannula. She has been resumed on hemodialysis. She remains on Zosyn and daptomycin. Abdominal cultures were positive for Enterococcus faecium and Enterococcus faecalis both VRE. She remains on DuoNeb inhalations, Symbicort, Solu-Medrol. Remains on Lovenox. White count 23.7. Hemoglobin 8.2. Platelets 238. INR 1.64. Sodium 136. Potassium 4.3. Bicarb 26. BUN 27. Creatinine 1.9. Glucose 140. The patient is seen today October 02, 2023 in follow-up on the regular medical floor. She is sitting up at the bedside. Awake and alert in no acute distress. She has had some issues with dizziness while up. She did receive hemodialysis yesterday with 1.9 L removed. The plan is for hemodialysis again today. She is maintaining good O2 saturations in the 90s on 3.5 L/min per nasal cannula. Normal saline at KVO. She is continued on DuoNeb inhalations, Symbicort, Solu- Medrol. Lovenox for anticoagulation. She remains on daptomycin and Zosyn. Anticoagulated with warfarin. INR 2.0. She remains on Lasix 60 mg every 12 hours. Currently in a -5 L balance. The patient is seen today October 03, 2023 in follow-up on the regular medical floor. She is sitting up at the bedside. Awake and alert in no acute distress. Feeling stronger each day. She maintains a good O2 saturations in the 90s on 3 L/min per nasal cannula. No IV fluids. Chest x-ray continues to small small atelectasis/effusions. Stable. She remains on DuoNeb inhalations, Symbicort, Solu-Medrol. Antibiotics in the form of Zosyn. She remains on Lasix 60 mg IV every 12 hours. Currently in a -5 L balance. Plan is for hemodialysis on Wednesday, October 04, 2023. The patient is seen today October 04, 2023 in follow-up on the regular medical floor. She is awake and alert in no acute distress. Sitting up in bed. Curre ntly receiving hemodialysis. She is maintaining O2 saturations in the 90s 3 L/min per nasal cannula. She has been afebrile. Hemodynamically stable. Her hemoglobin this morning was 6.0. She is to receive a second unit of packed red blood cells. White count 34.6. Platelets 191. INR 4.6. Sodium 135. Potassium 5.0. Bicarb 24. BUN 50. Creatinine 2.7. Abdominal wound cultures were positive for Enterococcus faecium VRE. She remains on DuoNeb inhalations, Symbicort, Solu-Medrol. Antibiotics in the form of daptomycin and Zosyn. Objective - Vital Signs Vital signs: Vital Signs Temp 97.1 F L 10/04/23 07:37 Pulse 81 10/04/23 08:54 Resp 22 10/04/23 08:54 BP 133/75 10/04/23 07:37 Pulse Ox 93 L 10/04/23 07:37 FiO2 35 09/21/23 20:21 Intake & Output 10/03/23 10/04/23 10/04/23 18:59 06:59 18:59 Output Total 200 580 Balance -200 -580 Weight 57.3 kg Output: Drainage 30 SILVIO Abdomen 30 Urine 200 350 Straight 50 Stool 200 Other: Voiding Method External Catheter External Catheter # Voids 1 - Exam GENERAL EXAM: Alert, pleasant 63-year-old female, up in bed, having hemodialysis, on 3 L/min per nasal cannula, in no apparent distress. HEAD: Normocephalic. EYES: Normal reaction of pupils, equal size. NOSE: Clear with pink turbinates. THROAT: No erythema or exudates. NECK: No masses, no JVD. CHEST: No chest wall deformity. LUNGS: Equal air entry with bibasilar crackles, diminished. CVS: S1 and S2 normal with no audible murmur, regular rhythm. ABDOMEN: Colostomy with stool present. Dressing intact. SPINE: No scoliosis or deformity SKIN: No rashes CENTRAL NERVOUS SYSTEM: No focal deficits, tone is normal in all 4 extremities. EXTREMITIES: There is 1+ peripheral edema. No clubbing, no cyanosis. Peripheral pulses are intact. - Labs CBC & Chem 7: 10/04/23 05:24 10/04/23 05:24 Labs: Abnormal Lab Results - Last 24 Hours (Table) 10/04/23 10/04/23 10/04/23 Range/Units 05:24 05:24 05:24 WBC 34.61 H (4.50-10.00) X 10*3/uL RBC 1.94 L (4.10-5.20) X 10*6/uL Hgb 6.0 A* (12.0-15.0) g/dL Hct 19.2 A* (37.2-46.3) % MCV 99.0 H (80.0-97.0) FL MCHC 31.3 L (32.0-37.0) g/dL RDW 23.2 H (11.5-14.5) % Neutrophils # (Manual) 32.88 H (1.80-7.70) X 10*3/uL Monocytes # (Manual) 0 L (0.20-1.00) X 10*3/uL Eosinophils # (Manual) 0 L (0.04-0.35) X 10*3/uL NRBC/100 WBC Diff 3.33 H (0.00-0.01) X 10*3/uL Toxic Vacuolation 2+ A Polychromasia 2+ A Anisocytosis (manual) 2+ A Acanthocytes (Spur) 2+ A Schistocytes 1+ A PT 44.7 H (10.0-12.5) sec INR 4.6 H (<1.2) Anion Gap 14.40 H (4.00-12.00) mmol/L BUN 50.1 H (9.0-27.0) mg/dL Creatinine 2.7 H (0.6-1.5) mg/dL Est GFR (CKD-EPI) 19 L (>=60) Glucose 162 H (70-110) mg/dL Calcium 8.1 L (8.7-10.3) mg/dL Total Protein 4.3 L (6.2-8.2) g/dL Albumin 2.8 L (3.8-4.9) g/dL Globulin 1.5 L (1.6-3.3) g/dL Assessment and Plan Assessment: Acute hypoxemic respiratory failure secondary to an acute exacerbation of chronic obstructive pulmonary disease, acute systolic congestive heart failure Status post exploratory laparotomy, sigmoid colectomy, and end sigmoid colostomy for ruptured sigmoid diverticulum on September 23, 2023. Cultures positive for bacteroids. Enterococcus faecium VRE, Enterococcus faecalis VRE, Cha. Currently on daptomycin and Zosyn Acute kidney injury secondary to ANCA vasculitis and cardiorenal syndrome previously on hemodialysis. Permacath still in place and restarted on hemodialysis 09/28/2023 Leukocytosis Anemia requiring a second unit of packed red blood cells this admission. Current hemoglobin 6.0 Severe cardiomyopathy with an ejection fraction of 25-30 % History of chronic obstructive pulmonary disease Chronic tobacco dependence ANCA vasculitis and was to have had a kidney biopsy in June 2023 unclear if t his was done History of PE/DVT, on warfarin, INR 3.6 Plan: The patient was seen and evaluated Labs and medications reviewed Receiving a second unit of blood today Receiving hemodialysis today Titrate down the FiO2 as tolerated Continue the current treatment plan Plan is for [facility] at discharge I have personally seen and examined the patient, performed the documentation and the assessment and plan as written. Number of minutes spent on the visit: 10.
[2023-10-04] MEDS: PHYTONADIONE 5 MG in SODIUM CHLORIDE 0.9% 50 ML IVPB STA (13:58)
[2023-10-04 14:13] LABS: C-ANCA <1:20 Titer (<1:20)
--- NOTE | 2023-10-04 14:25 | P.PN ---
Subjective patient is seen for follow-up for acute kidney injury. History of hemodialysis dependent acute kidney injury with recovery of renal function and patient has been off of dialysis for about 3 weeks now. Restarted on dialysis this admission due to severe volume overload and worsening renal function. UF of about 8 L over the last 4 days Oxygen requirement decreased but patient remains quite debilitated. There are plans for discharge to subacute rehab. Patient is seen on hemodialysis. BP has been on the lower side, UF goal has been decreased to about 1 L. Objective - Vital Signs Vital signs: Vital Signs Temp 97.3 F L 10/04/23 14:08 Pulse 78 10/04/23 14:08 Resp 22 10/04/23 08:54 BP 134/81 10/04/23 14:08 Pulse Ox 98 10/04/23 14:08 FiO2 35 09/21/23 20:21 Intake & Output 10/03/23 10/04/23 10/04/23 18:59 06:59 18:59 Output Total 200 580 Balance -200 -580 Weight 57.3 kg Output: Drainage 30 SILVIO Abdomen 30 Urine 200 350 Straight 50 Stool 200 Other: Voiding Method External Catheter External Catheter # Voids 1 - Exam patient is awake, comfortable, mild respiratory distress. Examination of the heart S1 and S2 Examination of the lungs bilateral breath sounds are heard Abdomen is soft ,mild tenderness Examination of lower extremities shows no edema TOUR COUNSELOR exam grossly intact - Labs CBC & Chem 7: 10/04/23 05:24 10/04/23 05:24 Labs: Abnormal Lab Results - Last 24 Hours (Table) 10/04/23 10/04/23 10/04/23 Range/Units 05:24 05:24 05:24 WBC 34.61 H (4.50-10.00) X 10*3/uL RBC 1.94 L (4.10-5.20) X 10*6/uL Hgb 6.0 A* (12.0-15.0) g/dL Hct 19.2 A* (37.2-46.3) % MCV 99.0 H (80.0-97.0) FL MCHC 31.3 L (32.0-37.0) g/dL RDW 23.2 H (11.5-14.5) % Neutrophils # (Manual) 32.88 H (1.80-7.70) X 10*3/uL Monocytes # (Manual) 0 L (0.20-1.00) X 10*3/uL Eosinophils # (Manual) 0 L (0.04-0.35) X 10*3/uL NRBC/100 WBC Diff 3.33 H (0.00-0.01) X 10*3/uL Toxic Vacuolation 2+ A Polychromasia 2+ A Anisocytosis (manual) 2+ A Acanthocytes (Spur) 2+ A Schistocytes 1+ A PT 44.7 H (10.0-12.5) sec INR 4.6 H (<1.2) Anion Gap 14.40 H (4.00-12.00) mmol/L BUN 50.1 H (9.0-27.0) mg/dL Creatinine 2.7 H (0.6-1.5) mg/dL Est GFR (CKD-EPI) 19 L (>=60) Glucose 162 H (70-110) mg/dL Calcium 8.1 L (8.7-10.3) mg/dL Total Protein 4.3 L (6.2-8.2) g/dL Albumin 2.8 L (3.8-4.9) g/dL Globulin 1.5 L (1.6-3.3) g/dL Crossmatch 10/04/23 Range/Units 12:40 WBC (4.50-10.00) X 10*3/uL RBC (4.10-5.20) X 10*6/uL Hgb (12.0-15.0) g/dL Hct (37.2-46.3) % MCV (80.0-97.0) FL MCHC (32.0-37.0) g/dL RDW (11.5-14.5) % Neutrophils # (Manual) (1.80-7.70) X 10*3/uL Monocytes # (Manual) (0.20-1.00) X 10*3/uL Eosinophils # (Manual) (0.04-0.35) X 10*3/uL NRBC/100 WBC Diff (0.00-0.01) X 10*3/uL Toxic Vacuolation Polychromasia Anisocytosis (manual) Acanthocytes (Spur) Schistocytes PT (10.0-12.5) sec INR (<1.2) Anion Gap (4.00-12.00) mmol/L BUN (9.0-27.0) mg/dL Creatinine (0.6-1.5) mg/dL Est GFR (CKD-EPI) (>=60) Glucose (70-110) mg/dL Calcium (8.7-10.3) mg/dL Total Protein (6.2-8.2) g/dL Albumin (3.8-4.9) g/dL Globulin (1.6-3.3) g/dL Crossmatch See Detail Assessment and Plan Assessment: 1. 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 Also component of cardiorenal syndrome. Renal function slowly worsening this admission. Creatinine was 1.9 dated September 07, 2023. Patient was hemodialysis dependent but was recently taken off hemodialysis. Ultrasound from June 2023 showed no evidence of hydronephrosis. Restarted hemodialysis on 09/28/2023 due to worsening renal function and volume overload. 2. ANCA vasculitis maintained on prednisone. Status post 2 doses of IV rituximab 1 g completed August 2023. Maintained on 30 mg of prednisone outpatient. 3. Acute on chronic systolic CHF ejection fraction of 25 to 30% with severe pulmonary hypertension and moderate tricuspid regurgitation. 4. Acute hypoxic respiratory failure secondary to COPD exacerbation as well as CHF. Some improvement in chest x-ray noted with ultrafiltration with hemodialysis. 5. History of PE maintained on anticoagulation. 6. Anemia. high ferritin noted. packed RBCs transfusion today 7. Pneumoperitoneum status post diagnostic laparoscopy, sigmoid colectomy with end colostomy 09/23/2023. 8. Volume overload, improving. Status post UF close to 8 L over the last 4 days. Plan: extremities transfusion of packed RBCs increase Aranesp dose continue with Lasix. repeat serologies pending. Continue IV steroids
[2023-10-04] MEDS: DAPTOmycin 350 MG in SODIUM CHLORIDE 0.9% 50 ML IVPB SCH (14:42)
[2023-10-04] MEDS: DARBEPOETIN ALFA 60 MCG/0.3 ML SYRINGE SQ SCH (15:34)
--- NOTE | 2023-10-04 17:18 | P.PN ---
Subjective Progress Note Date: 10/04/23 This is a 63-year-old female patient of Dr. Daniels who presented to the ER with concerns of increased shortness of breath. Patient was recently admitted at [facility] last week for similar symptoms but did leave AMA prior to completion of treatment. Patient was alsopatient was also recently admitted recently admitted and transferred to [facility] and transferred to [facility] due to diagnosis of vasculitis and required hemodialysis during the hospital stay patient also had episode of pulmonary embolism in which she was started on Coumadin. Patient recently had hemodialysis catheter DC'd.. Additional medical history includes COPD and ex-smoker. Chest x-ray completed in ER showing COPD with superimposed interstitial opacities possible interstitial pulmonary edema versus atypicalCOPD with superimposed interstitial bases possible interstitial pulmonary edema versus atypical pneumonitis. Lab work revealing BNP level 60,000.. [id number] 0.205, 0.403 and 0.521. Creatinine 1.56 bun 47. White blood cell 27.9 hemoglobin 10.5 . Patient was started on Zithromax and Rocephin. Given dose of IV Lasix. Started on heparin drip for elevated troponins. Cardiology pulmonary and nephrology services consulted. Cardiology pulmonary and nephrology service is consulted. Current vital signs Temp 97.3, heart rate 95, respiratory rate 18, blood pressure 143/88 with a pulse ox of 96% on 2 L. On 09/23/2023 patient was seen and examined on the medical floor she is alert and oriented x 3 in no apparent distress, she started complaining of severe abdominal pain in the bilateral lower quadrants this morning, otherwise she denies any complaints there is no fever or chills no headache or dizziness no chest pain no shortness of breath no cough no nausea or vomiting no diarrhea no blood in the stools no burning with urination no frequency or urgency and no hematuria, CT scan of the abdomen and pelvis without contrast was ordered, will follow closely On 09/24/2023 Patient's alert and oriented 3. Patient is status post diagnostic laparoscopy sigmoid colectomy with end colostomy secondary to perforated sigmoid diverticulitis. Patient is currently postop day 1. Patient was transferred to the intensive care unit postoperatively but has been extubated to 2 L. Patient remains on IV Zosyn. Vertical care, nephrology, surgical, infectious disease service is following. Patient denies chest pain or shortness breath. Patient denies nausea vomiting or diarrhea. Burning or frequency On 09/25/2023 patient was seen and examined on the medical floor, she is alert and oriented x 3 in no apparent distress, there is no fever or chills no headache or dizziness no chest pain no shortness of breath no cough no nausea or vomiting no abdominal pain no diarrhea and no urinary symptoms, patient was noticed by her nurse to have an equal pupils, patient denies any previous knowl edge of abnormal pupil size, CT scan of the brain and neurology consultation will be initiated, hemoglobin today is down to 6.7 and patient will be given 1 unit of red blood cells. On 09/26/2023 patient is alert and oriented x 3. Patient has been tolerating full liquid diet. Patient el on IV Zosyn. Neurology services are following. Current vital signs Temp 98.2, rate 85, respiratory rate 15, blood pressure 151/89 with a pulse ox of 95% on 2 L. Patient denies chest pain or shortness of breath. Patient denies nausea vomiting or diarrhea. Patient denies any urinary burning or frequency. On 09/27/2023 patient was seen and examined on the medical floor, she is alert and oriented x 3 in no distress she denies any symptoms at this time there is no fever or chills, no headache or dizziness no chest pain no shortness of breath no cough no nausea or vomiting no abdominal pain no diarrhea no urinary symptoms On 09/28/2023 patient was seen and examined on the medical floor she is alert and oriented in no apparent distress there is no fever or chills no headache or dizziness no chest pain no shortness of breath no cough no nausea or vomiting no abdominal pain no diarrhea no urinary symptoms multiple specialist input reviewed today will follow in a.m. on 09/29/2023atient is alert and oriented 3. Patient underwent hemodialysis yesterday patient remains on IV steroids at [facility] and Zosyn. White blood cell trending down 17.76.current vital signs temp 97.7, heart rate 84, resp iratory rate 17, blood pressure 157/99 with pulse ox 98% on 4 L on 09/29/2024 patient's alert and oriented 3 patientto have hemodialysis today. Creatinine 2.6 bun 46.3.patient remains on Zosyn, Diflucan and daptomycin. Patient also remains on IV Lasix. Patient maintained on full liquid diet per surgical services. This time patient denies chest pain or shortness of breath. Patient denies nausea vomiting or diarrhea. Patient denies any urinary burning or frequency on 10/01/2023 patient is alert and oriented 3. Patient's diet has been advanced per surgical services. Patient denies chest pain or shortness of breath. Patient denies nausea vomiting or diarrhea. Patient denies any urinary burning or frequency.white blood cell increasing to 23. Patient remains on IV Zosyn, daptomycin and Diflucan. Infectious disease services are following.current vital signs temp 97.5, heart rate 75, respiratory rate 18, blood pressure 158/89 with pulse ox 97% on 4 L On 10/02/2023 patient was seen and examined on the medical floor she is alert and oriented x 3 in no apparent distress there is no fever or chills no headache or dizziness no chest pain no shortness of breath no cough no nausea or vomiting no abdominal pain no diarrhea and no urinary symptoms. Currently she is receiving hemodialysis will continue with current management will follow closely On 10/03/2023 patient is alert and oriented x 3. Patient reports she just does not feel too well today. Current current vital signs Temp 97.5, heart rate 79, respiratory rate 17, blood pressure 118/76 with pulse ox of 99% on 3 L. Lab work currently pending. Patient denies chest pain or shortness of breath. Patient denies nausea vomiting or diarrhea. Patient denies any urinary burning or frequency. Patient has been tolerating low fiber diet. On 10/04/2023 patient was seen and examined on the medical floor she is alert and oriented x 3 in no apparent distress she is complaining of generalized fatigue otherwise she denies any complaints there is no fever or chills no headache or dizziness no chest pain no shortness of breath no cough no nausea or vomiting no abdominal pain no diarrhea no urinary symptoms, hemoglobin today is down to 6.0, 1 unit of red blood cell transfusion was ordered, patient is followed by nephrology and is scheduled for hemodialysis today. Objective - Vital Signs Vital signs: Vital Signs Temp 97.1 F L 10/04/23 07:37 Pulse 81 10/04/23 08:54 Resp 22 10/04/23 08:54 BP 133/75 10/04/23 07:37 Pulse Ox 93 L 10/04/23 07:37 FiO2 35 09/21/23 20:21 Intake & Output 10/03/23 10/04/23 10/04/23 18:59 06:59 18:59 Output Total 200 580 Balance -200 -580 Weight 57.3 kg Output: Drainage 30 SILVIO Abdomen 30 Urine 200 350 Straight 50 Stool 200 Other: Voiding Method External Catheter External Catheter # Voids 1 - Exam Physical examHead normocephalic Neck supple Lungs diminished bilaterally Heart regular rate and rhythm S1-S2, no rub or gallop Abdomen is soft with mild diffuse tenderness especially in the pelvic area bilaterally no organomegaly no palpable masses Extremities no edema Neuro alert and orientated to 3 - Labs CBC & Chem 7: 10/04/23 05:24 10/04/23 05:24 Labs: Abnormal Lab Results - Last 24 Hours (Table) 10/03/23 10/04/23 10/04/23 Range/Units 11:06 05:24 05:24 WBC 30.0 H 34.61 H (3.8-10.6) k/uL RBC 1.94 L (4.10-5.20) X 10*6/uL Hgb 6.0 A* (12.0-15.0) g/dL Hct 19.2 A* (37.2-46.3) % MCV 99.0 H (80.0-97.0) FL MCHC 31.3 L (32.0-37.0) g/dL RDW 23.2 H (11.5-14.5) % Neutrophils # (Manual) 29.10 H 32.88 H (1.3-7.7) k/uL Lymphocytes # (Manual) 0.60 L (1.0-4.8) k/uL Monocytes # (Manual) 0 L (0.20-1.00) X 10*3/uL Eosinophils # (Manual) 0 L (0.04-0.35) X 10*3/uL Nucleated RBCs 8 H (0-0) /100 WBC NRBC/100 WBC Diff 3.33 H (0.00-0.01) X 10*3/uL Toxic Vacuolation 2+ A Polychromasia 2+ A Anisocytosis (manual) 2+ A Acanthocytes (Spur) 2+ A Schistocytes 1+ A PT (10.0-12.5) sec INR (<1.2) Anion Gap 14.40 H (4.00-12.00) mmol/L BUN 50.1 H (9.0-27.0) mg/dL Creatinine 2.7 H (0.6-1.5) mg/dL Est GFR (CKD-EPI) 19 L (>=60) Glucose 162 H (70-110) mg/dL Calcium 8.1 L (8.7-10.3) mg/dL Total Protein 4.3 L (6.2-8.2) g/dL Albumin 2.8 L (3.8-4.9) g/dL Globulin 1.5 L (1.6-3.3) g/dL 10/04/23 Range/Units 05:24 WBC (3.8-10.6) k/uL RBC (4.10-5.20) X 10*6/uL Hgb (12.0-15.0) g/dL Hct (37.2-46.3) % MCV (80.0-97.0) FL MCHC (32.0-37.0) g/dL RDW (11.5-14.5) % Neutrophils # (Manual) (1.3-7.7) k/uL Lymphocytes # (Manual) (1.0-4.8) k/uL Monocytes # (Manual) (0.20-1.00) X 10*3/uL Eosinophils # (Manual) (0.04-0.35) X 10*3/uL Nucleated RBCs (0-0) /100 WBC NRBC/100 WBC Diff (0.00-0.01) X 10*3/uL Toxic Vacuolation Polychromasia Anisocytosis (manual) Acanthocytes (Spur) Schistocytes PT 44.7 H (10.0-12.5) sec INR 4.6 H (<1.2) Anion Gap (4.00-12.00) mmol/L BUN (9.0-27.0) mg/dL Creatinine (0.6-1.5) mg/dL Est GFR (CKD-EPI) (>=60) Glucose (70-110) mg/dL Calcium (8.7-10.3) mg/dL Total Protein (6.2-8.2) g/dL Albumin (3.8-4.9) g/dL Globulin (1.6-3.3) g/dL Assessment and Plan Assessment: Acute hypoxic respiratory failure secondary to acute exacerbation of COPD and acute systolic congestive heart failure Acute exacerbation of COPD. Patient started on IV steroids Acute systolic congestive heart failure Perforated sigmoid diverticulitis status post sigmoid colectomy with end colostomy on 09/23/2023 Elevated troponins, likely related to renal failure, seen by cardiology no intervention recommended at this time Acute on chronic kidney disease Recent diagnosis of vasculitis at [facility] Recent history of PE/DVT maintained on Coumadin History of cardiomyopathy with EF of 15 to 20% History of tobacco abuse recently quit Unequal pupil size. Neurology service is following DVT prophylaxis lovenox. GI prophylaxis Protonix Pulmonary, cardiology and nephrology services consulted Patient started on IV steroids and IV antibiotics patient started back on hemodialysis
[2023-10-04] MEDS ORDERED: WARFARIN 0.5 MG TAB PO ONE (18:00)
[2023-10-05 07:23] LABS: INR 1.1 (<1.2); Prothrombin Time 12.1 sec (10.0-12.5)
[2023-10-05 09:40] LABS: Anisocytosis Moderate; Basophils # (A) 0.1 k/uL (0-0.2); Basophils % (A) 0 %; Eosinophils % (A) 0 %; HCT 21.1 % (34.0-46.0); Hypochromasia Marked; Lymphocytes # (A) 1.7 k/uL (1.0-4.8); Lymphocytes % (A) 5 %; MCH 30.9 pg (25.0-35.0); MCHC 31.7 g/dL (31.0-37.0); MCV 97.5 fL (80.0-100.0); Macrocytosis Moderate; Mean Platelet Volume 8.9; Monocytes # (A) 0.8 k/uL (0-1.0); Monocytes % (A) 2 %; Neutrophils # (A) 32.1 k/uL (1.3-7.7); Neutrophils % (A) 93 %; Platelet Count 192 k/uL (150-450); Poikilocytosis Slight; RBC 2.17 m/uL (3.80-5.40); RDW 23.4 % (11.5-15.5)
[2023-10-05 09:42] LABS: HGB 6.7 gm/dL (11.4-16.0)
--- NOTE | 2023-10-05 10:28 | P.PN ---
Subjective Progress Note Date: 10/05/23 This is a 63-year-old female patient of Dr. Daniels who presented to the ER with concerns of increased shortness of breath. Patient was recently admitted at [facility] last week for similar symptoms but did leave AMA prior to completion of treatment. Patient was alsopatient was also recently admitted recently admitted and transferred to [facility] and transferred to [facility] due to diagnosis of vasculitis and required hemodialysis during the hospital stay patient also had episode of pulmonary embolism in which she was started on Coumadin. Patient recently had hemodialysis catheter DC'd.. Additional medical history includes COPD and ex-smoker. Chest x-ray completed in ER showing COPD with superimposed interstitial opacities possible interstitial pulmonary edema versus atypicalCOPD with superimposed interstitial bases possible interstitial pulmonary edema versus atypical pneumonitis. Lab work revealing BNP level 60,000.. [id number] 0.205, 0.403 and 0.521. Creatinine 1.56 bun 47. White blood cell 27.9 hemoglobin 10.5 . Patient was started on Zithromax and Rocephin. Given dose of IV Lasix. Started on heparin drip for elevated troponins. Cardiology pulmonary and nephrology services consulted. Cardiology pulmonary and nephrology service is consulted. Current vital signs Temp 97.3, heart rate 95, respiratory rate 18, blood pressure 143/88 with a pulse ox of 96% on 2 L. On 09/23/2023 patient was seen and examined on the medical floor she is alert and oriented x 3 in no apparent distress, she started complaining of severe abdominal pain in the bilateral lower quadrants this morning, otherwise she denies any complaints there is no fever or chills no headache or dizziness no chest pain no shortness of breath no cough no nausea or vomiting no diarrhea no blood in the stools no burning with urination no frequency or urgency and no hematuria, CT scan of the abdomen and pelvis without contrast was ordered, will follow closely On 09/24/2023 Patient's alert and oriented 3. Patient is status post diagnostic laparoscopy sigmoid colectomy with end colostomy secondary to perforated sigmoid diverticulitis. Patient is currently postop day 1. Patient was transferred to the intensive care unit postoperatively but has been extubated to 2 L. Patient remains on IV Zosyn. Vertical care, nephrology, surgical, infectious disease service is following. Patient denies chest pain or shortness breath. Patient denies nausea vomiting or diarrhea. Burning or frequency On 09/25/2023 patient was seen and examined on the medical floor, she is alert and oriented x 3 in no apparent distress, there is no fever or chills no headache or dizziness no chest pain no shortness of breath no cough no nausea or vomiting no abdominal pain no diarrhea and no urinary symptoms, patient was noticed by her nurse to have an equal pupils, patient denies any previous knowl edge of abnormal pupil size, CT scan of the brain and neurology consultation will be initiated, hemoglobin today is down to 6.7 and patient will be given 1 unit of red blood cells. On 09/26/2023 patient is alert and oriented x 3. Patient has been tolerating full liquid diet. Patient el on IV Zosyn. Neurology services are following. Current vital signs Temp 98.2, rate 85, respiratory rate 15, blood pressure 151/89 with a pulse ox of 95% on 2 L. Patient denies chest pain or shortness of breath. Patient denies nausea vomiting or diarrhea. Patient denies any urinary burning or frequency. On 09/27/2023 patient was seen and examined on the medical floor, she is alert and oriented x 3 in no distress she denies any symptoms at this time there is no fever or chills, no headache or dizziness no chest pain no shortness of breath no cough no nausea or vomiting no abdominal pain no diarrhea no urinary symptoms On 09/28/2023 patient was seen and examined on the medical floor she is alert and oriented in no apparent distress there is no fever or chills no headache or dizziness no chest pain no shortness of breath no cough no nausea or vomiting no abdominal pain no diarrhea no urinary symptoms multiple specialist input reviewed today will follow in a.m. on 09/29/2023atient is alert and oriented 3. Patient underwent hemodialysis yesterday patient remains on IV steroids at [facility] and Zosyn. White blood cell trending down 17.76.current vital signs temp 97.7, heart rate 84, resp iratory rate 17, blood pressure 157/99 with pulse ox 98% on 4 L on 09/29/2024 patient's alert and oriented 3 patientto have hemodialysis today. Creatinine 2.6 bun 46.3.patient remains on Zosyn, Diflucan and daptomycin. Patient also remains on IV Lasix. Patient maintained on full liquid diet per surgical services. This time patient denies chest pain or shortness of breath. Patient denies nausea vomiting or diarrhea. Patient denies any urinary burning or frequency on 10/01/2023 patient is alert and oriented 3. Patient's diet has been advanced per surgical services. Patient denies chest pain or shortness of breath. Patient denies nausea vomiting or diarrhea. Patient denies any urinary burning or frequency.white blood cell increasing to 23. Patient remains on IV Zosyn, daptomycin and Diflucan. Infectious disease services are following.current vital signs temp 97.5, heart rate 75, respiratory rate 18, blood pressure 158/89 with pulse ox 97% on 4 L On 10/02/2023 patient was seen and examined on the medical floor she is alert and oriented x 3 in no apparent distress there is no fever or chills no headache or dizziness no chest pain no shortness of breath no cough no nausea or vomiting no abdominal pain no diarrhea and no urinary symptoms. Currently she is receiving hemodialysis will continue with current management will follow closely On 10/03/2023 patient is alert and oriented x 3. Patient reports she just does not feel too well today. Current current vital signs Temp 97.5, heart rate 79, respiratory rate 17, blood pressure 118/76 with pulse ox of 99% on 3 L. Lab work currently pending. Patient denies chest pain or shortness of breath. Patient denies nausea vomiting or diarrhea. Patient denies any urinary burning or frequency. Patient has been tolerating low fiber diet. On 10/04/2023 patient was seen and examined on the medical floor she is alert and oriented x 3 in no apparent distress she is complaining of generalized fatigue otherwise she denies any complaints there is no fever or chills no headache or dizziness no chest pain no shortness of breath no cough no nausea or vomiting no abdominal pain no diarrhea no urinary symptoms, hemoglobin today is down to 6.0, 1 unit of red blood cell transfusion was ordered, patient is followed by nephrology and is scheduled for hemodialysis today. On 10/05/19 2patient's alert and oriented 3. Hemoglobin 6.7 and additional unit of PRBCs has been ordered. per surgical services concerns of possible hematoma. Computed tomography scan of abdomen has been ordered.white blood cell also elevated at 34. Infectious disease services are following. Current vital signs temp 91, heart rate 72, respiratory rate 17, blood pressure 137/81 with a pulse ox of 97% on 3 L Objective - Vital Signs Vital signs: Vital Signs Temp 98.1 F 10/05/23 06:51 Pulse 72 10/05/23 07:39 Resp 17 10/05/23 06:51 BP 137/81 10/05/23 06:51 Pulse Ox 97 10/05/23 06:51 FiO2 35 09/21/23 20:21 Intake & Output 10/04/23 10/05/23 10/05/23 18:59 06:59 18:59 Intake Total 687 Output Total 2570 160 Balance -1883 -160 Weight 60 kg Intake: Blood Product 287 Rc Pheresis As-3 Unit 287 [id number] Hemodialysis 400 Output: Drainage 70 35 SILVIO Abdomen 70 35 Urine 50 125 Stool 50 Hemodialysis 1400 Hemodialysis Net Amount 1000 Other: Voiding Method External Catheter - Exam Physical examHead normocephalic Neck supple Lungs diminished bilaterally Heart regular rate and rhythm S1-S2, no rub or gallop Abdomen is soft with mild diffuse tenderness especially in the pelvic area bilaterally no organomegaly no palpable masses Extremities no edema Neuro alert and orientated to 3 - Labs CBC & Chem 7: 10/05/23 09:06 10/04/23 05:24 Labs: Abnormal Lab Results - Last 24 Hours (Table) 10/04/23 10/05/23 Range/Units 12:40 09:06 WBC 34.7 H (3.8-10.6) k/uL RBC 2.17 L (3.80-5.40) m/uL Hgb 6.7 L* (11.4-16.0) gm/dL Hct 21.1 L (34.0-46.0) % RDW 23.4 H (11.5-15.5) % Crossmatch See Detail Assessment and Plan Assessment: Acute hypoxic respiratory failure secondary to acute exacerbation of COPD and acute systolic congestive heart failure Acute exacerbation of COPD. Patient started on IV steroids Acute systolic congestive heart failure Perforated sigmoid diverticulitis status post sigmoid colectomy with end colostomy on 09/23/2023 Elevated troponins, likely related to renal failure, seen by cardiology no intervention recommended at this time Acute on chronic kidney disease Recent diagnosis of vasculitis at [facility] Recent history of PE/DVT maintained on Coumadin History of cardiomyopathy with EF of 15 to 20% History of tobacco abuse recently quit Unequal pupil size. Neurology service is following Concerns for possible hematoma per surgical services patient to receive a third unit of PRBCs computed tomography scan of abdomen ordered DVT prophylaxis lovenox. GI prophylaxis Protonix Pulmonary, cardiology and nephrology services consulted Patient started on IV steroids and IV antibiotics patient started back on hemodialysis
[2023-10-05 11:05] LABS: Metamyelocytes % 1 %; Neutrophils % (M) 94 %; Nucleated Red Blood Cells 19 /100 WBC (0-0); Total Cells Counted 200
[2023-10-05 11:06] LABS: Lymphocytes # (M) 1.17 k/uL (1.0-4.8); Metamyelocytes # (M) 0.29 k/uL (0); Monocytes # (M) 0.29 k/uL (0-1.0); Neutrophils # (M) 27.45 k/uL (1.3-7.7); Polychromasia Present; WBC 29.2 k/uL (3.8-10.6)
[2023-10-05 11:07] LABS: Poikilocytosis (M) Present
--- NOTE | 2023-10-05 13:27 | P.PN ---
Subjective patient is seen for follow-up for acute kidney injury. History of hemodialysis dependent acute kidney injury with recovery of renal function and patient has been off of dialysis for about 3 weeks now. Restarted on dialysis this admission due to severe volume overload and worsening renal function. Oxygen requirement decreased but patient remains quite debilitated. There are plans for discharge to subacute rehab. Hemoglobin is low again today at 6.7. Patient is receiving another unit of packed RBCs. Oozing noted from a skin tear on the left hand Objective - Vital Signs Vital signs: Vital Signs Temp 98.1 F 10/05/23 12:04 Pulse 75 10/05/23 12:04 Resp 18 10/05/23 12:04 BP 131/73 10/05/23 12:04 Pulse Ox 96 10/05/23 12:04 FiO2 35 09/21/23 20:21 Intake & Output 10/04/23 10/05/23 10/05/23 18:59 06:59 18:59 Intake Total 687 0 Output Total 2570 160 Balance -1883 -160 0 Weight 60 kg Intake: Blood Product 287 0 Unit 0 Rc Pheresis As-3 Unit 287 [id number] Hemodialysis 400 Output: Drainage 70 35 SILVIO Abdomen 70 35 Urine 50 125 Stool 50 Hemodialysis 1400 Hemodialysis Net Amount 1000 Other: Voiding Method External Catheter External Catheter - Exam patient is awake, comfortable, mild respiratory distress. Examination of the heart S1 and S2 Examination of the lungs bilateral breath sounds are heard Abdomen is soft ,mild tenderness Examination of lower extremities shows no edema [employer] exam grossly intact - Labs CBC & Chem 7: 10/05/23 09:06 10/04/23 05:24 Labs: Abnormal Lab Results - Last 24 Hours (Table) 09/30/23 10/04/23 10/05/23 Range/Units 12:36 12:40 09:06 WBC 29.2 H (3.8-10.6) k/uL RBC 2.17 L (3.80-5.40) m/uL Hgb 6.7 L* (11.4-16.0) gm/dL Hct 21.1 L (34.0-46.0) % RDW 23.4 H (11.5-15.5) % Neutrophils # 32.1 H (1.3-7.7) k/uL Neutrophils # (Manual) 27.45 H (1.3-7.7) k/uL Metamyelocytes # (Man) 0.29 H (0) k/uL Nucleated RBCs 19 H (0-0) /100 WBC Vitamin B6 <2 L (5-50) ug/L Crossmatch See Detail Assessment and Plan Assessment: 1. 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 Also component of cardiorenal syndrome. Renal function slowly worsening this admission. Creatinine was 1.9 dated September 07, 2023. Patient was hemodialysis dependent but was recently taken off hemodialysis. Ultrasound from June 2023 showed no evidence of hydronephrosis. Restarted hemodialysis on 09/28/2023 due to worsening renal function and volume overload. 2. ANCA vasculitis maintained on prednisone. Status post 2 doses of IV rituximab 1 g completed August 2023. Maintained on 30 mg of prednisone ou tpatient. Repeat serologies are negative. 3. Acute on chronic systolic CHF ejection fraction of 25 to 30% with severe pulmonary hypertension and moderate tricuspid regurgitation. 4. Acute hypoxic respiratory failure secondary to COPD exacerbation as well as CHF. Some improvement in chest x-ray noted with ultrafiltration with hemodialysis. 5. History of PE maintained on anticoagulation. 6. Anemia. high ferritin noted. packed RBCs transfusion today. 7. Pneumoperitoneum status post diagnostic laparoscopy, sigmoid colectomy with end colostomy 09/23/2023. 8. Volume overload, improving. Status post UF close to 8 L over the last 4 days. Plan: DDAVP 1 increased Aranesp dose continue with Lasix. repeat serologies are negative Continue IV steroids. Hemodialysis in a.m.
--- NOTE | 2023-10-05 13:46 | P.PN ---
Subjective Progress Note Date: 10/05/23 This is a 63-year-old female patient with a known history of chronic obstructive pulmonary disease, former smoker, previous acute kidney injury requiring dialysis that she completed approximately 2 weeks ago. She presented here to the emergency room today with increasing shortness of breath. Symptoms started just this morning. No fever or chills. No cough or congestion. Mainly dyspnea on minimal exertion. Chest x-ray reveals evidence of COPD with superimposed interstitial opacities, possible pulmonary edema versus atypical pneumonia. White count 27.9. Hemoglobin 10.5. Platelets 294. INR 1.3. Sodium 136. Potassium 4.3. Bicarb 30. BUN 47. Creatinine 1.56. Glucose 196. Troponin 0.205. proBNP 60,000. The patient is seen in consultation in the emergency department. She is currently sitting up on the stretcher. Awake and alert. On BiPAP 14/5 and 40% FiO2 to maintain O2 saturations in the 90s. Been initiated on a heparin drip. Initiated on antibiotics, bronchodilators and steroids. The patient is seen today September 22, 2023 in follow-up in the emergency department. She is awake and alert in no acute distress. Breathing easier today compared to yesterday. She is maintaining good O2 saturations in the 90s on 2 L/min per nasal cannula. She has been off the BiPAP. She remains on a heparin drip. Peak troponin 0.521. She is continued on DuoNeb inhalations, Symbicort, Solu-Medrol. She is continued on ceftriaxone. Chest x-ray shows diffuse interstitial opacities with slight improvement. The patient is seen today September 27, 2023 in follow-up on the regular medical [facility] or. She is currently sitting up in a chair. Awake and alert in no acute distress. She is still receiving oxygen at 6 L/min per nasal cannula. Lactated Ringer's at 75 MLS per hour. She did have an episode of shortness of breath and anxiety last evening. She states she is feeling better today. X-ray reveals evidence of fluid volume overload. No focal consolidation, pneumothorax or pleural effusion. Right internal jugular catheter in place. She is status post 1 unit of packed red blood cells and 2 units of fresh frozen plasma this admission. Abdominal fluid cultures were positive for bacteroids. Wound culture positive for Enterococcus faecium VRE, Enterococcus faecalis VRE and Cha. White count 20.1. Hemoglobin 8.7. Platelets 227. Sodium 135. Potassium 5.8. Bicarb 23. BUN 63. Creatinine 2.46. Glucose 124. She is continued on DuoNeb inhalations, Symbicort, daptomycin and Zosyn. Lovenox for DVT prophylaxis. The patient is seen today September 28, 2023 in follow-up on the regular medical floor. She is currently resting in bed. Awake and alert in no acute distress. Feeling better today compared to yesterday. She is maintaining good O2 saturations in the 90s on 4 L/min per nasal cannula. No IV fluids. She is continued on daptomycin and Zosyn. Chest x-ray reveals right pleural effusion with pulmonary vascular congestion. Left lung is relatively clear. She remains on DuoNeb ventilations, Pulmicort and Perforomist inhalations, Solu-Medrol. Lovenox for DVT prophylaxis. Sodium 131. Potassium 5.1. Bicarb 23. BUN 69. Creatinine 2.68. Glucose 146. She was given Lasix 60 mg IVP x 1. She is currently in a -1.5 L balance. The patient is seen today September 29, 2023 in follow-up on the regular medical floor. She is currently sitting up in bed. Awake and alert in no acute distress. Maintaining good O2 saturations in the 90s on 4 L/min per nasal neida sorin. She is status post 1 unit of packed red blood cells and 2 units of platelets fresh frozen plasma this admission. Abdominal fluid and wound cultures were positive for Enterococcus faecium VRE, Enterococcus faecalis VRE, Cha. White count 17.7. Hemoglobin 7.9. Platelets 233. Sodium 136. Potassium 3.5. Bicarb 27. BUN 33. Creatinine 2.0. Glucose 152. She remains on DuoNeb inhalations, Pulmicort and Perforomist inhalations, Solu-Medrol. Antibiotics in the form of daptomycin and Zosyn. The patient is seen today September 30, 2023 in follow-up on the regular medical floor. She is resting comfortably in bed. Maintaining good O2 saturations in the 90s on 5 L/min per nasal cannula. She is status post 1 unit of packed red blood cells and 2 fresh frozen plasma this admission. Abdominal cultures were positive for Enterococcus faecium and Enterococcus faecalis both VRE. White cou nt 19.6. Hemoglobin 7.5. Platelets 225. INR 1.4. Sodium 137. Potassium 3.8. Bicarb 24. BUN 46. Creatinine 2.6. Glucose 160. She is continued on DuoNeb inhalations, Symbicort, Solu-Medrol. Antibiotics in the form of Zosyn and daptomycin. Lovenox for DVT prophylaxis. Currently on Lasix 60 mg IV every 12 hours. Currently in a -5.9 L balance. The patient is seen today October 01, 2023 in follow-up on the regular medical floor. She is sitting up in bed. Awake and alert in no acute distress. Feeling stronger each day. She is maintaining O2 saturations in the 90s on 4 L/min per nasal cannula. She has been resumed on hemodialysis. She remains on Zosyn and daptomycin. Abdominal cultures were positive for Enterococcus faecium and Enterococcus faecalis both VRE. She remains on DuoNeb inhalations, Symbicort, Solu-Medrol. Remains on Lovenox. White count 23.7. Hemoglobin 8.2. Platelets 238. INR 1.64. Sodium 136. Potassium 4.3. Bicarb 26. BUN 27. Creatinine 1.9. Glucose 140. The patient is seen today October 02, 2023 in follow-up on the regular medical floor. She is sitting up at the bedside. Awake and alert in no acute distress. She has had some issues with dizziness while up. She did receive hemodialysis yesterday with 1.9 L removed. The plan is for hemodialysis again today. She is maintaining good O2 saturations in the 90s on 3.5 L/min per nasal cannula. Normal saline at KVO. She is continued on DuoNeb inhalations, Symbicort, Solu- Medrol. Lovenox for anticoagulation. She remains on daptomycin and Zosyn. Anticoagulated with warfarin. INR 2.0. She remains on Lasix 60 mg every 12 hours. Currently in a -5 L balance. The patient is seen today October 03, 2023 in follow-up on the regular medical floor. She is sitting up at the bedside. Awake and alert in no acute distress. Feeling stronger each day. She maintains a good O2 saturations in the 90s on 3 L/min per nasal cannula. No IV fluids. Chest x-ray continues to small small atelectasis/effusions. Stable. She remains on DuoNeb inhalations, Symbicort, Solu-Medrol. Antibiotics in the form of Zosyn. She remains on Lasix 60 mg IV every 12 hours. Currently in a -5 L balance. Plan is for hemodialysis on Wednesday, October 04, 2023. The patient is seen today October 04, 2023 in follow-up on the regular medical floor. She is awake and alert in no acute distress. Sitting up in bed. Curre ntly receiving hemodialysis. She is maintaining O2 saturations in the 90s 3 L/min per nasal cannula. She has been afebrile. Hemodynamically stable. Her hemoglobin this morning was 6.0. She is to receive a second unit of packed red blood cells. White count 34.6. Platelets 191. INR 4.6. Sodium 135. Potassium 5.0. Bicarb 24. BUN 50. Creatinine 2.7. Abdominal wound cultures were positive for Enterococcus faecium VRE. She remains on DuoNeb inhalations, Symbicort, Solu-Medrol. Antibiotics in the form of daptomycin and Zosyn. The patient is seen today October 05, 2023 in follow-up on the regular medical floor. She is currently resting comfortably in bed. Awake and alert in no acute distress. She is maintaining O2 saturations in the 90s on 3 L/min per nasal cannula. She is receiving a 3rd unit of packed red blood cells today for hemoglobin of 6.7. Platelets 192. White count 29.2. INR 1.1. Abdominal wound cultures were positive for Enterococcus faecium VRE. She remains on DuoNeb inhalations, Symbicort, Solu-Medrol. Antibiotics in the form of daptomycin and Zosyn. She remains on Lasix 60 mg IV every 12 hours. Currently in a -2 L balance. Objective - Vital Signs Vital signs: Vital Signs Temp 98.1 F 10/05/23 12:04 Pulse 75 10/05/23 12:04 Resp 18 10/05/23 12:04 BP 131/73 10/05/23 12:04 Pulse Ox 96 10/05/23 12:04 FiO2 35 09/21/23 20:21 Intake & Output 10/04/23 10/05/23 10/05/23 18:59 06:59 18:59 Intake Total 687 0 Output Total 2570 160 Balance -1883 -160 0 Weight 60 kg Intake: Blood Product 287 0 Unit 0 Rc Pheresis As-3 Unit 287 [id number] Hemodialysis 400 Output: Drainage 70 35 SILVIO Abdomen 70 35 Urine 50 125 Stool 50 Hemodialysis 1400 Hemodialysis Net Amount 1000 Other: Voiding Method External Catheter External Catheter - Exam GENERAL EXAM: Alert, 63-year-old female, on 3 L/min per nasal cannula, in no apparent distress. HEAD: Normocephalic. EYES: Normal reaction of pupils, equal size. NOSE: Clear with pink turbinates. THROAT: No erythema or exudates. NECK: No masses, no JVD. CHEST: No chest wall deformity. LUNGS: Equal air entry with bibasilar crackles, diminished. CVS: S1 and S2 normal with no audible murmur, regular rhythm. ABDOMEN: Colostomy with stool present. Dressing intact. SPINE: No scoliosis or deformity SKIN: No rashes. Skin tear noted on left hand CENTRAL NERVOUS SYSTEM: No focal deficits, tone is normal in all 4 extremities. EXTREMITIES: There is 1+ peripheral edema. No clubbing, no cyanosis. Peripheral pulses are intact. - Labs CBC & Chem 7: 10/05/23 09:06 10/04/23 05:24 Labs: Abnormal Lab Results - Last 24 Hours (Table) 09/30/23 10/04/23 10/05/23 Range/Units 12:36 12:40 09:06 WBC 29.2 H (3.8-10.6) k/uL RBC 2.17 L (3.80-5.40) m/uL Hgb 6.7 L* (11.4-16.0) gm/dL Hct 21.1 L (34.0-46.0) % RDW 23.4 H (11.5-15.5) % Neutrophils # 32.1 H (1.3-7.7) k/uL Neutrophils # (Manual) 27.45 H (1.3-7.7) k/uL Metamyelocytes # (Man) 0.29 H (0) k/uL Nucleated RBCs 19 H (0-0) /100 WBC Vitamin B6 <2 L (5-50) ug/L Crossmatch See Detail Assessment and Plan Assessment: Acute hypoxemic respiratory failure secondary to an acute exacerbation of chronic obstructive pulmonary disease, acute systolic congestive heart failure Status post exploratory laparotomy, sigmoid colectomy, and end sigmoid colostomy for ruptured sigmoid diverticulum on September 23, 2023. Cultures positive for Enterococcus faecium VRE, Enterococcus faecalis VRE, Cha. Currently on daptomycin and Zosyn Acute kidney injury secondary to ANCA vasculitis and cardiorenal syndrome previously on hemodialysis. Permacath still in place and restarted on hemodialysis 09/28/2023 Leukocytosis Anemia requiring a third unit of packed red blood cells this admission. Current hemoglobin 6.7 Severe cardiomyopathy with an ejection fraction of 25-30 % History of chronic obstructive pulmonary disease Chronic tobacco dependence ANCA vasculitis and was to have had a kidney biopsy in June 2023 unclear if this was done History of PE/DVT, on warfarin Plan: The patient was seen and evaluated Labs and medications reviewed Receiving a third unit of blood today Titrate down the FiO2 as tolerated Continue the current treatment plan I have personally seen and examined the patient, performed the documentation and the assessment and plan as written. Number of minutes spent on the visit: 10.
--- NOTE | 2023-10-05 14:14 | P.PN ---
Subjective Progress Note Date: 10/04/23 Principal diagnosis: Reason for follow-up is perforated diverticulitis Patient is a 63-year-old female past medical history significant for COPD vasculitis history of acute kidney injury secondary to ANCA vasculitis presenting to the hospital with shortness of breath and abdominal pain has been diagnosed with a perforated sigmoid diverticulitis in this patient who is status post diagnostic laparoscopic sigmoid colectomy with end colostomy. On today's evaluation that is 10/04/2023, the patient continues to be afebrile, the patient is on room air and breathing comfortably, the Pt denies having any chest pain or cough, the patient lower abdominal pain has decreased in intensity denies any nausea vomiting did help with her colostomy. Patient white count is up to 34.61 hemoglobin is dropped to 6.0 creatinine is 2.7 Objective - Vital Signs Vital signs: Vital Signs Temp 97.1 F L 10/04/23 07:37 Pulse 81 10/04/23 08:54 Resp 22 10/04/23 08:54 BP 133/75 10/04/23 07:37 Pulse Ox 93 L 10/04/23 07:37 FiO2 35 09/21/23 20:21 Intake & Output 10/03/23 10/04/23 10/04/23 18:59 06:59 18:59 Output Total 200 580 Balance -200 -580 Weight 57.3 kg Output: Drainage 30 SILVIO Abdomen 30 Urine 200 350 Straight 50 Stool 200 Other: Voiding Method External Catheter External Catheter # Voids 1 - Exam GENERAL DESCRIPTION: Middle-aged female lying in bed in no distress RESPIRATORY SYSTEM: Unlabored breathing , decreased breath sounds at bases HEART: S1 S2 regular rate and rhythm , ABDOMEN: Soft , patient did have some bruising around her incision no drainage was noticed EXTREMITIES: No edema feet - Labs CBC & Chem 7: 10/05/23 09:06 10/04/23 05:24 Labs: Abnormal Lab Results - Last 24 Hours (Table) 10/03/23 10/03/23 10/04/23 Range/Units 11:06 11:06 05:24 WBC 30.0 H 34.61 H (3.8-10.6) k/uL RBC 2.10 L 1.94 L (3.80-5.40) m/uL Hgb 7.0 L D 6.0 A* (11.4-16.0) gm/dL Hct 20.2 L 19.2 A* (34.0-46.0) % MCV 99.0 H (80.0-97.0) FL MCHC 31.3 L (32.0-37.0) g/dL RDW 22.1 H 23.2 H (11.5-15.5) % Neutrophils # (Manual) 29.10 H 32.88 H (1.3-7.7) k/uL Lymphocytes # (Manual) 0.60 L (1.0-4.8) k/uL Monocytes # (Manual) 0 L (0.20-1.00) X 10*3/uL Eosinophils # (Manual) 0 L (0.04-0.35) X 10*3/uL Nucleated RBCs 8 H (0-0) /100 WBC NRBC/100 WBC Diff 3.33 H (0.00-0.01) X 10*3/uL Toxic Vacuolation 2+ A Polychromasia 2+ A Anisocytosis (manual) 2+ A Acanthocytes (Spur) 2+ A Schistocytes 1+ A PT (10.0-12.5) sec INR (<1.2) Sodium 130 L (137-145) mmol/L Anion Gap (4.00-12.00) mmol/L BUN 39 H (7-17) mg/dL Creatinine 1.81 H (0.52-1.04) mg/dL Est GFR (CKD-EPI) (>=60) Glucose 142 H (74-99) mg/dL Calcium 8.2 L (8.4-10.2) mg/dL Total Protein 4.2 L (6.3-8.2) g/dL Albumin 2.4 L (3.5-5.0) g/dL Globulin (1.6-3.3) g/dL 10/04/23 10/04/23 Range/Units 05:24 05:24 WBC (3.8-10.6) k/uL RBC (3.80-5.40) m/uL Hgb (11.4-16.0) gm/dL Hct (34.0-46.0) % MCV (80.0-97.0) FL MCHC (32.0-37.0) g/dL RDW (11.5-15.5) % Neutrophils # (Manual) (1.3-7.7) k/uL Lymphocytes # (Manual) (1.0-4.8) k/uL Monocytes # (Manual) (0.20-1.00) X 10*3/uL Eosinophils # (Manual) (0.04-0.35) X 10*3/uL Nucleated RBCs (0-0) /100 WBC NRBC/100 WBC Diff (0.00-0.01) X 10*3/uL Toxic Vacuolation Polychromasia Anisocytosis (manual) Acanthocytes (Spur) Schistocytes PT 44.7 H (10.0-12.5) sec INR 4.6 H (<1.2) Sodium (137-145) mmol/L Anion Gap 14.40 H (4.00-12.00) mmol/L BUN 50.1 H (7-17) mg/dL Creatinine 2.7 H (0.52-1.04) mg/dL Est GFR (CKD-EPI) 19 L (>=60) Glucose 162 H (74-99) mg/dL Calcium 8.1 L (8.4-10.2) mg/dL Total Protein 4.3 L (6.3-8.2) g/dL Albumin 2.8 L (3.5-5.0) g/dL Globulin 1.5 L (1.6-3.3) g/dL Assessment and Plan (1) Perforation of sigmoid colon due to diverticulitis Current Visit: Yes Status: Acute Code(s): K57.20 - DVTRCLI OF LG INT W PERFORATION AND ABSCESS W/O BLEEDING SNOMED Code(s): 1996706528437255 (2) Peritonitis Current Visit: Yes Status: Acute Code(s): K65.9 - PERITONITIS, UNSPECIFIED SNOMED Code(s): 82159046 (3) Leukocytosis Current Visit: No Status: Acute Code(s): D72.829 - ELEVATED WHITE BLOOD CELL COUNT, UNSPECIFIED SNOMED Code(s): 677467364 (4) Sepsis Current Visit: Yes Status: Acute Code(s): A41.9 - SEPSIS, UNSPECIFIED ORGANISM SNOMED Code(s): 47202053 Plan: 1patient presented to the hospital with sepsis in this patient who did have a fever tachycardia meeting criteria for SIRS source is likely perforated diverticulitis with peritonitis and need to cover for the enteric gram-negative both aerobes and anaerobes patient also have complaint of increasing shortness of breath and cough CT shows bilateral lower lobe consolidation, possible pneumonia 2-patient is status post diagnostic laparoscopy sigmoid resection and end colostomy abdominal culture currently growing Enterococcus faecium and faecalis and Cha 3-patient is afebrile , further worsening the white count more likely due to Solu-Medrol, however the patient also have drop in her hemoglobin questionably intra-abdominal hematoma versus radiology discussed with the surgical team patient benefit from CT abdominal pelvis 4-patient is currently covered with with Zosyn, daptomycin and Diflucan while inpatient, and monitor clinical course closely Dictation was produced using [employer] dictation software. please excuse any grammatical, word or spelling errors. Time with Patient: Less than 30
--- NOTE | 2023-10-05 14:15 | P.PN ---
Subjective Progress Note Date: 10/05/23 Principal diagnosis: Reason for follow-up is perforated diverticulitis Patient is a 63-year-old female past medical history significant for COPD vasculitis history of acute kidney injury secondary to ANCA vasculitis presenting to the hospital with shortness of breath and abdominal pain has been diagnosed with a perforated sigmoid diverticulitis in this patient who is status post diagnostic laparoscopic sigmoid colectomy with end colostomy. On today's evaluation that is 10/05/2023, Patient is afebrile patient is currently on room air and denies having any shortness of breath, the patient denies any chest pain or cough, the patient denies any nausea vomiting did not have any abdominal pain and did have output in her colostomy. Patient white count is down to 29.2, hemoglobin is up to 6.7 Objective - Vital Signs Vital signs: Vital Signs Temp 98.9 F 10/05/23 11:34 Pulse 81 10/05/23 11:34 Resp 18 10/05/23 11:34 BP 147/75 10/05/23 11:34 Pulse Ox 98 10/05/23 11:34 FiO2 35 09/21/23 20:21 Intake & Output 10/04/23 10/05/23 10/05/23 18:59 06:59 18:59 Intake Total 687 0 Output Total 2570 160 Balance -1883 -160 0 Weight 60 kg Intake: Blood Product 287 0 Unit 0 Rc Pheresis As-3 Unit 287 [id number] Hemodialysis 400 Output: Drainage 70 35 SILVIO Abdomen 70 35 Urine 50 125 Stool 50 Hemodialysis 1400 Hemodialysis Net Amount 1000 Other: Voiding Method External Catheter External Catheter - Exam GENERAL DESCRIPTION: Middle-aged female lying in bed in no distress RESPIRATORY SYSTEM: Unlabored breathing , decreased breath sounds at bases HEART: S1 S2 regular rate and rhythm , ABDOMEN: Soft , patient did have some bruising around her incision no drainage was noticed EXTREMITIES: No edema feet - Labs CBC & Chem 7: 10/05/23 09:06 10/04/23 05:24 Labs: Abnormal Lab Results - Last 24 Hours (Table) 09/30/23 10/04/23 10/05/23 Range/Units 12:36 12:40 09:06 WBC 29.2 H (3.8-10.6) k/uL RBC 2.17 L (3.80-5.40) m/uL Hgb 6.7 L* (11.4-16.0) gm/dL Hct 21.1 L (34.0-46.0) % RDW 23.4 H (11.5-15.5) % Neutrophils # 32.1 H (1.3-7.7) k/uL Neutrophils # (Manual) 27.45 H (1.3-7.7) k/uL Metamyelocytes # (Man) 0.29 H (0) k/uL Nucleated RBCs 19 H (0-0) /100 WBC Vitamin B6 <2 L (5-50) ug/L Crossmatch See Detail Assessment and Plan (1) Perforation of sigmoid colon due to diverticulitis Current Visit: Yes Status: Acute Code(s): K57.20 - DVTRCLI OF LG INT W PERFORATION AND ABSCESS W/O BLEEDING SNOMED Code(s): 9565874452838681 (2) Peritonitis Current Visit: Yes Status: Acute Code(s): K65.9 - PERITONITIS, UNSPECIFIED SNOMED Code(s): 55894430 (3) Leukocytosis Current Visit: No Status: Acute Code(s): D72.829 - ELEVATED WHITE BLOOD CELL COUNT, UNSPECIFIED SNOMED Code(s): 002736031 (4) Sepsis Current Visit: Yes Status: Acute Code(s): A41.9 - SEPSIS, UNSPECIFIED ORGANISM SNOMED Code(s): 84243592 Plan: 1patient presented to the hospital with sepsis in this patient who did have a fever tachycardia meeting criteria for SIRS source is likely perforated diverticulitis with peritonitis and need to cover for the enteric gram-negative both aerobes and anaerobes patient also have complaint of increasing shortness of breath and cough CT shows bilateral lower lobe consolidation, possible pneumonia 2-patient is status post diagnostic laparoscopy sigmoid resection and end colostomy abdominal culture currently growing Enterococcus faecium and faecalis and Cha 3-patient is afebrile , patient white count is trending down did have a drop in hemoglobin may benefit from CT abdominal pelvis 4-patient to continue with Zosyn, daptomycin and Diflucan while inpatient, and monitor clinical course closely Dictation was produced using [employer] dictation software. please excuse any grammatical, word or spelling errors. Time with Patient: Less than 30
[2023-10-05] MEDS: DESMOPRESSIN ACETATE 18 MCG in SODIUM CHLORIDE 0.9% 50 ML IVPB ONE (14:34)
[2023-10-05] MEDS: IOPAMIDOL CONTRAST (ORAL USE) VIAL PO PRN (15:22)
--- NOTE | 2023-10-05 15:25 | P.PN ---
Subjective Progress Note Date: 10/05/23 I have seen the patient last on 09/26/2023 and since then the patient was under care by Dr. Cagle for neurological care. Please refer to his notes for further details. She is having worsening of generalized weakness. Continue to deny of headache. Objective - Vital Signs Vital signs: Vital Signs Temp 98.0 F 10/05/23 14:19 Pulse 83 10/05/23 14:19 Resp 18 10/05/23 14:19 BP 142/80 10/05/23 14:19 Pulse Ox 95 10/05/23 14:19 FiO2 35 09/21/23 20:21 Intake & Output 10/04/23 10/05/23 10/05/23 18:59 06:59 18:59 Intake Total 687 286 Output Total 2570 160 80 Balance -1883 -160 206 Weight 60 kg Intake: Blood Product 287 286 Rc Pheresis As-3 Unit 286 [id number] Rc Pheresis As-3 Unit 287 [id number] Hemodialysis 400 Output: Drainage 70 35 80 SILVIO Abdomen 70 35 80 Urine 50 125 Stool 50 Hemodialysis 1400 Hemodialysis Net Amount 1000 Other: Voiding Method External Catheter External Catheter - Exam GENERAL: The patient is lying in bed and is not in acute distress. NEUROLOGICAL: Limited because of cooperation. Higher mental function: The patient is slightly drowsy but awakeable to voice. Is oriented to self, place and time. Patient is following simple commands. No aphasia. Cranial nerves: The pupils are round, right is 3mm and left is 4mm and reactive to light and accommodation. Visual gomez are full to confrontation throughout. Extraocular movement is intact no nystagmus is noted. No dysarthria is noted. Shoulder shrug is normal bilaterally. Motor: The strength is hard to assess individual muscle strength because of her cooperation but is able to lift bilateral uppers above gravity. In lowers is wiggling toes. Decrease tone throughout. . Some of the workup during this hospital visit consisted of: White blood cell on presentation is 27,000 and is trending down. Hemoglobin is 6.7 and today is 8.6 Most recent creatinine is 2.4. It is drastically better compared to 06/29/2023. Per recent TSH on 07/05/2023 is 3.73 which is normal CK level 25 CT head: It is reported as no acute intracranial process. Nonspecific white matter changes, likely secondary due to chronic small vessel ischemic disease. I personally reviewed the CT and I agree with the report. Carotid duplex: Less than 50% stenosis bilateral carotid bifurcation - Labs CBC & Chem 7: 10/05/23 09:06 10/04/23 05:24 Labs: Abnormal Lab Results - Last 24 Hours (Table) 09/30/23 10/04/23 10/05/23 Range/Units 12:36 12:40 09:06 WBC 29.2 H (3.8-10.6) k/uL RBC 2.17 L (3.80-5.40) m/uL Hgb 6.7 L* (11.4-16.0) gm/dL Hct 21.1 L (34.0-46.0) % RDW 23.4 H (11.5-15.5) % Neutrophils # 32.1 H (1.3-7.7) k/uL Neutrophils # (Manual) 27.45 H (1.3-7.7) k/uL Metamyelocytes # (Man) 0.29 H (0) k/uL Nucleated RBCs 19 H (0-0) /100 WBC Vitamin B6 <2 L (5-50) ug/L Crossmatch See Detail Assessment and Plan Assessment: This is a 63-year-old woman who was 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 During this admission she was found to have unequal pupils left slightly bigger than the right but she denies of any headache visual disturbance difficulty swallowing. Anisocoria left pupil is 4 mm and the right is 3 mm and both reactive to light and denies any headache or visual disturbance: Unsure exact etiology. Possible physiological since only 1mm difference vs medication iduced ?(on nebulizers) vs ?vasculitis.CT head and carotid duplex are unremarkable. Recent perforated sigmoid diverticulitis status post diagnostic laparoscopy with sigmoid colectomy and end colostomy on 09/23/2023 Recent diagnosis of vasculitis and had kidney biopsy at [facility] in June 2023 Acute kidney injury since June 2023 and patient required temporary dialysis wh ich she completed and kidneys are improving but is trending up. Anemia Folate deficiency. B6 deficiency Has significant bilateral lower extremity weakness more than upper since June 2023 the patient states her strength is improving and now she is walking with a walker. Cardiomyopathy and ejection fraction of 25 to 30% since she had vasculitis History of recent pulmonary embolism DVT and is on Coumadin History of COPD Ex tobacco user Plan: KATIE negative, SSA/SSB negative, anti-Hurst antibodies negative, POCKET AND PULLEY MACHINE OPERATOR antibodies negative. B12 2425, folate 4.70, MMA: 0.21 Patient to be started on folic acid 1 mg daily. For B6 deficiency will start on Pyrodoxine 50mg daily and within 2-3 weeks recommend repeating level and modify medication accordingly. The patient is on methylprednisolone tapering dose of 40 mg IV every 8 hours, as per pulmonary team. Patient does not want any further or escalation of work-up for her anisocoria at this time otherwise. Does not want MRI Brain and does not want to pursue with temporal biopsy. I highly doubt giant cell arteritis. Patient is in agreement if has any headache or visual disturbance then will proceed with work-up. Recommend the patient to be evaluated by [facility] as outpatient within 2- 3 weeks. Patient believes she is getting weaker in her arms and legs. Patient will need EMG and nerve conductions of upper and lower extremities to evaluate for polyneuropathy. Dr. Cagle discussed with patient about performing lumbar puncture to rule out elevated proteins, which may suggest an inflammatory component but patient declined. Pulmonary team is on board, ID team is on board, nephrology team is on board and cardiology team is on board Will defer the rest of the medical management to primary and other specialist Recommend patient follow-up with neurologist outpatient for EMG testing. DVT prophylaxis: Patient on Lovenox 60 mg every 24 hours. Will follow-up sporadically. Time with Patient: Less than 30
--- NOTE | 2023-10-05 15:29 | P.PN ---
Subjective Progress Note Date: 10/05/23 CHIEF COMPLAINT: Perforated sigmoid diverticulitis HISTORY OF PRESENT ILLNESS: postop day #11 status post diagnostic laparoscopy with sigmoid colectomy and end colostomy. Patient's ostomy is functioning. Patient reports that she is more short of breath and congested today. She is requesting another breathing treatment this morning. She is scheduled for hemodialysis tomorrow. She reports no abdominal pain. The stool in her ostomy is brown. Afebrile. WBC is down from 34-29.2 Hgb 6.7 platelets 192 INR 1.1 after receiving vitamin K yesterday. SILVIO drain serosanguineous 80 mL output PHYSICAL EXAM: VITAL SIGNS: Reviewed. GENERAL: no acute distress. ABDOMEN: Soft. nondistended. Incision site with ecchymosis and likely hematoma. There is some firmness around the middle of the incision. Ostomy with brown stool present. SILVIO drain serosanguineous ASSESSMENT: 1. Perforated sigmoid diverticulitis 2. Leukocytosis 3. Anemia PLAN: -Patient is receiving another unit of blood today -Continue to hold Coumadin -Continue to monitor hemoglobin -Concerns for possible hematoma at incision site with elevated INR and drop in hemoglobin. CT scan abdomen pelvis scheduled for today has not been completed yet -Continue low fiber -Continue antibiotics Physician Manager Marketing Communication note has been reviewed by physician. Signing provider agrees with the documented findings, assessment, and plan of care. I have personally seen and examined the patient, reviewed the BEAM PRESS OPERATOR /PAs history, exam and MDM and agree with the assessment and plan as written. Based on total visit time, I have performed more than 50% of the visit. As above: Patient says she feels congested today. Says that she often feels thi s way with her COPD. Hemoglobin 6.7 after 1 unit. SILVIO drain serosanguineous. Patient with subcutaneous hematoma. Coumadin on hold. INR normalized for the most part. Await CT abdomen pelvis. Continue antibiotics per infectious disease. Continue regular diet. Objective - Vital Signs Vital signs: Vital Signs Temp 98.0 F 10/05/23 14:19 Pulse 80 10/05/23 15:17 Resp 18 10/05/23 14:19 BP 142/80 10/05/23 14:19 Pulse Ox 95 10/05/23 14:19 FiO2 35 09/21/23 20:21 Intake & Output 10/04/23 10/05/23 10/05/23 18:59 06:59 18:59 Intake Total 687 286 Output Total 2570 160 80 Balance -1883 -160 206 Weight 60 kg Intake: Blood Product 287 286 Rc Pheresis As-3 Unit 286 [id number] Rc Pheresis As-3 Unit 287 [id number] Hemodialysis 400 Output: Drainage 70 35 80 SILVIO Abdomen 70 35 80 Urine 50 125 Stool 50 Hemodialysis 1400 Hemodialysis Net Amount 1000 Other: Voiding Method External Catheter External Catheter - Labs CBC & Chem 7: 10/05/23 09:06 10/04/23 05:24 Labs: Abnormal Lab Results - Last 24 Hours (Table) 09/30/23 10/04/23 10/05/23 Range/Units 12:36 12:40 09:06 WBC 29.2 H (3.8-10.6) k/uL RBC 2.17 L (3.80-5.40) m/uL Hgb 6.7 L* (11.4-16.0) gm/dL Hct 21.1 L (34.0-46.0) % RDW 23.4 H (11.5-15.5) % Neutrophils # 32.1 H (1.3-7.7) k/uL Neutrophils # (Manual) 27.45 H (1.3-7.7) k/uL Metamyelocytes # (Man) 0.29 H (0) k/uL Nucleated RBCs 19 H (0-0) /100 WBC Vitamin B6 <2 L (5-50) ug/L Crossmatch See Detail
[2023-10-05 15:56] VITALS: BMI 20.7
[2023-10-05] MEDS: PYRIDOXINE 50 MG TAB PO SCH (16:18)
[2023-10-06 07:32] LABS: INR 1.2 (<1.2); Prothrombin Time 12.3 sec (10.0-12.5)
[2023-10-06 07:45] LABS: Anisocytosis Moderate; HCT 21.8 % (34.0-46.0); HGB 7.7 gm/dL (11.4-16.0); Hypochromasia Slight; MCH 33.5 pg (25.0-35.0); MCHC 35.1 g/dL (31.0-37.0); MCV 95.3 fL (80.0-100.0); Macrocytosis Slight; Mean Platelet Volume 9.7; Platelet Count 151 k/uL (150-450); Poikilocytosis Slight; RBC 2.29 m/uL (3.80-5.40); RDW 21.8 % (11.5-15.5)
[2023-10-06 08:27] LABS: Neutrophils % (M) 96 %; Nucleated Red Blood Cells 13 /100 WBC (0-0); Total Cells Counted 200
[2023-10-06 08:28] LABS: Lymphocytes # (M) 0.96 k/uL (1.0-4.8); Monocytes # (M) 0.24 k/uL (0-1.0); Neutrophils # (M) 23.14 k/uL (1.3-7.7); WBC 24.1 k/uL (3.8-10.6)
[2023-10-06 08:29] LABS: Polychromasia Present
--- NOTE | 2023-10-06 10:56 | P.PN ---
Subjective Progress Note Date: 10/06/23 This is a 63-year-old female patient of Dr. Daniels who presented to the ER with concerns of increased shortness of breath. Patient was recently admitted at [facility] last week for similar symptoms but did leave AMA prior to completion of treatment. Patient was alsopatient was also recently admitted recently admitted and transferred to [facility] and transferred to [facility] due to diagnosis of vasculitis and required hemodialysis during the hospital stay patient also had episode of pulmonary embolism in which she was started on Coumadin. Patient recently had hemodialysis catheter DC'd.. Additional medical history includes COPD and ex-smoker. Chest x-ray completed in ER showing COPD with superimposed interstitial opacities possible interstitial pulmonary edema versus atypicalCOPD with superimposed interstitial bases possible interstitial pulmonary edema versus atypical pneumonitis. Lab work revealing BNP level 60,000.. [id number] 0.205, 0.403 and 0.521. Creatinine 1.56 bun 47. White blood cell 27.9 hemoglobin 10.5 . Patient was started on Zithromax and Rocephin. Given dose of IV Lasix. Started on heparin drip for elevated troponins. Cardiology pulmonary and nephrology services consulted. Cardiology pulmonary and nephrology service is consulted. Current vital signs Temp 97.3, heart rate 95, respiratory rate 18, blood pressure 143/88 with a pulse ox of 96% on 2 L. On 09/23/2023 patient was seen and examined on the medical floor she is alert and oriented x 3 in no apparent distress, she started complaining of severe abdominal pain in the bilateral lower quadrants this morning, otherwise she denies any complaints there is no fever or chills no headache or dizziness no chest pain no shortness of breath no cough no nausea or vomiting no diarrhea no blood in the stools no burning with urination no frequency or urgency and no hematuria, CT scan of the abdomen and pelvis without contrast was ordered, will follow closely On 09/24/2023 Patient's alert and oriented 3. Patient is status post diagnostic laparoscopy sigmoid colectomy with end colostomy secondary to perforated sigmoid diverticulitis. Patient is currently postop day 1. Patient was transferred to the intensive care unit postoperatively but has been extubated to 2 L. Patient remains on IV Zosyn. Vertical care, nephrology, surgical, infectious disease service is following. Patient denies chest pain or shortness breath. Patient denies nausea vomiting or diarrhea. Burning or frequency On 09/25/2023 patient was seen and examined on the medical floor, she is alert and oriented x 3 in no apparent distress, there is no fever or chills no headache or dizziness no chest pain no shortness of breath no cough no nausea or vomiting no abdominal pain no diarrhea and no urinary symptoms, patient was noticed by her nurse to have an equal pupils, patient denies any previous knowl edge of abnormal pupil size, CT scan of the brain and neurology consultation will be initiated, hemoglobin today is down to 6.7 and patient will be given 1 unit of red blood cells. On 09/26/2023 patient is alert and oriented x 3. Patient has been tolerating full liquid diet. Patient el on IV Zosyn. Neurology services are following. Current vital signs Temp 98.2, rate 85, respiratory rate 15, blood pressure 151/89 with a pulse ox of 95% on 2 L. Patient denies chest pain or shortness of breath. Patient denies nausea vomiting or diarrhea. Patient denies any urinary burning or frequency. On 09/27/2023 patient was seen and examined on the medical floor, she is alert and oriented x 3 in no distress she denies any symptoms at this time there is no fever or chills, no headache or dizziness no chest pain no shortness of breath no cough no nausea or vomiting no abdominal pain no diarrhea no urinary symptoms On 09/28/2023 patient was seen and examined on the medical floor she is alert and oriented in no apparent distress there is no fever or chills no headache or dizziness no chest pain no shortness of breath no cough no nausea or vomiting no abdominal pain no diarrhea no urinary symptoms multiple specialist input reviewed today will follow in a.m. on 09/29/2023atient is alert and oriented 3. Patient underwent hemodialysis yesterday patient remains on IV steroids at [facility] and Zosyn. White blood cell trending down 17.76.current vital signs temp 97.7, heart rate 84, resp iratory rate 17, blood pressure 157/99 with pulse ox 98% on 4 L on 09/29/2024 patient's alert and oriented 3 patientto have hemodialysis today. Creatinine 2.6 bun 46.3.patient remains on Zosyn, Diflucan and daptomycin. Patient also remains on IV Lasix. Patient maintained on full liquid diet per surgical services. This time patient denies chest pain or shortness of breath. Patient denies nausea vomiting or diarrhea. Patient denies any urinary burning or frequency on 10/01/2023 patient is alert and oriented 3. Patient's diet has been advanced per surgical services. Patient denies chest pain or shortness of breath. Patient denies nausea vomiting or diarrhea. Patient denies any urinary burning or frequency.white blood cell increasing to 23. Patient remains on IV Zosyn, daptomycin and Diflucan. Infectious disease services are following.current vital signs temp 97.5, heart rate 75, respiratory rate 18, blood pressure 158/89 with pulse ox 97% on 4 L On 10/02/2023 patient was seen and examined on the medical floor she is alert and oriented x 3 in no apparent distress there is no fever or chills no headache or dizziness no chest pain no shortness of breath no cough no nausea or vomiting no abdominal pain no diarrhea and no urinary symptoms. Currently she is receiving hemodialysis will continue with current management will follow closely On 10/03/2023 patient is alert and oriented x 3. Patient reports she just does not feel too well today. Current current vital signs Temp 97.5, heart rate 79, respiratory rate 17, blood pressure 118/76 with pulse ox of 99% on 3 L. Lab work currently pending. Patient denies chest pain or shortness of breath. Patient denies nausea vomiting or diarrhea. Patient denies any urinary burning or frequency. Patient has been tolerating low fiber diet. On 10/04/2023 patient was seen and examined on the medical floor she is alert and oriented x 3 in no apparent distress she is complaining of generalized fatigue otherwise she denies any complaints there is no fever or chills no headache or dizziness no chest pain no shortness of breath no cough no nausea or vomiting no abdominal pain no diarrhea no urinary symptoms, hemoglobin today is down to 6.0, 1 unit of red blood cell transfusion was ordered, patient is followed by nephrology and is scheduled for hemodialysis today. On 10/05/19 2patient's alert and oriented 3. Hemoglobin 6.7 and additional unit of PRBCs has been ordered. per surgical services concerns of possible hematoma. Computed tomography scan of abdomen has been ordered.white blood cell also elevated at 34. Infectious disease services are following. Current vital signs temp 91, heart rate 72, respiratory rate 17, blood pressure 137/81 with a pulse ox of 97% on 3 L On 10/06/2023 patient is alert and oriented 3. hemoglobin 7.7, white blood cell 24.1. Patient currently getting hemodialysis. CT of abdomen and pelvis was completed awaiting results per surgical services concerns about possible hematoma. Patient remains on IV daptomycin and Zosyn. Patient denies chest pain or shortness breath. Patient denies nausea vomiting or diarrhea. Patient denies any urinary burning or frequency Objective - Vital Signs Vital signs: Vital Signs Temp 98.2 F 10/06/23 06:56 Pulse 68 10/06/23 08:51 Resp 17 10/06/23 06:56 BP 175/83 10/06/23 06:56 Pulse Ox 99 10/06/23 08:39 FiO2 35 09/21/23 20:21 Intake & Output 10/05/23 10/06/23 10/06/23 18:59 06:59 18:59 Intake Total 286 Output Total 380 590 Balance -94 -590 Weight 60 kg 60.5 kg Intake: Blood Product 286 Rc Pheresis As-3 Unit 286 [id number] Output: Drainage 80 140 SILVIO Abdomen 80 140 Urine 300 450 Other: Voiding Method External Catheter External Catheter Diaper External Catheter - Exam Physical examHead normocephalic Neck supple Lungs diminished bilaterally Heart regular rate and rhythm S1-S2, no rub or gallop Abdomen is soft with mild diffuse tenderness especially in the pelvic area bilaterally no organomegaly no palpable masses Extremities no edema Neuro alert and orientated to 3 - Labs CBC & Chem 7: 10/06/23 06:18 10/04/23 05:24 Labs: Abnormal Lab Results - Last 24 Hours (Table) 09/30/23 10/04/23 10/05/23 Range/Units 12:36 12:40 09:06 WBC 29.2 H (3.8-10.6) k/uL RBC (3.80-5.40) m/uL Hgb (11.4-16.0) gm/dL Hct (34.0-46.0) % RDW (11.5-15.5) % Neutrophils # 32.1 H (1.3-7.7) k/uL Neutrophils # (Manual) 27.45 H (1.3-7.7) k/uL Lymphocytes # (Manual) (1.0-4.8) k/uL Metamyelocytes # (Man) 0.29 H (0) k/uL Nucleated RBCs 19 H (0-0) /100 WBC INR (<1.2) Vitamin B6 <2 L (5-50) ug/L Crossmatch See Detail 10/06/23 10/06/23 Range/Units 06:18 06:18 WBC 24.1 H (3.8-10.6) k/uL RBC 2.29 L (3.80-5.40) m/uL Hgb 7.7 L (11.4-16.0) gm/dL Hct 21.8 L (34.0-46.0) % RDW 21.8 H (11.5-15.5) % Neutrophils # (1.3-7.7) k/uL Neutrophils # (Manual) 23.14 H (1.3-7.7) k/uL Lymphocytes # (Manual) 0.96 L (1.0-4.8) k/uL Metamyelocytes # (Man) (0) k/uL Nucleated RBCs 13 H (0-0) /100 WBC INR 1.2 H (<1.2) Vitamin B6 (5-50) ug/L Crossmatch Assessment and Plan Assessment: Acute hypoxic respiratory failure secondary to acute exacerbation of COPD and acute systolic congestive heart failure Acute exacerbation of COPD. Patient started on IV steroids Acute systolic congestive heart failure Perforated sigmoid diverticulitis status post sigmoid colectomy with end colostomy on 09/23/2023 Elevated troponins, likely related to renal failure, seen by cardiology no intervention recommended at this time Acute on chronic kidney disease Recent diagnosis of vasculitis at [facility] Recent history of PE/DVT maintained on Coumadin History of cardiomyopathy with EF of 15 to 20% History of tobacco abuse recently quit Unequal pupil size. Neurology service is following Concerns for possible hematoma per surgical services patient to receive a third unit of PRBCs computed tomography scan of abdomen ordered DVT prophylaxis lovenox. GI prophylaxis Protonix Pulmonary, cardiology and nephrology services consulted Patient started on IV steroids and IV antibiotics patient started back on hemodialysis
--- NOTE | 2023-10-06 12:07 | CT ---
EXAMINATION TYPE: CT abdomen pelvis w con CT DLP: 811.6 mGycm, Automated exposure control for dose reduction was used. DATE OF EXAM: 10/05/2023 5:33 PM COMPARISON: None. CLINICAL INDICATION:Female, 63 years old with history of elevated wbc; elevated wbc TECHNIQUE: Axial CT abdomen pelvis w con;Sagittal and coronal reformats were created on a separate w orkstation. Contrast used:80ml mL of Isovue 300 with IV Contrast, (none if empty) Oral contrast used: with Oral Contrast (none if empty) FINDINGS: LOWER CHEST: Bibasilar consolidating pneumonia. ABDOMEN LIVER: Unremarkable GALLBLADDER AND BILE DUCTS: Poorly visible PANCREAS: Unremarkable. SPLEEN: Unremarkable. ADRENAL GLANDS: Unremarkable. KIDNEYS AND URETERS: No evidence of hydronephrosis or renal calculus. The ureters are unremarkable. PELVIS BLADDER: Unremarkable REPRODUCTIVE: Unremarkable. ABDOMEN & PELVIS STOMACH AND BOWEL: In the left mid abdomen there are some contrast-filled loops of small bowel No juan ramon dence of bowel obstruction. PERITONEUM/RETROPERITONEUM: Abscess in the pelvis has a drain in. The drain appears well placed the d rain approaches from percutaneous right lower quadrant. There is also a left lower quadrant ostomy. VASCULATURE: No evidence of aortic aneurysm. MUSCULOSKELETAL: No acute osseous abnormalities LYMPH NODES: No gross evidence for lymphadenopathy. SOFT TISSUE/ABDOMINAL WALL: Unremarkable IMPRESSION: 1. Bibasilar pneumonia. 2. Drainage tube in abscess in the pelvis. 3. Borderline abnormally dilated loops of small intestine in the mid left and left upper quadrant.
--- NOTE | 2023-10-06 12:34 | P.PN ---
Subjective Progress Note Date: 10/06/23 Principal diagnosis: Reason for follow-up is perforated diverticulitis Patient is a 63-year-old female past medical history significant for COPD vasculitis history of acute kidney injury secondary to ANCA vasculitis presenting to the hospital with shortness of breath and abdominal pain has been diagnosed with a perforated sigmoid diverticulitis in this patient who is status post diagnostic laparoscopic sigmoid colectomy with end colostomy. On today's evaluation that is 10/06/2023, patient has been afebrile, patient is breathing comfortably and is currently on 3 L nasal cannula oxygen, patient denies having any significant cough no chest pain shortness of breath, patient did have some nausea but no vomiting some lower abdominal discomfort did have output in her colostomy. Patient white count of 24.1, abdominal pelvis CT done yesterday not reported yet Objective - Vital Signs Vital signs: Vital Signs Temp 98.2 F 10/06/23 06:56 Pulse 68 10/06/23 08:51 Resp 17 10/06/23 06:56 BP 175/83 10/06/23 06:56 Pulse Ox 99 10/06/23 08:39 FiO2 35 09/21/23 20:21 Intake & Output 10/05/23 10/06/23 10/06/23 18:59 06:59 18:59 Intake Total 286 Output Total 380 590 Balance -94 -590 Weight 60 kg 60.5 kg Intake: Blood Product 286 Rc Pheresis As-3 Unit 286 [id number] Output: Drainage 80 140 SILVIO Abdomen 80 140 Urine 300 450 Other: Voiding Method External Catheter External Catheter Diaper External Catheter - Exam GENERAL DESCRIPTION: Middle-aged female lying in bed in no distress RESPIRATORY SYSTEM: Unlabored breathing , decreased breath sounds at bases HEART: S1 S2 regular rate and rhythm , ABDOMEN: Soft , patient did have some bruising around her incision no drainage was noticed EXTREMITIES: No edema feet - Labs CBC & Chem 7: 10/06/23 06:18 10/04/23 05:24 Labs: Abnormal Lab Results - Last 24 Hours (Table) 09/30/23 10/04/23 10/05/23 Range/Units 12:36 12:40 09:06 WBC 29.2 H (3.8-10.6) k/uL RBC (3.80-5.40) m/uL Hgb (11.4-16.0) gm/dL Hct (34.0-46.0) % RDW (11.5-15.5) % Neutrophils # 32.1 H (1.3-7.7) k/uL Neutrophils # (Manual) 27.45 H (1.3-7.7) k/uL Lymphocytes # (Manual) (1.0-4.8) k/uL Metamyelocytes # (Man) 0.29 H (0) k/uL Nucleated RBCs 19 H (0-0) /100 WBC INR (<1.2) Vitamin B6 <2 L (5-50) ug/L Crossmatch See Detail 10/06/23 10/06/23 Range/Units 06:18 06:18 WBC 24.1 H (3.8-10.6) k/uL RBC 2.29 L (3.80-5.40) m/uL Hgb 7.7 L (11.4-16.0) gm/dL Hct 21.8 L (34.0-46.0) % RDW 21.8 H (11.5-15.5) % Neutrophils # (1.3-7.7) k/uL Neutrophils # (Manual) 23.14 H (1.3-7.7) k/uL Lymphocytes # (Manual) 0.96 L (1.0-4.8) k/uL Metamyelocytes # (Man) (0) k/uL Nucleated RBCs 13 H (0-0) /100 WBC INR 1.2 H (<1.2) Vitamin B6 (5-50) ug/L Crossmatch Assessment and Plan (1) Perforation of sigmoid colon due to diverticulitis Current Visit: Yes Status: Acute Code(s): K57.20 - DVTRCLI OF LG INT W PERFORATION AND ABSCESS W/O BLEEDING SNOMED Code(s): 6914579903783019 (2) Peritonitis Current Visit: Yes Status: Acute Code(s): K65.9 - PERITONITIS, UNSPECIFIED SNOMED Code(s): 94561089 (3) Leukocytosis Current Visit: No Status: Acute Code(s): D72.829 - ELEVATED WHITE BLOOD CELL COUNT, UNSPECIFIED SNOMED Code(s): 654114078 (4) Sepsis Current Visit: Yes Status: Acute Code(s): A41.9 - SEPSIS, UNSPECIFIED ORGANISM SNOMED Code(s): 08125429 Plan: 1patient presented to the hospital with sepsis in this patient who did have a fever tachycardia meeting criteria for SIRS source is likely perforated diverticulitis with peritonitis and need to cover for the enteric gram-negative both aerobes and anaerobes patient also have complaint of increasing shortness of breath and cough CT shows bilateral lower lobe consolidation, possible pneumonia 2-patient is status post diagnostic laparoscopy sigmoid resection and end colostomy abdominal culture currently growing Enterococcus faecium and faecalis and Cha 3-patient is afebrile , patient white count is trending down patient did have abdominal pelvis CT yesterday not yet reported results will be followed 4-patient to continue with Zosyn, daptomycin and Diflucan while inpatient, and continue supportive care Dictation was produced using [employer] dictation software. please excuse any grammatical, word or spelling errors.
--- NOTE | 2023-10-06 12:49 | P.PN ---
Subjective Progress Note Date: 10/06/23 Principal diagnosis: Cute hypoxic respiratory failure secondary to acute exacerbation of COPD and acute systolic congestive heart failure This is a 63-year-old female patient with a known history of chronic obstructive pulmonary disease, former smoker, previous acute kidney injury requiring dialysis that she completed approximately 2 weeks ago. She presented here to the emergency room today with increasing shortness of breath. Symptoms started just this morning. No fever or chills. No cough or congestion. Mainly dyspnea on minimal exertion. Chest x-ray reveals evidence of COPD with superimposed interstitial opacities, possible pulmonary edema versus atypical pneumonia. White count 27.9. Hemoglobin 10.5. Platelets 294. INR 1.3. Sodium 136. Potassium 4.3. Bicarb 30. BUN 47. Creatinine 1.56. Glucose 196. Troponin 0.205. proBNP 60,000. The patient is seen in consultation in the emergency department. She is currently sitting up on the stretcher. Awake and alert. On BiPAP 14/5 and 40% FiO2 to maintain O2 saturations in the 90s. Been initiated on a heparin drip. Initiated on antibiotics, bronchodilators and steroids. The patient is seen today September 22, 2023 in follow-up in the emergency department. She is awake and alert in no acute distress. Breathing easier today compared to yesterday. She is maintaining good O2 saturations in the 90s on 2 L/min per nasal cannula. She has been off the BiPAP. She remains on a heparin drip. Peak troponin 0.521. She is continued on DuoNeb inhalations, Symbicort, Solu-Medrol. She is continued on ceftriaxone. Chest x-ray shows diffuse interstitial opacities with slight improvement. The patient is seen today September 27, 2023 in follow-up on the regular medical floor. She is currently sitting up in a chair. Awake and alert in no acute distress. She is still receiving oxygen at 6 L/min per nasal cannula. Lactated Ringer's at 75 MLS per hour. She did have an episode of shortness of breath and anxiety last evening. She states she is feeling better today. X-ray reveals evidence of fluid volume overload. No focal consolidation, pneumothorax or pleural effusion. Right internal jugular catheter in place. She is status post 1 unit of packed red blood cells and 2 units of fresh frozen plasma this admission. Abdominal fluid cultures were positive for bacteroids. Wound culture positive for Enterococcus faecium VRE, Enterococcus faecalis VRE and Cha. White count 20.1. Hemoglobin 8.7. Platelets 227. Sodium 135. Potassium 5.8. Bicarb 23. BUN 63. Creatinine 2.46. Glucose 124. She is continued on DuoNeb inhalations, Symbicort, daptomycin and Zosyn. Lovenox for DVT prophylaxis. The patient is seen today September 28, 2023 in follow-up on the regular medical floor. She is currently resting in bed. Awake and alert in no acute distress. Feeling better today compared to yesterday. She is maintaining good O2 saturations in the 90s on 4 L/min per nasal cannula. No IV fluids. She is continued on daptomycin and Zosyn. Chest x-ray reveals right pleural effusion with pulmonary vascular congestion. Left lung is relatively clear. She remains on DuoNeb ventilations, Pulmicort and Perforomist inhalations, Solu-Medrol. Lovenox for DVT prophylaxis. Sodium 131. Potassium 5.1. Bicarb 23. BUN 69. Creatinine 2.68. Glucose 146. She was given Lasix 60 mg IVP x 1. She is currently in a -1.5 L balance. The patient is seen today September 29, 2023 in follow-up on the regular medical floor. She is currently sitting up in bed. Awake and alert in no acute distress. Maintaining good O2 saturations in the 90s on 4 L/min per nasal cannula. She is status post 1 unit of packed red blood cells and 2 units of platelets fresh frozen plasma this admission. Abdominal fluid and wound cultures were positive for Enterococcus faecium VRE, Enterococcus faecalis VRE, Cha. White count 17.7. Hemoglobin 7.9. Platelets 233. Sodium 136. Potassium 3.5. Bicarb 27. BUN 33. Creatinine 2.0. Glucose 152. She remains on DuoNeb inhalations, Pulmicort and Perforomist inhalations, Solu-Medrol. Antibiotics in the form of daptomycin and Zosyn. The patient is seen today September 30, 2023 in follow-up on the regular medical floor. She is resting comfortably in bed. Maintaining good O2 saturations in the 90s on 5 L/min per nasal cannula. She is status post 1 unit of packed red blood cells and 2 fresh frozen plasma this admission. Abdominal cultures were positive for Enterococcus faecium and Enterococcus faecalis both VRE. White count 19.6. Hemoglobin 7.5. Platelets 225. INR 1.4. Sodium 137. Potassium 3.8. Bicarb 24. BUN 46. Creatinine 2.6. Glucose 160. She is continued on DuoNeb inhalations, Symbicort, Solu-Medrol. Antibiotics in the form of Zosyn an d daptomycin. Lovenox for DVT prophylaxis. Currently on Lasix 60 mg IV every 12 hours. Currently in a -5.9 L balance. The patient is seen today October 01, 2023 in follow-up on the regular medical fl oor. She is sitting up in bed. Awake and alert in no acute distress. Feeling stronger each day. She is maintaining O2 saturations in the 90s on 4 L/min per nasal cannula. She has been resumed on hemodialysis. She remains on Zosyn and daptomycin. Abdominal cultures were positive for Enterococcus faecium and Enterococcus faecalis both VRE. She remains on DuoNeb inhalations, Symbicort, Solu-Medrol. Remains on Lovenox. White count 23.7. Hemoglobin 8.2. Platelets 238. INR 1.64. Sodium 136. Potassium 4.3. Bicarb 26. BUN 27. Creatinine 1.9. Glucose 140. The patient is seen today October 02, 2023 in follow-up on the regular medical floor. She is sitting up at the bedside. Awake and alert in no acute distress. She has had some issues with dizziness while up. She did receive hemodialysis yesterday with 1.9 L removed. The plan is for hemodialysis again today. She is maintaining good O2 saturations in the 90s on 3.5 L/min per nasal cannula. Normal saline at KVO. She is continued on DuoNeb inhalations, Symbicort, Solu- Medrol. Lovenox for anticoagulation. She remains on daptomycin and Zosyn. Anticoagulated with warfarin. INR 2.0. She remains on Lasix 60 mg every 12 hours. Currently in a -5 L balance. The patient is seen today October 03, 2023 in follow-up on the regular medical floor. She is sitting up at the bedside. Awake and alert in no acute distress. Feeling stronger each day. She maintains a good O2 saturations in the 90s on 3 L/min per nasal cannula. No IV fluids. Chest x-ray continues to small small atelectasis/effusions. Stable. She remains on DuoNeb inhalations, Symbicort, Solu-Medrol. Antibiotics in the form of Zosyn. She remains on Lasix 60 mg IV every 12 hours. Currently in a -5 L balance. Plan is for hemodialysis on Wednesday, October 04, 2023. The patient is seen today October 04, 2023 in follow-up on the regular medical floor. She is awake and alert in no acute distress. Sitting up in bed. Currently receiving hemodialysis. She is maintaining O2 saturations in the 90s 3 L/min per nasal cannula. She has been afebrile. Hemodynamically stable. Her hemoglobin this morning was 6.0. She is to receive a second unit of packed red blood cells. White count 34.6. Platelets 191. INR 4.6. Sodium 135. Potassium 5.0. Bicarb 24. BUN 50. Creatinine 2.7. Abdominal wound cultures were positive for Enterococcus faecium VRE. She remains on DuoNeb inhalations, Symbicort, Solu-Medrol. Antibiotics in the form of daptomycin and Zosyn. The patient is seen today October 05, 2023 in follow-up on the regular medical floor. She is currently resting comfortably in bed. Awake and alert in no acute distress. She is maintaining O2 saturations in the 90s on 3 L/min per nasal cannula. She is receiving a 3rd unit of packed red blood cells today for hemoglobin of 6.7. Platelets 192. White count 29.2. INR 1.1. Abdominal wound cultures were positive for Enterococcus faecium VRE. She remains on DuoNeb inhalations, Symbicort, Solu-Medrol. Antibiotics in the form of daptomycin and Zosyn. She remains on Lasix 60 mg IV every 12 hours. Currently in a -2 L balance. Patient was seen on October 05/2024, patient is receiving hemodialysis, she seems to be doing fairly well, does not seem to be in any distress, plan is to remove 1.5 L of fluids today. Patient received a total of 3 units of packed RBCs and trace of fresh frozen plasma since her admission, hemoglobin today is 7.7. He is on antibiotics for her Enterococcus faecium/VRE, patient is on daptomycin and Zosyn, remains on diuretics, remains on bronchodilators. John genao the patient is holding quite nicely Objective - Vital Signs Vital signs: Vital Signs Temp 98.2 F 10/06/23 06:56 Pulse 80 10/06/23 12:33 Resp 17 10/06/23 06:56 BP 175/83 10/06/23 06:56 Pulse Ox 99 10/06/23 08:39 FiO2 35 09/21/23 20:21 Intake & Output 10/05/23 10/06/23 10/06/23 18:59 06:59 18:59 Intake Total 286 Output Total 380 590 Balance -94 -590 Weight 60 kg 60.5 kg Intake: Blood Product 286 Rc Pheresis As-3 Unit 286 [id number] Output: Drainage 80 140 SILVIO Abdomen 80 140 Urine 300 450 Other: Voiding Method External Catheter External Catheter Diaper External Catheter - Exam GENERAL EXAM: Alert, 63-year-old female, on 3 L/min per nasal cannula, in no apparent distress. HEAD: Normocephalic. EYES: Normal reaction of pupils, equal size. NOSE: Clear with pink turbinates. THROAT: No erythema or exudates. NECK: No masses, no JVD. CHEST: No chest wall deformity. LUNGS: Equal air entry with bibasilar crackles, diminished. CVS: S1 and S2 normal with no audible murmur, regular rhythm. ABDOMEN: Colostomy with stool present. Dressing intact. SPINE: No scoliosis or deformity SKIN: No rashes. Skin tear noted on left hand CENTRAL NERVOUS SYSTEM: No focal deficits, tone is normal in all 4 extremities. EXTREMITIES: There is 1+ peripheral edema. No clubbing, no cyanosis. P eripheral pulses are intact. - Labs CBC & Chem 7: 10/06/23 06:18 10/04/23 05:24 Labs: Abnormal Lab Results - Last 24 Hours (Table) 10/04/23 10/06/23 10/06/23 Range/Units 12:40 06:18 06:18 WBC 24.1 H (3.8-10.6) k/uL RBC 2.29 L (3.80-5.40) m/uL Hgb 7.7 L (11.4-16.0) gm/dL Hct 21.8 L (34.0-46.0) % RDW 21.8 H (11.5-15.5) % Neutrophils # (Manual) 23.14 H (1.3-7.7) k/uL Lymphocytes # (Manual) 0.96 L (1.0-4.8) k/uL Nucleated RBCs 13 H (0-0) /100 WBC INR 1.2 H (<1.2) Crossmatch See Detail Assessment and Plan Assessment: Impression:Acute hypoxemic respiratory failure secondary to an acute exacerbation of chronic obstructive pulmonary disease, acute systolic congestive heart failure Status post exploratory laparotomy, sigmoid colectomy, and end sigmoid colostomy for ruptured sigmoid diverticulum on September 23, 2023. Cultures positive for Enterococcus faecium VRE, Enterococcus faecalis VRE, Cha. Currently on daptomycin and Zosyn Acute kidney injury secondary to ANCA vasculitis and cardiorenal syndrome previously on hemodialysis. Permacath still in place and restarted on hemodialysis 09/28/2023 Leukocytosis Anemia requiring a third unit of packed red blood cells this admission. Current hemoglobin 6.7 Severe cardiomyopathy with an ejection fraction of 25-30 % History of chronic obstructive pulmonary disease Chronic tobacco dependence ANCA vasculitis and was to have had a kidney biopsy in June 2023 unclear if this was done History of PE/DVT, on warfarin Recommendation: Continue present supportive care measures Continue to monitor labs on a daily basis including hemoglobin and electrolytes. Continue bronchodilators, Titrate oxygen accordingly, Will continue to follow, will clear for discharge once cleared by other consultants on the case. Time with Patient: Less than 30
--- NOTE | 2023-10-06 12:51 | P.PN ---
Subjective patient is seen for follow-up for acute kidney injury. History of hemodialysis dependent acute kidney injury with recovery of renal function and patient has been off of dialysis for about 3 weeks now. Restarted on dialysis this admission due to severe volume overload and worsening renal function. Oxygen requirement decreased but patient remains quite debilitated. There are plans for discharge to subacute rehab. patient is seen on hemodialysis. Tolerating treatment well. Goal UF about 2 L. Objective - Vital Signs Vital signs: Vital Signs Temp 98.2 F 10/06/23 06:56 Pulse 80 10/06/23 12:33 Resp 17 10/06/23 06:56 BP 175/83 10/06/23 06:56 Pulse Ox 99 10/06/23 08:39 FiO2 35 09/21/23 20:21 Intake & Output 10/05/23 10/06/23 10/06/23 18:59 06:59 18:59 Intake Total 286 Output Total 380 590 Balance -94 -590 Weight 60 kg 60.5 kg Intake: Blood Product 286 Rc Pheresis As-3 Unit 286 [id number] Output: Drainage 80 140 SILVIO Abdomen 80 140 Urine 300 450 Other: Voiding Method External Catheter External Catheter Diaper External Catheter - Exam patient is awake, comfortable, mild respiratory distress. Examination of the heart S1 and S2 Examination of the lungs bilateral breath sounds are heard Abdomen is soft ,mild tenderness Examination of lower extremities shows no edema TRANSPORTATION JOB TITLES exam grossly intact - Labs CBC & Chem 7: 10/06/23 06:18 10/04/23 05:24 Labs: Abnormal Lab Results - Last 24 Hours (Table) 10/04/23 10/06/23 10/06/23 Range/Units 12:40 06:18 06:18 WBC 24.1 H (3.8-10.6) k/uL RBC 2.29 L (3.80-5.40) m/uL Hgb 7.7 L (11.4-16.0) gm/dL Hct 21.8 L (34.0-46.0) % RDW 21.8 H (11.5-15.5) % Neutrophils # (Manual) 23.14 H (1.3-7.7) k/uL Lymphocytes # (Manual) 0.96 L (1.0-4.8) k/uL Nucleated RBCs 13 H (0-0) /100 WBC INR 1.2 H (<1.2) Crossmatch See Detail Assessment and Plan Assessment: 1. 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 Also component of cardiorenal syndrome. Renal function slowly worsening this admission. Creatinine was 1.9 dated September 07, 2023. Patient was hemodialysis dependent but was recently taken off hemodialysis. Ultrasound from June 2023 showed no evidence of hydronephrosis. Restarted hemodialysis on 09/28/2023 due to worsening renal function and volume overload. 2. ANCA vasculitis maintained on prednisone. Status post 2 doses of IV rituximab 1 g completed August 2023. Maintained on 30 mg of prednisone outpatient. Repeat serologies are negative. 3. Acute on chronic systolic CHF ejection fraction of 25 to 30% with severe pulmonary hypertension and moderate tricuspid regurgitation. 4. Acute hypoxic respiratory failure secondary to COPD exacerbation as well as CHF. Some improvement in chest x-ray noted with ultrafiltration with hemodialysis. 5. History of PE maintained on anticoagulation. 6. Anemia. high ferritin noted. packed RBCs transfusion today. 7. Pneumoperitoneum status post diagnostic laparoscopy, sigmoid colectomy with end colostomy 09/23/2023. 8. Volume overload, improving. Status post UF close to 8 L over the last 4 days. Plan: change diuretic to oral. repeat serologies are negative can switch to oral prednisone Hemodialysis in a.m.
--- NOTE | 2023-10-06 16:46 | P.PN ---
Subjective Progress Note Date: 10/06/23 CHIEF COMPLAINT: Perforated sigmoid diverticulitis HISTORY OF PRESENT ILLNESS: postop day #12 status post diagnostic laparoscopy with sigmoid colectomy and end colostomy. Patient's ostomy is functioning. Patient is less congested today. Patient does report a fullness at her incision site lower abdomen. Her stool remains brown. CT scan abdomen and pelvis reports bibasilar pneumonia. Drainage tube in abscess in the pelvis. Borderline abnormality dilated loops of small intestine in the mid left and left upper quadrant.. Afebrile. WBC is down from 29-24 Hgb 6.7 up to 7.7 after blood transfusion yesterday. INR 1.2 SILVIO drain 60 mL sanguinous output. PHYSICAL EXAM: VITAL SIGNS: Reviewed. GENERAL: no acute distress. ABDOMEN: Soft. nondistended. Incision site with ecchymosis and likely h ematoma. There is some firmness around the middle of the incision. Ostomy with brown stool present. SILVIO drain sanguinous ASSESSMENT: 1. Perforated sigmoid diverticulitis 2. Leukocytosis 3. Anemia 4. Subcutaneous hematoma at incision site PLAN: -Further recommendations forthcoming per surgeon -Continue to monitor -Continue to hold Coumadin -Continue to monitor hemoglobin -Continue low fiber -Continue antibiotics Physician Bindery Manager note has been reviewed by physician. Signing provider agrees with the documented findings, assessment, and plan of care. Objective - Vital Signs Vital signs: Vital Signs Temp 97.6 F 10/06/23 13:00 Pulse 68 10/06/23 15:57 Resp 16 10/06/23 13:00 BP 113/82 10/06/23 13:00 Pulse Ox 98 10/06/23 13:00 FiO2 35 09/21/23 20:21 Intake & Output 10/05/23 10/06/23 10/06/23 18:59 06:59 18:59 Intake Total 286 Output Total 380 590 Balance -94 -590 Weight 60 kg 60.5 kg Intake: Blood Product 286 Rc Pheresis As-3 Unit 286 [id number] Output: Drainage 80 140 SILVIO Abdomen 80 140 Urine 300 450 Other: Voiding Method External Catheter External Catheter Diaper External Catheter - Labs CBC & Chem 7: 10/06/23 06:18 10/04/23 05:24 Labs: Abnormal Lab Results - Last 24 Hours (Table) 07/31/24 07/31/24 Range/Units 06:18 06:18 WBC 24.1 H (3.8-10.6) k/uL RBC 2.29 L (3.80-5.40) m/uL Hgb 7.7 L (11.4-16.0) gm/dL Hct 21.8 L (34.0-46.0) % RDW 21.8 H (11.5-15.5) % Neutrophils # (Manual) 23.14 H (1.3-7.7) k/uL Lymphocytes # (Manual) 0.96 L (1.0-4.8) k/uL Nucleated RBCs 13 H (0-0) /100 WBC INR 1.2 H (<1.2)
--- NOTE | 2023-10-06 18:40 | P.CONS ---
History of Present Illness - Reason for Consult Consult date: 10/06/23 anemia Requesting physician: Franklin Mrarero - Chief Complaint ruptured diverticuli - History of Present Illness Mrs. Coulter is a 63-year-old female on day 15 of hospitalization for perforated diverticulum, peritonitis and acute renal failure. We have been consulted for anemia. Patient reports of a history of anemia starting earlier this year, and chart review Hgb dropped 3 g from a November lab in 2022 to June 2023. It was also noted she had acute renal failure at that time. She was diagnosed with ANCA vasculitis. She received dialysis, she has received monoclonal antibody rituximab x 2, last dose August 2023. She is maintained on prednisone daily. Patient is currently denying any bleeding, she does have some easy bruising. No recent fevers, nausea, vomiting, hemoptysis, new or unusual cough or shortness of breath, abdominal pain or cramping, dysuria, hematuria, hematochezia or melena. She has received 3 units of packed red blood cells since admission, unit on 09/24, 10/03 and 10/04. Patient has had a near appropriate response to 2 units of blood for hemoglobin of 6, today it is 7.7. White blood cell count is starting to trend down it is 24 today. BUN 50.1, creatinine 2.7 on 10/03, she is on Aranesp through Nephrology. She was coagulopathic, received FFP x 2 09/22. INR is 1.2 today. She received DDAVP. Anemia workup consistent with anemia of inflammation, B6 deficiency noted and is supplemented. Review of Systems 10 point review of systems is negative except as stated in HPI Past Medical History Past Medical History: COPD, Dialysis Additional Past Medical History / Comment(s): ANCA vasculitis, dialysis-recently discontinued History of Any Multi-Drug Resistant Organisms: VRE Year Discovered:: 09/23/23 MDRO Source:: Abd. fluid Additional Past Surgical History / Comment(s): dialysis port inserted Past Psychological History: No Psychological Hx Reported Smoking Status: Former smoker Past Alcohol Use History: Unable to Obtain Past Drug Use History: Unable to Obtain Medications and Allergies Home Medications Medication Instructions Recorded Confirmed Type Albuterol Sulfate [Ventolin HFA] 1 - 2 puff INHALATION RT-Q4H PRN 06/29/23 09/21/23 History Cholecalciferol [Vitamin D3 (25 25 mcg PO DAILY 06/29/23 09/21/23 History Mcg = 1000 Iu)] Fluticasone/Umeclidin/Vilanter 1 puff INHALATION RT-DAILY 06/29/23 09/21/23 History [Trelegy Ellipta 200-62.5-25] Furosemide [Lasix] 80 mg PO DAILY 08/26/23 09/21/23 History Isosorbide Dinitrate [Isordil] 10 mg PO DAILY 08/26/23 09/21/23 History Pantoprazole [Protonix] 40 mg PO DAILY 08/26/23 09/21/23 History Sulfamethox-Tmp 800-160Mg [Bactrim 2 tab PO DIRECTED 08/26/23 09/21/23 History DS 800-160 mg] Warfarin [Coumadin] 2.5 mg PO DAILY 08/26/23 09/21/23 History carvediloL [Coreg] 6.25 mg PO BID 08/26/23 09/21/23 History guaiFENesin [guaiFENesin Oral 200 mg PO Q4H PRN 08/26/23 09/21/23 History Solution] predniSONE [Deltasone] 60 mg PO DAILY 08/26/23 09/21/23 History Atorvastatin [Lipitor] 40 mg PO DAILY 09/21/23 09/21/23 History Ondansetron Odt [Zofran Odt] 4 mg PO Q6H PRN 09/21/23 09/21/23 History Oyster Shell Calcium 500 mg PO DAILY 09/21/23 09/21/23 History Potassium Chloride [Potassium 20 meq PO BID 09/21/23 09/21/23 History Chloride ER (K-Dur GEQ)] Allergies Allergy/AdvReac Type Severity Reaction Status Date / Time No Known Allergies Allergy Verified 09/21/23 16:39 Physical Exam Vitals: Vital Signs Temp Pulse Pulse Resp BP BP Pulse Ox 10/06/23 16:51 97.7 F 14 148/88 10/06/23 15:57 68 10/06/23 15:46 68 10/06/23 13:00 97.6 F 64 16 113/82 98 10/06/23 12:33 80 10/06/23 12:22 76 10/06/23 08:51 68 10/06/23 08:39 60 99 10/06/23 06:56 98.2 F 59 L 17 175/83 99 10/06/23 01:30 97.5 F L 65 17 162/87 98 10/05/23 19:34 97.8 F 76 18 164/92 98 10/05/23 18:31 80 Intake and Output 10/06/23 10/06/23 10/06/23 06:59 14:59 22:59 Intake Total 500 Output Total 510 8721 Balance -510 -6654 Intake: Hemodialysis 500 Output: Drainage 60 SILVIO Abdomen 60 Urine 450 Stool 275 Hemodialysis 2000 Hemodialysis Net Amount 1500 Other: Voiding Method Diaper External Catheter Weight 60.5 kg - Constitutional General appearance: average body habitus, cooperative, no acute distress - EENT Eyes: anicteric sclerae, EOMI ENT: hearing grossly normal - Neck Neck: no lymphadenopathy - Respiratory Respiratory: bilateral: CTA (Diminished bases) - Cardiovascular Rhythm: regular - Gastrointestinal General gastrointestinal: soft - Integumentary Integumentary: pale - Neurologic Neurologic: CNII-XII intact - Musculoskeletal Musculoskeletal: generalized weakness, strength equal bilaterally - Psychiatric Psychiatric: A&O x's 3, appropriate affect, intact judgment & insight Results CBC & Chem 7: 10/06/23 06:18 10/04/23 05:24 Labs: Abnormal Lab Results - Last 24 Hours (Table) 10/06/23 10/06/23 Range/Units 06:18 06:18 WBC 24.1 H (3.8-10.6) k/uL RBC 2.29 L (3.80-5.40) m/uL Hgb 7.7 L (11.4-16.0) gm/dL Hct 21.8 L (34.0-46.0) % RDW 21.8 H (11.5-15.5) % Neutrophils # (Manual) 23.14 H (1.3-7.7) k/uL Lymphocytes # (Manual) 0.96 L (1.0-4.8) k/uL Nucleated RBCs 13 H (0-0) /100 WBC INR 1.2 H (<1.2) CT scan - abdomen: report reviewed CT scan - pelvis: report reviewed Assessment and Plan (1) Anemia Current Visit: Yes Status: Acute Priority: Medium Code(s): D64.9 - ANEMIA, UNSPECIFIED SNOMED Code(s): 015949700 Plan: Normocytic normochromic anemia -First noted in this electronic medical record June 2023. Patient states that this was about the same time that she was diagnosed with ANCA vasculitis and acute renal failure. Her hemoglobin since that time has been in the 8 range. -Hemoglobin did drop during this admission. Surgery, acute infection, acute r enal failure all contributing. -CT of the abdomen and pelvis was negative for any acute bleed. -Hemoglobin stable at 7.7 after 2 units of blood given for hemoglobin of 6. A near appropriate response. Continue to monitor CBC. Transfuse for hemoglobin less than 7. -Anemia workup identified a significant B6 deficiency. This has been supplemented. -Iron studies most consistent with anemia of inflammation. -For MARIA E iron saturation is usually desired to be 20% or higher. Would hold off on parenteral iron until it is certain that patient's infection is well- controlled.
[2023-10-07] MEDS: TORSEMIDE 20 MG TAB PO SCH (08:24)
--- NOTE | 2023-10-07 14:01 | P.PN ---
Subjective Progress Note Date: 10/07/23 I am following-up with patient and she feels better today compared to yesterday. She feels she has more strength overall. per the nurse she had dialysis yesterday and blood transfusion yesterday as well. Objective - Vital Signs Vital signs: Vital Signs Temp 97.8 F 10/07/23 12:59 Pulse 71 10/07/23 12:59 Resp 16 10/07/23 12:59 BP 147/76 10/07/23 12:59 Pulse Ox 95 10/07/23 12:59 FiO2 35 09/21/23 20:21 Intake & Output 10/06/23 10/07/23 10/07/23 18:59 06:59 18:59 Intake Total 500 450 Output Total 3775 265 155 Balance -3275 -265 295 Weight 60.5 kg Intake: Oral 450 Hemodialysis 500 Output: Drainage 190 80 SILVIO Abdomen 190 80 Stool 275 75 75 Hemodialysis 2000 Hemodialysis Net Amount 1500 Other: Voiding Method Diaper External Catheter External Catheter External Catheter - Exam GENERAL: The patient is lying in bed and is not in acute distress. NEUROLOGICAL: Limited. Higher mental function: The patient is awake, alert, oriented to self, place and time. Patient is following simple commands. No aphasia. Cranial nerves: The pupils are round, right is 3mm and left is 4mm and reactive to light and accommodation. Visual gomez are full to confrontation throughout. Extraocular movement is intact no nystagmus is noted. No dysarthria is noted. Shoulder shrug is normal bilaterally. Motor: The strength is hard to assess individual muscle strength because of her cooperation but is able to lift bilateral uppers above gravity. In lowers is wiggling toes but no movement proximally.. Decrease tone throughout. . Some of the workup during this hospital visit consisted of: White blood cell on presentation is 27,000 and is trending down. Hemoglobin is 6.7 and today is 8.6 Most recent creatinine is 2.4. It is drastically better compared to 06/29/2023. Per recent TSH on 07/05/2023 is 3.73 which is normal CK level 25 CT head: It is reported as no acute intracranial process. Nonspecific white matter changes, likely secondary due to chronic small vessel ischemic disease. I personally reviewed the CT and I agree with the report. Carotid duplex: Less than 50% stenosis bilateral carotid bifurcation - Labs CBC & Chem 7: 07/31/24 06:18 10/04/23 05:24 Assessment and Plan Assessment: This is a 63-year-old woman who was 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 During this admission she was found to have unequal pupils left slightly bigger than the right but she denies of any headache visual disturbance difficulty swallowing. Anisocoria left pupil is 4 mm and the right is 3 mm and both reactive to light and denies any headache or visual disturbance: Unsure exact etiology. Possible physiological since only 1mm difference vs medication iduced ?(on nebulizers) vs ?vasculitis.CT head and carotid duplex are unremarkable. Recent perforated sigmoid diverticulitis status post diagnostic laparoscopy with sigmoid colectomy and end colostomy on 09/23/2023 Recent diagnosis of vasculitis and had kidney biopsy at [facility] in June 2023 Acute kidney injury since June 2023 and patient required temporary dialysis which she completed and kidneys are improving but is trending up. Anemia Folate deficiency. B6 deficiency Has significant bilateral lower extremity weakness more than upper since June 2023 the patient states her strength is improving and now she is walking with a walker. Cardiomyopathy and ejection fraction of 25 to 30% since she had vasculitis History of recent pulmonary embolism DVT and is on Coumadin History of COPD Ex tobacco user Plan: KATIE negative, SSA/SSB negative, anti-Hurst antibodies negative, PRODUCTION [employer]ITIZER antibodies negative. B12 2425, folate 4.70, MMA: 0.21 Patient to be started on folic acid 1 mg juan y. For B6 deficiency will start on Pyrodoxine 50mg daily and within 2-3 weeks recommend repeating level and modify medication accordingly. The patient is on methylprednisolone tapering dose of 40 mg IV every 8 hours, as per pulmonary team. Patient does not want any further or escalation of work-up for her anisocoria at this time otherwise. Does not want MRI Brain and does not want to pursue with temporal biopsy. I highly doubt giant cell arteritis. Patient is in agreement if has any headache or visual disturbance then will proceed with work-up. Recommend the patient to be evaluated by [facility] as outpatient within 2- 3 weeks. Patient will need EMG and nerve conductions of upper and lower extremities to evaluate for polyneuropathy. Dr. Cagle discussed with patient about performing lumbar puncture to rule out elevated proteins, which may suggest an inflammatory component but patient declined. Pulmonary team is on board, ID team is on board, nephrology team is on board and cardiology team is on board Will defer the rest of the medical management to primary and other specialist Recommend patient follow-up with neurologist outpatient for EMG testing. DVT prophylaxis: Patient on Lovenox 60 mg every 24 hours. The plan is discussed with patient and her nurse. Will follow-up sporadically. Time with Patient: Less than 30
--- NOTE | 2023-10-07 15:07 | P.PN ---
Subjective Progress Note Date: 10/07/23 This is a 63-year-old female patient with a known history of chronic obstructive pulmonary disease, former smoker, previous acute kidney injury requiring dialysis that she completed approximately 2 weeks ago. She presented here to the emergency room today with increasing shortness of breath. Symptoms started just this morning. No fever or chills. No cough or congestion. Mainly dyspnea on minimal exertion. Chest x-ray reveals evidence of COPD with superimposed interstitial opacities, possible pulmonary edema versus atypical pneumonia. White count 27.9. Hemoglobin 10.5. Platelets 294. INR 1.3. Sodium 136. Potassium 4.3. Bicarb 30. BUN 47. Creatinine 1.56. Glucose 196. Troponin 0.205. proBNP 60,000. The patient is seen in consultation in the emergency department. She is currently sitting up on the stretcher. Awake and alert. On BiPAP 14/5 and 40% FiO2 to maintain O2 saturations in the 90s. Been initiated on a heparin drip. Initiated on antibiotics, bronchodilators and steroids. The patient is seen today September 22, 2023 in follow-up in the emergency department. She is awake and alert in no acute distress. Breathing easier today compared to yesterday. She is maintaining good O2 saturations in the 90s on 2 L/min per nasal cannula. She has been off the BiPAP. She remains on a heparin drip. Peak troponin 0.521. She is continued on DuoNeb inhalations, Symbicort, Solu-Medrol. She is continued on ceftriaxone. Chest x-ray shows diffuse interstitial opacities with slight improvement. The patient is seen today September 27, 2023 in follow-up on the regular medical [facility] or. She is currently sitting up in a chair. Awake and alert in no acute distress. She is still receiving oxygen at 6 L/min per nasal cannula. Lactated Ringer's at 75 MLS per hour. She did have an episode of shortness of breath and anxiety last evening. She states she is feeling better today. X-ray reveals evidence of fluid volume overload. No focal consolidation, pneumothorax or pleural effusion. Right internal jugular catheter in place. She is status post 1 unit of packed red blood cells and 2 units of fresh frozen plasma this admission. Abdominal fluid cultures were positive for bacteroids. Wound culture positive for Enterococcus faecium VRE, Enterococcus faecalis VRE and Cha. White count 20.1. Hemoglobin 8.7. Platelets 227. Sodium 135. Potassium 5.8. Bicarb 23. BUN 63. Creatinine 2.46. Glucose 124. She is continued on DuoNeb inhalations, Symbicort, daptomycin and Zosyn. Lovenox for DVT prophylaxis. The patient is seen today September 28, 2023 in follow-up on the regular medical floor. She is currently resting in bed. Awake and alert in no acute distress. Feeling better today compared to yesterday. She is maintaining good O2 saturations in the 90s on 4 L/min per nasal cannula. No IV fluids. She is continued on daptomycin and Zosyn. Chest x-ray reveals right pleural effusion with pulmonary vascular congestion. Left lung is relatively clear. She remains on DuoNeb ventilations, Pulmicort and Perforomist inhalations, Solu-Medrol. Lovenox for DVT prophylaxis. Sodium 131. Potassium 5.1. Bicarb 23. BUN 69. Creatinine 2.68. Glucose 146. She was given Lasix 60 mg IVP x 1. She is currently in a -1.5 L balance. The patient is seen today September 29, 2023 in follow-up on the regular medical floor. She is currently sitting up in bed. Awake and alert in no acute distress. Maintaining good O2 saturations in the 90s on 4 L/min per nasal neida sorin. She is status post 1 unit of packed red blood cells and 2 units of platelets fresh frozen plasma this admission. Abdominal fluid and wound cultures were positive for Enterococcus faecium VRE, Enterococcus faecalis VRE, Cha. White count 17.7. Hemoglobin 7.9. Platelets 233. Sodium 136. Potassium 3.5. Bicarb 27. BUN 33. Creatinine 2.0. Glucose 152. She remains on DuoNeb inhalations, Pulmicort and Perforomist inhalations, Solu-Medrol. Antibiotics in the form of daptomycin and Zosyn. The patient is seen today September 30, 2023 in follow-up on the regular medical floor. She is resting comfortably in bed. Maintaining good O2 saturations in the 90s on 5 L/min per nasal cannula. She is status post 1 unit of packed red blood cells and 2 fresh frozen plasma this admission. Abdominal cultures were positive for Enterococcus faecium and Enterococcus faecalis both VRE. White cou nt 19.6. Hemoglobin 7.5. Platelets 225. INR 1.4. Sodium 137. Potassium 3.8. Bicarb 24. BUN 46. Creatinine 2.6. Glucose 160. She is continued on DuoNeb inhalations, Symbicort, Solu-Medrol. Antibiotics in the form of Zosyn and daptomycin. Lovenox for DVT prophylaxis. Currently on Lasix 60 mg IV every 12 hours. Currently in a -5.9 L balance. The patient is seen today October 01, 2023 in follow-up on the regular medical floor. She is sitting up in bed. Awake and alert in no acute distress. Feeling stronger each day. She is maintaining O2 saturations in the 90s on 4 L/min per nasal cannula. She has been resumed on hemodialysis. She remains on Zosyn and daptomycin. Abdominal cultures were positive for Enterococcus faecium and Enterococcus faecalis both VRE. She remains on DuoNeb inhalations, Symbicort, Solu-Medrol. Remains on Lovenox. White count 23.7. Hemoglobin 8.2. Platelets 238. INR 1.64. Sodium 136. Potassium 4.3. Bicarb 26. BUN 27. Creatinine 1.9. Glucose 140. The patient is seen today October 02, 2023 in follow-up on the regular medical floor. She is sitting up at the bedside. Awake and alert in no acute distress. She has had some issues with dizziness while up. She did receive hemodialysis yesterday with 1.9 L removed. The plan is for hemodialysis again today. She is maintaining good O2 saturations in the 90s on 3.5 L/min per nasal cannula. Normal saline at KVO. She is continued on DuoNeb inhalations, Symbicort, Solu- Medrol. Lovenox for anticoagulation. She remains on daptomycin and Zosyn. Anticoagulated with warfarin. INR 2.0. She remains on Lasix 60 mg every 12 hours. Currently in a -5 L balance. The patient is seen today October 03, 2023 in follow-up on the regular medical floor. She is sitting up at the bedside. Awake and alert in no acute distress. Feeling stronger each day. She maintains a good O2 saturations in the 90s on 3 L/min per nasal cannula. No IV fluids. Chest x-ray continues to small small atelectasis/effusions. Stable. She remains on DuoNeb inhalations, Symbicort, Solu-Medrol. Antibiotics in the form of Zosyn. She remains on Lasix 60 mg IV every 12 hours. Currently in a -5 L balance. Plan is for hemodialysis on Wednesday, October 04, 2023. The patient is seen today October 04, 2023 in follow-up on the regular medical floor. She is awake and alert in no acute distress. Sitting up in bed. Curre ntly receiving hemodialysis. She is maintaining O2 saturations in the 90s 3 L/min per nasal cannula. She has been afebrile. Hemodynamically stable. Her hemoglobin this morning was 6.0. She is to receive a second unit of packed red blood cells. White count 34.6. Platelets 191. INR 4.6. Sodium 135. Potassium 5.0. Bicarb 24. BUN 50. Creatinine 2.7. Abdominal wound cultures were positive for Enterococcus faecium VRE. She remains on DuoNeb inhalations, Symbicort, Solu-Medrol. Antibiotics in the form of daptomycin and Zosyn. The patient is seen today October 05, 2023 in follow-up on the regular medical floor. She is currently resting comfortably in bed. Awake and alert in no acute distress. She is maintaining O2 saturations in the 90s on 3 L/min per nasal cannula. She is receiving a 3rd unit of packed red blood cells today for hemoglobin of 6.7. Platelets 192. White count 29.2. INR 1.1. Abdominal wound cultures were positive for Enterococcus faecium VRE. She remains on DuoNeb inhalations, Symbicort, Solu-Medrol. Antibiotics in the form of daptomycin and Zosyn. She remains on Lasix 60 mg IV every 12 hours. Currently in a -2 L balance. The patient is seen today October 07, 2023 in follow-up on the regular medical floor. He is awake and alert in no acute distress. Resting comfortably in bed. Maintaining O2 saturations in the 90s on 3 L/min per nasal cannula. No new labs today. Abdominal wound cultures were positive for Enterococcus faecium VRE. She remains on DuoNeb inhalations, Symbicort, Solu-Medrol. Antibiotics in the form of daptomycin and Zosyn. Objective - Vital Signs Vital signs: Vital Signs Temp 97.8 F 10/07/23 12:59 Pulse 71 10/07/23 12:59 Resp 16 10/07/23 12:59 BP 147/76 10/07/23 12:59 Pulse Ox 95 10/07/23 12:59 FiO2 35 09/21/23 20:21 Intake & Output 10/06/23 10/07/23 10/07/23 18:59 06:59 18:59 Intake Total 500 450 Output Total 3775 265 155 Balance -3275 -265 295 Weight 60.5 kg Intake: Oral 450 Hemodialysis 500 Output: Drainage 190 80 SILVIO Abdomen 190 80 Stool 275 75 75 Hemodialysis 2000 Hemodialysis Net Amount 1500 Other: Voiding Method Diaper External Catheter External Catheter External Catheter - Exam GENERAL EXAM: Alert, 63-year-old female, resting comfortably in bed, on 3 L/min per nasal cannula, in no apparent distress. HEAD: Normocephalic. EYES: Normal reaction of pupils, equal size. NOSE: Clear with pink turbinates. THROAT: No erythema or exudates. NECK: No masses, no JVD. CHEST: No chest wall deformity. LUNGS: Equal air entry with bibasilar crackles, diminished. CVS: S1 and S2 normal with no audible murmur, regular rhythm. ABDOMEN: Colostomy with stool present. Dressing intact. SPINE: No scoliosis or deformity SKIN: No rashes. Skin tear noted on left hand CENTRAL NERVOUS SYSTEM: No focal deficits, tone is normal in all 4 extremities. EXTREMITIES: There is 1+ peripheral edema. No clubbing, no cyanosis. Peripheral pulses are intact. - Labs CBC & Chem 7: 10/06/23 06:18 10/04/23 05:24 Assessment and Plan Assessment: Acute hypoxemic respiratory failure secondary to an acute exacerbation of chronic obstructive pulmonary disease, acute systolic congestive heart failure Status post exploratory laparotomy, sigmoid colectomy, and end sigmoid colostomy for ruptured sigmoid diverticulum on September 23, 2023. Cultures positive for Enterococcus faecium VRE, Enterococcus faecalis VRE, Cha. Currently on daptomycin Acute kidney injury secondary to ANCA vasculitis and cardiorenal syndrome previously on hemodialysis. Permacath still in place and restarted on hemodialysis 09/28/2023 Leukocytosis Anemia requiring a third unit of packed red blood cells this admission. Current hemoglobin 7.7 Severe cardiomyopathy with an ejection fraction of 25-30 % History of chronic obstructive pulmonary disease Chronic tobacco dependence ANCA vasculitis and was to have had a kidney biopsy in June 2023 unclear if this was done History of PE/DVT, on warfarin Plan: The patient was seen and evaluated Labs and medications reviewed Titrate down the FiO2 as tolerated Continue the current treatment plan The plan is for [facility] at discharge I have personally seen and examined the patient, performed the documentation and the assessment and plan as written. Number of minutes spent on the visit: 10.
--- NOTE | 2023-10-07 16:23 | P.PN ---
Subjective patient is seen for follow-up for acute kidney injury. History of hemodialysis dependent acute kidney injury with recovery of renal function and patient had been off of dialysis for about 3 weeks. Restarted on dialysis this admission due to severe volume overload and worsening renal function. Oxygen requirement decreased but patient remains quite debilitated. There are plans for discharge to subacute rehab. No significant complaints today. Had physical therapy this morning. Objective - Vital Signs Vital signs: Vital Signs Temp 97.8 F 10/07/23 12:59 Pulse 72 10/07/23 15:53 Resp 16 10/07/23 12:59 BP 147/76 10/07/23 12:59 Pulse Ox 95 10/07/23 12:59 FiO2 35 09/21/23 20:21 Intake & Output 10/06/23 10/07/23 10/07/23 18:59 06:59 18:59 Intake Total 500 450 Output Total 3775 265 155 Balance -3275 -265 295 Weight 60.5 kg Intake: Oral 450 Hemodialysis 500 Output: Drainage 190 80 SILVIO Abdomen 190 80 Stool 275 75 75 Hemodialysis 2000 Hemodialysis Net Amount 1500 Other: Voiding Method Diaper External Catheter External Catheter External Catheter - Exam patient is awake, comfortable, mild respiratory distress. 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 Also component of cardiorenal syndrome. Renal function slowly worsening this admission. Creatinine was 1.9 dated September 07, 2023. Patient was hemodialysis dependent but renal function had improved and patient was off of dialysis for about 3 weeks. Restarted hemodialysis on 09/28/2023 due to worsening renal function and volume overload. Ultrasound from June 2023 showed no evidence of hydronephrosis. 2. ANCA vasculitis maintained on prednisone. Status post 2 doses of IV rituximab 1 g completed August 2023. Maintained on 30 mg of prednisone outpatient. Repeat serologies are negative. 3. Acute on chronic systolic CHF ejection fraction of 25 to 30% with severe pulmonary hypertension and moderate tricuspid regurgitation. 4. Acute hypoxic respiratory failure secondary to COPD exacerbation as well as CHF. Some improvement in chest x-ray noted with ultrafiltration with hemodialysi s. 5. History of PE maintained on anticoagulation. 6. Anemia. high ferritin noted. packed RBCs transfusion today. 7. Pneumoperitoneum status post diagnostic laparoscopy, sigmoid colectomy with end colostomy 09/23/2023. 8. Volume overload, improving. Status post UF close to 8 L with hemodialysis. Plan: Continue with torsemide. can switch to oral prednisone Hemodialysis in a.m.
--- NOTE | 2023-10-07 16:25 | P.PN ---
Subjective Progress Note Date: 10/07/23 CHIEF COMPLAINT: Perforated sigmoid diverticulitis HISTORY OF PRESENT ILLNESS: postop day #13 status post diagnostic laparoscopy with sigmoid colectomy and end colostomy. Patient's ostomy is functioning. Patient reports she is feeling better today. She is tolerating diet. Afebrile. No new labs for today PHYSICAL EXAM: VITAL SIGNS: Reviewed. GENERAL: no acute distress. ABDOMEN: Soft. nondistended. Incision site with ecchymosis and likely hematoma. There is some firmness around the middle of the incision. Ostomy with brown stool present. SILVIO drain sanguinous ASSESSMENT: 1. Perforated sigmoid diverticulitis 2. Leukocytosis 3. Anemia 4. Subcutaneous hematoma at incision site PLAN: -Continue to monitor -Continue to hold Coumadin -Continue to monitor hemoglobin -Continue low fiber -Continue antibiotics -Encourage patient to increase activity level Physician Fire Protection Equipment Technician note has been reviewed by physician. Signing provider agrees with the documented findings, assessment, and plan of care. Objective - Vital Signs Vital signs: Vital Signs Temp 97.8 F 10/07/23 12:59 Pulse 72 10/07/23 15:53 Resp 16 10/07/23 12:59 BP 147/76 10/07/23 12:59 Pulse Ox 95 10/07/23 12:59 FiO2 35 09/21/23 20:21 Intake & Output 10/06/23 10/07/23 10/07/23 18:59 06:59 18:59 Intake Total 500 450 Output Total 3775 265 155 Balance -3275 -265 295 Weight 60.5 kg Intake: Oral 450 Hemodialysis 500 Output: Drainage 190 80 SILVIO Abdomen 190 80 Stool 275 75 75 Hemodialysis 1999 Hemodialysis Net Amount 1500 Other: Voiding Method Diaper External Catheter External Catheter External Catheter - Labs CBC & Chem 7: 10/06/23 06:18 10/04/23 05:24
[2023-10-07 16:39] LABS: Basophils # (A) 0.06 X 10*3/uL (0.00-0.10); Basophils % (A) 0.3 %; Eosinophils # (A) 0.01 X 10*3/uL (0.04-0.35); Eosinophils % (A) 0 %; HCT 24.6 % (37.2-46.3); HGB 7.8 g/dL (12.0-15.0); Lymphocytes # (A) 0 X 10*3/uL (0.90-5.00); Lymphocytes % (A) 0 %; MCHC 31.7 g/dL (32.0-37.0); MCV 100.8 FL (80.0-97.0); Mean Platelet Volume 11.6 FL (9.5-12.2); Monocytes % (A) 1.7 %; NRBC Per 100 WBC 3.52 X 10*3/uL (0.00-0.01); Neutrophils # (A) 22.71 X 10*3/uL (1.80-7.70); Neutrophils % (A) 95.3 %; Platelet Count 167 X 10*3/uL (140-440); RBC 2.44 X 10*6/uL (4.10-5.20); Schistocytes 1+; WBC 23.82 X 10*3/uL (4.50-10.00)
--- NOTE | 2023-10-07 18:54 | P.PN ---
Subjective Progress Note Date: 10/07/23 This is a 63-year-old female patient of Dr. Daniels who presented to the ER with concerns of increased shortness of breath. Patient was recently admitted at [facility] last week for similar symptoms but did leave AMA prior to completion of treatment. Patient was alsopatient was also recently admitted recently admitted and transferred to [facility] and transferred to [facility] due to diagnosis of vasculitis and required hemodialysis during the hospital stay patient also had episode of pulmonary embolism in which she was started on Coumadin. Patient recently had hemodialysis catheter DC'd.. Additional medical history includes COPD and ex-smoker. Chest x-ray completed in ER showing COPD with superimposed interstitial opacities possible interstitial pulmonary edema versus atypicalCOPD with superimposed interstitial bases possible interstitial pulmonary edema versus atypical pneumonitis. Lab work revealing BNP level 60,000.. [id number] 0.205, 0.403 and 0.521. Creatinine 1.56 bun 47. White blood cell 27.9 hemoglobin 10.5 . Patient was started on Zithromax and Rocephin. Given dose of IV Lasix. Started on heparin drip for elevated troponins. Cardiology pulmonary and nephrology services consulted. Cardiology pulmonary and nephrology service is consulted. Current vital signs Temp 97.3, heart rate 95, respiratory rate 18, blood pressure 143/88 with a pulse ox of 96% on 2 L. On 09/23/2023 patient was seen and examined on the medical floor she is alert and oriented x 3 in no apparent distress, she started complaining of severe abdominal pain in the bilateral lower quadrants this morning, otherwise she denies any complaints there is no fever or chills no headache or dizziness no chest pain no shortness of breath no cough no nausea or vomiting no diarrhea no blood in the stools no burning with urination no frequency or urgency and no hematuria, CT scan of the abdomen and pelvis without contrast was ordered, will follow closely On 09/24/2023 Patient's alert and oriented 3. Patient is status post diagnostic laparoscopy sigmoid colectomy with end colostomy secondary to perforated sigmoid diverticulitis. Patient is currently postop day 1. Patient was transferred to the intensive care unit postoperatively but has been extubated to 2 L. Patient remains on IV Zosyn. Vertical care, nephrology, surgical, infectious disease service is following. Patient denies chest pain or shortness breath. Patient denies nausea vomiting or diarrhea. Burning or frequency On 09/25/2023 patient was seen and examined on the medical floor, she is alert and oriented x 3 in no apparent distress, there is no fever or chills no headache or dizziness no chest pain no shortness of breath no cough no nausea or vomiting no abdominal pain no diarrhea and no urinary symptoms, patient was noticed by her nurse to have an equal pupils, patient denies any previous knowl edge of abnormal pupil size, CT scan of the brain and neurology consultation will be initiated, hemoglobin today is down to 6.7 and patient will be given 1 unit of red blood cells. On 09/26/2023 patient is alert and oriented x 3. Patient has been tolerating full liquid diet. Patient el on IV Zosyn. Neurology services are following. Current vital signs Temp 98.2, rate 85, respiratory rate 15, blood pressure 151/89 with a pulse ox of 95% on 2 L. Patient denies chest pain or shortness of breath. Patient denies nausea vomiting or diarrhea. Patient denies any urinary burning or frequency. On 09/27/2023 patient was seen and examined on the medical floor, she is alert and oriented x 3 in no distress she denies any symptoms at this time there is no fever or chills, no headache or dizziness no chest pain no shortness of breath no cough no nausea or vomiting no abdominal pain no diarrhea no urinary symptoms On 09/28/2023 patient was seen and examined on the medical floor she is alert and oriented in no apparent distress there is no fever or chills no headache or dizziness no chest pain no shortness of breath no cough no nausea or vomiting no abdominal pain no diarrhea no urinary symptoms multiple specialist input reviewed today will follow in a.m. on 09/29/2023atient is alert and oriented 3. Patient underwent hemodialysis yesterday patient remains on IV steroids at [facility] and Zosyn. White blood cell trending down 17.76.current vital signs temp 97.7, heart rate 84, resp iratory rate 17, blood pressure 157/99 with pulse ox 98% on 4 L on 09/29/2024 patient's alert and oriented 3 patientto have hemodialysis today. Creatinine 2.6 bun 46.3.patient remains on Zosyn, Diflucan and daptomycin. Patient also remains on IV Lasix. Patient maintained on full liquid diet per surgical services. This time patient denies chest pain or shortness of breath. Patient denies nausea vomiting or diarrhea. Patient denies any urinary burning or frequency on 10/01/2023 patient is alert and oriented 3. Patient's diet has been advanced per surgical services. Patient denies chest pain or shortness of breath. Patient denies nausea vomiting or diarrhea. Patient denies any urinary burning or frequency.white blood cell increasing to 23. Patient remains on IV Zosyn, daptomycin and Diflucan. Infectious disease services are following.current vital signs temp 97.5, heart rate 75, respiratory rate 18, blood pressure 158/89 with pulse ox 97% on 4 L On 10/02/2023 patient was seen and examined on the medical floor she is alert and oriented x 3 in no apparent distress there is no fever or chills no headache or dizziness no chest pain no shortness of breath no cough no nausea or vomiting no abdominal pain no diarrhea and no urinary symptoms. Currently she is receiving hemodialysis will continue with current management will follow closely On 10/03/2023 patient is alert and oriented x 3. Patient reports she just does not feel too well today. Current current vital signs Temp 97.5, heart rate 79, respiratory rate 17, blood pressure 118/76 with pulse ox of 99% on 3 L. Lab work currently pending. Patient denies chest pain or shortness of breath. Patient denies nausea vomiting or diarrhea. Patient denies any urinary burning or frequency. Patient has been tolerating low fiber diet. On 10/04/2023 patient was seen and examined on the medical floor she is alert and oriented x 3 in no apparent distress she is complaining of generalized fatigue otherwise she denies any complaints there is no fever or chills no headache or dizziness no chest pain no shortness of breath no cough no nausea or vomiting no abdominal pain no diarrhea no urinary symptoms, hemoglobin today is down to 6.0, 1 unit of red blood cell transfusion was ordered, patient is followed by nephrology and is scheduled for hemodialysis today. On 10/05/19 2patient's alert and oriented 3. Hemoglobin 6.7 and additional unit of PRBCs has been ordered. per surgical services concerns of possible hematoma. Computed tomography scan of abdomen has been ordered.white blood cell also elevated at 34. Infectious disease services are following. Current vital signs temp 91, heart rate 72, respiratory rate 17, blood pressure 137/81 with a pulse ox of 97% on 3 L On 10/06/2023 patient is alert and oriented 3. hemoglobin 7.7, white blood cell 24.1. Patient currently getting hemodialysis. CT of abdomen and pelvis was completed awaiting results per surgical services concerns about possible hematoma. Patient remains on IV daptomycin and Zosyn. Patient denies chest pain or shortness breath. Patient denies nausea vomiting or diarrhea. Patient denies any urinary burning or frequency On 10/07/2023 patient was seen and examined on the medical floor she is alert and oriented in no apparent distress, she denies any complaints at this time vital exam reveals a temperature of 97.8 pulse 71 respirations 16 blood pressure 147/76 pulse ox 95% on 3 L nasal cannula, white blood count is 23.8 hemoglobin 7.8 platelet count 167, abdominal wound culture is positive for Enterococcus faecium and Enterococcus faecalis VRE and Cha albicans, Dr. Benton infectious disease following, currently maintained on daptomycin, will continue to follow closely Objective - Vital Signs Vital signs: Vital Signs Temp 97.8 F 10/07/23 12:59 Pulse 72 10/07/23 15:53 Resp 16 10/07/23 12:59 BP 147/76 10/07/23 12:59 Pulse Ox 95 10/07/23 12:59 FiO2 35 09/21/23 20:21 Intake & Output 10/06/23 10/07/23 10/07/23 18:59 06:59 18:59 Intake Total 500 700 Output Total 8715 265 455 Balance -9825 -265 245 Weight 60.5 kg Intake: Oral 700 Hemodialysis 500 Output: Drainage 190 80 SILVIO Abdomen 190 80 Urine 300 Stool 275 75 75 Hemodialysis 2000 Hemodialysis Net Amount 1500 Other: Voiding Method Diaper External Catheter External Catheter External Catheter - Exam Physical examHead normocephalic Neck supple Lungs diminished bilaterally Heart regular rate and rhythm S1-S2, no rub or gallop Abdomen is soft with mild diffuse tenderness especially in the pelvic area bilaterally no organomegaly no palpable masses Extremities no edema Neuro alert and orientated to 3 - Labs CBC & Chem 7: 10/07/23 09:37 10/04/23 05:24 Labs: Abnormal Lab Results - Last 24 Hours (Table) 10/07/23 Range/Units 09:37 WBC 23.82 H (4.50-10.00) X 10*3/uL RBC 2.44 L (4.10-5.20) X 10*6/uL Hgb 7.8 L (12.0-15.0) g/dL Hct 24.6 L (37.2-46.3) % MCV 100.8 H (80.0-97.0) FL MCHC 31.7 L (32.0-37.0) g/dL RDW 23.0 H (11.5-14.5) % Immature Gran # 0.64 H (0.00-0.04) X 10*3/uL Neutrophils # 22.71 H (1.80-7.70) X 10*3/uL Lymphocytes # 0 L (0.90-5.00) X 10*3/uL Eosinophils # 0.01 L (0.04-0.35) X 10*3/uL NRBC/100 WBC Diff 3.52 H (0.00-0.01) X 10*3/uL Schistocytes 1+ A Assessment and Plan Assessment: Acute hypoxic respiratory failure secondary to acute exacerbation of COPD and acute systolic congestive heart failure Acute exacerbation of COPD. Patient started on IV steroids Acute systolic congestive heart failure Perforated sigmoid diverticulitis status post sigmoid colectomy with end colostomy on 09/23/2023 Elevated troponins, likely related to renal failure, seen by cardiology no intervention recommended at this time Acute on chronic kidney disease Recent diagnosis of vasculitis at [facility] Recent history of PE/DVT maintained on Coumadin History of cardiomyopathy with EF of 15 to 20% History of tobacco abuse recently quit Unequal pupil size. Neurology service is following Concerns for possible hematoma per surgical services patient to receive a third unit of PRBCs computed tomography scan of abdomen ordered DVT prophylaxis lovenox. GI prophylaxis Protonix Pulmonary, cardiology and nephrology services consulted Patient started on IV steroids and IV antibiotics patient started back on hemodialysis
--- NOTE | 2023-10-07 21:07 | P.PN ---
Subjective Progress Note Date: 10/07/23 Principal diagnosis: Reason for follow-up is perforated diverticulitis Patient is a 63-year-old female past medical history significant for COPD vasculitis history of acute kidney injury secondary to ANCA vasculitis presenting to the hospital with shortness of breath and abdominal pain has been diagnosed with a perforated sigmoid diverticulitis in this patient who is status post diagnostic laparoscopic sigmoid colectomy with end colostomy. On today's evaluation that is 10/07/2023, Patient is afebrile this morning patient denies having any chest pain shortness of breath or cough, the patient is breathing comfortably and currently on 3 L current oxygen, patient denies any abdominal pain no diarrhea no nausea no vomiting. Patient white count is 23.82 creatinine is 2.7 Objective - Vital Signs Vital signs: Vital Signs Temp 97.8 F 10/07/23 12:59 Pulse 72 10/07/23 15:53 Resp 16 10/07/23 12:59 BP 147/76 10/07/23 12:59 Pulse Ox 95 10/07/23 12:59 FiO2 35 09/21/23 20:21 Intake & Output 10/07/23 10/07/23 10/08/23 06:59 18:59 06:59 Intake Total 700 Output Total 265 455 200 Balance -265 245 -200 Weight 60.5 kg Intake: Oral 700 Output: Drainage 190 80 200 SILVIO Abdomen 190 80 200 Urine 300 Stool 75 75 Other: Voiding Method External Catheter External Catheter - Exam GENERAL DESCRIPTION: Middle-aged female lying in bed in no distress RESPIRATORY SYSTEM: Unlabored breathing , decreased breath sounds at bases HEART: S1 S2 regular rate and rhythm , ABDOMEN: Soft , patient did have some bruising around her incision no drainage was noticed EXTREMITIES: No edema feet - Labs CBC & Chem 7: 10/07/23 09:37 10/04/23 05:24 Labs: Abnormal Lab Results - Last 24 Hours (Table) 10/07/23 Range/Units 09:37 WBC 23.82 H (4.50-10.00) X 10*3/uL RBC 2.44 L (4.10-5.20) X 10*6/uL Hgb 7.8 L (12.0-15.0) g/dL Hct 24.6 L (37.2-46.3) % MCV 100.8 H (80.0-97.0) FL MCHC 31.7 L (32.0-37.0) g/dL RDW 23.0 H (11.5-14.5) % Immature Gran # 0.64 H (0.00-0.04) X 10*3/uL Neutrophils # 22.71 H (1.80-7.70) X 10*3/uL Lymphocytes # 0 L (0.90-5.00) X 10*3/uL Eosinophils # 0.01 L (0.04-0.35) X 10*3/uL NRBC/100 WBC Diff 3.52 H (0.00-0.01) X 10*3/uL Schistocytes 1+ A Assessment and Plan (1) Perforation of sigmoid colon due to diverticulitis Current Visit: Yes Status: Acute Code(s): K57.20 - DVTRCLI OF LG INT W PERFORATION AND ABSCESS W/O BLEEDING SNOMED Code(s): 5179278989497091 (2) Peritonitis Current Visit: Yes Status: Acute Code(s): K65.9 - PERITONITIS, UNSPECIFIED SNOMED Code(s): 36131537 (3) Leukocytosis Current Visit: No Status: Acute Code(s): D72.829 - ELEVATED WHITE BLOOD CELL COUNT, UNSPECIFIED SNOMED Code(s): 040588449 (4) Sepsis Current Visit: Yes Status: Acute Code(s): A41.9 - SEPSIS, UNSPECIFIED ORGANISM SNOMED Code(s): 24988233 Plan: 1patient presented to the hospital with sepsis in this patient who did have a fever tachycardia meeting criteria for SIRS source is likely perforated dive rticulitis with peritonitis and need to cover for the enteric gram-negative both aerobes and anaerobes patient also have complaint of increasing shortness of breath and cough CT shows bilateral lower lobe consolidation, possible pneumonia 2-patient is status post diagnostic laparoscopy sigmoid resection and end colostomy abdominal culture currently growing Enterococcus faecium and faecalis and Cha 3-patient is afebrile , patient white count is trending down patient did have abdominal pelvis CT yesterday which did show some fluid collection with a drainage catheter in SILVIO drain is mostly pulling out bloodstained secretion likely representing hematoma 4-patient to continue with Zosyn, daptomycin and Diflucan while inpatient, and monitor clinical course closely Dictation was produced using dragon dictation software. please excuse any grammatical, word or spelling errors. Time with Patient: Less than 30
[2023-10-08] MEDS: hydrALAZINE HCL 20 MG/ML 1 ML VIAL IVP PRN (06:33)
[2023-10-08 08:38] LABS: Basophils # (A) 0.04 X 10*3/uL (0.00-0.10); Basophils % (A) 0.2 %; Eosinophils # (A) 0.01 X 10*3/uL (0.04-0.35); Eosinophils % (A) 0 %; HCT 23.4 % (37.2-46.3); HGB 7.4 g/dL (12.0-15.0); Lymphocytes # (A) 0 X 10*3/uL (0.90-5.00); Lymphocytes % (A) 0 %; MCH 31.8 pg (27.0-32.0); MCHC 31.6 g/dL (32.0-37.0); MCV 100.4 FL (80.0-97.0); Mean Platelet Volume 11.2 FL (9.5-12.2); Monocytes # (A) 0.29 X 10*3/uL (0.20-1.00); Monocytes % (A) 1.3 %; NRBC Per 100 WBC 1.17 X 10*3/uL (0.00-0.01); Neutrophils # (A) 21.09 X 10*3/uL (1.80-7.70); Platelet Count 144 X 10*3/uL (140-440); RBC 2.33 X 10*6/uL (4.10-5.20); RDW 23.4 % (11.5-14.5); WBC 21.98 X 10*3/uL (4.50-10.00)
[2023-10-08 08:48] LABS: ALT 26 U/L (8-44); AST 33 U/L (13-35); Albumin 2.8 g/dL (3.8-4.9); Alkaline Phosphatase 74 U/L (41-126); BUN/Creat Ratio 17.38 Ratio (12.00-20.00); Blood Urea Nitrogen 41.7 mg/dL (9.0-27.0); Calcium 8.1 mg/dL (8.7-10.3); Chloride 98 mmol/L (96-109); Globulin 1.4 g/dL (1.6-3.3); Glucose 135 mg/dL (70-110); Potassium 4.1 mmol/L (3.5-5.5); Sodium 136 mmol/L (135-145); Total Bilirubin 0.4 mg/dL (0.3-1.2); Total Protein 4.2 g/dL (6.2-8.2)
--- NOTE | 2023-10-08 09:19 | XR ---
EXAMINATION TYPE: XR chest 1V portable DATE OF EXAM: 10/08/2023 9:15 AM CLINICAL INDICATION:Female, 63 years old with history of Shortness of breath; [facility] COMPARISON: Chest radiographs from 10/03/2023 TECHNIQUE: XR chest 1V portable Frontal view of the chest. FINDINGS: Lungs/Pleura: There is flattening of the diaphragm with increased lucency of the lungs. No evidence o f pneumothorax, pleural effusion or focal consolidation. Pulmonary vascularity: Unremarkable. Heart/mediastinum: Cardiomediastinal silhouette is unremarkable. Musculoskeletal: No acute osseous pathology. Other findings: None Lines/Tubes: Right internal jugular central venous catheter with distal tip at the cavoatrial junction. IMPRESSION: 1. No acute cardiopulmonary disease process. 2. COPD changes.
[2023-10-08] MEDS: FUROSEMIDE 10 MG/ML 4 ML VIAL IV STA (09:45)
--- NOTE | 2023-10-08 10:31 | P.PN ---
Subjective Progress Note Date: 10/08/23 This is a 63-year-old female patient of Dr. Daniels who presented to the ER with concerns of increased shortness of breath. Patient was recently admitted at [facility] last week for similar symptoms but did leave AMA prior to completion of treatment. Patient was alsopatient was also recently admitted recently admitted and transferred to [facility] and transferred to [facility] due to diagnosis of vasculitis and required hemodialysis during the hospital stay patient also had episode of pulmonary embolism in which she was started on Coumadin. Patient recently had hemodialysis catheter DC'd.. Additional medical history includes COPD and ex-smoker. Chest x-ray completed in ER showing COPD with superimposed interstitial opacities possible interstitial pulmonary edema versus atypicalCOPD with superimposed interstitial bases possible interstitial pulmonary edema versus atypical pneumonitis. Lab work revealing BNP level 60,000.. [id number] 0.205, 0.403 and 0.521. Creatinine 1.56 bun 47. White blood cell 27.9 hemoglobin 10.5 . Patient was started on Zithromax and Rocephin. Given dose of IV Lasix. Started on heparin drip for elevated troponins. Cardiology pulmonary and nephrology services consulted. Cardiology pulmonary and nephrology service is consulted. Current vital signs Temp 97.3, heart rate 95, respiratory rate 18, blood pressure 143/88 with a pulse ox of 96% on 2 L. On 09/23/2023 patient was seen and examined on the medical floor she is alert and oriented x 3 in no apparent distress, she started complaining of severe abdominal pain in the bilateral lower quadrants this morning, otherwise she denies any complaints there is no fever or chills no headache or dizziness no chest pain no shortness of breath no cough no nausea or vomiting no diarrhea no blood in the stools no burning with urination no frequency or urgency and no hematuria, CT scan of the abdomen and pelvis without contrast was ordered, will follow closely On 09/24/2023 Patient's alert and oriented 3. Patient is status post diagnostic laparoscopy sigmoid colectomy with end colostomy secondary to perforated sigmoid diverticulitis. Patient is currently postop day 1. Patient was transferred to the intensive care unit postoperatively but has been extubated to 2 L. Patient remains on IV Zosyn. Vertical care, nephrology, surgical, infectious disease service is following. Patient denies chest pain or shortness breath. Patient denies nausea vomiting or diarrhea. Burning or frequency On 09/25/2023 patient was seen and examined on the medical floor, she is alert and oriented x 3 in no apparent distress, there is no fever or chills no headache or dizziness no chest pain no shortness of breath no cough no nausea or vomiting no abdominal pain no diarrhea and no urinary symptoms, patient was noticed by her nurse to have an equal pupils, patient denies any previous knowl edge of abnormal pupil size, CT scan of the brain and neurology consultation will be initiated, hemoglobin today is down to 6.7 and patient will be given 1 unit of red blood cells. On 09/26/2023 patient is alert and oriented x 3. Patient has been tolerating full liquid diet. Patient el on IV Zosyn. Neurology services are following. Current vital signs Temp 98.2, rate 85, respiratory rate 15, blood pressure 151/89 with a pulse ox of 95% on 2 L. Patient denies chest pain or shortness of breath. Patient denies nausea vomiting or diarrhea. Patient denies any urinary burning or frequency. On 09/27/2023 patient was seen and examined on the medical floor, she is alert and oriented x 3 in no distress she denies any symptoms at this time there is no fever or chills, no headache or dizziness no chest pain no shortness of breath no cough no nausea or vomiting no abdominal pain no diarrhea no urinary symptoms On 09/28/2023 patient was seen and examined on the medical floor she is alert and oriented in no apparent distress there is no fever or chills no headache or dizziness no chest pain no shortness of breath no cough no nausea or vomiting no abdominal pain no diarrhea no urinary symptoms multiple specialist input reviewed today will follow in a.m. on 09/29/2023atient is alert and oriented 3. Patient underwent hemodialysis yesterday patient remains on IV steroids at [facility] and Zosyn. White blood cell trending down 17.76.current vital signs temp 97.7, heart rate 84, resp iratory rate 17, blood pressure 157/99 with pulse ox 98% on 4 L on 09/29/2024 patient's alert and oriented 3 patientto have hemodialysis today. Creatinine 2.6 bun 46.3.patient remains on Zosyn, Diflucan and daptomycin. Patient also remains on IV Lasix. Patient maintained on full liquid diet per surgical services. This time patient denies chest pain or shortness of breath. Patient denies nausea vomiting or diarrhea. Patient denies any urinary burning or frequency on 10/01/2023 patient is alert and oriented 3. Patient's diet has been advanced per surgical services. Patient denies chest pain or shortness of breath. Patient denies nausea vomiting or diarrhea. Patient denies any urinary burning or frequency.white blood cell increasing to 23. Patient remains on IV Zosyn, daptomycin and Diflucan. Infectious disease services are following.current vital signs temp 97.5, heart rate 75, respiratory rate 18, blood pressure 158/89 with pulse ox 97% on 4 L On 10/02/2023 patient was seen and examined on the medical floor she is alert and oriented x 3 in no apparent distress there is no fever or chills no headache or dizziness no chest pain no shortness of breath no cough no nausea or vomiting no abdominal pain no diarrhea and no urinary symptoms. Currently she is receiving hemodialysis will continue with current management will follow closely On 10/03/2023 patient is alert and oriented x 3. Patient reports she just does not feel too well today. Current current vital signs Temp 97.5, heart rate 79, respiratory rate 17, blood pressure 118/76 with pulse ox of 99% on 3 L. Lab work currently pending. Patient denies chest pain or shortness of breath. Patient denies nausea vomiting or diarrhea. Patient denies any urinary burning or frequency. Patient has been tolerating low fiber diet. On 10/04/2023 patient was seen and examined on the medical floor she is alert and oriented x 3 in no apparent distress she is complaining of generalized fatigue otherwise she denies any complaints there is no fever or chills no headache or dizziness no chest pain no shortness of breath no cough no nausea or vomiting no abdominal pain no diarrhea no urinary symptoms, hemoglobin today is down to 6.0, 1 unit of red blood cell transfusion was ordered, patient is followed by nephrology and is scheduled for hemodialysis today. On 10/05/19 2patient's alert and oriented 3. Hemoglobin 6.7 and additional unit of PRBCs has been ordered. per surgical services concerns of possible hematoma. Computed tomography scan of abdomen has been ordered.white blood cell also elevated at 34. Infectious disease services are following. Current vital signs temp 91, heart rate 72, respiratory rate 17, blood pressure 137/81 with a pulse ox of 97% on 3 L On 10/06/2023 patient is alert and oriented 3. hemoglobin 7.7, white blood cell 24.1. Patient currently getting hemodialysis. CT of abdomen and pelvis was completed awaiting results per surgical services concerns about possible hematoma. Patient remains on IV daptomycin and Zosyn. Patient denies chest pain or shortness breath. Patient denies nausea vomiting or diarrhea. Patient denies any urinary burning or frequency On 10/07/2023 patient was seen and examined on the medical floor she is alert and oriented in no apparent distress, she denies any complaints at this time vital exam reveals a temperature of 97.8 pulse 71 respirations 16 blood pressure 147/76 pulse ox 95% on 3 L nasal cannula, white blood count is 23.8 hemoglobin 7.8 platelet count 167, abdominal wound culture is positive for Enterococcus faecium and Enterococcus faecalis VRE and Cha albicans, Dr. Benton infectious disease following, currently maintained on daptomycin, will continue to follow closely On 10/08/2023 patient's alert and oriented 3.patient apparently had episode of increased congestion and shortness of breath this a.m. but reports that she had immediate relief after blowing her nose. Patient to get hemodialysis. At this time patient denies chest pain or shortness of breath. Patient denies nausea vomiting or diarrhea. Patient denies any urinary burning or frequency. Current vital signs temp 97.4, her 82, respiratory rate 17, blood pressure 139/70 with pulse ox 97% on 3 Lpatient will likely need ECF upon discharge PT OT service is consulted Objective - Vital Signs Vital signs: Vital Signs Temp 97.4 F L 10/08/23 07:09 Pulse 73 10/08/23 07:44 Resp 17 10/08/23 07:09 BP 139/70 10/08/23 07:09 Pulse Ox 97 10/08/23 07:34 FiO2 35 09/21/23 20:21 Intake & Output 10/07/23 10/08/23 10/08/23 18:59 06:59 18:59 Intake Total 700 Output Total 455 320 Balance 245 -320 Weight 60 kg Intake: Oral 700 Output: Drainage 80 320 SILVIO Abdomen 80 320 Urine 300 Stool 75 Other: Voiding Method External Catheter External Catheter # Voids 1 - Exam Physical examHead normocephalic Neck supple Lungs diminished bilaterally Heart regular rate and rhythm S1-S2, no rub or gallop Abdomen is soft with mild diffuse tenderness especially in the pelvic area bilaterally no organomegaly no palpable masses Extremities no edema Neuro alert and orientated to 3 - Labs CBC & Chem 7: 10/08/23 04:58 10/08/23 04:58 Labs: Abnormal Lab Results - Last 24 Hours (Table) 10/06/23 10/07/23 10/08/23 Range/Units 15:29 09:37 04:58 WBC 23.82 H 21.98 H (4.50-10.00) X 10*3/uL RBC 2.44 L 2.33 L (4.10-5.20) X 10*6/uL Hgb 7.8 L 7.4 L (12.0-15.0) g/dL Hct 24.6 L 23.4 L (37.2-46.3) % MCV 100.8 H 100.4 H (80.0-97.0) FL MCHC 31.7 L 31.6 L (32.0-37.0) g/dL RDW 23.0 H 23.4 H (11.5-14.5) % Immature Gran # 0.64 H 0.55 H (0.00-0.04) X 10*3/uL Neutrophils # 22.71 H 21.09 H (1.80-7.70) X 10*3/uL Lymphocytes # 0 L 0 L (0.90-5.00) X 10*3/uL Eosinophils # 0.01 L 0.01 L (0.04-0.35) X 10*3/uL NRBC/100 WBC Diff 3.52 H 1.17 H (0.00-0.01) X 10*3/uL Schistocytes 1+ A Anion Gap (4.00-12.00) mmol/L BUN (9.0-27.0) mg/dL Creatinine (0.6-1.5) mg/dL Est GFR (CKD-EPI) (>=60) Glucose (70-110) mg/dL Calcium (8.7-10.3) mg/dL Total Protein (6.2-8.2) g/dL Albumin (3.8-4.9) g/dL Globulin (1.6-3.3) g/dL Tot Complement (CH50) >97 H (42 - 95) U/mL 10/08/23 Range/Units 04:58 WBC (4.50-10.00) X 10*3/uL RBC (4.10-5.20) X 10*6/uL Hgb (12.0-15.0) g/dL Hct (37.2-46.3) % MCV (80.0-97.0) FL MCHC (32.0-37.0) g/dL RDW (11.5-14.5) % Immature Gran # (0.00-0.04) X 10*3/uL Neutrophils # (1.80-7.70) X 10*3/uL Lymphocytes # (0.90-5.00) X 10*3/uL Eosinophils # (0.04-0.35) X 10*3/uL NRBC/100 WBC Diff (0.00-0.01) X 10*3/uL Schistocytes Anion Gap 14.00 H (4.00-12.00) mmol/L BUN 41.7 H (9.0-27.0) mg/dL Creatinine 2.4 H (0.6-1.5) mg/dL Est GFR (CKD-EPI) 22 L (>=60) Glucose 135 H (70-110) mg/dL Calcium 8.1 L (8.7-10.3) mg/dL Total Protein 4.2 L (6.2-8.2) g/dL Albumin 2.8 L (3.8-4.9) g/dL Globulin 1.4 L (1.6-3.3) g/dL Tot Complement (CH50) (42 - 95) U/mL Assessment and Plan Assessment: Acute hypoxic respiratory failure secondary to acute exacerbation of COPD and acute systolic congestive heart failure Acute exacerbation of COPD. Patient started on IV steroids Acute systolic congestive heart failure Perforated sigmoid diverticulitis status post sigmoid colectomy with end colostomy on 09/23/2023 Elevated troponins, likely related to renal failure, seen by cardiology no intervention recommended at this time Acute on chronic kidney disease Recent diagnosis of vasculitis at [facility] Recent history of PE/DVT maintained on Coumadin History of cardiomyopathy with EF of 15 to 20% History of tobacco abuse recently quit Unequal pupil size. Neurology service is following Concerns for possible hematoma per surgical services patient to receive a third unit of PRBCs computed tomography scan of abdomen ordered DVT prophylaxis lovenox. GI prophylaxis Protonix Pulmonary, cardiology and nephrology services consulted Patient started on IV steroids and IV antibiotics patient started back on hemodialysis
--- NOTE | 2023-10-08 12:40 | P.PN ---
Subjective Patient is seen for follow-up for acute kidney injury. History of hemodialysis dependent acute kidney injury with recovery of renal function and patient had been off of dialysis for about 3 weeks. Restarted on dialysis this admission due to severe volume overload and worsening renal function. Oxygen requirement decreased but patient remains quite debilitated. There are plans for discharge to subacute rehab. Patient complained of shortness of breath this morning and received IV push Lasix. It appears that her breathing improved once her nasal congestion improved. Patient is seen on hemodialysis. She is tolerating her treatment well. Objective - Vital Signs Vital signs: Vital Signs Temp 97.4 F L 10/08/23 07:09 Pulse 70 10/08/23 12:24 Resp 20 10/08/23 10:30 BP 139/70 10/08/23 07:09 Pulse Ox 97 10/08/23 07:34 FiO2 35 09/21/23 20:21 Intake & Output 10/07/23 10/08/23 10/08/23 18:59 06:59 18:59 Intake Total 700 200 Output Total 455 320 195 Balance 245 -320 5 Weight 60 kg Intake: Oral 700 200 Output: Drainage 80 320 120 SILVIO Abdomen 80 320 120 Urine 300 Stool 75 75 Other: Voiding Method External Catheter External Catheter External Catheter # Voids 1 - Exam patient is awake, comfortable, mild respiratory distress. Examination of the heart S1 and S2 Examination of the lungs bilateral breath sounds are heard Abdomen is soft ,mild tenderness, drain noted Examination of lower extremities shows no edema ENVIRONMENTAL ANALYST exam grossly intact - Labs CBC & Chem 7: 10/08/23 04:58 10/08/23 04:58 Labs: Abnormal Lab Results - Last 24 Hours (Table) 10/06/23 10/07/23 10/08/23 Range/Units 15:29 09:37 04:58 WBC 23.82 H 21.98 H (4.50-10.00) X 10*3/uL RBC 2.44 L 2.33 L (4.10-5.20) X 10*6/uL Hgb 7.8 L 7.4 L (12.0-15.0) g/dL Hct 24.6 L 23.4 L (37.2-46.3) % MCV 100.8 H 100.4 H (80.0-97.0) FL MCHC 31.7 L 31.6 L (32.0-37.0) g/dL RDW 23.0 H 23.4 H (11.5-14.5) % Immature Gran # 0.64 H 0.55 H (0.00-0.04) X 10*3/uL Neutrophils # 22.71 H 21.09 H (1.80-7.70) X 10*3/uL Lymphocytes # 0 L 0 L (0.90-5.00) X 10*3/uL Eosinophils # 0.01 L 0.01 L (0.04-0.35) X 10*3/uL NRBC/100 WBC Diff 3.52 H 1.17 H (0.00-0.01) X 10*3/uL Schistocytes 1+ A Anion Gap (4.00-12.00) mmol/L BUN (9.0-27.0) mg/dL Creatinine (0.6-1.5) mg/dL Est GFR (CKD-EPI) (>=60) Glucose (70-110) mg/dL Calcium (8.7-10.3) mg/dL Total Protein (6.2-8.2) g/dL Albumin (3.8-4.9) g/dL Globulin (1.6-3.3) g/dL Tot Complement (CH50) >97 H (42 - 95) U/mL 10/08/23 Range/Units 04:58 WBC (4.50-10.00) X 10*3/uL RBC (4.10-5.20) X 10*6/uL Hgb (12.0-15.0) g/dL Hct (37.2-46.3) % MCV (80.0-97.0) FL MCHC (32.0-37.0) g/dL RDW (11.5-14.5) % Immature Gran # (0.00-0.04) X 10*3/uL Neutrophils # (1.80-7.70) X 10*3/uL Lymphocytes # (0.90-5.00) X 10*3/uL Eosinophils # (0.04-0.35) X 10*3/uL NRBC/100 WBC Diff (0.00-0.01) X 10*3/uL Schistocytes Anion Gap 14.00 H (4.00-12.00) mmol/L BUN 41.7 H (9.0-27.0) mg/dL Creatinine 2.4 H (0.6-1.5) mg/dL Est GFR (CKD-EPI) 22 L (>=60) Glucose 135 H (70-110) mg/dL Calcium 8.1 L (8.7-10.3) mg/dL Total Protein 4.2 L (6.2-8.2) g/dL Albumin 2.8 L (3.8-4.9) g/dL Globulin 1.4 L (1.6-3.3) g/dL Tot Complement (CH50) (42 - 95) U/mL Assessment and Plan Assessment: 1. 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 Also component of cardiorenal syndrome. Renal function slowly worsening this admission. Creatinine was 1.9 dated September 07, 2023. Patient was hemodialysis dependent but renal function had improved and patient was off of dialysis for about 3 weeks. Restarted hemodialysis on 09/28/2023 due to worsening renal function and volume overload. Ultrasound from June 2023 showed no evidence of hydronephrosis. 2. ANCA vasculitis maintained on prednisone. Status post 2 doses of IV rituximab 1 g completed August 2023. Maintained on 30 mg of prednisone outpatient. Repeat serologies are negative. 3. Acute on chronic systolic CHF ejection fraction of 25 to 30% with severe pulmonary hypertension and moderate tricuspid regurgitation. 4. Acute hypoxic respiratory failure secondary to COPD exacerbation as well as CHF. Some improvement in chest x-ray noted with ultrafiltration with hemodialysis. 5. History of PE maintained on anticoagulation. 6. Anemia. high ferritin noted. packed RBCs transfusion today. 7. Pneumoperitoneum status post diagnostic laparoscopy, sigmoid colectomy with end colostomy 09/23/2023. 8. Volume overload, improving. Status post UF close to 8 L with hemodialysis. Plan: Continue with torsemide. can switch to oral prednisone Hemodialysis on Wednesday schedule.
--- NOTE | 2023-10-08 14:02 | P.PN ---
Subjective Progress Note Date: 10/08/23 This is a 63-year-old female patient with a known history of chronic obstructive pulmonary disease, former smoker, previous acute kidney injury requiring dialysis that she completed approximately 2 weeks ago. She presented here to the emergency room today with increasing shortness of breath. Symptoms started just this morning. No fever or chills. No cough or congestion. Mainly dyspnea on minimal exertion. Chest x-ray reveals evidence of COPD with superimposed interstitial opacities, possible pulmonary edema versus atypical pneumonia. White count 27.9. Hemoglobin 10.5. Platelets 294. INR 1.3. Sodium 136. Potassium 4.3. Bicarb 30. BUN 47. Creatinine 1.56. Glucose 196. Troponin 0.205. proBNP 60,000. The patient is seen in consultation in the emergency department. She is currently sitting up on the stretcher. Awake and alert. On BiPAP 14/5 and 40% FiO2 to maintain O2 saturations in the 90s. Been initiated on a heparin drip. Initiated on antibiotics, bronchodilators and steroids. The patient is seen today September 22, 2023 in follow-up in the emergency department. She is awake and alert in no acute distress. Breathing easier today compared to yesterday. She is maintaining good O2 saturations in the 90s on 2 L/min per nasal cannula. She has been off the BiPAP. She remains on a heparin drip. Peak troponin 0.521. She is continued on DuoNeb inhalations, Symbicort, Solu-Medrol. She is continued on ceftriaxone. Chest x-ray shows diffuse interstitial opacities with slight improvement. The patient is seen today September 27, 2023 in follow-up on the regular medical [facility] or. She is currently sitting up in a chair. Awake and alert in no acute distress. She is still receiving oxygen at 6 L/min per nasal cannula. Lactated Ringer's at 75 MLS per hour. She did have an episode of shortness of breath and anxiety last evening. She states she is feeling better today. X-ray reveals evidence of fluid volume overload. No focal consolidation, pneumothorax or pleural effusion. Right internal jugular catheter in place. She is status post 1 unit of packed red blood cells and 2 units of fresh frozen plasma this admission. Abdominal fluid cultures were positive for bacteroids. Wound culture positive for Enterococcus faecium VRE, Enterococcus faecalis VRE and Cha. White count 20.1. Hemoglobin 8.7. Platelets 227. Sodium 135. Potassium 5.8. Bicarb 23. BUN 63. Creatinine 2.46. Glucose 124. She is continued on DuoNeb inhalations, Symbicort, daptomycin and Zosyn. Lovenox for DVT prophylaxis. The patient is seen today September 28, 2023 in follow-up on the regular medical floor. She is currently resting in bed. Awake and alert in no acute distress. Feeling better today compared to yesterday. She is maintaining good O2 saturations in the 90s on 4 L/min per nasal cannula. No IV fluids. She is continued on daptomycin and Zosyn. Chest x-ray reveals right pleural effusion with pulmonary vascular congestion. Left lung is relatively clear. She remains on DuoNeb ventilations, Pulmicort and Perforomist inhalations, Solu-Medrol. Lovenox for DVT prophylaxis. Sodium 131. Potassium 5.1. Bicarb 23. BUN 69. Creatinine 2.68. Glucose 146. She was given Lasix 60 mg IVP x 1. She is currently in a -1.5 L balance. The patient is seen today September 29, 2023 in follow-up on the regular medical floor. She is currently sitting up in bed. Awake and alert in no acute distress. Maintaining good O2 saturations in the 90s on 4 L/min per nasal neida sorin. She is status post 1 unit of packed red blood cells and 2 units of platelets fresh frozen plasma this admission. Abdominal fluid and wound cultures were positive for Enterococcus faecium VRE, Enterococcus faecalis VRE, Cha. White count 17.7. Hemoglobin 7.9. Platelets 233. Sodium 136. Potassium 3.5. Bicarb 27. BUN 33. Creatinine 2.0. Glucose 152. She remains on DuoNeb inhalations, Pulmicort and Perforomist inhalations, Solu-Medrol. Antibiotics in the form of daptomycin and Zosyn. The patient is seen today September 30, 2023 in follow-up on the regular medical floor. She is resting comfortably in bed. Maintaining good O2 saturations in the 90s on 5 L/min per nasal cannula. She is status post 1 unit of packed red blood cells and 2 fresh frozen plasma this admission. Abdominal cultures were positive for Enterococcus faecium and Enterococcus faecalis both VRE. White cou nt 19.6. Hemoglobin 7.5. Platelets 225. INR 1.4. Sodium 137. Potassium 3.8. Bicarb 24. BUN 46. Creatinine 2.6. Glucose 160. She is continued on DuoNeb inhalations, Symbicort, Solu-Medrol. Antibiotics in the form of Zosyn and daptomycin. Lovenox for DVT prophylaxis. Currently on Lasix 60 mg IV every 12 hours. Currently in a -5.9 L balance. The patient is seen today October 01, 2023 in follow-up on the regular medical floor. She is sitting up in bed. Awake and alert in no acute distress. Feeling stronger each day. She is maintaining O2 saturations in the 90s on 4 L/min per nasal cannula. She has been resumed on hemodialysis. She remains on Zosyn and daptomycin. Abdominal cultures were positive for Enterococcus faecium and Enterococcus faecalis both VRE. She remains on DuoNeb inhalations, Symbicort, Solu-Medrol. Remains on Lovenox. White count 23.7. Hemoglobin 8.2. Platelets 238. INR 1.64. Sodium 136. Potassium 4.3. Bicarb 26. BUN 27. Creatinine 1.9. Glucose 140. The patient is seen today October 02, 2023 in follow-up on the regular medical floor. She is sitting up at the bedside. Awake and alert in no acute distress. She has had some issues with dizziness while up. She did receive hemodialysis yesterday with 1.9 L removed. The plan is for hemodialysis again today. She is maintaining good O2 saturations in the 90s on 3.5 L/min per nasal cannula. Normal saline at KVO. She is continued on DuoNeb inhalations, Symbicort, Solu- Medrol. Lovenox for anticoagulation. She remains on daptomycin and Zosyn. Anticoagulated with warfarin. INR 2.0. She remains on Lasix 60 mg every 12 hours. Currently in a -5 L balance. The patient is seen today October 03, 2023 in follow-up on the regular medical floor. She is sitting up at the bedside. Awake and alert in no acute distress. Feeling stronger each day. She maintains a good O2 saturations in the 90s on 3 L/min per nasal cannula. No IV fluids. Chest x-ray continues to small small atelectasis/effusions. Stable. She remains on DuoNeb inhalations, Symbicort, Solu-Medrol. Antibiotics in the form of Zosyn. She remains on Lasix 60 mg IV every 12 hours. Currently in a -5 L balance. Plan is for hemodialysis on Wednesday, October 04, 2023. The patient is seen today October 04, 2023 in follow-up on the regular medical floor. She is awake and alert in no acute distress. Sitting up in bed. Curre ntly receiving hemodialysis. She is maintaining O2 saturations in the 90s 3 L/min per nasal cannula. She has been afebrile. Hemodynamically stable. Her hemoglobin this morning was 6.0. She is to receive a second unit of packed red blood cells. White count 34.6. Platelets 191. INR 4.6. Sodium 135. Potassium 5.0. Bicarb 24. BUN 50. Creatinine 2.7. Abdominal wound cultures were positive for Enterococcus faecium VRE. She remains on DuoNeb inhalations, Symbicort, Solu-Medrol. Antibiotics in the form of daptomycin and Zosyn. The patient is seen today October 05, 2023 in follow-up on the regular medical floor. She is currently resting comfortably in bed. Awake and alert in no acute distress. She is maintaining O2 saturations in the 90s on 3 L/min per nasal cannula. She is receiving a 3rd unit of packed red blood cells today for hemoglobin of 6.7. Platelets 192. White count 29.2. INR 1.1. Abdominal wound cultures were positive for Enterococcus faecium VRE. She remains on DuoNeb inhalations, Symbicort, Solu-Medrol. Antibiotics in the form of daptomycin and Zosyn. She remains on Lasix 60 mg IV every 12 hours. Currently in a -2 L balance. The patient is seen today October 07, 2023 in follow-up on the regular medical floor. He is awake and alert in no acute distress. Resting comfortably in bed. Maintaining O2 saturations in the 90s on 3 L/min per nasal cannula. No new labs today. Abdominal wound cultures were positive for Enterococcus faecium VRE. She remains on DuoNeb inhalations, Symbicort, Solu-Medrol. Antibiotics in the form of daptomycin and Zosyn. The patient is seen today October 08, 2023 in follow-up on the regular medical floor. She is currently resting comfortably in bed. Awake and alert in no acute distress. Plan is for hemodialysis today. She continues to maintain good O2 saturations in the upper 90s on 3 L/min per nasal cannula. No worsening shortness of breath, cough or congestion. Chest x-ray reveals no acute pulmonary process. Evidence of COPD. White count 21.9. Hemoglobin 7.4. Platelets 144. Sodium 136. Potassium 4.1. Bicarb 24. BUN 42. Creatinine 2.4. She remains on daptomycin. Continued on DuoNeb inhalations, Symbicort, Solu-Medrol. Objective - Vital Signs Vital signs: Vital Signs Temp 97.4 F L 10/08/23 07:09 Pulse 72 10/08/23 12:34 Resp 20 10/08/23 10:30 BP 139/70 10/08/23 07:09 Pulse Ox 97 10/08/23 07:34 FiO2 35 09/21/23 20:21 Intake & Output 10/07/23 10/08/23 10/08/23 18:59 06:59 18:59 Intake Total 700 200 Output Total 455 320 195 Balance 245 -320 5 Weight 60 kg Intake: Oral 700 200 Output: Drainage 80 320 120 SILVIO Abdomen 80 320 120 Urine 300 Stool 75 75 Other: Voiding Method External Catheter External Catheter External Catheter # Voids 1 - Exam GENERAL EXAM: Alert, pleasant 63-year-old female, resting in bed, on 3 L/min per nasal cannula, in no apparent distress. HEAD: Normocephalic. EYES: Normal reaction of pupils, equal size. NOSE: Clear with pink turbinates. THROAT: No erythema or exudates. NECK: No masses, no JVD. CHEST: No chest wall deformity. LUNGS: Equal air entry with bibasilar crackles, diminished. CVS: S1 and S2 normal with no audible murmur, regular rhythm. ABDOMEN: Colostomy with stool present. Dressing intact. SPINE: No scoliosis or deformity SKIN: No rashes. Skin tear noted on left hand CENTRAL NERVOUS SYSTEM: No focal deficits, tone is normal in all 4 extremities. EXTREMITIES: There is 1+ peripheral edema. No clubbing, no cyanosis. Peripheral pulses are intact. - Labs CBC & Chem 7: 10/08/23 04:58 10/08/23 04:58 Labs: Abnormal Lab Results - Last 24 Hours (Table) 07/31/24 08/01/24 08/02/24 Range/Units 15:29 09:37 04:58 WBC 23.82 H 21.98 H (4.50-10.00) X 10*3/uL RBC 2.44 L 2.33 L (4.10-5.20) X 10*6/uL Hgb 7.8 L 7.4 L (12.0-15.0) g/dL Hct 24.6 L 23.4 L (37.2-46.3) % MCV 100.8 H 100.4 H (80.0-97.0) FL MCHC 31.7 L 31.6 L (32.0-37.0) g/dL RDW 23.0 H 23.4 H (11.5-14.5) % Immature Gran # 0.64 H 0.55 H (0.00-0.04) X 10*3/uL Neutrophils # 22.71 H 21.09 H (1.80-7.70) X 10*3/uL Lymphocytes # 0 L 0 L (0.90-5.00) X 10*3/uL Eosinophils # 0.01 L 0.01 L (0.04-0.35) X 10*3/uL NRBC/100 WBC Diff 3.52 H 1.17 H (0.00-0.01) X 10*3/uL Schistocytes 1+ A Anion Gap (4.00-12.00) mmol/L BUN (9.0-27.0) mg/dL Creatinine (0.6-1.5) mg/dL Est GFR (CKD-EPI) (>=60) Glucose (70-110) mg/dL Calcium (8.7-10.3) mg/dL Total Protein (6.2-8.2) g/dL Albumin (3.8-4.9) g/dL Globulin (1.6-3.3) g/dL Tot Complement (CH50) >97 H (42 - 95) U/mL 10/08/23 Range/Units 04:58 WBC (4.50-10.00) X 10*3/uL RBC (4.10-5.20) X 10*6/uL Hgb (12.0-15.0) g/dL Hct (37.2-46.3) % MCV (80.0-97.0) FL MCHC (32.0-37.0) g/dL RDW (11.5-14.5) % Immature Gran # (0.00-0.04) X 10*3/uL Neutrophils # (1.80-7.70) X 10*3/uL Lymphocytes # (0.90-5.00) X 10*3/uL Eosinophils # (0.04-0.35) X 10*3/uL NRBC/100 WBC Diff (0.00-0.01) X 10*3/uL Schistocytes Anion Gap 14.00 H (4.00-12.00) mmol/L BUN 41.7 H (9.0-27.0) mg/dL Creatinine 2.4 H (0.6-1.5) mg/dL Est GFR (CKD-EPI) 22 L (>=60) Glucose 135 H (70-110) mg/dL Calcium 8.1 L (8.7-10.3) mg/dL Total Protein 4.2 L (6.2-8.2) g/dL Albumin 2.8 L (3.8-4.9) g/dL Globulin 1.4 L (1.6-3.3) g/dL Tot Complement (CH50) (42 - 95) U/mL Assessment and Plan Assessment: Acute hypoxemic respiratory failure secondary to an acute exacerbation of chronic obstructive pulmonary disease, acute systolic congestive heart failure Status post exploratory laparotomy, sigmoid colectomy, and end sigmoid colostomy for ruptured sigmoid diverticulum on September 23, 2023. Cultures positive for Enterococcus faecium VRE, Enterococcus faecalis VRE, Cha. Currently on daptomycin Acute kidney injury secondary to ANCA vasculitis and cardiorenal syndrome previously on hemodialysis. Permacath still in place and restarted on hemodialysis 09/28/2023 Leukocytosis Anemia requiring a third unit of packed red blood cells this admission. Current hemoglobin 7.4 Severe cardiomyopathy with an ejection fraction of 25-30 % History of chronic obstructive pulmonary disease Chronic tobacco dependence ANCA vasculitis and was to have had a kidney biopsy in June 2023 unclear if this was done History of PE/DVT, on warfarin Plan: The patient was seen and evaluated Labs and medications reviewed Transitioned to oral steroids Titrate down the FiO2 as tolerated Continue the current treatment plan Cleared for discharge from the pulmonary standpoint The plan is for [facility] I have personally seen and examined the patient, performed the documentation and the assessment and plan as written. Number of minutes spent on the visit: 10.
--- NOTE | 2023-10-08 16:58 | P.PN ---
Subjective Progress Note Date: 10/08/23 Principal diagnosis: Colon perforation Patient seems to be doing well today. Denies abdominal pain. Pelvic SILVIO drain still sanguinous but concession attendant in color. Patient is afebrile. White blood cell count improved to 21, hemoglobin stable at 7.4. Tolerating diet. Good ostomy function. Better energy. Objective - Vital Signs Vital signs: Vital Signs Temp 97.5 F L 10/08/23 12:54 Pulse 72 10/08/23 15:55 Resp 17 10/08/23 12:54 BP 130/80 10/08/23 12:54 Pulse Ox 94 L 10/08/23 12:54 FiO2 35 09/21/23 20:21 Intake & Output 10/07/23 10/08/23 10/08/23 18:59 06:59 18:59 Intake Total 700 200 Output Total 821 781 2072 Balance 245 320 -1095 Weight 60 kg Intake: Oral 700 200 Output: Drainage 80 320 120 SILVIO Abdomen 80 320 120 Urine 300 1100 Stool 75 75 Other: Voiding Method External Catheter External Catheter External Catheter # Voids 1 - Exam Abdomen: Soft, nondistended, incision clean and dry, ostomy functioning - Labs CBC & Chem 7: 10/08/23 04:58 10/08/23 04:58 Labs: Abnormal Lab Results - Last 24 Hours (Table) 10/06/23 10/08/23 10/08/23 Range/Units 15:29 04:58 04:58 WBC 21.98 H (4.50-10.00) X 10*3/uL RBC 2.33 L (4.10-5.20) X 10*6/uL Hgb 7.4 L (12.0-15.0) g/dL Hct 23.4 L (37.2-46.3) % MCV 100.4 H (80.0-97.0) FL MCHC 31.6 L (32.0-37.0) g/dL RDW 23.4 H (11.5-14.5) % Immature Gran # 0.55 H (0.00-0.04) X 10*3/uL Neutrophils # 21.09 H (1.80-7.70) X 10*3/uL Lymphocytes # 0 L (0.90-5.00) X 10*3/uL Eosinophils # 0.01 L (0.04-0.35) X 10*3/uL NRBC/100 WBC Diff 1.17 H (0.00-0.01) X 10*3/uL Anion Gap 14.00 H (4.00-12.00) mmol/L BUN 41.7 H (9.0-27.0) mg/dL Creatinine 2.4 H (0.6-1.5) mg/dL Est GFR (CKD-EPI) 22 L (>=60) Glucose 135 H (70-110) mg/dL Calcium 8.1 L (8.7-10.3) mg/dL Total Protein 4.2 L (6.2-8.2) g/dL Albumin 2.8 L (3.8-4.9) g/dL Globulin 1.4 L (1.6-3.3) g/dL Tot Complement (CH50) >97 H (42 - 95) U/mL Assessment and Plan (1) Perforation of sigmoid colon due to diverticulitis Narrative/Plan: 63-year-old female with sigmoid colon perforation. Continue regular diet. Continue with physical therapy. Monitor labs. Continue antibiotics. Keep drain in place. Continue holding anticoagulation. Anticipate possible transfer to rehab early next week. Current Visit: Yes Status: Acute Code(s): K57.20 - DVTRCLI OF LG INT W PERFORATION AND ABSCESS W/O BLEEDING SNOMED Code(s): 9971632507330155
[2023-10-09 07:59] LABS: Anisocytosis Moderate; Basophils % (A) 0 %; Eosinophils # (A) 0.1 k/uL (0-0.7); Eosinophils % (A) 0 %; HCT 27.5 % (34.0-46.0); HGB 8.8 gm/dL (11.4-16.0); Hypochromasia Marked; Lymphocytes # (A) 0.4 k/uL (1.0-4.8); Lymphocytes % (A) 2 %; MCH 32.4 pg (25.0-35.0); Macrocytosis Marked; Mean Platelet Volume 8.9; Monocytes # (A) 0.2 k/uL (0-1.0); Monocytes % (A) 1 %; Neutrophils # (A) 17.3 k/uL (1.3-7.7); Neutrophils % (A) 96 %; Platelet Count 179 k/uL (150-450); Poikilocytosis Slight; RBC 2.72 m/uL (3.80-5.40); RDW 22.7 % (11.5-15.5); WBC 17.9 k/uL (3.8-10.6)
[2023-10-09 08:05] LABS: ALT 24 U/L (4-34); AST 38 U/L (14-36); African American GFR (CKD) 34 (>60 ml/min/1.73 sqM); Albumin 2.6 g/dL (3.5-5.0); Albumin/Globulin Ratio 1.4; Alkaline Phosphatase 73 U/L (38-126); Anion Gap 3 mmol/L; Blood Urea Nitrogen 31 mg/dL (7-17); Calcium 8.5 mg/dL (8.4-10.2); Carbon Dioxide 28 mmol/L (22-30); Chloride 100 mmol/L (98-107); Globulin 1.9 g/dL; Glucose 119 mg/dL (74-99); MCV 101.4 fL (80.0-100.0); Non-African American GFR(CKD) 29 (>60 ml/min/1.73 sqM); Potassium 2.8 mmol/L (3.5-5.1); Sodium 131 mmol/L (137-145); Total Bilirubin 0.6 mg/dL (0.2-1.3); Total Protein 4.5 g/dL (6.3-8.2)
[2023-10-09] MEDS: predniSONE 20 MG TAB PO SCH (10:47)
--- NOTE | 2023-10-09 12:08 | P.PN ---
Subjective Progress Note Date: 10/09/23 This is a 63-year-old female patient with a known history of chronic obstructive pulmonary disease, former smoker, previous acute kidney injury requiring dialysis that she completed approximately 2 weeks ago. She presented here to the emergency room today with increasing shortness of breath. Symptoms started just this morning. No fever or chills. No cough or congestion. Mainly dyspnea on minimal exertion. Chest x-ray reveals evidence of COPD with superimposed interstitial opacities, possible pulmonary edema versus atypical pneumonia. White count 27.9. Hemoglobin 10.5. Platelets 294. INR 1.3. Sodium 136. Potassium 4.3. Bicarb 30. BUN 47. Creatinine 1.56. Glucose 196. Troponin 0.205. proBNP 60,000. The patient is seen in consultation in the emergency department. She is currently sitting up on the stretcher. Awake and alert. On BiPAP 14/5 and 40% FiO2 to maintain O2 saturations in the 90s. Been initiated on a heparin drip. Initiated on antibiotics, bronchodilators and steroids. The patient is seen today September 22, 2023 in follow-up in the emergency department. She is awake and alert in no acute distress. Breathing easier today compared to yesterday. She is maintaining good O2 saturations in the 90s on 2 L/min per nasal cannula. She has been off the BiPAP. She remains on a heparin drip. Peak troponin 0.521. She is continued on DuoNeb inhalations, Symbicort, Solu-Medrol. She is continued on ceftriaxone. Chest x-ray shows diffuse interstitial opacities with slight improvement. The patient is seen today September 27, 2023 in follow-up on the regular medical [facility] or. She is currently sitting up in a chair. Awake and alert in no acute distress. She is still receiving oxygen at 6 L/min per nasal cannula. Lactated Ringer's at 75 MLS per hour. She did have an episode of shortness of breath and anxiety last evening. She states she is feeling better today. X-ray reveals evidence of fluid volume overload. No focal consolidation, pneumothorax or pleural effusion. Right internal jugular catheter in place. She is status post 1 unit of packed red blood cells and 2 units of fresh frozen plasma this admission. Abdominal fluid cultures were positive for bacteroids. Wound culture positive for Enterococcus faecium VRE, Enterococcus faecalis VRE and Cha. White count 20.1. Hemoglobin 8.7. Platelets 227. Sodium 135. Potassium 5.8. Bicarb 23. BUN 63. Creatinine 2.46. Glucose 124. She is continued on DuoNeb inhalations, Symbicort, daptomycin and Zosyn. Lovenox for DVT prophylaxis. The patient is seen today September 28, 2023 in follow-up on the regular medical floor. She is currently resting in bed. Awake and alert in no acute distress. Feeling better today compared to yesterday. She is maintaining good O2 saturations in the 90s on 4 L/min per nasal cannula. No IV fluids. She is continued on daptomycin and Zosyn. Chest x-ray reveals right pleural effusion with pulmonary vascular congestion. Left lung is relatively clear. She remains on DuoNeb ventilations, Pulmicort and Perforomist inhalations, Solu-Medrol. Lovenox for DVT prophylaxis. Sodium 131. Potassium 5.1. Bicarb 23. BUN 69. Creatinine 2.68. Glucose 146. She was given Lasix 60 mg IVP x 1. She is currently in a -1.5 L balance. The patient is seen today September 29, 2023 in follow-up on the regular medical floor. She is currently sitting up in bed. Awake and alert in no acute distress. Maintaining good O2 saturations in the 90s on 4 L/min per nasal neida sorin. She is status post 1 unit of packed red blood cells and 2 units of platelets fresh frozen plasma this admission. Abdominal fluid and wound cultures were positive for Enterococcus faecium VRE, Enterococcus faecalis VRE, Cha. White count 17.7. Hemoglobin 7.9. Platelets 233. Sodium 136. Potassium 3.5. Bicarb 27. BUN 33. Creatinine 2.0. Glucose 152. She remains on DuoNeb inhalations, Pulmicort and Perforomist inhalations, Solu-Medrol. Antibiotics in the form of daptomycin and Zosyn. The patient is seen today September 30, 2023 in follow-up on the regular medical floor. She is resting comfortably in bed. Maintaining good O2 saturations in the 90s on 5 L/min per nasal cannula. She is status post 1 unit of packed red blood cells and 2 fresh frozen plasma this admission. Abdominal cultures were positive for Enterococcus faecium and Enterococcus faecalis both VRE. White cou nt 19.6. Hemoglobin 7.5. Platelets 225. INR 1.4. Sodium 137. Potassium 3.8. Bicarb 24. BUN 46. Creatinine 2.6. Glucose 160. She is continued on DuoNeb inhalations, Symbicort, Solu-Medrol. Antibiotics in the form of Zosyn and daptomycin. Lovenox for DVT prophylaxis. Currently on Lasix 60 mg IV every 12 hours. Currently in a -5.9 L balance. The patient is seen today October 01, 2023 in follow-up on the regular medical floor. She is sitting up in bed. Awake and alert in no acute distress. Feeling stronger each day. She is maintaining O2 saturations in the 90s on 4 L/min per nasal cannula. She has been resumed on hemodialysis. She remains on Zosyn and daptomycin. Abdominal cultures were positive for Enterococcus faecium and Enterococcus faecalis both VRE. She remains on DuoNeb inhalations, Symbicort, Solu-Medrol. Remains on Lovenox. White count 23.7. Hemoglobin 8.2. Platelets 238. INR 1.64. Sodium 136. Potassium 4.3. Bicarb 26. BUN 27. Creatinine 1.9. Glucose 140. The patient is seen today October 02, 2023 in follow-up on the regular medical floor. She is sitting up at the bedside. Awake and alert in no acute distress. She has had some issues with dizziness while up. She did receive hemodialysis yesterday with 1.9 L removed. The plan is for hemodialysis again today. She is maintaining good O2 saturations in the 90s on 3.5 L/min per nasal cannula. Normal saline at KVO. She is continued on DuoNeb inhalations, Symbicort, Solu- Medrol. Lovenox for anticoagulation. She remains on daptomycin and Zosyn. Anticoagulated with warfarin. INR 2.0. She remains on Lasix 60 mg every 12 hours. Currently in a -5 L balance. The patient is seen today October 03, 2023 in follow-up on the regular medical floor. She is sitting up at the bedside. Awake and alert in no acute distress. Feeling stronger each day. She maintains a good O2 saturations in the 90s on 3 L/min per nasal cannula. No IV fluids. Chest x-ray continues to small small atelectasis/effusions. Stable. She remains on DuoNeb inhalations, Symbicort, Solu-Medrol. Antibiotics in the form of Zosyn. She remains on Lasix 60 mg IV every 12 hours. Currently in a -5 L balance. Plan is for hemodialysis on Wednesday, October 04, 2023. The patient is seen today October 04, 2023 in follow-up on the regular medical floor. She is awake and alert in no acute distress. Sitting up in bed. Curre ntly receiving hemodialysis. She is maintaining O2 saturations in the 90s 3 L/min per nasal cannula. She has been afebrile. Hemodynamically stable. Her hemoglobin this morning was 6.0. She is to receive a second unit of packed red blood cells. White count 34.6. Platelets 191. INR 4.6. Sodium 135. Potassium 5.0. Bicarb 24. BUN 50. Creatinine 2.7. Abdominal wound cultures were positive for Enterococcus faecium VRE. She remains on DuoNeb inhalations, Symbicort, Solu-Medrol. Antibiotics in the form of daptomycin and Zosyn. The patient is seen today October 05, 2023 in follow-up on the regular medical floor. She is currently resting comfortably in bed. Awake and alert in no acute distress. She is maintaining O2 saturations in the 90s on 3 L/min per nasal cannula. She is receiving a 3rd unit of packed red blood cells today for hemoglobin of 6.7. Platelets 192. White count 29.2. INR 1.1. Abdominal wound cultures were positive for Enterococcus faecium VRE. She remains on DuoNeb inhalations, Symbicort, Solu-Medrol. Antibiotics in the form of daptomycin and Zosyn. She remains on Lasix 60 mg IV every 12 hours. Currently in a -2 L balance. The patient is seen today October 07, 2023 in follow-up on the regular medical floor. He is awake and alert in no acute distress. Resting comfortably in bed. Maintaining O2 saturations in the 90s on 3 L/min per nasal cannula. No new labs today. Abdominal wound cultures were positive for Enterococcus faecium VRE. She remains on DuoNeb inhalations, Symbicort, Solu-Medrol. Antibiotics in the form of daptomycin and Zosyn. The patient is seen today October 08, 2023 in follow-up on the regular medical floor. She is currently resting comfortably in bed. Awake and alert in no acute distress. Plan is for hemodialysis today. She continues to maintain good O2 saturations in the upper 90s on 3 L/min per nasal cannula. No worsening shortness of breath, cough or congestion. Chest x-ray reveals no acute pulmonary process. Evidence of COPD. White count 21.9. Hemoglobin 7.4. Platelets 144. Sodium 136. Potassium 4.1. Bicarb 24. BUN 42. Creatinine 2.4. She remains on daptomycin. Continued on DuoNeb inhalations, Symbicort, Solu-Medrol. The patient is seen today October 09, 2023 in follow-up on the regular medical floor. She is alert and oriented. Denies any worsening shortness of breath, cough or congestion. She is maintaining good O2 saturations in the high 90s on 3 L/min per nasal cannula. She is continue on DuoNeb ventilations, Symbicort, prednisone taper. She remains on antibiotics in the form of daptomycin. White count 17.9. Hemoglobin 8.8. Platelets 179. Sodium 131. Potassium 2.8. Bic arb 28. BUN 31. Creatinine 1.82. Glucose 119. Objective - Vital Signs Vital signs: Vital Signs Temp 97.6 F 10/09/23 01:30 Pulse 85 10/09/23 11:40 Resp 18 10/09/23 06:58 BP 142/77 10/09/23 06:58 Pulse Ox 96 10/09/23 08:26 FiO2 35 09/21/23 20:21 Intake & Output 10/08/23 10/09/23 10/09/23 18:59 06:59 18:59 Intake Total 600 Output Total 5695 630 Balance -5095 -630 Weight 60 kg Intake: Oral 200 Hemodialysis 400 Output: Drainage 120 80 SILVIO Abdomen 120 80 Urine 1100 300 Stool 75 250 Hemodialysis 2400 Hemodialysis Net Amount 2000 Other: Voiding Method External Catheter External Catheter - Exam GENERAL EXAM: Alert, 63-year-old female, on 3 L/min per nasal cannula, in no apparent distress. HEAD: Normocephalic. EYES: Normal reaction of pupils, equal size. NOSE: Clear with pink turbinates. THROAT: No erythema or exudates. NECK: No masses, no JVD. CHEST: No chest wall deformity. LUNGS: Equal air entry with bibasilar crackles, diminished. CVS: S1 and S2 normal with no audible murmur, regular rhythm. ABDOMEN: Colostomy with stool present. Dressing intact. SPINE: No scoliosis or deformity SKIN: No rashes. Skin tear noted on left hand CENTRAL NERVOUS SYSTEM: No focal deficits, tone is normal in all 4 extremities. EXTREMITIES: There is 1+ peripheral edema. No clubbing, no cyanosis. Peripheral pulses are intact. - Labs CBC & Chem 7: 10/09/23 07:21 10/09/23 07:21 Labs: Abnormal Lab Results - Last 24 Hours (Table) 10/09/23 10/09/23 Range/Units 07:21 07:21 WBC 17.9 H (3.8-10.6) k/uL RBC 2.72 L (3.80-5.40) m/uL Hgb 8.8 L (11.4-16.0) gm/dL Hct 27.5 L (34.0-46.0) % MCV 101.4 H D (80.0-100.0) fL RDW 22.7 H (11.5-15.5) % Neutrophils # 17.3 H (1.3-7.7) k/uL Lymphocytes # 0.4 L (1.0-4.8) k/uL Macrocytosis Marked A Sodium 131 L (137-145) mmol/L Potassium 2.8 L (3.5-5.1) mmol/L BUN 31 H (7-17) mg/dL Creatinine 1.82 H (0.52-1.04) mg/dL Glucose 119 H (74-99) mg/dL AST 38 H (14-36) U/L Total Protein 4.5 L (6.3-8.2) g/dL Albumin 2.6 L (3.5-5.0) g/dL Assessment and Plan Assessment: Acute hypoxemic respiratory failure secondary to an acute exacerbation of chronic obstructive pulmonary disease, acute systolic congestive heart failure Status post exploratory laparotomy, sigmoid colectomy, and end sigmoid colostomy for ruptured sigmoid diverticulum on September 23, 2023. Cultures positive for Enterococcus faecium VRE, Enterococcus faecalis VRE, Cha. Currently on daptomycin Acute kidney injury secondary to ANCA vasculitis and cardiorenal syndrome previously on hemodialysis. Permacath still in place and restarted on hemodialysis 09/28/2023 Leukocytosis Anemia requiring a third unit of packed red blood cells this admission. Current hemoglobin 8.8 Severe cardiomyopathy with an ejection fraction of 25-30 % History of chronic obstructive pulmonary disease Chronic tobacco dependence ANCA vasculitis and was to have had a kidney biopsy in June 2023 unclear if this was done History of PE/DVT, on warfarin Plan: The patient was seen and evaluated Labs and medications reviewed Titrate down the FiO2 as tolerated Continue the current treatment plan The plan is for [facility] at discharge I have personally seen and examined the patient, performed the documentation and the assessment and plan as written. Number of minutes spent on the visit: 10.
--- NOTE | 2023-10-09 13:08 | P.PN ---
Subjective Progress Note Date: 10/09/23 This is a 63-year-old female patient of Dr. Daniels who presented to the ER with concerns of increased shortness of breath. Patient was recently admitted at [facility] last week for similar symptoms but did leave AMA prior to completion of treatment. Patient was alsopatient was also recently admitted recently admitted and transferred to [facility] and transferred to [facility] due to diagnosis of vasculitis and required hemodialysis during the hospital stay patient also had episode of pulmonary embolism in which she was started on Coumadin. Patient recently had hemodialysis catheter DC'd.. Additional medical history includes COPD and ex-smoker. Chest x-ray completed in ER showing COPD with superimposed interstitial opacities possible interstitial pulmonary edema versus atypicalCOPD with superimposed interstitial bases possible interstitial pulmonary edema versus atypical pneumonitis. Lab work revealing BNP level 60,000.. [id number] 0.205, 0.403 and 0.521. Creatinine 1.56 bun 47. White blood cell 27.9 hemoglobin 10.5 . Patient was started on Zithromax and Rocephin. Given dose of IV Lasix. Started on heparin drip for elevated troponins. Cardiology pulmonary and nephrology services consulted. Cardiology pulmonary and nephrology service is consulted. Current vital signs Temp 97.3, heart rate 95, respiratory rate 18, blood pressure 143/88 with a pulse ox of 96% on 2 L. On 09/23/2023 patient was seen and examined on the medical floor she is alert and oriented x 3 in no apparent distress, she started complaining of severe abdominal pain in the bilateral lower quadrants this morning, otherwise she denies any complaints there is no fever or chills no headache or dizziness no chest pain no shortness of breath no cough no nausea or vomiting no diarrhea no blood in the stools no burning with urination no frequency or urgency and no hematuria, CT scan of the abdomen and pelvis without contrast was ordered, will follow closely On 09/24/2023 Patient's alert and oriented 3. Patient is status post diagnostic laparoscopy sigmoid colectomy with end colostomy secondary to perforated sigmoid diverticulitis. Patient is currently postop day 1. Patient was transferred to the intensive care unit postoperatively but has been extubated to 2 L. Patient remains on IV Zosyn. Vertical care, nephrology, surgical, infectious disease service is following. Patient denies chest pain or shortness breath. Patient denies nausea vomiting or diarrhea. Burning or frequency On 09/25/2023 patient was seen and examined on the medical floor, she is alert and oriented x 3 in no apparent distress, there is no fever or chills no headache or dizziness no chest pain no shortness of breath no cough no nausea or vomiting no abdominal pain no diarrhea and no urinary symptoms, patient was noticed by her nurse to have an equal pupils, patient denies any previous knowl edge of abnormal pupil size, CT scan of the brain and neurology consultation will be initiated, hemoglobin today is down to 6.7 and patient will be given 1 unit of red blood cells. On 09/26/2023 patient is alert and oriented x 3. Patient has been tolerating full liquid diet. Patient el on IV Zosyn. Neurology services are following. Current vital signs Temp 98.2, rate 85, respiratory rate 15, blood pressure 151/89 with a pulse ox of 95% on 2 L. Patient denies chest pain or shortness of breath. Patient denies nausea vomiting or diarrhea. Patient denies any urinary burning or frequency. On 09/27/2023 patient was seen and examined on the medical floor, she is alert and oriented x 3 in no distress she denies any symptoms at this time there is no fever or chills, no headache or dizziness no chest pain no shortness of breath no cough no nausea or vomiting no abdominal pain no diarrhea no urinary symptoms On 09/28/2023 patient was seen and examined on the medical floor she is alert and oriented in no apparent distress there is no fever or chills no headache or dizziness no chest pain no shortness of breath no cough no nausea or vomiting no abdominal pain no diarrhea no urinary symptoms multiple specialist input reviewed today will follow in a.m. on 09/29/2023atient is alert and oriented 3. Patient underwent hemodialysis yesterday patient remains on IV steroids at [facility] and Zosyn. White blood cell trending down 17.76.current vital signs temp 97.7, heart rate 84, resp iratory rate 17, blood pressure 157/99 with pulse ox 98% on 4 L on 09/29/2024 patient's alert and oriented 3 patientto have hemodialysis today. Creatinine 2.6 bun 46.3.patient remains on Zosyn, Diflucan and daptomycin. Patient also remains on IV Lasix. Patient maintained on full liquid diet per surgical services. This time patient denies chest pain or shortness of breath. Patient denies nausea vomiting or diarrhea. Patient denies any urinary burning or frequency on 10/01/2023 patient is alert and oriented 3. Patient's diet has been advanced per surgical services. Patient denies chest pain or shortness of breath. Patient denies nausea vomiting or diarrhea. Patient denies any urinary burning or frequency.white blood cell increasing to 23. Patient remains on IV Zosyn, daptomycin and Diflucan. Infectious disease services are following.current vital signs temp 97.5, heart rate 75, respiratory rate 18, blood pressure 158/89 with pulse ox 97% on 4 L On 10/02/2023 patient was seen and examined on the medical floor she is alert and oriented x 3 in no apparent distress there is no fever or chills no headache or dizziness no chest pain no shortness of breath no cough no nausea or vomiting no abdominal pain no diarrhea and no urinary symptoms. Currently she is receiving hemodialysis will continue with current management will follow closely On 10/03/2023 patient is alert and oriented x 3. Patient reports she just does not feel too well today. Current current vital signs Temp 97.5, heart rate 79, respiratory rate 17, blood pressure 118/76 with pulse ox of 99% on 3 L. Lab work currently pending. Patient denies chest pain or shortness of breath. Patient denies nausea vomiting or diarrhea. Patient denies any urinary burning or frequency. Patient has been tolerating low fiber diet. On 10/04/2023 patient was seen and examined on the medical floor she is alert and oriented x 3 in no apparent distress she is complaining of generalized fatigue otherwise she denies any complaints there is no fever or chills no headache or dizziness no chest pain no shortness of breath no cough no nausea or vomiting no abdominal pain no diarrhea no urinary symptoms, hemoglobin today is down to 6.0, 1 unit of red blood cell transfusion was ordered, patient is followed by nephrology and is scheduled for hemodialysis today. On 10/05/19 2patient's alert and oriented 3. Hemoglobin 6.7 and additional unit of PRBCs has been ordered. per surgical services concerns of possible hematoma. Computed tomography scan of abdomen has been ordered.white blood cell also elevated at 34. Infectious disease services are following. Current vital signs temp 91, heart rate 72, respiratory rate 17, blood pressure 137/81 with a pulse ox of 97% on 3 L On 10/06/2023 patient is alert and oriented 3. hemoglobin 7.7, white blood cell 24.1. Patient currently getting hemodialysis. CT of abdomen and pelvis was completed awaiting results per surgical services concerns about possible hematoma. Patient remains on IV daptomycin and Zosyn. Patient denies chest pain or shortness breath. Patient denies nausea vomiting or diarrhea. Patient denies any urinary burning or frequency On 10/07/2023 patient was seen and examined on the medical floor she is alert and oriented in no apparent distress, she denies any complaints at this time vital exam reveals a temperature of 97.8 pulse 71 respirations 16 blood pressure 147/76 pulse ox 95% on 3 L nasal cannula, white blood count is 23.8 hemoglobin 7.8 platelet count 167, abdominal wound culture is positive for Enterococcus faecium and Enterococcus faecalis VRE and Cha albicans, Dr. Benton infectious disease following, currently maintained on daptomycin, will continue to follow closely On 10/08/2023 patient's alert and oriented 3.patient apparently had episode of increased congestion and shortness of breath this a.m. but reports that she had immediate relief after blowing her nose. Patient to get hemodialysis. At this time patient denies chest pain or shortness of breath. Patient denies nausea vomiting or diarrhea. Patient denies any urinary burning or frequency. Current vital signs temp 97.4, her 82, respiratory rate 17, blood pressure 139/70 with pulse ox 97% on 3 Lpatient will likely need ECF upon discharge PT OT service is consulted On 10/09/2023 patient was seen and examined on the medical floor she is alert and oriented x 3 in no apparent distress, there is no fever or chills no headache or dizziness no chest pain no shortness of breath no cough no nausea or vomiting no abdominal pain no diarrhea no urinary symptoms, vital exam reveals a temperature of 97.6 pulse 72 respiration 17 blood pressure 142/77 pulse ox 91% on 4 L nasal cannula, white blood count 17.9 hemoglobin 8.8 platelet count 179 potassium 2.8 BUN 31 creatinine 1.82 patient will be given 1 dose of IV potassium chloride 20 mEq, recheck labs in a.m., nephrology to follow, patient is maintained on hemodialysis Objective - Vital Signs Vital signs: Vital Signs Temp 97.6 F 10/09/23 01:30 Pulse 85 10/09/23 11:40 Resp 18 10/09/23 06:58 BP 142/77 10/09/23 06:58 Pulse Ox 96 10/09/23 08:26 FiO2 35 09/21/23 20:21 Intake & Output 10/08/23 10/09/23 10/09/23 18:59 06:59 18:59 Intake Total 600 Output Total 5695 630 Balance -5095 -887 Weight 60 kg Intake: Oral 200 Hemodialysis 400 Output: Drainage 120 80 SILVIO Abdomen 120 80 Urine 1100 300 Stool 75 250 Hemodialysis 2400 Hemodialysis Net Amount 2000 Other: Voiding Method External Catheter External Catheter External Catheter - Exam Physical examHead normocephalic Neck supple Lungs diminished bilaterally Heart regular rate and rhythm S1-S2, no rub or gallop Abdomen is soft with mild diffuse tenderness especially in the pelvic area bilaterally no organomegaly no palpable masses Extremities no edema Neuro alert and orientated to 3 - Labs CBC & Chem 7: 10/09/23 07:21 10/09/23 07:21 Labs: Abnormal Lab Results - Last 24 Hours (Table) 10/09/23 10/09/23 Range/Units 07:21 07:21 WBC 17.9 H (3.8-10.6) k/uL RBC 2.72 L (3.80-5.40) m/uL Hgb 8.8 L (11.4-16.0) gm/dL Hct 27.5 L (34.0-46.0) % MCV 101.4 H D (80.0-100.0) fL RDW 22.7 H (11.5-15.5) % Neutrophils # 17.3 H (1.3-7.7) k/uL Lymphocytes # 0.4 L (1.0-4.8) k/uL Macrocytosis Marked A Sodium 131 L (137-145) mmol/L Potassium 2.8 L (3.5-5.1) mmol/L BUN 31 H (7-17) mg/dL Creatinine 1.82 H (0.52-1.04) mg/dL Glucose 119 H (74-99) mg/dL AST 38 H (14-36) U/L Total Protein 4.5 L (6.3-8.2) g/dL Albumin 2.6 L (3.5-5.0) g/dL Assessment and Plan Assessment: Acute hypoxic respiratory failure secondary to acute exacerbation of COPD and acute systolic congestive heart failure Acute exacerbation of COPD. Patient started on IV steroids Acute systolic congestive heart failure Perforated sigmoid diverticulitis status post sigmoid colectomy with end colostomy on 09/23/2023 Elevated troponins, likely related to renal failure, seen by cardiology no intervention recommended at this time Acute on chronic kidney disease Recent diagnosis of vasculitis at [facility] Recent history of PE/DVT maintained on Coumadin History of cardiomyopathy with EF of 15 to 20% History of tobacco abuse recently quit Unequal pupil size. Neurology service is following Concerns for possible hematoma per surgical services patient to receive a third unit of PRBCs computed tomography scan of abdomen ordered DVT prophylaxis lovenox. GI prophylaxis Protonix Pulmonary, cardiology and nephrology services consulted Patient started on IV steroids and IV antibiotics patient started back on hemodialysis
[2023-10-09] MEDS: POTASSIUM CHLORIDE ER 20 MEQ TAB.ER PO STA (14:29)
--- NOTE | 2023-10-09 14:46 | P.PN ---
Subjective Progress Note Date: 10/09/23 I am following-up with patient and is about the same. No new neurological issues. Objective - Vital Signs Vital signs: Vital Signs Temp 97.6 F 10/09/23 01:30 Pulse 85 10/09/23 11:40 Resp 18 10/09/23 06:58 BP 142/77 10/09/23 06:58 Pulse Ox 96 10/09/23 08:26 FiO2 35 09/21/23 20:21 Intake & Output 10/08/23 10/09/23 10/09/23 18:59 06:59 18:59 Intake Total 600 Output Total 5695 630 Balance -5091 -630 Weight 60 kg Intake: Oral 200 Hemodialysis 400 Output: Drainage 120 80 SILVIO Abdomen 120 80 Urine 1100 300 Stool 75 250 Hemodialysis 2400 Hemodialysis Net Amount 2000 Other: Voiding Method External Catheter External Catheter External Catheter - Exam GENERAL: The patient is lying in bed and is not in acute distress. NEUROLOGICAL: Limited. Higher mental function: The patient is awake, alert, oriented to self, place and time. Patient is following simple commands. No aphasia. Cranial nerves: The pupils are round, right is 3mm and left is 4mm and reactive to light and accommodation. Visual gomez are full to confrontation throughout. Extraocular movement is intact no nystagmus is noted. No dysarthria is noted. Shoulder shrug is normal bilaterally. Motor: The strength is hard to assess individual muscle strength because of her cooperation but is able to lift bilateral uppers above gravity. In lowers is wiggling toes but no movement proximally.. Decrease tone throughout. . Some of the workup during this hospital visit consisted of: White blood cell on presentation is 27,000 and is trending down. Hemoglobin is 6.7 and today is 8.6 Most recent creatinine is 2.4. It is drastically better compared to 06/29/2023. Per recent TSH on 07/05/2023 is 3.73 which is normal CK level 25 CT head: It is reported as no acute intracranial process. Nonspecific white matter changes, likely secondary due to chronic small vessel ischemic disease. I personally reviewed the CT and I agree with the report. Carotid duplex: Less than 50% stenosis bilateral carotid bifurcation - Labs CBC & Chem 7: 10/09/23 07:21 10/09/23 13:08 Labs: Abnormal Lab Results - Last 24 Hours (Table) 10/09/23 10/09/23 10/09/23 Range/Units 07:21 07:21 13:08 WBC 17.9 H (3.8-10.6) k/uL RBC 2.72 L (3.80-5.40) m/uL Hgb 8.8 L (11.4-16.0) gm/dL Hct 27.5 L (34.0-46.0) % MCV 101.4 H D (80.0-100.0) fL RDW 22.7 H (11.5-15.5) % Neutrophils # 17.3 H (1.3-7.7) k/uL Lymphocytes # 0.4 L (1.0-4.8) k/uL Macrocytosis Marked A Sodium 131 L (137-145) mmol/L Potassium 2.8 L 3.1 L (3.5-5.1) mmol/L BUN 31 H (7-17) mg/dL Creatinine 1.82 H (0.52-1.04) mg/dL Glucose 119 H (74-99) mg/dL AST 38 H (14-36) U/L Total Protein 4.5 L (6.3-8.2) g/dL Albumin 2.6 L (3.5-5.0) g/dL Assessment and Plan Assessment: This is a 63-year-old woman who was 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 During this admission she was found to have unequal pupils left slightly bigger than the right but she denies of any headache visual disturbance difficulty swallowing. Anisocoria left pupil is 4 mm and the right is 3 mm and both reactive to light and denies any headache or visual disturbance: Unsure exact etiology. Possible physiological since only 1mm difference vs medication iduced ?(on nebulizers) vs ?vasculitis.CT head and carotid duplex are unremarkable. Recent perforated sigmoid diverticulitis status post diagnostic laparoscopy with sigmoid colectomy and end colostomy on 09/23/2023 Recent diagnosis of vasculitis and had kidney biopsy at [facility] in June 2023 Acute kidney injury since June 2023 and patient required temporary dialysis which she completed and kidneys are improving but is trending up. Anemia Folate deficiency. B6 deficiency Has significant bilateral lower extremity weakness more than upper since June 2023 the patient states her strength is improving and now she is walking with a walker. Cardiomyopathy and ejection fraction of 25 to 30% since she had vasculitis History of recent pulmonary embolism DVT and is on Coumadin History of COPD Ex tobacco user Plan: KATIE negative, SSA/SSB negative, anti-Hurst antibodies negative, [employer] antibodies negative. B12 2425, folate 4.70, MMA: 0.21 Patient to be started on folic acid 1 mg daily. For B6 deficiency will start on Pyrodoxine 50mg daily and within 2-3 weeks recommend repeating level and modify medication accordingly. The patient is on methylprednisolone tapering dose of 40 mg IV every 8 hours, as per pulmonary team. Patient does not want any further or escalation of work-up for her anisocoria at this time otherwise. Does not want MRI Brain and does not want to pursue with temporal biopsy. I highly doubt giant cell arteritis. Patient is in agreement if has any headache or visual disturbance then will proceed with work-up. Recommend the patient to be evaluated by Senior [employer] Developer as outpatient within 2- 3 weeks. Patient will need EMG and nerve conductions of upper and lower extremities to evaluate for polyneuropathy. Dr. Cagle discussed with patient about performing lumbar puncture to rule out elevated proteins, which may suggest an inflammatory component but patient declined. Pulmonary team is on board, ID team is on board, nephrology team is on board and cardiology team is on board Will defer the rest of the medical management to primary and other specialist Recommend patient follow-up with neurologist outpatient for EMG testing. DVT prophylaxis: Patient on Lovenox 60 mg every 24 hours. The plan is discussed with primary attending. Will follow-up sporadically. Dr. Cagle will resume neurology service on 10/11/2023 A.M. Time with Patient: Less than 30
--- NOTE | 2023-10-09 14:58 | P.PN ---
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 On today's evaluation that is 10/09/2023,the patient remains to be afebrile, patient is on nasal cannula supplemental oxygen and denies any shortness of breath no chest pain however did have a congested cough.Patient denies having any nausea or vomiting, no abdominal pain and no no worsening output in the colostomy bag. Patient white count is down to 17.9, creatinine is 1.82 Objective - Vital Signs Vital signs: Vital Signs Temp 98.6 F 10/09/23 14:04 Pulse 84 10/09/23 14:04 Resp 17 10/09/23 14:04 BP 145/77 10/09/23 14:04 Pulse Ox 97 10/09/23 14:04 FiO2 35 09/21/23 20:21 Intake & Output 10/08/23 10/09/23 10/09/23 18:59 06:59 18:59 Intake Total 600 Output Total 5695 630 Balance -5095 -630 Weight 60 kg Intake: Oral 200 Hemodialysis 400 Output: Drainage 120 80 SILVIO Abdomen 120 80 Urine 1100 300 Stool 75 250 Hemodialysis 2400 Hemodialysis Net Amount 2000 Other: Voiding Method External Catheter External Catheter External Catheter - Exam GENERAL DESCRIPTION: Middle-aged female lying in bed in no distress RESPIRATORY SYSTEM: Unlabored breathing , decreased breath sounds at bases HEART: S1 S2 regular rate and rhythm , ABDOMEN: Soft , patient did have some bruising around her incision no drainage w as noticed EXTREMITIES: No edema feet - Labs CBC & Chem 7: 10/09/23 07:21 10/09/23 13:08 Labs: Abnormal Lab Results - Last 24 Hours (Table) 10/09/23 10/09/23 10/09/23 Range/Units 07:21 07:21 13:08 WBC 17.9 H (3.8-10.6) k/uL RBC 2.72 L (3.80-5.40) m/uL Hgb 8.8 L (11.4-16.0) gm/dL Hct 27.5 L (34.0-46.0) % MCV 101.4 H D (80.0-100.0) fL RDW 22.7 H (11.5-15.5) % Neutrophils # 17.3 H (1.3-7.7) k/uL Lymphocytes # 0.4 L (1.0-4.8) k/uL Macrocytosis Marked A Sodium 131 L (137-145) mmol/L Potassium 2.8 L 3.1 L (3.5-5.1) mmol/L BUN 31 H (7-17) mg/dL Creatinine 1.82 H (0.52-1.04) mg/dL Glucose 119 H (74-99) mg/dL AST 38 H (14-36) U/L Total Protein 4.5 L (6.3-8.2) g/dL Albumin 2.6 L (3.5-5.0) g/dL Assessment and Plan (1) Perforation of sigmoid colon due to diverticulitis Current Visit: Yes Status: Acute Code(s): K57.20 - DVTRCLI OF LG INT W PERFORATION AND ABSCESS W/O BLEEDING SNOMED Code(s): 4191822056563847 (2) Peritonitis Current Visit: Yes Status: Acute Code(s): K65.9 - PERITONITIS, UNSPECIFIED SNOMED Code(s): 20588947 (3) Leukocytosis Current Visit: No Status: Acute Code(s): D72.829 - ELEVATED WHITE BLOOD CELL COUNT, UNSPECIFIED SNOMED Code(s): 905048177 (4) Sepsis Current Visit: Yes Status: Acute Code(s): A41.9 - SEPSIS, UNSPECIFIED ORGANISM SNOMED Code(s): 11753888 Plan: 1patient presented to the hospital with sepsis in this patient who did have a fever tachycardia meeting criteria for SIRS source is likely perforated diverticulitis with peritonitis and need to cover for the enteric gram-negative both aerobes and anaerobes patient also have complaint of increasing shortness of breath and cough CT shows bilateral lower lobe consolidation, possible pneumonia 2-patient is status post diagnostic laparoscopy sigmoid resection and end colostomy abdominal culture currently growing Enterococcus faecium and faecalis and Cha 3-patient is afebrile , patient did have abdominal pelvis CT yesterday which did show some fluid collection with a drainage catheter in SILVIO drain is mostly pulling out bloodstained secretion likely representing hematoma 4-patient white count is down to 17.9 today patient to continue current treatment of Zosyn, daptomycin and Diflucan while inpatient continue supportive care Dictation was produced using [employer] dictation software. please excuse any grammatical, word or spelling errors. Time with Patient: Less than 30
--- NOTE | 2023-10-09 14:58 | P.PN ---
Subjective Progress Note Date: 10/08/23 Principal diagnosis: Reason for follow-up is perforated diverticulitis Patient is a 63-year-old female past medical history significant for COPD vasculitis history of acute kidney injury secondary to ANCA vasculitis presenting to the hospital with shortness of breath and abdominal pain has been diagnosed with a perforated sigmoid diverticulitis in this patient who is status post diagnostic laparoscopic sigmoid colectomy with end colostomy. On today's evaluation that is 10/08/2023,the patient denies any fever or any chills, patient is breathing comfortably on 4 L current oxygen, the patient denies chest pain shortness of breath and no significant cough, patient denies abdominal pain, no nausea vomiting did however the colostomy bag. Patient white count is down to 21.98, creatinine is 2.4 Objective - Vital Signs Vital signs: Vital Signs Temp 97.5 F L 10/08/23 12:54 Pulse 72 10/08/23 15:55 Resp 17 10/08/23 12:54 BP 130/80 10/08/23 12:54 Pulse Ox 94 L 10/08/23 12:54 FiO2 35 09/21/23 20:21 Intake & Output 10/07/23 10/08/23 10/08/23 18:59 06:59 18:59 Intake Total 700 200 Output Total 284 201 4387 Balance 245 -320 -1095 Weight 60 kg Intake: Oral 700 200 Output: Drainage 80 320 120 SILVIO Abdomen 80 320 120 Urine 300 1100 Stool 75 75 Other: Voiding Method External Catheter External Catheter External Catheter # Voids 1 - Exam GENERAL DESCRIPTION: Middle-aged female lying in bed in no distress RESPIRATORY SYSTEM: Unlabored breathing , decreased breath sounds at bases HEART: S1 S2 regular rate and rhythm , ABDOMEN: Soft , patient did have some bruising around her incision no drainage was noticed EXTREMITIES: No edema feet - Labs CBC & Chem 7: 10/09/23 07:21 10/09/23 13:08 Labs: Abnormal Lab Results - Last 24 Hours (Table) 10/06/23 10/08/23 10/08/23 Range/Units 15:29 04:58 04:58 WBC 21.98 H (4.50-10.00) X 10*3/uL RBC 2.33 L (4.10-5.20) X 10*6/uL Hgb 7.4 L (12.0-15.0) g/dL Hct 23.4 L (37.2-46.3) % MCV 100.4 H (80.0-97.0) FL MCHC 31.6 L (32.0-37.0) g/dL RDW 23.4 H (11.5-14.5) % Immature Gran # 0.55 H (0.00-0.04) X 10*3/uL Neutrophils # 21.09 H (1.80-7.70) X 10*3/uL Lymphocytes # 0 L (0.90-5.00) X 10*3/uL Eosinophils # 0.01 L (0.04-0.35) X 10*3/uL NRBC/100 WBC Diff 1.17 H (0.00-0.01) X 10*3/uL Anion Gap 14.00 H (4.00-12.00) mmol/L BUN 41.7 H (9.0-27.0) mg/dL Creatinine 2.4 H (0.6-1.5) mg/dL Est GFR (CKD-EPI) 22 L (>=60) Glucose 135 H (70-110) mg/dL Calcium 8.1 L (8.7-10.3) mg/dL Total Protein 4.2 L (6.2-8.2) g/dL Albumin 2.8 L (3.8-4.9) g/dL Globulin 1.4 L (1.6-3.3) g/dL Tot Complement (CH50) >97 H (42 - 95) U/mL Assessment and Plan (1) Perforation of sigmoid colon due to diverticulitis Current Visit: Yes Status: Acute Code(s): K57.20 - DVTRCLI OF LG INT W PERFORATION AND ABSCESS W/O BLEEDING SNOMED Code(s): 2656521708880669 (2) Peritonitis Current Visit: Yes Status: Acute Code(s): K65.9 - PERITONITIS, UNSPECIFIED SNOMED Code(s): 70622708 (3) Leukocytosis Current Visit: No Status: Acute Code(s): D72.829 - ELEVATED WHITE BLOOD CELL COUNT, UNSPECIFIED SNOMED Code(s): 503158457 (4) Sepsis Current Visit: Yes Status: Acute Code(s): A41.9 - SEPSIS, UNSPECIFIED ORGANISM SNOMED Code(s): 88629307 Plan: 1patient presented to the hospital with sepsis in this patient who did have a fever tachycardia meeting criteria for SIRS source is likely perforated divertic ulitis with peritonitis and need to cover for the enteric gram-negative both aerobes and anaerobes patient also have complaint of increasing shortness of breath and cough CT shows bilateral lower lobe consolidation, possible pneumonia 2-patient is status post diagnostic laparoscopy sigmoid resection and end colostomy abdominal culture currently growing Enterococcus faecium and faecalis and Cha 3-patient is afebrile , patient did have abdominal pelvis CT yesterday which did show some fluid collection with a drainage catheter in SILVIO drain is mostly pulling out bloodstained secretion likely representing hematoma 4-patient white count is down to 21,000 to continue with Zosyn, daptomycin and Diflucan and monitor clinical course closely Dictation was produced using [employer] dictation software. please excuse any grammatical, word or spelling errors. Time with Patient: Less than 30
--- NOTE | 2023-10-09 17:38 | P.PN ---
Subjective Patient is seen for follow-up for acute kidney injury. History of hemodialysis dependent acute kidney injury with recovery of renal function and patient had been off of dialysis for about 3 weeks. Restarted on dialysis this admission due to severe volume overload and worsening renal function. Oxygen requirement decreased but patient remains quite debilitated. There are plans for discharge to subacute rehab. No significant complaints today. Potassium was low at 2.8,? Erroneous, will recheck. Objective - Vital Signs Vital signs: Vital Signs Temp 98.6 F 10/09/23 14:04 Pulse 78 10/09/23 15:12 Resp 17 10/09/23 14:04 BP 145/77 10/09/23 14:04 Pulse Ox 97 10/09/23 14:04 FiO2 35 09/21/23 20:21 Intake & Output 10/08/23 10/09/23 10/09/23 18:59 06:59 18:59 Intake Total 600 Output Total 5623 630 Balance -5095 -630 Weight 60 kg Intake: Oral 200 Hemodialysis 400 Output: Drainage 120 80 SILVIO Abdomen 120 80 Urine 1100 300 Stool 75 250 Hemodialysis 2400 Hemodialysis Net Amount 2000 Other: Voiding Method External Catheter External Catheter External Catheter - Exam patient is awake, comfortable, mild respiratory distress. Examination of the heart S1 and S2 Examination of the lungs bilateral breath sounds are heard Abdomen is soft ,mild tenderness, drain noted Examination of lower extremities shows no edema [employer]ILER/CH[employer]ER [employer] exam grossly intact - Labs CBC & Chem 7: 10/09/23 07:21 10/09/23 13:08 Labs: Abnormal Lab Results - Last 24 Hours (Table) 10/09/23 10/09/23 10/09/23 Range/Units 07:21 07:21 13:08 WBC 17.9 H (3.8-10.6) k/uL RBC 2.72 L (3.80-5.40) m/uL Hgb 8.8 L (11.4-16.0) gm/dL Hct 27.5 L (34.0-46.0) % MCV 101.4 H D (80.0-100.0) fL RDW 22.7 H (11.5-15.5) % Neutrophils # 17.3 H (1.3-7.7) k/uL Lymphocytes # 0.4 L (1.0-4.8) k/uL Macrocytosis Marked A Sodium 131 L (137-145) mmol/L Potassium 2.8 L 3.1 L (3.5-5.1) mmol/L BUN 31 H (7-17) mg/dL Creatinine 1.82 H (0.52-1.04) mg/dL Glucose 119 H (74-99) mg/dL AST 38 H (14-36) U/L Total Protein 4.5 L (6.3-8.2) g/dL Albumin 2.6 L (3.5-5.0) g/dL Assessment and Plan Assessment: 1. 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 Also component of cardiorenal syndrome. Renal function slowly worsening this admission. Creatinine was 1.9 dated September 07, 2023. Patient was hemodialysis dependent but renal function had improved and patient was off of dialysis for about 3 weeks. Restarted hemodialysis on 09/28/2023 due to worsening renal function and volume overload. Ultrasound from June 2023 showed no evidence of hydronephrosis. 2. ANCA vasculitis maintained on prednisone. Status post 2 doses of IV rituximab 1 g completed August 2023. Maintained on 30 mg of prednisone outpatient. Repeat serologies are negative. 3. Acute on chronic systolic CHF ejection fraction of 25 to 30% with severe pulmonary hypertension and moderate tricuspid regurgitation. 4. Acute hypoxic respiratory failure secondary to COPD exacerbation as well as CHF. Some improvement in chest x-ray noted with ultrafiltration with hemodialysis. 5. History of PE maintained on anticoagulation. 6. Anemia. high ferritin noted. packed RBCs transfusion today. 7. Perforated sigmoid colon due to diverticulitis, status post diagnostic laparoscopy, sigmoid colectomy with end colostomy 09/23/2023. 8. Volume overload, improving. Status post UF close to 12 L so far with hemodialysis. Plan: Continue with torsemide. Replace potassium can switch to oral prednisone Hemodialysis on Wednesday schedule.
[2023-10-09] MEDS: POTASSIUM CHLORIDE 20 MEQ in WATER FOR INJECTION 1 100ML.BAG IVPB STA (19:35)
--- NOTE | 2023-10-09 19:37 | P.PN ---
Subjective Patient seen and evaluated at bedside. no acute issues overnight. Objective - Vital Signs Vital signs: Vital Signs Temp 98.6 F 10/09/23 14:04 Pulse 76 10/09/23 18:44 Resp 17 10/09/23 14:04 BP 145/77 10/09/23 14:04 Pulse Ox 97 10/09/23 14:04 FiO2 35 09/21/23 20:21 Intake & Output 10/09/23 10/09/23 10/10/23 06:59 18:59 06:59 Intake Total 620 Output Total 630 640 Balance -630 -20 Weight 60 kg Intake: IV 120 0.9 120 Oral 500 Output: Drainage 80 40 SILVIO Abdomen 80 40 Urine 300 500 Stool 250 100 Other: Voiding Method External Catheter External Catheter - Exam gen:Nad cv; rrr pul: non labored breathing abd: soft, non tender to palpation, ostomy patent - Labs CBC & Chem 7: 10/09/23 07:21 10/09/23 13:08 Labs: Abnormal Lab Results - Last 24 Hours (Table) 10/09/23 10/09/23 10/09/23 Range/Units 07:21 07:21 13:08 WBC 17.9 H (3.8-10.6) k/uL RBC 2.72 L (3.80-5.40) m/uL Hgb 8.8 L (11.4-16.0) gm/dL Hct 27.5 L (34.0-46.0) % MCV 101.4 H D (80.0-100.0) fL RDW 22.7 H (11.5-15.5) % Neutrophils # 17.3 H (1.3-7.7) k/uL Lymphocytes # 0.4 L (1.0-4.8) k/uL Macrocytosis Marked A Sodium 131 L (137-145) mmol/L Potassium 2.8 L 3.1 L (3.5-5.1) mmol/L BUN 31 H (7-17) mg/dL Creatinine 1.82 H (0.52-1.04) mg/dL Glucose 119 H (74-99) mg/dL AST 38 H (14-36) U/L Total Protein 4.5 L (6.3-8.2) g/dL Albumin 2.6 L (3.5-5.0) g/dL Assessment and Plan Plan: 63-year-old female with sigmoid colon perforation. s/p hartmanns - Continue regular diet. -Continue with physical therapy. -Monitor labs. Continue antibiotics. Keep drain in place. Continue holding anticoagulation. -Anticipate possible transfer to rehab early next week. Time with Patient: Greater than 30
--- NOTE | 2023-10-10 09:05 | XR ---
EXAM: XR chest 1V portable CLINICAL INDICATION:Female, 63 years old with history of Shortness of breath; [facility] COMPARISON: 10/08/2023 TECHNIQUE: Chest single view. FINDINGS: Stable tunneled right chest dialysis catheter with tip over the inferior SVC. Tubing and extraneous densities over the chest. Cardiomediastinal silhouette is stable. Heart size is normal. Partially calcified aorta. No vascular congestion or hilar enlargement. Lungs again appear hyperinflated with areas of relative lucency and mild diffuse interstitial coarsen ing with some flattening of the diaphragm, findings suggestive of COPD. Similar blunting of the left more than right costophrenic angles suggesting small effusions and atelectasis. Mild right basilar in filtrate or atelectasis. No visualized pneumothorax. Bones and soft tissues appear grossly stable. IMPRESSION: 1. COPD changes suggested. 2. Similar blunting of the left more than right costophrenic angles suggesting small effusions and a telectasis. Mild right basilar infiltrate or atelectasis.
[2023-10-10 09:40] LABS: ALT 23 U/L (8-44); AST 34 U/L (13-35); Albumin 2.7 g/dL (3.8-4.9); Albumin/Globulin Ratio 2.08 Ratio (1.60-3.17); Alkaline Phosphatase 77 U/L (41-126); Basophils # (A) 0.03 X 10*3/uL (0.00-0.10); Basophils % (A) 0.2 %; Blood Urea Nitrogen 40.5 mg/dL (9.0-27.0); Calcium 8.1 mg/dL (8.7-10.3); Carbon Dioxide 24.4 mmol/L (21.6-31.8); Chloride 98 mmol/L (96-109); Eosinophils # (A) 0 X 10*3/uL (0.04-0.35); Eosinophils % (A) 0 %; Globulin 1.3 g/dL (1.6-3.3); Glucose 95 mg/dL (70-110); HCT 23.5 % (37.2-46.3); HGB 7.5 g/dL (12.0-15.0); Lymphocytes # (A) 0.12 X 10*3/uL (0.90-5.00); Lymphocytes % (A) 0.8 %; MCH 32.1 pg (27.0-32.0); MCHC 31.9 g/dL (32.0-37.0); MCV 100.4 FL (80.0-97.0); Mean Platelet Volume 10.8 FL (9.5-12.2); Monocytes # (A) 0.11 X 10*3/uL (0.20-1.00); Monocytes % (A) 0.7 %; NRBC Per 100 WBC 0.07 X 10*3/uL (0.00-0.01); Neutrophils % (A) 97.5 %; Platelet Count 147 X 10*3/uL (140-440); Potassium 4.3 mmol/L (3.5-5.5); RBC 2.34 X 10*6/uL (4.10-5.20); RDW 23.8 % (11.5-14.5); Sodium 135 mmol/L (135-145); Total Bilirubin 0.4 mg/dL (0.3-1.2); WBC 15.59 X 10*3/uL (4.50-10.00)
--- NOTE | 2023-10-10 10:15 | P.PN ---
Subjective Progress Note Date: 10/10/23 This is a 63-year-old female patient of Dr. Daniels who presented to the ER with concerns of increased shortness of breath. Patient was recently admitted at [facility] last week for similar symptoms but did leave AMA prior to completion of treatment. Patient was alsopatient was also recently admitted recently admitted and transferred to [facility] and transferred to [facility] due to diagnosis of vasculitis and required hemodialysis during the hospital stay patient also had episode of pulmonary embolism in which she was started on Coumadin. Patient recently had hemodialysis catheter DC'd.. Additional medical history includes COPD and ex-smoker. Chest x-ray completed in ER showing COPD with superimposed interstitial opacities possible interstitial pulmonary edema versus atypicalCOPD with superimposed interstitial bases possible interstitial pulmonary edema versus atypical pneumonitis. Lab work revealing BNP level 60,000.. [id number] 0.205, 0.403 and 0.521. Creatinine 1.56 bun 47. White blood cell 27.9 hemoglobin 10.5 . Patient was started on Zithromax and Rocephin. Given dose of IV Lasix. Started on heparin drip for elevated troponins. Cardiology pulmonary and nephrology services consulted. Cardiology pulmonary and nephrology service is consulted. Current vital signs Temp 97.3, heart rate 95, respiratory rate 18, blood pressure 143/88 with a pulse ox of 96% on 2 L. On 09/23/2023 patient was seen and examined on the medical floor she is alert and oriented x 3 in no apparent distress, she started complaining of severe abdominal pain in the bilateral lower quadrants this morning, otherwise she denies any complaints there is no fever or chills no headache or dizziness no chest pain no shortness of breath no cough no nausea or vomiting no diarrhea no blood in the stools no burning with urination no frequency or urgency and no hematuria, CT scan of the abdomen and pelvis without contrast was ordered, will follow closely On 09/24/2023 Patient's alert and oriented 3. Patient is status post diagnostic laparoscopy sigmoid colectomy with end colostomy secondary to perforated sigmoid diverticulitis. Patient is currently postop day 1. Patient was transferred to the intensive care unit postoperatively but has been extubated to 2 L. Patient remains on IV Zosyn. Vertical care, nephrology, surgical, infectious disease service is following. Patient denies chest pain or shortness breath. Patient denies nausea vomiting or diarrhea. Burning or frequency On 09/25/2023 patient was seen and examined on the medical floor, she is alert and oriented x 3 in no apparent distress, there is no fever or chills no headache or dizziness no chest pain no shortness of breath no cough no nausea or vomiting no abdominal pain no diarrhea and no urinary symptoms, patient was noticed by her nurse to have an equal pupils, patient denies any previous knowl edge of abnormal pupil size, CT scan of the brain and neurology consultation will be initiated, hemoglobin today is down to 6.7 and patient will be given 1 unit of red blood cells. On 09/26/2023 patient is alert and oriented x 3. Patient has been tolerating full liquid diet. Patient el on IV Zosyn. Neurology services are following. Current vital signs Temp 98.2, rate 85, respiratory rate 15, blood pressure 151/89 with a pulse ox of 95% on 2 L. Patient denies chest pain or shortness of breath. Patient denies nausea vomiting or diarrhea. Patient denies any urinary burning or frequency. On 09/27/2023 patient was seen and examined on the medical floor, she is alert and oriented x 3 in no distress she denies any symptoms at this time there is no fever or chills, no headache or dizziness no chest pain no shortness of breath no cough no nausea or vomiting no abdominal pain no diarrhea no urinary symptoms On 09/28/2023 patient was seen and examined on the medical floor she is alert and oriented in no apparent distress there is no fever or chills no headache or dizziness no chest pain no shortness of breath no cough no nausea or vomiting no abdominal pain no diarrhea no urinary symptoms multiple specialist input reviewed today will follow in a.m. on 09/29/2023atient is alert and oriented 3. Patient underwent hemodialysis yesterday patient remains on IV steroids at [facility] and Zosyn. White blood cell trending down 17.76.current vital signs temp 97.7, heart rate 84, resp iratory rate 17, blood pressure 157/99 with pulse ox 98% on 4 L on 09/29/2024 patient's alert and oriented 3 patientto have hemodialysis today. Creatinine 2.6 bun 46.3.patient remains on Zosyn, Diflucan and daptomycin. Patient also remains on IV Lasix. Patient maintained on full liquid diet per surgical services. This time patient denies chest pain or shortness of breath. Patient denies nausea vomiting or diarrhea. Patient denies any urinary burning or frequency on 10/01/2023 patient is alert and oriented 3. Patient's diet has been advanced per surgical services. Patient denies chest pain or shortness of breath. Patient denies nausea vomiting or diarrhea. Patient denies any urinary burning or frequency.white blood cell increasing to 23. Patient remains on IV Zosyn, daptomycin and Diflucan. Infectious disease services are following.current vital signs temp 97.5, heart rate 75, respiratory rate 18, blood pressure 158/89 with pulse ox 97% on 4 L On 10/02/2023 patient was seen and examined on the medical floor she is alert and oriented x 3 in no apparent distress there is no fever or chills no headache or dizziness no chest pain no shortness of breath no cough no nausea or vomiting no abdominal pain no diarrhea and no urinary symptoms. Currently she is receiving hemodialysis will continue with current management will follow closely On 10/03/2023 patient is alert and oriented x 3. Patient reports she just does not feel too well today. Current current vital signs Temp 97.5, heart rate 79, respiratory rate 17, blood pressure 118/76 with pulse ox of 99% on 3 L. Lab work currently pending. Patient denies chest pain or shortness of breath. Patient denies nausea vomiting or diarrhea. Patient denies any urinary burning or frequency. Patient has been tolerating low fiber diet. On 10/04/2023 patient was seen and examined on the medical floor she is alert and oriented x 3 in no apparent distress she is complaining of generalized fatigue otherwise she denies any complaints there is no fever or chills no headache or dizziness no chest pain no shortness of breath no cough no nausea or vomiting no abdominal pain no diarrhea no urinary symptoms, hemoglobin today is down to 6.0, 1 unit of red blood cell transfusion was ordered, patient is followed by nephrology and is scheduled for hemodialysis today. On 10/05/19 2patient's alert and oriented 3. Hemoglobin 6.7 and additional unit of PRBCs has been ordered. per surgical services concerns of possible hematoma. Computed tomography scan of abdomen has been ordered.white blood cell also elevated at 34. Infectious disease services are following. Current vital signs temp 91, heart rate 72, respiratory rate 17, blood pressure 137/81 with a pulse ox of 97% on 3 L On 10/06/2023 patient is alert and oriented 3. hemoglobin 7.7, white blood cell 24.1. Patient currently getting hemodialysis. CT of abdomen and pelvis was completed awaiting results per surgical services concerns about possible hematoma. Patient remains on IV daptomycin and Zosyn. Patient denies chest pain or shortness breath. Patient denies nausea vomiting or diarrhea. Patient denies any urinary burning or frequency On 10/07/2023 patient was seen and examined on the medical floor she is alert and oriented in no apparent distress, she denies any complaints at this time vital exam reveals a temperature of 97.8 pulse 71 respirations 16 blood pressure 147/76 pulse ox 95% on 3 L nasal cannula, white blood count is 23.8 hemoglobin 7.8 platelet count 167, abdominal wound culture is positive for Enterococcus faecium and Enterococcus faecalis VRE and Cha albicans, Dr. Benton infectious disease following, currently maintained on daptomycin, will continue to follow closely On 10/08/2023 patient's alert and oriented 3.patient apparently had episode of increased congestion and shortness of breath this a.m. but reports that she had immediate relief after blowing her nose. Patient to get hemodialysis. At this time patient denies chest pain or shortness of breath. Patient denies nausea vomiting or diarrhea. Patient denies any urinary burning or frequency. Current vital signs temp 97.4, her 82, respiratory rate 17, blood pressure 139/70 with pulse ox 97% on 3 Lpatient will likely need ECF upon discharge PT OT service is consulted On 10/09/2023 patient was seen and examined on the medical floor she is alert and oriented x 3 in no apparent distress, there is no fever or chills no headache or dizziness no chest pain no shortness of breath no cough no nausea or vomiting no abdominal pain no diarrhea no urinary symptoms, vital exam reveals a temperature of 97.6 pulse 72 respiration 17 blood pressure 142/77 pulse ox 91% on 4 L nasal cannula, white blood count 17.9 hemoglobin 8.8 platelet count 179 potassium 2.8 BUN 31 creatinine 1.82 patient will be given 1 dose of IV potassium chloride 20 mEq, recheck labs in a.m., nephrology to follow, patient is maintained on hemodialysis on 10/10/2023 patient's alert and oriented 3. Patient is currently resting comfortably in bed. She is having more upper respiratory congestion encourage patient to continue the cough and deep breath. current vital signs temp 97.7, heart rate 75, respiratory rate 18, blood pressure 138/71 with a pulse ox of 91% on 2 L. Patient remains on Zosyn and vancomycin and Diflucan per ID hemodialysis Wednesday Objective - Vital Signs Vital signs: Vital Signs Temp 97.7 F 10/10/23 06:47 Pulse 84 10/10/23 08:44 Resp 18 10/10/23 06:47 BP 172/85 10/10/23 06:47 Pulse Ox 91 L 10/10/23 06:47 FiO2 35 09/21/23 20:21 Intake & Output 10/09/23 10/10/23 10/10/23 18:59 06:59 18:59 Intake Total 620 Output Total 640 550 Balance -20 -550 Weight 62.5 kg Intake: IV 120 0.9 120 Oral 500 Output: Drainage 40 SILVIO Abdomen 40 Urine 500 550 Stool 100 Other: Voiding Method External Catheter External Catheter External Catheter - Exam Physical examHead normocephalic Neck supple Lungs diminished bilaterally Heart regular rate and rhythm S1-S2, no rub or gallop Abdomen is soft with mild diffuse tenderness especially in the pelvic area bilaterally no organomegaly no palpable masses Extremities no edema Neuro alert and orientated to 3 - Labs CBC & Chem 7: 10/10/23 06:20 10/10/23 06:20 Labs: Abnormal Lab Results - Last 24 Hours (Table) 10/09/23 10/10/23 10/10/23 Range/Units 13:08 06:20 06:20 WBC 15.59 H (4.50-10.00) X 10*3/uL RBC 2.34 L (4.10-5.20) X 10*6/uL Hgb 7.5 L (12.0-15.0) g/dL Hct 23.5 L (37.2-46.3) % MCV 100.4 H (80.0-97.0) FL MCH 32.1 H (27.0-32.0) pg MCHC 31.9 L (32.0-37.0) g/dL RDW 23.8 H (11.5-14.5) % Immature Gran # 0.13 H (0.00-0.04) X 10*3/uL Neutrophils # 15.20 H (1.80-7.70) X 10*3/uL Lymphocytes # 0.12 L (0.90-5.00) X 10*3/uL Monocytes # 0.11 L (0.20-1.00) X 10*3/uL Eosinophils # 0 L (0.04-0.35) X 10*3/uL NRBC/100 WBC Diff 0.07 H (0.00-0.01) X 10*3/uL Potassium 3.1 L (3.5-5.1) mmol/L Anion Gap 12.60 H (4.00-12.00) mmol/L BUN 40.5 H (9.0-27.0) mg/dL Creatinine 2.5 H (0.6-1.5) mg/dL Est GFR (CKD-EPI) 21 L (>=60) Calcium 8.1 L (8.7-10.3) mg/dL Total Protein 4.0 L (6.2-8.2) g/dL Albumin 2.7 L (3.8-4.9) g/dL Globulin 1.3 L (1.6-3.3) g/dL Assessment and Plan Assessment: Acute hypoxic respiratory failure secondary to acute exacerbation of COPD and acute systolic congestive heart failure Acute exacerbation of COPD. Patient started on IV steroids Acute systolic congestive heart failure Perforated sigmoid diverticulitis status post sigmoid colectomy with end colostomy on 09/23/2023 Elevated troponins, likely related to renal failure, seen by cardiology no intervention recommended at this time Acute on chronic kidney disease Recent diagnosis of vasculitis at [facility] Recent history of PE/DVT maintained on Coumadin History of cardiomyopathy with EF of 15 to 20% History of tobacco abuse recently quit Unequal pupil size. Neurology service is following Concerns for possible hematoma per surgical services patient to receive a third unit of PRBCs computed tomography scan of abdomen ordered DVT prophylaxis lovenox. GI prophylaxis Protonix Pulmonary, cardiology and nephrology services consulted Patient started on IV steroids and IV antibiotics patient started back on hemodialysis
--- NOTE | 2023-10-10 11:02 | P.PN ---
Subjective Progress Note Date: 10/10/23 This is a 63-year-old female patient with a known history of chronic obstructive pulmonary disease, former smoker, previous acute kidney injury requiring dialysis that she completed approximately 2 weeks ago. She presented here to the emergency room today with increasing shortness of breath. Symptoms started just this morning. No fever or chills. No cough or congestion. Mainly dyspnea on minimal exertion. Chest x-ray reveals evidence of COPD with superimposed interstitial opacities, possible pulmonary edema versus atypical pneumonia. White count 27.9. Hemoglobin 10.5. Platelets 294. INR 1.3. Sodium 136. Potassium 4.3. Bicarb 30. BUN 47. Creatinine 1.56. Glucose 196. Troponin 0.205. proBNP 60,000. The patient is seen in consultation in the emergency department. She is currently sitting up on the stretcher. Awake and alert. On BiPAP 14/5 and 40% FiO2 to maintain O2 saturations in the 90s. Been initiated on a heparin drip. Initiated on antibiotics, bronchodilators and steroids. The patient is seen today September 22, 2023 in follow-up in the emergency department. She is awake and alert in no acute distress. Breathing easier today compared to yesterday. She is maintaining good O2 saturations in the 90s on 2 L/min per nasal cannula. She has been off the BiPAP. She remains on a heparin drip. Peak troponin 0.521. She is continued on DuoNeb inhalations, Symbicort, Solu-Medrol. She is continued on ceftriaxone. Chest x-ray shows diffuse interstitial opacities with slight improvement. The patient is seen today September 27, 2023 in follow-up on the regular medical [facility] or. She is currently sitting up in a chair. Awake and alert in no acute distress. She is still receiving oxygen at 6 L/min per nasal cannula. Lactated Ringer's at 75 MLS per hour. She did have an episode of shortness of breath and anxiety last evening. She states she is feeling better today. X-ray reveals evidence of fluid volume overload. No focal consolidation, pneumothorax or pleural effusion. Right internal jugular catheter in place. She is status post 1 unit of packed red blood cells and 2 units of fresh frozen plasma this admission. Abdominal fluid cultures were positive for bacteroids. Wound culture positive for Enterococcus faecium VRE, Enterococcus faecalis VRE and Cha. White count 20.1. Hemoglobin 8.7. Platelets 227. Sodium 135. Potassium 5.8. Bicarb 23. BUN 63. Creatinine 2.46. Glucose 124. She is continued on DuoNeb inhalations, Symbicort, daptomycin and Zosyn. Lovenox for DVT prophylaxis. The patient is seen today September 28, 2023 in follow-up on the regular medical floor. She is currently resting in bed. Awake and alert in no acute distress. Feeling better today compared to yesterday. She is maintaining good O2 saturations in the 90s on 4 L/min per nasal cannula. No IV fluids. She is continued on daptomycin and Zosyn. Chest x-ray reveals right pleural effusion with pulmonary vascular congestion. Left lung is relatively clear. She remains on DuoNeb ventilations, Pulmicort and Perforomist inhalations, Solu-Medrol. Lovenox for DVT prophylaxis. Sodium 131. Potassium 5.1. Bicarb 23. BUN 69. Creatinine 2.68. Glucose 146. She was given Lasix 60 mg IVP x 1. She is currently in a -1.5 L balance. The patient is seen today September 29, 2023 in follow-up on the regular medical floor. She is currently sitting up in bed. Awake and alert in no acute distress. Maintaining good O2 saturations in the 90s on 4 L/min per nasal neida sorin. She is status post 1 unit of packed red blood cells and 2 units of platelets fresh frozen plasma this admission. Abdominal fluid and wound cultures were positive for Enterococcus faecium VRE, Enterococcus faecalis VRE, Cha. White count 17.7. Hemoglobin 7.9. Platelets 233. Sodium 136. Potassium 3.5. Bicarb 27. BUN 33. Creatinine 2.0. Glucose 152. She remains on DuoNeb inhalations, Pulmicort and Perforomist inhalations, Solu-Medrol. Antibiotics in the form of daptomycin and Zosyn. The patient is seen today September 30, 2023 in follow-up on the regular medical floor. She is resting comfortably in bed. Maintaining good O2 saturations in the 90s on 5 L/min per nasal cannula. She is status post 1 unit of packed red blood cells and 2 fresh frozen plasma this admission. Abdominal cultures were positive for Enterococcus faecium and Enterococcus faecalis both VRE. White cou nt 19.6. Hemoglobin 7.5. Platelets 225. INR 1.4. Sodium 137. Potassium 3.8. Bicarb 24. BUN 46. Creatinine 2.6. Glucose 160. She is continued on DuoNeb inhalations, Symbicort, Solu-Medrol. Antibiotics in the form of Zosyn and daptomycin. Lovenox for DVT prophylaxis. Currently on Lasix 60 mg IV every 12 hours. Currently in a -5.9 L balance. The patient is seen today October 01, 2023 in follow-up on the regular medical floor. She is sitting up in bed. Awake and alert in no acute distress. Feeling stronger each day. She is maintaining O2 saturations in the 90s on 4 L/min per nasal cannula. She has been resumed on hemodialysis. She remains on Zosyn and daptomycin. Abdominal cultures were positive for Enterococcus faecium and Enterococcus faecalis both VRE. She remains on DuoNeb inhalations, Symbicort, Solu-Medrol. Remains on Lovenox. White count 23.7. Hemoglobin 8.2. Platelets 238. INR 1.64. Sodium 136. Potassium 4.3. Bicarb 26. BUN 27. Creatinine 1.9. Glucose 140. The patient is seen today October 02, 2023 in follow-up on the regular medical floor. She is sitting up at the bedside. Awake and alert in no acute distress. She has had some issues with dizziness while up. She did receive hemodialysis yesterday with 1.9 L removed. The plan is for hemodialysis again today. She is maintaining good O2 saturations in the 90s on 3.5 L/min per nasal cannula. Normal saline at KVO. She is continued on DuoNeb inhalations, Symbicort, Solu- Medrol. Lovenox for anticoagulation. She remains on daptomycin and Zosyn. Anticoagulated with warfarin. INR 2.0. She remains on Lasix 60 mg every 12 hours. Currently in a -5 L balance. The patient is seen today October 03, 2023 in follow-up on the regular medical floor. She is sitting up at the bedside. Awake and alert in no acute distress. Feeling stronger each day. She maintains a good O2 saturations in the 90s on 3 L/min per nasal cannula. No IV fluids. Chest x-ray continues to small small atelectasis/effusions. Stable. She remains on DuoNeb inhalations, Symbicort, Solu-Medrol. Antibiotics in the form of Zosyn. She remains on Lasix 60 mg IV every 12 hours. Currently in a -5 L balance. Plan is for hemodialysis on Wednesday, October 04, 2023. The patient is seen today October 04, 2023 in follow-up on the regular medical floor. She is awake and alert in no acute distress. Sitting up in bed. Curre ntly receiving hemodialysis. She is maintaining O2 saturations in the 90s 3 L/min per nasal cannula. She has been afebrile. Hemodynamically stable. Her hemoglobin this morning was 6.0. She is to receive a second unit of packed red blood cells. White count 34.6. Platelets 191. INR 4.6. Sodium 135. Potassium 5.0. Bicarb 24. BUN 50. Creatinine 2.7. Abdominal wound cultures were positive for Enterococcus faecium VRE. She remains on DuoNeb inhalations, Symbicort, Solu-Medrol. Antibiotics in the form of daptomycin and Zosyn. The patient is seen today October 05, 2023 in follow-up on the regular medical floor. She is currently resting comfortably in bed. Awake and alert in no acute distress. She is maintaining O2 saturations in the 90s on 3 L/min per nasal cannula. She is receiving a 3rd unit of packed red blood cells today for hemoglobin of 6.7. Platelets 192. White count 29.2. INR 1.1. Abdominal wound cultures were positive for Enterococcus faecium VRE. She remains on DuoNeb inhalations, Symbicort, Solu-Medrol. Antibiotics in the form of daptomycin and Zosyn. She remains on Lasix 60 mg IV every 12 hours. Currently in a -2 L balance. The patient is seen today October 07, 2023 in follow-up on the regular medical floor. He is awake and alert in no acute distress. Resting comfortably in bed. Maintaining O2 saturations in the 90s on 3 L/min per nasal cannula. No new labs today. Abdominal wound cultures were positive for Enterococcus faecium VRE. She remains on DuoNeb inhalations, Symbicort, Solu-Medrol. Antibiotics in the form of daptomycin and Zosyn. The patient is seen today October 08, 2023 in follow-up on the regular medical floor. She is currently resting comfortably in bed. Awake and alert in no acute distress. Plan is for hemodialysis today. She continues to maintain good O2 saturations in the upper 90s on 3 L/min per nasal cannula. No worsening shortness of breath, cough or congestion. Chest x-ray reveals no acute pulmonary process. Evidence of COPD. White count 21.9. Hemoglobin 7.4. Platelets 144. Sodium 136. Potassium 4.1. Bicarb 24. BUN 42. Creatinine 2.4. She remains on daptomycin. Continued on DuoNeb inhalations, Symbicort, Solu-Medrol. The patient is seen today October 09, 2023 in follow-up on the regular medical floor. She is alert and oriented. Denies any worsening shortness of breath, cough or congestion. She is maintaining good O2 saturations in the high 90s on 3 L/min per nasal cannula. She is continue on DuoNeb ventilations, Symbicort, prednisone taper. She remains on antibiotics in the form of daptomycin. White count 17.9. Hemoglobin 8.8. Platelets 179. Sodium 131. Potassium 2.8. Bic arb 28. BUN 31. Creatinine 1.82. Glucose 119. The patient is seen today October 10, 2023 in follow-up on the regular medical floor. She is awake and alert in no acute distress. She is complaining of some chest heaviness this morning. She continues to maintain good O2 saturations in the 90s on 2 L/min per nasal cannula. She is afebrile. Hemodynamically stable. Today's chest x-ray reveals evidence of COPD. There is similar blunting of left greater than right costophrenic angles suggesting small effusions. Some mild atelectasis. She is on a hemodialysis schedule Wednesday. White count 15.5. Hemoglobin 7.5. Platelets 147. Sodium 135. Potassium 4.3. Bicarb 24. BUN 41. Creatinine 2.5. Continued on DuoNeb inhalations, Symbicort, prednisone taper. Remains on daptomycin.. Objective - Vital Signs Vital signs: Vital Signs Temp 97.7 F 10/10/23 06:47 Pulse 84 10/10/23 08:44 Resp 18 10/10/23 06:47 BP 172/85 10/10/23 06:47 Pulse Ox 91 L 10/10/23 06:47 FiO2 35 09/21/23 20:21 Intake & Output 10/09/23 10/10/23 10/10/23 18:59 06:59 18:59 Intake Total 620 Output Total 640 550 Balance -20 -550 Weight 62.5 kg Intake: IV 120 0.9 120 Oral 500 Output: Drainage 40 SILVIO Abdomen 40 Urine 500 550 Stool 100 Other: Voiding Method External Catheter External Catheter External Catheter - Exam GENERAL EXAM: Alert, oriented 63-year-old female, on 2 L/min per nasal cannula, in no apparent distress. HEAD: Normocephalic. EYES: Normal reaction of pupils, equal size. NOSE: Clear with pink turbinates. THROAT: No erythema or exudates. NECK: No masses, no JVD. CHEST: No chest wall deformity. LUNGS: Equal air entry with bibasilar crackles, diminished. CVS: S1 and S2 normal with no audible murmur, regular rhythm. ABDOMEN: Colostomy with stool present. Dressing intact. SPINE: No scoliosis or deformity SKIN: No rashes. Skin tear noted on left hand CENTRAL NERVOUS SYSTEM: No focal deficits, tone is normal in all 4 extremities. EXTREMITIES: There is 1+ peripheral edema. No clubbing, no cyanosis. Peripheral pulses are intact. - Labs CBC & Chem 7: 10/10/23 06:20 10/10/23 06:20 Labs: Abnormal Lab Results - Last 24 Hours (Table) 10/09/23 10/10/23 10/10/23 Range/Units 13:08 06:20 06:20 WBC 15.59 H (4.50-10.00) X 10*3/uL RBC 2.34 L (4.10-5.20) X 10*6/uL Hgb 7.5 L (12.0-15.0) g/dL Hct 23.5 L (37.2-46.3) % MCV 100.4 H (80.0-97.0) FL MCH 32.1 H (27.0-32.0) pg MCHC 31.9 L (32.0-37.0) g/dL RDW 23.8 H (11.5-14.5) % Immature Gran # 0.13 H (0.00-0.04) X 10*3/uL Neutrophils # 15.20 H (1.80-7.70) X 10*3/uL Lymphocytes # 0.12 L (0.90-5.00) X 10*3/uL Monocytes # 0.11 L (0.20-1.00) X 10*3/uL Eosinophils # 0 L (0.04-0.35) X 10*3/uL NRBC/100 WBC Diff 0.07 H (0.00-0.01) X 10*3/uL Potassium 3.1 L (3.5-5.1) mmol/L Anion Gap 12.60 H (4.00-12.00) mmol/L BUN 40.5 H (9.0-27.0) mg/dL Creatinine 2.5 H (0.6-1.5) mg/dL Est GFR (CKD-EPI) 21 L (>=60) Calcium 8.1 L (8.7-10.3) mg/dL Total Protein 4.0 L (6.2-8.2) g/dL Albumin 2.7 L (3.8-4.9) g/dL Globulin 1.3 L (1.6-3.3) g/dL Assessment and Plan Assessment: Acute hypoxemic respiratory failure secondary to an acute exacerbation of chronic obstructive pulmonary disease, acute systolic congestive heart failure Status post exploratory laparotomy, sigmoid colectomy, and end sigmoid colostomy for ruptured sigmoid diverticulum on September 23, 2023. Cultures positive for Enterococcus faecium VRE, Enterococcus faecalis VRE, Cha. Currently on daptomycin Acute kidney injury secondary to ANCA vasculitis and cardiorenal syndrome previously on hemodialysis. Permacath still in place and restarted on hemodialysis 09/28/2023 Leukocytosis, improving Anemia requiring a third unit of packed red blood cells this admission. Current hemoglobin 7.5 Severe cardiomyopathy with an ejection fraction of 25-30 % History of chronic obstructive pulmonary disease Chronic tobacco dependence ANCA vasculitis and was to have had a kidney biopsy in June 2023 unclear if this was done History of PE/DVT, on warfarin Plan: The patient was seen and evaluated Chest x-ray, Labs and medications reviewed Titrate down the FiO2 as tolerated Continue the current treatment plan Remains on daptomycin per ID service Hemodialysis on Wednesday The plan is for [facility] [place] at discharge I have personally seen and examined the patient, performed the documentation and the assessment and plan as written. Number of minutes spent on the visit: 10.
--- NOTE | 2023-10-10 11:29 | P.PN ---
Subjective Progress Note Date: 10/10/23 Principal diagnosis: Colon perforation Patient had some buttock discomfort bilaterally. Was found to have a blister that popped on both sides. Denies abdominal pain. Tolerating diet. Objective - Vital Signs Vital signs: Vital Signs Temp 97.7 F 10/10/23 06:47 Pulse 84 10/10/23 08:44 Resp 18 10/10/23 06:47 BP 172/85 10/10/23 06:47 Pulse Ox 91 L 10/10/23 06:47 FiO2 35 09/21/23 20:21 Intake & Output 10/09/23 10/10/23 10/10/23 18:59 06:59 18:59 Intake Total 620 Output Total 640 550 Balance -20 -550 Weight 62.5 kg Intake: IV 120 0.9 120 Oral 500 Output: Drainage 40 SILVIO Abdomen 40 Urine 500 550 Stool 100 Other: Voiding Method External Catheter External Catheter External Catheter - Exam Abdomen: Soft, nondistended, incision with ecchymosis present, mild tenderness, ostomy functioning Both buttocks with small 3 x 3 cm area of blisters that had popped, mild in duration, mild tenderness - Labs CBC & Chem 7: 10/10/23 06:20 10/10/23 06:20 Labs: Abnormal Lab Results - Last 24 Hours (Table) 10/09/23 10/10/23 10/10/23 Range/Units 13:08 06:20 06:20 WBC 15.59 H (4.50-10.00) X 10*3/uL RBC 2.34 L (4.10-5.20) X 10*6/uL Hgb 7.5 L (12.0-15.0) g/dL Hct 23.5 L (37.2-46.3) % MCV 100.4 H (80.0-97.0) FL MCH 32.1 H (27.0-32.0) pg MCHC 31.9 L (32.0-37.0) g/dL RDW 23.8 H (11.5-14.5) % Immature Gran # 0.13 H (0.00-0.04) X 10*3/uL Neutrophils # 15.20 H (1.80-7.70) X 10*3/uL Lymphocytes # 0.12 L (0.90-5.00) X 10*3/uL Monocytes # 0.11 L (0.20-1.00) X 10*3/uL Eosinophils # 0 L (0.04-0.35) X 10*3/uL NRBC/100 WBC Diff 0.07 H (0.00-0.01) X 10*3/uL Potassium 3.1 L (3.5-5.1) mmol/L Anion Gap 12.60 H (4.00-12.00) mmol/L BUN 40.5 H (9.0-27.0) mg/dL Creatinine 2.5 H (0.6-1.5) mg/dL Est GFR (CKD-EPI) 21 L (>=60) Calcium 8.1 L (8.7-10.3) mg/dL Total Protein 4.0 L (6.2-8.2) g/dL Albumin 2.7 L (3.8-4.9) g/dL Globulin 1.3 L (1.6-3.3) g/dL Assessment and Plan (1) Perforation of sigmoid colon due to diverticulitis Narrative/Plan: 63-year-old female doing fairly well after previous Winn's procedure. White blood cell count is improving. No significant pain. Continue diet as tolerated. Await plans for possible transfer to rehab facility. Continue offloading. Current Visit: Yes Status: Acute Code(s): K57.20 - DVTRCLI OF LG INT W PERFORATION AND ABSCESS W/O BLEEDING SNOMED Code(s): 6111822232773774
--- NOTE | 2023-10-10 12:46 | P.PN ---
Subjective Patient is seen for follow-up for acute kidney injury. History of hemodialysis dependent acute kidney injury with recovery of renal function and patient had been off of dialysis for about 3 weeks. Restarted on dialysis this admission due to severe volume overload and worsening renal function. Oxygen requirement decreased but patient remains quite debilitated. There are plans for discharge to subacute rehab. No significant complaints today. Objective - Vital Signs Vital signs: Vital Signs Temp 97.7 F 10/10/23 06:47 Pulse 72 10/10/23 12:34 Resp 18 10/10/23 06:47 BP 172/85 10/10/23 06:47 Pulse Ox 91 L 10/10/23 06:47 FiO2 35 09/21/23 20:21 Intake & Output 10/09/23 10/10/23 10/10/23 18:59 06:59 18:59 Intake Total 620 Output Total 640 550 Balance -20 -550 Weight 62.5 kg Intake: IV 120 0.9 120 Oral 500 Output: Drainage 40 SILVIO Abdomen 40 Urine 500 550 Stool 100 Other: Voiding Method External Catheter External Catheter External Catheter - Exam patient is awake, comfortable, mild respiratory distress. 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 - Labs CBC & Chem 7: 10/10/23 06:20 10/10/23 06:20 Labs: Abnormal Lab Results - Last 24 Hours (Table) 10/09/23 10/10/23 10/10/23 Range/Units 13:08 06:20 06:20 WBC 15.59 H (4.50-10.00) X 10*3/uL RBC 2.34 L (4.10-5.20) X 10*6/uL Hgb 7.5 L (12.0-15.0) g/dL Hct 23.5 L (37.2-46.3) % MCV 100.4 H (80.0-97.0) FL MCH 32.1 H (27.0-32.0) pg MCHC 31.9 L (32.0-37.0) g/dL RDW 23.8 H (11.5-14.5) % Immature Gran # 0.13 H (0.00-0.04) X 10*3/uL Neutrophils # 15.20 H (1.80-7.70) X 10*3/uL Lymphocytes # 0.12 L (0.90-5.00) X 10*3/uL Monocytes # 0.11 L (0.20-1.00) X 10*3/uL Eosinophils # 0 L (0.04-0.35) X 10*3/uL NRBC/100 WBC Diff 0.07 H (0.00-0.01) X 10*3/uL Potassium 3.1 L (3.5-5.1) mmol/L Anion Gap 12.60 H (4.00-12.00) mmol/L BUN 40.5 H (9.0-27.0) mg/dL Creatinine 2.5 H (0.6-1.5) mg/dL Est GFR (CKD-EPI) 21 L (>=60) Calcium 8.1 L (8.7-10.3) mg/dL Total Protein 4.0 L (6.2-8.2) g/dL Albumin 2.7 L (3.8-4.9) g/dL Globulin 1.3 L (1.6-3.3) g/dL Assessment and Plan Assessment: 1. 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 Also component of cardiorenal syndrome. Renal function slowly worsening this admission. Creatinine was 1.9 dated September 07, 2023. Patient was hemodialysis dependent but renal function had improved and patient was off of dialysis for about 3 weeks. Restarted hemodialysis on 09/28/2023 due to worsening renal function and volume overload. Ultrasound from June 2023 showed no evidence of hydronephrosis. 2. ANCA vasculitis maintained on prednisone. Status post 2 doses of IV rituximab 1 g completed August 2023. Maintained on 30 mg of prednisone outpatient. Repeat serologies are negative. 3. Acute on chronic systolic CHF ejection fraction of 25 to 30% with severe pulmonary hypertension and moderate tricuspid regurgitation. 4. Acute hypoxic respiratory failure secondary to COPD exacerbation as well as CHF. Some improvement in chest x-ray noted with ultrafiltration with hemodialysis. 5. History of PE maintained on anticoagulation. 6. Anemia. high ferritin noted. packed RBCs transfusion today. 7. Perforated sigmoid colon due to diverticulitis, status post diagnostic laparoscopy, sigmoid colectomy with end colostomy 09/23/2023. 8. Volume overload, improving. Status post UF close to 12 L so far with hemodialysis. Plan: Continue with torsemide. Replace potassium can switch to oral prednisone Hemodialysis on Wednesday schedule.
--- NOTE | 2023-10-10 15:35 | P.PN ---
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 On today's evaluation that is 10/10/2023, the patient continues to be afebrile, the patient is on 2 L current oxygen have been complaining of shortness of breath and congested cough he denies having any nausea no vomiting no abdominal pain did have output in her colostomy bag. Patient white count is down to 15.59, creatinine is 2.5 Objective - Vital Signs Vital signs: Vital Signs Temp 97.9 F 10/10/23 13:50 Pulse 88 10/10/23 13:50 Resp 17 10/10/23 13:50 BP 183/92 10/10/23 13:50 Pulse Ox 90 L 10/10/23 13:50 FiO2 35 09/21/23 20:21 Intake & Output 10/09/23 10/10/23 10/10/23 18:59 06:59 18:59 Intake Total 620 Output Total 640 550 Balance -20 -550 Weight 62.5 kg Intake: IV 120 0.9 120 Oral 500 Output: Drainage 40 SILVIO Abdomen 40 Urine 500 550 Stool 100 Other: Voiding Method External Catheter External Catheter External Catheter - Exam GENERAL DESCRIPTION: Middle-aged female lying in bed in no distress RESPIRATORY SYSTEM: Unlabored breathing , decreased breath sounds at bases HEART: S1 S2 regular rate and rhythm , ABDOMEN: Soft , patient did have some bruising around her incision no drainage was noticed EXTREMITIES: No edema feet - Labs CBC & Chem 7: 10/10/23 06:20 10/10/23 06:20 Labs: Abnormal Lab Results - Last 24 Hours (Table) 10/10/23 10/10/23 Range/Units 06:20 06:20 WBC 15.59 H (4.50-10.00) X 10*3/uL RBC 2.34 L (4.10-5.20) X 10*6/uL Hgb 7.5 L (12.0-15.0) g/dL Hct 23.5 L (37.2-46.3) % MCV 100.4 H (80.0-97.0) FL MCH 32.1 H (27.0-32.0) pg MCHC 31.9 L (32.0-37.0) g/dL RDW 23.8 H (11.5-14.5) % Immature Gran # 0.13 H (0.00-0.04) X 10*3/uL Neutrophils # 15.20 H (1.80-7.70) X 10*3/uL Lymphocytes # 0.12 L (0.90-5.00) X 10*3/uL Monocytes # 0.11 L (0.20-1.00) X 10*3/uL Eosinophils # 0 L (0.04-0.35) X 10*3/uL NRBC/100 WBC Diff 0.07 H (0.00-0.01) X 10*3/uL Anion Gap 12.60 H (4.00-12.00) mmol/L BUN 40.5 H (9.0-27.0) mg/dL Creatinine 2.5 H (0.6-1.5) mg/dL Est GFR (CKD-EPI) 21 L (>=60) Calcium 8.1 L (8.7-10.3) mg/dL Total Protein 4.0 L (6.2-8.2) g/dL Albumin 2.7 L (3.8-4.9) g/dL Globulin 1.3 L (1.6-3.3) g/dL Assessment and Plan (1) Perforation of sigmoid colon due to diverticulitis Current Visit: Yes Status: Acute Code(s): K57.20 - DVTRCLI OF LG INT W PERFORATION AND ABSCESS W/O BLEEDING SNOMED Code(s): 3312280039420412 (2) Peritonitis Current Visit: Yes Status: Acute Code(s): K65.9 - PERITONITIS, UNSPECIFIED SNOMED Code(s): 90517491 (3) Leukocytosis Current Visit: No Status: Acute Code(s): D72.829 - ELEVATED WHITE BLOOD CELL COUNT, UNSPECIFIED SNOMED Code(s): 380482027 (4) Sepsis Current Visit: Yes Status: Acute Code(s): A41.9 - SEPSIS, UNSPECIFIED ORGANISM SNOMED Code(s): 53344531 Plan: 1patient presented to the hospital with sepsis in this patient who did have a fever tachycardia meeting criteria for SIRS source is likely perforated diverticulitis with peritonitis and need to cover for the enteric gram-negative both aerobes and anaerobes patient also have complaint of increasing shortness of breath and cough CT shows bilateral lower lobe consolidation, possible pneumonia 2-patient is status post diagnostic laparoscopy sigmoid resection and end colostomy abdominal culture currently growing Enterococcus faecium and faecalis and Cha 3-patient is afebrile , patient did have abdominal pelvis CT yesterday which did show some fluid collection with a drainage catheter in SILVIO drain is mostly pulling out bloodstained secretion likely representing hematoma 4-patient white count is trending down patient is covered with the daptomycin Diflucan and Zosyn to continue while inpatient and monitor clinical course clos jimmy Dictation was produced using [employer] dictation software. please excuse any grammatical, word or spelling errors. Time with Patient: Less than 30
[2023-10-10 16:33] LABS: ABG HCO3 28 mmol/L (21-25); ABG PCO2 40 mmHg (35-45); ABG PH 7.45 (7.35-7.45); ABG TCO2 29 mmol/L (19-24); Allen Test Performed? Yes
[2023-10-10 16:38] LABS: ABG PO2 51 mmHg (83-108)
[2023-10-10 16:39] LABS: ABG Oxygen Saturation 88.8 % (94-97)
[2023-10-10 22:33] LABS: Glucose,Whole Blood 195 mg/dL (70-110)
[2023-10-10] MEDS ORDERED: Magnesium Replacement Protocol 1 EACH MISC MISCELLANE PRN (22:49)
[2023-10-10] MEDS ORDERED: Potassium Replacement Protocol 1 EACH MISC MISCELLANE PRN (22:49)
[2023-10-11] LABS: Anisocytosis Moderate; Basophils % (A) 0 %; Eosinophils # (A) 0.1 k/uL (0-0.7); Eosinophils % (A) 1 %; HGB 8.3 gm/dL (11.4-16.0); Hypochromasia Marked; Lymphocytes # (A) 0.1 k/uL (1.0-4.8); Lymphocytes % (A) 1 %; MCH 32.5 pg (25.0-35.0); Macrocytosis Marked; Mean Platelet Volume 8.8; Monocytes # (A) 0.2 k/uL (0-1.0); Monocytes % (A) 1 %; Neutrophils # (A) 12.2 k/uL (1.3-7.7); Neutrophils % (A) 97 %; Platelet Count 152 k/uL (150-450); RBC 2.56 m/uL (3.80-5.40); RDW 21.6 % (11.5-15.5); WBC 12.6 k/uL (3.8-10.6)
[2023-10-11] MEDS ORDERED: IPRATROPIUM-ALBUTEROL 3 ML NEB ONE ×2 (00:01→19:45)
[2023-10-11] MEDS ORDERED: TORSEMIDE 20 MG TAB ONE (00:01)
[2023-10-11] MEDS ORDERED: FOLIC ACID 1 MG TAB ONE ×2 (00:01→10:02)
[2023-10-11] MEDS ORDERED: DARBEPOETIN ALFA 60 MCG/0.3 ML SYRINGE ONE (00:01)
[2023-10-11] MEDS ORDERED: hydrALAZINE HCL 20 MG/ML 1 ML VIAL ONE (00:01)
[2023-10-11] MEDS ORDERED: SODIUM CHLORIDE 0.9% 100 ML BAG ONE (00:01)
[2023-10-11] MEDS ORDERED: SYMBICORT 160-4.5 MCG INHALER INHALATION ONE (00:01)
[2023-10-11 00:08] LABS: MCV 101.6 fL (80.0-100.0)
[2023-10-11 00:15] LABS: African American GFR (CKD) 27 (>60 ml/min/1.73 sqM); Anion Gap 5 mmol/L; Blood Urea Nitrogen 54 mg/dL (7-17); Calcium 8.2 mg/dL (8.4-10.2); Carbon Dioxide 25 mmol/L (22-30); Chloride 101 mmol/L (98-107); Glucose 143 mg/dL (74-99); Magnesium 1.9 mg/dL (1.6-2.3); Non-African American GFR(CKD) 23 (>60 ml/min/1.73 sqM); Potassium 4.1 mmol/L (3.5-5.1); Sodium 131 mmol/L (137-145)
--- NOTE | 2023-10-11 01:51 | XR ---
EXAM: XR Chest, 1 View CLINICAL HISTORY: ITS.REASON XR Reason: Respiratory Distress TECHNIQUE: Frontal view of the chest. COMPARISON: No relevant prior studies available. IMPRESSION: Cardiomegaly. Left pleural effusion. Mild vascular congestion.
[2023-10-11 04:54] VITALS: TEMP 97.8
[2023-10-11 07:27] VITALS: BP 138/79; PULSE 75; RESP 20
[2023-10-11] MEDS ORDERED: CHOLECALCIFEROL 25 MCG (1000 IU) TABLET ONE (10:01)
[2023-10-11] MEDS ORDERED: ASPIRIN 81 MG ONE (10:01)
[2023-10-11] MEDS ORDERED: carvediloL 6.25 MG TAB ONE (10:02)
[2023-10-11] MEDS ORDERED: PANTOPRAZOLE 40 MG TABLET PO ONE (10:02)
[2023-10-11] MEDS ORDERED: predniSONE 20 MG TAB ONE (10:02)
[2023-10-11] MEDS ORDERED: HYDROmorphone 0.5 MG/0.5 ML SYRINGE ONE ×2 (10:18→20:39)
--- NOTE | 2023-10-11 12:09 | PN ---
PROGRESS NOTE DATE OF SERVICE: 10/11/2023 SUBJECTIVE: The patient required a transfer to the ICU this morning due to worsening shortness of breath and chest pain. There were concerns for possible PE. She did have an elevated D-dimer. She is on AIRVO. She is status post Isaiah's procedure. Her hemoglobin is stable at 8.5. The patient reports the chest pain is on the left lower ribcage. SILVIO drain 45 mL of sanguinous output. It is dark. PHYSICAL EXAMINATION: GENERAL: She does appear short of breath. ABDOMEN: Incision site clean, dry, and intact. There is some mild ecchymosis at the incision site. SILVIO drain on the right with sanguinous output, ostomy bag on the left with stool present. ASSESSMENT: Pneumoperitoneum due to diverticulitis, status post Isaiah procedure. PLAN: Continue supportive care. Continue ICU management. Continue to monitor hemoglobin and hematocrit. Continue workup for her chest pain and shortness of breath per Critical Care Service. MMODL / IJN: [id number] /
[2023-10-11] MEDS ORDERED: HEPARIN SOD,PORK IN 0.45% NACL 250 ML IV ONE (15:25)
[2023-10-11] MEDS ORDERED: HEPARIN SODIUM 1,000 UN/ML (10ML VL) ONE (15:26)
[2023-10-11] MEDS ORDERED: HYDROcodone/APAP 10-325MG 1 EACH TAB ONE ×2 (16:13)
[2023-10-11] MEDS ORDERED: HYDROcodone/APAP 5-325MG 1 EACH TAB ONE ×4 (21:55→21:57)
[2023-10-11] MEDS ORDERED: PIPERACILLIN-TAZOBACTAM 3.375 GM VIAL ONE (23:57)
[2023-10-12] MEDS ORDERED: SODIUM CHLORIDE 0.9% 100 ML BAG ONE (00:01)
[2023-10-12] MEDS ORDERED: HEPARIN SOD,PORK IN 0.45% NACL 250 ML IV ONE (01:22)
[2023-10-12] MEDS ORDERED: PIPERACILLIN-TAZOBACTAM 3.375 GM VIAL ONE ×2 (05:15→21:23)
[2023-10-12] MEDS ORDERED: IPRATROPIUM-ALBUTEROL 3 ML NEB ONE ×2 (07:50→19:59)
[2023-10-12] MEDS ORDERED: CHOLECALCIFEROL 25 MCG (1000 IU) TABLET ONE (08:33)
[2023-10-12] MEDS ORDERED: PANTOPRAZOLE 40 MG TABLET PO ONE (08:33)
[2023-10-12] MEDS ORDERED: carvediloL 6.25 MG TAB ONE (08:33)
[2023-10-12] MEDS ORDERED: predniSONE 20 MG TAB ONE (08:33)
[2023-10-12] MEDS ORDERED: ASPIRIN 81 MG ONE (08:33)
[2023-10-12] MEDS ORDERED: FOLIC ACID 1 MG TAB ONE (08:33)
[2023-10-12] MEDS ORDERED: CALCIUM CARB-VIT D 500 MG-5 MCG TAB ONE (08:44)
[2023-10-12] MEDS ORDERED: HYDROmorphone 0.5 MG/0.5 ML SYRINGE ONE ×2 (11:07→15:23)
[2023-10-12] MEDS ORDERED: hydrALAZINE HCL 20 MG/ML 1 ML VIAL ONE (15:28)
[2023-10-12] MEDS ORDERED: ALPRAZolam 0.25 MG TAB ONE ×2 (20:58)
[2023-10-13] MEDS ORDERED: TORSEMIDE 20 MG TAB ONE (00:01)
[2023-10-13] MEDS ORDERED: SODIUM CHLORIDE 0.9% 100 ML BAG IV ONE (00:01)
[2023-10-13] MEDS ORDERED: SYMBICORT 160-4.5 MCG INHALER INHALATION ONE (00:01)
[2023-10-13] MEDS ORDERED: FLUCONAZOLE 100 MG TAB ONE (00:01)
[2023-10-13] MEDS ORDERED: ISOSORBIDE DINITRATE 10 MG TAB ONE (00:01)
[2023-10-13] MEDS ORDERED: FOLIC ACID 1 MG TAB ONE ×2 (00:01→10:34)
[2023-10-13] MEDS ORDERED: PIPERACILLIN-TAZOBACTAM 3.375 GM VIAL ONE ×3 (05:16→21:56)
[2023-10-13] MEDS ORDERED: hydrALAZINE HCL 20 MG/ML 1 ML VIAL ONE (05:16)
[2023-10-13] MEDS ORDERED: IPRATROPIUM-ALBUTEROL 3 ML NEB ONE ×2 (07:40→19:46)
[2023-10-13] MEDS ORDERED: HYDROmorphone 0.5 MG/0.5 ML SYRINGE ONE ×2 (07:48→14:06)
[2023-10-13] MEDS ORDERED: ASPIRIN 81 MG ONE (10:33)
[2023-10-13] MEDS ORDERED: PANTOPRAZOLE 40 MG TABLET PO ONE (10:33)
[2023-10-13] MEDS ORDERED: CHOLECALCIFEROL 25 MCG (1000 IU) TABLET ONE (10:33)
[2023-10-13] MEDS ORDERED: predniSONE 20 MG TAB ONE (10:34)
[2023-10-13] MEDS ORDERED: CALCIUM CARB-VIT D 500 MG-5 MCG TAB ONE (10:41)
[2023-10-13] MEDS ORDERED: HYDROcodone/APAP 10-325MG 1 EACH TAB ONE ×2 (10:48)
[2023-10-13] MEDS ORDERED: carvediloL 6.25 MG TAB ONE (17:36)
[2023-10-13] MEDS ORDERED: HEPARIN SOD,PORK IN 0.45% NACL 250 ML IV ONE (21:18)
[2023-10-14] MEDS ORDERED: SODIUM CHLORIDE 0.9% 100 ML BAG ONE (00:01)
[2023-10-14] MEDS ORDERED: FOLIC ACID 1 MG TAB ONE ×2 (00:01→10:20)
[2023-10-14] MEDS ORDERED: ISOSORBIDE DINITRATE 10 MG TAB ONE (00:01)
[2023-10-14] MEDS ORDERED: DAPTOmycin 500 MG VIAL ONE (00:01)
[2023-10-14] MEDS ORDERED: SODIUM CHLORIDE 0.9% 50 ML BAG ONE ×2 (00:01)
[2023-10-14] MEDS ORDERED: IPRATROPIUM-ALBUTEROL 3 ML NEB ONE ×3 (00:01→11:44)
[2023-10-14] MEDS ORDERED: SYMBICORT 160-4.5 MCG INHALER INHALATION ONE (00:01)
[2023-10-14] MEDS ORDERED: DESMOPRESSIN ACETATE 4 MCG/ML VIAL (MDV) ONE (00:01)
[2023-10-14] MEDS ORDERED: TORSEMIDE 20 MG TAB ONE (00:01)
[2023-10-14] MEDS ORDERED: HYDROmorphone 0.5 MG/0.5 ML SYRINGE ONE ×3 (04:06→15:54)
[2023-10-14] MEDS ORDERED: PIPERACILLIN-TAZOBACTAM 3.375 GM VIAL ONE ×3 (04:07→20:28)
[2023-10-14] MEDS ORDERED: carvediloL 6.25 MG TAB ONE ×2 (06:34→17:11)
[2023-10-14] MEDS ORDERED: CHOLECALCIFEROL 25 MCG (1000 IU) TABLET ONE (10:19)
[2023-10-14] MEDS ORDERED: ASPIRIN 81 MG ONE (10:19)
[2023-10-14] MEDS ORDERED: PANTOPRAZOLE 40 MG TABLET PO ONE (10:20)
[2023-10-14] MEDS ORDERED: predniSONE 20 MG TAB ONE (10:20)
[2023-10-14] MEDS ORDERED: CALCIUM CARB-VIT D 500 MG-5 MCG TAB ONE (10:23)
[2023-10-14] MEDS ORDERED: HEPARIN SOD,PORK IN 0.45% NACL 250 ML IV ONE (21:19)
[2023-10-15] MEDS ORDERED: SODIUM CHLORIDE 0.9% 250 ML BAG ONE (00:01)
[2023-10-15] MEDS ORDERED: SYMBICORT 160-4.5 MCG INHALER INHALATION ONE ×2 (00:01→20:05)
[2023-10-15] MEDS ORDERED: NOREPINEPHRINE 1 MG/ML 4 ML VIAL IV ONE (00:01)
[2023-10-15] MEDS ORDERED: DESMOPRESSIN ACETATE 4 MCG/ML VIAL (MDV) ONE (00:01)
[2023-10-15] MEDS ORDERED: PROPOFOL 10 MG/ML 100 ML VIAL IV ONE (00:01)
[2023-10-15] MEDS ORDERED: SODIUM CHLORIDE 0.9% 100 ML BAG IV ONE (00:01)
[2023-10-15] MEDS ORDERED: IPRATROPIUM-ALBUTEROL 3 ML NEB ONE ×2 (00:01→19:38)
[2023-10-15] MEDS ORDERED: SODIUM CHLORIDE 0.9% 50 ML BAG ONE (00:01)
[2023-10-15] MEDS ORDERED: HYDROmorphone 0.5 MG/0.5 ML SYRINGE ONE ×4 (02:06→17:09)
[2023-10-15] MEDS ORDERED: carvediloL 6.25 MG TAB ONE ×2 (05:33→16:51)
[2023-10-15] MEDS ORDERED: PIPERACILLIN-TAZOBACTAM 3.375 GM VIAL ONE ×3 (05:34→21:58)
[2023-10-15] MEDS ORDERED: CHOLECALCIFEROL 25 MCG (1000 IU) TABLET ONE (09:45)
[2023-10-15] MEDS ORDERED: ASPIRIN 81 MG ONE (09:45)
[2023-10-15] MEDS ORDERED: predniSONE 20 MG TAB ONE (09:46)
[2023-10-15] MEDS ORDERED: FOLIC ACID 1 MG TAB ONE (09:46)
[2023-10-15] MEDS ORDERED: PANTOPRAZOLE 40 MG TABLET PO ONE (09:46)
[2023-10-16] MEDS ORDERED: SYMBICORT 160-4.5 MCG INHALER INHALATION ONE (00:01)
[2023-10-16] MEDS ORDERED: IPRATROPIUM-ALBUTEROL 3 ML NEB ONE ×3 (00:01→20:10)
[2023-10-16] MEDS ORDERED: SODIUM CHLORIDE 0.9% 100 ML BAG IV ONE (00:01)
[2023-10-16] MEDS ORDERED: carvediloL 6.25 MG TAB ONE ×2 (05:59→19:45)
[2023-10-16] MEDS ORDERED: PIPERACILLIN-TAZOBACTAM 3.375 GM VIAL ONE ×2 (05:59→20:03)
[2023-10-16] MEDS ORDERED: HYDROmorphone 0.5 MG/0.5 ML SYRINGE ONE ×3 (08:20→21:18)
[2023-10-16] MEDS ORDERED: PANTOPRAZOLE 40 MG TABLET PO ONE (08:20)
[2023-10-16] MEDS ORDERED: FOLIC ACID 1 MG TAB ONE (08:20)
[2023-10-16] MEDS ORDERED: ASPIRIN 81 MG ONE (08:20)
[2023-10-16] MEDS ORDERED: predniSONE 20 MG TAB ONE (08:20)
[2023-10-16] MEDS ORDERED: CHOLECALCIFEROL 25 MCG (1000 IU) TABLET ONE (08:20)
[2023-10-16] MEDS ORDERED: POTASSIUM CHLORIDE ER 20 MEQ TAB.ER PO ONE ×2 (09:15)
[2023-10-16] MEDS ORDERED: ALPRAZolam 0.25 MG TAB ONE ×2 (22:52)
[2023-10-16] MEDS ORDERED: hydrALAZINE HCL 20 MG/ML 1 ML VIAL ONE (23:04)
[2023-10-16] MEDS ORDERED: propofoL 100 ML IV ONE ×2 (23:42)
[2023-10-17] MEDS ORDERED: SODIUM CHLORIDE 0.9% 100 ML BAG IV ONE (00:01)
[2023-10-17] MEDS ORDERED: IPRATROPIUM-ALBUTEROL 3 ML NEB ONE ×2 (00:01→07:20)
[2023-10-17] MEDS ORDERED: PIPERACILLIN-TAZOBACTAM 3.375 GM VIAL ONE ×3 (04:44→20:13)
[2023-10-17] MEDS ORDERED: propofoL 100 ML IV ONE ×8 (04:44→23:46)
[2023-10-17] MEDS ORDERED: carvediloL 6.25 MG TAB ONE (04:44)
[2023-10-17] MEDS ORDERED: CHOLECALCIFEROL 25 MCG (1000 IU) TABLET ONE (09:26)
[2023-10-17] MEDS ORDERED: ASPIRIN 81 MG ONE (09:26)
[2023-10-17] MEDS ORDERED: FOLIC ACID 1 MG TAB ONE (09:27)
[2023-10-17] MEDS ORDERED: predniSONE 20 MG TAB ONE (09:27)
[2023-10-17 11:49] LABS: Glucose,Whole Blood 157 mg/dL (70-110)
[2023-10-17] MEDS ORDERED: HYDROmorphone 0.5 MG/0.5 ML SYRINGE ONE (13:08)
[2023-10-18] MEDS ORDERED: IPRATROPIUM-ALBUTEROL 3 ML NEB ONE ×3 (00:01→19:06)
[2023-10-18] MEDS ORDERED: SODIUM CHLORIDE 0.9% 100 ML BAG IV ONE (00:01)
[2023-10-18] MEDS ORDERED: HYDROmorphone 0.5 MG/0.5 ML SYRINGE ONE (02:52)
[2023-10-18] MEDS ORDERED: propofoL 100 ML IV ONE ×8 (04:53→23:18)
[2023-10-18] MEDS ORDERED: PIPERACILLIN-TAZOBACTAM 3.375 GM VIAL ONE ×2 (04:53→21:08)
[2023-10-18] MEDS ORDERED: FOLIC ACID 1 MG TAB ONE (08:32)
[2023-10-18] MEDS ORDERED: CHOLECALCIFEROL 25 MCG (1000 IU) TABLET ONE (08:32)
[2023-10-18] MEDS ORDERED: predniSONE 20 MG TAB ONE (08:32)
[2023-10-18] MEDS ORDERED: PANTOPRAZOLE 40 MG/10 ML VIAL ONE ×2 (08:32)
[2023-10-18] MEDS ORDERED: CALCIUM CARBONATE 500 MG CHEWABLE PO ONE (08:32)
[2023-10-18 12:00] LABS: Glucose,Whole Blood 167 mg/dL (70-110)
[2023-10-18 13:01] LABS: Glucose,Whole Blood 169 mg/dL (70-110)
[2023-10-18 17:39] LABS: Glucose,Whole Blood 192 mg/dL (70-110)
[2023-10-18] MEDS ORDERED: CHLORHEXIDINE GLUCONATE 15 ML CUP MUCOUS MEM ONE ×2 (21:07)
[2023-10-19] MEDS ORDERED: SODIUM BICARB 8.4% 50 ML SYR (1 MEQ/ML) ONE ×2 (01:53)
[2023-10-23] MEDS ORDERED: HYDROcodone/APAP 5-325MG 1 EACH TAB ONE ×2 (09:31)
--- NOTE | 2023-10-25 13:02 | XR ---
EXAMINATION TYPE: XR chest 1V portable DATE OF EXAM: 10/11/2023 (dictated on 10/25/23 due to downtime) Comparison: 10/10/2023 Clinical History: 63-year-old female follow up right basilar opacity Findings: Right-sided double lumen hemodialysis catheter tips at the mid SVC. Slight leftward patient rotation but with volume loss in the left hemithorax. Focal bibasilar opacities, left greater than right are i ncreasing. Patchy opacity now extends up to the left mid lung level. Left heart margin now obscured b y adjacent pleural parenchymal opacity. Impression: Worsening volume loss and worsening opacity especially left mid and lower lung. Correlate for combina tion of partial atelectatic collapse, pleural effusion, and consolidation. Slight increasing opacity at the right base as well.
--- NOTE | 2023-10-29 15:52 | PN ---
PROGRESS NOTE DATE OF SERVICE: 10/17/2023 LOCATION: 254, in the ICU. REASON FOR FOLLOWUP: 1. Perforated diverticulitis with abscess. 2. Aspiration pneumonia. INTERVAL HISTORY: The patient did have worsening of her respiratory status. The patient ended up getting intubated last evening and the patient did have bronchoscopy done by membership manager this morning and apparently, the food was extracted out and has been sent for culture. As reported by the nursing staff, the patient is currently intubated on the vent and cannot provide any history. No other changes have been reported. PHYSICAL EXAMINATION: VITAL SIGNS: Blood pressure 121/74 with a pulse of 79. She is 90% on 100% FiO2. GENERAL: This is an elderly female, lying in bed, in no distress. RESPIRATORY SYSTEM: Unlabored breathing, decreased breath sounds on the bases. No wheeze. HEART: S1 and S2. Regular rate. ABDOMEN: Soft. No tenderness. EXTREMITIES: Mild swelling no redness LABORATORY DATA: Creatinine 1.26. White count is 3.73. DIAGNOSTIC IMPRESSION AND PLAN: The patient with initial perforated diverticulitis with abdominal abscess, status post diverting colostomy. Abdominal culture positive for multiple pathogen. The patient is broadly covered with Zosyn, daptomycin, and Diflucan to continue, the patient with worsening of respiratory status, concern for possible aspiration pneumonia. The patient did have bronchoscopy completed this morning and culture results will be followed and antibiotic adjusted if needed. JAMESL / ARTURON: [id number] / MTDD
--- NOTE | 2023-10-29 15:52 | PN ---
PROGRESS NOTE DATE OF SERVICE: 10/18/2023 LOCATION: 254. REASON FOR FOLLOWUP: Sepsis secondary to perforated diverticulitis, abscess, and aspiration pneumonia. INTERVAL HISTORY: Patient is afebrile. The patient remains to be intubated on the vent. Apparently, the patient did not tolerate her dialysis today and has required more pressor support. No significant purulent secretions through the ET or any other changes reported by the nursing staff. PHYSICAL EXAMINATION: VITAL SIGNS: Blood pressure 135/66, pulse of 95, temperature 98. GENERAL DESCRIPTION: This is an elderly female, intubated on the vent. RESPIRATORY SYSTEM: Unlabored breathing clear to auscultation anteriorly. HEART: S1, S2. Regular rate and rhythm. ABDOMEN: Soft. No tenderness. SKIN EXAMINATION: Shows multiple bruises. LABORATORY DATA: Reviewed. DIAGNOSTIC IMPRESSION AND PLAN: Patient with sepsis, source is multifactorial in this patient who did have perforated diverticulitis with abdominal abscess, status post diverting colostomy with complicating factor of worsening respiratory status and possible aspiration pneumonia. Cultures are currently pending. Patient is broadly covered with daptomycin, Zosyn, and fluconazole to continue and monitor clinical course closely. Prognosis remains to be guarded. MMODL / IJN: [id number] /
--- NOTE | 2023-10-29 15:52 | PN ---
PROGRESS NOTE CHIEF COMPLAINT: Colon perforation. INTERVAL HISTORY: The patient remains on the ventilator. The patient is now on both Levophed and vasopressin. Patient tolerating tube feeds at 10 mL/hour. Hemoglobin stable at 8.8, white blood cell count 6.2. Abdomen soft, nondistended, minimal bloody drainage from the mid aspect of the incision where there is some ecchymosis present, no significant bleeding present, nontender, ostomy functioning. IMPRESSION: Sigmoid colon perforation. PLAN: Patient remains on the ventilator at this time. Patient with some increased pressor requirements. Labs stable. Tolerating tube feeds currently. Continue antibiotics. Continue supportive care. MMODL / IJN: [id number] /
--- NOTE | 2023-11-02 10:54 | US ---
Site ID [facility] Patient Milka Coulter M ID [id number] Age/Gender: 63Y, F Order # N/A Procedure US venous doppler duplex LE BI Date 10/12/2023 10:07:00 AM EXAMINATION TYPE: US venous doppler duplex LE BI DATE OF EXAM: 10/28/2023 5:53 PM COMPARISON: NONE CLINICAL INDICATION: Female, 63 year old with history of pulmonary embolism. SIDE PERFORMED: Bilateral TECHNIQUE: The lower extremity deep venous system is examined utilizing real time linear array sonog alaina with graded compression, doppler sonography and color-flow sonography. VESSELS IMAGED: Common Femoral Vein Deep Femoral Vein Greater Saphenous Vein * Femoral Vein Popliteal Vein Small Saphenous Vein * Proximal Calf Veins (* superficial vessels) Grayscale, color doppler, spectral doppler imaging performed of the deep veins of the lower extremiti es. There is normal flow, compressibility, vascular waveforms. Right Leg: Negative for DVT Left Leg: Negative for DVT IMPRESSION: No deep venous thrombosis of the bilateral lower extremities.
[2023-11-03 13:18] LABS: Chloride 101 mmol/L (98-107); Glucose 104 mg/dL (74-99); Potassium 4.6 mmol/L (3.5-5.1); Sodium 127 mmol/L (137-145)
[2023-11-03 13:19] LABS: AST 67 U/L (14-36); Albumin 2.6 g/dL (3.5-5.0); Albumin/Globulin Ratio 1.2; Anion Gap 3 mmol/L; Blood Urea Nitrogen 59 mg/dL (7-17); Calcium 8.4 mg/dL (8.4-10.2); Carbon Dioxide 23 mmol/L (22-30); Globulin 2.2 g/dL; Total Bilirubin 0.7 mg/dL (0.2-1.3); Total Protein 4.8 g/dL (6.3-8.2)
[2023-11-03 13:20] LABS: ALT 29 U/L (4-34); Alkaline Phosphatase 74 U/L (38-126)
[2023-11-03 13:21] LABS: HCT 26.4 % (34.0-46.0); HGB 8.5 gm/dL (11.4-16.0); MCHC 32.2 g/dL (31.0-37.0); MCV 102.5 fL (80.0-100.0); Platelet Count 168 k/uL (150-450); RBC 2.58 m/uL (3.80-5.40); RDW 21.4 % (11.5-15.5); WBC 13.6 k/uL (3.8-10.6)
[2023-11-03 13:22] LABS: Basophils % (A) 0 %; Eosinophils % (A) 0 %; Lymphocytes # (A) 0.2 k/uL (1.0-4.8); Lymphocytes % (A) 1 %; Monocytes # (A) 0.2 k/uL (0-1.0); Monocytes % (A) 2 %; Neutrophils # (A) 13.1 k/uL (1.3-7.7); Neutrophils % (A) 96.9
--- NOTE | 2023-11-05 08:35 | XR ---
EXAMINATION TYPE: XR chest 1V DATE OF EXAM: 10/17/2023 11:57 AM CLINICAL INDICATION: Ventilator protocol COMPARISON: Chest radiographs from 10/11/2023 TECHNIQUE: XR chest 1V Frontal view of the chest. FINDINGS: Right Lungs/Pleura: Blunting of left costophrenic angle There is no evidence of right pleural effusion, foc al consolidation, or pneumothorax. Pulmonary vascularity: Unremarkable. Heart/mediastinum: Cardiomediastinal silhouette is unremarkable. Musculoskeletal: No acute osseous pathology. Other findings: None Lines/Tubes: Endotracheal tube with distal tip 5.7 cm above the faustino. Nasogastric tube with its distal tip and side-port projecting under the diaphragm. Right internal jugular central venous catheter with distal tip at the cavoatrial junction. Left thoracotomy tube without evidence of pneumothorax. IMPRESSION: 1. Lines and tubes in satisfactory position small pleural effusion on the left. 2. Left thoracotomy tube no evidence for pneumothorax.
--- NOTE | 2023-11-05 08:51 | XR ---
Site ID [facility] Patient Milka Coulter M ID [id number] 1960 Age/Gender: 63Y, F Order # N/A Procedure XR Chest 1 View Date 10/13/2023 4:56:00 AM EXAMINATION TYPE: Chest X-ray 1 View DATE RECEIVED ON: 10/30/2023 DATE PERFORMED: 10/13/2023 COMPARISON: 10/11/2023 HISTORY: Right basilar opacity follow-up TECHNIQUE: Single frontal view of the chest is obtained. FINDINGS: Blunting of both costophrenic angles with bibasilar opacities. The right basilar opacity s omewhat. Decreased left basilar opacity. No pneumothorax. Prominent perihilar vasculature. Right dual -lumen IJ hemodialysis catheter with tip terminating in the mid SVC again. Cardiomegaly. Patient is r otated which limits evaluation. Emphysematous changes suggested. No acute osseous abnormality. IMPRESSION: Redemonstration of bibasilar opacities with small bilateral pleural effusions. Similar right basilar opacity with decreased left basilar opacity. Etiologies include atelectasis versus pneumonia in the a ppropriate clinical setting.
--- NOTE | 2023-11-05 17:11 | XR ---
EXAMINATION TYPE: XR chest 1V DATE OF EXAM: 11/05/2023 3:42 PM COMPARISON: Chest radiographs from 10/17/2023 TECHNIQUE: XR chest 1V Frontal view of the chest. CLINICAL INDICATION:Female, 63 years old with history of INTUBATED; FINDINGS: Patient is rotated which limits the evaluation. Lungs/Pleura: Blunting of both costophrenic angles. Hyperinflation. Chronic interstitial lung changes . Interval removal of left thoracotomy tube. Right basilar patchy airspace opacities redemonstrated. No sizable pneumothorax. Pulmonary vascularity: Unremarkable. Heart/mediastinum: Cardiomediastinal silhouette is unremarkable. Musculoskeletal: No acute osseous pathology. Other findings: None Lines/Tubes: Interval removal of left thoracotomy tube. NG tube with distal tip in the stomach. Sidehole at the GE junction. Right IJ dual lumen dialysis catheter distal tip in the region of the mid SVC. Endotracheal tube in stable position with distal tip approximately 4.8 cm above the faustino. IMPRESSION: 1. Small bilateral pleural effusions with right basilar patchy airspace opacity which may represent atelectasis versus pneumonia in the appropriate clinical setting. 2. COPD changes. 3. NG tube with sidehole at the GE junction. Recommend advancement of approximately 8 cm. 4. Interval removal of left thoracotomy tube. No sizable pneumothorax.
--- NOTE | 2023-11-14 20:55 | CDI ---
Documentation Clarification Form Date: 11/14/2023 08:37:50 PM From: Annie Be Phone: Admit Date: 09/21/2023 02:34:00 PM Patient Name: Milka Coulter Visit Number: [id number] Discharge Date: 10/19/2023 03:15:00 AM ATTENTION: The Clinical Documentation Specialists (CDI) and [facility] Coding Staff appreciate your assistance in clarifying documentation. Please respond to the clarification below the line at the bottom and electronically sign. The CDI & [facility] Coding staff will review the response and follow-up if needed. Please note: Queries are made part of the Legal Health Record. If you have any questions, please contact the author of this message via ITS. Doctor/Provider: Franklin Marrero Severe hypotension is documented per Internal Med Progress Note 10/17 (page 49 of 50 paper chart). Additional clarification regarding this diagnosis is requested. History/Risk Factors: 63yo F, Sepsissecondary toperforated diverticulitis,abscess, AHRF, AECOPD w PNA, ACSHF, NSTEMI II, ACKD, Hx vasculitis& PE/DVTmaintained on Coumadin, CM, asp PNA, former smoker Clinical Indicators: VS: BP 135/66, pulse of 95, temperature 98. Treatment: maintained on Levophedand vasopressin. Pt had to be d/c early today due to severe hypotension. Pt had previously been intubated. Pt was made DNR and comfort care. Patient passed Can the hypotension be further specified? [ ] Hypotension due to hemodialysis [ ] Hypotension due to shock (specify type of shock) [ ] Other Condition, please specify [ ] Unable to determine (Template Last Revised: May 2020) MTDD
--- NOTE | 2023-11-14 20:57 | CDI ---
Documentation Clarification Form Date: 11/14/2023 08:50:56 PM From: Annie Be Phone: Admit Date: 09/21/2023 02:34:00 PM Patient Name: Milka Coulter Visit Number: [id number] Discharge Date: 10/19/2023 03:15:00 AM ATTENTION: The Clinical Documentation Specialists (CDI) and [facility] Coding Staff appreciate your assistance in clarifying documentation. Please respond to the clarification below the line at the bottom and electronically sign. The CDI & [facility] Coding staff will review the response and follow-up if needed. Please note: Queries are made part of the Legal Health Record. If you have any questions, please contact the author of this message via ITS. Doctor/Provider: Peter Bhatia Shock is documented per your handwritten Progress Note page 48 or 50 of paper chart. Additional clarification regarding the type of shock is requested. Patient history/risk factors: 63yo F, Sepsis secondary to perforated diverticulitis, abscess, AHRF, AECOPD w PNA, ACSHF, NSTEMI II, ACKD, Hx vasculitis & PE/DVT maintained on Coumadin, CM, asp PNA, former smoker Clinical Indicators: Pt unresponsive; morphine drip ABG 7. Treatment: Treatment: maintained on Levophed and vasopressin. Pt had to be d/c early today due to severe hypotension. Pt had previously been intubated. Pt was made DNR and comfort care. Patient passed Please clarify the type of shock, if known: [ ] Cardiogenic Shock [ x] Septic Shock [ ] Other, please specify [ ] Unable to determine (Template Last Revised: May 2020) MTDD
--- NOTE | 2023-11-15 14:02 | CDI ---
Documentation Clarification Form Date: 11/15/2023 01:42:54 PM From: Annie Be Phone: Admit Date: 09/21/2023 02:34:00 PM Patient Name: Milka Coulter Visit Number: [id number] Discharge Date: 10/19/2023 03:15:00 AM ATTENTION: The Clinical Documentation Specialists (CDI) and [facility] Coding Staff appreciate your assistance in clarifying documentation. Please respond to the clarification below the line at the bottom and electronically sign. The CDI & [facility] Coding staff will review the response and follow-up if needed. Please note: Queries are made part of the Legal Health Record. If you have any questions, please contact the author of this message via ITS. Doctor/Provider: Jesus Manuel Camacho Acute onchronic kidney disease is documented per H&P and Nephrology Consult Note and throughout the Progress Notes. Additional clarification regarding the stage of CKD is requested. History/Risk Factors: 63yo F,severe sepsisd/tperforated diverticulitis wabscess,AHRF,AECOPDwPNA, ACSHF,NSTEMIII, ACKD, Hx vasculitis PE/DVTmaintained on Coumadin, CM, aspPNA,former smoker Clinical Indicators: BUN 47 Creatinine 1.56 Est GFR (CKD-EPI) AfAm 41 Est GFR (CKD-EPI) NonAf 36 Treatment: Per Internal Med Progress Note 10/17 (page 49/ 50 paper chart), Pt maintained on Levophedandvasopressin. HD had to be d/c early today due to severehypotension. Pt had been intubated. Pt was madeDNR andcomfort care. Pt passed Nephrology Consult: DENICE d/t ANCA vasculitis. Also component of cardiorenal syndrome. Creatinine 1. 56 today. Renal function has been gradually improving. Creatinine was 1. 9 dated September 07, 2023. Pt wasHD dependentbut was recently taken offHD. She still has permacath. USfrom June 2023showed no evidence ofhydronephrosis. ANCA vasculitismaintained on prednisone. Status post2 doses of IV rituximab1 g completed August 2023. Plan:Maintain Lasix. Add Farxiga. Resume prednisone along with Bactrim upon discharge. Currently on IV Solu-Medrol and antibiotics. Will DC permacath this admission if renal function remains stable. Avoid nephrotoxins. Continue to monitor renal function and urine output. Please clarify the stage of the CKD, if known: [ ] CKD Stage 3a [ x] CKD Stage 3b [ ] CKD Stage 4 [ ] Other, please specify [ ] Unable to determine Reference: National [employer] Stage 1 eGFR = 90 and kidney damage for =3 months Stage 2 eGFR 60-89 and kidney damage for =3 months Stage 3a eGFR 45-59 and kidney damage for =3 months Stage 3b eGFR 30-44 and kidney damage for =3 months Stage 4 eGFR 15-29 r and kidney damage for =3 months Stage 5 eGFR <15 and kidney damage for =3 months (Template last revised: March 2023) MTDD
--- NOTE | 2023-11-16 09:22 | XR ---
EXAMINATION TYPE: XR chest 1V DATE OF EXAM: 10/15/2023 COMPARISON: None available during downtime HISTORY: 63-year-old female follow-up pneumonia TECHNIQUE: Single frontal view of the chest is obtained. FINDINGS: Right-sided double-lumen hemodialysis catheter, tips at the mid SVC level. Heart upper meneses its of normal size. Hyperinflation. Some patchy perihilar and bibasilar densities are present along w ith a small left pleural effusion. IMPRESSION: COPD with patchy perihilar and bibasilar infiltrates as well as a small left pleural effusion.
--- NOTE | 2023-11-16 11:30 | CT ---
Site ID synapse default Patient Milka Coulter ID [id number] EXAMINATION TYPE: CT abdomen pelvis w con CT DLP: 617.9 mGycm, Automated exposure control for dose reduction was used. DATE OF EXAM: 10/16/2023 11:42 AM COMPARISON: THIS EXAM WAS READ DURING PACS DOWNTIME, NO PRIORS AVAILABLE. CLINICAL INDICATION:sigmoid & ostomy colon removal. Iso 370 80 ml. DLP: 617.9 TECHNIQUE: Axial CT abdomen pelvis w con;Sagittal and coronal reformats were created on a separate w orkstation. Contrast used: Iso 370 80 ml. Oral contrast used: (none if empty) FINDINGS: LOWER CHEST: Consolidation of the lung bases bilaterally. ABDOMEN LIVER: Unremarkable GALLBLADDER AND BILE DUCTS: Unremarkable. PANCREAS: Unremarkable. SPLEEN: Unremarkable. ADRENAL GLANDS: Unremarkable. KIDNEYS AND URETERS: No evidence of hydronephrosis or renal calculus. The ureters are unremarkable. PELVIS BLADDER: Unremarkable REPRODUCTIVE: Was thought to represent the uterus surrounded by fluid versus remnant uterus from prio r surgery. ABDOMEN & PELVIS STOMACH AND BOWEL: No evidence of bowel obstruction. Postsurgical changes to the colon. Scattered col onic diverticula. Left lower quadrant ostomy present. PERITONEUM/RETROPERITONEUM: No evidence of pneumoperitoneum or free fluid. Geoffrey-Rich drainage tub e layering in the pelvis with what is thought to be complex fluid near the uterus/surgical bed of the uterus. VASCULATURE: Mild atherosclerotic calcifications are present throughout the abdominal aorta and its b ranches. No evidence of aortic aneurysm. MUSCULOSKELETAL: No acute osseous abnormalities LYMPH NODES: No gross evidence for lymphadenopathy. SOFT TISSUE/ABDOMINAL WALL: Midline skin willam present. Left lower quadrant ostomy present. IMPRESSION: 1. Post surgical changes with ostomy in place. 2. Geoffrey-Rich drainage tube position in the pelvis thought to be surrounded by what is thought to be complex fluid. 3. Scattered colonic diverticula. 4. Consolidation changes in the lung bases please see dedicated CT chest same day.
--- NOTE | 2023-11-16 11:30 | CT ---
Site ID [facility] Patient Milka Coulter ID [id number] EXAMINATION TYPE: CT chest angio for PE CT DLP: 220 mGycm, Automated exposure control for dose reduction was used. DATE OF EXAM: 10/16/2023 11:47 AM COMPARISON: THIS EXAM WAS READ DURING PACS DOWNTIME, NO PRIORS AVAILABLE. CLINICAL INDICATION:PE & Hypoxic. Iso 370 80 ml. DLP: 220 TECHNIQUE/CONTRAST: CTA scan of the thorax is performed with IV Contrast, patient injected with 80 mL of Isovue 370, MIP images are created and reviewed these are created on a separate workstation.. FINDINGS: Pulmonary Artery: There is no evidence for a filling defect within the pulmonary vasculature to sugge st acute pulmonary embolism. The pulmonary artery is of normal size. Lungs/Pleura: Elevation of the lung bases bilaterally. Centrilobular emphysema changes throughout the lungs some patchy consolidation changes present throughout the upper lungs. No evidence of pleural e ffusion or pneumothorax. Airway: There is cut off of the right lower lung large airway extending into and area of what is thou ght to be atelectasis given recent surgery. Heart: Heart is within normal limits for size. Vasculature: No evidence of aortic aneurysm. Mediastinum: No gross evidence of adenopathy. Musculoskeletal: No acute osseous abnormalities Soft Tissues/lymph nodes: Unremarkable. Lower neck: No significant findings. Upper Abdomen: No significant findings. IMPRESSION: 1. No evidence of pulmonary embolism. 2. Patchy airspace opacities throughout the lungs with superimposed emphysema. Correlate for infectious inflammatory process superimposed on emphysema. 3. Consolidation of the lung bases also present. Cutoff of the bilateral bronchi correlate for mucus plugging/aspiration versus patient's low inspiratory efforts post surgery. Consider deep inspiration to open lungs and reevaluate.
--- NOTE | 2023-11-18 18:20 | XR ---
Patient Milka Coulter ID [id number] Order # EXAMINATION TYPE: XR chest 1V DATE OF EXAM: 10/24/2023 COMPARISON: No comparison available on downtime PACS. INDICATION: Worsening shortness of breath TECHNIQUE: Single frontal view of the chest is obtained. FINDINGS: The heart size is normal. The pulmonary vasculature is normal. Left lower lobe infiltrates present. Small left pleural effusion is likely present. Minimal right ple ural effusion is present. Catheters on the right with the tip in the superior vena cava region. IMPRESSION: 1. Fluoroscopy lobe infiltrate. 2. Small left minimal right pleural effusions.
--- NOTE | 2023-11-22 08:18 | XR ---
Site ID [facility] Patient Milka Coulter ID [id number] EXAMINATION TYPE: XR chest 1V DATE OF EXAM: 10/16/2023 10:27 AM CLINICAL INDICATION:Inpatient. Hypoxia/Resp Failure. Prior from yesterday on this PACS. COMPARISON: Chest radiograph from one day prior. TECHNIQUE: XR chest 1V Frontal view of the chest. FINDINGS: Lungs/Pleura: No evidence of focal consolidation or pneumothorax. Blunting of the costophrenic angles is present. Pulmonary vascularity: Pulmonary vascular congestion. Heart/mediastinum: Cardiomediastinal silhouette is unremarkable. Musculoskeletal: No acute osseous pathology. Other findings: None Lines/Tubes: Right internal jugular central venous catheter with distal tip at the cavoatrial junction. IMPRESSION: 1. Stable exam with mild interstitial prominence and emphysema. 2. Small bilateral pleural effusions.
--- NOTE | 2023-12-07 12:01 | US ---
EXAMINATION TYPE: US venous doppler duplex LE DATE OF EXAM: 10/11/2023 COMPARISON: NONE CLINICAL INDICATION: Female, 63 years old with history of PE; SIDE PERFORMED: Bilateral TECHNIQUE: The lower extremity deep venous system is examined utilizing real time linear array sonog alaina with graded compression, color doppler sonography, and spectral doppler. VESSELS IMAGED: Common Femoral Vein Deep Femoral Vein Greater Saphenous Vein * Femoral Vein Popliteal Vein Small Saphenous Vein * Proximal Calf Veins (* superficial vessels) Right Leg: Negative for DVT Left Leg: Negative for DVT IMPRESSION: Grayscale, color doppler, spectral doppler imaging performed of the deep veins of the lo wer extremities. There is normal flow, compressibility, vascular waveforms. [facility], , 12/07/2023 11:58 AM
== END 2023-10-19 03:15 | disposition expired | DRG 710 ==
LOC: EC 13:39 → 3SCARD 14:34 → 2SICU 09-23 16:45 → 4SSUR 09-24 18:42 → 2SICU 10-10 22:04
PROVIDERS: ADMIT Internal Medicine; ATTEND Internal Medicine
PROC: 5A09357 Assistance with Respiratory Ventilation, Less than 24 Consecutive Hours, Continuous Positive Airway Pressure (ICD-10-PCS; 2023-09-21)
PROC: 0D1N0Z4 Bypass Sigmoid Colon to Cutaneous, Open Approach (ICD-10-PCS; 2023-09-23)
PROC: 30233K1 Transfusion of Nonautologous Frozen Plasma into Peripheral Vein, Percutaneous Approach (ICD-10-PCS; 2023-09-23)
PROC: 0DBN0ZZ Excision of Sigmoid Colon, Open Approach (ICD-10-PCS; principal; 2023-09-23 16:20)
PROC: 30233N1 Transfusion of Nonautologous Red Blood Cells into Peripheral Vein, Percutaneous Approach (ICD-10-PCS; 2023-09-25)
PROC: 5A1D70Z Performance of Urinary Filtration, Intermittent, Less than 6 Hours Per Day (ICD-10-PCS; 2023-09-28)
PROC: 3E0G76Z Introduction of Nutritional Substance into Upper GI, Via Natural or Artificial Opening (ICD-10-PCS; 2023-10-16)
PROC: 03HY32Z Insertion of Monitoring Device into Upper Artery, Percutaneous Approach (ICD-10-PCS; 2023-10-17)
PROC: 4A133B1 Monitoring of Arterial Pressure, Peripheral, Percutaneous Approach (ICD-10-PCS; 2023-10-17)
PROC: 4A133J1 Monitoring of Arterial Pulse, Peripheral, Percutaneous Approach (ICD-10-PCS; 2023-10-17)
PROC: 0BH18EZ Insertion of Endotracheal Airway into Trachea, Via Natural or Artificial Opening Endoscopic (ICD-10-PCS; 2023-10-17)
PROC: 5A1945Z Respiratory Ventilation, 24-96 Consecutive Hours (ICD-10-PCS; 2023-10-17)
PROC: 3E033XZ Introduction of Vasopressor into Peripheral Vein, Percutaneous Approach (ICD-10-PCS; 2023-10-18)
DX: A41.81 Sepsis due to Enterococcus (principal); K94.01 Colostomy hemorrhage; J96.01 Acute respiratory failure with hypoxia; I26.99 Other pulmonary embolism without acute cor pulmonale; R65.21 Severe sepsis with septic shock; J69.0 Pneumonitis due to inhalation of food and vomit; I50.23 Acute on chronic systolic (congestive) heart failure; K65.9 Peritonitis, unspecified; J44.0 Chronic obstructive pulmonary disease with (acute) lower respiratory infection; Z66 Do not resuscitate; Z51.5 Encounter for palliative care; J44.1 Chronic obstructive pulmonary disease with (acute) exacerbation; I21.A1 Myocardial infarction type 2; N17.8 Other acute kidney failure; I42.9 Cardiomyopathy, unspecified; I27.20 Pulmonary hypertension, unspecified; I13.0 Hypertensive heart and chronic kidney disease with heart failure and stage 1 through stage 4 chronic kidney disease, or unspecified chronic kidney disease; D69.6 Thrombocytopenia, unspecified; D68.32 Hemorrhagic disorder due to extrinsic circulating anticoagulants; K56.7 Ileus, unspecified; I77.82 Antineutrophilic cytoplasmic antibody [ANCA] vasculitis; N17.0 Acute kidney failure with tubular necrosis; N18.32 Chronic kidney disease, stage 3b; G72.81 Critical illness myopathy; G92.8 Other toxic encephalopathy; B37.89 Other sites of candidiasis; J18.9 Pneumonia, unspecified organism; K66.8 Other specified disorders of peritoneum; E87.1 Hypo-osmolality and hyponatremia; D62 Acute posthemorrhagic anemia; D63.1 Anemia in chronic kidney disease; K57.20 Diverticulitis of large intestine with perforation and abscess without bleeding; I08.3 Combined rheumatic disorders of mitral, aortic and tricuspid valves; T45.515A Adverse effect of anticoagulants, initial encounter; H57.02 Anisocoria; B95.2 Enterococcus as the cause of diseases classified elsewhere; R53.81 Other malaise; K57.30 Diverticulosis of large intestine without perforation or abscess without bleeding; D64.89 Other specified anemias; E53.8 Deficiency of other specified B group vitamins; B96.6 Bacteroides fragilis [B. fragilis] as the cause of diseases classified elsewhere; S61.412A Laceration without foreign body of left hand, initial encounter; F41.9 Anxiety disorder, unspecified; Z16.21 Resistance to vancomycin; Y83.2 Surgical operation with anastomosis, bypass or graft as the cause of abnormal reaction of the patient, or of later complication, without mention of misadventure at the time of the procedure; Z53.8 Procedure and treatment not carried out for other reasons; Z79.51 Long term (current) use of inhaled steroids; Z79.899 Other long term (current) drug therapy; Z86.711 Personal history of pulmonary embolism; Z79.01 Long term (current) use of anticoagulants; Z86.718 Personal history of other venous thrombosis and embolism; Z87.891 Personal history of nicotine dependence; Z11.52 Encounter for screening for COVID-19; Z92.22 Personal history of monoclonal drug therapy; Z79.52 Long term (current) use of systemic steroids
CPT/HCPCS: 36410; 36415; 36600; 70450; 71045; 71275; 74176; 74177; 80048; 80053; 80061; 81001; 82550; 82607; 82728; 82746; 82805; 83516; 83540; 83550; 83605; 83735; 83880; 83921; 84132; 84207; 84484; 85025; 85027; 85049; 85379; 85610; 85730; 86038; 86160; 86162; 86235; 86255; 86706; 86850; 86900; 86901; 86920; 87040; 87070; 87075; 87077; 87186; 87205; 87340; 87449; 87636; 88307; 90935; 93005; 93306; 93880; 93970; 94002; 94003; 94640; 94660; 94667; 94668; 94760; 96365; 96366; 96367; 96368; 96375; 96376; 99291